=== PATIENT | male | born 1935 | race Caucasian/White ===

== ENCOUNTER → 2020-05-31 | Outpatient (CLI) | payer MEDICARE ==
[~2020-05-31] MED LIST: HYDR-3363 PO; METF-839 PO; NEXI20CA33 PO; TRAM50TA2 PO
--- NOTE | 2020-05-31 13:10 | REP ---
INDICATION: LIVER LESION. Question of liver lesion. Bladder carcinoma. COMPARISON: Comparison CT abdomen pelvis and chest from [facility] December 14, 2019.. TECHNIQUE: Axial and coronal T1 and T2 weighted sequences include spin echo, fast spin echo, diffusion-weighted scans, and in and out of phase imaging. The patient's EGFR was 14 today and therefore we are on the unable to administer gal contrast a period FINDINGS: Axial and sagittal T1 and T2 weighted scans show homogeneous liver parenchyma without evidence of liver mass lesion. No hepatic cyst is observed. No filling defect is seen in the gallbladder. The spleen is normal in size homogeneous in texture. There appear to be is bilateral pleural effusions, right greater than left. There is moderate bilateral hydronephrosis and hydroureter. The right-sided hydronephrosis is new when compared with the December 14, 2019 study. The left-sided hydronephrosis and hydroureter are more pronounced. There is a cyst in the lower pole the right kidney measuring 3.0 cm in diameter. No renal mass lesion is observed. Diffusion-weighted scans show no significant additional finding. In and out of phase images are unremarkable. No visible adrenal lesion. No retroperitoneal mass or adenopathy is observed. There is no evidence of ascites. IMPRESSION: There is no evidence of liver mass lesion. There is new hydronephrosis on the right and increased hydronephrosis on the left consistent with significant obstructive uropathy. I am told the patient's EGFR is 14. Consider urinary diversion. There is a small right renal cyst. There are small bilateral pleural effusions which are new compared with the December 2019 CT as well. <Electronically signed by Adarsh Martinez > 05/31/20 [id number]
== END ==
LOC: M RAD 11:07
PROVIDERS: ATTEND Internal Medicine Hematology & Oncology
DX: K76.89 Other specified diseases of liver (principal); N13.1 Hydronephrosis with ureteral stricture, not elsewhere classified; N28.1 Cyst of kidney, acquired; J90 Pleural effusion, not elsewhere classified

== ENCOUNTER 2020-06-13 18:49 | Inpatient (IN) | payer MEDICARE ==
[~2020-06-13] VITALS: Ht 165.1 cm; Wt 67.9 kg
[2020-06-13] MEDS ORDERED: LIDOCAINE 2% 5ML JELLY UROJET TOP ONE (20:30)
[2020-06-13 22:05] LABS: BASO % 0.5 % (0.0-1.0); EOS # 0.1 10^3/uL (0.0-0.5); EOS % 1.3 % (0.0-3.0); HEMOGLOBIN 9.9 g/dl (13.5-17.5); LYMPH # 1.4 10^3/uL (1.5-5.0); LYMPH % 22.3 % (24.0-44.0); MEAN CORPUSCULAR HEMOGLOBIN 29.5 pg (27.0-33.0); MEAN CORPUSCULAR HGB CONC 30.9 g/dl (32.0-36.5); MEAN CORPUSCULAR VOLUME 95.2 fl (80.0-96.0); MONO # 0.6 10^3/uL (0.0-0.8); MONO % 8.7 % (0.0-5.0); NEUTROPHILS # 4.2 10^3/uL (1.5-8.5); NEUTROPHILS % 66.7 % (36.0-66.0); PLATELET COUNT, AUTOMATED 224 10^3/uL (150-450); RED BLOOD COUNT 3.36 10^6/uL (4.30-6.10); WHITE BLOOD COUNT 6.3 10^3/uL (4.0-10.0)
--- NOTE | 2020-06-13 22:07 | REPVR ---
PROCEDURE INFORMATION: Exam: XR Chest, 1 View Exam date and time: 06/13/2020 9:51 PM Age: 84 years old Clinical indication: Other: R/O pna TECHNIQUE: Imaging protocol: XR of the chest Views: 1 view. COMPARISON: CT CHEST W/ CONTRAST - OUTSIDE PRIOR 12/14/2019 12:00 AM FINDINGS: Lungs: Increased interstitial markings demonstrated bilaterally. No segmental or lobar infiltrates. Pleural space: Unremarkable. No pleural effusion. No pneumothorax. Heart/Mediastinum: Unremarkable. No cardiomegaly. Bones/joints: Degenerative arthropathy both glenohumeral joints. IMPRESSION: No acute findings. Electronically signed by: Savage Rand On 06/13/2020 22:08:05 PM
[2020-06-13 22:34] LABS: ALBUMIN 3.2 GM/DL (3.2-5.2); BILIRUBIN,TOTAL 0.4 MG/DL (0.2-1.0); CALCIUM LEVEL 7.7 MG/DL (8.8-10.2); CREATININE FOR GFR 8.78 MG/DL (0.70-1.30); GLOMERULAR FILTRATION RATE 6.2 (>35); TOTAL PROTEIN 6.1 GM/DL (6.4-8.2)
[2020-06-13] MEDS ORDERED: DEXTROSE 50% 50 ML SYRINGE IV STA (22:34)
[2020-06-13] MEDS ORDERED: HumuLIN R (REGULAR) INSULIN (NovoLIN R) **100U/ML** PER UNIT IV STA (22:34)
[2020-06-13 22:35] LABS: POTASSIUM SERUM 6.6 MEQ/L (3.5-5.1)
[2020-06-13] MEDS ORDERED: SOD POLYSTYRENE SULFONATE SUSP 15 GM/60 ML UD PO ONE (22:45)
[2020-06-13] MEDS ORDERED: ALBUTEROL SULFATE 2.5 MG/0.5 ML INH NEB SOLN NEB ONE (22:45)
--- NOTE | 2020-06-13 22:46 | ED PDOC ---
Post-Departure Follow-Up 84 yo M with a history of bladder carcinoma s/p TURBT (October 2019) and NIDDM prese nts with difficulty urinating. He reports that he had a quiles catheter placed approximately 8 months ago due to urinary incontinence. His cath was changed approximately 3 weeks ago, and typically fills his leg bag every 3-4 hours. However, about 2 days ago he stopped draining any urine into his quiles bag. He is also complaining of sharp pleuritic R sided chest pain that lasts a few seconds over the past few days. He has not treated his symptoms. His associated symptoms include SOB, OLSEN, decreased PO, and dry mouth. He denies fever, chills, increased sweating, nausea, vomiting, diarrhea, cough, LH, palpitation, leg pain/swelling, dysuria, hematuria, recent travel/hospitalization or other symptoms. His exam is notable for a quiles and a leg bag with approximately 15cc of whitish yellow clumps mixed with urine. He has mild RUQ tenderness without peritoneal signs. He is hypertensive, but afebrile, hemodynamically stable, and nontoxic appearing. His symptoms are concerning for renal failure secondary to progressio n of his bladder cancer. His CP is most likely MSK pain vs PE. I have a lower suspicion for ACS, aortic dissection, pna or pneumothorax. Labs, imaging and EKG were obtained. I reviewed his imaging/oncology notes over the past 3 months, and the patient's recent EGFR was 14. He was offered a cystectomy with urinary diversion, however the patient declined and opted for conservative management and to monitor his disease progression. His work up was notable for an elevated Cr 8.78 (previously 4.23), K 6.6 (p reviously 5.2), and troponin 0.14. He was given a hyperkalemia cocktail. I spoke with Dr. Cuevas, who accepted the patient but also request that I consult Dr. Swanson in Nephrology regarding his renal failure and ordering a CTPA to rule out PE. Dr. Swanson agreed with the hyperkalemia cocktail, and anticoagulating if his D dimer is elevated with the plan to obtain a V/Q scan in the morning. SUSAN LOPES MD Jun 13, 2020 22:46
[2020-06-13] MEDS ORDERED: SODIUM BICARBONATE 150 MEQ in D5W 1,000 ML IV SCH (22:55)
--- NOTE | 2020-06-13 23:05 | REPVR ---
PROCEDURE INFORMATION: Exam: CT Abdomen And Pelvis Without Contrast Exam date and time: 06/13/2020 10:43 PM Age: 84 years old Clinical indication: Condition or disease; Cancer; Other: Bladder; Additional info: H/o bladder cancer p/w anuria x 2 d R/O disease progression TECHNIQUE: Imaging protocol: Computed tomography of the abdomen and pelvis without contrast. Radiation optimization: All CT scans at this facility use at least one of these dose optimization techniques: automated exposure control; mA and/or kV adjustment per patient size (includes targeted exams where dose is matched to clinical indication); or iterative reconstruction. COMPARISON: CT ABD/PELVIS W/ & W/O CONTRAST - OUTSIDE PRIOR 12/14/2019 12:00 AM FINDINGS: Lungs: Bibasilar atelectasis. Pleural space: Moderate pleural effusion on the right and small pleural effusion on the left. Liver: Normal. No mass. Gallbladder and bile ducts: Normal. No calcified stones. No ductal dilation. Pancreas: There is diffuse pancreatic atrophy. Spleen: The spleen demonstrates punctate calcifications, consistent with remote granulomatous organism exposure. Adrenal glands: Normal. No mass. Kidneys and ureters: Moderate to severe bilateral hydroureteronephrosis to the level of the urinary bladder. 2.8 cm cyst in the posterior aspect of the right kidney stable in comparison to the prior study. No follow-up suggested. Stomach and bowel: Moderate diverticulosis is present in the distal colon. No diverticulitis. Appendix: No evidence of appendicitis. Intraperitoneal space: Unremarkable. No free air. No significant fluid collection. Vasculature: Unremarkable. No abdominal aortic aneurysm. Lymph nodes: Small retroperitoneal lymph nodes of uncertain significance. Nodes appear to have enlarged slightly in comparison to the prior examination of 12/14/2019, finding which may indicate metastatic involvement. Urinary bladder: Diffuse thickening of the wall of the urinary bladder which is incompletely distended. Thickening of the bladder wall based on history in part likely related to the presence of diffuse bladder neoplasm. Reproductive: Unremarkable as visualized. Bones/joints: S shaped scoliosis lumbar spine. The spine demonstrates moderate degenerative changes. Acute severe central spinal stenosis L2-L3, L3-L4 and moderate central spinal stenosis L4-L5. Stable compression deformities in the thoraco lumbar spine. Soft tissues: There is soft tissue edema demonstrated in the abdominal wall, flanks and buttock regions consistent with anasarca. Bilateral inguinal hernias with the hernia on the left containing a loop of colon. No obvious incarceration of low clinical evaluation suggested to exclude occult incarceration. Other findings: Osteoporosis. IMPRESSION: 1. Moderate pleural effusion on the right and small pleural effusion on the left. 2. Anasarca. 3. There is diffuse pancreatic atrophy. 4. Moderate to severe bilateral hydroureteronephrosis to the level of the urinary bladder. 5. Diffuse thickening of the wall of the urinary bladder which is incompletely distended. Thickening of the bladder wall based on history in part likely related to the presence of diffuse bladder neoplasm. 6. Bilateral inguinal hernias with the hernia on the left containing a loop of colon. No obvious incarceration of low clinical evaluation suggested to exclude occult incarceration. 7. Moderate diverticulosis is present in the distal colon. No diverticulitis. 8. Small retroperitoneal lymph nodes of uncertain significance. Nodes appear to have enlarged slightly in comparison to the prior examination of 12/14/2019, finding which may indicate metastatic involvement. Electronically signed by: Savage Rand On 06/13/2020 23:05:52 PM
[2020-06-13 23:44] LABS: TROPONIN I 0.08 NG/ML (< 0.10)
--- NOTE | 2020-06-14 00:22 | HPEPDOC ---
[facility] Medical History & Physical Date of Admission Jun 14, 2020 Date of Service: Jun 14, 2020 History and Physical CHIEF COMPLAINT: Poor urine output HISTORY OF PRESENT ILLNESS: 84 yo M with a history of bladder carcinoma s/p TURBT (October 2019) and NIDDM presents with difficulty urinating for 1.5 days. As per patient, quiles catheter was placed 8 months ago due to incontinence. He says he never had issues with the Quiles, having it changed once every month, last change being 3 weeks ago. He says he fills his bag every 3-4 hours. To me, patient was denying any chest pain, SOB, fevers, chills, nausea, vomiting or diarrhea. In the ED, patient with all vital signs stable saturating 95% on RA. Labs showing normocytic anemia, elevated D-Dimer of 3589, hyperkalemia of 6.6, and BUN 101, Creatinine 8.78 and GFR 6.2. Calcium low at 7.7 with near normal albumin levels. [place] [address] and lipase elevated at 891. In terms of imaging, CXR WNL. Abdominal CT showing moderate pleural effusion bilaterally, anasarca, diffuse pancreatic atrophy, moderate-severe bilateral hydroureteronephrosis, bladder thickening likely 2/2 bladder neoplasm, bilateral inguinal hernias, moderately diverticulosis, slightly enlarged lymph nodes which may indicate metastatic involvement. PAST MEDICAL HISTORY: 1. History of bladder carcinoma s/p TURBT (October 2019) 2. T2DM PAST SURGICAL HISTORY: 1. TURBT (October 2019) SOCIAL HISTORY: Patient denies drinking, smoking or using drugs. Lives with at home ALLERGIES: Please see below. REVIEW OF SYSTEMS: 10 point systems reviewed and negative except as for in HPI HOME MEDICATIONS: Please see below. PHYSICAL EXAMINATION: Constitutional: AO x 3. In no apparent distress HEENT: EOMI. HSAHLA Chest: HS 1+ 2 normal with no added sounds Lungs: no crackles. No wheezing heard Abdomen: Distended, soft. Non-tender to palpation. Back: No CVA tenderness : No quiles in place. Previous quiles bag at bedside with pus inside Extremities: No pitting edema noted Neurological: No FND LABORATORY DATA: See below. IMAGIN. XR WNL. 2. CT abdomen: 1. Moderate pleural effusion on the right and small pleural effusion on the left. 2. Anasarca. 3. There is diffuse pancreatic atrophy. 4. Moderate to severe bilateral hydroureteronephrosis to the level of the urinary bladder. 5. Diffuse thickening of the wall of the urinary bladder which is incompletely distended. Thickening of the bladder wall based on history in part likely related to the presence of diffuse bladder neoplasm. 6. Bilateral inguinal hernias with the hernia on the left containing a loop of colon. No obvious incarceration of low clinical evaluation suggested to exclude occult incarceration. 7. Moderate diverticulosis is present in the distal colon. No diverticulitis. 8. Small retroperitoneal lymph nodes of uncertain significance. Nodes appear to have enlarged slightly in comparison to the prior examination of 12/14/2019, finding which may indicate metastatic involvement. MICROBIOLOGY: Please see below. ASSESSMENT/Plan: 84 yo M with a history of bladder carcinoma s/p TURBT (October 2019) and NIDDM presents with difficulty urinating for 1.5 days. In the ED, CT abdomen showing anasarca, moderate pleural effusions, moderate/severe bilateral hydronephrosis with diffuse bladder wall thickening. Labs significant for hyperkalemia of 6.6, acute on chronic kidney [place] [address] and elevated lipase of 891. Patient admitted for management of poor urinary output. #Poor urinary output -Likely 2/2 bladder cancer invading ureters and kidney. Follows with doctors in [place]. Unable to specify -UA and urine culture ordered given that previous Quiles bag had pus like fluid inside. ED nurse unable to replace quiles -Strict I/Os -Nephrology consulted -Urology consulted: -Unlikely to be able to place stent given spread of cancer -Will likely need at least unilateral nephrostomy tube -Will need to place consult to IR for tube placement #Acute on chronic kidney injury -BUN/Creatinine higher than last admission in mid May. BUN 101 vs 59. Creatinine 4.23 vs 8.78. GFR now 6.2 vs 14.3 -Likely 2/2 bladder wall thickening obstructing outflow of urine -Management as above. Will likely need nephrostomy tube placement #Hyperkalemia -6.6 on admission. S/P albuterol, 10 lispro + dextrose combo + Kayexalate in the ED -Recheck in AM #Hypocalcemia -Corrected calcium 8.3 -Monitor #NIDDM -A1C pending -Hold home medication metformin 500 daily -C/W ISS, Hypoglycemic protocol, accuchecks #Raised BNP -31760 on admission. Likely 2/2 prolonged ESRD and acute on chronic kidney disease -ECHO ordered to evaluate for confounding cause of poor urine output/ cause of patient's anasarca #Anasarca -2/2 Poor urine output. Avoid diuretics as urinary tract outflow obstruction. Will need nephrostomy tube as above #Elevated Lipase -Elevated at 891 -Likely 2/[address] abdomen showing diffuse pancreatic atrophy #HTN -Not on any home medications. Acceptable BP currently -Obtain ECHO to evaluate for heart failure prior to starting Norvasc. #GERD -C/W home med protonix Diet: NPO in anticipation for possible stent placement DVT PPX: SCDs Dispo: Home once medically stable Case discussed with Dr. Mason Bryson MD Hospitalist Resident Vital Signs Vital Signs Date Time Temp Pulse Resp B/P (MAP) Pulse Ox O2 Delivery O2 Flow Rate FiO2 06/14/20 00:04 94 94 06/14/20 00:00 158/82 (107) 06/13/20 18:50 97.3 20 Room Air Laboratory Data Labs 24H Laboratory Tests 2 06/13/20 21:54: Immature Granulocyte % (Auto) 0.5, Neutrophils (%) (Auto) 66.7H, Lymphocytes (%) (Auto) 22.3L, Monocytes (%) (Auto) 8.7H, Eosinophils (%) (Auto) 1.3, Basophils (%) (Auto) 0.5, Neutrophils # (Auto) 4.2, Lymphocytes # (Auto) 1.4L, Monocytes # (Auto) 0.6, Eosinophils # (Auto) 0.1, Basophils # (Auto) 0.0, Nucleated Red Blood Cells % (auto) 0.0, D-Dimer, Quantitative 3589.24H, Anion Gap 15, Glomerular Filtration Rate 6.2L, Calcium Level 7.7L, Total Bilirubin 0.4, Aspartate Amino Transf (AST/SGOT) 32, Alanine Aminotransferase (ALT/SGPT) 47, Alkaline Phosphatase 103, Troponin I 0.08, HC-Cqb-I-Type Natriuretic Peptide 30498W, Total Protein 6.1L, Albumin 3.2, Albumin/Globulin Ratio 1.1, Lipase 891H 06/13/20 21:59: POC Troponin I (Misc) 0.14H 06/13/20 22:55: Coronavirus (COVID-19)(PCR) NEGATIVE CBC/BMP Laboratory Tests 06/13/20 21:54 Home Medications Scheduled Esomeprazole Magnesium (Nexium) 20 Mg Capsule.dr, 20 MG PO DAILY Hydroxyzine HCl (Hydroxyzine HCl) 25 Mg Tablet, 25 MG PO QHS Metformin HCl (Metformin HCl) 500 Mg Tablet, 500 MG PO DAILY Scheduled PRN Tramadol HCl (Tramadol HCl) 50 Mg Tablet, 50 MG PO BID PRN for PAIN Allergies Coded Allergies: No Known Allergies (Unverified , 06/13/20) A-FIB/CHADSVASC A-FIB History Current/History of A-Fib/PAF?: No GME ATTESTATION GME ATTESTATION My faculty preceptor for this patient encounter was physically present during the encounter and was fully available. All aspects of the patient interview, examination, medical decision making process, and medical care plan development were reviewed and approved by the faculty preceptor. The faculty preceptor is aware and concurs with the plan as stated in the body of this note and will attest to such by his/her cosignature. ATTENDING NOTE IRadha, have independently examined this patient and performed my own physical exam, as well as reviewed the documentation and edited where necessary. I have discussed in detail with the resident / student the findings and plan of treatment as documented by the resident / student and edited their note. I agree with their findings and treatment plan and have edited their documentation. I will continue to follow the patient during this hospital stay. CASTRO BRYSON M.D.,PGY-2 Jun 14, 2020 00:22 GRETA HART MD Jun 14, 2020 06:20
[2020-06-14] MEDS ORDERED: TRAM50TA2 PO (01:52)
[2020-06-14] MEDS ORDERED: NEXI20CA PO (01:52)
--- NOTE | 2020-06-14 04:25 | SMCUROLCON ---
Urology Consultation General Date of Consultation 06/14/20 Reason For Consultation This patient is seen for Acute Renal Failure, Anuria. 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 He presented to the hospital today with acute renal failure stating that he has not made any urine in 2 days. Laboratory studies show an EGFR 6.[address] scan shows bilateral hydroureteronephrosis with ureteral dilation down to the level of the bladder and a very thick-walled nondistended bladder. Urology was called to help manage the patient especially has bilateral hydronephrosis and renal failure. I reviewed the patient's chart and history. He was first diagnosed with prostate cancer 2001 followed by external beam radiation therapy. His current PSA is 0.24. 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 At that time he was offered radical cystectomy however the patient is not a very good surgical candidate and he refused the procedure anyway. Shortly thereafter a Ahn catheter was placed because of retention and this has been changed periodically. He appears to have had some bilateral hydronephrosis dating back to June of this year. Past Medical History Medical History Bladder cancer Prostate cancer Bilateral hydroureteronephrosis Diabetes Acute on chronic renal failure Surgical Hstory Prostate biopsy External radiation of the prostate Transurethral resection bladder tumor Social History Alcohol: Denies Drugs: denies Medications Current Medications Current Medications Medications (Trade) Dose Ordered Sig/Fish Route PRN Reason Start Time Stop Time Status Last Admin Dose Admin Dextrose (Dextrose 50%) 50 ml STAT STAT IV 06/13/20 22:34 06/13/20 22:38 DC 06/13/20 23:19 Home Med (Med Rec Complete!) ASDIRECTED XX 06/14/20 02:00 06/14/20 01:54 DC Insulin Human Regular (HumuLIN R INSULIN) 10 units STAT STAT IV 06/13/20 22:34 06/13/20 22:38 DC 06/13/20 23:20 Sodium Bicarbonate 150 meq/Dextrose/Water 1,150 ml @ 250 mls/hr Q4H36M IV 06/13/20 22:55 06/14/20 02:54 DC 06/13/20 23:21 Allergies Allergies: Coded Allergies: No Known Allergies (Unverified , 12/30/20) Review of Systems General: Reports: Fatigue, Malaise Constitutional: Reports: Weakness Eyes: Denies: Pain, Vision change ENT: Denies: Head Aches, Sore Throat, Epistaxis Skin: Denies: Rash, Lesions, Breakdown, Nail Changes Genitourinary: Reports: Other Symptoms (history of urinary retention requiring Ahn catheterization) Physical Examination General Exam: Alert, No Acute Distress EYE EXAM: PERRLA, Conjunctiva & lids normal, EOMI; No: Sclera icteric ENT EXAM: Atraumatic, Mucous membr. moist/pink, Pharynx Normal Abdomen Exam: Normal Bowel Sounds, Soft; No: Tenderness, Hepatospenomegaly Neuro Exam: Normal Gait, Normal Speech, Cranial Nerves 3-12 NL, Reflexes 2+ Psych Exam: Mental status NL, Mood NL, Oriented x 3 Vital Signs/I&O Vital Signs Date Time Temp Pulse Resp B/P (MAP) Pulse Ox O2 Delivery O2 Flow Rate FiO2 06/14/20 00:04 94 94 06/14/20 00:00 158/82 (107) 06/13/20 18:50 97.3 20 Room Air Laboratory Data 24H Labs Laboratory Tests 2 06/13/20 21:54: Immature Granulocyte % (Auto) 0.5, Neutrophils (%) (Auto) 66.7H, Lymphocytes (%) (Auto) 22.3L, Monocytes (%) (Auto) 8.7H, Eosinophils (%) (Auto) 1.3, Basophils (%) (Auto) 0.5, Neutrophils # (Auto) 4.2, Lymphocytes # (Auto) 1.4L, Monocytes # (Auto) 0.6, Eosinophils # (Auto) 0.1, Basophils # (Auto) 0.0, Nucleated Red Blood Cells % (auto) 0.0, D-Dimer, Quantitative 3589.24H, Anion Gap 15, Glomerular Filtration Rate 6.2L, Calcium Level 7.7L, Total Bilirubin 0.4, Aspartate Amino Transf (AST/SGOT) 32, Alanine Aminotransferase (ALT/SGPT) 47, Alkaline Phosphatase 103, Troponin I 0.08, ZC-Czf-J-Type Natriuretic Peptide 26400B, Total Protein 6.1L, Albumin 3.2, Albumin/Globulin Ratio 1.1, Lipase 891H 06/13/20 21:59: POC Troponin I (Misc) 0.14H 06/13/20 22:55: Coronavirus (COVID-19)(PCR) NEGATIVE CBC/BMP Laboratory Tests 06/13/20 21:54 Assessment Muscle invasive bladder cancer with diffuse bladder wall thickening Bilateral hydroureteronephrosis Prostate cancer treated with external beam radiation therapy Plan At this point, I believe that the best treatment for this patient would be to have bilateral percutaneous nephrostomy tubes inserted. He is not a very good surgical candidate for even cystoscopic evaluation with anesthesia, but despite this, the likelihood of even being able to find the ureteral orifice easily is extremely slim. Plus, these tubes would need to be changed periodically under anesthesia and the patient simply is not going to be a candidate for this. I therefore would recommend interventional radiology consult for percutaneous nephrostomy tube insertion preferably bilaterally, however even just one side would help improve the patient's renal function. Thank you for the opportunity to help care for this patient and if I can be of any further service please contact me. MARK WOOD MD Jun 14, 2020 04:10
[2020-06-14] MEDS ORDERED: DEXTROSE 50% 50 ML SYRINGE IV PRN (05:45)
[2020-06-14] MEDS ORDERED: GLUCOSE 4GM CHEW TABLET PO PRN (05:45)
[2020-06-14] MEDS ORDERED: GLUCAGON INJ 1MG VIAL SC PRN (05:45)
[2020-06-14 07:49] LABS: BASO % 0.8 % (0.0-1.0); EOS # 0.1 10^3/uL (0.0-0.5); EOS % 2.7 % (0.0-3.0); HEMATOCRIT 29.3 % (42.0-52.0); HEMOGLOBIN 9.4 g/dl (13.5-17.5); LYMPH # 1.6 10^3/uL (1.5-5.0); LYMPH % 30.1 % (24.0-44.0); MEAN CORPUSCULAR HEMOGLOBIN 30.7 pg (27.0-33.0); MEAN CORPUSCULAR HGB CONC 32.1 g/dl (32.0-36.5); MEAN CORPUSCULAR VOLUME 95.8 fl (80.0-96.0); MONO # 0.6 10^3/uL (0.0-0.8); MONO % 11.4 % (0.0-5.0); NEUTROPHILS # 2.9 10^3/uL (1.5-8.5); NEUTROPHILS % 54.8 % (36.0-66.0); PLATELET COUNT, AUTOMATED 182 10^3/uL (150-450); RED BLOOD COUNT 3.06 10^6/uL (4.30-6.10); WHITE BLOOD COUNT 5.2 10^3/uL (4.0-10.0)
[2020-06-14 08:23] LABS: BLOOD UREA NITROGEN 99 MG/DL (7-18); CALCIUM LEVEL 7.4 MG/DL (8.8-10.2); CARBON DIOXIDE LEVEL 20 MEQ/L (21-32); CHLORIDE LEVEL 108 MEQ/L (98-107); CREATININE FOR GFR 9.34 MG/DL (0.70-1.30); GLOMERULAR FILTRATION RATE 5.8 (>35); GLUCOSE, FASTING 81 MG/DL (70-100); SODIUM LEVEL 140 MEQ/L (136-145)
[2020-06-14 08:24] LABS: ALBUMIN 2.8 GM/DL (3.2-5.2); ALT/SGPT 38 U/L (12-78); BILIRUBIN,TOTAL 0.4 MG/DL (0.2-1.0); FERRITIN 248 NG/ML (26-388); IRON (FE) 34 UG/DL (65-175); LIPASE 644 U/L (73-393); PERCENT SATURATION 14.7 % (19.7-50.0); TOTAL IRON BINDING CAPACITY 231 UG/DL (250-450); TOTAL PROTEIN 4.9 GM/DL (6.4-8.2)
[2020-06-14] MEDS: HumaLOG INSULIN (NovoLOG) PER UNIT SC SCH ×2 (08:39→11:59)
[2020-06-14 09:31] LABS: HEMOGLOBIN A1c 5.9 %
[2020-06-14] MEDS ORDERED: GLUC4GMTAB PO (11:20)
[2020-06-14] MEDS ORDERED: DEXT50SY3 IV (11:20)
[2020-06-14] MEDS ORDERED: GLUC1INJ21 SC (11:20)
--- NOTE | 2020-06-14 11:37 | DS.PDOC ---
Discharge Summary General Date of Admission Jun 13, 2020 at 23:49 Date of Discharge Jun 14, 2020 Attending Physician: NAVJOT NOE DO Specialist/Consultants [facility], Dr. Fair Discharge Summary PROCEDURES PERFORMED DURING STAY: None ADMITTING DIAGNOSES: 1. Obstructive acute renal failure 2. Hyperkalemia 3. Severe bilateral hydroureteronephrosis 4. Non-insulin dependent diabetes mellitus 5. GERD DISCHARGE DIAGNOSES: 1. Obstructive acute renal failure 2. Hyperkalemia 3. Severe bilateral hydroureteronephrosis 4. Non-insulin dependent diabetes mellitus 5. GERD COMPLICATIONS/CHIEF COMPLAINT: Acute Renal Failure, Anuria. HISTORY OF PRESENT ILLNESS: Mr. Nuñez is an 84 year old male with bladder carcinoma s/p TURBT, prostate cancer s/p external kern radiation, and chronic urinary retention here after his Ahn catheter stopped producing urine. Since October 2019, he has been managing his Ahn catheter without problem and frequently changes the bag. About 2 days ago, his Ahn catheter stopped producing urine, and since it was not improving, he came into the ED. He was found to have acute obstructive renal failure with creatinine of 9 and potassium of 6.6. He was given insulin and dextrose as well as Kayexalate. Potassium improved to 4.9. CT of the abd/pelvis demonstrated severe bilateral hydroureteronephrosis. Urology was consulted. Recommended nephrostomy tubes and the blockage was above the bladder. Suspecting the cancer and radiation causing the obstruction. Patient was admitted HOSPITAL COURSE: I spoke with IR this morning. They are not available until Thursday. I spoke with urology, and they recommended transfer. I spoke with the patient about transfer. If we don't transfer, he may develop ESRD and may require dialysis. He could also from arrhythmia from the hyperkalemia. He is agreeable for transfer for the nephrostomy tubes. I called [facility] and pushed the images. I spoke with [facility] [place] IR, Dr. Sawant, and he was agreeable to placing the nephrostomy tubes. I spoke to [facility] [place] hospitalist, Dr. Belcher who accepted the transfer. Patient will be transferred now. DISCHARGE MEDICATIONS: Please see below. ALLERGIES: Please see below. PHYSICAL EXAMINATION ON DISCHARGE: VITAL SIGNS: Please see below. GENERAL: Mild distress complaining of back pain HEENT: Head normocephalic, atraumatic, EOMI, sclera clear NECK: Supple CARDIOVASCULAR EXAMINATION: Regular rate and rhythm RESPIRATORY EXAMINATION: Lungs clear to auscultation bilaterally ABDOMINAL EXAMINATION: Soft, nontender to palpation, decreased bowel sounds EXTREMITIES: No pitting edema SKIN: Warm and dry NEUROLOGICAL EXAMINATION: CN 3-12 grossly intact PSYCHIATRIC EXAMINATION: Normal mood and affect LABORATORY DATA: Please see below. IMAGING: (Radiology impression) CXR No acute findings. CT abd/pelvis without contrast 1. Moderate pleural effusion on the right and small pleural effusion on the left. 2. Anasarca. 3. There is diffuse pancreatic atrophy. 4. Moderate to severe bilateral hydroureteronephrosis to the level of the urinary bladder. 5. Diffuse thickening of the wall of the urinary bladder which is incompletely distended. Thickening of the bladder wall based on history in part likely related to the presence of diffuse bladder neoplasm. 6. Bilateral inguinal hernias with the hernia on the left containing a loop of colon. No obvious incarceration of low clinical evaluation suggested to exclude occult incarceration. 7. Moderate diverticulosis is present in the distal colon. No diverticulitis. 8. Small retroperitoneal lymph nodes of uncertain significance. Nodes appear to have enlarged slightly in comparison to the prior examination of 12/14/2019, finding which may indicate metastatic involvement. PROGNOSIS: Guarded ACTIVITY: As tolerated. DIET: NPO for procedure DISCHARGE PLAN: Transfer to [facility] for nephrostomy tube placement DISPOSITION: Transfer DISCHARGE INSTRUCTIONS: 1. Follow up with hospitalist at [facility] on arrival 2. On discharge from hospital, follow up with PCP within 7 days DISCHARGE CONDITION: Stable Total time spent on discharge planning, discharge summary, and medication reconciliation: 55 minutes Vital Signs/I&Os Vital Signs Date Time Temp Pulse Resp B/P (MAP) Pulse Ox O2 Delivery O2 Flow Rate FiO2 06/14/20 08:34 90 90 06/14/20 08:30 142/77 (98) 06/14/20 07:40 97.8 06/13/20 18:50 20 Room Air I&O- Last 24 Hours up to 6 AM 06/14/20 06:00 Intake Total 1000 ml Balance 1000 ml Laboratory Data Labs 24H Laboratory Tests 2 06/13/20 21:54: Immature Granulocyte % (Auto) 0.5, Neutrophils (%) (Auto) 66.7H, Lymphocytes (%) (Auto) 22.3L, Monocytes (%) (Auto) 8.7H, Eosinophils (%) (Auto) 1.3, Basophils (%) (Auto) 0.5, Neutrophils # (Auto) 4.2, Lymphocytes # (Auto) 1.4L, Monocytes # (Auto) 0.6, Eosinophils # (Auto) 0.1, Basophils # (Auto) 0.0, Nucleated Red Blood Cells % (auto) 0.0, D-Dimer, Quantitative 3589.24H, Anion Gap 15, Glomerular Filtration Rate 6.2L, Calcium Level 7.7L, Total Bilirubin 0.4, Aspartate Amino Transf (AST/SGOT) 32, Alanine Aminotransferase (ALT/SGPT) 47, Alkaline Phosphatase 103, Troponin I 0.08, EV-Fiz-H-Type Natriuretic Peptide 27521T, Total Protein 6.1L, Albumin 3.2, Albumin/Globulin Ratio 1.1, Lipase 891H 06/13/20 21:59: POC Troponin I (Misc) 0.14H 06/13/20 22:55: Coronavirus (COVID-19)(PCR) NEGATIVE 06/14/20 07:16: Immature Granulocyte % (Auto) 0.2, Neutrophils (%) (Auto) 54.8, Lymphocytes (%) (Auto) 30.1, Monocytes (%) (Auto) 11.4H, Eosinophils (%) (Auto) 2.7, Basophils (%) (Auto) 0.8, Neutrophils # (Auto) 2.9, Lymphocytes # (Auto) 1.6, Monocytes # (Auto) 0.6, Eosinophils # (Auto) 0.1, Basophils # (Auto) 0.0, Nucleated Red Blood Cells % (auto) 0.0, Anion Gap 12, Glomerular Filtration Rate 5.8L, Calcium Level 7.4L, Total Bilirubin 0.4, Aspartate Amino Transf (AST/SGOT) 21, Alanine Aminotransferase (ALT/SGPT) 38, Alkaline Phosphatase 93, Total Protein 4.9L, Albumin 2.8L, Albumin/Globulin Ratio 1.3, Lipase 644H, Estimated Mean Plasma Glucose 123H, Hemoglobin A1c 5.9, Iron Level 34L, Total Iron Binding Capacity 231L, Transferrin % Saturation 14.7L, Ferritin 248 06/14/20 08:31: Bedside Glucose (Misc Panel) 74L CBC/BMP Laboratory Tests 06/13/20 21:54 06/14/20 07:16 FSBS Laboratory Tests Test 06/14/20 08:31 Range/Units Bedside Glucose (Misc Panel) 74 83-110 MG/DL Discharge Medications Scheduled Esomeprazole Magnesium (Nexium) 20 Mg Capsule.dr, 20 MG PO DAILY, (Reported) Hydroxyzine HCl (Hydroxyzine HCl) 25 Mg Tablet, 25 MG PO QHS, (Reported) Scheduled PRN Dextrose (Glucose) 4 Gm Tab.chew, 0 GM PO ASDIRECTED PRN for SEE LABEL COMMENTS Dextrose (Dextrose 50%-Water Syringe) 50 Ml Syringe, 25 ML IV ASDIRECTED PRN for SEE LABEL COMMENTS Glucagon,Human Recombinant (Glucagen) 1 Mg/1 Ml Vial, 1 MG SC ASDIRECTED PRN for SEE LABEL COMMENTS Allergies Coded Allergies: No Known Allergies (Unverified , 06/13/20) NAVJOT NOE DO Jun 14, 2020 11:37
[2020-06-14 11:50] LABS: INR 1.16; PROTHROMBIN TIME 15.1 SECONDS (12.5-14.3)
[2020-06-14 11:51] LABS: PARTIAL THROMBOPLASTIN TIME 27.2 SECONDS (24.2-38.5)
[2020-06-14 12:02] LABS: FOLATE > 24.0 NG/ML (>5.4); VITAMIN B12 LEVEL 1415 PG/ML (247-911)
--- NOTE | 2020-06-14 13:04 | CR ---
CONSULTATION DATE: 06/14/2020 CONSULTATION FOR: Woo Ceuvas M.D. REASON FOR CONSULTATION: Acute renal failure. HISTORY OF PRESENT ILLNESS: Mr. Nuñez is a 84-year-old gentleman with known history of bladder carcinoma, status post transurethral resection of bladder tumor ( TURBT) in October this year. He also has history of diabetes but no known history of chronic kidney problems. He presented to emergency room with difficulty to urinate. He was found to have acute renal failure with creatinine 8.7 and BUN 101. He was also noticed to have bilateral hydronephrosis on the CT scan of abdomen and pelvis. He is seen by urology and felt to be not a suitable candidate for suprapubic catheter or Ahn catheter due to bladder cancer. He is in need for bilateral nephrostomy tube placement, which cannot be performed here in [facility] over the weekend because of interventional radiology service not available. He likely could be transferred to [place] today. MEDICAL HISTORY: Significant for: 1. Type 2 diabetes. 2. History of bladder cancer, status post TURBT. HOME MEDICATIONS: Metformin, hydroxyzine, and Nexium. He also takes Tramadol as needed. ALLERGIES: Patient has no known drug allergies. PERSONAL AND SOCIAL HISTORY: Patient denies any alcohol or tobacco use. He lives with his . FAMILY HISTORY: Negative for kidney disease. REVIEW OF SYSTEMS: Patient denies any dyspnea or chest pain. There is no fever or chills. EARS, NOSE, AND THROAT: Unremarkable. CARDIOVASCULAR SYSTEM: Negative for dyspnea or chest pain. RESPIRATORY SYSTEM: Negative for cough or hemoptysis. GASTROINTESTINAL SYSTEM: Negative for vomiting or diarrhea. GENITOURINARY SYSTEM: As per history of present illness. MUSCULOSKELETAL SYSTEM: Negative for any leg edema. He denies any nonsteroidal anti-inflammatory drug (NSAID) use. PSYCHOSOCIAL SYSTEM: Negative for depression or anxiety. NEUROLOGIC SYSTEM: Negative for seizures or stroke. HEMATOLOGIC SYSTEM: Negative for any long-term anticoagulation. SKIN: Negative for rash or ulcers. PHYSICAL EXAMINATION: Temperature 98 degrees Fahrenheit, heart rate 86 per minute, respiratory rate 16 per minute, blood pressure 163/85 mmHg, and oxygen saturation 93% on room air. Head is atraumatic. Neck supple, and jugular venous distention (JVD) is about 7 cm above sternal angle. Heart sounds are regular and lungs clear to auscultation. Abdomen soft and nontender. There is suprapubic area fullness. Bowel sounds are present . Extremities without any cyanosis or clubbing. Neurologically, he is awake, alert, and at his baseline mentation. LABORATORY DATA: WBC count 5.2, hemoglobin 9.4, hematocrit 29.3. Sodium 140, potassium 5.0, CO2 of 20, BUN 99, creatinine 9.34. Glucose 81 and A1c 5.9. Yesterday his sodium was 139 and potassium 6.6. CO2 was 15. Patient had CT scan of abdomen and pelvis done, which showed bilateral hydronephrosis and hydroureter. Diffuse thickening of the wall of the bladder was noticed. He also moderate right and small left pleural effusion. PROBLEMS: 1. Acute renal failure. This is related to obstructive uropathy. Patient has history of bladder cancer with bilateral hydronephrosis and hydroureter up to the bladder. Most likely this is related to the cancer infiltrating. Patient is going to need bilateral nephrostomy tube placement. Interventional radiology service at [facility] is not available, so patient can be transferred to [place] for urology and interventional care. 2. Bladder cancer. Patient was told by urology that he has aggressive and rapidly growing cancer. He is likely to require a radical cystectomy. 3. Metabolic acidosis. He did have metabolic acidosis last evening on his lab work, which has improved. Once he gets nephrostomy tube placement, his kidney function and acidosis are likely to improve. 4. 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 At this point, we will monitor without any intervention. Thank you for involving me in the care of Mr. Nuñez.
--- NOTE | 2020-06-14 13:35 | ECGEPIP ---
[facility] - ED Test Date: 2020-06-13 Pat Name: GOYO LEDESMA Department: Room: 01[facility] Gender: Male [employer]: SAMEER : 1935 Requested By: SUSAN Hayward Order Number: [id number] Reading MD: Sneha Brown Measurements Intervals [place] Rate: 80 P: 75 MN: 147 QRS: -26 QRSD: 97 T: 39 QT: 368 QTc: 426 Interpretive Statements SINUS RHYTHM BORDERLINE LEFT AXIS DEVIATION LOW QRS VOLTAGE IN EXTREMITY LEADS POSSIBLE RIGHT VENTRICULAR CONDUCTION DELAY No prior Electronically Signed on 06-14-2020 13:35:15 EST by Sneha Brown
[2020-06-14 14:00] VITALS: BP 143/84
[2020-06-14] MEDS ORDERED: HumaLOG INSULIN (NovoLOG) PER UNIT SC SCH (21:00)
== END 2020-06-18 14:03 | disposition home or self-care (01) | DRG 687 ==
LOC: M ED 18:49 → M ED INP 23:49
PROVIDERS: ADMIT Family Medicine; ATTEND Internal Medicine
DX: C67.9 Malignant neoplasm of bladder, unspecified (principal); N13.30 Unspecified hydronephrosis; N17.9 Acute kidney failure, unspecified; E87.2 Acidosis; E87.5 Hyperkalemia; E11.9 Type 2 diabetes mellitus without complications; K21.9 Gastro-esophageal reflux disease without esophagitis; E83.51 Hypocalcemia; Z79.899 Other long term (current) drug therapy; Z85.46 Personal history of malignant neoplasm of prostate; D63.1 Anemia in chronic kidney disease

== ENCOUNTER 2021-04-29 12:27 | Emergency (ER) | payer MEDICARE ==
[~2021-04-29] VITALS: Ht 160 cm; Wt 62.3 kg
[~2021-04-29 12:27] MED LIST changes: +DEXT50SY3 IV; +GLUC1INJ21 SC; +GLUC4GMTAB PO; +NEXI20CA PO
--- OUTSIDE RECORDS SUMMARY | 2021-04-29 12:38 | CCD | Continuity of Care Document ---
Author Author David GONZÁLES D.O. Organization Unknown Address [address] [place] [address] Phone [phone] Care Team Providers Care [employer] Name Role Phone Eber Gonzáles D.O. AUTM [phone] Problems Active Problems Provider Date Malignant tumor of prostate Eber Gonzáles D.O., FAAFP Ons et: 03/17/2003 Hyperlipidemia Phong Rondon M.D. Onset: 11/21/2004 Gastroesophageal reflux disease Eber Gonzáles D.O., FAAFP Onset: 05/27/2006 Benign essential hypertension Eber Gonzáles D.O., FAAFP O nset: 09/29/2011 Essential hypertension Eber Gonzáles D.O., FAAFP Onset: 1 06/24/2014 Chronic kidney disease stage 3 Eber Gonzáles D.O., FAAFP Onset: 03/02/2019 Social History Type Date Description Comments Sex Unknown Tobacco Use Start: Unknown End: Unknown Denies tobacco use. ETOH Use Denies alcohol use. Recreational Drug Use Denies Drug Use Tobacco Use Start: Unknown Patient has never smoked Smoking Status Reviewed: 01/02/21 Patient has never smoked Allergies and adverse reactions Description No Known Drug Allergies Medications Active Medications SIG Qnty Indications Ordering Provide r Date Lomotil 2.5-0.025mg Tablets one by mouth daily as needed diarrhea please call pt 30tabs Emmanuel Gonzáles D.O., JACOB 04/04/2021 Ondansetron HCL 4mg Tablets take one tablet by mouth every 8 hours as needed for nausea 30tabs Eber Gonzáles D.O., PETER 11/29/[address] 1 by mouth every day 90tabs Eber Gonzáles D.O., [facility] Tramadol HCL 50mg Tablets 1 tab by mouth by mouth three times a day 90tabs Eber Gonzáles D.O. , [facility] 01/23/2020 Blood Glucose Test Strips use once a day and as needed (dx: e11.9) 100units E11.9 Eber Gonzáles D.O., [facility] 06/23/2017 Hydroxyzine HCL 25mg Tablets 1 by mouth every at bedtime Unknown History Medications Keflex 500mg Capsules 1 tab by mouth three times a day for 10 days for uti please call pt 30caps Eber Gonzáles D.O., [facility] 01/02/2021 - 04/05/2021 Prednisone 5mg Tablets Take One Tablet By Mouth Every Day 15tabs Eber Gonzáles D.O., [facility] - 04/05/2021 Prednisone 20mg Tablets 1 tab by mouth daily for 7 days with food 7tabs Eber Gonzáles D.O. , [facility] 12/26/2020 - 12/27/2020 Levofloxacin 250mg Tablets 1 by mouth every day please call pt 7tabs Eber Gonzáles D.O., [facility] 11/30/2020 - 12/07/2020 Medications Administered in Office Medication SIG Qnty Indications Ordering Provider Date Injection (SC)/(Im) Injection Eber Gonzáles D.O., [facility] 11/23/2019 Immunizations CPT Code Status Date Vaccine Lot # [id number] Given 11/23/2019 Tdap Tetanus,Dip htheria Toxoids/Acellular Pertussis 7Yrs Or Older [id number] Refused 03/26/2021 Influenza Virus Vaccine, Quadrivalent, Slit Virus, Im Use 3Y & Up 55173 Refused 03/02/2019 Influenza Virus Vaccine, Quadrivalent, Slit Virus, Im Use 3Y & Up 60959 Refused 02/17/2018 Pneumococcal Immunization 28527 Refused 02/17/2018 Influenza Virus Vaccine, Quadrivalent, Slit Virus, Im Use 3Y & Up 11057 Refused 05/13/2017 Influenza Virus Vaccine, Quadrivalent, Slit Virus, Im Use 3Y & Up 28695 Refused 04/24/2015 Influenza Vaccin e (Fluzone) 3Yrs Of Age Or Older Medicare Plans 15140 Refused 04/18/2013 Influenza Virus Vac. Split Virus Individuals 3 Years And Above 23069 Refused 04/13/2012 Pneumococcal Immunization 48852 Refused 04/13/2012 Influenza Virus Vac. Split Virus Individuals 3 Years And Above Vital Signs Date Vital Result Comment 04/05/2021 10:37am BP Systolic 118 mmHg BP Diastolic 78 mmHg Body Temperature 97.3 F Heart Rate 74 /min Respiratory Rate 18 /min Height 62 inches 5'2" Weight 135.00 lb [place] Body Weight 118 lb BMI (Body Mass Index) 24.7 kg/m2 O2 % BldC Oximetry 99 % (AT Rest), (Room Air ) 01/02/2021 2:02pm BP Systolic 116 mmHg BP Diastolic 74 mmHg Body Temperature 97.9 F Heart Rate 76 /min Respiratory Rate 16 /min Height 62 inches 5'2" Weight 136.00 lb [place] Body Weight 118 lb BMI (Body Mass Index) 24.9 kg/m2 O2 % BldC Oximetry 96 % Results Test Acquired Date Facility Test Result H/L Range Note Laboratory test finding 04/05/2021 [facility] [place] Ferritin 318 ng/mL 30-400 CBC 04/05/2021 [facility] WBC 4.7 10E3/uL 4.1 - 10.9 RBC 3.25 10E6/uL Low 4.20 - 6.30 HGB 8.9 g/dL Low 12.0 - 18.0 HCT 28.2 % Low 37.0 - 51.0 MCV 86.8 fL 80.0 - 97.0 MCH 27.4 pg 26.0 - 32.0 MCHC 31.6 g/dL 31.0 - 36.0 PLT 271 10E3/uL 140 - 440 RDW-CV 13.3 % 11.5 - 14.5 Lym% 30.0 % 10.0 - 58.5 Neut% 57.3 % 37.0 - 92.0 MXD% 12.7 % 0.1 - 24.0 Lym# 1.4 10E3/uL 0.6 - 4.1 Neut# 2.7 % 2.0 - 7.8 MXD# 0.6 10E3/uL 0.0 - 1.8 MPV 8.8 fL Low 9.0 - 13.0 Comment VERIFIED Laboratory test finding 04/05/2021 [facility] Sedimentation Rate 60 mm/hr High 0 - 20 Iron And Tibc 04/05/2021 [facility] Iron Bind.Cap.(Tibc) 227 g/dL Low 250-450 Uibc 207 g/dL 111-343 Iron 20 g/dL Low 38-169 Iron Saturation 9 % Critical low 15-55 Basic Metabolic Panel 04/04/2021 [place], [place] [id number] [phone] Basic Metabolic Pane (SEE NOTE) 1, 2 Sodium 139 mEq/L 134 - 153 Potassium 4.4 mEq/L 3.6 - 5.0 Chloride 104 mEq/L 98 - 107 Co2 26 mEq/L 22 - 30 Glucose 105 mg/dL High 70 - 99 BUN 32 mg/dL High 7 - 21 Creatinine 1.9 mg/dL High 0.7 - 1.5 BUN/Creat 17 8 - 27 Calcium 8.9 mg/dL 8.4 - 10.2 Anion Gap 9.0 mmol/L 8.0 - 16.0 Age 85 yrs Afr Amer GFR 44 mL/min Non-Aa GFR 36 mL/min 3 GI Profile, Stool, PCR 03/29/2021 [facility] Campylobacter TNP 4 C difficile toxin A/B TNP 5 Plesiomonas shigelloides TNP 6 Salmonella TNP 7 Vibrio TNP 8 Vibrio cholerae TNP 9 Yersinia enterocolitica TNP 10 Enteroaggregative E coli TNP 11 Enteropathogenic E coli TNP 12 Enterotoxigenic E coli TNP 13 Kvwes-txoxy-wxtvakved E coli TNP 14 E coli O157 TNP 15 Shigella/Enteroinvasive E coli TNP 16 Cryptosporidium TNP 17 Cyclospora cayetanensis TNP 18 Entamoeba histolytica TNP 19 Giardia lamblia TNP 20 Adenovirus F 40/41 TNP 21 Astrovirus TNP 22 Norovirus GI/Gii TNP 23 Rotavirus A TNP 24 Sapovirus TNP 25 Ova + Parasite Exam 03/29/2021 [facility] Ova + Parasite Exam Final report 26 Result 1 See Comment: 27 Laboratory test finding 03/29/2021 [facility] Request Problem TNP 28 GI Profile, Stool, PCR 03/27/2021 [facility] Campylobacter Not Detected Not Detected C difficile toxin A/B Not Detected Not Detected Plesiomonas shigelloides Not Detected Not Detected Salmonella Not Detected Not Detected Vibrio Not Detected Not Detected Vibrio cholerae Not Detected Not Detected Yersinia enterocolitica Not Detected Not Detected Enteroaggregative E coli Not Detected Not Detected Enteropathogenic E coli Not Detected Not Detected Enterotoxigenic E coli Not Detected Not Detected Oxezx-qeddu-minweeafb E coli Not Detected Not Detecte d E coli O157 Not applicable Not Detected Shigella/Enteroinvasive E coli Not Detected Not Detec sis Cryptosporidium Not Detected Not Detected Cyclospora cayetanensis Not Detected Not Detected Entamoeba histolytica Not Detected Not Detected Giardia lamblia Not Detected Not Detected Adenovirus F 40/41 Not Detected Not Detected Astrovirus Not Detected Not Detected Norovirus GI/Gii Not Detected Not Detected Rotavirus A Not Detected Not Detected Sapovirus Not Detected Not Detected Covid-19 03/25/2021 [place] [address] [phone] Sars-CoV-2, Johanne Not Detected Not Detected 29 Sars-CoV-2, Johanne 2 Day Tat Performed CBC W/Automated Diff 02/13/2021 [place] [address] [phone] CBC W/Automated Diff (SEE NOTE) 30, 31 WBC 6.5 10^3/uL 4.2 - 11.0 RBC 3.18 10^6/uL Low 4.50 - 6.30 Hemoglobin 9.3 g/dL Low 14.0 - 16.0 Hematocrit 28.8 % Low 41.0 - 51.0 MCV 90.6 fL 80.0 - 94.0 MCH 29.2 pg 27.0 - 34.0 MCHC 32.3 g/dL 31.0 - 36.0 RDW 13.1 % 11.5 - 14.8 Platelets 251 10^3/uL 150 - 450 MPV 9.8 fL 7.4 - 10.4 Neut 62.9 % 37.0 - 80.0 Lymph 18.7 % Low 25.0 - 40.0 [place] 10.7 % High 3.0 - 8.0 Eos 6.3 % 0.0 - 7.0 Baso 0.8 % 0.0 - 2.0 %Ig 0.6 % High 0.0 - 0.0 %NRBC 0.0 % 0.0 - 0.0 #Neut 4.11 10^3/uL 2.00 - 6.90 #Lymph 1.22 10^3/uL 0.60 - 3.40 #[place] 0.70 10^3/uL 0.00 - 0.90 #Eos 0.41 10^3/uL 0.00 - 0.70 #Baso 0.05 10^3/uL 0.00 - 0.20 #Ig 0.04 10^3/uL 0.00 - 0.10 #NRBC 0.00 10^3/uL 0.00 - 0.00 Manual Diff NOT INDICATED RBC Morph NOT INDICATED Covid-19 01/14/2021 [place] [id number] [phone] Sars-CoV-2, Johanne Not Detected Not Detected 32 Sars-CoV-2, Johanne 2 Day Tat Performed Urine Culture, Routine 01/02/2021 [facility] Urine Culture, Routine Final report Abnormal 33, 34 Result 1 Enterococcus sangeetha <SEE NOTE> Abnormal 35 Result 2 See Comment: Abnormal 36 Antimicrobial Susceptibility See Comment: 37 CBC 01/02/2021 [facility] WBC 5.9 10E3/uL 4.1 - 10.9 38 RBC 3.50 10E6/uL Low 4.20 - 6.30 HGB 10.1 g/dL Low 12.0 - 18.0 HCT 32.3 % Low 37.0 - 51.0 MCV 92.3 fL 80.0 - 97.0 MCH 28.9 pg 26.0 - 32.0 MCHC 31.3 g/dL 31.0 - 36.0 PLT 267 10E3/uL 140 - 440 RDW-CV 13.8 % 11.5 - 14.5 Lym% 35.5 % 10.0 - 58.5 Neut% 54.8 % 37.0 - 92.0 MXD% 9.7 % 0.1 - 24.0 Lym# 2.1 10E3/uL 0.6 - 4.1 Neut# 3.2 % 2.0 - 7.8 MXD# 0.6 10E3/uL 0.0 - 1.8 MPV 8.5 fL Low 9.0 - 13.0 CMP 01/02/2021 [facility] Glu 143 mg/dL High 70 - 110 BUN 49 mg/dL High 8 - 23 Creat 2.4 mg/dL High 0.7 - 1.2 BUN/Creatinine Ratio 20.2 Calc Na 142 mmol/L 136 - 145 K 4.4 mmol/L 3.5 - 5.1 CL 107.9 mmol/L High 98.0 - 107.0 Co2 22.4 mmol/L 22.0 - 29.0 CA 8.6 mg/dL 8.6 - 10.2 TP 5.9 g/dL Low 6.6 - 8.7 Alb 3.8 g/dL 3.5 - 5.2 A/G Ratio 1.8 Calc Globulin 2.1 Calc Alp 90.0 U/L 40 - 129 Alt (SGPT) 20 U/L 0 - 41 Ast (Sgot) 15 U/L 0 - 40 Tbili 0.21 mg/dL 0.0 - 1.2 Osmolality-Calculated 297.5 Calc Anion Gap 16 mmol/L eGFR 27 # Calc 39 eGFR Non-Afr. Salvadorean 24 # Calc 40 Laboratory test finding 01/02/2021 [facility] Hemoglobin A1c 5.8 % 4.40 - 6.10 U/A DIP 01/02/2021 [facility] Color lt yellow QUAL Clarity cloudy QUAL Glucose-Ua Negative g/dL Negative Bilirubin,Urine Negative QUAL Negative Ketone Negative mg/dL Negative Specific [place] 1.020 # 1.000 - 1.030 Blood - Ua Large QUAL Abnormal Negative pH 5.0 # 5.0 - 8.0 Protein 30 mg/dL Abnormal Negative Urobilinogen 0.2 NA 0.2 - 1.0 Nitrite Positive QUAL Abnormal Negative Leukocyte Moderate QUAL Abnormal Negative Comment ucs sent out NA High Urine Culture, Routine 11/30/2020 [facility] Urine Culture, Routine Final report Abnormal 41, 42 Result 1 See Comment: Abnormal 43 Result 2 See Comment: Abnormal 44 Antimicrobial Susceptibility See Comment: 45 CBC 11/30/2020 [facility] WBC 4.7 10E3/uL 4.1 - 10.9 46 RBC 3.42 10E6/uL Low 4.20 - 6.30 HGB 9.9 g/dL Low 12.0 - 18.0 HCT 30.5 % Low 37.0 - 51.0 MCV 89.2 fL 80.0 - 97.0 MCH 28.9 pg 26.0 - 32.0 MCHC 32.5 g/dL 31.0 - 36.0 PLT 235 10E3/uL 140 - 440 RDW-CV 13.7 % 11.5 - 14.5 Lym% 24.8 % 10.0 - 58.5 Neut% 61.6 % 37.0 - 92.0 MXD% 13.6 % 0.1 - 24.0 Lym# 1.2 10E3/uL 0.6 - 4.1 Neut# 2.9 % 2.0 - 7.8 MXD# 0.6 10E3/uL 0.0 - 1.8 MPV 9.1 fL 9.0 - 13.0 CMP 11/30/2020 [facility] Glu 168 mg/dL High 70 - 110 BUN 48 mg/dL High 8 - 23 Creat 2.0 mg/dL High 0.7 - 1.2 BUN/Creatinine Ratio 24.0 Calc Na 129 mmol/L Low 136 - 145 K 4.0 mmol/L 3.5 - 5.1 CL 97.3 mmol/L Low 98.0 - 107.0 Co2 21.7 mmol/L Low 22.0 - 29.0 CA 8.8 mg/dL 8.6 - 10.2 TP 6.2 g/dL Low 6.6 - 8.7 Alb 3.9 g/dL 3.5 - 5.2 A/G Ratio 1.7 Calc Globulin 2.3 Calc Alp 98.6 U/L 40 - 129 Alt (SGPT) 24 U/L 0 - 41 Ast (Sgot) 26 U/L 0 - 40 Tbili 0.33 mg/dL 0.0 - 1.2 Osmolality-Calculated 274.8 Calc Anion Gap 14 mmol/L eGFR 34 # Calc 47 eGFR Non-Afr. Salvadorean 30 # Calc 48 U/A DIP 11/30/2020 [facility] Color lt yellow QUAL Clarity cloudy QUAL Glucose-Ua Negative g/dL Negative Bilirubin,Urine Negative QUAL Negative Ketone Negative mg/dL Negative Specific [place] 1.025 # 1.000 - 1.030 Blood - Ua Moderate QUAL Abnormal Negative pH 5.0 # 5.0 - 8.0 Protein 30 mg/dL Abnormal Negative Urobilinogen 0.2 NA 0.2 - 1.0 Nitrite Positive QUAL Abnormal Negative Leukocyte Large QUAL Abnormal Negative Comment SAMPLE QNS NA Covid-19 10/15/2020 [place] [id number] [phone] Sars-CoV-2, Johanne Not Detected Not Detected 49 Sars-CoV-2, Johanne 2 Day Tat Performed 1 Is patient fasting? N 2 BASIC METABOLIC PANEL 3 Male GFR Interprentation 20-49 yrs >60 mL/min Normal 50-59 yrs >56 mL/min Normal 60-69 yrs >49 mL/min Normal 70-79yrs >42 mL/min Normal 80 and above >35 mL/min Normal Female GFR Interpretation 20-39 yrs >60 mL/min Normal 40-49 yrs >58 mL/min Normal 50-59 yrs >51 mL/min Normal 60-69 yrs >45 mL/min Normal 70-79 yrs >39 mL/min Normal 80 and above >32 mL/min Normal 4 Test not performed. No stool culture transport device received. 5 Test not performed 6 Test not performed 7 Test not performed 8 Test not performed 9 Test not performed 10 Test not performed 11 Test not performed 12 Test not performed 13 Test not performed 14 Test not performed 15 Test not performed 16 Test not performed 17 Test not performed 18 Test not performed 19 Test not performed 20 Test not performed 21 Test not performed 22 Test not performed 23 Test not performed 24 Test not performed 25 Test not performed 26 These results were obtained using wet preparation(s) and trichrome stained smear. This test does not include testing for Cryptosporidium parvum, Cyclospora, or Microsporidia. 27 No ova, cysts, or parasites seen. One negative specimen does not rule out the possibility of a parasitic infection. 28 Test not performed. No stool culture transport device received. TEST: [id number] GI Profile, Stool, PCR 29 This nucleic acid amplificat ion test was developed and its performance characteristics determined by [facility]. Nucleic acid amplification tests include RT-PCR and TMA. This test has not been FDA cleared or approved. This test has been authorized by FDA under an Emergency Use Authorization (EUA). This test is only authorized for the duration of time the declaration that circumstances exist justifying the authorization of the emergency use of in vitro diagnostic tests for detection of SARS-CoV-2 virus and/or diagnosis of COVID-19 infection under section 564(b)(1) of the Act, 21 U.S.C. 360bbb-3(b) (1), unless the authorizatio n is terminated or revoked sooner. When diagnostic testing is negative, the possibility of a false negative result should be considered in the context of a patient's recent exposures and the presence of clinical signs and symptoms consistent with COVID-19. An individual without symptoms of COVID-19 and who is not shedding SARS-CoV-2 virus would expect to have a negative (not detected) result in this assay. 30 .~.~R31.0 31 COMPLETE BLOOD COUNT 32 This nucleic acid amplificat ion test was developed and its performance characteristics determined by [facility]. Nucleic acid amplification tests include RT-PCR and TMA. This test has not been FDA cleared or approved. This test has been authorized by FDA under an Emergency Use Authorization (EUA). This test is only authorized for the duration of time the declaration that circumstances exist justifying the authorization of the emergency use of in vitro diagnostic tests for detection of SARS-CoV-2 virus and/or diagnosis of COVID-19 infection under section 564(b)(1) of the Act, 21 U.S.C. 360bbb-3(b) (1), unless the authorizatio n is terminated or revoked sooner. When diagnostic testing is negative, the possibility of a false negative result should be considered in the context of a patient's recent exposures and the presence of clinical signs and symptoms consistent with COVID-19. An individual without symptoms of COVID-19 and who is not shedding SARS-CoV-2 virus would expect to have a negative (not detected) result in this assay. 33 SRC:UA VOIDED 34 Source of Specimen: UA VOIDE D 35 Enterococcus faecalis Source of Specimen: UA VOIDED 50,000-100,000 colony forming units per mL 36 Source of Specimen: UA VOIDE D Nonfermenting gram negative bacilli Greater than 100,000 colony forming units per mL 37 Source of Specimen: UA VOIDE D S = Susceptible; I = Intermediate; R = Resistant P = Positive; N = Negative MICS are expressed in micrograms per mL Antibiotic RSLT#1 RSLT#2 RSLT#3 RSLT#4 Amikacin S Aztreonam I Cefepime S Cefotaxime I Ceftazidime S Ceftriaxone S Ciprofloxacin S Ciprofloxacin S Gentamicin S Imipenem S Levofloxacin S Levofloxacin S Meropenem S Nitrofurantoin S Penicillin S Piperacillin/Tazobactam S Tetracycline S Tetracycline R Ticarcillin/Clavulanate S Tobramycin S Trimethoprim/Sulfa S Vancomycin S 38 NORMAL RANGES Age WBC RBC HGB HCT MCV PLT Adult M 4.1-10.9 4.20-6.30 12.0-18.0 37.0-51.0 80-97 140-440 Adult F 4.1-10.9 4.04-5.48 12.0-18.0 37.0-51.0 80-97 140-440 0 -1 Yr 5.0-20.0 3.9-5.9 15-18 MV: 44 MV: 91 MV: 277 2-9 Yr. 6.0-17.0 3.8-5.4 11-13 MV: 37 MV: 78 MV: 300 10 Yrs. 5.0-13.0 3.8-5.4 12-15 MV: 39 MV: 80 MV: 250 NOTE: * FOR ADULT BLACK MALES AND FEMALES, NORMAL WBC IS 2.9-7.7 K/ML * FOR ADULT BLACK MALES AND FEMALES, NORMAL RBC,HGB, AND HCT IS 5% LESS SOURCE FOR DATA: [employer] 1800 OPERATION MANUAL( AUTOMATED BLOOD COUNTS AND DIFF.) APPENDIX B-3 CHRONIC KIDNEY DISEASE STAGING PER NKF: MALE GFR INTERPRETATION: 20-49 YRS: >60 mL/min Normal 50-59 YRS: >56 mL/min Normal 60-69 YRS: >49 mL/min Normal 70-79 YRS: >42 mL/min Normal 80 and above >35 mL/min Normal FEMALE GRF INTERPRETATION: 20-39 YRS: >60 mL/min Normal 40-49 YRS: >58 mL/min Normal 50-59 YRS: >51 mL/min Normal 60-69 YRS: >45 mL/min Normal 70-79 YRS: >39 mL/min Normal 80 and above >32 mL/min Normal 39 CKD-EPI 40 CKD-EPI 41 SRC:CATHETER 42 Source of Specimen: CATHETER 43 Source of Specimen: CATHETER Escherichia coli, identified by an automated biochemical system. Greater than 100,000 colony forming units per mL 44 Source of Specimen: CATHETER Pseudomonas aeruginosa 10,000-25,000 colony forming units per m L 45 Source of Specimen: CATHETER S = Susceptible; I = Intermediate; R = Resistant P = Positive; N = Negative MICS are expressed in micrograms per mL Antibiotic RSLT#1 RSLT#2 RSLT#3 RSLT#4 Amikacin S Amoxicillin/Clavulanic Acid S Ampicillin I Cefazolin R Cefepime S S Ceftazidime S Cefuroxime S Ciprofloxacin S S Ertapenem S Gentamicin S S Imipenem S S Levofloxacin S S Meropenem S S Nitrofurantoin R Piperacillin S Piperacillin/Tazobactam S Tetracycline S Ticarcillin S Tobramycin S S Trimethoprim/Sulfa S 46 NORMAL RANGES Age WBC RBC HGB HCT MCV PLT Adult M 4.1-10.9 4.20-6.30 12.0-18.0 37.0-51.0 80-97 140-440 Adult F 4.1-10.9 4.04-5.48 12.0-18.0 37.0-51.0 80-97 140-440 0 -1 Yr 5.0-20.0 3.9-5.9 15-18 MV: 44 MV: 91 MV: 277 2-9 Yr. 6.0-17.0 3.8-5.4 11-13 MV: 37 MV: 78 MV: 300 10 Yrs. 5.0-13.0 3.8-5.4 12-15 MV: 39 MV: 80 MV: 250 NOTE: * FOR ADULT BLACK MALES AND FEMALES, NORMAL WBC IS 2.9-7.7 K/ML * FOR ADULT BLACK MALES AND FEMALES, NORMAL RBC,HGB, AND HCT IS 5% LESS SOURCE FOR DATA: [employer] 1800 OPERATION MANUAL( AUTOMATED BLOOD COUNTS AND DIFF.) APPENDIX B-3 CHRONIC KIDNEY DISEASE STAGING PER NKF: MALE GFR INTERPRETATION: 20-49 YRS: >60 mL/min Normal 50-59 YRS: >56 mL/min Normal 60-69 YRS: >49 mL/min Normal 70-79 YRS: >42 mL/min Normal 80 and above >35 mL/min Normal FEMALE GRF INTERPRETATION: 20-39 YRS: >60 mL/min Normal 40-49 YRS: >58 mL/min Normal 50-59 YRS: >51 mL/min Normal 60-69 YRS: >45 mL/min Normal 70-79 YRS: >39 mL/min Normal 80 and above >32 mL/min Normal 47 CKD-EPI 48 CKD-EPI 49 This nucleic acid amplificat ion test was developed and its performance characteristics determined by [facility]. Nucleic acid amplification tests include RT-PCR and TMA. This test has not been FDA cleared or approved. This test has been authorized by FDA under an Emergency Use Authorization (EUA). This test is only authorized for the duration of time the declaration that circumstances exist justifying the authorization of the emergency use of in vitro diagnostic tests for detection of SARS-CoV-2 virus and/or diagnosis of COVID-19 infection under section 564(b)(1) of the Act, 21 U.S.C. 360bbb-3(b) (1), unless the authorizatio n is terminated or revoked sooner. When diagnostic testing is negative, the possibility of a false negative result should be considered in the context of a patient's recent exposures and the presence of clinical signs and symptoms consistent with COVID-19. An individual without symptoms of COVID-19 and who is not shedding SARS-CoV-2 virus would expect to have a negative (not detected) result in this assay. Procedures Date Code Description Status 04/05/2021 12291 Office/Outpatient Established Mo d MDM 30-39 Min Completed 01/02/2021 74375 Office/Outpatient Established Mo d MDM 30-39 Min Completed 11/30/2020 57425 Office/Outpatient Established Mo d MDM 30-39 Min Completed Medical Devices Description No Information Available Encounters Type Date Location Provider Dx Diagnosis Office Visit 04/05/2021 10:30a [facility] Eber Gonzáles D.O ., FAAFP R19.7 Diarrhea, unspecified D64.9 Anemia, unspecified N18.30 Chronic kidney disease, stag e 3 unspecified Office Visit 01/02/2021 1:45p [facility] Eber Gonzáles D.O ., FAAFP N18.30 Chronic kidney disease, stage 3 unspecif ied D64.9 Anemia, unspecified K21.9 Gastro-esophageal reflux dis ease without esophagitis Office Visit 11/30/2020 1:30p [facility] Eber Gonzáles D.Chandan ., FAAFP D64.9 Anemia, unspecified N18.30 Chronic kidney disease, stag e 3 unspecified R10.32 Left lower quadrant pain Assessments Date Code Description Provider 04/05/2021 R19.7 Diarrhea, unspecified Armand Faith.Chandan., FAAFP 04/05/2021 D64.9 Anemia, unspecified EberArmand Maza.O., FAAFP 04/05/2021 N18.30 Chronic kidney disease, stage 3 unspecified Armand Faith.O., FAAFP 01/02/2021 N18.30 Chronic kidney disease, stage 3 unspecified Armand Faith.Chandan., FAAFP 01/02/2021 D64.9 Anemia, unspecified Eber Armand Torres.O., FAAFP 01/02/2021 K21.9 Gastro-esophageal reflux disease without esophagitis Armand Faith.Chandan., FAAFP 11/30/2020 D64.9 Anemia, unspecified Eber bush D.O., JACOBFP 11/30/2020 N18.30 Chronic kidney disease, stage 3 unspecified Eber Gonzáles D.O., JACOBFP 11/30/2020 R10.32 Left lower quadrant pain Eber Gonzáles D.O., PETER Plan of Treatment Future Appointment(s):* 05/01/2021 11:45 am - Eber Gonzáles D.O., PETER at [facility] Functional Status Description No Information Available Mental Status Description No Information Available Referrals Description No Information Available
--- OUTSIDE RECORDS SUMMARY | 2021-04-29 12:38 | CCD | Continuity of Care Document ---
Author Author David GONZÁLES D.O. Organization Unknown Address [address] [place] [address] Phone [phone] Care Team Providers Care [employer] Professional Name Role Phone Eber Gonzáles D.O. AUTM [phone] Problems Active Problems Provider Date Malignant tumor [...] mouth every day 90tabs Eber Gonzáles D.O., [facility] Tramadol HCL 50mg Tablets 1 tab by mouth by mouth three times a day 90tabs Eber Gonzáles D.O. , [facility] 01/23/2020 Blood Glucose Test Strips use once a day and as needed (dx: e11.9) 100units E11.9 Eber Gonzáles D.O., [facility] 06/23/2017 Hydroxyzine HCL 25mg Tablets 1 by mouth every at bedtime Unknown History Medications Keflex 500mg Capsules 1 tab by mouth three times a day for 10 days for uti please call pt 30caps Eber Gonzáles D.O., [facility] 01/02/2021 - 04/05/2021 Prednisone 5mg Tablets Take One Tablet By Mouth Every Day 15tabs Eber Gonzáles D.O., [facility] - 04/05/2021 Prednisone 20mg Tablets 1 tab by mouth daily for 7 days with food 7tabs Eber Gonzáles D.O. , [facility] 12/26/2020 - 12/27/2020 Levofloxacin 250mg Tablets 1 by mouth every day please call pt 7tabs Eber Gonzáles D.O., [facility] 11/30/2020 - 12/07/2020 Medications Administered in Office Medication SIG Qnty Indications Ordering Provider Date Injection (SC)/(Im) Injection Eber Gonzáles D.O., [facility] 11/23/2019 Immunizations CPT Code Status Date Vaccine Lot # [id number] Given 11/23/2019 Tdap Tetanus,Dip htheria Toxoids/Acellular Pertussis 7Yrs Or Older [id number] Refused 03/26/2021 Influenza Virus Vaccine, Quadrivalent, Slit Virus, Im Use 3Y & Up 61289 Refused 03/02/2019 Influenza Virus Vaccine, Quadrivalent, Slit Virus, Im Use 3Y & Up 04779 Refused 02/17/2018 Pneumococcal Immunization 53741 Refused 02/17/2018 Influenza Virus Vaccine, Quadrivalent, Slit Virus, Im Use 3Y & Up 44432 Refused 05/13/2017 Influenza Virus Vaccine, Quadrivalent, Slit Virus, Im Use 3Y & Up 32266 Refused 04/24/2015 Influenza Vaccin e (Fluzone) 3Yrs Of Age Or Older Medicare Plans 29663 Refused 04/18/2013 Influenza Virus Vac. Split Virus Individuals 3 Years And Above 86891 Refused 04/13/2012 Pneumococcal Immunization 32597 Refused 04/13/2012 Influenza Virus Vac. Split Virus Individuals 3 Years And Above Vital Signs Date Vital Result Comment 04/05/2021 10:37am BP Systolic 118 mmHg BP Diastolic 78 mmHg Body Temperature 97.3 F Heart Rate 74 /min Respiratory Rate 18 /min Height 62 inches 5'2" Weight 135.00 lb [place] Body Weight 118 lb BMI (Body Mass Index) 24.7 kg/m2 O2 % BldC Oximetry 99 % (AT Rest), (Room Air ) 01/02/2021 2:02pm BP Systolic 116 mmHg BP Diastolic 74 mmHg Body Temperature 97.9 F Heart Rate 76 /min Respiratory Rate 16 /min Height 62 inches 5'2" Weight 136.00 lb [place] Body Weight 118 lb BMI (Body Mass [...] Critical low 15-55 Basic Metabolic Panel 04/04/2021 [place], [place] [id number] [phone] Basic Metabolic Pane (SEE NOTE) 1, 2 [...] TNP 12 Enterotoxigenic E coli TNP 13 Kqdoy-lcych-ozbcwknyd E coli TNP 14 E coli O157 [...] Enterotoxigenic E coli Not Detected Not Detected Bbkmt-nxcba-rpipqowmz E coli Not Detected Not Detecte d [...] Sapovirus Not Detected Not Detected Covid-19 03/25/2021 [place] [address] [phone] Sars-CoV-2, Johanne Not Detected Not Detected 29 Sars-CoV-2, Johanne 2 Day Tat Performed CBC W/Automated Diff 02/13/2021 [place] [address] [phone] CBC W/Automated Diff (SEE NOTE) 30, 31 [...] Lymph 18.7 % Low 25.0 - 40.0 [place] 10.7 % High 3.0 - 8.0 Eos 6.3 % 0.0 - 7.0 Baso 0.8 % 0.0 - 2.0 %Ig 0.6 % High 0.0 - 0.0 %NRBC 0.0 % 0.0 - 0.0 #Neut 4.11 10^3/uL 2.00 - 6.90 #Lymph 1.22 10^3/uL 0.60 - 3.40 #[place] 0.70 10^3/uL 0.00 - 0.90 #Eos 0.41 10^3/uL 0.00 - 0.70 #Baso 0.05 10^3/uL 0.00 - 0.20 #Ig 0.04 10^3/uL 0.00 - 0.10 #NRBC 0.00 10^3/uL 0.00 - 0.00 Manual Diff NOT INDICATED RBC Morph NOT INDICATED Covid-19 01/14/2021 [place] [id number] [phone] Sars-CoV-2, Johanne Not Detected Not Detected 32 [...] eGFR 27 # Calc 39 eGFR Non-Afr. Stateless 24 # Calc 40 Laboratory test finding 01/02/2021 [facility] Hemoglobin A1c 5.8 % 4.40 - 6.10 U/A DIP 01/02/2021 [facility] Color lt yellow QUAL Clarity cloudy QUAL Glucose-Ua Negative g/dL Negative Bilirubin,Urine Negative QUAL Negative Ketone Negative mg/dL Negative Specific [place] 1.020 # 1.000 - 1.030 Blood - [...] eGFR 34 # Calc 47 eGFR Non-Afr. Stateless 30 # Calc 48 U/A DIP 11/30/2020 [facility] Color lt yellow QUAL Clarity cloudy QUAL Glucose-Ua Negative g/dL Negative Bilirubin,Urine Negative QUAL Negative Ketone Negative mg/dL Negative Specific [place] 1.025 # 1.000 - 1.030 Blood - Ua Moderate QUAL Abnormal Negative pH 5.0 # 5.0 - 8.0 Protein 30 mg/dL Abnormal Negative Urobilinogen 0.2 NA 0.2 - 1.0 Nitrite Positive QUAL Abnormal Negative Leukocyte Large QUAL Abnormal Negative Comment SAMPLE QNS NA Covid-19 10/15/2020 [place] [id number] [phone] Sars-CoV-2, Johanne Not Detected Not Detected 49 [...] No stool culture transport device received. TEST: [id number] GI Profile, Stool, PCR 29 This nucleic acid amplificat ion test was developed and its performance characteristics determined by [employer]. Nucleic acid amplification tests include RT-PCR and [...] developed and its performance characteristics determined by [employer]. Nucleic acid amplification tests include RT-PCR and [...] HCT IS 5% LESS SOURCE FOR DATA: [employer] 1800 OPERATION MANUAL( AUTOMATED BLOOD COUNTS AND [...] HCT IS 5% LESS SOURCE FOR DATA: [employer] 1800 OPERATION MANUAL( AUTOMATED BLOOD COUNTS AND [...] developed and its performance characteristics determined by [employer]. Nucleic acid amplification tests include RT-PCR and [...] assay. Procedures Date Code Description Status 04/05/2021 32960 Office/Outpatient Established Mo d MDM 30-39 Min Completed 01/02/2021 25406 Office/Outpatient Established Mo d MDM 30-39 Min Completed 11/30/2020 15528 Office/Outpatient Established Mo d MDM 30-39 Min Completed Medical Devices Description No Information Available Encounters Type Date Location Provider Dx Diagnosis Office Visit 04/05/2021 10:30a [place] [facility] Eber Gonzáles D.O ., FAAFP R19.7 Diarrhea, unspecified D64.9 Anemia, unspecified N18.30 Chronic kidney disease, stag e 3 unspecified Office Visit 01/02/2021 1:45p [place] [facility] Eber Gonzáles D.O ., FAAFP N18.30 Chronic kidney disease, stage 3 unspecif ied D64.9 Anemia, unspecified K21.9 Gastro-esophageal reflux dis ease without esophagitis Office Visit 11/30/2020 1:30p [place] [facility] Eber Gonzáles D.Chandan ., FAAFP D64.9 [...] am - Eber Gonzáles D.O., [facility] at [facility] Functional Status Description No Information Available Mental Status Description No Information Available Referrals Description No Information Available
--- OUTSIDE RECORDS SUMMARY | 2021-04-29 12:38 | CCD | Continuity of Care Document ---
Author Author David GONZÁLES D.O. Organization Unknown Address [address] [place] [address] Phone [phone] Care Team Providers Care Network Liaison Name Role Phone Eber Gonzáles D.O. AUTM [phone] Problems Active Problems Provider Date Malignant tumor [...] please call pt 30tabs Emmanuel Gonzáles D.O., [facility] 04/04/2021 Ondansetron HCL 4mg Tablets take one tablet by mouth every 8 hours as needed for nausea 30tabs Eber Gonzáles D.O., [facility] 11/29/[address] 1 by mouth every day 90tabs Eber Gonzáles D.O., [facility] Tramadol HCL 50mg Tablets 1 tab by mouth by mouth three times a day 90tabs Eber Gonzáles D.O. , [facility] 01/23/2020 Blood Glucose Test Strips use once a day and as needed (dx: e11.9) 100units E11.9 Eber Gonzáles D.O., [facility] 06/23/2017 Hydroxyzine HCL 25mg Tablets 1 by mouth every at bedtime Unknown History Medications Keflex 500mg Capsules 1 tab by mouth three times a day for 10 days for uti please call pt 30caps Eber Gonzáles D.O., [facility] 01/02/2021 - 04/05/2021 Prednisone 5mg Tablets Take One Tablet By Mouth Every Day 15tabs Eber Gonzáles D.O., [facility] - 04/05/2021 Prednisone 20mg Tablets 1 tab by mouth daily for 7 days with food 7tabs Eber Gonzáles D.O. , [facility] 12/26/2020 - 12/27/2020 Levofloxacin 250mg Tablets 1 by mouth every day please call pt 7tabs Eber Gonzáles D.O., [facility] 11/30/2020 - 12/07/2020 Medications Administered in Office Medication SIG Qnty Indications Ordering Provider Date Injection (SC)/(Im) Injection Eber Gonzáles D.O., [facility] 11/23/2019 Immunizations CPT Code Status Date Vaccine Lot # [id number] Given 11/23/2019 Tdap Tetanus,Dip htheria Toxoids/Acellular Pertussis 7Yrs Or Older [id number] Refused 03/26/2021 Influenza Virus Vaccine, Quadrivalent, Slit Virus, Im Use 3Y & Up 93598 Refused 03/02/2019 Influenza Virus Vaccine, Quadrivalent, Slit Virus, Im Use 3Y & Up 39890 Refused 02/17/2018 Pneumococcal Immunization 31691 Refused 02/17/2018 Influenza Virus Vaccine, Quadrivalent, Slit Virus, Im Use 3Y & Up 54990 Refused 05/13/2017 Influenza Virus Vaccine, Quadrivalent, Slit Virus, Im Use 3Y & Up 19896 Refused 04/24/2015 Influenza Vaccin e (Fluzone) 3Yrs Of Age Or Older Medicare Plans 97076 Refused 04/18/2013 Influenza Virus Vac. Split Virus Individuals 3 Years And Above 25088 Refused 04/13/2012 Pneumococcal Immunization 74150 Refused 04/13/2012 Influenza Virus Vac. Split Virus Individuals 3 Years And Above Vital Signs Date Vital Result Comment 04/05/2021 10:37am BP Systolic 118 mmHg BP Diastolic 78 mmHg Body Temperature 97.3 F Heart Rate 74 /min Respiratory Rate 18 /min Height 62 inches 5'2" Weight 135.00 lb [place] Body Weight 118 lb BMI (Body Mass Index) 24.7 kg/m2 O2 % BldC Oximetry 99 % (AT Rest), (Room Air ) 01/02/2021 2:02pm BP Systolic 116 mmHg BP Diastolic 74 mmHg Body Temperature 97.9 F Heart Rate 76 /min Respiratory Rate 16 /min Height 62 inches 5'2" Weight 136.00 lb [place] Body Weight 118 lb BMI (Body Mass Index) 24.9 kg/m2 O2 % BldC Oximetry 96 % Results Test Acquired Date Facility Test Result H/L Range Note Basic Metabolic Panel 04/04/2021 [place] [id number] [phone] Basic Metabolic Pane (SEE NOTE) 1, 2 [...] TNP 12 Enterotoxigenic E coli TNP 13 Ixcdz-wqzug-ikheplykm E coli TNP 14 E coli O157 [...] Enterotoxigenic E coli Not Detected Not Detected Xatfu-hktoi-uchqxruam E coli Not Detected Not Detecte d [...] Sapovirus Not Detected Not Detected Covid-19 03/25/2021 [place] [address] [phone] Sars-CoV-2, Johanne Not Detected Not Detected 29 Sars-CoV-2, Johanne 2 Day Tat Performed CBC W/Automated Diff 02/13/2021 [place] [id number] [phone] CBC W/Automated Diff (SEE NOTE) 30, 31 [...] Lymph 18.7 % Low 25.0 - 40.0 [place] 10.7 % High 3.0 - 8.0 Eos 6.3 % 0.0 - 7.0 Baso 0.8 % 0.0 - 2.0 %Ig 0.6 % High 0.0 - 0.0 %NRBC 0.0 % 0.0 - 0.0 #Neut 4.11 10^3/uL 2.00 - 6.90 #Lymph 1.22 10^3/uL 0.60 - 3.40 #[place] 0.70 10^3/uL 0.00 - 0.90 #Eos 0.41 10^3/uL 0.00 - 0.70 #Baso 0.05 10^3/uL 0.00 - 0.20 #Ig 0.04 10^3/uL 0.00 - 0.10 #NRBC 0.00 10^3/uL 0.00 - 0.00 Manual Diff NOT INDICATED RBC Morph NOT INDICATED Covid-19 01/14/2021 [place] [id number] [phone] Sars-CoV-2, Johanne Not Detected Not Detected 32 Sars-CoV-2, Johanne 2 Day Tat Performed CBC 01/02/2021 [facility] WBC 5.9 10E3/uL 4.1 - 10.9 33 RBC 3.50 10E6/uL Low 4.20 - 6.30 [...] MPV 8.5 fL Low 9.0 - 13.0 U/A DIP 01/02/2021 [facility] Color lt yellow QUAL Clarity cloudy QUAL Glucose-Ua Negative g/dL Negative Bilirubin,Urine Negative QUAL Negative Ketone Negative mg/dL Negative Specific [place] 1.020 # 1.000 - 1.030 Blood - Ua Large QUAL Abnormal Negative pH 5.0 # 5.0 - 8.0 Protein 30 mg/dL Abnormal Negative Urobilinogen 0.2 NA 0.2 - 1.0 Nitrite Positive QUAL Abnormal Negative Leukocyte Moderate QUAL Abnormal Negative Comment ucs sent out NA High Laboratory test finding 01/02/2021 [facility] Hemoglobin A1c 5.8 % 4.40 - 6.10 CMP 01/02/2021 [facility] Glu 143 mg/dL High [...] Gap 16 mmol/L eGFR 27 # Calc 34 eGFR Non-Afr. [place] 24 # Calc 35 Urine Culture, Routine 01/02/2021 [facility] [place] Urine Culture, Routine Final report Abnormal 36, 37 Result 1 Enterococcus sangeetha <SEE NOTE> Abnormal 38 Result 2 See Comment: Abnormal 39 Antimicrobial Susceptibility See Comment: 40 Urine Culture, Routine 11/30/2020 [facility] [place] Urine [...] eGFR 34 # Calc 47 eGFR Non-Afr. [place] 30 # Calc 48 U/A DIP 11/30/2020 [facility] Color lt yellow QUAL Clarity cloudy QUAL Glucose-Ua Negative g/dL Negative Bilirubin,Urine Negative QUAL Negative Ketone Negative mg/dL Negative Specific [place] 1.025 # 1.000 - 1.030 Blood - Ua Moderate QUAL Abnormal Negative pH 5.0 # 5.0 - 8.0 Protein 30 mg/dL Abnormal Negative Urobilinogen 0.2 NA 0.2 - 1.0 Nitrite Positive QUAL Abnormal Negative Leukocyte Large QUAL Abnormal Negative Comment SAMPLE QNS NA Covid-19 10/15/2020 [place], [place] [id number] [phone] Sars-CoV-2, Johanne Not Detected Not Detected 49 [...] No stool culture transport device received. TEST: [id number] GI Profile, Stool, PCR 29 This nucleic acid amplificat ion test was developed and its performance characteristics determined by [employer]. Nucleic acid amplification tests include RT-PCR and [...] developed and its performance characteristics determined by [employer]. Nucleic acid amplification tests include RT-PCR and [...] (not detected) result in this assay. 33 NORMAL RANGES Age WBC RBC HGB HCT [...] HCT IS 5% LESS SOURCE FOR DATA: [employer] 1800 OPERATION MANUAL( AUTOMATED BLOOD COUNTS AND [...] Normal 80 and above >32 mL/min Normal 34 CKD-EPI 35 CKD-EPI 36 SRC:UA VOIDED 37 Source of Specimen: UA VOIDE D 38 Enterococcus faecalis Source of Specimen: UA VOIDED 50,000-100,000 colony forming units per mL 39 Source of Specimen: UA VOIDE D Nonfermenting gram negative bacilli Greater than 100,000 colony forming units per mL 40 Source of Specimen: UA VOIDE D S [...] S Tobramycin S Trimethoprim/Sulfa S Vancomycin S 41 SRC:CATHETER 42 Source of Specimen: CATHETER [...] HCT IS 5% LESS SOURCE FOR DATA: [employer] 1800 OPERATION MANUAL( AUTOMATED BLOOD COUNTS AND [...] developed and its performance characteristics determined by [employer]. Nucleic acid amplification tests include RT-PCR and [...] this assay. Procedures Date Code Description Status 01/02/2021 01579 Office/Outpatient Established Mo d MDM 30-39 Min Completed 11/30/2020 87021 Office/Outpatient Established Mo d MDM 30-39 Min Completed Medical Devices Description No Information Available Encounters Type Date Location Provider Dx Diagnosis Office Visit 01/02/2021 1:45p [place] [facility] Gregorio Faith, FAAFP N18.30 Chronic kidney disease, stage 3 unspecif ied D64.9 Anemia, unspecified K21.9 Gastro-esophageal reflux dis ease without esophagitis Office Visit 11/30/2020 1:30p [place] [facility] Gregorio Faith, FAAFP D64.9 Anemia, unspecified N18.30 Chronic kidney disease, stag e 3 unspecified R10.32 Left lower quadrant pain Assessments Date Code Description Provider 01/02/2021 N18.30 Chronic kidney disease, stage 3 unspecified Eber Gonzáles D.O., FAAFP 01/02/2021 D64.9 Anemia, unspecified Eber bush D.O., FAAFP 01/02/2021 K21.9 Gastro-esophageal reflux disease without esophagitis Eber Gonzáles D.O., FAAFP 11/30/2020 D64.9 Anemia, unspecified Eber bush D.O., [facility] 11/30/2020 N18.30 Chronic kidney disease, stage 3 unspecified Eber Gonzáles D.O., [facility] 11/30/2020 R10.32 Left lower quadrant pain Eber Gonzáles D.O., [facility] Plan of Treatment Future Appointment(s):* 04/10/2021 2:00 pm - Eber Gonzáles D.O., [facility] at [facility] Functional Status Description No Information Available Mental Status Description No Information Available Referrals Description No Information Available
--- OUTSIDE RECORDS SUMMARY | 2021-04-29 12:39 | CCD | Continuity of Care Document ---
Author Author David GONZÁLES D.O. Organization Unknown Address [address] [place] [address] Phone [phone] Care Team Providers Care Pediatric Physician Name Role Phone Eber Gonzáles D.O. AUTM [phone] Problems Active Problems Provider Date Malignant tumor [...] SIG Qnty Indications Ordering Provide r Date Keflex 500mg Capsules 1 tab by mouth three times a day for 10 days for uti please call pt 30caps Eber Gonzáles D.O., JACOB 01/02/2021 Prednisone 5mg Tablets Take One Tablet By Mouth Every Day 15tabs Eber Gonzáles D.O., JACOB Ondansetron HCL 4mg Tablets take one tablet by mouth every 8 hours as needed for nausea 30tabs Eber Gonzáles D.O., [facility] 11/29/[address] 1 by mouth every day 90tabs Eber Gonzáles D.O., [facility] Tramadol HCL 50mg Tablets 1 tab by mouth by mouth three times a day 90tabs Eber Gonzáles D.O. , [facility] 01/23/2020 Blood Glucose Test Strips use once a day and as needed (dx: e11.9) 100units E11.9 Eber Gonzáles D.O., [facility] 06/23/2017 Hydroxyzine HCL 25mg Tablets 1 by mouth every at bedtime Unknown History Medications Prednisone 20mg Tablets 1 tab by mouth daily for 7 days with food 7tabs Eber Gonzáles D.O. , [facility] 12/26/2020 - 12/27/2020 Levofloxacin 250mg Tablets 1 by mouth every day please call pt 7tabs Eber Gonzáles D.O., [facility] 11/30/2020 - 12/07/2020 Medications Administered in Office Medication SIG Qnty Indications Ordering Provider Date Injection (SC)/(Im) Injection Eber Gonzáles D.O., [facility] 11/23/2019 Immunizations CPT Code Status Date Vaccine Lot # [id number] Given 11/23/2019 Tdap Tetanus,Dip htheria Toxoids/Acellular Pertussis 7Yrs Or Older [id number] Refused 03/26/2021 Influenza Virus Vaccine, Quadrivalent, Slit Virus, Im Use 3Y & Up [id number] Refused 03/02/2019 Influenza Virus Vaccine, Quadrivalent, Slit Virus, Im Use 3Y & Up 05220 Refused 02/17/2018 Pneumococcal Immunization 66940 Refused 02/17/2018 Influenza Virus Vaccine, Quadrivalent, Slit Virus, Im Use 3Y & Up 93937 Refused 05/13/2017 Influenza Virus Vaccine, Quadrivalent, Slit Virus, Im Use 3Y & Up 38921 Refused 04/24/2015 Influenza Vaccin e (Fluzone) 3Yrs Of Age Or Older Medicare Plans 80080 Refused 04/18/2013 Influenza Virus Vac. Split Virus Individuals 3 Years And Above 28084 Refused 04/13/2012 Pneumococcal Immunization 47632 Refused 04/13/2012 Influenza Virus Vac. Split Virus Individuals 3 Years And Above Vital Signs Date Vital Result Comment 01/02/2021 2:02pm BP Systolic 116 mmHg BP Diastolic 74 mmHg Body Temperature 97.9 F Heart Rate 76 /min Respiratory Rate 16 /min Height 62 inches 5'2" Weight 136.00 lb [place]ana Body Weight 118 lb BMI (Body Mass Index) 24.9 kg/m2 O2 % BldC Oximetry 96 % 11/30/2020 1:24pm BP Systolic 110 mmHg BP Diastolic 52 mmHg Body Temperature 97.1 F Heart Rate 90 /min Respiratory Rate 18 /min Height 62 inches 5'2" Weight 136.00 lb [place]ana Body Weight 118 lb BMI (Body Mass Index) 24.9 kg/m2 O2 % BldC Oximetry 96 % Results Test Acquired Date Facility Test Result H/L Range Note Ova + Parasite Exam 03/29/2021 [facility] Ova + Parasite Exam Final report 1 Result 1 See Comment: 2 Laboratory test finding 03/29/2021 [facility] Request Problem TNP 3 GI Profile, Stool, PCR 03/29/2021 [facility] Campylobacter TNP 4 C difficile toxin A/B TNP 5 Plesiomonas shigelloides TNP 6 Salmonella TNP 7 Vibrio TNP 8 Vibrio cholerae TNP 9 Yersinia enterocolitica TNP 10 Enteroaggregative E coli TNP 11 Enteropathogenic E coli TNP 12 Enterotoxigenic E coli TNP 13 Holay-gzfxw-dyrzfqlgb E coli TNP 14 E coli O157 TNP 15 Shigella/Enteroinvasive E coli TNP 16 Cryptosporidium TNP 17 Cyclospora cayetanensis TNP 18 Entamoeba histolytica TNP 19 Giardia lamblia TNP 20 Adenovirus F 40/41 TNP 21 Astrovirus TNP 22 Norovirus GI/Gii TNP 23 Rotavirus A TNP 24 Sapovirus TNP 25 GI Profile, Stool, PCR 03/27/2021 [facility] [...] Enterotoxigenic E coli Not Detected Not Detected Hdrre-ittro-mgmjcmvlb E coli Not Detected Not Detecte d E coli O157 Not applicable Not Detected Shigella/Enteroinvasive E coli Not Detected Not Detec sis Cryptosporidium Not Detected Not Detected Cyclospora cayetanensis Not Detected Not Detected Entamoeba histolytica Not Detected Not Detected Giardia lamblia Not Detected Not Detected Adenovirus F 40/ Not Detected Not Detected Astrovirus Not Detected Not Detected Norovirus GI/Gii Not Detected Not Detected Rotavirus A Not Detected Not Detected Sapovirus Not Detected Not Detected Covid-19 03/25/2021 [place] [address] [phone] Sars-CoV-2, Johanne Not Detected Not Detected 26 Sars-CoV-2, Johanne 2 Day Tat Performed CBC W/Automated Diff 02/13/2021 [place] [address] [phone] CBC W/Automated Diff (SEE NOTE) 27, 28 WBC 6.5 10^3/uL 4.2 - 11.0 RBC [...] Lymph 18.7 % Low 25.0 - 40.0 [place] 10.7 % High 3.0 - 8.0 Eos 6.3 % 0.0 - 7.0 Baso 0.8 % 0.0 - 2.0 %Ig 0.6 % High 0.0 - 0.0 %NRBC 0.0 % 0.0 - 0.0 #Neut 4.11 10^3/uL 2.00 - 6.90 #Lymph 1.22 10^3/uL 0.60 - 3.40 #[place] 0.70 10^3/uL 0.00 - 0.90 #Eos 0.41 10^3/uL 0.00 - 0.70 #Baso 0.05 10^3/uL 0.00 - 0.20 #Ig 0.04 10^3/uL 0.00 - 0.10 #NRBC 0.00 10^3/uL 0.00 - 0.00 Manual Diff NOT INDICATED RBC Morph NOT INDICATED Covid-19 01/14/2021 [place] [address] [phone] Sars-CoV-2, Johanne Not Detected Not Detected 29 Sars-CoV-2, Johanne 2 Day Tat Performed CBC 01/02/2021 [facility] WBC 5.9 10E3/uL 4.1 - 10.9 30 RBC 3.50 10E6/uL Low 4.20 - 6.30 [...] QUAL Negative Ketone Negative mg/dL Negative Specific [place] 1.020 # 1.000 - 1.030 Blood - [...] Gap 16 mmol/L eGFR 27 # Calc 31 eGFR Non-Afr. Kazakh 24 # Calc 32 Urine Culture, Routine 01/02/2021 [facility] Urine Culture, Routine Final report Abnormal 33, 34 Result 1 Enterococcus sangeetha <SEE NOTE> Abnormal 35 Result 2 See Comment: Abnormal 36 Antimicrobial Susceptibility See Comment: 37 Urine Culture, Routine 11/30/2020 [facility] Urine Culture, Routine Final report Abnormal 38, 39 Result 1 See Comment: Abnormal 40 Result 2 See Comment: Abnormal 41 Antimicrobial Susceptibility See Comment: 42 CBC 11/30/2020 [facility] WBC 4.7 10E3/uL 4.1 - 10.9 43 RBC 3.42 10E6/uL Low 4.20 - 6.30 [...] Gap 14 mmol/L eGFR 34 # Calc 44 eGFR Non-Afr. Kazakh 30 # Calc 45 U/A DIP 11/30/2020 [facility] Color lt yellow QUAL Clarity cloudy QUAL Glucose-Ua Negative g/dL Negative Bilirubin,Urine Negative QUAL Negative Ketone Negative mg/dL Negative Specific [place] 1.025 # 1.000 - 1.030 Blood - Ua Moderate QUAL Abnormal Negative pH 5.0 # 5.0 - 8.0 Protein 30 mg/dL Abnormal Negative Urobilinogen 0.2 NA 0.2 - 1.0 Nitrite Positive QUAL Abnormal Negative Leukocyte Large QUAL Abnormal Negative Comment SAMPLE QNS NA Covid-19 10/15/2020 [place], [place] [id number] [phone] Sars-CoV-2, Johanne Not Detected Not Detected 46 Sars-CoV-2, Johanne 2 Day Tat Performed 1 These results were obtained using wet preparation(s) and trichrome stained smear. This test does not include testing for Cryptosporidium parvum, Cyclospora, or Microsporidia. 2 No ova, cysts, or parasites seen. One negative specimen does not rule out the possibility of a parasitic infection. 3 Test not performed. No stool culture transport device received. TEST: 138102 GI Profile, Stool, PCR 4 Test not performed. No stool culture [...] not performed 25 Test not performed 26 This nucleic acid amplificat ion test was developed and its performance characteristics determined by [employer]. Nucleic acid amplification tests include RT-PCR and [...] negative (not detected) result in this assay. 27 .~.~R31.0 28 COMPLETE BLOOD COUNT 29 This nucleic acid amplificat ion test was developed and its performance characteristics determined by [employer]. Nucleic acid amplification tests include RT-PCR and [...] (not detected) result in this assay. 30 NORMAL RANGES Age WBC RBC HGB HCT [...] HCT IS 5% LESS SOURCE FOR DATA: CORAL DYN 1800 OPERATION MANUAL( AUTOMATED BLOOD COUNTS [...] Normal 80 and above >32 mL/min Normal 31 CKD-EPI 32 CKD-EPI 33 SRC:UA VOIDED 34 Source of Specimen: [...] Tobramycin S Trimethoprim/Sulfa S Vancomycin S 38 SRC:CATHETER 39 Source of Specimen: CATHETER 40 Source of Specimen: CATHETER Escherichia coli, identified by an automated biochemical system. Greater than 100,000 colony forming units per mL 41 Source of Specimen: CATHETER Pseudomonas aeruginosa 10,000-25,000 colony forming units per m L 42 Source of Specimen: CATHETER S = Susceptible; [...] Ticarcillin S Tobramycin S S Trimethoprim/Sulfa S 43 NORMAL RANGES Age WBC RBC HGB HCT [...] HCT IS 5% LESS SOURCE FOR DATA: [employer]orit 1800 OPERATION MANUAL( AUTOMATED BLOOD COUNTS AND [...] Normal 80 and above >32 mL/min Normal 44 CKD-EPI 45 CKD-EPI 46 This nucleic acid amplificat ion test was developed and its performance characteristics determined by [employer]. Nucleic acid amplification tests include RT-PCR and [...] assay. Procedures Date Code Description Status 01/02/2021 72774 Office/Outpatient Established Mo d MDM 30-39 Min Completed 11/30/2020 74243 Office/Outpatient Established Mo d MDM 30-39 Min Completed Medical Devices Description No Information Available Encounters Type Date Location Provider Dx Diagnosis Office Visit 01/02/2021 1:45p [place] [facility] Gregorio Faith, FAAFP N18.30 Chronic kidney disease, stage 3 unspecif ied D64.9 Anemia, unspecified K21.9 Gastro-esophageal reflux dis ease without esophagitis Office Visit 11/30/2020 1:30p [place] [facility] Gregorio Faith, FAAFP D64.9 Anemia, unspecified N18.30 Chronic kidney disease, stag e 3 unspecified R10.32 Left lower quadrant pain Assessments Date Code Description Provider 01/02/2021 N18.30 Chronic kidney disease, stage 3 unspecified Eber Gonzáles D.O., FAAFP 01/02/2021 D64.9 Anemia, unspecified Eber bush D.O., FAAFP 01/02/2021 K21.9 Gastro-esophageal reflux disease without esophagitis Eber Gonzáles D.O., [facility] 11/30/2020 D64.9 Anemia, unspecified Eber bush D.O., [facility] 11/30/2020 N18.30 Chronic kidney disease, stage 3 unspecified Eber Gonzáles D.O., [facility] 11/30/2020 R10.32 Left lower quadrant pain Eber Gonzáles D.O., FAAFP Plan of Treatment Future Appointment(s):* 04/10/2021 2:00 pm - Eber Gonzáles D.O., FAAFP at [facility] Functional Status Description No Information Available Mental Status Description No Information Available Referrals Description No Information Available
--- OUTSIDE RECORDS SUMMARY | 2021-04-29 12:39 | CCD | Continuity of Care Document ---
Author Author Urology Resource Schedule, Armand thompsonnico Young Organization Unknown Address [address] [place] [address] Phone [phone] Care Team Providers Care Engraving Plate Maker Name Role Phone Eber Conway DO AUTM Unavailable Problems Active Problems Provider Date Type 2 diabetes mellitus EDITH Santos Onset: 0 07/05/2019 Malignant tumor of prostate EDITH Santos Onset : 07/05/2019 Hyperlipidemia EDITH Santos Onset: 2019 Gastroesophageal reflux disease EDITH Santos O nset: 07/05/2019 Essential hypertension EDITH Santos Onset: Hydronephrosis EDITH Santos Onset: 2020 Hydronephrosis with ureteropelvic junction obstruction EDITH Santos Onset: 10/03/2020 Malignant tumor of urinary bladder Fidel Marshall M.D. Onset : 03/27/2020 Encounter for fitting and adjustment of urinary device EDITH Santos Onset: 02/29/2020 Urinary incontinence EDITH Santos Onset: 02/28 Overactive bladder EDITH Santos Onset: 2019 Epididymo-orchitis EDITH Santos Onset: 2019 Social History Type Date Description Comments Sex Unknown Tobacco Use Start: Unknown Never Smoked Cigarettes Tobacco Use Start: Unknown Never Smoked Cigars Smoking Status Reviewed: 12/25/20 Never Smoked Cigars Tobacco Use Start: Unknown Never Smoked A Pipe Tobacco Use Start: Unknown Never Used Smokeless Tobacco ETOH Use Never used alcohol Tobacco Use Start: Unknown Patient has never smoked Allergies, Adverse Reactions, Alerts Active Allergies Criticality Reaction | Severity Comments Date NKDA Unable to assess criticality 07/05/2019 NKFA Unable to assess criticality 07/05/2019 NKEA Unable to assess criticality 07/05/2019 Medications Active Medications SIG Qnty Indications Ordering Provide r Date Cipro 500mg Tablets 1 tab by mouth twice a day as directed 14tabs R31.0 Fidel Marshall M.D. 02/13/2021 Tramadol HCL 50mg Tablets Unknown Hydroxyzine HCL 25mg Tablets Take One Tablet By Mouth AT Bedtime Unknown Famotidine 40mg Tablets 1 by mouth every day Unknown Pantoprazole Sodium 20mg Tablets D R 1 by mouth every day Unknown Imodium A-D 2mg Capsules Unknown Immunizations Description No Information Available Vital Signs Date Vital Result Comment 03/19/2021 2:06pm BP Systolic 116 mmHg BP Diastolic 70 mmHg Heart Rate 81 /min Body Temperature 97.1 F O2 % BldC Oximetry 99 % 02/20/2021 10:15am BP Systolic 128 mmHg BP Diastolic 81 mmHg Results Description No Information Available Procedures Date Code Description Status 03/19/2021 87282 Office/Outpatient Established Lo w MDM 20-29 Min Completed 02/20/2021 78524 Office/Outpatient Established Lo w MDM 20-29 Min Completed 02/13/2021 80673 Office/Outpatient Established Mo d MDM 30-39 Min Completed 12/25/2020 07969 Office/Outpatient Established Mo d MDM 30-39 Min Completed 10/03/2020 77475 Office/Outpatient Established Mo d MDM 30-39 Min Completed Medical Devices Description No Information Available Encounters Type Date Location Provider Dx Diagnosis Office Visit 03/19/2021 2:00p [facility] EDITH Quach N13.30 Unspecified hydronephrosis Assessments Date Code Description Provider 03/19/2021 N13.30 Unspecified hydronephrosis EDITH Amaral 02/20/2021 N13.30 Unspecified hydronephrosis EDITH Amaral 02/13/2021 N45.3 Epididymo-orchitis Fidel Marshall M.D. 02/13/2021 R31.0 Gross hematuria Najma Stack 02/13/2021 C67.9 Malignant neoplasm of bladder, u nspecified Fidel Marshall M.D. 02/13/2021 N13.30 Unspecified hydronephrosis Fidel Marshall M.D. 12/25/2020 N13.0 Hydronephrosis with ureteropelvi c junction obstruction EDITH Santos 12/25/2020 C67.9 Malignant neoplasm of bladder, u nspecified EDITH Santos 12/25/2020 C61 Malignant neoplasm of prostate N EDITH Cruz 10/03/2020 N13.0 Hydronephrosis with ureteropelvi c junction obstruction EDITH Santos 10/03/2020 C67.9 Malignant neoplasm of bladder, u nspecified EDITH Santos 10/03/2020 C61 Malignant neoplasm of prostate N EDITH Cruz 10/03/2020 N32.81 Overactive bladder EDITH Larry Plan of Treatment Future Appointment(s):* 03/25/2021 9:20 am - [facility] at [facility] 03/19/2021 - EDITH Santos* N13.30 Unspecified hydronephrosis* New Labs:* Covid-19, Scheduled: 03/25/21 * Comments:* Patient with history of bladder cancer and hydronephrosis with bilateral nephrostomy tubes in place presents to the clinic today with complaints of intermittent leakage at the connection sites. no leakage noted while in the clinic. Dr Marshall removed the stop cocks on both nephrostomy tubes and directly connected the nephrostomy tube to the drainage bags to see if this would help. We will schedule bilateral nephrostomy tube exchange at the next available opening.Patient voiced understanding and agreement with plan of care. * Follow up:* PRN Functional Status Description No Information Available Mental Status Description No Information Available Referrals Description No Information Available"
--- OUTSIDE RECORDS SUMMARY | 2021-04-29 12:39 | CCD | Continuity of Care Document ---
Author Author Urology Resource Schedule, Armand thompsonnico Young Organization Unknown Address [address] [place] [address] Phone [phone] Care Team Providers Care Roofing Contractor Name Role Phone Eber Conway DO AUTM [...] Available Procedures Date Code Description Status 03/19/2021 19890 Office/Outpatient Established Lo w MDM 20-29 Min Completed 02/20/2021 26978 Office/Outpatient Established Lo w MDM 20-29 Min Completed 02/13/2021 47104 Office/Outpatient Established Mo d MDM 30-39 Min Completed 12/25/2020 99864 Office/Outpatient Established Mo d MDM 30-39 Min Completed 10/03/2020 38419 Office/Outpatient Established Mo d MDM 30-39 Min Completed Medical Devices Description No Information Available Encounters Type Date Location Provider Dx Diagnosis Office Visit 03/19/2021 2:00p [facility] EDITH Quach N13.30 Unspecified [...] 9:20 am - [facility] Schedule at [facility] 03/19/2021 - EDITH Santos* N13.30 Unspecified hydronephrosis* [...]
--- OUTSIDE RECORDS SUMMARY | 2021-04-29 12:39 | CCD | Continuity of Care Document ---
Author Author David CASTRO PA Organization Unknown Address [facility] [place] [address] Phone [phone] Care Team Providers Care Aviation Electrician Name Role Phone Eber Conway DO AUTM Unavailable Problems Active Problems Provider Date Type 2 diabetes mellitus EDITH Santos Onset: 0 07/05/2019 Malignant tumor of prostate EDITH Santos Onset : 07/05/2019 Hyperlipidemia EDITH Santos Onset: 2019 Gastroesophageal reflux disease EDITH Santos O nset: 07/05/2019 Essential hypertension EDITH Santos Onset: Hydronephrosis with ureteropelvic junction obstruction EDITH Santos [...] Tablets 1 by mouth every day Unknown Immunizations Description No Information Available Vital Signs Date Vital Result Comment 02/20/2021 10:15am BP Systolic 128 mmHg BP Diastolic 81 mmHg 12/25/2020 1:46pm BP Systolic 118 mmHg BP Diastolic 66 mmHg Heart Rate 80 /min Body Temperature 96.9 F Respiratory Rate 20 /min O2 % BldC Oximetry 94 % Weight 136.25 lb Weight 61.803 kg Results Description No Information Available Procedures Date Code Description Status 02/13/2021 19732 Office/Outpatient Established Mo d MDM 30-39 Min Completed 12/25/2020 72836 Office/Outpatient Established Mo d MDM 30-39 Min Completed 10/03/2020 90667 Office/Outpatient Established Mo d MDM 30-39 Min Completed Medical Devices Description No Information Available Encounters Description No Information Available Assessments Date Code Description Provider 02/13/2021 N45.3 Epididymo-orchitis Fidel Marshall M.D. 02/13/2021 [...] EDITH Larry Plan of Treatment Future Appointment(s):* 03/19/2021 2:00 pm - Urology Resource Schedule at [facility] Functional Status Description No Information Available Mental Status Description No Information Available Referrals Description No Information Available"
--- OUTSIDE RECORDS SUMMARY | 2021-04-29 12:39 | CCD | Continuity of Care Document ---
Author Author Urology Resource Schedule, Armand thompsonnico Young Organization Unknown Address [address] [place] [address] Phone [phone] Care Team Providers Care Automotive Center Manager Name Role Phone Eber Conway DO AUTM [...] Available Procedures Date Code Description Status 03/19/2021 06703 Office/Outpatient Established Lo w MDM 20-29 Min Completed 02/20/2021 77411 Office/Outpatient Established Lo w MDM 20-29 Min Completed 02/13/2021 27812 Office/Outpatient Established Mo d MDM 30-39 Min Completed 12/25/2020 41275 Office/Outpatient Established Mo d MDM 30-39 Min Completed 10/03/2020 89332 Office/Outpatient Established Mo d MDM 30-39 Min Completed Medical Devices Description No Information Available Encounters Type Date Location Provider Dx Diagnosis Office Visit 03/19/2021 2:00p [facility] EDITH Quach N13.30 Unspecified [...] 9:20 am - [facility] Schedule at [facility] 03/19/2021 - EDITH Santos* N13.30 Unspecified hydronephrosis* [...]
--- OUTSIDE RECORDS SUMMARY | 2021-04-29 12:39 | CCD | Continuity of Care Document ---
Author Author David CASTRO PA Organization Unknown Address [facility] [place] [address] Phone [phone] Care Team Providers Care Die Turner Name Role Phone Eber Conway DO AUTM [...] Available Procedures Date Code Description Status 03/19/2021 01430 Office/Outpatient Established Lo w MDM 20-29 Min Completed 02/20/2021 78899 Office/Outpatient Established Lo w MDM 20-29 Min Completed 02/13/2021 15313 Office/Outpatient Established Mo d MDM 30-39 Min Completed 12/25/2020 17346 Office/Outpatient Established Mo d MDM 30-39 Min Completed 10/03/2020 34084 Office/Outpatient Established Mo d MDM 30-39 Min Completed Medical Devices Description No Information Available Encounters Type Date Location Provider Dx Diagnosis Office Visit 03/19/2021 2:00p [facility] EDITH Quach N13.30 Unspecified [...] 9:20 am - [facility] Schedule at [facility] 03/19/2021 - EDITH Santos* N13.30 [...]
--- OUTSIDE RECORDS SUMMARY | 2021-04-29 12:39 | CCD ---
Continuity of Care Document (CCD) Created on: 04/05/2021 RonnieprudencioDavid christianson External Reference #: [id number] : 1935 Sex: Male Author Author David GONZÁLES D.O. Organization Unknown Address [address] [place] [address] Phone [phone] Care Team Providers Care Resizer Operator Name Role Phone Eber Gonzáles D.O. AUTM [phone] Problems Active Problems Provider Date Malignant tumor [...] mouth every day 90tabs Eber Gonzáles D.O., [facility] Tramadol HCL 50mg Tablets 1 tab by mouth by mouth three times a day 90tabs Eber Gonzáles D.O. , [facility] 01/23/2020 Blood Glucose Test Strips use once a day and as needed (dx: e11.9) 100units E11.9 Eber Gonzáles D.O., [facility] 06/23/2017 Hydroxyzine HCL 25mg Tablets 1 by mouth every at bedtime Unknown History Medications Keflex 500mg Capsules 1 tab by mouth three times a day for 10 days for uti please call pt 30caps Eber Gonzáles D.O., [facility] 01/02/2021 - 04/05/2021 Prednisone 5mg Tablets Take One Tablet By Mouth Every Day 15tabs Eber Gonzáles D.O., [facility] - 04/05/2021 Prednisone 20mg Tablets 1 tab by mouth daily for 7 days with food 7tabs Eber Gonzáles D.O. , [facility] 12/26/2020 - 12/27/2020 Levofloxacin 250mg Tablets 1 by mouth every day please call pt 7tabs Eber Gonzáles D.O., [facility] 11/30/2020 - 12/07/2020 Medications Administered in Office Medication SIG Qnty Indications Ordering Provider Date Injection (SC)/(Im) Injection Eber Gonzáles D.O., [facility] 11/23/2019 Immunizations CPT Code Status Date Vaccine Lot # [id number] Given 11/23/2019 Tdap Tetanus,Dip htheria Toxoids/Acellular Pertussis 7Yrs Or Older [id number] Refused 03/26/2021 Influenza Virus Vaccine, Quadrivalent, Slit Virus, Im Use 3Y & Up 73415 Refused 03/02/2019 Influenza Virus Vaccine, Quadrivalent, Slit Virus, Im Use 3Y & Up 57537 Refused 02/17/2018 Pneumococcal Immunization 86070 Refused 02/17/2018 Influenza Virus Vaccine, Quadrivalent, Slit Virus, Im Use 3Y & Up 68662 Refused 05/13/2017 Influenza Virus Vaccine, Quadrivalent, Slit Virus, Im Use 3Y & Up 54568 Refused 04/24/2015 Influenza Vaccin e (Fluzone) 3Yrs Of Age Or Older Medicare Plans 13930 Refused 04/18/2013 Influenza Virus Vac. Split Virus Individuals 3 Years And Above 10412 Refused 04/13/2012 Pneumococcal Immunization 69678 Refused 04/13/2012 Influenza Virus Vac. Split Virus Individuals 3 Years And Above Vital Signs Date Vital Result Comment 04/05/2021 10:37am BP Systolic 118 mmHg BP Diastolic 78 mmHg Body Temperature 97.3 F Heart Rate 74 /min Respiratory Rate 18 /min Height 62 inches 5'2" Weight 135.00 lb [place] Body Weight 118 lb BMI (Body Mass Index) 24.7 kg/m2 O2 % BldC Oximetry 99 % (AT Rest), (Room Air ) 01/02/2021 2:02pm BP Systolic 116 mmHg BP Diastolic 74 mmHg Body Temperature 97.9 F Heart Rate 76 /min Respiratory Rate 16 /min Height 62 inches 5'2" Weight 136.00 lb [place] Body Weight 118 lb BMI (Body Mass Index) 24.9 kg/m2 O2 % BldC Oximetry 96 % Results Test Acquired Date Facility Test Result H/L Range Note Basic Metabolic Panel 04/04/2021 [place] [id number] [phone] Basic Metabolic Pane (SEE NOTE) 1, 2 [...] TNP 12 Enterotoxigenic E coli TNP 13 Kzmyt-dabzl-khdevhkjc E coli TNP 14 E coli O157 [...] Enterotoxigenic E coli Not Detected Not Detected Ukrjl-cfqnv-bnmdvavsf E coli Not Detected Not Detecte d [...] Sapovirus Not Detected Not Detected Covid-19 03/25/2021 [place] [address] [phone] Sars-CoV-2, Johanne Not Detected Not Detected 29 Sars-CoV-2, Johanne 2 Day Tat Performed CBC W/Automated Diff 02/13/2021 [place] [id number] [phone] CBC W/Automated Diff (SEE NOTE) 30, 31 [...] Lymph 18.7 % Low 25.0 - 40.0 [place] 10.7 % High 3.0 - 8.0 Eos 6.3 % 0.0 - 7.0 Baso 0.8 % 0.0 - 2.0 %Ig 0.6 % High 0.0 - 0.0 %NRBC 0.0 % 0.0 - 0.0 #Neut 4.11 10^3/uL 2.00 - 6.90 #Lymph 1.22 10^3/uL 0.60 - 3.40 #[place] 0.70 10^3/uL 0.00 - 0.90 #Eos 0.41 10^3/uL 0.00 - 0.70 #Baso 0.05 10^3/uL 0.00 - 0.20 #Ig 0.04 10^3/uL 0.00 - 0.10 #NRBC 0.00 10^3/uL 0.00 - 0.00 Manual Diff NOT INDICATED RBC Morph NOT INDICATED Covid-19 01/14/2021 [place] [id number] [phone] Sars-CoV-2, Johanne Not Detected Not Detected 32 [...] QUAL Negative Ketone Negative mg/dL Negative Specific [place] 1.020 # 1.000 - 1.030 Blood - [...] eGFR 27 # Calc 34 eGFR Non-Afr. Fijian 24 # Calc 35 Urine Culture, Routine [...] eGFR 34 # Calc 47 eGFR Non-Afr. [place]ijian 30 # Calc 48 U/A DIP 11/30/2020 FPA/Inhouse Color lt yellow QUAL Clarity cloudy QUAL Glucose-Ua Negative g/dL Negative Bilirubin,Urine Negative QUAL Negative Ketone Negative mg/dL Negative Specific [place] 1.025 # 1.000 - 1.030 Blood - Ua Moderate QUAL Abnormal Negative pH 5.0 # 5.0 - 8.0 Protein 30 mg/dL Abnormal Negative Urobilinogen 0.2 NA 0.2 - 1.0 Nitrite Positive QUAL Abnormal Negative Leukocyte Large QUAL Abnormal Negative Comment SAMPLE QNS NA Covid-19 10/15/2020 [place], [place] [id number] [phone] Sars-CoV-2, Johanne Not Detected Not Detected 49 [...] No stool culture transport device received. TEST: [id number] GI Profile, Stool, PCR 29 This nucleic acid amplificat ion test was developed and its performance characteristics determined by [employer]. Nucleic acid amplification tests include RT-PCR and [...] developed and its performance characteristics determined by [employer]. Nucleic acid amplification tests include RT-PCR and [...] HCT IS 5% LESS SOURCE FOR DATA: [employer] 1800 OPERATION MANUAL( AUTOMATED BLOOD COUNTS [...] HCT IS 5% LESS SOURCE FOR DATA: [employer] 1800 OPERATION MANUAL( AUTOMATED BLOOD COUNTS AND [...] developed and its performance characteristics determined by [employer]. Nucleic acid amplification tests include RT-PCR and [...] assay. Procedures Date Code Description Status 01/02/2021 93186 Office/Outpatient Established Mo d MDM 30-39 Min Completed 11/30/2020 97486 Office/Outpatient Established Mo d MDM 30-39 Min Completed Medical Devices Description No Information Available Encounters Type Date Location Provider Dx Diagnosis Office Visit 01/02/2021 1:45p [place] [facility] Gregorio Faith, FAAFP N18.30 Chronic kidney disease, stage 3 unspecif ied D64.9 Anemia, unspecified K21.9 Gastro-esophageal reflux dis ease without esophagitis Office Visit 11/30/2020 1:30p [place] [facility] Gregorio Faith, FAAFP D64.9 Anemia, unspecified [...] disease, stage 3 unspecified Eber Gonzáles D.O., [facility] 11/30/2020 R10.32 Left lower quadrant pain Eber Gonzáles D.O., [facility] Plan of Treatment Future Appointment(s):* 04/10/2021 2:00 pm - Eber Gonzáles D.O., [facility] at [facility] Functional Status Description No Information Available Mental Status Description No Information Available Referrals Description No Information Available
--- OUTSIDE RECORDS SUMMARY | 2021-04-29 12:39 | CCD | Continuity of Care Document ---
Author Author David CAMILO M.D. Organization Unknown Address [facility] [address] [place] [address] Phone [phone] Care Team Providers Care Underground Truck Operator Name Role Phone Eber oCnway DO AUTM Unavailable Problems Active Problems Provider Date Type 2 diabetes mellitus EDITH Santos Onset: 0 07/05/2019 Malignant tumor of prostate EDITH Santos Onset : 07/05/2019 Hyperlipidemia EDITH Santos Onset: 2019 Gastroesophageal reflux disease EDITH Santos O nset: 07/05/2019 Essential hypertension EDITH Santos Onset: Hydronephrosis with ureteropelvic junction obstruction EDITH Santos Onset: 10/03/2020 Malignant tumor of urinary bladder Fidel Camilo M.D. Onset : 03/27/2020 Encounter for fitting [...] a day as directed 14tabs R31.0 Fidel Camilo M.D. 02/13/2021 Tramadol HCL 50mg Tablets Unknown Hydroxyzine HCL 25mg Tablets Take One Tablet By Mouth AT Bedtime Unknown Famotidine 40mg Tablets 1 by mouth every day Unknown Immunizations Description No Information Available Vital Signs Date Vital Result Comment 12/25/2020 1:46pm BP Systolic 118 mmHg BP Diastolic 66 mmHg Heart Rate 80 /min Body Temperature 96.9 F Respiratory Rate 20 /min O2 % BldC Oximetry 94 % Weight 136.25 lb Weight 61.803 kg 10/03/2020 1:41pm BP Systolic 112 mmHg BP Diastolic 62 mmHg Heart Rate 101 /min Respiratory Rate 20 /min O2 % BldC Oximetry 94 % Results Description No Information Available Procedures Date Code Description Status 02/13/2021 26819 Office/Outpatient Established SF MDM 10-19 Min Completed 12/25/2020 47446 Office/Outpatient Established Mo d MDM 30-39 Min Completed 10/03/2020 91109 Office/Outpatient Established Mo d MDM 30-39 Min Completed Medical Devices Description No Information Available Encounters Type Date Location Provider Dx Diagnosis Office Visit 02/13/2021 3:15p [facility] Fidel Camilo M.D. N45.3 Epididymo-orchitis R31.0 Gross hematuria C67.9 Malignant neoplasm of bladde r, unspecified Assessments Date Code Description Provider 02/13/2021 N45.3 Epididymo-orchitis Fidel Camilo M.D. 02/13/2021 R31.0 Gross hematuria Najma Stack 02/13/2021 C67.9 Malignant neoplasm of bladder, u nspecified Fidel Camilo M.D. 12/25/2020 N13.0 Hydronephrosis with ureteropelvi c junction obstruction Romy Patten, EDITH 12/25/2020 C67.9 Malignant neoplasm of bladder, u nspecified EDITH Santos 12/25/2020 C61 Malignant neoplasm of prostate N EDITH Cruz 10/03/2020 N13.0 Hydronephrosis with ureteropelvi c junction obstruction EDITH Santos 10/03/2020 C67.9 Malignant neoplasm of bladder, u nspecified EDITH Santos 10/03/2020 C61 Malignant neoplasm of prostate N EDITH Cruz 10/03/2020 N32.81 Overactive bladder EDITH Larry Plan of Treatment Future Appointment(s):* 03/19/2021 10:15 am - Urology Resource Schedule at [facility] 02/13/2021 - Fidel Camilo M.D.* N45.3 Epididymo-orchitis* Comments:* 1. Patient presents to the clinic today with history of bladder cancer for testi cular swelling and bleeding from penis.2. Physical examination showed bilateral epididymal orchitis, otherwise unremarkable.3. They were made aware that testicular swelling/soreness and gross hematuria are different issues. 4. We will start him on Cipro 500 mg one tablet by mouth BID as directed. Patient was instructed to continue his current regimen as directed.5. CBC will be ordered to rule out any anemia.6. Patient was advised to call or RTC if he develops any new concerns or complaints. * R31.0 Gross hematuria* New Medication:* Cipro 500 mg - 1 tab by mouth twice a day as directed * Comments:* Plan as above. * C67.9 Malignant neoplasm of bladder, unspecified* Comments:* No new treatmetn was indicated at that time. Functional Status Description No Information Available Mental Status Description No Information Available Referrals Description No Information Available"
--- OUTSIDE RECORDS SUMMARY | 2021-04-29 12:39 | CCD | Continuity of Care Document ---
Author Organization Unknown Address Unknown Phone Unavailable Care Team Providers Care Director Cardiology Name Role Phone Eber Conway D.O. [facility] [phone] Problems Active Problems Provider Date Malignant tumor of prostate Eber Conway D.O., FAAFP Ons et: 03/17/2003 Hyperlipidemia Phong Rondon M.D. Onset: 11/21/2004 Gastroesophageal reflux disease Eber Conway D.O., [facility] Onset: 05/27/2006 Benign essential hypertension Eber Conway D.O., FAAFP O nset: 09/29/2011 Essential hypertension Eber Conway D.O., FAAFP Onset: 1 06/24/2014 Chronic kidney disease stage 3 Eber Conway D.O., FAAFP Onset: 03/02/2019 Social History Type [...] needed diarrhea please call pt 30tabs Emmanuel Conway D.O., FAAFP 04/04/2021 Ondansetron HCL 4mg Tablets take one tablet by mouth every 8 hours as needed for nausea 30tabs Eber Conway D.O., [facility] 11/29/[address] 1 by mouth every day 90tabs Eber Conway D.O., FAAFP Tramadol HCL 50mg Tablets 1 tab by mouth by mouth three times a day 90tabs Eber Conway D.O. , [facility] 01/23/2020 Blood Glucose Test Strips use once a day and as needed (dx: e11.9) 100units E11.9 Eber Conway D.O., [facility] 06/23/2017 Hydroxyzine HCL 25mg Tablets 1 by mouth every at bedtime Unknown History Medications Keflex 500mg Capsules 1 tab by mouth three times a day for 10 days for uti please call pt 30caps Eber Conway D.O., [facility] 01/02/2021 - 04/05/2021 Prednisone 5mg Tablets Take One Tablet By Mouth Every Day 15tabs Eber Conway D.O., [facility] - 04/05/2021 Prednisone 20mg Tablets 1 tab by mouth daily for 7 days with food 7tabs Eber Conway D.O. , [facility] 12/26/2020 - 12/27/2020 Levofloxacin 250mg Tablets 1 by mouth every day please call pt 7tabs Eber Conway D.O., [facility] 11/30/2020 - 12/07/2020 Medications Administered in Office Medication SIG Qnty Indications Ordering Provider Date Injection (SC)/(Im) Injection Eber Conway D.O., [facility] 11/23/2019 Immunizations CPT Code Status Date Vaccine Lot # [id number] Given 11/23/2019 Tdap Tetanus,Dip htheria Toxoids/Acellular Pertussis 7Yrs Or Older [id number] 11161 Refused 03/26/2021 Influenza Virus Vaccine, Quadrivalent, Slit Virus, Im Use 3Y & Up 55566 Refused 03/02/2019 Influenza Virus Vaccine, Quadrivalent, Slit Virus, Im Use 3Y & Up 62385 Refused 02/17/2018 Pneumococcal Immunization 65633 Refused 02/17/2018 Influenza Virus Vaccine, Quadrivalent, Slit Virus, Im Use 3Y & Up 67588 Refused 05/13/2017 Influenza Virus Vaccine, Quadrivalent, Slit Virus, Im Use 3Y & Up 39885 Refused 04/24/2015 Influenza Vaccin e (Fluzone) 3Yrs Of Age Or Older Medicare Plans 20547 Refused 04/18/2013 Influenza Virus Vac. Split Virus Individuals 3 Years And Above 31569 Refused 04/13/2012 Pneumococcal Immunization 99534 Refused 04/13/2012 Influenza Virus Vac. Split Virus Individuals 3 Years And Above Vital Signs Date Vital Result Comment 04/05/2021 10:37am BP Systolic 118 mmHg BP Diastolic 78 mmHg Body Temperature 97.3 F Heart Rate 74 /min Respiratory Rate 18 /min Height 62 inches 5'2" Weight 135.00 lb [place] Body Weight 118 lb BMI (Body Mass Index) 24.7 kg/m2 O2 % BldC Oximetry 99 % (AT Rest), (Room Air ) 01/02/2021 2:02pm BP Systolic 116 mmHg BP Diastolic 74 mmHg Body Temperature 97.9 F Heart Rate 76 /min Respiratory Rate 16 /min Height 62 inches 5'2" Weight 136.00 lb [place] Body Weight 118 lb BMI (Body Mass Index) 24.9 kg/m2 O2 % BldC Oximetry 96 % Results Test Acquired Date Facility Test Result H/L Range Note Basic Metabolic Panel 04/04/2021 [place] [id number] [phone] Basic Metabolic Pane (SEE NOTE) 1, 2 [...] TNP 12 Enterotoxigenic E coli TNP 13 Nhemg-cidhx-bexafedxo E coli TNP 14 E coli O157 [...] Enterotoxigenic E coli Not Detected Not Detected Yecdu-dxtbx-oxetazirs E coli Not Detected Not Detecte d [...] Sapovirus Not Detected Not Detected Covid-19 03/25/2021 [place] [address] [phone] Sars-CoV-2, Johanne Not Detected Not Detected 29 Sars-CoV-2, Johanne 2 Day Tat Performed CBC W/Automated Diff 02/13/2021 [place] [address] [phone] CBC W/Automated Diff (SEE NOTE) 30, 31 [...] Lymph 18.7 % Low 25.0 - 40.0 [place] 10.7 % High 3.0 - 8.0 Eos 6.3 % 0.0 - 7.0 Baso 0.8 % 0.0 - 2.0 %Ig 0.6 % High 0.0 - 0.0 %NRBC 0.0 % 0.0 - 0.0 #Neut 4.11 10^3/uL 2.00 - 6.90 #Lymph 1.22 10^3/uL 0.60 - 3.40 #[place] 0.70 10^3/uL 0.00 - 0.90 #Eos 0.41 10^3/uL 0.00 - 0.70 #Baso 0.05 10^3/uL 0.00 - 0.20 #Ig 0.04 10^3/uL 0.00 - 0.10 #NRBC 0.00 10^3/uL 0.00 - 0.00 Manual Diff NOT INDICATED RBC Morph NOT INDICATED Covid-19 01/14/2021 [place] [address] [phone] Sars-CoV-2, Johanne Not Detected Not Detected 32 [...] QUAL Negative Ketone Negative mg/dL Negative Specific [place] 1.020 # 1.000 - 1.030 Blood - [...] eGFR 27 # Calc 34 eGFR Non-Afr. Maldivian 24 # Calc 35 Urine Culture, Routine [...] eGFR 34 # Calc 47 eGFR Non-Afr. Maldivian 30 # Calc 48 U/A DIP 11/30/2020 FPA/Inhouse Color lt yellow QUAL Clarity cloudy QUAL Glucose-Ua Negative g/dL Negative Bilirubin,Urine Negative QUAL Negative Ketone Negative mg/dL Negative Specific [place] 1.025 # 1.000 - 1.030 Blood - Ua Moderate QUAL Abnormal Negative pH 5.0 # 5.0 - 8.0 Protein 30 mg/dL Abnormal Negative Urobilinogen 0.2 NA 0.2 - 1.0 Nitrite Positive QUAL Abnormal Negative Leukocyte Large QUAL Abnormal Negative Comment SAMPLE QNS NA Covid-19 10/15/2020 [place] [id number] [phone] Sars-CoV-2, Johanne Not Detected Not Detected 49 [...] No stool culture transport device received. TEST: [id number] GI Profile, Stool, PCR 29 This nucleic acid amplificat ion test was developed and its performance characteristics determined by [employer]. Nucleic acid amplification tests include RT-PCR and [...] developed and its performance characteristics determined by [employer]. Nucleic acid amplification tests include RT-PCR and [...] HCT IS 5% LESS SOURCE FOR DATA: [employer] 1800 OPERATION MANUAL( AUTOMATED BLOOD COUNTS AND [...] HCT IS 5% LESS SOURCE FOR DATA: [employer] 1800 OPERATION MANUAL( AUTOMATED BLOOD COUNTS AND [...] developed and its performance characteristics determined by [employer]. Nucleic acid amplification tests include RT-PCR and [...] assay. Procedures Date Code Description Status 01/02/2021 60592 Office/Outpatient Established Mo d MDM 30-39 Min Completed 11/30/2020 54350 Office/Outpatient Established Mo d MDM 30-39 Min Completed Medical Devices Description No Information Available Encounters Type Date Location Provider Dx Diagnosis Office Visit 01/02/2021 1:45p [place] [facility] Gregorio Faith, FAAFP N18.30 Chronic kidney disease, stage 3 unspecif ied D64.9 Anemia, unspecified K21.9 Gastro-esophageal reflux dis ease without esophagitis Office Visit 11/30/2020 1:30p [place] [facility] Gregorio Faith, FAAFP D64.9 Anemia, unspecified N18.30 Chronic kidney disease, stag e 3 unspecified R10.32 Left lower quadrant pain Assessments Date Code Description Provider 01/02/2021 N18.30 Chronic kidney disease, stage 3 unspecified Eber Conway D.O., FAAFP 01/02/2021 D64.9 Anemia, unspecified Eber bush D.O., FAAFP 01/02/2021 K21.9 Gastro-esophageal reflux disease without esophagitis Eber Conway D.O., FAAFP 11/30/2020 D64.9 Anemia, unspecified Eber bush D.O., FAAFP 11/30/2020 N18.30 Chronic kidney disease, stage 3 unspecified Eber Conway D.O., FAAFP 11/30/2020 R10.32 Left lower quadrant pain Eber Conway D.O., [facility] Plan of Treatment Future Appointment(s):* 04/10/2021 2:00 pm - Eber Conway D.O., [facility] at [facility] Functional Status Description No Information Available Mental Status Description No Information Available Referrals Description No Information Available
--- OUTSIDE RECORDS SUMMARY | 2021-04-29 12:42 | CCD ---
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 Role Phone ANGELLA Belcher MD Unavailable Unavailable ANGELLA Belcher MD Unavailable Unavailable ANGELLA Belcher MD Unavailable Unavailable ANGELLA Belcher MD Unavailable Unavailable Simi, ANGELLA ALLEN MD Unavailable Unavailable Simi, ANGELLA ALLEN MD Unavailable Unavailable Bartoszewsjanneth, Shirley Wagoner MS, RPA-C Unavailable Unav ailable Bartoszewski, Shirley Wagoner MS, RPA-C Unavailable Unav ailable Bartoszewski, Shirley Romy MS, RPA-C Unavailable Unav ailable Bartoszewski, Shirley Wagoner MS, RPA-C Unavailable Unav ailable Bartoszewski, Shirley Romy MS, RPA-C Unavailable Unav ailable Bartoszewski, Shirley Romy MS, RPA-C Unavailable Unav ailable Bartoszewski, Shirley Romy MS, RPA-C Unavailable Unav ailable Bartoszewski, Shirley Romy MS, RPA-C Unavailable Unav ailable Bartoszewski, Shirley Romy MS, RPA-C Unavailable Unav ailable Bartoszewski, Shirley Romy MS, RPA-C Unavailable Unav ailable Bartoszewski, Shirley Romy MS, RPA-C Unavailable Unav ailable Bartoszewski, Shirley Romy MS, RPA-C Unavailable Unav ailable Bartoszewski, Shirley Romy MS, RPA-C Unavailable Unav ailable Bartoszewski, Shirley Romy MS, RPA-C Unavailable Unav ailable Bartoszewski, Shirley Romy MS, RPA-C Unavailable Unav ailable Bartoszewski, Shirley Romy MS, RPA-C Unavailable Unav ailable Bartoszewski, Shirley Romy MS, RPA-C Unavailable Unav ailable Bartoszewski, Shirley Romy MS, RPA-C Unavailable Unav ailable Bartoszewski, Shirley Romy MS, RPA-C Unavailable Unav ailable Bartoszewski, Shirley Romy MS, RPA-C Unavailable Unav ailable Bartoszewski, Shirley Romy MS, RPA-C Unavailable Unav ailable Bartoszewski, Shirley Romy MS, RPA-C Unavailable Unav ailable Bartoszewski, Shirley Romy MS, RPA-C Unavailable Unav ailable Bartoszewski, Shirley Romy MS, RPA-C Unavailable Unav ailable Bartoszewski, Shirley Romy MS, RPA-C Unavailable Unav ailable Bartoszewski, Shirley Romy MS, RPA-C Unavailable Unav ailable Bartoszewski, Shirley Romy MS, RPA-C Unavailable Unav ailable Bartoszewski, Shirley Romy MS, RPA-C Unavailable Unav ailable Bartoszewski, Shirley Romy MS, RPA-C Unavailable Unav ailable Bartoszewski, Shirley Romy MS, RPA-C Unavailable Unav ailable Rain ORANTES DPM Unavailable Unavailable Rain ORANTESM Unavailable Unavailable Rain ORANTES DPM Unavailable Unavailable Rain ORANTES DPM Unavailable Unavailable Rain ORANTES DPM Unavailable Unavailable Rain ORANTES DPM Unavailable Unavailable Rain ORANTES DPM Unavailable Unavailable Rain ORANTES DPM Unavailable Unavailable Rain ORANTES DPM Unavailable Unavailable Rain ORANTES DPM Unavailable Unavailable Rain ORANTES DPM Unavailable Unavailable Rain ORANTES DPM Unavailable Unavailable Rain ORANTES DPM Unavailable Unavailable Rain ORANTES DPM Unavailable Unavailable Rain ORANTES DPM Unavailable Unavailable Rain ORANTES DPM Unavailable Unavailable Rain ORANTES DPM Unavailable Unavailable MAJAK, R KELLEE DPM Unavailable Unavailable MAJAK, R KELLEE DPM Unavailable Unavailable MAJAK, R KELLEE DPM Unavailable Unavailable MAJAK, R KELLEE DPM Unavailable Unavailable MAJAK, R KELLEE DPM Unavailable Unavailable MAJAK, R KELLEE DPM Unavailable Unavailable MAJAK, R KELLEE DPM Unavailable Unavailable MAJAK, R KELLEE DPM Unavailable Unavailable MAJAK, R KELLEE DPM Unavailable Unavailable MAJAK, R KELLEE DPM Unavailable Unavailable MAJAK, R KELLEE DPM Unavailable Unavailable MAJAK, R KELLEE DPM Unavailable Unavailable MAJAK, R KELLEE DPM Unavailable Unavailable MAJAK, R KELLEE DPM Unavailable Unavailable MAJAK, R KELLEE DPM Unavailable Unavailable SANDY CRAMER MD Unavailable Unavailable SANDY CRAMER MD Unavailable Unavailable SANDY CRAMER MD Unavailable Unavailable SANDY CRAMER MD Unavailable Unavailable SANDY CRAMER MD Unavailable Unavailable SANDY CRAMER MD Unavailable Unavailable SANDY CRAMER MD Unavailable Unavailable SANDY CRAMER MD Unavailable Unavailable SANDY CRAMER MD Unavailable Unavailable GAMBHISANDY Rodrigez MD Unavailable Unavailable GAMBHISANDY Rodrigez MD Unavailable Unavailable MARAHHISANDY Rodrigez MD Unavailable Unavailable Dayne VERA MD Unavailable Unavailable Dayne VERA MD Unavailable Unavailable Dayne VERA MD Unavailable Unavailable Dayne VERA MD Unavailable Unavailable Dayne VERA MD Unavailable Unavailable Dayne VERA MD Unavailable Unavailable Dayne VERA MD Unavailable Unavailable Dayne VERA MD Unavailable Unavailable Dayne VERA MD Unavailable Unavailable OBKody ERCI MD Unavailable Unavailable OBKody ERIC FIDEL MD Unavailable Unavailable OBJEANETH T FIDEL MD Unavailable Unavailable OBKody ERIC FIDEL Unavailable Unavailable OBJEANETH T FIDEL MD Unavailable Unavailable OBJEANETH T FIDEL Unavailable Unavailable OBJEANETH T FIDEL Unavailable Unavailable OBJEANETH T FIDEL Unavailable Unavailable OBEN T FIDEL MD Unavailable Unavailable OBEN, T FIDEL MD Unavailable Unavailable OBEN, T FIDEL MD Unavailable Unavailable OBEN, T FIDEL MD Unavailable Unavailable OBEN, T FIDEL MD Unavailable Unavailable OBEN T FIDEL MD Unavailable Unavailable OBEN, T FIDEL MD Unavailable Unavailable OBEN, T FIDEL MD Unavailable Unavailable OBEN, T FIDEL MD Unavailable Unavailable OBEN, T FIDEL MD Unavailable Unavailable OBEN, T FIDEL MD Unavailable Unavailable OBEN, T FIDEL MD Unavailable Unavailable OBEN, T FIDEL MD Unavailable Unavailable OBEN, T FIDEL MD Unavailable Unavailable OBEN, T FIDEL MD Unavailable Unavailable OBEN, T FIDEL MD Unavailable Unavailable OBEN, T FIDEL MD Unavailable Unavailable OBEN, T FIDEL MD Unavailable Unavailable OBEN, T FIDEL MD Unavailable Unavailable OBEN, T FIDEL MD Unavailable Unavailable OBEN, T FIDEL MD Unavailable Unavailable OBEN, T FIDEL MD Unavailable Unavailable OBEN, T FIDEL MD Unavailable Unavailable OBEN, T FIDEL MD Unavailable Unavailable OBEN, T FIDEL MD Unavailable Unavailable OBEN, T FIDEL MD Unavailable Unavailable OBEN, T FIDEL MD Unavailable Unavailable OBEN, T FIDEL MD Unavailable Unavailable OBEN, T FIDEL MD Unavailable Unavailable OBEN, T FIDEL MD Unavailable Unavailable OBEN, T FIDEL MD Unavailable Unavailable OBEN, T FIDEL MD Unavailable Unavailable OBEN, T FIDEL MD Unavailable Unavailable OBEN, T FIDEL MD Unavailable Unavailable OBEN, T FIDEL MD Unavailable Unavailable OBEN, T FIDEL MD Unavailable Unavailable OBEN, T FIDEL MD Unavailable Unavailable OBEN, T FIDEL MD Unavailable Unavailable OBEN, T FIDEL MD Unavailable Unavailable OBEN, T FIDEL MD Unavailable Unavailable OBEN, T FIDEL MD Unavailable Unavailable OBEN, T FIDEL MD Unavailable Unavailable OBEN, T FIDEL MD Unavailable Unavailable OBEN, T FIDEL MD Unavailable Unavailable OBEN, T FIDEL MD Unavailable Unavailable OBEN, T FIDEL MD Unavailable Unavailable OBEN, T FIDEL MD Unavailable Unavailable OBEN, T FIDEL MD Unavailable Unavailable OBEN, T FIDEL MD Unavailable Unavailable OBEN, T FIDEL MD Unavailable Unavailable FORNI, R JAYNE DPM Unavailable Unavailable FORNI, R JAYNE DPM Unavailable Unavailable FORNI, R JAYNE DPM Unavailable Unavailable FORNI, R JAYNE DPM Unavailable Unavailable FORNI, R JAYNE DPM Unavailable Unavailable FORNI, R JAYNE DPM Unavailable Unavailable FORNI, R JAYNE DPM Unavailable Unavailable FORNI, R JAYNE DPM Unavailable Unavailable FORNI, R JAYNE DPM Unavailable Unavailable FORNI, R JAYNE DPM Unavailable Unavailable MARY FLOYD MD Unavailable Unavailable MARY FLOYD MD Unavailable Unavailable MARY FLOYD MD Unavailable Unavailable MARY FLOYD MD Unavailable Unavailable MARY FLOYD MD Unavailable Unavailable MARY FLOYD MD Unavailable Unavailable MARY FLOYD MD Unavailable Unavailable MARY FLOYD MD Unavailable Unavailable MARY FLOYD MD Unavailable Unavailable MARY FLOYD MD Unavailable Unavailable MARY FLOYD MD Unavailable Unavailable MARY FLOYD MD Unavailable Unavailable MARY FLOYD MD Unavailable Unavailable MARY FLOYD MD Unavailable Unavailable MARY FLOYD MD Unavailable Unavailable MARY FLOYD MD Unavailable Unavailable MARY FLOYD MD Unavailable Unavailable MARY FLOYD MD Unavailable Unavailable Bartoszewski, Shirley Rmoy MS, RPA-C Unavailable Unav ailable Bartoszewski, Shirley Romy MS, RPA-C Unavailable Unav ailable Bartoszewski, Shirley Romy MS, RPA-C Unavailable Unav ailable Bartoszewski, Shirley Romy MS, RPA-C Unavailable Unav ailable Bartoszewski, Shirley Romy MS, RPA-C Unavailable Unav ailable Bartoszewski, Shirley Romy MS, RPA-C Unavailable Unav ailable Bartoszewski, Shirley Romy MS, RPA-C Unavailable Unav ailable Bartoszewski, Shirley Romy MS, RPA-C Unavailable Unav ailable Bartoszewski, Shirley Romy MS, RPA-C Unavailable Unav ailable Bartoszewski, Shirley Romy MS, RPA-C Unavailable Unav ailable Bartoszewski, Shirley Romy MS, RPA-C Unavailable Unav ailable Bartoszewski, Shirley Romy MS, RPA-C Unavailable Unav ailable Bartoszewski, Shirley Romy MS, RPA-C Unavailable Unav ailable Bartoszewski, Shirley Romy MS, RPA-C Unavailable Unav ailable Bartoszewski, Shirley Romy MS, RPA-C Unavailable Unav ailable Bartoszewski, Shirley Romy MS, RPA-C Unavailable Unav ailable Bartoszewski, Shirley Romy MS, RPA-C Unavailable Unav ailable Bartoszewski, Shirley Romy MS, RPA-C Unavailable Unav ailable Bartoszewski, Shirley Romy MS, RPA-C Unavailable Unav ailable Bartoszewski, Shirley Romy MS, RPA-C Unavailable Unav ailable Bartoszewski, Shirley Romy MS, RPA-C Unavailable Unav ailable Bartoszewski, Shirley Romy MS, RPA-C Unavailable Unav ailable Bartoszewski, Shirley Romy MS, RPA-C Unavailable Unav ailable Bartoszewski, Shirley Romy MS, RPA-C Unavailable Unav ailable Bartoszewski, Shirley Romy MS, RPA-C Unavailable Unav ailable Bartoszewski, Shirley Romy MS, RPA-C Unavailable Unav ailable Bartoszewski, Shirley Romy MS, RPA-C Unavailable Unav ailable Bartoszewski, Shirley Romy MS, RPA-C Unavailable Unav ailable Bartoszewski, Shirley Romy MS, RPA-C Unavailable Unav ailable Bartoszewski, Shirley Romy MS, RPA-C Unavailable Unav ailable OBEN, T FIDEL MD Unavailable Unavailable OBEN, T FIDEL MD Unavailable Unavailable OBEN, T FIDEL MD Unavailable Unavailable OBEN, T FIDEL MD Unavailable Unavailable OBEN, T FIDEL MD Unavailable Unavailable OBEN, T FIDEL MD Unavailable Unavailable OBEN, T FIDEL MD Unavailable Unavailable OBEN, T FIDEL MD Unavailable Unavailable OBEN, T FIDEL MD Unavailable Unavailable OBEN, T FIDEL MD Unavailable Unavailable OBEN, T FIDEL MD Unavailable Unavailable OBEN, T FIDEL MD Unavailable Unavailable OBEN, T FIDEL MD Unavailable Unavailable OBEN, T FIDEL MD Unavailable Unavailable OBEN, T FIDEL MD Unavailable Unavailable OBEN, T FIDEL MD Unavailable Unavailable OBEN, T FIDEL MD Unavailable Unavailable OBEN, T FIDEL MD Unavailable Unavailable OBEN, T FIDEL MD Unavailable Unavailable OBEN, T FIDEL MD Unavailable Unavailable OBEN, T FIDEL MD Unavailable Unavailable OBEN, T FIDEL MD Unavailable Unavailable OBEN, T FIDEL MD Unavailable Unavailable OBEN, T FIDEL MD Unavailable Unavailable OBEN, T FIDEL MD Unavailable Unavailable OBEN, T FIDEL MD Unavailable Unavailable OBEN, T FIDEL MD Unavailable Unavailable OBEN, T FIDEL MD Unavailable Unavailable OBEN, T FIDEL MD Unavailable Unavailable OBEN, T FIDEL MD Unavailable Unavailable OBEN, T FIDEL MD Unavailable Unavailable OBEN, T FIDEL MD Unavailable Unavailable OBEN, T FIDEL MD Unavailable Unavailable OBEN, T FIDEL MD Unavailable Unavailable OBEN, T FIDEL MD Unavailable Unavailable OBEN, T FIDEL MD Unavailable Unavailable OBEN, T FIDEL MD Unavailable Unavailable OBEN, T FIDEL MD Unavailable Unavailable OBEN, T FIDEL MD Unavailable Unavailable OBEN, T FIDEL MD Unavailable Unavailable OBEN, T FIDEL MD Unavailable Unavailable OBEN, T FIDEL MD Unavailable Unavailable OBEN, T FIDEL MD Unavailable Unavailable OBEN, T FIDEL MD Unavailable Unavailable OBEN, T FIDEL MD Unavailable Unavailable OBEN, T FIDEL MD Unavailable Unavailable OBEN, T FIDEL MD Unavailable Unavailable OBEN, T FIDEL MD Unavailable Unavailable OBEN, T FIDEL MD Unavailable Unavailable OBEN, T FIDEL MD Unavailable Unavailable OBEN, T FIDEL MD Unavailable Unavailable OBEN, T FIDEL MD Unavailable Unavailable OBEN, T FIDEL MD Unavailable Unavailable OBEN, T FIDEL MD Unavailable Unavailable OBEN, T FIDEL MD Unavailable Unavailable OBEN, T FIDEL MD Unavailable Unavailable OBEN, T FIDEL MD Unavailable Unavailable OBEN, T FIDEL MD Unavailable Unavailable Nancy Brooks MD Unavailable Unavailable Nancy Brooks MD Unavailable Unavailable Nancy Brooks MD Unavailable Unavailable Nancy Brooks MD Unavailable Unavailable Nancy Brooks MD Unavailable Unavailable Nancy Brooks MD Unavailable Unavailable Nancy Brooks MD Unavailable Unavailable Fish, J Eber Unavailable Unavailable Fish, J Eber Unavailable Unavailable Fish, J Eber Unavailable Unavailable Fish, J Eber Unavailable Unavailable Fish, J Eber Unavailable Unavailable Fish, J Eber Unavailable Unavailable Fish, J Eber Unavailable Unavailable Fish, J Eber Unavailable Unavailable Fish, J Eber Unavailable Unavailable Fish, J Eber Unavailable Unavailable Fish, J Eber Unavailable Unavailable Fish, J Eber Unavailable Unavailable Fish, J Eber Unavailable Unavailable Fish, J Eber Unavailable Unavailable Fish, J Eber Unavailable Unavailable Fish, J Eber Unavailable Unavailable Fish, J Eber Unavailable Unavailable Fish, J Eber Unavailable Unavailable Fish, J Eber Unavailable Unavailable Fish, J Eber Unavailable Unavailable Fish, J Eber Unavailable Unavailable Fish, J Eber Unavailable Unavailable Fish, J Eber Unavailable Unavailable Fish, J Eber Unavailable Unavailable Fish, J Eber Unavailable Unavailable Fish, J Eber Unavailable Unavailable Fish, J Eber Unavailable Unavailable Fish, J Eber Unavailable Unavailable Fish, J Eber Unavailable Unavailable Fish, J Eber Unavailable Unavailable Fish, J Eber Unavailable Unavailable Fish, J Eber Unavailable Unavailable Fish, J Eber Unavailable Unavailable Fish, J Eber Unavailable Unavailable Fish, J Eber Unavailable Unavailable Fish, J Eber Unavailable Unavailable Fish, J Eber Unavailable Unavailable Fish, J Eber Unavailable Unavailable Fish, J Eber Unavailable Unavailable Fish, J Eber Unavailable Unavailable Fish, J Eber Unavailable Unavailable Fish, J Eber Unavailable Unavailable Fish, J Eber Unavailable Unavailable Fish, J Eber Unavailable Unavailable Fish, J Eber Unavailable Unavailable Fish, J Eber Unavailable Unavailable Fish, J Eber Unavailable Unavailable Fish, J Eber Unavailable Unavailable Fish, J Eber Unavailable Unavailable Fish, J Eber Unavailable Unavailable Fish, J Eber Unavailable Unavailable Fish, J Eber Unavailable Unavailable Fish, J Eber Unavailable Unavailable Fish, J Eber Unavailable Unavailable Fish, J Eber Unavailable Unavailable Fish, J Eber Unavailable Unavailable Fish, J Eber Unavailable Unavailable Fish, J Eber Unavailable Unavailable Fish, J Eber Unavailable Unavailable Fish, J Eber Unavailable Unavailable Fish, J Eber Unavailable Unavailable Fish, J Eber Unavailable Unavailable Fish, J Eber Unavailable Unavailable Fish, J Eber Unavailable Unavailable Fish, J Eber Unavailable Unavailable Fish, J Eber Unavailable Unavailable Fish, J Eber Unavailable Unavailable Fish, J Eber Unavailable Unavailable Fish, J Eber Unavailable Unavailable Fish, J Eber Unavailable Unavailable Fish, J Eber Unavailable Unavailable Fish, J Eber Unavailable Unavailable Fish, J Eber Unavailable Unavailable Fish, J Eber Unavailable Unavailable Fish, J Eber Unavailable Unavailable Fish, J Eber Unavailable Unavailable Fish, J Eber Unavailable Unavailable Fish, J Eber Unavailable Unavailable Fish, J Eber Unavailable Unavailable Fish, J Eber Unavailable Unavailable Fish, J Eber Unavailable Unavailable Fish, J Eber Unavailable Unavailable Fish, J Eber Unavailable Unavailable Fish, J Eber Unavailable Unavailable Fish, J Eber Unavailable Unavailable Leggat Blake Frankel MD Unavailable Unavailable Leggat Blake Frankel MD Unavailable Unavailable Leggat Blake Frankel MD Unavailable Unavailable Leggat Blake Frankel MD Unavailable Unavailable Leggat Blake Frankel MD Unavailable Unavailable Leggat Blake Frankel MD Unavailable Unavailable Leggat Jr E Narayan ATKINSON Unavailable Unavailable Leggat Blake Frankel MD Unavailable Unavailable Leggat Jr E Narayan ATKINSON Unavailable Unavailable Leggat Jr, Blake Busch MD Unavailable Unavailable Leggat Jr, E Narayan ATKINSON Unavailable Unavailable Leggat Blake Frankel MD Unavailable Unavailable Leggat Blake Frankel MD Unavailable Unavailable Leggat Jr E Narayan ATKINSON Unavailable Unavailable Leggat Jr E Narayan ATKINSON Unavailable Unavailable Leggat Jr E Narayan ATKINSON Unavailable Unavailable Leggat Blake Frankel MD Unavailable Unavailable Leggat Blake Frankel MD Unavailable Unavailable Leggat Blake Frankel MD Unavailable Unavailable Leggat Blake Frankel MD Unavailable Unavailable Leggat Blake Frankel MD Unavailable Unavailable Leggat Blake Frankel MD Unavailable Unavailable Leggat Blake Frankel MD Unavailable Unavailable Leggat Blake Frankel MD Unavailable Unavailable Leggat Blake Frankel MD Unavailable Unavailable Leggat Blake Frankel MD Unavailable Unavailable Leggat Blake Frankel MD Unavailable Unavailable Leggat Blake Frankel MD Unavailable Unavailable Leggat Blake Frankel MD Unavailable Unavailable Leggat Blake Frankel MD Unavailable Unavailable Leggat Blake rFankel MD Unavailable Unavailable Leggat Blake Frankel MD Unavailable Unavailable Leggat Blake Frankel MD Unavailable Unavailable Leggat Blake Frankel MD Unavailable Unavailable Leggat Blake Frankel MD Unavailable Unavailable Leggat Blake Frankel MD Unavailable Unavailable Leggat Blake Frankel MD Unavailable Unavailable Leggat Blake Frankel MD Unavailable Unavailable Leggat Blake Frankel MD Unavailable Unavailable Leggat Blake Frankel MD Unavailable Unavailable Leggat Blake Frankel MD Unavailable Unavailable Leggat Blake Frankel MD Unavailable Unavailable Leggat Blake Frankel MD Unavailable Unavailable Leggat Blake Frankel MD Unavailable Unavailable Leggat Blake Frankel MD Unavailable Unavailable Leggat Blake Frankel MD Unavailable Unavailable Leggat Blake Frankel MD Unavailable Unavailable Dayne SERRANO MD Unavailable Unavailable Dayne SERRANO MD Unavailable Unavailable Dayne SERRANO MD Unavailable Unavailable Dayne SERRANO MD Unavailable Unavailable Dayne SERRANO MD Unavailable Unavailable KNOHL, J DEEPALI MD Unavailable Unavailable Dayne SERRANO MD Unavailable Unavailable NEYMAROHDayne Montalvo MD Unavailable Unavailable NEYMAROHDayne Montalvo MD Unavailable Unavailable NEYMAROHDayne Montalvo MD Unavailable Unavailable NEYMAROHDayne Montalvo MD Unavailable Unavailable NEYMAROHDayne Montalvo MD Unavailable Unavailable NEYMAROHDayne Montalvo MD Unavailable Unavailable NEYMAROHDayne Montalvo MD Unavailable Unavailable NEYMAROHDayne Montalvo MD Unavailable Unavailable NEYMAROHDayne Montalvo MD Unavailable Unavailable NEYMAROHDayne Montalvo MD Unavailable Unavailable NEYMAROHDayne Montalvo MD Unavailable Unavailable NEYMAROHDayne Montalvo MD Unavailable Unavailable NEYMAROHDayne [place]alvo MD Unavailable Unavailable Dayne SERRANO MD Unavailable Unavailable Dayne SERRANO MD Unavailable Unavailable Dayne SERRANO MD Unavailable Unavailable Dayne SERRANO MD Unavailable Unavailable Dayne SERRANO MD Unavailable Unavailable Dayne SERRANO MD Unavailable Unavailable Dayne SERRANO MD Unavailable Unavailable Dayne SERRANO MD Unavailable Unavailable Dayne SERRANO MD Unavailable Unavailable Dayne SERRANO MD Unavailable Unavailable Dayne SERRANO MD Unavailable Unavailable Dayne SERRANO MD Unavailable Unavailable Dayne SERRANO MD Unavailable Unavailable Dayne SERRANO MD Unavailable Unavailable Dayne SERRANO MD Unavailable Unavailable Dayne SERRANO MD Unavailable Unavailable Dayne SERRANO MD Unavailable Unavailable Dayne SERRANO MD Unavailable Unavailable Dayne SERRANO MD Unavailable Unavailable Dayne SERRANO MD Unavailable Unavailable Dayne SERRANO MD Unavailable Unavailable Dayne SERRANO MD Unavailable Unavailable NEYMAROHDayne Montalvo MD Unavailable Unavailable Dayne SERRANO MD Unavailable Unavailable NEYMAROHDayne Montalvo MD Unavailable Unavailable Fish, J Eber Unavailable Unavailable Fish, J Eber Unavailable Unavailable Fish, J Eber Unavailable Unavailable Fish, J Eber Unavailable Unavailable Fish, J Eber Unavailable Unavailable Fish, J Eber Unavailable Unavailable Fish, J Eber Unavailable Unavailable Fish, J Eber Unavailable Unavailable Fish, J Eber Unavailable Unavailable Fish, J Eber Unavailable Unavailable Fish, J Eber Unavailable Unavailable Fish, J Eber Unavailable Unavailable Fish, J Eber Unavailable Unavailable Fish, J Eber Unavailable Unavailable Fish, J Eber Unavailable Unavailable Fish, J Eber Unavailable Unavailable Fish, J Eber Unavailable Unavailable Fish, J Eber Unavailable Unavailable Fish, J Eber Unavailable Unavailable Fish, J Eber Unavailable Unavailable Fish, J Eber Unavailable Unavailable Fish, J Eber Unavailable Unavailable Fish, J Eber Unavailable Unavailable Fish, J Eber Unavailable Unavailable Fish, J Eber Unavailable Unavailable Fish, J Eber Unavailable Unavailable Fish, J Eber Unavailable Unavailable Fish, J Eber Unavailable Unavailable Fish, J Eber Unavailable Unavailable Fish, J Eber Unavailable Unavailable Fish, J Eber Unavailable Unavailable Fish, J Eber Unavailable Unavailable Fish, J Eber Unavailable Unavailable Fish, J Eber Unavailable Unavailable Fish, J Eber Unavailable Unavailable Fish, J Eber Unavailable Unavailable Fish, J Eber Unavailable Unavailable Fish, J Eber Unavailable Unavailable Fish, J Eber Unavailable Unavailable Fish, J Eber Unavailable Unavailable Fish, J Eber Unavailable Unavailable Fish, J Eber Unavailable Unavailable Fish, J Eber Unavailable Unavailable Fish, J Eber Unavailable Unavailable Fish, J Eber Unavailable Unavailable Fish, J Eber Unavailable Unavailable Fish, J Eber Unavailable Unavailable Fish, J Eber Unavailable Unavailable Fish, J Eber Unavailable Unavailable Fish, J Eber Unavailable Unavailable Fish, J Eber Unavailable Unavailable Fish, J Eber Unavailable Unavailable Fish, J Eber Unavailable Unavailable Fish, J Eber Unavailable Unavailable Fish, J Eber Unavailable Unavailable Fish, J Eber Unavailable Unavailable Fish, J Eber Unavailable Unavailable Fish, J Eber Unavailable Unavailable Fish, J Eber Unavailable Unavailable Fish, J Eber Unavailable Unavailable Fish, J Eber Unavailable Unavailable Fish, J Eber Unavailable Unavailable Fish, J Eber Unavailable Unavailable Fish, J Eber Unavailable Unavailable Fish, J Eber Unavailable Unavailable Fish, J Eber Unavailable Unavailable Fish, J Eber Unavailable Unavailable Fish, J Eber Unavailable Unavailable Fish, J Eber Unavailable Unavailable Fish, J Eber Unavailable Unavailable Fish, J Eber Unavailable Unavailable Fish, J Eber Unavailable Unavailable Fish, J Eber Unavailable Unavailable Fish, J Eber Unavailable Unavailable Fish, J Eber Unavailable Unavailable Fish, J Eber Unavailable Unavailable Fish, J Eber Unavailable Unavailable Fish, J Eber Unavailable Unavailable Fish, J Eber Unavailable Unavailable Fish, J Eber Unavailable Unavailable Fish, J Eber Unavailable Unavailable Fish, J Eber Unavailable Unavailable Fish, J Eber Unavailable Unavailable Fish, J Eber Unavailable Unavailable Fish, J Eber Unavailable Unavailable Re-disclosure Warning The records that you are about to access may contain information from federally-assisted alcohol or drug abuse programs. If such information is present, then the following federally mandated warning applies: This information has been disclosed to you from records protected by federal confidentiality rules (42 CFR part 2). The federal rules prohibit you from making any further disclosure of this information unless further disclosure is expressly permitted by the written consent of the person to whom it pertains or as otherwise permitted by 42 CFR part 2. A general authorization for the release of medical or other information is NOT sufficient for this purpose. The Federal rules restrict any use of the information to criminally investigate or prosecute any alcohol or drug abuse patient.The records that you are about to access may contain highly sensitive health information, the redisclosure of which is protected by Article 27-F of the [facility] Public Health law. If you continue you may have access to information: Regarding HIV / AIDS; Provided by facilities licensed or operated by the [facility] Office of Mental Health; or Provided by the [facility] Office for People With Developmental Disabilities. If such information is present, then the following [facility] mandated warning applies: This information has been disclosed to you from confidential records which are protected by state law. State law prohibits you from making any further disclosure of this information without the specific written consent of the person to whom it pertains, or as otherwise permitted by law. Any unauthorized further disclosure in violation of state law may result in a fine or fdc sentence or both. A general authorization for the release of medical or other information is NOT sufficient authorization for further disc losure. Allergies and Adverse Reactions Type Description Substance Reaction Status Data Source(s ) No Known Environmental Allergies No Known Environmental Al lergies [facility] No Known Food Allergies No Known Food Allergies [facility] Drug allergy oxybutynin oxybutynin ITCHING, RASH [facility] [id number] [place] [address] Family History Family Member Name Family Member Gender Family Member Status Date o f Status Description Data Source(s) Unknown Unknown Problem [facility] ([facility] Aunts and uncles Encounters Encounter Providers Location Date Indications Data Source(s ) Outpatient Attender: Romy Patten MS, Marcio t: Eber Conway 04/10/2021 11:28:00 AM EDT - 04/10/2021 12:28:00 PM EDT [facility] Patient discharged. Outpatient Attender: Eber Conway [facility] 04/05/2021 10:30:0 0 AM EDT [facility] ([facility] Outpatient Attender: Romy Patten MS, Marcio t: Eber Conway 04/04/2021 04:47:00 PM EDT - 04/04/2021 05:47:00 PM EDT [facility] Outpatient Attender: FIDEL MARSHALL MDConsultant: Eber Conway 03/27/2021 12:00:00 PM EDT - 03/27/2021 02:18:00 PM EDT [facility] Patient discharged. Outpatient Attender: Romy Patten MS, Marcio t: Eber Conway 03/25/2021 08:57:00 AM EDT - 03/25/2021 09:57:00 AM EDT [facility] Patient discharged. Outpatient Attender: FIDEL MARSHALL MDConsultant: Eber Conway 03/19/2021 02:00:00 PM EDT - 03/19/2021 02:00:00 PM EDT [facility] Outpatient Attender: Romy Patten MS, RPAMisael pascal 03/19/2021 02:00:00 PM EDT [facility] ([facility] Outpatient Attender: FIDEL MARSHALL MDConsultant: Eber Man 02/20/2021 10:08:00 AM EDT - 02/20/2021 10:08:00 AM EDT [facility] Outpatient Attender: FIDEL MARSHALL MD [facility] 02/13/2021 03:15:0 0 PM EDT [facility] ([facility]) Outpatient Attender: FIDEL MARSHALL MDConsultant: Eber Conway 02/13/2021 02:50:00 PM EDT - 02/13/2021 02:50:00 PM EDT [facility] Outpatient Attender: FIDEL MARSHALL MDConsultant: Eber Conway 01/18/2021 07:45:00 AM EDT - 01/18/2021 11:45:00 AM EDT [facility] Patient discharged. Outpatient Attender: Romy Patten MS, RPA-CConsnathan t: Eber Conway 01/14/2021 11:29:00 AM EDT - 01/14/2021 12:29:00 PM EDT [facility] Patient discharged. Outpatient Attender: Eber [facility] 01/02/2021 01:45:0 0 PM EDT [facility] ([facility] Outpatient Attender: FIDEL MARSHALL MDConsultant: Eber Conway 12/25/2020 01:43:00 PM EDT - 12/25/2020 01:43:00 PM EDT [facility] Outpatient Attender: KELLEE ORANTES [facility] 11/2020 03:30:00 PM EDT [facility] ([facility] Outpatient Attender: Eber Man [facility] 11/30/2020 01:30:0 0 PM EDT [facility] ([facility] Outpatient Attender: KELLEE ORANTES [facility] 06/2020 03:30:00 PM EDT [facility] ([facility] Outpatient Attender: FIDEL MARSHALL MDConsultant: Eber Conway 10/19/2020 07:30:00 AM EDT - 10/19/2020 10:18:00 AM EDT [facility] Patient discharged. Outpatient Attender: Romy Patten MS, RPA-CConsultan t: Eber Conway 10/15/2020 10:04:00 AM EDT - 10/15/2020 11:04:00 AM EDT [facility] Patient discharged. Outpatient Attender: Eber Conway [facility] 10/03/2020 02:00:0 0 PM EDT [facility] ([facility] Outpatient Attender: FIDEL MARSHALL MDConsultant: Eber Conway 10/03/2020 01:37:00 PM EDT - 10/03/2020 01:37:00 PM EDT [facility] 01:20:0 0 PM EST [facility] ([facility] Outpatient Attender: FIDEL MARSHALL MDConsultant: Eber Conway 07/27/2020 07:15:00 AM EST - 07/27/2020 10:10:00 AM EST [facility] Patient discharged. Outpatient Attender: Romy Patten MS, RPA-CConsultan t: Eber Conway 07/23/2020 12:08:00 PM EST - 07/23/2020 01:08:00 PM EST [facility] Patient discharged. [facility] 01:00:0 0 PM EST [facility] ([facility] Outpatient Attender: [facility] 07/02/2020 12:15:0 0 PM EST [facility] ([facility] Outpatient Attender: FIDEL MARSHALL MDConsultant: Eber Conway 06/26/2020 01:41:00 PM EST - 06/26/2020 01:41:00 PM EST [facility] Outpatient Attender: FIDEL MARSHALL MD [facility] 06/26/2020 12:30:0 0 PM EST [facility] ([facility]) Inpatient Attender: LUISITO CRAMER MDA ttender: Nancy Brooks MDAttender: TIFFANY Belcher MDAdmitter: TIFFANY Belcher MDReferrer: TIFFANY Belcher MDConsultant: Narayan Clifton JrConsultant: DEEPALI SERRANO MD [id number] 06/14/2020 12:00 :00 AM EST - 06/20/2020 06:16:00 PM EST Unspecified hydronephrosis [facility] Unspecified hydronephrosis Patient discharged. Outpatient Attender: Nancy Brooks MDReferrer: Ruchi Brooks MD 06/14/2020 12:00:00 AM [facility] Outpatient Attender: YASH FLOYD MD Referrer: YASH FLOYD MDConsultant: Eber Conway 05/30/2020 01:37:00 PM EST - 05/30/2020 01:47:00 PM [facility] Patient discharged. Outpatient Attender: FIDELSIMONE MARSHALL MDConsultant: Eber Conway 05/23/2020 08:48:00 AM EST - 05/23/2020 08:48:00 AM [facility] Outpatient Attender: FIDEL MARSHALL MDConsultant: Eber Conway 05/22/2020 01:52:00 PM EST - 05/22/2020 01:52:00 PM EST [facility] Outpatient Attender: JAYNE SOTOMAYOR DPMConsultant: Eber Browning h 05/22/2020 01:05:00 PM EST - 05/22/2020 01:05:00 PM [facility] Outpatient Attender: Romy Patten MS, RPA-CConsnathan t: Eber Conway 05/21/2020 10:23:30 AM EST - 05/28/2020 10:18:00 AM [facility] Patient discharged. Outpatient Attender: Romy Patten MS, RPA-CConsnathan t: Eber Conway 05/18/2020 05:40:00 PM EST - 05/18/2020 06:40:00 PM [facility] Outpatient Attender: Eber Man [facility] 05/02/2020 01:40:0 0 PM EST [facility] ([facility] Outpatient Attender: FIDEL MARSHALL MDConsultant: Eber Conway 04/25/2020 02:15:00 PM EST - 04/25/2020 02:15:00 PM [facility] Outpatient Attender: FIDEL MARSHALL MDConsultant: Eber Conway 04/04/2020 08:13:00 AM EDT - 04/04/2020 09:13:00 AM EDT [facility] Patient discharged. Outpatient Attender: Eber [facility] 03/28/2020 02:00:0 0 PM EDT [facility] ([facility] Emergency Attender: EDGAR VERA MDConsultant: Eber Tierney 03/28/2020 12:54:00 PM EDT - 03/28/2020 01:57:00 PM EDT [facility] Patient discharged. Outpatient Attender: FIDEL MARSHALL MD [facility] 03/27/2020 02:30:0 0 PM EDT [facility] ([facility]) Outpatient Attender: FIDEL GEORGESJEANETH MDConsultant: Eber Conway 03/27/2020 02:19:00 PM EDT - 03/27/2020 02:19:00 PM EDT [facility] Outpatient Attender: Romy Perkins i, MS, RPA-CAttender: FIDEL MARSHALL MDConsultant: Eber Conway 02/29/2020 11:04:00 AM EDT - 02/29/2020 11:04:00 AM EDT [facility] Outpatient Attender: Romy Perkins i, MS, RPA-CAttender: FIDEL MARSHALL MDConsultant: Eber Conway 02/14/2020 01:03:00 PM EDT - 02/14/2020 01:03:00 PM EDT [facility] Outpatient Attender: FIDEL MARSHALL MDConsultant: Eber Conway 01/31/2020 01:01:00 PM EDT - 01/31/2020 01:01:00 PM EDT [facility] Outpatient Attender: FIDEL MARSHALL MDConsultant: Eber Conway 10/19/2019 06:25:05 PM EDT [facility] Immunizations Vaccine Date Status Description Data Source(s) New in 2012. IIV4 03/26/2021 04:12:00 PM EDT completed [facility] ([facility] COVID-19 VACCINE Pfizer 11/30/2020 12:00:00 AM EDT completed [place] Vaccine Series Complete: YESThis Data wa s Submitted to [facility] [employer] [facility]. COVID-19 VACC, MRNA(PFIZER)/PF 11/30/2020 12:00:00 AM EDT completed [facility] COVID-19 VACC, MRNA(PFIZER)/PF 11/09/2020 12:00:00 AM EDT completed [facility] COVID-19 VACCINE Pfizer 11/09/2020 12:00:00 AM EDT completed [place] Vaccine Series Complete: NOThis Data was Submitted to [facility] [employer]. Medications Medication Brand Name Start Date Product Form Dose Route Admi nistrative Instructions Pharmacy Instructions Status Indications Reaction Description Data Source(s) 50 mg 04/24/2021 12:00:00 AM EST tablet 90 TAKE 1 AB BY MOUTH THREE TIMES A DAY MAXIMUM DAILY DOSE = 3 TAKE 1 AB BY MOUTH THREE TIMES A DAY MAX IMUM DAILY DOSE = 3 SOLD: 04/24/2021 [facility] Atropine Sulfate 0.025 MG / Diphenoxylat e Hydrochloride 2.5 MG Oral Tablet [Lomotil] Lomotil 04/04/2021 12:00:00 AM EDT ORAL activ e [facility] ([facility] 25 mg 04/04/2021 12:00:00 AM EDT tablet 30 TAKE ONE TABLET BY MOUTH EVERY DAY AT BEDTIME TAKE ONE TABLET BY MOUTH EVERY DAY AT BEDTIME SOLD: 04/04/2021 [facility] Atropine Sulfate 0.025 MG / Diphenoxylat e Hydrochloride 2.5 MG Oral Tablet 2.5- 0.025 mg DIPHENOXYLATE HCL/ATROPINE 04/04/2021 12:00:00 AM EDT tablet 30 TAKE ONE TABLET BY MOUTH EVERY DAY NEEDED FOR DIARRHEA MAXIMUM DAILY DOSE = 1 TAKE ONE TABLET BY MOUTH EVERY DAY NEEDED FOR DIARRHEA MAXIMUM DAILY DOSE = 1 SOLD: 04/04/2021 [facility] 500 mg 03/27/2021 12:00:00 AM EDT tablet 8 TAKE ONE TABLET BY MOUTH TWICE A DAY FOR 4 DAYS TAKE ONE TABLET BY MOUTH TWICE A DAY FOR 4 DAYS SOLD: 2020 [facility] 50 mg 03/07/2021 12:00:00 AM EDT tablet 90 TAKE ONE TABLET BY MOUTH THREE TIMES A DAY MAXIMUM DAILY DOSE = 3 TAKE ONE TABLET BY MOUTH THREE TIMES A D AY MAXIMUM DAILY DOSE = 3 SOLD: 03/09/2021 [facility] 500 mg 02/13/2021 12:00:00 AM EDT tablet 14 TAKE ONE TABLET BY MOUTH TWICE A DAY TAKE ONE TABLET BY MOUTH TWICE A DAY SOLD: 02/28/2021 [facility] 500 mg 02/13/2021 12:00:00 AM EDT tablet 14 TAKE ONE TABLET BY MOUTH TWICE A DAY TAKE ONE TABLET BY MOUTH TWICE A DAY SOLD: 03/21/2021 [facility] 500 mg 02/13/2021 12:00:00 AM EDT tablet 14 TAKE ONE TABLET BY MOUTH TWICE A DAY TAKE ONE TABLET BY MOUTH TWICE A DAY SOLD: 02/20/2021 [facility] 500 mg 02/13/2021 12:00:00 AM EDT tablet 14 TAKE ONE TABLET BY MOUTH TWICE A DAY TAKE ONE TABLET BY MOUTH TWICE A DAY SOLD: 03/07/2021 [facility] 500 mg 02/13/2021 12:00:00 AM EDT tablet 14 TAKE ONE TABLET BY MOUTH TWICE A DAY TAKE ONE TABLET BY MOUTH TWICE A DAY SOLD: 03/13/2021 [facility] 500 mg 02/13/2021 12:00:00 AM EDT tablet 14 TAKE ONE TABLET BY MOUTH TWICE A DAY TAKE ONE TABLET BY MOUTH TWICE A DAY SOLD: 02/13/2021 [facility] Ciprofloxacin 500 MG Oral Tablet [Cipro] Cipro 02/13/2021 12:00: 00 AM EDT ORAL active [facility] ([facility]) 50 mg 01/22/2021 12:00:00 AM EDT tablet 90 TAKE ONE TABLET BY MOUTH THREE TIMES A DAY MAXIMUM DAILY DOSE = 3 TAKE ONE TABLET BY MOUTH THREE TIMES A D AY MAXIMUM DAILY DOSE = 3 SOLD: 01/23/2021 [facility] 500 mg 01/18/2021 12:00:00 AM EDT tablet 8 TAKE 1 TABLET BY MOUTH TWICE A DAY FOR 4 DAYS TAKE 1 TABLET BY MOUTH TWICE A DAY FOR 4 DAYS SOLD: 01/28/2021 [facility] 25 mg 01/07/2021 12:00:00 AM EDT tablet 30 TAKE ONE TABLET BY MOUTH EVERY DAY BEFORE BEDTIME TAKE ONE TABLET BY MOUTH EVERY DAY BEFORE BEDTIME SOLD : 02/07/2021 [facility] 25 mg 01/07/2021 12:00:00 AM EDT tablet 30 TAKE ONE TABLET BY MOUTH EVERY DAY BEFORE BEDTIME TAKE ONE TABLET BY MOUTH EVERY DAY BEFORE BEDTIME SOLD : 01/09/2021 [facility] Cephalexin 500 MG Oral Capsule [Keflex] Keflex 01/02/2021 12:00:0 0 AM EDT ORAL completed [facility] ([facility] Cephalexin 500 MG Oral Capsule CEPHALEXIN 01/02/2021 12:00:00 AM EDT capsule 30 TAKE ONE CAPSULE BY MOUTH THREE TIMES A DAY FOR 10 DAY S FOR UTI TAKE ONE CAPSULE BY MOUTH THREE TIMES A DAY FOR 10 DAYS FOR UTI SOLD: 01/03/2021 [facility] 20 mg 12/27/2020 12:00:00 AM EDT tablet 7 TAKE ONE TABLET BY MOUTH EVERY DAY FOR 7 DAYS - TAKE WITH FOOD TAKE ONE TABLET BY MOUTH EVERY DAY FOR 7 DAYS - TAKE WITH FOOD SOLD: 12/27/2020 [facility] Prednisone 5 MG Oral Tablet Prednisone 12/27/2020 12:00:00 AM EDT completed [facility] ([facility] 20 mg 12/27/2020 12:00:00 AM EDT tablet 7 TAKE ONE TABLET BY MOUTH EVERY DAY FOR 7 DAYS - TAKE WITH FOOD TAKE ONE TABLET BY MOUTH EVERY DAY FOR 7 DAYS - TAKE WITH FOOD SOLD: 01/02/2021 [facility] Prednisone 20 MG Oral Tablet Prednisone 12/26/2020 12:00:00 AM EDT ORAL completed [facility] ([facility] 50 mg 12/07/2020 12:00:00 AM EDT tablet 90 TAKE ONE TABLET BY MOUTH THREE TIMES A DAY MAXIMUM DAILY DOSE = 3 TAKE ONE TABLET BY MOUTH THREE TIMES A D AY MAXIMUM DAILY DOSE = 3 SOLD: 12/09/2020 [facility] Levofloxacin 250 MG Oral Tablet Levofloxacin 11/30/2020 12:00:00 AM E DT ORAL completed [facility] ([facility] 250 mg 11/30/2020 12:00:00 AM EDT tablet 7 TAKE ONE TABLET BY MOUTH EVERY DAY TAKE ONE TABLET BY MOUTH EVERY DAY SOLD: 11/30/2020 [facility] 4 mg 11/29/2020 12:00:00 AM EDT tablet 30 TAKE ONE TABLET BY MOUTH EVERY 8 HOURS NEEDED FOR NAUSEA TAKE ONE TABLET BY MOUTH EVERY 8 HOURS A S NEEDED FOR NAUSEA SOLD: 11/29/2020 [facility] Ondansetron 4 MG Oral Tablet Ondansetron HCL 11/29/2020 12:00:00 AM E DT ORAL active [facility] ([facility] pantoprazole 40 MG Delayed Release Oral Tablet PANTOPRAZOLE SODIUM 10/03/2020 12:00:00 AM EDT tablet,delayed release (DR/EC) 90 T LEEROY ONE TABLET BY MOUTH EVERY DAY TAKE ONE TABLET BY MOUTH EVERY DAY SOLD: 04/11/2021 [facility] pantoprazole 40 MG Delayed Release Oral Tablet PANTOPRAZOLE SODIUM 10/03/2020 12:00:00 AM EDT tablet,delayed release (DR/EC) 90 T LEEROY ONE TABLET BY MOUTH EVERY DAY TAKE ONE TABLET BY MOUTH EVERY DAY SOLD: 01/11/2021 [facility] pantoprazole 40 MG Delayed Release Oral Tablet [Protonix] Pr otonix 10/03/2020 12:00:00 AM EDT ORAL active M [facility]ENT ([facility] 25 mg 10/02/2020 12:00:00 AM EDT tablet 30 TAKE ONE TABLET BY MOUTH AT BEDTIME TAKE ONE TABLET BY MOUTH AT BEDTIME SOLD: 10/03/2020 [facility] 25 mg 10/02/2020 12:00:00 AM EDT tablet 30 TAKE ONE TABLET BY MOUTH AT BEDTIME TAKE ONE TABLET BY MOUTH AT BEDTIME SOLD: 12/11/2020 [facility] 25 mg 10/02/2020 12:00:00 AM EDT tablet 30 TAKE ONE TABLET BY MOUTH AT BEDTIME TAKE ONE TABLET BY MOUTH AT BEDTIME SOLD: 10/30/2020 [facility] BLOOD SUGAR DIAGNOSTIC 09/06/2020 12:00:00 AM EDT strip 100 USE ONCE DAILY AND NEEDED USE ONCE DAILY AND NEEDED SOLD: 09/06/2020 [facility] 25 mg 08/28/2020 12:00:00 AM EDT tablet 30 TAKE ONE TABLET BY MOUTH AT BEDTIME TAKE ONE TABLET BY MOUTH AT BEDTIME SOLD: 08/30/2020 [facility] 50 mg 08/28/2020 12:00:00 AM EDT tablet 90 TAKE ONE TABLET BY MOUTH THREE TIMES A DAY TAKE ONE TABLET BY MOUTH THREE TIMES A DAY SOLD: 08/30/2020 [facility] Famotidine 40 MG Oral Tablet FAMOTIDINE 08/01/2020 12:00:00 AM EST tab let 90 TAKE ONE TABLET BY MOUTH EVERY DAY TAKE ONE TABLET BY MOUTH EVERY DAY SOLD: 08/08/2020 [facility] Famotidine 40 MG Oral Tablet [Pepcid] Pepcid 08/01/2020 12:00:00 AM EST ORAL completed [facility] ([facility] 50 mg 07/26/2020 12:00:00 AM EST tablet 60 TAKE ONE TABLET BY MOUTH TWICE A DAY, MAXIMUM DAILY DOSE = 2 TAKE ONE TABLET BY MOUTH TWICE A DAY, HUMBERTO GANDARA DAILY DOSE = 2 SOLD: 07/28/2020 [facility] Magnesium Oxide 400 MG Oral Tablet Magne sium Oxide 400 (241.3 Mg) MG Oral Tablet (MAG-OX) Magnesium Oxide 400 (241.3 Mg) MG Oral Tablet (MAG-OX) 06/21/2020 12:00:00 AM EST 400 mg Oral active Take 1 t ablet by mouth daily [facility] Magnesium Oxide 400 MG Oral Tablet Magnesium Oxide (MA G-OX) tablet 400 mg Magnesium Oxide (MAG-OX) tablet 400 mg 06/20/2020 10:00:00 AM EST 4 00 mg Oral active 400 mg, Oral, D aily Standard, First dose on Thu06/20/20 at 1000, For 30 days [facility] Medication administered onsite POLYETHYLENE GLYCOL 3350 142 MG/ML Oral Solution polyethylene glycol (MIRALAX) packet 17 g polyethylene glycol (MIRALAX) packet 17 g 06/20/2020 0 9:00:00 AM EST 17 g Oral active 17 g, Or al, Daily Standard, First dose (after last modification) on Thu06/20/20 at 0900, For 29 doses
Mix in 8 ounces of water, juice or milk. Avoid use in patients who require thickened liquids due to p otential increased risk for aspiration.
[facility] Medication administered onsite 400 mg (241.3 mg magnesium) 06/20/2020 12:00:00 AM EST table t 30 TAKE ONE TABLET BY MOUTH EVERY DAY TAKE ONE TABLET BY MOUTH EVERY DAY SOLD: 06/20/2020 [facility] heparin (porcine) 5000 UNIT/ML injection 5,000 Units [id number] 47-10 06/19/2020 05:00:00 PM EST 5000 U Subcutaneous active 5,000 Units, Subcutaneous, Three Times Daily Standard, First dose on Thu06/19/20 at 1700, For 30 days [facility] Medication administered onsite sennosides, LONGTERM 8.6 MG Oral Tablet senna tablet 2 tablet sen na tablet 2 tablet 06/19/2020 12:30:00 PM EST 2 {tbl} Oral active 2 tablet, Oral, Nightly, First dose on Thu06/19/20 at 1230, For 30 days [facility] Medication administered onsite POLYETHYLENE GLYCOL 3350 142 MG/ML Oral Solution polyethylene glycol (MIRALAX) packet 17 g polyethylene glycol (MIRALAX) packet 17 g 06/19/2020 1 2:30:00 PM EST 17 g Oral aborted 17 g, Or al, Daily Standard, First dose on Thu06/19/20 at 1230, For 30 days
Mix in 8 ounces of water, juice or milk. Avoid use in patients who require thickened liquids due to potential increased risk for aspiration.
[facility] Medication administered onsite NaCl infusion 0.9 % 6311-4046-94 06/18/2020 09:45:00 PM EST Intravenous aborted at 75 mL/hr, Intrave nous, Continuous, Starting Thu06/18/20 at 2145, For 30 days [facility] Medication administered onsite Sodium Bicarbonate 650 MG Oral Tablet sodium bicarbona te tablet 1,300 mg sodium bicarbonate tablet 1,300 mg 06/18/2020 09:00:00 PM EST 1300 mg Oral active 1,300 mg, Oral, 2 Ti mes Daily, First dose (after last modification) on Thu06/18/20 at 2100, For 30 days [facility] Medication administered onsite dextrose 5 % and sodium chloride 0.45 % infusion 4465-3181-0 0 06/18/2020 12:15:00 PM EST Intravenous aborted at 100 mL/hr, Intravenous, Continuous, Starting Thu06/18/20 at 1215, For 1 day [facility] Medication administered onsite Hydroxyzine Hydrochloride 25 MG Oral Tablet hydrOXYzin e (ATARAX) tablet 25 mg hydrOXYzine (ATARAX) tablet 25 mg 06/18/2020 12:15:00 PM EST 25 mg Oral completed 25 mg, Oral, Once, Thu06/18/20 at 1215, For 1 dose [facility] Medication administered onsite pantoprazole 40 MG Delayed Release Oral Tablet pantoprazole (PROTONIX) EC tablet 40 mg pantoprazole (PROTONIX) EC tablet 40 mg 06/18/2020 12:15:[address] 40 mg Oral active 40 mg, Ora l, Daily Standard, First dose on Thu06/18/20 at 1215, For 30 days
Do not crush or chew
[facility] Medication administered onsite Acetaminophen 325 MG Oral Tablet acetaminophen (TYLENO L) tablet 650 mg acetaminophen (TYLENOL) tablet 650 mg 06/18/2020 12:09:26 PM EST 65 0 mg Oral active 650 mg, Oral, E very 6 hours PRN, Mild Pain (Pain Scale Score 1- 3), Starting Thu06/18/20 at 1209, For 30 days
Maximum daily dose of acetaminophen is 3,000 mg from all sources in 24 hours.
[facility] Medication administered onsite dextrose 5 % and sodium chloride 0.45 % infusion 1196-6629-0 0 06/17/2020 11:15:00 AM EST Intravenous completed at 100 mL/hr, Intravenous, Continuous, Starting 06/17/20 at 1115, For 1 day [facility] Medication administered onsite 50 ML Magnesium Sulfate 40 MG/ML Injecti on magnesium sulfate infusion 2 g/50 mL (premix) magnesium sulfate infusion 2 g/50 mL (premix) 06/17/19 05:00:00 AM EST 2 g Intravenous completed 2 g, Intravenous, Administer over 60 Minutes, Once, 06/17/20 at 0500, For 1 dose [facility] Medication administered onsite 50 ML Magnesium Sulfate 40 MG/ML Injecti on magnesium sulfate infusion 2 g/50 mL (premix) magnesium sulfate infusion 2 g/50 mL (premix) 06/17/19 01:00:00 AM EST 2 g Intravenous completed 2 g, Intravenous, Administer over 60 Minutes, Once, 06/17/20 at 0100, For 1 dose
Over 2 hours
[facility] Medication administered onsite dextrose 5 % and sodium chloride 0.45 % infusion 6600-3892-0 0 06/16/2020 03:00:00 PM EST Intravenous completed at 100 mL/hr, Intravenous, Continuous, Starting 06/16/20 at 1500, For 18 hours [facility] Medication administered onsite Sodium Bicarbonate 325 MG Oral Tablet sodium bicarbona te tablet 1,300 mg sodium bicarbonate tablet 1,300 mg 06/16/2020 09:00:00 AM EST 1300 mg Oral aborted 1,300 mg, Oral, Thre e Times Daily Standard, First dose on 06/16/20 at 0900, For 30 days [facility] Medication administered onsite dextrose 5 % and sodium chloride 0.45 % infusion 0058-8264-0 0 06/16/2020 04:00:00 AM EST Intravenous completed at 100 mL/hr, Intravenous, Continuous, Starting Thu06/16/20 at 0400, For 10 hours [facility] Medication administered onsite magnesium sulfate in dextrose 5 % infusion (premix) 1 g 0409 -[id number] 06/16/2020 01:15:00 AM EST 1 g Intravenous completed 1 g, Intravenous, Administer over 60 Minutes, Once, 06/16/20 at 0115, For 1 dose [facility] Medication administered onsite dextrose 5 % and sodium chloride 0.45 % infusion 7754-2886-0 0 06/15/2020 07:15:00 PM EST Intravenous completed at 100 mL/hr, Intravenous, Continuous, Starting Thu06/15/20 at 1915, For 10 hours [facility] Medication administered onsite dextrose 5 % and sodium chloride 0.45 % infusion 0707-3209-0 0 06/15/2020 02:45:00 PM EST Intravenous completed at 100 mL/hr, Intravenous, Continuous, Starting Thu06/15/20 at 1445, For 10 hours [facility] Medication administered onsite insulin lispro (HumaLOG) injection LOW DOSE EATING INS ULIN patients 1-8 Units [id number] 06/15/2020 01:00:00 PM EST U Subcutaneous active 1-8 Units, Subcutaneous, Three Times Daily-With Meals, First dose on Thu06/15/20 at 1300, For 30 days
Nursing MUST open the 'SQ Insulin Dosing Charts' Sidebar Report, or, the Patient Summary or Summary Report within the ED.
[facility] Medication administered onsite dextrose 5 % and sodium chloride 0.45 % infusion [id number] 0 06/15/2020 09:45:00 AM EST Intravenous aborted at 100 mL/hr, Intravenous, Continuous, Starting Thu06/15/20 at 0945, For 9 hours [facility] Medication administered onsite Lisinopril 2.5 MG Oral Tablet lisinopril (ZESTRIL) tab let 5 mg lisinopril (ZESTRIL) tablet 5 mg 06/15/2020 08:15:00 AM EST 5 mg Oral aborted 5 mg, Oral, Daily Standard, First dose on Thu06/15/20 at 0815, For 30 days [facility] Medication administered onsite fentaNYL (SUBLIMAZE) (PF) injection [id number] 06/14/2020 08:42:56 PM EST completed Code/Trauma Medicati on, Starting Quynh 06/14/20 at 2 [facility] Medication administered onsite sodium bicarbonate 8.4 % 1 mL in lidocaine (XYLOCAINE) 1 % 9 mL injection 06/14/2020 08:32:12 PM EST Infiltration complete d Infiltration, Code/Trauma Medication, Starting Quynh 06/14/20 at 2031 [facility] Medication administered onsite Piperacillin 3000 MG / tazobactam 375 MG Injection piperacillin-tazobactam (ZOSYN) IVPB 3.375 g (premix) piperacillin-tazobactam (ZOSYN) IVPB 3.3 75 g (premix) 06/14/2020 08:12:13 PM EST completed Administer over 4 Hours, Code/Trauma continuous Med, Starting Quynh 06/14/20 at 2012 [facility] Medication administered onsite dextrose 50 % IV solution 25 mL 06/14/2020 07:48:04 PM EST 25 mL Intravenous active [Order 1 Start ] Name: POCT glucose, docked Signed Summary: ONCE, Quynh 06/14/20 at 1949, For 1 occurrence
Does the patient have severely compromised vascular blood flow to the hands: No
Does the patient have severe hypotension requiring vasopressors: No [Order 1 End] [Order 2 Start] Name: dextrose 50 % IV solution 25 mL Signed Summary: 25 mL, Intravenous, Once PRN, Low blood sugar, blood glucose <70 mg/DL, Starting Quynh 06/14/20 at 1948, For 30 days
Not for midline administration.
[Order 2 End] [Order 3 Start] Name: POCT glucose, docked Signed Summary: EVERY 30 MIN, First occurrence on Quynh 06/14/20 at 1949, Last occurrence on Quynh 06/14/20 at 2118, For 4 occurrences
Does the patient have severely compromised vascular blood flow to the hands: No
Does the patient have severe hypotension requiring vasopressors: No [Order 3 End] [Order 4 Start] Name: POCT glucose, docked Signed Summary: EVERY 1 HOUR, First occurrence on Quynh 06/14/20 at 2149, Last occurrence on Quynh 06/14/20 at 2200, For 2 occurrences
To be started after BG fingerstick q30 minutes x4
Does the patient have severely compromised vascular blood flow to the hands: No
Does the patient have severe hypotension requiring vasopressors: No [Order 4 End] [facility] Medication administered onsite Hydralazine Hydrochloride 20 MG/ML Injec table Solution hydrALAZINE (APRESOLINE) injection 10 mg hydrALAZINE (APRESOLINE) injection 10 mg 06/14/2020 06 :20:16 PM EST 10 mg Intravenous aborted 10 m g, Intravenous, Every 6 hours PRN, Hypertension, SBP >170, Starting Quynh 06/14/20 at 1820, For 30 days
Dilute in 25-50 ml normal saline. Administer over 30 minutes.
[facility] Medication administered onsite Glucagon 1 MG Injection glucagon (human recombinant) ( GLUCAGEN) injection 1 mg glucagon (human recombinant) (GLUCAGEN) injection 1 mg 06/14/2020 05:08:00 PM EST 1 mg Intramuscular active 1 mg, Intramuscular, PRN, for glucose <55 without IV access, Starting Quynh 06/14/20 at 1708, For 30 days [facility] Medication administered onsite Glucose 0.417 MG/MG Oral Gel glucose (GLUTOSE) 40 % or al gel 15 g glucose (GLUTOSE) 40 % oral gel 15 g 06/14/2020 05:08:00 PM EST 15 g Oral active 15 g, Oral, PRN, Low blood s ugar, for gluose 55-69 mg/dl and able to take PO, Starting Quynh 06/14/20 at 1708, For 30 days [facility] Medication administered onsite 25 mg 06/12/2020 12:00:00 AM EST tablet 30 TAKE ONE TABLET BY MOUTH BEFORE BEDTIME TAKE ONE TABLET BY MOUTH BEFORE BEDTIME SOLD: 06/20/2020 [facility] 25 mg 06/12/2020 12:00:00 AM EST tablet 30 TAKE ONE TABLET BY MOUTH BEFORE BEDTIME TAKE ONE TABLET BY MOUTH BEFORE BEDTIME SOLD: 07/20/2020 [facility] 50 mg 06/11/2020 12:00:00 AM EST tablet 60 TAKE ONE TABLET BY MOUTH TWICE A DAY - MAXIMUM DAILY DOSE = 2 TAKE ONE TABLET BY MOUTH TWICE A DAY - M AXIMUM DAILY DOSE = 2 SOLD: 06/20/2020 [facility] 50 mg 05/03/2020 12:00:00 AM EST tablet 60 TAKE ONE TABLET BY MOUTH TWICE A DAY, MAXIMUM DAILY DOSE = 2 TAKE ONE TABLET BY MOUTH TWICE A DAY, MA XIMUM DAILY DOSE = 2 SOLD: 05/04/2020 [facility] 5 mg 04/06/2020 12:00:00 AM EDT tablet 15 TAKE ONE TABLET BY MOUTH EVERY DAY TAKE ONE TABLET BY MOUTH EVERY DAY SOLD: 04/07/2020 [facility] 50 mg 04/04/2020 12:00:00 AM EDT tablet 60 TAKE ONE TABLET BY MOUTH TWICE A DAY MAXIMUM DAILY DOSE = 2 TABLETS TAKE ONE TABLET BY MOUTH TWICE A DAY MAX IMUM DAILY DOSE = 2 TABLETS SOLD: 04/04/2020 [facility] 25 mg 03/30/2020 12:00:00 AM EDT tablet 30 TAKE ONE TABLET BY MOUTH AT BEDTIME TAKE ONE TABLET BY MOUTH AT BEDTIME SOLD: 04/04/2020 [facility] 25 mg 03/30/2020 12:00:00 AM EDT tablet 30 TAKE ONE TABLET BY MOUTH AT BEDTIME TAKE ONE TABLET BY MOUTH AT BEDTIME SOLD: 05/11/2020 [facility] 500 mg 03/29/2020 12:00:00 AM EDT tablet 14 TAKE ONE TABLET BY MOUTH TWICE A DAY FOR [employer]TI TAKE ONE TABLET BY MOUTH TWICE A DAY FOR [employer] UTI SOLD: 03/29/2020 [facility] Metformin hydrochloride 500 MG Oral Tablet METFORMIN HCL 03/13/2020 12:00:00 AM EDT tablet 100 TAKE ONE TABLET BY MOUTH [place] RY DAY TAKE ONE TABLET BY MOUTH EVERY DAY SOLD: 03/13/2020 [facility] 50 mg 03/06/2020 12:00:00 AM EDT tablet 60 TAKE ONE TABLET BY MOUTH TWICE A DAY - MAXIMUM DAILY DOSE = 2 TAKE ONE TABLET BY MOUTH TWICE A DAY - M AXIMUM DAILY DOSE = 2 SOLD: 03/06/2020 [facility] 25 mg 01/09/2020 12:00:00 AM EDT tablet 30 TAKE ONE TABLET BY MOUTH EVERY DAY AT BEDTIME TAKE ONE TABLET BY MOUTH EVERY DAY AT BEDTIME SOLD: 03/03/2020 [facility] Metformin hydrochloride 500 MG Oral Tabl et metFORMIN HCl 500 MG Oral Tablet (GLUCOPHAGE) metFORMIN HCl 500 MG Oral Tablet (GLUCOPHAGE) 11/16/19 12:00:00 AM EDT 500 mg Oral aborted Take 500 mg by m outh daily [facility] Lisinopril 5 MG Oral Tablet Lisinopril 5 MG Oral Table t (PRINIVIL,ZESTRIL) Lisinopril 5 MG Oral Tablet (PRINIVIL,ZESTRIL) 06/02/2019 12:00:00 AM EST 5 mg Oral aborted Take 5 mg by mouth daily [facility] Insurance Providers Payer name Policy type / Coverage type Policy ID Covered libertarian ID Covered libertarian's relationship to parr Policy Parr Plan Information MEDICARE A [id number] Self [id number] V22 Medicare Medicare Primary [id number] Self MEDICARE [id number] SP [id number] V22 MEDICARE [id number] SP [id number] A Medicare Medicare Primary [id number] Self [id number] A Medicare Medicare Primary [id number] Self [id number] Medicare Medicare Primary [id number] Self [id number] Medicare Medicare Primary [id number] Self [id number] Aarp Medigap Part B [id number] Self [id number] [employer] Medigap Part B [id number] Self [id number] [employer]arp Medigap Part B [id number] Self [id number] [employer] Medigap Part B [id number] Self [id number] [employer] Medigap Part B [id number] Self AARP U [id number] Self [id number] AARP U [id number] Self [id number] AARP HE[employer] CARE OPTIONS -O/P [id number] 18 [id number] A[employer] HE[employer] CARE OPTIONS [id number] 18 [id number] MEDICARE PART A [facility] [id number] 18 [id number] AARP HE[employer] CARE OPTIONS [id number] SP [id number] AARP HE[employer] CARE OPTIONS [id number] SP [id number] AARP O [id number] S [id number] MEDICARE C [id number] S [id number] V22 AARP HEALTHCARE OPTION [id number] 18 [id number] MEDICARE PART A -O/P [id number] 18 [id number] BCBS Medigap Part B [id number] Self [id number] BCBS Medigap Part B [id number] Self [id number] [facility] [id number] 18 [id number] MEDICARE PART A-CLINIC [id number] 18 [id number] MEDICARE -O/P [id number] 18 [id number] MEDICARE PART A -O/P [id number] 18 [id number] Problems, Conditions, and Diagnoses Code Display Name Description Problem Type Effective Dates Data Source(s) C679 Malignant neoplasm of bladder, unspecifi ed Malignant neoplasm of bladder, unspecified Diagnosis 04/10/2021 11:28:00 AM [facility] K5900 Constipation, unspecified Constipation, unspecified Di agnosis 04/10/2021 11:28:00 AM [facility] R9341 Abnormal radiologic findings on diagnostic imaging of renal pelvis, ureter, or bladder Abnormal radiologic findings on diagnost ic imaging of renal pelvis, ureter, or bladder Diagnosis 04/10/2021 11:28:00 AM [facility] [id number] Liver disease, unspecified Liver disease, unspecified Diagnosis 04/10/2021 11:28:00 AM [facility] N1330 Unspecified hydronephrosis Unspecified hydronephrosis Diagnosis 03/27/2021 12:00:00 PM [facility] Z1152 ENCOUNTER FOR SCREENING FOR COVID-19 ENCOUNTER F OR SCREENING FOR COVID-19 Diagnosis 03/25/2021 08:57:00 AM [facility] [id number] Encounter for preprocedural laboratory e xamination Encounter for preprocedural laboratory examination Diagnosis 03/25/2021 08:57:00 AM [facility] R310 Gross hematuria Gross hematuria Diagnosis 02/13/2021 02:5 0:00 PM [facility] N453 Epididymo-orchitis Epididymo-orchitis Diagnosis 02:50:00 PM [facility] Z800 Family history of malignant neoplasm of digestive organs Family history of malignant neoplasm of digestive organs Diagnosis 01/18/2021 07:45:00 A M [facility] I10 Essential (primary) hypertension Essential (primary) h ypertension Diagnosis 01/18/2021 07:45:00 AM EDT [facility] E119 Type 2 diabetes mellitus without complic ations Type 2 diabetes mellitus without complications Diagnosis 01/18/2021 07:45:00 AM EDT [facility] Z466 Encounter for fitting and adjustment of urinary device Encounter for fitting and adjustment of urinary device Diagnosis 01/18/2021 07:45:00 AM T [facility] C61 Malignant neoplasm of prostate Malignant neoplasm of p rostate Diagnosis 01/18/2021 07:45:00 AM EDT [facility] N130 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 with ureteropelvic junction obstruction Diagnosis 01/18/2021 07:45:00 AM ED [facility] Z7984 [employer] (current) use of 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 emic drugs nursing home (current) use of 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emic drugs Diagnosis 10/19/2020 07:30:00 AM 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 Diagnosis 07/27/2020 07:15:00 AM [facility] Z8546 Personal history of malignant neoplasm o f prostate Personal history of malignant neoplasm of prostate Diagnosis 07/27/2020 07:15:00 AM [facility] N401 Benign prostatic hyperplasia with lower urinary tract symptoms Benign prostatic hyperplasia with lower urinary tract symptoms Diagnosis 07/27/2020 07:15:00 AM [facility] R32 Unspecified urinary incontinence Unspecified urinary i ncontinence Diagnosis 07/27/2020 07:15:00 AM [facility] N13.30 Unspecified hydronephrosis Unspecified hydronephrosis Diagnosis 06/20/2020 06:38:38 PM [facility] severe bilateral hydroureter nephrosis, ARF severe bilateral hydroureter nephrosis, ARF Diagnosis 06/14/2020 03:49:00 PM [facility] R99 Ill-defined and unknown cause of mortali ty Ill-defined and unknown cause of mortality Diagnosis 05/28/2020 10:18:00 AM [facility] L84 Corns and callosities Corns and callosities Diagnosis 05/22/2020 01:05:00 PM [facility] J449 Chronic obstructive pulmonary disease, u nspecified Chronic obstructive pulmonary disease, unspecified Diagnosis 04/04/2020 08:13:00 AM EDT [facility] K449 Diaphragmatic hernia without obstruction or gangrene Diaphragmatic hernia without obstruction or gangrene Diagnosis 04/04/2020 08:13:00 AM EDT [facility] Y828 Other medical devices associated with ad verse incidents Other medical devices associated with adverse incidents Diagnosis 03/28/2020 12:54:0 0 PM EDT [facility] N3000 Acute cystitis without hematuria Acute cystitis without hematuria Diagnosis 03/28/2020 12:54:00 PM EDT [facility] [id number] Other mechanical complicatio n of other urinary catheter, initial encounter Other mechanical complication of other u rinary catheter, initial encounter Diagnosis 03/28/2020 12:54:00 PM EDT [facility] N13.30 Hydronephrosis Hydronephrosis Problem 02/20/2021 12:00: 00 AM EDT [facility] ([facility]) L84 Callosity Callosity Problem 11/19/2020 12:00:00 AM ED T [facility] M79.671 Pain in limb Pain in limb Problem 11/19/2020 12:00:00 A M EDT [facility] S90.851A Superficial foreign body in foot Superficial for eign body in foot Problem 11/19/2020 12:00:00 AM EDT [facility] ([facility] N13.0 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 with ureteropelvic junction obstruction Problem 10/03/2020 12:00:00 AM ED T [facility] ([facility]) [id number] Type 2 diabetes mellitus Type 2 diabetes mellitus Prob charles 05/02/2020 12:00:00 AM EST - 08/01/2020 12:00:00 AM EST [facility] ([facility] 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 Malignant ted or of urinary bladder Problem 03/27/2020 12:00:00 AM EDT [facility] ([facility]) R32 Urinary incontinence Urinary incontinence Problem 02/29/2020 12:00:00 AM EDT [facility] ([facility]) Z46.6 Encounter for fitting and adjustment of urinary device Encounter for fitting and adjustment of urinary device Problem 02/29/2020 12:00:00 AM EDT [facility] ([facility]) Surgeries/Procedures Procedure Description Date Indications Data Source(s) OFFICE OUTPATIENT VISIT 25 MINUTES 04/05/2021 12:00:00 AM EDT [facility] ([facility] OFFICE OUTPATIENT VISIT 15 MINUTES 03/19/2021 12:00:00 AM EDT [facility] ([facility]) OFFICE OUTPATIENT VISIT 15 MINUTES 02/20/2021 12:00:00 AM EDT [facility] ([facility]) OFFICE OUTPATIENT VISIT 25 MINUTES 02/13/2021 12:00:00 AM EDT [facility] ([facility]) OFFICE OUTPATIENT VISIT 10 MINUTES 02/13/2021 12:00:00 AM EDT [facility] ([facility]) OFFICE OUTPATIENT VISIT 25 MINUTES 01/02/2021 12:00:00 AM EDT [facility] ([facility] OFFICE OUTPATIENT VISIT 25 MINUTES 12/25/2020 12:00:00 AM EDT [facility] ([facility]) OFFICE OUTPATIENT VISIT 10 MINUTES 12/18/2020 12:00:00 AM EDT [facility] OFFICE OUTPATIENT VISIT 25 MINUTES 11/30/2020 12:00:00 AM EDT [facility] ([facility] OFFICE OUTPATIENT NEW 30 MINUTES 11/13/2020 12:00:00 A M EDT [facility] ([facility] OFFICE OUTPATIENT VISIT 25 MINUTES 10/03/2020 12:00:00 AM EDT [facility] ([facility]) OFFICE OUTPATIENT VISIT 25 MINUTES 10/03/2020 12:00:00 AM EDT [facility] ([facility] OFFICE OUTPATIENT VISIT 25 MINUTES 08/01/2020 12:00:00 AM EST [facility] ([facility] OFFICE OUTPATIENT VISIT 15 MINUTES 07/06/2020 12:00:00 AM EST [facility] ([facility] OFFICE OUTPATIENT VISIT 25 MINUTES 07/02/2020 12:00:00 AM EST [facility] ([facility] POCT GLUCOSE, DOCKED <td>POCT GLUCOSE, DOCKED</td ><td>Routine</td><td>06/20/2020 4:17 PM EST</td><td></td><td> </td> 06/20/2020 04:17:00 PM [facility] POCT GLUCOSE, DOCKED <td>POCT GLUCOSE, DOCKED</td ><td>Routine</td><td>06/20/2020 11:42 AM EST</td><td></td><td> </td> 06/20/2020 11:42:00 AM [facility] POCT GLUCOSE, DOCKED <td>POCT GLUCOSE, DOCKED</td ><td>Routine</td><td>06/20/2020 7:36 AM EST</td><td></td><td> </td> 06/20/2020 07:36:00 AM [facility] BLOOD COUNT COMPLETE AUTOMATED <td>CBC</td><td>Routine </td><td>06/20/2020 3:35 AM EST</td><td></td><td> </td> 06/20/2020 03:35:00 AM [facility] PHOSPHORUS INORGANIC <td>PHOSPHORUS LEVEL</td><td >Timed</td><td>06/20/2020 3:35 AM EST</td><td></td><td> </td> 06/20/2020 03:35:00 AM [facility] MAGNESIUM <td>MAGNESIUM LEVEL</td><td> Timed</td><td>06/20/2020 3:35 AM EST</td><td></td><td> </td> 06/20/2020 03:35:00 AM [facility] BASIC METABOLIC PANEL CALCIUM TOTAL <td>BASIC METABOLI C PANEL</td><td>Timed</td><td>06/20/2020 3:35 AM EST</td><td></td><td> </td> 06/20/2020 03:35:00 AM [facility] GLUCOSE QUANTITATIVE BLOOD XCPT REAGENT STRIP <td>POCT GLUCOSE, DOCKED</td><td>Routine</td><td>06/19/2020 9:40 PM EST</td><td></td><td> </td> 06/19/2020 09:40:00 PM [facility] BLOOD COUNT COMPLETE AUTO&AUTO DIFRNTL WBC COUNT <td>C BC AND DIFFERENTIAL</td><td>Routine</td><td>06/19/2020 8:40 PM EST</td><td></td><td> </td> 06/19/2020 08:40:00 PM [facility] PHOSPHORUS INORGANIC <td>PHOSPHORUS LEVEL</td><td >Timed</td><td>06/19/2020 5:34 PM EST</td><td></td><td> </td> 06/19/2020 05:34:00 PM [facility] MAGNESIUM <td>MAGNESIUM LEVEL</td><td> Timed</td><td>06/19/2020 5:34 PM EST</td><td></td><td> </td> 06/19/2020 05:34:00 PM [facility] BASIC METABOLIC PANEL CALCIUM TOTAL <td>BASIC METABOLI C PANEL</td><td>Timed</td><td>06/19/2020 5:34 PM EST</td><td></td><td> </td> 06/19/2020 05:34:00 PM [facility] GLUCOSE QUANTITATIVE BLOOD XCPT REAGENT STRIP <td>POCT GLUCOSE, DOCKED</td><td>Routine</td><td>06/19/2020 4:54 PM EST</td><td></td><td> </td> 06/19/2020 04:54:00 PM [facility] GLUCOSE QUANTITATIVE BLOOD XCPT REAGENT STRIP <td>POCT GLUCOSE, DOCKED</td><td>Routine</td><td>06/19/2020 11:28 AM EST</td><td></td><td> </td> 06/19/2020 11:28:00 AM [facility] CALCIUM IONIZED <td>CALCIUM, IONIZED</td><td >Routine</td><td>06/19/2020 7:58 AM EST</td><td></td><td> </td> 06/19/2020 07:58:00 AM [facility] GLUCOSE QUANTITATIVE BLOOD XCPT REAGENT STRIP <td>POCT GLUCOSE, DOCKED</td><td>Routine</td><td>06/19/2020 7:32 AM EST</td><td></td><td> </td> 06/19/2020 07:32:00 AM [facility] BLOOD COUNT COMPLETE AUTO&AUTO DIFRNTL WBC COUNT <td>C BC AND DIFFERENTIAL</td><td>Routine</td><td>06/19/2020 4:04 AM EST</td><td></td><td> </td> 06/19/2020 04:04:00 AM [facility] PHOSPHORUS INORGANIC <td>PHOSPHORUS LEVEL</td><td >Timed</td><td>06/19/2020 4:04 AM EST</td><td></td><td> </td> 06/19/2020 04:04:00 AM [facility] MAGNESIUM <td>MAGNESIUM LEVEL</td><td> Timed</td><td>06/19/2020 4:04 AM EST</td><td></td><td> </td> 06/19/2020 04:04:00 AM [facility] BASIC METABOLIC PANEL CALCIUM TOTAL <td>BASIC METABOLI C PANEL</td><td>Timed</td><td>06/19/2020 4:04 AM EST</td><td></td><td> </td> 06/19/2020 04:04:00 AM [facility] GLUCOSE QUANTITATIVE BLOOD XCPT REAGENT STRIP <td>POCT GLUCOSE, DOCKED</td><td>Routine</td><td>06/18/2020 9:30 PM EST</td><td></td><td> </td> 06/18/2020 09:30:00 PM [facility] GLUCOSE QUANTITATIVE BLOOD XCPT REAGENT STRIP <td>POCT GLUCOSE, DOCKED</td><td>Routine</td><td>06/18/2020 8:06 PM EST</td><td></td><td> </td> 06/18/2020 08:06:00 PM [facility] PHOSPHORUS INORGANIC <td>PHOSPHORUS LEVEL</td><td >Timed</td><td>06/18/2020 5:38 PM EST</td><td></td><td> </td> 06/18/2020 05:38:00 PM [facility] MAGNESIUM <td>MAGNESIUM LEVEL</td><td> Timed</td><td>06/18/2020 5:38 PM EST</td><td></td><td> </td> 06/18/2020 05:38:00 PM [facility] BASIC METABOLIC PANEL CALCIUM TOTAL <td>BASIC METABOLI C PANEL</td><td>Timed</td><td>06/18/2020 5:38 PM EST</td><td></td><td> </td> 06/18/2020 05:38:00 PM [facility] GLUCOSE QUANTITATIVE BLOOD XCPT REAGENT STRIP <td>POCT GLUCOSE, DOCKED</td><td>Routine</td><td>06/18/2020 4:33 PM EST</td><td></td><td> </td> 06/18/2020 04:33:00 PM [facility] GLUCOSE QUANTITATIVE BLOOD XCPT REAGENT STRIP <td>POCT GLUCOSE, DOCKED</td><td>Routine</td><td>06/18/2020 11:56 AM EST</td><td></td><td> </td> 06/18/2020 11:56:00 AM [facility] PHOSPHORUS INORGANIC <td>PHOSPHORUS LEVEL</td><td >Timed</td><td>06/18/2020 8:35 AM EST</td><td></td><td> </td> 06/18/2020 08:35:00 AM [facility] MAGNESIUM <td>MAGNESIUM LEVEL</td><td> Timed</td><td>06/18/2020 8:35 AM EST</td><td></td><td> </td> 06/18/2020 08:35:00 AM [facility] BASIC METABOLIC PANEL CALCIUM TOTAL <td>BASIC METABOLI C PANEL</td><td>Timed</td><td>06/18/2020 8:35 AM EST</td><td></td><td> </td> 06/18/2020 08:35:00 AM [facility] GLUCOSE QUANTITATIVE BLOOD XCPT REAGENT STRIP <td>POCT GLUCOSE, DOCKED</td><td>Routine</td><td>06/18/2020 7:44 AM EST</td><td></td><td> </td> 06/18/2020 07:44:00 AM [facility] US RETROPERITONEAL REAL TIME W/IMAGE COMPLETE <td>US R ENAL OR AORTA COMPLETE [id number]</td><td>Routine</td><td>06/18/2020 4:30 AM EST</td><td></td><td> </td> 06/18/2020 04:30:24 AM [facility] BLOOD COUNT COMPLETE AUTO&AUTO DIFRNTL WBC COUNT <td>C BC AND DIFFERENTIAL</td><td>Routine</td><td>06/18/2020 12:09 AM EST</td><td></td><td> </td> 06/18/2020 12:09:00 AM [facility] PHOSPHORUS INORGANIC <td>PHOSPHORUS LEVEL</td><td >Timed</td><td>06/18/2020 12:09 AM EST</td><td></td><td> </td> 06/18/2020 12:09:00 AM [facility] MAGNESIUM <td>MAGNESIUM LEVEL</td><td> Timed</td><td>06/18/2020 12:09 AM EST</td><td></td><td> </td> 06/18/2020 12:09:00 AM [facility] BASIC METABOLIC PANEL CALCIUM TOTAL <td>BASIC METABOLI C PANEL</td><td>Timed</td><td>06/18/2020 12:09 AM EST</td><td></td><td> </td> 06/18/2020 12:09:00 AM [facility] GLUCOSE QUANTITATIVE BLOOD XCPT REAGENT STRIP <td>POCT GLUCOSE, DOCKED</td><td>Routine</td><td>06/17/2020 9:11 PM EST</td><td></td><td> </td> 06/17/2020 09:11:00 PM [facility] PHOSPHORUS INORGANIC <td>PHOSPHORUS LEVEL</td><td >Timed</td><td>06/17/2020 4:37 PM EST</td><td></td><td> </td> 06/17/2020 04:37:00 PM [facility] MAGNESIUM <td>MAGNESIUM LEVEL</td><td> Timed</td><td>06/17/2020 4:37 PM EST</td><td></td><td> </td> 06/17/2020 04:37:00 PM [facility] BASIC METABOLIC PANEL CALCIUM TOTAL <td>BASIC METABOLI C PANEL</td><td>Timed</td><td>06/17/2020 4:37 PM EST</td><td></td><td> </td> 06/17/2020 04:37:00 PM [facility] GLUCOSE QUANTITATIVE BLOOD XCPT REAGENT STRIP <td>POCT GLUCOSE, DOCKED</td><td>Routine</td><td>06/17/2020 4:35 PM EST</td><td></td><td> </td> 06/17/2020 04:35:00 PM [facility] GLUCOSE QUANTITATIVE BLOOD XCPT REAGENT STRIP <td>POCT GLUCOSE, DOCKED</td><td>Routine</td><td>06/17/2020 11:40 AM EST</td><td></td><td> </td> 06/17/2020 11:40:00 AM [facility] GLUCOSE QUANTITATIVE BLOOD XCPT REAGENT STRIP <td>POCT GLUCOSE, DOCKED</td><td>Routine</td><td>06/17/2020 7:39 AM EST</td><td></td><td> </td> 06/17/2020 07:39:00 AM [facility] PHOSPHORUS INORGANIC <td>PHOSPHORUS LEVEL</td><td >Timed</td><td>06/17/2020 6:22 AM EST</td><td></td><td> </td> 06/17/2020 06:22:00 AM [facility] MAGNESIUM <td>MAGNESIUM LEVEL</td><td> Timed</td><td>06/17/2020 6:22 AM EST</td><td></td><td> </td> 06/17/2020 06:22:00 AM [facility] BASIC METABOLIC PANEL CALCIUM TOTAL <td>BASIC METABOLI C PANEL</td><td>Timed</td><td>06/17/2020 6:22 AM EST</td><td></td><td> </td> 06/17/2020 06:22:00 AM [facility] BLOOD COUNT COMPLETE AUTO&AUTO DIFRNTL WBC COUNT <td>C BC AND DIFFERENTIAL</td><td>Routine</td><td>06/17/2020 12:03 AM EST</td><td></td><td> </td> 06/17/2020 12:03:00 AM [facility] PHOSPHORUS INORGANIC <td>PHOSPHORUS LEVEL</td><td >Timed</td><td>06/17/2020 12:03 AM EST</td><td></td><td> </td> 06/17/2020 12:03:00 AM [facility] MAGNESIUM <td>MAGNESIUM LEVEL</td><td> Timed</td><td>06/17/2020 12:03 AM EST</td><td></td><td> </td> 06/17/2020 12:03:00 AM [facility] BASIC METABOLIC PANEL CALCIUM TOTAL <td>BASIC METABOLI C PANEL</td><td>Timed</td><td>06/17/2020 12:03 AM EST</td><td></td><td> </td> 06/17/2020 12:03:00 AM [facility] GLUCOSE QUANTITATIVE BLOOD XCPT REAGENT STRIP <td>POCT GLUCOSE, DOCKED</td><td>Routine</td><td>06/16/2020 9:09 PM EST</td><td></td><td> </td> 06/16/2020 09:09:00 PM [facility] PHOSPHORUS INORGANIC <td>PHOSPHORUS LEVEL</td><td >Timed</td><td>06/16/2020 6:25 PM EST</td><td></td><td> </td> 06/16/2020 06:25:00 PM [facility] MAGNESIUM <td>MAGNESIUM LEVEL</td><td> Timed</td><td>06/16/2020 6:25 PM EST</td><td></td><td> </td> 06/16/2020 06:25:00 PM [facility] BASIC METABOLIC PANEL CALCIUM TOTAL <td>BASIC METABOLI C PANEL</td><td>Timed</td><td>06/16/2020 6:25 PM EST</td><td></td><td> </td> 06/16/2020 06:25:00 PM [facility] GLUCOSE QUANTITATIVE BLOOD XCPT REAGENT STRIP <td>POCT GLUCOSE, DOCKED</td><td>Routine</td><td>06/16/2020 4:35 PM EST</td><td></td><td> </td> 06/16/2020 04:35:00 PM [facility] GLUCOSE QUANTITATIVE BLOOD XCPT REAGENT STRIP <td>POCT GLUCOSE, DOCKED</td><td>Routine</td><td>06/16/2020 12:51 PM EST</td><td></td><td> </td> 06/16/2020 12:51:00 PM [facility] PHOSPHORUS INORGANIC <td>PHOSPHORUS LEVEL</td><td >Timed</td><td>06/16/2020 12:01 PM EST</td><td></td><td> </td> 06/16/2020 12:01:00 PM [facility] MAGNESIUM <td>MAGNESIUM LEVEL</td><td> Timed</td><td>06/16/2020 12:01 PM EST</td><td></td><td> </td> 06/16/2020 12:01:00 PM [facility] BASIC METABOLIC PANEL CALCIUM TOTAL <td>BASIC METABOLI C PANEL</td><td>Timed</td><td>06/16/2020 12:01 PM EST</td><td></td><td> </td> 06/16/2020 12:01:00 PM [facility] ECHO TTHRC R-T 2D W/WOM-MODE COMPL SPEC&COLR DOP <td>E CHOCARDIOGRAM 2D COMPLETE</td><td>STAT</td><td>06/16/2020 8:43 AM EST</td><td></td><td> </td> 06/16/2020 08:43:07 AM [facility] GLUCOSE QUANTITATIVE BLOOD XCPT REAGENT STRIP <td>POCT GLUCOSE, DOCKED</td><td>Routine</td><td>06/16/2020 7:32 AM EST</td><td></td><td> </td> 06/16/2020 07:32:00 AM [facility] BLOOD COUNT COMPLETE AUTO&AUTO DIFRNTL WBC COUNT <td>C BC AND DIFFERENTIAL</td><td>Routine</td><td>06/16/2020 5:59 AM EST</td><td></td><td> </td> 06/16/2020 05:59:00 AM [facility] PHOSPHORUS INORGANIC <td>PHOSPHORUS LEVEL</td><td >Timed</td><td>06/16/2020 5:59 AM EST</td><td></td><td> </td> 06/16/2020 05:59:00 AM [facility] MAGNESIUM <td>MAGNESIUM LEVEL</td><td> Timed</td><td>06/16/2020 5:59 AM EST</td><td></td><td> </td> 06/16/2020 05:59:00 AM [facility] BASIC METABOLIC PANEL CALCIUM TOTAL <td>BASIC METABOLI C PANEL</td><td>Timed</td><td>06/16/2020 5:59 AM EST</td><td></td><td> </td> 06/16/2020 05:59:00 AM [facility] PHOSPHORUS INORGANIC <td>PHOSPHORUS LEVEL</td><td >Timed</td><td>06/16/2020 12:17 AM EST</td><td></td><td> </td> 06/16/2020 12:17:00 AM [facility] MAGNESIUM <td>MAGNESIUM LEVEL</td><td> Timed</td><td>06/16/2020 12:17 AM EST</td><td></td><td> </td> 06/16/2020 12:17:00 AM [facility] BASIC METABOLIC PANEL CALCIUM TOTAL <td>BASIC METABOLI C PANEL</td><td>Timed</td><td>06/16/2020 12:17 AM EST</td><td></td><td> </td> 06/16/2020 12:17:00 AM [facility] GLUCOSE QUANTITATIVE BLOOD XCPT REAGENT STRIP <td>POCT GLUCOSE, DOCKED</td><td>Routine</td><td>06/15/2020 8:57 PM EST</td><td></td><td> </td> 06/15/2020 08:57:00 PM [facility] PHOSPHORUS INORGANIC <td>PHOSPHORUS LEVEL</td><td >Timed</td><td>06/15/2020 5:27 PM EST</td><td></td><td> </td> 06/15/2020 05:27:00 PM [facility] MAGNESIUM <td>MAGNESIUM LEVEL</td><td> Timed</td><td>06/15/2020 5:27 PM EST</td><td></td><td> </td> 06/15/2020 05:27:00 PM [facility] BASIC METABOLIC PANEL CALCIUM TOTAL <td>BASIC METABOLI C PANEL</td><td>Timed</td><td>06/15/2020 5:27 PM EST</td><td></td><td> </td> 06/15/2020 05:27:00 PM [facility] GLUCOSE QUANTITATIVE BLOOD XCPT REAGENT STRIP <td>POCT GLUCOSE, DOCKED</td><td>Routine</td><td>06/15/2020 4:37 PM EST</td><td></td><td> </td> 06/15/2020 04:37:00 PM [facility] GLUCOSE QUANTITATIVE BLOOD XCPT REAGENT STRIP <td>POCT GLUCOSE, DOCKED</td><td>Routine</td><td>06/15/2020 2:21 PM EST</td><td></td><td> </td> 06/15/2020 02:21:00 PM [facility] GLUCOSE QUANTITATIVE BLOOD XCPT REAGENT STRIP <td>POCT GLUCOSE, DOCKED</td><td>Routine</td><td>06/15/2020 11:41 AM EST</td><td></td><td> </td> 06/15/2020 11:41:00 AM [facility] PHOSPHORUS INORGANIC <td>PHOSPHORUS LEVEL</td><td >STAT</td><td>06/15/2020 11:29 AM EST</td><td></td><td> </td> 06/15/2020 11:29:00 AM [facility] MAGNESIUM <td>MAGNESIUM LEVEL</td><td> STAT</td><td>06/15/2020 11:29 AM EST</td><td></td><td> </td> 06/15/2020 11:29:00 AM [facility] BASIC METABOLIC PANEL CALCIUM TOTAL <td>BASIC METABOLI C PANEL</td><td>STAT</td><td>06/15/2020 11:29 AM EST</td><td></td><td> </td> 06/15/2020 11:29:00 AM [facility] GLUCOSE QUANTITATIVE BLOOD XCPT REAGENT STRIP <td>POCT GLUCOSE, DOCKED</td><td>Routine</td><td>06/15/2020 7:50 AM EST</td><td></td><td> </td> 06/15/2020 07:50:00 AM [facility] GLUCOSE QUANTITATIVE BLOOD XCPT REAGENT STRIP <td>POCT GLUCOSE, DOCKED</td><td>Routine</td><td>06/15/2020 4:13 AM EST</td><td></td><td> </td> 06/15/2020 04:13:00 AM [facility] CULTURE BCT ISOL&PRSMPTV ID ISOLATE EA URINE <td>URINE SUPRAPUBIC CUL</td><td>Routine</td><td>06/15/2020 3:20 AM EST</td><td></td><td> </td> 06/15/2020 03:20:00 AM [facility] CULTURE BCT ISOL&PRSMPTV ID ISOLATE EA URINE <td>URINE SUPRAPUBIC CUL</td><td>Routine</td><td>06/15/2020 3:20 AM EST</td><td></td><td> </td> 06/15/2020 03:20:00 AM [facility] URNLS DIP STICK/TABLET REAGENT AUTO MICROSCOPY <td>URI NALYSIS WITH MICROSCOPIC</td><td>Routine</td><td>06/15/2020 3:20 AM EST</td><td></td><td> </td> 06/15/2020 03:20:00 AM [facility] URNLS DIP STICK/TABLET REAGENT AUTO MICROSCOPY <td>URI NALYSIS WITH MICROSCOPIC</td><td>Routine</td><td>06/15/2020 3:20 AM EST</td><td></td><td> </td> 06/15/2020 03:20:00 AM [facility] FIBRIN DGRADJ PRODUCTS D-DIMER QUAL/SEMIQUAN <td>D-DIM ER, QUANTITATIVE</td><td>Routine</td><td>06/15/2020 3:20 AM EST</td><td></td><td> </td> 06/15/2020 03:20:00 AM [facility] BLOOD COUNT COMPLETE AUTO&AUTO DIFRNTL WBC COUNT <td>C BC AND DIFFERENTIAL</td><td>Routine</td><td>06/15/2020 3:20 AM EST</td><td></td><td> </td> 06/15/2020 03:20:00 AM [facility] TROPONIN QUANTITATIVE <td>TROPONIN T</td><td>Timed </td><td>06/15/2020 3:20 AM EST</td><td></td><td> </td> 06/15/2020 03:20:00 AM [facility] PHOSPHORUS INORGANIC <td>PHOSPHORUS LEVEL</td><td >Routine</td><td>06/15/2020 3:20 AM EST</td><td></td><td> </td> 06/15/2020 03:20:00 AM [facility] MAGNESIUM <td>MAGNESIUM LEVEL</td><td> Routine</td><td>06/15/2020 3:20 AM EST</td><td></td><td> </td> 06/15/2020 03:20:00 AM [facility] BASIC METABOLIC PANEL CALCIUM TOTAL <td>BASIC METABOLI C PANEL</td><td>Timed</td><td>06/15/2020 3:20 AM EST</td><td></td><td> </td> 06/15/2020 03:20:00 AM [facility] GLUCOSE QUANTITATIVE BLOOD XCPT REAGENT STRIP <td>POCT GLUCOSE, DOCKED</td><td>Routine</td><td>06/15/2020 1:32 AM EST</td><td></td><td> </td> 06/15/2020 01:32:00 AM [facility] GLUCOSE QUANTITATIVE BLOOD XCPT REAGENT STRIP <td>POCT GLUCOSE, DOCKED</td><td>Routine</td><td>06/15/2020 1:03 AM EST</td><td></td><td> </td> 06/15/2020 01:03:00 AM [facility] GLUCOSE QUANTITATIVE BLOOD XCPT REAGENT STRIP <td>POCT GLUCOSE, DOCKED</td><td>Routine</td><td>06/15/2020 12:30 AM EST</td><td></td><td> </td> 06/15/2020 12:30:00 AM [facility] GLUCOSE QUANTITATIVE BLOOD XCPT REAGENT STRIP <td>POCT GLUCOSE, DOCKED</td><td>Routine</td><td>06/15/2020 12:02 AM EST</td><td></td><td> </td> 06/15/2020 12:02:00 AM [facility] TROPONIN QUANTITATIVE <td>TROPONIN T</td><td>Timed </td><td>06/14/2020 11:48 PM EST</td><td></td><td> </td> 06/14/2020 11:48:00 PM [facility] BASIC METABOLIC PANEL CALCIUM TOTAL <td>BASIC METABOLI C PANEL</td><td>Timed</td><td>06/14/2020 11:48 PM EST</td><td></td><td> </td> 06/14/2020 11:48:00 PM [facility] GLUCOSE QUANTITATIVE BLOOD XCPT REAGENT STRIP <td>POCT GLUCOSE, DOCKED</td><td>Routine</td><td>06/14/2020 11:25 PM EST</td><td></td><td> </td> 06/14/2020 11:25:00 PM [facility] GLUCOSE QUANTITATIVE BLOOD XCPT REAGENT STRIP <td>POCT GLUCOSE, DOCKED</td><td>Routine</td><td>06/14/2020 9:59 PM EST</td><td></td><td> </td> 06/14/2020 09:59:00 PM [facility] IR NEPHROSTOMY INSERTION CHANGE <td>IR NEPHROSTOMY INS ERTION CHANGE</td><td>STAT</td><td>06/14/2020 9:01 PM EST</td><td></td><td> </td> 06/14/2020 09:01:51 PM [facility] GLUCOSE QUANTITATIVE BLOOD XCPT REAGENT STRIP <td>POCT GLUCOSE, DOCKED</td><td>Routine</td><td>06/14/2020 5:44 PM EST</td><td></td><td> </td> 06/14/2020 05:44:00 PM [facility] THROMBOPLASTIN TIME PARTIAL PLASMA/WHOLE BLOOD <td>PAR TIAL THROMBOPLASTIN TIME (PTT)</td><td>Routine</td><td>06/14/2020 5:28 PM EST</td><td></td><td> </td> 06/14/2020 05:28:00 PM [facility] PROTHROMBIN TIME <td>PROTIME INR</td><td>Rout ine</td><td>06/14/2020 5:28 PM EST</td><td></td><td> </td> 06/14/2020 05:28:00 PM [facility] BLOOD COUNT COMPLETE AUTO&AUTO DIFRNTL WBC COUNT <td>C BC AND DIFFERENTIAL</td><td>Routine</td><td>06/14/2020 5:28 PM EST</td><td></td><td> </td> 06/14/2020 05:28:00 PM [facility] TROPONIN QUANTITATIVE <td>TROPONIN T</td><td>STAT< /td><td>06/14/2020 5:28 PM EST</td><td></td><td> </td> 06/14/2020 05:28:00 PM [facility] PHOSPHORUS INORGANIC <td>PHOSPHORUS LEVEL</td><td >Routine</td><td>06/14/2020 5:28 PM EST</td><td></td><td> </td> 06/14/2020 05:28:00 PM [facility] MAGNESIUM <td>MAGNESIUM LEVEL</td><td> Routine</td><td>06/14/2020 5:28 PM EST</td><td></td><td> </td> 06/14/2020 05:28:00 PM [facility] COMPREHENSIVE METABOLIC PANEL <td>COMPREHENSIVE METABO LIC PANEL</td><td>STAT</td><td>06/14/2020 5:28 PM EST</td><td></td><td> </td> 06/14/2020 05:28:00 PM [facility] COVID-19 PCR <td>COVID-19 PCR</td><td>Rou phylicia</td><td>06/14/2020 4:32 PM EST</td><td></td><td> </td> 06/14/2020 04:32:00 PM [facility] GLUCOSE QUANTITATIVE BLOOD XCPT REAGENT STRIP <td>POCT GLUCOSE, DOCKED</td><td>Routine</td><td>06/14/2020 3:55 PM EST</td><td></td><td> </td> 06/14/2020 03:55:00 PM [facility] Insert Of Temporary Indwelling Bladder Catheter,Simple 04/25/2020 12:00:00 AM EST [facility] ([facility] Insert Of Temporary Indwelling Bladder Catheter,Simple 02/29/2020 12:00:00 AM EDT [facility] ([facility]) Results ID Date Data Source [id number] 04/10/2021 02:26:00 [place] [address] PHONE: [phone] FAX: [phone] Name .................. : CALLIE Young Acct Number.................. : [id number] ROOM. ................. : Number ................... : [id number] Stay type ............. : O/P Discharge Date......... ... : 04/10/21 Admit Date ....... .. : 04/10/21 Admit Phys .................... : JANNY Date of ....... : 1935 Family Phys ................... : MAN SUAREZ Phone .................. : [phone] Age ................................ : 85 Film# .................. .:[id number] Sex ................................. : M Unsigned transcriptions are preliminary reports and do not represent a medical or legal document CT ABD & PELV W/O ORAL W/[place] [id number] COMPLETE:04/10/21 11:49 KATIA [id number] Reason for Exam: H/O BLADDER CA , MONITORING R/O METS CT ABDOMEN AND PELVIS WITHOUT IV CONTRAST INDICATION: History of urinary bladder carcinoma, follow-up. Rule out metastatic disease. COMPARISON: 04/04/2020 IV CONTRAST: None One or more of the following dose reduction techniques were utilized in effectively lowering the radiation dose for this examination: Automated Exposure Control, Adjustment of the mA and/or kV according to patient size, or Iterative reconstruction. FINDINGS: LUNG BASES: No pulmonary nodules or masses. No pleural effusions. LIVER/BILIARY: Multiple new hypodense lesions in the liver. Largest are measured on series 201 and include the following: Image 21 lateral segment left lobe 25 mm. Image 33 medial segment left lobe 22 mm. Image 30 posterior right lobe 28 mm. No abnormalities are seen in the gallbladder. The bile ducts are not dilated. SPLEEN: Punctate calcifications consistent with benign granulomata. PANCREAS: Normal. ADRENALS: Normal bilaterally. RIGHT KIDNEY: Water density cyst upper Pole 26 mm. There is a nephrostomy catheter present. No stones or hydronephrosis. Page 1 of 3 [facility] [address] [place] [address] PHONE: [phone] FAX: [phone] Name .................. : CALLIE Young Acct Number.................. : [id number] ROOM. ................. : MR Number ................... : [id number] Stay type ............. : O/P Discharge Date......... ... : 04/10/21 Admit Date ......... : 04/10/21 Admit Phys .................... : JANNY Date of ....... : 1935 Family Phys ................... : [employer] Phone .................. : [phone]/ Age ................................ : 85 Film# .................. .:[id number] Sex ................................. : M Unsigned transcriptions are preliminary reports and do not represent a medical or legal document CT ABD & PELV W/O ORAL W/[place] [id number] COMPLETE:04/10/21 11:49 KATIA [id number] Reason for Exam: H/O BLADDER CA , MONITORING R/O METS LEFT KIDNEY: Water density cyst upper pole 18 mm. There is a nephrostomy tube present. No hydronephrosis. Moderate renal atrophy. OTHER : Urinary bladder is not distended. It appears to have diffuse wall thickening. Centrally in the bladder there is a focus of high attenuation measuring 2.5 x 2.8 cm. This is likely blood. No significant abnormalities seen in the reproductive organs. BOWEL/GI: Large amount of stool throughout the colon. No obstruction. No bowel wall thickening. PERITONEUM: Trace of free fluid in the abdomen and pelvis. No focal fluid collection. No free air. NODES: Diffuse haziness in the mesentery. No definitely enlarged lymph nodes. No enlarged lymph nodes seen in the retroperitoneum. There are some mildly prominent inguinal lymph nodes measuring up to 11 mm short axis on the right and 11 mm short axis on the left. These are similar to the previous exam. Mild diffuse body wall edema. RETROPERITONEUM: No masses. No AAA. 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 Mild lumbar scoliosis with marked degenerative disc disease. No bone metastases identified. IMPRESSION: 1. Multiple new liver lesions suspicious for metastatic disease. 2. Bilateral nephrostomies. No hydronephrosis. Moderate atrophy left kidney. 3. Diffuse increased stool in the colon consistent with constipation. 4. Contracted urinary bladder containing some hemorrhage. Unopacified bladder not well evaluated for masses. Page 2 of 3 [facility] [address] [place] [address] PHONE: [phone] FAX: [phone] Name .................. : CALLIE Young Acct Number.................. : [id number] ROOM. ................. : MR Number ................... : [id number] Stay type ............. : O/P Discharge Date......... ... : 04/10/21 Admit Date ......... : 04/10/21 Admit Phys .................... : JANNY Date of ....... : 1935 Family Phys ................... : MAN SUAREZ Phone .................. : [phone] Age ................................ : 85 Film# .................. .:[id number] Sex ................................. : M Unsigned transcriptions are preliminary reports and do not represent a medical or legal document CT ABD & PELV W/[place] W/[place] [id number] COMPLETE:04/10/21 11:49 KATIA [id number] Reason for Exam: H/O BLADDER CA , MONITORING R/O METS Electronically Reviewed and Signed By Brendan Thurman MD , 04/10/21 14:26, JARET Transcribe Initials: JULIEN, Transcribe Date: 04/10/21 12:57, Dictation Date: Copy for: GLORIA WAGONER via fax Copy for: MAN EBER via fax Copy for: Serge MED REC Page 3 of 3 Name Value Range Interpretation Code Description Data Izabela rce(s) Supporting Document(s) ID Date Data Source [id number] 04/05/2021 11:24:00 AM EDT [facility] ([facility] Name Value Range Interpretation Code Description Data Izabela rce(s) Supporting Document(s) Iron binding capacity [Mass/volume] in Serum or Plasma 227 ug/dL 250-450 Below low normal [facility] ([facility] ) Iron binding capacity.unsaturated [Mass/volume] in Serum or Plasma 207 ug/dL 111-343 [facility] Iron saturation [Mass Fraction] in Serum or Plasma 9 % 15-55 Below lower panic limits [facility] ([facility] ) Iron [Mass/volume] in Serum or Plasma 20 ug/dL 38-169 Below low normal [facility] ([facility] ID Date Data Source [id number] 04/05/2021 11:24:00 AM EDT [facility] ([facility] Name Value Range Interpretation Code Description Data Izabela rce(s) Supporting Document(s) Ferritin [Mass/volume] in Serum or Plasma 318 ng/mL 30-400 [facility] ([facility] ID Date Data Source [id number] 04/05/2021 11:23:00 AM EDT [facility] ([facility] Name Value Range Interpretation Code Description Data Izabela rce(s) Supporting Document(s) Erythrocyte sedimentation rate by Westergren method 60 mm/hr 0-20 Above high normal [facility] ([facility] ) ID Date Data Source [id number] 04/05/2021 11:23:00 AM EDT [facility] ([facility] Name Value Range Interpretation Code Description Data Izabela rce(s) Supporting Document(s) WBC 4.7 10E3/uL 4.1-10.9 [facility] ([facility] RBC 3.25 10E6/uL 4.20-6.30 Below low normal [facility] ([facility] HGB 8.9 g/dL 12.0-18.0 Below low normal [facility] ( [facility] HCT 28.2 % 37.0-51.0 Below low normal [facility] ( [facility] MCHC 31.6 g/dL 31.0-36.0 [facility] MCV 86.8 fL 80.0-97.0 [facility] MCH 27.4 pg 26.0-32.0 [facility] Lym% 30.0 % 10.0-58.5 [facility] PLT 271 10E3/uL 140-440 [facility] RDW-CV 13.3 % 11.5-14.5 [facility] MXD% 12.7 % 0.1-24.0 [facility] Lym# 1.4 10E3/uL 0.6-4.1 [facility] Neut% 57.3 % 37.0-92.0 [facility] MXD# 0.6 10E3/uL 0.0-1.8 [facility] Neut# 2.7 % 2.0-7.8 [facility] ([facility]) MPV 8.8 fL 9.0-13.0 Below low normal [facility] ( [facility] Kaleigh Vivas) Comment Laboratory test result [facility] ([facility] Kaleigh Longoria) ID Date Data Source [id number] 04/04/2021 05:53:00 PM EDT [facility] Name Value Range Interpretation Code Description Data Izabela rce(s) Supporting Document(s) BASIC METABOLIC PANEL [facility] BASIC METABOLIC PANEL Sodium [Moles/volume] in Serum or Plasma 139 mEq/L 134 - 153 [facility] Potassium [Moles/volume] in Serum or Plasma 4.4 mEq/L 3.6 - 5.0 [facility] Chloride [Moles/volume] in Serum or Plasma 104 mEq/L 98 - 107 [facility] Carbon dioxide, total [Moles/volume] in Serum or Plasma 26 MEQ/L 22 - 30 [facility] Glucose [Mass/volume] in Serum or Plasma 105 MG/DL 70 - 99 H [facility] BUN 32 MG/DL 7 - [facility] Creatinine [Mass/volume] in Serum or Plasma 1.9 MG/DL 0.7 - 1.5 H [facility] BUN/CREAT 17 8 - 27 [facility] Calcium [Mass/volume] in Serum or Plasma 8.9 MG/DL 8.4 - 10.2 [facility] Anion gap 3 in Serum or Plasma 9.0 mmol/L 8.0 - 16.0 [facility] 85 [facility] G[facility] 44 mL/min [facility] NON-AA GFR 36 mL/min [facility] Male GFR Inter prentation 20-49 yrs >60 mL/min Normal 50-59 yrs >56 mL/min Normal 60-69 yrs >49 mL/min Normal 70-79yrs >42 mL/min Normal 80 and above >35 mL/min Normal Female GFR Interpretation 20-39 yrs >60 mL/min Normal 40-49 yrs >58 mL/min Normal 50-59 yrs >51 mL/min Normal 60-69 yrs >45 mL/min Normal 70-79 yrs >39 mL/min Normal 80 and above >32 mL/min Normal ID Date Data Source [id number] 04/04/2021 04:52:00 PM EDT [facility] ([facility] Name Value Range Interpretation Code Description Data Izabela rce(s) Supporting Document(s) Basic Metabolic Pane Laboratory test result [facility] ([facility] Is patient fasting? N Sodium 139 meq/L 134-153 [facility] ([facility] Is patient fasting? N Potassium 4.4 meq/L 3.6-5.0 [facility] Is patient fasting? N Chloride 104 meq/L 98-107 [facility] ([facility] Is patient fasting? N Glucose 105 mg/dL 70-99 Above high normal [facility] ([facility] Is patient fasting? N Co2 26 meq/L 22-30 [facility] ([facility] Is patient fasting? N BUN 32 mg/dL 7-21 Above high normal [facility] ([facility] Is patient fasting? N Creatinine 1.9 mg/dL 0.7-1.5 Above high normal [facility] ([facility] Is patient fasting? N Calcium 8.9 mg/dL 8.4-10.2 [facility] Is patient fasting? N BUN/Creat 17 8-27 [facility] ([facility] Is patient fasting? N Anion Gap 9.0 mmol/L 8.0-16.0 [facility] Is patient fasting? N Afr Amer GFR 44 mL/min [facility] ([facility] Is patient fasting? N Age 85 yrs [facility] ([facility] Is patient fasting? N Non-Aa GFR 36 mL/min [facility] Is patient fasting? N ID Date Data Source [id number] 03/29/2021 01:43:00 [place] [address] OPERATIVE SUMMARYNAME: CALLIE Young DATE OF : 1935ENDING PHYS: FIDEL MARSHALL MD DATE: 03/27/21 MR#: [id number] [id number] PROCEDURE: 03/27/2021RE-OPERATIVE DIAGNOSIS: Bilateral hydronephrosis secondary to bladder cancer.POST-OPERATIVE DIAGNOSIS: Bilateral hydronephrosis secondary to bladder cancer.PROCEDURE PERFORMED: 1. Bilateral nephrostomy tube exchange. 2. Bilateral antegrade nephrostograms.ATTENDING SURGEON: Dr. Fidel Marshall.PHYSICIAN QUENCHING CAR OPERATOR: EDITH Angluo.ANESTHESIA: Local.ESTIMATED BLOOD LOSS: Minimal.COMPLICATIONS: None.DRAINS: None.DISPOSITION: To the Ambulatory Surgical Unit.CONDITION: Stable.INTRAOPERTATIVE FINDINGS:Bilateral hydronephrosis with bilateral n ephrostomy tubes in good position.INDICATION FOR PROCEDURE:Mr. Goyo Nuñez is a gentleman with bilateral hydronephrosis secondary to bladder cancer.He has had bilateral nephrostomy in place and presented for bilateral nephrostomy tubesexchanges.DETAILS OF PROCEDURE:After a detailed informed consent was obtained from Mr. Nuñez, he was wheeled into theoperating room and installed on the operating table in the prone position. The indwellingnephrostomy tube sites were exposed. After ensuring the patient was comfortable and monitoring [address] [place] [address] OPERATIVE SUMMARYNAME: CALLIE Young DATE OF : 1935ENDING PHYS: FIDEL MARSHALL MD DATE: 03/27/21 MR#: [id number] were placed on the patient, the nephrostomy tube sites were cleaned, prepped, and drapedin the usual sterile fashion. We then cut the end of the nephrostomy tube and the time-out wascompleted. Under fluoroscopic guidance, a 0.03 guidewire was inserted through the nephrostomytube into the collecting system of the kidney, and the indwelling nephrostomy tube was pulled out.Over the guidewire, a 10 [place] nephrostomy tube was advanced until it got to the collectingsystem of the kidney. The soft obturator was then removed and a pigtail curl formed at the renalpelvis. This was then locked in place. With the nephrostomy tube in good position, the guidewirewas removed. Attention was then turned to the contralateral side, where in similar fashion thenephrostomy tube was exchanged. Both nephrostomy tube positions were confirmed by antegradenephrostograms, which showed the nephrostomy tubes to be in good position. With this nowcompleted, sterile dressing was placed over both nephrostomy tube sites and the patient wastransferred onto a stretcher, on which he was transferred back to the Ambulatory Surgical Unit instable condition. The procedure was well-tolerated, and there were no complications.DD: FIDEL MARSHALL MD 03/29/21 12:08DT: JULIEN 03/29/21 13:35DS: FIDEL MARSHALL MD 04/02/21 08:30 2 Name Value Range Interpretation Code Description Data Izabela rce(s) Supporting Document(s) ID Date Data Source [id number] 03/29/2021 11:34:00 AM EDT [facility] ([facility] Name Value Range Interpretation Code Description Data Izabela rce(s) Supporting Document(s) Request Problem Laboratory test result [facility] ([facility] Test not performed. No stool culture tra nsport device received. TEST: [id number] GI Profile, Stool, PCR ID Date Data Source [id number] 03/29/2021 11:34:00 AM EDT [facility] ([facility] Name Value Range Interpretation Code Description Data [facility] rce(s) Supporting Document(s) Ova + Parasite Exam Laboratory test result [facility] ([facility] These results were obtained using wet pr eparation(s) and trichrome stained smear. This test does not include testing for Cryptosporidium parvum, Cyclospora, or Microsporidia. Ova and parasites identified in Stool by Concentration Laborator y test result [facility] ([facility] ) No ova, cysts, or parasites seen. One negative specimen does not rule out the possibility of a parasitic infection. ID Date Data Source [id number] 03/29/2021 11:34:00 AM EDT [facility] ([facility] Name Value Range Interpretation Code Description Data Izabela rce(s) Supporting Document(s) Campylobacter Laboratory test result [facility] ([facility] Test not performed. No stool culture tra nsport device received. Laboratory test finding (navigational concept) Laboratory test result [facility] ([facility] Test not performed Salmonella Laboratory test result ME DENT ([facility] Test not performed Laboratory test finding (navigational concept) Laboratory test result [facility] ([facility] Test not performed Laboratory test finding (navigational concept) Laboratory test result [facility] ([facility] Test not performed Vibrio Laboratory test result [facility] ([facility] Test not performed Laboratory test finding (navigational concept) Laboratory test result [facility] ([facility] Test not performed Laboratory test finding (navigational concept) Laboratory test result [facility] ([facility] Test not performed Laboratory test finding (navigational concept) Laboratory test result [facility] ([facility] Test not performed Laboratory test finding (navigational concept) Laboratory test result [facility] ([facility] Test not performed Laboratory test finding (navigational concept) Laboratory test result [facility] ([facility] Test not performed Laboratory test finding (navigational concept) Laboratory test result [facility] ([facility] Test not performed Cryptosporidium Laboratory test result [facility] ([facility] Test not performed Laboratory test finding (navigational concept) Laboratory test result [facility] ([facility] Test not performed Entamoeba histolytica Laboratory test result [facility] ([facility] Test not performed Laboratory test finding (navigational concept) Laboratory test result [facility] ([facility] Test not performed Astrovirus Laboratory test result ME DENT ([facility] Test not performed Laboratory test finding (navigational concept) Laboratory test result [facility] ([facility] Test not performed Giardia lamblia Laboratory test result [facility] ([facility] Test not performed Sapovirus Laboratory test result ME DENT ([facility] Test not performed Rotavirus A Laboratory test result M EDENT ([facility] Test not performed Laboratory test finding (navigational concept) Laboratory test result [facility] ([facility] Test not performed ID Date Data Source [id number] 03/27/2021 02:37:00 PM EDT [facility] ([facility] Name Value Range Interpretation Code Description Data Izabela rce(s) Supporting Document(s) Laboratory test finding (navigational concept) Laboratory test result [facility] ([facility] Campylobacter Laboratory test result [facility] ([facility] Laboratory test finding (navigational concept) Laboratory test result [facility] ([facility] Vibrio Laboratory test result [facility] ([facility] Salmonella Laboratory test result ME D[facility] ([facility] Laboratory test finding (navigational concept) Laboratory test result [facility] ([facility] Laboratory test finding (navigational concept) Laboratory test result [facility] ([facility] Laboratory test finding (navigational concept) Laboratory test result [facility] ([facility] Laboratory test finding (navigational concept) Laboratory test result [facility] ([facility] Laboratory test finding (navigational concept) Laboratory test result [facility] ([facility] Laboratory test finding (navigational concept) Laboratory test result [facility] ([facility] Laboratory test finding (navigational concept) Laboratory test result [facility] ([facility] Laboratory test finding (navigational concept) Laboratory test result [facility] ([facility] Entamoeba histolytica Laboratory test result [facility] ([facility] Laboratory test finding (navigational concept) Laboratory test result [facility] ([facility] Cryptosporidium Laboratory test result [facility] ([facility] Laboratory test finding (navigational concept) Laboratory test result [facility] ([facility] Astrovirus Laboratory test result [facility] ([facility] Giardia lamblia Laboratory test result [facility] ([facility] Laboratory test finding (navigational concept) Laboratory test result [facility] ([facility] Sapovirus Laboratory test result [facility] ([facility] Rotavirus A Laboratory test result M EDENT ([facility] ID Date Data Source [id number] 03/25/2021 09:30:00 AM EDT [facility] Name Value Range Interpretation Code Description Data Izabela rce(s) Supporting Document(s) SARS coronavirus 2 RNA Not Detected [facility] This lab was ordered by [facility] and reported by [employer]. ID Date Data Source [id number] 03/26/2021 02:10:00 PM EDT [facility] Name Value Range Interpretation Code Description Data Izabela rce(s) Supporting Document(s) SARS-CoV-2, JOHANNE Not Detected Not Detected [facility] This nucleic acid amplification test was developed and its performancecharacteristics determined by [employer]. Nucleic acidamplification tests include RT-PCR and TMA. This test has not beenFDA cleared or approved. This test has been authorized by FDA underan Emergency Use Authorization (EUA). This test is only authorizedfor the duration of time the declaration that circumstances existjustifying the authorization of the emergency use of in vitrodiagnostic tests for detection of SARS-CoV-2 virus and/or diagnosisof COVID-19 infection under section 564(b)(1) of the Act, 21 U.S.C.360bbb-3(b) (1), unless the authorization is terminated or revokedsooner.When diagnostic testing is negative, the possibility of a falsenegative result should be considered in the context of a patient'srecent exposures and the presence of clinical signs and symptomsconsistent with COVID- 19. An individual without symptoms of COVID-19and who is not shedding SARS-CoV-2 virus would expect to have anegative (not detected) result in this assay. SARS-CoV-2, JOHANNE 2 DAY TAT Performed [facility] ID Date Data Source [id number] 03/25/2021 09:30:00 AM EDT [facility] ([facility] Name Value Range Interpretation Code Description Data Izabela [facility](s) Supporting Document(s) Laboratory test finding (navigational concept) Laboratory test result [facility] Sars-CoV-2, Johanne Laboratory test result [facility] ([facility] This nucleic acid amplification test was developed and its performance characteristics determined by [employer]. Nucleic acid amplification tests include RT-PCR and [...] negative (not detected) result in this assay. ID Date Data Source [id number] 02/13/2021 04:33:00 PM EDT [facility] Name Value Range Interpretation Code Description Data Izabela rce(s) Supporting Document(s) CBC W/AUTOMATED DIFF [facility] COMPLETE BLOOD COUNT Leukocytes [#/volume] in Blood by Automated count 6.5 10^3/uL 4.2 - 1 1.0 [facility] Erythrocytes [#/volume] in Blood by Automated count 3.18 10^6/uL 4. 50 - 6.30 L [facility] Hemoglobin [Mass/volume] in Blood 9.3 g/dL 14.0 - 16.0 L [facility] Hematocrit [Volume Fraction] of Blood by Automated count 28.8 % 4 1.0 - 51.0 L [facility] Erythrocyte mean corpuscular volume [Entitic volume] by Auto mated count 90.6 fL 80.0 - 94.0 [facility] Erythrocyte mean corpuscular hemoglobin [Entitic mass] by Automated count 29.2 pg 27.0 - 34.0 [facility] Erythrocyte mean corpuscular hemoglobin concentration [Mass/volume] by Automated count 32.3 g/dL 31.0 - 36.0 [facility] Erythrocyte distribution width [Ratio] by Automated count 13.1 % 11.5 - 14.8 [facility] Platelets [#/volume] in Blood by Automated count 251 10^3/uL 150 - 45 0 [facility] Platelet mean volume [Entitic volume] in Blood by Automated count 9.8 fL 7.4 - 10.4 [facility] Neutrophils/100 leukocytes in Blood by Automated count 62.9 % 37. 0 - 80.0 [facility] Lymphocytes/100 leukocytes in Blood by Manual count 18.7 % 25.0 - 40.0 L [facility] Monocytes/100 leukocytes in Blood by Automated count 10.7 % 3.0 - 8.0 H [facility] Eosinophils/100 leukocytes in Blood by Automated count 6.3 % 0.0 - 7.0 [facility] Basophils/100 leukocytes in Blood by Automated count 0.8 % 0.0 - 2.0 [facility] %IG 0.6 % 0.0 - 0.0 [facility] 0.0 % 0.0 - 0.0 [facility] al Neutrophils [#/volume] in Blood by Automated count 4.11 10^3/uL 2.00 - 6.90 [facility] Lymphocytes [#/volume] in Blood by Automated count 1.22 10^3/uL 0.60 - 3.40 [facility] Monocytes [#/volume] in Blood by Automated count 0.70 10^3/uL 0.00 - 0.90 [facility] Eosinophils [#/volume] in Blood by Automated count 0.41 10^3/uL 0.00 - 0.70 [facility] Basophils [#/volume] in Blood by Automated count 0.05 10^3/uL 0.00 - 0.20 [facility] #IG 0.04 10^3/uL 0.00 - 0.10 [facility] #NRBC 0.00 10^3/uL 0.00 - 0.00 [facility] MANUAL DIFF NOT INDICATED [facility] RBC MORPH NOT INDICATED [facility] ID Date Data Source [id number] 02/13/2021 04:19:00 PM EDT [facility] ([facility] Name Value Range Interpretation Code Description Data Izabela rce(s) Supporting Document(s) CBC W/Automated Diff Laboratory test result [facility] ([facility] .~.~R31.0 RBC 3.18 10^6/uL 4.50-6.30 Below low normal [facility] ([facility] .~.~R31.0 WBC 6.5 10^3/uL 4.2-11.0 [facility] ([facility] .~.~R31.0 Hematocrit 28.8 % 41.0-51.0 Below low normal [facility] ( [facility] .~.~R31.0 MCV 90.6 fL 80.0-94.0 [facility] ([facility] .~.~R31.0 Hemoglobin 9.3 g/dL 14.0-16.0 Below low normal [facility] ( [facility] .~.~R31.0 MCHC 32.3 g/dL 31.0-36.0 [facility] ([facility] .~.~R31.0 MCH 29.2 pg 27.0-34.0 [facility] ([facility] .~.~R31.0 RDW 13.1 % 11.5-14.8 [facility] ([facility] .~.~R31.0 MPV 9.8 fL 7.4-10.4 [facility] ([facility] .~.~R31.0 Platelets 251 10^3/uL 150-450 [facility] ([facility] .~.~R31.0 Lymph 18.7 % 25.0-40.0 Below low normal [facility] ( [facility] .~.~R31.0 [place] 10.7 % 3.0-8.0 Above high normal [facility] ([facility] .~.~R31.0 Neut 62.9 % 37.0-80.0 [facility] ([facility] .~.~R31.0 Eos 6.3 % 0.0-7.0 [facility] ([facility] .~.~R31.0 Baso 0.8 % 0.0-2.0 [facility] ([facility] .~.~R31.0 %Ig 0.6 % 0.0-0.0 Above high normal [facility] ([facility] .~.~R31.0 %NRBC 0.0 % 0.0-0.0 [facility] ([facility] .~.~R31.0 #Neut 4.11 10^3/uL 2.00-6.90 [facility] ([facility] .~.~R31.0 #Lymph 1.22 10^3/uL 0.60-3.40 [facility] ([facility] .~.~R31.0 #Eos 0.41 10^3/uL 0.00-0.70 [facility] ([facility] .~.~R31.0 #[place] 0.70 10^3/uL 0.00-0.90 [facility] ([facility] .~.~R31.0 #Ig 0.04 10^3/uL 0.00-0.10 [facility] ([facility] .~.~R31.0 #Baso 0.05 10^3/uL 0.00-0.20 [facility] ([facility] .~.~R31.0 Manual Diff Laboratory test result M [facility] ([facility] .~.~R31.0 #NRBC 0.00 10^3/uL 0.00-0.00 [facility] ([facility] .~.~R31.0 RBC Morph Laboratory test result ME MULLEN ([facility] .~.~R31.0 ID Date Data Source [id number] 01/14/2021 11:32:00 AM EDT [facility] ([facility] Name Value Range Interpretation Code Description Data Izabela rce(s) Supporting Document(s) Sars-CoV-2, Johanne Laboratory test result [facility] ([facility] This nucleic acid amplification test was developed and its performance characteristics determined by [employer]. Nucleic acid amplification tests include RT-PCR and [...] negative (not detected) result in this assay. Laboratory test finding (navigational concept) Laboratory test result [facility] ([facility] ID Date Data Source [id number] 01/14/2021 11:32:00 AM EDT [facility] Name Value Range Interpretation Code Description Data Izabela rce(s) Supporting Document(s) SARS coronavirus 2 RNA Not Detected [facility] This lab was ordered by [facility] and reported by [employer]. ID Date Data Source [id number] 01/15/2021 03:15:00 PM EDT [facility] Name Value Range Interpretation Code Description Data Izabela rce(s) Supporting Document(s) SARS-CoV-2, JOHANNE Not Detected Not Detected [facility] This nucleic acid amplification test was developed and its performancecharacteristics determined by [employer]. Nucleic acidamplification tests include RT-PCR and TMA. This test has not beenFDA cleared or approved. This test has been authorized by FDA underan Emergency Use Authorization (EUA). This test is only authorizedfor the duration of time the declaration that circumstances existjustifying the authorization of the emergency use of in vitrodiagnostic tests for detection of SARS-CoV-2 virus and/or diagnosisof COVID-19 infection under section 564(b)(1) of the Act, 21 U.S.C.360bbb-3(b) (1), unless the authorization is terminated or revokedsooner.When diagnostic testing is negative, the possibility of a falsenegative result should be considered in the context of a patient'srecent exposures and the presence of clinical signs and symptomsconsistent with COVID- 19. An individual without symptoms of COVID-19and who is not shedding SARS-CoV-2 virus would expect to have anegative (not detected) result in this assay. SARS-CoV-2, JOHANNE 2 DAY TAT Performed [facility] ID Date Data Source [id number] 01/02/2021 03:10:00 PM EDT [facility] ([facility] Name Value Range Interpretation Code Description Data Izabela rce(s) Supporting Document(s) Urine Culture, Routine Laboratory test result Ab normal (applies to non-numeric results) [facility] ([facility] SRC:UA VOIDED Bacteria identified in Urine by Culture Laboratory test result Abnormal (applies to non-numeric results) [facility] SRC:UA VOIDED Bacteria identified in Urine by Culture Laboratory test result Abnormal (applies to non-numeric results) [facility] ([facility] SRC:UA VOIDED Antimicrobial Susceptibility Laboratory test result [facility] ([facility] SRC:UA VOIDED ID Date Data Source [id number] 01/02/2021 02:28:00 PM EDT [facility] ([facility] Name Value Range Interpretation Code Description Data Izabela rce(s) Supporting Document(s) Color Laboratory test result ARABELLA ([facility] NORMAL RANGES Age WBC RBC HGB HCT [...] HCT IS 5% LESS SOURCE FOR DATA: [employer] 1800 OPERATION MANUAL( AUTOMATED BLOOD COUNTS AND [...] Normal 80 and above >32 mL/min Normal Glucose-Ua Laboratory test result ME MULLEN ([facility] NORMAL RANGES Age WBC RBC HGB HCT [...] HCT IS 5% LESS SOURCE FOR DATA: [employer] 1800 OPERATION MANUAL( AUTOMATED BLOOD COUNTS AND [...] Normal 80 and above >32 mL/min Normal Clarity Laboratory test result [facility] ([facility] NORMAL RANGES Age WBC RBC HGB HCT [...] HCT IS 5% LESS SOURCE FOR DATA: [facility] 1800 OPERATION MANUAL( AUTOMATED BLOOD COUNTS [...] Normal 80 and above >32 mL/min Normal Bilirubin,Urine Laboratory test result [facility] ([facility] NORMAL RANGES Age WBC RBC HGB HCT [...] Normal 80 and above >32 mL/min Normal Creatine kinase [Enzymatic activity/volume] in Serum or Plas ma 1.020 # 1.000-1.030 [facility] ([facility] NORMAL RANGES Age WBC RBC HGB HCT [...] HCT IS 5% LESS SOURCE FOR DATA: [employer] 1800 OPERATION MANUAL( AUTOMATED BLOOD COUNTS AND [...] Normal 80 and above >32 mL/min Normal Ketone Laboratory test result [facility] ([facility] NORMAL RANGES Age WBC RBC HGB HCT [...] HCT IS 5% LESS SOURCE FOR DATA: [employer] 1800 OPERATION MANUAL( AUTOMATED BLOOD COUNTS AND [...] Normal 80 and above >32 mL/min Normal Blood - Ua Laboratory test result Abnormal (applies to non -numeric results) RAABELLA ([facility] NORMAL RANGES Age WBC RBC HGB HCT [...] HCT IS 5% LESS SOURCE FOR DATA: [employer] 1800 OPERATION MANUAL( AUTOMATED BLOOD COUNTS AND [...] Normal 80 and above >32 mL/min Normal pH 5.0 # 5.0-8.0 [facility] ([facility] NORMAL RANGES Age WBC RBC HGB HCT [...] HCT IS 5% LESS SOURCE FOR DATA: [employer] 1800 OPERATION MANUAL( AUTOMATED BLOOD COUNTS AND [...] Normal 80 and above >32 mL/min Normal Protein 30 mg/dL Abnormal (applies to non-numeric res ults) ARABELLA ([facility] NORMAL RANGES Age WBC RBC HGB HCT [...] HCT IS 5% LESS SOURCE FOR DATA: [employer] 1800 OPERATION MANUAL( AUTOMATED BLOOD COUNTS AND [...] Normal 80 and above >32 mL/min Normal Urobilinogen 0.2 NA 0.2-1.0 [facility] ([facility] NORMAL RANGES Age WBC RBC HGB HCT [...] HCT IS 5% LESS SOURCE FOR DATA: [employer] 1800 OPERATION MANUAL( AUTOMATED BLOOD COUNTS AND [...] Normal 80 and above >32 mL/min Normal Nitrite Laboratory test result Abnormal (applies to non -numeric results) ARABELLA ([facility] NORMAL RANGES Age WBC RBC HGB HCT [...] HCT IS 5% LESS SOURCE FOR DATA: [employer] 1800 OPERATION MANUAL( AUTOMATED BLOOD COUNTS AND [...] Normal 80 and above >32 mL/min Normal Leukocyte Laboratory test result Abnormal (applies to non -numeric results) [facility] ([facility] NORMAL RANGES Age WBC RBC HGB HCT [...] HCT IS 5% LESS SOURCE FOR DATA: [employer] 1800 OPERATION MANUAL( AUTOMATED BLOOD COUNTS AND [...] Normal 80 and above >32 mL/min Normal Comment Laboratory test result Above high normal [facility] ([facility] NORMAL RANGES Age WBC RBC HGB HCT [...] Normal 80 and above >32 mL/min Normal ID Date Data Source [id number] 01/02/2021 02:28:00 PM EDT [facility] ([facility] Name Value Range Interpretation Code Description Data Izabela rce(s) Supporting Document(s) Hemoglobin A1c/Hemoglobin.total in Blood 5.8 % 4.40-6.10 [facility] ([facility] NORMAL RANGES Age WBC RBC HGB HCT [...] HCT IS 5% LESS SOURCE FOR DATA: [employer] 1800 OPERATION MANUAL( AUTOMATED BLOOD COUNTS AND [...] Normal 80 and above >32 mL/min Normal ID Date Data Source [id number] 01/02/2021 02:28:00 PM EDT [facility] ([facility] Name Value Range Interpretation Code Description Data Izabela rce(s) Supporting Document(s) BUN 49 mg/dL 8-23 Above high normal [facility] ([facility] NORMAL RANGES Age WBC RBC HGB HCT [...] HCT IS 5% LESS SOURCE FOR DATA: [employer] 1800 OPERATION MANUAL( AUTOMATED BLOOD COUNTS AND [...] Normal 80 and above >32 mL/min Normal Glu 143 mg/dL 70-110 Above high normal [facility] ([facility] NORMAL RANGES Age WBC RBC HGB HCT [...] HCT IS 5% LESS SOURCE FOR DATA: [employer] 1800 OPERATION MANUAL( AUTOMATED BLOOD COUNTS AND [...] Normal 80 and above >32 mL/min Normal Na 142 mmol/L 136-145 [facility] ([facility] NORMAL RANGES Age WBC RBC HGB HCT [...] HCT IS 5% LESS SOURCE FOR DATA: [employer] 1800 OPERATION MANUAL( AUTOMATED BLOOD COUNTS AND [...] Normal 80 and above >32 mL/min Normal BUN/Creatinine Ratio 20.2 [facility] ([facility] NORMAL RANGES Age WBC RBC HGB HCT [...] HCT IS 5% LESS SOURCE FOR DATA: [employer] 1800 OPERATION MANUAL( AUTOMATED BLOOD COUNTS AND [...] Normal 80 and above >32 mL/min Normal Creat 2.4 mg/dL 0.7-1.2 Above high normal [facility] ([facility] NORMAL RANGES Age WBC RBC HGB HCT [...] HCT IS 5% LESS SOURCE FOR DATA: [employer] 1800 OPERATION MANUAL( AUTOMATED BLOOD COUNTS AND [...] Normal 80 and above >32 mL/min Normal CL 107.9 mmol/L 98.0-107.0 Above high normal [facility] ([facility] NORMAL RANGES Age WBC RBC HGB HCT [...] HCT IS 5% LESS SOURCE FOR DATA: [employer] 1800 OPERATION MANUAL( AUTOMATED BLOOD COUNTS AND [...] Normal 80 and above >32 mL/min Normal K 4.4 mmol/L 3.5-5.1 [facility] ([facility] NORMAL RANGES Age WBC RBC HGB HCT [...] Normal 80 and above >32 mL/min Normal TP 5.9 g/dL 6.6-8.7 Below low normal [facility] ( [facility] NORMAL RANGES Age WBC RBC HGB HCT [...] HCT IS 5% LESS SOURCE FOR DATA: [employer] 1800 OPERATION MANUAL( AUTOMATED BLOOD COUNTS AND [...] Normal 80 and above >32 mL/min Normal CA 8.6 mg/dL 8.6-10.2 [facility] ([facility] NORMAL RANGES Age WBC RBC HGB HCT [...] HCT IS 5% LESS SOURCE FOR DATA: [employer] 1800 OPERATION MANUAL( AUTOMATED BLOOD COUNTS AND [...] Normal 80 and above >32 mL/min Normal Co2 22.4 mmol/L 22.0-29.0 [facility] ([facility] NORMAL RANGES Age WBC RBC HGB HCT [...] HCT IS 5% LESS SOURCE FOR DATA: [employer] 1800 OPERATION MANUAL( AUTOMATED BLOOD COUNTS AND [...] Normal 80 and above >32 mL/min Normal Alb 3.8 g/dL 3.5-5.2 [facility] ([facility] NORMAL RANGES Age WBC RBC HGB HCT [...] HCT IS 5% LESS SOURCE FOR DATA: [employer] 1800 OPERATION MANUAL( AUTOMATED BLOOD COUNTS AND [...] Normal 80 and above >32 mL/min Normal Globulin 2.1 Calc [facility] ([facility] NORMAL RANGES Age WBC RBC HGB HCT [...] HCT IS 5% LESS SOURCE FOR DATA: [employer] 1800 OPERATION MANUAL( AUTOMATED BLOOD COUNTS AND [...] Normal 80 and above >32 mL/min Normal A/G Ratio 1.8 Calc [facility] ([facility] NORMAL RANGES Age WBC RBC HGB HCT [...] HCT IS 5% LESS SOURCE FOR DATA: [employer] 1800 OPERATION MANUAL( AUTOMATED BLOOD COUNTS AND [...] Normal 80 and above >32 mL/min Normal Ast (Sgot) 15 U/L 0-40 [facility] ([facility] NORMAL RANGES Age WBC RBC HGB HCT [...] HCT IS 5% LESS SOURCE FOR DATA: [employer] 1800 OPERATION MANUAL( AUTOMATED BLOOD COUNTS [...] Normal 80 and above >32 mL/min Normal Alp 90.0 U/L 40-129 [facility] ([facility] NORMAL RANGES Age WBC RBC HGB HCT [...] HCT IS 5% LESS SOURCE FOR DATA: [employer] 1800 OPERATION MANUAL( AUTOMATED BLOOD COUNTS AND [...] Normal 80 and above >32 mL/min Normal Alt (SGPT) 20 U/L 0-41 [facility] ([facility] NORMAL RANGES Age WBC RBC HGB HCT [...] Normal 80 and above >32 mL/min Normal Anion Gap 16 mmol/L [facility] NORMAL RANGES Age WBC RBC HGB HCT MCV PLT Adult M 4.1-10.9 4.20-6.30 12.0-18.0 37.0-51.0 80-97 140-440 Adult F 4.1-10.9 4.04-5.48 12.0-18.0 37.0-51.0 80- 140-440 0 -1 Yr 5.0-20.0 3.9-5.9 15-18 [...] HCT IS 5% LESS SOURCE FOR DATA: [employer] 1800 OPERATION MANUAL( AUTOMATED BLOOD COUNTS AND [...] Normal 80 and above >32 mL/min Normal Tbili 0.21 mg/dL 0.0-1.2 [facility] ([facility] NORMAL RANGES Age WBC RBC HGB HCT [...] HCT IS 5% LESS SOURCE FOR DATA: [employer] 1800 OPERATION MANUAL( AUTOMATED BLOOD COUNTS AND [...] Normal 80 and above >32 mL/min Normal Osmolality-Calculated 297.5 Calc [facility] ([facility] NORMAL RANGES Age WBC RBC HGB HCT [...] HCT IS 5% LESS SOURCE FOR DATA: [employer] 1800 OPERATION MANUAL( AUTOMATED BLOOD COUNTS AND [...] Normal 80 and above >32 mL/min Normal eGFR Non-Afr. Guatemalan 24 # [facility] ([facility] NORMAL RANGES Age WBC RBC HGB HCT [...] HCT IS 5% LESS SOURCE FOR DATA: [employer] 1800 OPERATION MANUAL( AUTOMATED BLOOD COUNTS AND [...] Normal 80 and above >32 mL/min Normal eGFR 27 # [facility] ( [facility] NORMAL RANGES Age WBC RBC HGB HCT [...] HCT IS 5% LESS SOURCE FOR DATA: [employer] 1800 OPERATION MANUAL( AUTOMATED BLOOD COUNTS AND [...] Normal 80 and above >32 mL/min Normal ID Date Data Source [id number] 01/02/2021 02:28:00 PM EDT [facility] ([facility] Name Value Range Interpretation Code Description Data Izabela rce(s) Supporting Document(s) WBC 5.9 10E3/uL 4.1-10.9 [facility] ([facility] NORMAL RANGES Age WBC RBC HGB HCT [...] HCT IS 5% LESS SOURCE FOR DATA: [employer] 1800 OPERATION MANUAL( AUTOMATED BLOOD COUNTS AND [...] Normal 80 and above >32 mL/min Normal RBC 3.50 10E6/uL 4.20-6.30 Below low normal [facility] ([facility] NORMAL RANGES Age WBC RBC HGB HCT [...] HCT IS 5% LESS SOURCE FOR DATA: [employer] 1800 OPERATION MANUAL( AUTOMATED BLOOD COUNTS AND [...] Normal 80 and above >32 mL/min Normal HGB 10.1 g/dL 12.0-18.0 Below low normal [facility] ( [facility] NORMAL RANGES Age WBC RBC HGB HCT [...] HCT IS 5% LESS SOURCE FOR DATA: [employer] 1800 OPERATION MANUAL( AUTOMATED BLOOD COUNTS AND [...] Normal 80 and above >32 mL/min Normal HCT 32.3 % 37.0-51.0 Below low normal [facility] ( [facility] NORMAL RANGES Age WBC RBC HGB HCT [...] Normal 80 and above >32 mL/min Normal MCV 92.3 fL 80.0-97.0 [facility] ([facility] NORMAL RANGES Age WBC RBC HGB HCT [...] HCT IS 5% LESS SOURCE FOR DATA: [employer] 1800 OPERATION MANUAL( AUTOMATED BLOOD COUNTS AND [...] Normal 80 and above >32 mL/min Normal MCH 28.9 pg 26.0-32.0 [facility] ([facility] NORMAL RANGES Age WBC RBC HGB HCT [...] HCT IS 5% LESS SOURCE FOR DATA: [employer] 1800 OPERATION MANUAL( AUTOMATED BLOOD COUNTS AND [...] Normal 80 and above >32 mL/min Normal PLT 267 10E3/uL 140-440 [facility] ([facility] NORMAL RANGES Age WBC RBC HGB HCT [...] HCT IS 5% LESS SOURCE FOR DATA: [employer] 1800 OPERATION MANUAL( AUTOMATED BLOOD COUNTS AND [...] Normal 80 and above >32 mL/min Normal MCHC 31.3 g/dL 31.0-36.0 [facility] ([facility] NORMAL RANGES Age WBC RBC HGB HCT [...] HCT IS 5% LESS SOURCE FOR DATA: [employer] 1800 OPERATION MANUAL( AUTOMATED BLOOD COUNTS AND [...] Normal 80 and above >32 mL/min Normal Lym% 35.5 % 10.0-58.5 [facility] ([facility] NORMAL RANGES Age WBC RBC HGB HCT [...] HCT IS 5% LESS SOURCE FOR DATA: [employer] 1800 OPERATION MANUAL( AUTOMATED BLOOD COUNTS AND [...] Normal 80 and above >32 mL/min Normal RDW-CV 13.8 % 11.5-14.5 [facility] ([facility] NORMAL RANGES Age WBC RBC HGB HCT [...] HCT IS 5% LESS SOURCE FOR DATA: [employer] 1800 OPERATION MANUAL( AUTOMATED BLOOD COUNTS AND [...] Normal 80 and above >32 mL/min Normal Neut% 54.8 % 37.0-92.0 [facility] ([facility] NORMAL RANGES Age WBC RBC HGB HCT [...] HCT IS 5% LESS SOURCE FOR DATA: [employer] 1800 OPERATION MANUAL( AUTOMATED BLOOD COUNTS AND [...] Normal 80 and above >32 mL/min Normal Lym# 2.1 10E3/uL 0.6-4.1 [facility] ([facility] NORMAL RANGES Age WBC RBC HGB HCT [...] HCT IS 5% LESS SOURCE FOR DATA: [employer] 1800 OPERATION MANUAL( AUTOMATED BLOOD COUNTS AND [...] Normal 80 and above >32 mL/min Normal MXD% 9.7 % 0.1-24.0 [facility] ([facility] NORMAL RANGES Age WBC RBC HGB HCT [...] HCT IS 5% LESS SOURCE FOR DATA: [employer] 1800 OPERATION MANUAL( AUTOMATED BLOOD COUNTS AND [...] Normal 80 and above >32 mL/min Normal Neut# 3.2 % 2.0-7.8 [facility] ([facility] NORMAL RANGES Age WBC RBC HGB HCT MCV PLT Adult M 4.1-10.9 4.20-6.30 12.0-18.0 37.0-51.0 80-97 140-440 Adult F 4.1-10.9 4.04-5.48 12.0-18.0 37.0-51.0 80- 140-440 0 -1 Yr 5.0-20.0 3.9-5.9 15-18 [...] Normal 80 and above >32 mL/min Normal MPV 8.5 fL 9.0-13.0 Below low normal [facility] ( [facility] NORMAL RANGES Age WBC RBC HGB HCT [...] HCT IS 5% LESS SOURCE FOR DATA: [employer] 1800 OPERATION MANUAL( AUTOMATED BLOOD COUNTS AND [...] Normal 80 and above >32 mL/min Normal MXD# 0.6 10E3/uL 0.0-1.8 [facility] ([facility] NORMAL RANGES Age WBC RBC HGB HCT [...] HCT IS 5% LESS SOURCE FOR DATA: [employer] 1800 OPERATION MANUAL( AUTOMATED BLOOD COUNTS AND [...] Normal 80 and above >32 mL/min Normal ID Date Data Source [id number] 11/30/2020 02:33:00 PM EDT [facility] ([facility] Name Value Range Interpretation Code Description Data Izabela rce(s) Supporting Document(s) Urine Culture, Routine Laboratory test result Ab normal (applies to non-numeric results) [facility] ([facility] ) SRC:CATHETER Bacteria identified in Urine by Culture Laboratory test result Abnormal (applies to non-numeric results) [facility] ([facility] SRC:CATHETER Bacteria identified in Urine by Culture Laboratory test result Abnormal (applies to non-numeric results) [facility] ([facility] SRC:CATHETER Antimicrobial Susceptibility Laboratory test result [facility] ([facility] SRC:CATHETER ID Date Data Source [id number] 11/30/2020 02:08:00 PM EDT [facility] ([facility] Name Value Range Interpretation Code Description Data Izabela rce(s) Supporting Document(s) Color Laboratory test result [facility] ([facility] NORMAL RANGES Age WBC RBC HGB HCT [...] HCT IS 5% LESS SOURCE FOR DATA: [employer] 1800 OPERATION MANUAL( AUTOMATED BLOOD COUNTS AND [...] Normal 80 and above >32 mL/min Normal Glucose-Ua Laboratory test result [facility] ([facility] NORMAL RANGES Age WBC RBC HGB HCT [...] HCT IS 5% LESS SOURCE FOR DATA: [employer] 1800 OPERATION MANUAL( AUTOMATED BLOOD COUNTS AND [...] Normal 80 and above >32 mL/min Normal Clarity Laboratory test result [facility] ([facility] NORMAL RANGES Age WBC RBC HGB HCT MCV PLT Adult M 4.1-10.9 4.20-6.30 12.0-18.0 37.0-51.0 80- 140-440 Adult F 4.1-10.9 4.04-5.48 12.0-18.0 37.0-51.0 140-440 0 -1 Yr 5.0-20.0 3.9-5.9 15-18 [...] HCT IS 5% LESS SOURCE FOR DATA: [employer] 1800 OPERATION MANUAL( AUTOMATED BLOOD COUNTS AND [...] Normal 80 and above >32 mL/min Normal Bilirubin,Urine Laboratory test result [facility] ([facility] NORMAL RANGES Age WBC RBC HGB HCT [...] HCT IS 5% LESS SOURCE FOR DATA: [employer] 1800 OPERATION MANUAL( AUTOMATED BLOOD COUNTS AND [...] Normal 80 and above >32 mL/min Normal Ketone Laboratory test result [facility] ([facility] NORMAL RANGES Age WBC RBC HGB HCT [...] HCT IS 5% LESS SOURCE FOR DATA: [employer] 1800 OPERATION MANUAL( AUTOMATED BLOOD COUNTS AND [...] Normal 80 and above >32 mL/min Normal Creatine kinase [Enzymatic activity/volume] in Serum or Plas ma 1.025 # 1.000-1.030 [facility] ([facility] NORMAL RANGES Age WBC RBC HGB HCT [...] HCT IS 5% LESS SOURCE FOR DATA: [employer] 1800 OPERATION MANUAL( AUTOMATED BLOOD COUNTS AND [...] Normal 80 and above >32 mL/min Normal Blood - Ua Laboratory test result Abnormal (applies to non -numeric results) [facility] ([facility] NORMAL RANGES Age WBC RBC HGB HCT [...] HCT IS 5% LESS SOURCE FOR DATA: [employer] 1800 OPERATION MANUAL( AUTOMATED BLOOD COUNTS AND [...] Normal 80 and above >32 mL/min Normal pH 5.0 # 5.0-8.0 [facility] ([facility] NORMAL RANGES Age WBC RBC HGB HCT [...] HCT IS 5% LESS SOURCE FOR DATA: [employer] 1800 OPERATION MANUAL( AUTOMATED BLOOD COUNTS AND [...] Normal 80 and above >32 mL/min Normal Protein 30 mg/dL Abnormal (applies to non-numeric res ults) [facility] ([facility] NORMAL RANGES Age WBC RBC HGB HCT [...] HCT IS 5% LESS SOURCE FOR DATA: [employer] 1800 OPERATION MANUAL( AUTOMATED BLOOD COUNTS AND [...] Normal 80 and above >32 mL/min Normal Urobilinogen 0.2 NA 0.2-1.0 [facility] ([facility] NORMAL RANGES Age WBC RBC HGB HCT [...] HCT IS 5% LESS SOURCE FOR DATA: [employer] 1800 OPERATION MANUAL( AUTOMATED BLOOD COUNTS AND [...] Normal 80 and above >32 mL/min Normal Nitrite Laboratory test result Abnormal (applies to non -numeric results) [facility] ([facility] NORMAL RANGES Age WBC RBC HGB HCT [...] HCT IS 5% LESS SOURCE FOR DATA: [employer] 1800 OPERATION MANUAL( AUTOMATED BLOOD COUNTS AND [...] Normal 80 and above >32 mL/min Normal Comment Laboratory test result [facility] ([facility] NORMAL RANGES Age WBC RBC HGB HCT [...] HCT IS 5% LESS SOURCE FOR DATA: [employer] 1800 OPERATION MANUAL( AUTOMATED BLOOD COUNTS AND [...] Normal 80 and above >32 mL/min Normal Leukocyte Laboratory test result Abnormal (applies to non -numeric results) [facility] ([facility] NORMAL RANGES Age WBC RBC HGB HCT MCV PLT Adult M 4.1-10.9 4.20-6.30 12.0-18.0 37.0-51.0 80- 140-440 Adult F 4.1-10.9 4.04-5.48 12.0-18.0 37.0-51.0 80- 140-440 0 -1 Yr 5.0-20.0 3.9-5.9 15-18 [...] HCT IS 5% LESS SOURCE FOR DATA: [employer] 1800 OPERATION MANUAL( AUTOMATED BLOOD COUNTS AND [...] Normal 80 and above >32 mL/min Normal ID Date Data Source [id number] 11/30/2020 02:08:00 PM EDT [facility] ([facility] Name Value Range Interpretation Code Description Data Izabela rce(s) Supporting Document(s) Glu 168 mg/dL 70-110 Above high normal [facility] ([email or web address] [facility] NORMAL RANGES Age WBC RBC HGB HCT [...] HCT IS 5% LESS SOURCE FOR DATA: [employer] 1800 OPERATION MANUAL( AUTOMATED BLOOD COUNTS AND [...] Normal 80 and above >32 mL/min Normal BUN 48 mg/dL 8-23 Above high normal [facility] ([facility] NORMAL RANGES Age WBC RBC HGB HCT [...] HCT IS 5% LESS SOURCE FOR DATA: [employer] 1800 OPERATION MANUAL( AUTOMATED BLOOD COUNTS AND [...] Normal 80 and above >32 mL/min Normal BUN/Creatinine Ratio 24.0 [facility] ([facility] NORMAL RANGES Age WBC RBC HGB HCT [...] HCT IS 5% LESS SOURCE FOR DATA: [employer] 1800 OPERATION MANUAL( AUTOMATED BLOOD COUNTS AND [...] Normal 80 and above >32 mL/min Normal Creat 2.0 mg/dL 0.7-1.2 Above high normal [facility] ([facility] NORMAL RANGES Age WBC RBC HGB HCT [...] HCT IS 5% LESS SOURCE FOR DATA: [employer] 1800 OPERATION MANUAL( AUTOMATED BLOOD COUNTS AND [...] Normal 80 and above >32 mL/min Normal CL 97.3 mmol/L 98.0-107.0 Below low normal [facility] ([facility] NORMAL RANGES Age WBC RBC HGB HCT [...] HCT IS 5% LESS SOURCE FOR DATA: [employer] 1800 OPERATION MANUAL( AUTOMATED BLOOD COUNTS AND [...] Normal 80 and above >32 mL/min Normal K 4.0 mmol/L 3.5-5.1 [facility] ([facility] NORMAL RANGES Age WBC RBC HGB HCT [...] HCT IS 5% LESS SOURCE FOR DATA: [employer] 1800 OPERATION MANUAL( AUTOMATED BLOOD COUNTS AND [...] Normal 80 and above >32 mL/min Normal Na 129 mmol/L 136-145 Below low normal [facility] ( [facility] NORMAL RANGES Age WBC RBC HGB HCT [...] HCT IS 5% LESS SOURCE FOR DATA: [employer] 1800 OPERATION MANUAL( AUTOMATED BLOOD COUNTS AND [...] Normal 80 and above >32 mL/min Normal CA 8.8 mg/dL 8.6-10.2 [facility] ([facility] NORMAL RANGES Age WBC RBC HGB HCT [...] HCT IS 5% LESS SOURCE FOR DATA: [employer] 1800 OPERATION MANUAL( AUTOMATED BLOOD COUNTS AND [...] Normal 80 and above >32 mL/min Normal Co2 21.7 mmol/L 22.0-29.0 Below low normal [facility] ([facility] NORMAL RANGES Age WBC RBC HGB HCT MCV PLT Adult M 4.1-10.9 4.20-6.30 12.0-18.0 37.0-51.0 80- 140-440 Adult F 4.1-10.9 4.04-5.48 12.0-18.0 37.0-51.0 80- 140-440 0 -1 Yr 5.0-20.0 3.9-5.9 15-18 [...] HCT IS 5% LESS SOURCE FOR DATA: [employer] 1800 OPERATION MANUAL( AUTOMATED BLOOD COUNTS AND [...] Normal 80 and above >32 mL/min Normal TP 6.2 g/dL 6.6-8.7 Below low normal [facility] ( [facility] NORMAL RANGES Age WBC RBC HGB HCT [...] HCT IS 5% LESS SOURCE FOR DATA: [employer] 1800 OPERATION MANUAL( AUTOMATED BLOOD COUNTS AND [...] Normal 80 and above >32 mL/min Normal A/G Ratio 1.7 Calc [facility] ([facility] NORMAL RANGES Age WBC RBC HGB HCT [...] HCT IS 5% LESS SOURCE FOR DATA: [employer] 1800 OPERATION MANUAL( AUTOMATED BLOOD COUNTS AND [...] Normal 80 and above >32 mL/min Normal Globulin 2.3 Calc [facility] ([facility] NORMAL RANGES Age WBC RBC HGB HCT [...] HCT IS 5% LESS SOURCE FOR DATA: [employer] 1800 OPERATION MANUAL( AUTOMATED BLOOD COUNTS AND [...] Normal 80 and above >32 mL/min Normal Alb 3.9 g/dL 3.5-5.2 [facility] ([facility] NORMAL RANGES Age WBC RBC HGB HCT [...] HCT IS 5% LESS SOURCE FOR DATA: [employer] 1800 OPERATION MANUAL( AUTOMATED BLOOD COUNTS AND [...] Normal 80 and above >32 mL/min Normal Alp 98.6 U/L 40-129 [facility] ([facility] NORMAL RANGES Age WBC RBC HGB HCT [...] HCT IS 5% LESS SOURCE FOR DATA: [employer] 1800 OPERATION MANUAL( AUTOMATED BLOOD COUNTS AND [...] Normal 80 and above >32 mL/min Normal Alt (SGPT) 24 U/L 0-41 [facility] ([facility] NORMAL RANGES Age WBC RBC HGB HCT [...] HCT IS 5% LESS SOURCE FOR DATA: [employer] 1800 OPERATION MANUAL( AUTOMATED BLOOD COUNTS AND [...] Normal 80 and above >32 mL/min Normal Osmolality-Calculated 274.8 Calc [facility] ([facility] NORMAL RANGES Age WBC RBC HGB HCT [...] HCT IS 5% LESS SOURCE FOR DATA: [employer] 1800 OPERATION MANUAL( AUTOMATED BLOOD COUNTS AND [...] Normal 80 and above >32 mL/min Normal Ast (Sgot) 26 U/L 0-40 [facility] ([facility] NORMAL RANGES Age WBC RBC HGB HCT [...] HCT IS 5% LESS SOURCE FOR DATA: [employer] 1800 OPERATION MANUAL( AUTOMATED BLOOD COUNTS AND [...] Normal 80 and above >32 mL/min Normal Tbili 0.33 mg/dL 0.0-1.2 [facility] ([facility] NORMAL RANGES Age WBC RBC HGB HCT [...] Normal 80 and above >32 mL/min Normal eGFR Non-Afr. Guatemalan 30 # [facility] ([facility] NORMAL RANGES Age WBC RBC HGB HCT [...] HCT IS 5% LESS SOURCE FOR DATA: [employer] 1800 OPERATION MANUAL( AUTOMATED BLOOD COUNTS [...] Normal 80 and above >32 mL/min Normal eGFR 34 # [facility] ( [facility] NORMAL RANGES Age WBC RBC HGB HCT [...] HCT IS 5% LESS SOURCE FOR DATA: [employer] 1800 OPERATION MANUAL( AUTOMATED BLOOD COUNTS AND [...] Normal 80 and above >32 mL/min Normal Anion Gap 14 mmol/L [facility] ([facility] NORMAL RANGES Age WBC RBC HGB HCT [...] HCT IS 5% LESS SOURCE FOR DATA: [employer] 1800 OPERATION MANUAL( AUTOMATED BLOOD COUNTS AND [...] Normal 80 and above >32 mL/min Normal ID Date Data Source [id number] 11/30/2020 02:08:00 PM EDT [facility] ([facility] Name Value Range Interpretation Code Description Data Izabela rce(s) Supporting Document(s) WBC 4.7 10E3/uL 4.1-10.9 [facility] ([facility] NORMAL RANGES Age WBC RBC HGB HCT [...] HCT IS 5% LESS SOURCE FOR DATA: [employer] 1800 OPERATION MANUAL( AUTOMATED BLOOD COUNTS AND [...] Normal 80 and above >32 mL/min Normal HGB 9.9 g/dL 12.0-18.0 Below low normal [facility] ( [facility] NORMAL RANGES Age WBC RBC HGB HCT [...] HCT IS 5% LESS SOURCE FOR DATA: [employer] 1800 OPERATION MANUAL( AUTOMATED BLOOD COUNTS AND [...] Normal 80 and above >32 mL/min Normal RBC 3.42 10E6/uL 4.20-6.30 Below low normal [facility] ([facility] NORMAL RANGES Age WBC RBC HGB HCT [...] HCT IS 5% LESS SOURCE FOR DATA: [employer] 1800 OPERATION MANUAL( AUTOMATED BLOOD COUNTS AND [...] Normal 80 and above >32 mL/min Normal HCT 30.5 % 37.0-51.0 Below low normal [facility] ( [facility] NORMAL RANGES Age WBC RBC HGB HCT [...] HCT IS 5% LESS SOURCE FOR DATA: [employer] 1800 OPERATION MANUAL( AUTOMATED BLOOD COUNTS AND [...] Normal 80 and above >32 mL/min Normal MCV 89.2 fL 80.0-97.0 [facility] ([facility] NORMAL RANGES Age WBC RBC HGB HCT [...] HCT IS 5% LESS SOURCE FOR DATA: [employer] 1800 OPERATION MANUAL( AUTOMATED BLOOD COUNTS AND [...] Normal 80 and above >32 mL/min Normal MCH 28.9 pg 26.0-32.0 [facility] ([facility] NORMAL RANGES Age WBC RBC HGB HCT [...] Normal 80 and above >32 mL/min Normal MCHC 32.5 g/dL 31.0-36.0 [facility] ([facility] NORMAL RANGES Age WBC RBC HGB HCT [...] HCT IS 5% LESS SOURCE FOR DATA: [employer] 1800 OPERATION MANUAL( AUTOMATED BLOOD COUNTS [...] Normal 80 and above >32 mL/min Normal PLT 235 10E3/uL 140-440 [facility] ([facility] NORMAL RANGES Age WBC RBC HGB HCT [...] HCT IS 5% LESS SOURCE FOR DATA: [employer] 1800 OPERATION MANUAL( AUTOMATED BLOOD COUNTS AND [...] Normal 80 and above >32 mL/min Normal RDW-CV 13.7 % 11.5-14.5 [facility] ([facility] NORMAL RANGES Age WBC RBC HGB HCT [...] HCT IS 5% LESS SOURCE FOR DATA: [employer] 1800 OPERATION MANUAL( AUTOMATED BLOOD COUNTS AND [...] Normal 80 and above >32 mL/min Normal Lym% 24.8 % 10.0-58.5 [facility] ([facility] NORMAL RANGES Age WBC RBC HGB HCT [...] HCT IS 5% LESS SOURCE FOR DATA: [employer] 1800 OPERATION MANUAL( AUTOMATED BLOOD COUNTS AND [...] Normal 80 and above >32 mL/min Normal Neut% 61.6 % 37.0-92.0 [facility] ([facility] NORMAL RANGES Age WBC RBC HGB HCT [...] HCT IS 5% LESS SOURCE FOR DATA: [employer] 1800 OPERATION MANUAL( AUTOMATED BLOOD COUNTS AND [...] Normal 80 and above >32 mL/min Normal MXD% 13.6 % 0.1-24.0 [facility] ([facility] NORMAL RANGES Age WBC RBC HGB HCT [...] HCT IS 5% LESS SOURCE FOR DATA: [employer] 1800 OPERATION MANUAL( AUTOMATED BLOOD COUNTS AND [...] Normal 80 and above >32 mL/min Normal Neut# 2.9 % 2.0-7.8 [facility] ([facility] NORMAL RANGES Age WBC RBC HGB HCT [...] HCT IS 5% LESS SOURCE FOR DATA: [employer] 1800 OPERATION MANUAL( AUTOMATED BLOOD COUNTS AND [...] Normal 80 and above >32 mL/min Normal Lym# 1.2 10E3/uL 0.6-4.1 [place] ([facility] NORMAL RANGES Age WBC RBC HGB HCT [...] HCT IS 5% LESS SOURCE FOR DATA: [employer] 1800 OPERATION MANUAL( AUTOMATED BLOOD COUNTS AND [...] Normal 80 and above >32 mL/min Normal MXD# 0.6 10E3/uL 0.0-1.8 [facility] ([facility] NORMAL RANGES Age WBC RBC HGB HCT [...] Normal 80 and above >32 mL/min Normal MPV 9.1 fL 9.0-13.0 [facility] ([facility] NORMAL RANGES Age WBC RBC HGB HCT [...] Normal 80 and above >32 mL/min Normal ID Date Data Source [id number] 10/20/2020 05:56:00 [place] [address] OPERATIVE SUMMARYNAME: CALLIE Young DATE OF : 1935TTENDING PHYS: FIDEL MARSHALL MD [facility] [id number] DATE: 10/19/20 MR#: [id number] PROCEDURE: 10/19/20PREOPERATIVE DIAGNOSIS: Bilateral hydronephrosisPOSTOPERATIVE DIAGNOSIS: Bilateral hydronephrosisPROCEDURE PERFORMED: Bilateral nephrostomy tube exchange with bilateral antegradenephrostogramSURGEON: Fidel Marshall M.D.QUENCHING CAR OPERATOR: NOE AnguloTHESIA: LocalESTIMATED BLOOD LOSS: None.COMPLICATIONS: None.DRAINS: None.DISPOSITION: To the Ambulatory Surgical Unit.CONDITION: Stable.INTRAOPERATIVE FINDINGS: Bilateral hydronephrosis, left greater than right.INDICATION FOR PROCEDURE:The patient is an 84-year-old gentleman, a 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 He has an indwelling nephrostomy tube which has beenfunctioning without difficulties. He presented today for bilateral nephrostomy tube exchanges.DETAILS OF PROCEDURE:After a detailed informed consent was obtained from the patient, he was wheeled into the operatingroom and installed on the operating table in the prone position. Both nephrostomy tube sites wereexposed. After proper monitoring devices were placed on the patient, the left and rightnephrostomy tube insertion sites were cleaned, prepped and draped in the usual sterile fashion.After the proper time-out procedures were then carried out, the nephrostomy tubes were cut and a [address] [place] [address] OPERATIVE SUMMARYNAME: CALLIE Young DATE OF : 1935TTENDING PHYS: FIDEL MARSHALL MD DATE: 10/19/20 MR#: [id number] was inserted into the collecting system of the kidney. The indwelling nephrostomy tubeswere then removed over the guidewire. A new 10-Argentine nephrostomy tube was then inserted overthe guidewire into the collecting of the kidney until it was in the renal pelvis. The guidewire wasthen removed and a pigtail formed in the renal pelvis on the left and the right sides. The positionsof both tubes were confirmed by antegrade nephrostogram. The nephrostomy tubes were thenlocked in place and a sterile dressing was placed over each of the tubes. With the operation at thispoint now completed, the patient was transferred onto a stretcher and transferred to the AmbulatorySurgical Unit in stable condition. The operation was well-tolerated and there were nocomplications.DD: FIDEL MARSHALL MD 10/19/20 09:53DT: WILD 10/20/20 17:45DS: FIDEL MARSHALL MD 11/06/20 20:04 2 Name Value Range Interpretation Code Description Data Izabela rce(s) Supporting Document(s) ID Date Data Source [id number] 10/15/2020 09:00:00 AM EDT [facility] ([facility] Name Value Range Interpretation Code Description Data [facility] rce(s) Supporting Document(s) Sars-CoV-2, Johanne Laboratory test result [facility] ([facility] This nucleic acid amplification test was developed and its performance characteristics determined by [employer]. Nucleic acid amplification tests include RT-PCR and [...] negative (not detected) result in this assay. Laboratory test finding (navigational concept) Laboratory test result [facility] ([facility] ID Date Data Source [id number] 10/15/2020 09:00:00 AM EDT [facility] Name Value Range Interpretation Code Description Data Izabela rce(s) Supporting Document(s) SARS coronavirus 2 RNA Not Detected [facility] This lab was ordered by [facility] elva and reported by [employer]. ID Date Data Source [id number] 10/17/2020 06:17:00 AM EDT [facility] Name Value Range Interpretation Code Description Data Izabela rce(s) Supporting Document(s) SARS-CoV-2, JOHANNE Not Detected Not Detected [facility] This nucleic acid amplification test was developed and its performancecharacteristics determined by [employer]. Nucleic acidamplification tests include RT-PCR and TMA. This test has not beenFDA cleared or approved. This test has been authorized by FDA underan Emergency Use Authorization (EUA). This test is only authorizedfor the duration of time the declaration that circumstances existjustifying the authorization of the emergency use of in vitrodiagnostic tests for detection of SARS-CoV-2 virus and/or diagnosisof COVID-19 infection under section 564(b)(1) of the Act, 21 U.S.C.360bbb-3(b) (1), unless the authorization is terminated or revokedsooner.When diagnostic testing is negative, the possibility of a falsenegative result should be considered in the context of a patient'srecent exposures and the presence of clinical signs and symptomsconsistent with COVID- 19. An individual without symptoms of COVID-19and who is not shedding SARS-CoV-2 virus would expect to have anegative (not detected) result in this assay. SARS-CoV-2, JOHANNE 2 DAY TAT Performed [facility] ID Date Data Source [id number] 10/03/2020 02:53:00 PM EDT [facility] ([facility] Name Value Range Interpretation Code Description Data Izabela rce(s) Supporting Document(s) Creatine kinase [Enzymatic activity/volume] in Serum or Plasma 243 U/L 39-308 [facility] ([facility] NORMAL RANGES Age WBC RBC HGB HCT [...] HCT IS 5% LESS SOURCE FOR DATA: [employer] 1800 OPERATION MANUAL( AUTOMATED BLOOD COUNTS AND [...] Normal 80 and above >32 mL/min Normal ID Date Data Source [id number] 10/03/2020 02:53:00 PM EDT [facility] ([facility] Name Value Range Interpretation Code Description Data Izabela rce(s) Supporting Document(s) Glu 130 mg/dL 70-110 Above high normal [facility] ([facility] NORMAL RANGES Age WBC RBC HGB HCT [...] HCT IS 5% LESS SOURCE FOR DATA: [employer] 1800 OPERATION MANUAL( AUTOMATED BLOOD COUNTS AND [...] Normal 80 and above >32 mL/min Normal BUN 46 mg/dL 8-23 Above high normal [facility] ([facility] NORMAL RANGES Age WBC RBC HGB HCT [...] HCT IS 5% LESS SOURCE FOR DATA: [employer] 1800 OPERATION MANUAL( AUTOMATED BLOOD COUNTS AND [...] Normal 80 and above >32 mL/min Normal BUN/Creatinine Ratio 21.5 Calc [facility] ([facility] NORMAL RANGES Age WBC RBC HGB HCT [...] HCT IS 5% LESS SOURCE FOR DATA: [employer] 1800 OPERATION MANUAL( AUTOMATED BLOOD COUNTS AND [...] Normal 80 and above >32 mL/min Normal Creat 2.1 mg/dL 0.7-1.2 Above high normal [facility] ([facility] NORMAL RANGES Age WBC RBC HGB HCT [...] HCT IS 5% LESS SOURCE FOR DATA: [employer] 1800 OPERATION MANUAL( AUTOMATED BLOOD COUNTS AND [...] Normal 80 and above >32 mL/min Normal Na 137 mmol/L 136-145 [facility] ([facility] NORMAL RANGES Age WBC RBC HGB HCT [...] HCT IS 5% LESS SOURCE FOR DATA: [employer] 1800 OPERATION MANUAL( AUTOMATED BLOOD COUNTS AND [...] Normal 80 and above >32 mL/min Normal K 5.0 mmol/L 3.5-5.1 [facility] ([facility] NORMAL RANGES Age WBC RBC HGB HCT [...] HCT IS 5% LESS SOURCE FOR DATA: [employer] 1800 OPERATION MANUAL( AUTOMATED BLOOD COUNTS AND [...] Normal 80 and above >32 mL/min Normal CL 106.6 mmol/L 98.0-107.0 [facility] ([facility] NORMAL RANGES Age WBC RBC HGB HCT [...] Normal 80 and above >32 mL/min Normal Co2 22.0 mmol/L 22.0-29.0 [facility] NORMAL RANGES Age WBC RBC HGB HCT MCV PLT Adult M 4.1-10.9 4.20-6.30 12.0-18.0 37.0-51.0 80-97 140-440 Adult F 4.1-10.9 4.04-5.48 12.0-18.0 37.0-51.0 80- 140-440 0 -1 Yr 5.0-20.0 3.9-5.9 15-18 [...] Normal 80 and above >32 mL/min Normal CA 8.6 mg/dL 8.6-10.2 [facility] ([facility] NORMAL RANGES Age WBC RBC HGB HCT [...] HCT IS 5% LESS SOURCE FOR DATA: [employer] 1800 OPERATION MANUAL( AUTOMATED BLOOD COUNTS AND [...] Normal 80 and above >32 mL/min Normal TP 5.8 g/dL 6.6-8.7 Below low normal [facility] ( [facility] NORMAL RANGES Age WBC RBC HGB HCT [...] HCT IS 5% LESS SOURCE FOR DATA: [employer] 1800 OPERATION MANUAL( AUTOMATED BLOOD COUNTS AND [...] Normal 80 and above >32 mL/min Normal Alb 3.9 g/dL 3.5-5.2 [facility] ([facility] NORMAL RANGES Age WBC RBC HGB HCT [...] HCT IS 5% LESS SOURCE FOR DATA: [employer] 1800 OPERATION MANUAL( AUTOMATED BLOOD COUNTS AND [...] Normal 80 and above >32 mL/min Normal Globulin 2.0 Calc [facility] ([facility] NORMAL RANGES Age WBC RBC HGB HCT [...] HCT IS 5% LESS SOURCE FOR DATA: [employer] 1800 OPERATION MANUAL( AUTOMATED BLOOD COUNTS AND [...] Normal 80 and above >32 mL/min Normal A/G Ratio 2.0 Calc [facility] ([facility] NORMAL RANGES Age WBC RBC HGB HCT [...] HCT IS 5% LESS SOURCE FOR DATA: [employer] 1800 OPERATION MANUAL( AUTOMATED BLOOD COUNTS AND [...] Normal 80 and above >32 mL/min Normal Alp 152.2 U/L 40-129 Above high normal [facility] ([facility] NORMAL RANGES Age WBC RBC HGB HCT [...] HCT IS 5% LESS SOURCE FOR DATA: [employer] 1800 OPERATION MANUAL( AUTOMATED BLOOD COUNTS AND [...] Normal 80 and above >32 mL/min Normal Alt (SGPT) 13 U/L 0-41 [facility] ([facility] NORMAL RANGES Age WBC RBC HGB HCT [...] HCT IS 5% LESS SOURCE FOR DATA: [employer] 1800 OPERATION MANUAL( AUTOMATED BLOOD COUNTS AND [...] Normal 80 and above >32 mL/min Normal Tbili 0.08 mg/dL 0.0-1.2 [facility] ([facility] NORMAL RANGES Age WBC RBC HGB HCT [...] HCT IS 5% LESS SOURCE FOR DATA: [employer] 1800 OPERATION MANUAL( AUTOMATED BLOOD COUNTS AND [...] Normal 80 and above >32 mL/min Normal Ast (Sgot) 17 U/L 0-40 [facility] ([facility] NORMAL RANGES Age WBC RBC HGB HCT [...] Normal 80 and above >32 mL/min Normal Osmolality-Calculated 287.5 Calc [facility] ([facility] NORMAL RANGES Age WBC RBC HGB HCT [...] HCT IS 5% LESS SOURCE FOR DATA: [employer] 1800 OPERATION MANUAL( AUTOMATED BLOOD COUNTS AND [...] Normal 80 and above >32 mL/min Normal Anion Gap 13 mmol/L [facility] ([facility] NORMAL RANGES Age WBC RBC HGB HCT [...] HCT IS 5% LESS SOURCE FOR DATA: [employer] 1800 OPERATION MANUAL( AUTOMATED BLOOD COUNTS AND [...] Normal 80 and above >32 mL/min Normal eGFR Non-Afr. Guatemalan 28 # [facility] ([facility] NORMAL RANGES Age WBC RBC HGB HCT [...] HCT IS 5% LESS SOURCE FOR DATA: [employer] 1800 OPERATION MANUAL( AUTOMATED BLOOD COUNTS AND [...] Normal 80 and above >32 mL/min Normal eGFR 32 # [facility] ( [facility] NORMAL RANGES Age WBC RBC HGB HCT [...] HCT IS 5% LESS SOURCE FOR DATA: [employer] 1800 OPERATION MANUAL( AUTOMATED BLOOD COUNTS AND [...] Normal 80 and above >32 mL/min Normal ID Date Data Source [id number] 10/03/2020 02:53:00 PM EDT [facility] ([facility] Name Value Range Interpretation Code Description Data Izabela rce(s) Supporting Document(s) WBC 4.1 10E3/uL 4.1-10.9 [facility] ([facility] NORMAL RANGES Age WBC RBC HGB HCT [...] HCT IS 5% LESS SOURCE FOR DATA: [employer] 1800 OPERATION MANUAL( AUTOMATED BLOOD COUNTS AND [...] Normal 80 and above >32 mL/min Normal RBC 3.57 10E6/uL 4.20-6.30 Below low normal [facility] ([facility] NORMAL RANGES Age WBC RBC HGB HCT [...] HCT IS 5% LESS SOURCE FOR DATA: [employer] 1800 OPERATION MANUAL( AUTOMATED BLOOD COUNTS AND [...] Normal 80 and above >32 mL/min Normal HGB 10.7 g/dL 12.0-18.0 Below low normal [facility] ( [facility] NORMAL RANGES Age WBC RBC HGB HCT [...] HCT IS 5% LESS SOURCE FOR DATA: [employer] 1800 OPERATION MANUAL( AUTOMATED BLOOD COUNTS AND [...] Normal 80 and above >32 mL/min Normal HCT 33.0 % 37.0-51.0 Below low normal [facility] ( [facility] NORMAL RANGES Age WBC RBC HGB HCT [...] HCT IS 5% LESS SOURCE FOR DATA: [employer] 1800 OPERATION MANUAL( AUTOMATED BLOOD COUNTS AND [...] Normal 80 and above >32 mL/min Normal MCV 92.4 fL 80.0-97.0 [facility] ([facility] NORMAL RANGES Age WBC RBC HGB HCT MCV PLT Adult M 4.1-10.9 4.20-6.30 12.0-18.0 37.0-51.0 80- 140-440 Adult F 4.1-10.9 4.04-5.48 12.0-18.0 37.0-51.0 [...] Normal 80 and above >32 mL/min Normal MCH 30.0 pg 26.0-32.0 [facility] ([facility] NORMAL RANGES Age WBC RBC HGB HCT [...] HCT IS 5% LESS SOURCE FOR DATA: [employer] 1800 OPERATION MANUAL( AUTOMATED BLOOD COUNTS AND [...] Normal 80 and above >32 mL/min Normal MCHC 32.4 g/dL 31.0-36.0 [facility] ([facility] NORMAL RANGES Age WBC RBC HGB HCT [...] HCT IS 5% LESS SOURCE FOR DATA: [employer] 1800 OPERATION MANUAL( AUTOMATED BLOOD COUNTS AND [...] Normal 80 and above >32 mL/min Normal RDW-CV 12.6 % 11.5-14.5 [facility] ([facility] NORMAL RANGES Age WBC RBC HGB HCT [...] HCT IS 5% LESS SOURCE FOR DATA: [employer] 1800 OPERATION MANUAL( AUTOMATED BLOOD COUNTS AND [...] Normal 80 and above >32 mL/min Normal Lym% 34.6 % 10.0-58.5 [facility] ([facility] NORMAL RANGES Age WBC RBC HGB HCT [...] HCT IS 5% LESS SOURCE FOR DATA: [employer] 1800 OPERATION MANUAL( AUTOMATED BLOOD COUNTS AND [...] Normal 80 and above >32 mL/min Normal PLT 202 10E3/uL 140-440 [facility] ([facility] NORMAL RANGES Age WBC RBC HGB HCT [...] HCT IS 5% LESS SOURCE FOR DATA: [employer] 1800 OPERATION MANUAL( AUTOMATED BLOOD COUNTS AND [...] Normal 80 and above >32 mL/min Normal Neut% 54.4 % 37.0-92.0 [facility] ([facility] NORMAL RANGES Age WBC RBC HGB HCT [...] HCT IS 5% LESS SOURCE FOR DATA: [employer] 1800 OPERATION MANUAL( AUTOMATED BLOOD COUNTS AND [...] Normal 80 and above >32 mL/min Normal MXD% 11.0 % 0.1-24.0 [facility] ([facility] NORMAL RANGES Age WBC RBC HGB HCT [...] HCT IS 5% LESS SOURCE FOR DATA: [employer] 1800 OPERATION MANUAL( AUTOMATED BLOOD COUNTS AND [...] Normal 80 and above >32 mL/min Normal MXD# 0.5 10E3/uL 0.0-1.8 [facility] ([facility] NORMAL RANGES Age WBC RBC HGB HCT [...] HCT IS 5% LESS SOURCE FOR DATA: [employer] 1800 OPERATION MANUAL( AUTOMATED BLOOD COUNTS AND [...] Normal 80 and above >32 mL/min Normal Neut# 2.2 % 2.0-7.8 [facility] ([facility] NORMAL RANGES Age WBC RBC HGB HCT [...] HCT IS 5% LESS SOURCE FOR DATA: [employer] 1800 OPERATION MANUAL( AUTOMATED BLOOD COUNTS AND [...] Normal 80 and above >32 mL/min Normal Lym# 1.4 10E3/uL 0.6-4.1 [facility] ([facility] NORMAL RANGES Age WBC RBC HGB HCT [...] HCT IS 5% LESS SOURCE FOR DATA: [employer] 1800 OPERATION MANUAL( AUTOMATED BLOOD COUNTS AND [...] Normal 80 and above >32 mL/min Normal MPV 9.2 fL 9.0-13.0 [facility] ([facility] NORMAL RANGES Age WBC RBC HGB HCT [...] Normal 80 and above >32 mL/min Normal ID Date Data Source [id number] 07/27/2020 11:30:00 [place] [address] OPERATIVE SUMMARYNAME: CALLIE Young DATE OF : [birth year]ATTENDING PHYS: FIDEL MARSHALL MD DATE: 07/27/20 MR#: [id number] PROCEDURE: 07/27/2020RE- OPERATIVE DIAGNOSIS: History of bladder cancer with bilateral hydronephrosis.POST-OPERATIVE DIAGNOSIS: History of bladder cancer with bilateral hydronephrosis.PROCEDURE PERFORMED: 1. Surveillance cystoscopy. 2. Bilateral nephrostomy tube exchange with antegrade nephrostograms.ATTENDING SURGEON: Dr. Fidel Marshall.PHYSICIAN QUENCHING CAR OPERATOR: EDITH Angulo.ANESTHESIA: Local.ESTIMATED BLOOD LOSS: MinimalCOMPLICATIONS: None.DRAINS: None.DISPOSITION: To the Ambulatory Surgical Unit.CONDITION: Stable.INTRAOPERTATIVE FINDINGS:Bilat eral hydronephrosis, area of tumor recurrence at the level of the trigone, and fibrosis towardsboth ureteral orifices. Both ureteral orifices were not visualized.INDICATIONS FOR PROCEDURE:Mr. Goyo Nuñez is an 84-year-old gentleman with a history of bladder cancer, who had had atransurethral resection of bladder tumors. 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 He had subsequently developed bilateral hydronephrosiswith renal failure, and had bilateral nephrostomy tubes inserted. He presented today for acystoscopy to determine the extent of the intravesical tumor as well as for bilateral nephrostomytube exchanges. [address] [place] [address] OPERATIVE SUMMARYNAME: CALLIE Young DATE OF : 1935TTENDING PHYS: FIDEL MARSHALL MD DATE: 07/27/20 MR#: [id number] OF PROCEDURE:After a detailed informed consent was obtained, Mr. Nuñez was wheeled into the operatingroom and installed on the operating table in the supine position. The penoscrotal area was thencleaned, prepped, and draped in the usual sterile fashion. After the first time-out was carried out,cystourethroscopy with a flexible cystoscope was performed. 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 There was also some intravesical recurrence noted in the same area. Obviously(and patient is aware) the extent of the tumor on the outside of the bladder cannot be assessed bythe current procedure. After noting the extent of the tumor, the bladder was emptied and thecystoscope was withdrawn. The patient was then transferred back onto a stretcher and returnedback on the operating table in the prone position. The previously inserted nephrostomy tube siteswere then cleaned, prepped, and draped in the usual sterile fashion. The indwelling nephrostomytubes were then pulled out over a guidewire. On the right side a 10 Argentine nephrostomy tube wasinserted over the guidewire and under fluoroscopic guidance until the nephrostomy tube was in therenal pelvis. The guidewire was then pulled out and a pigtail was formed. The pigtail was thenlocked in position and the position was verified by an antegrade nephrostogram. The nephrostomytube was noted in the renal pelvis with no extravasation of contrast and contrast going downtowards the ureter. Attention was then turned to the contralateral side, where a new nephrostomytube was inserted over the guidewire once again under fluoroscopic guidance into the renal pelvis.The guidewire was then removed, and once again a pigtail was formed. On the left side, however,the entrance was through an upper pole calyx with position which was somewhat tenuous.Manipulation showed eventual entrance into the collecting system of the kidney as verified byantegrade nephrostogram and the brisk drainage of contrast material. With both nephrostomy tubesin place and locked in, the sterile dressing was placed over the incision site. The liss ent was thentransferred onto a stretches and transferred back to the Ambulatory Surgical Unit in stablecondition. The operation was well-tolerated, and there were no complications.Copies of this report to Dr. Eber Conway.DD: FIDEL MARSHALL MD 07/27/20 10:22DT: JULIEN 07/27/20 11:07DS: FIDEL MARSHALL MD 08/17/20 16:26 2 [place] [address] OPERATIVE SUMMARYNAME: CALLIE Young DATE OF : 1935TTENDING PHYS: FIDEL MARSHALL MD DATE: 07/27/20 MR#: [id number] Name Value Range Interpretation Code Description Data Izabela rce(s) Supporting Document(s) ID Date Data Source [id number] 07/27/2020 07:17:00 AM EST [facility] Name Value Range Interpretation Code Description Data Izabela rce(s) Supporting Document(s) COMPREHENSIVE METABOLIC PANEL [facility] COMPREHENSIVE METABOLIC PANEL Sodium [Moles/volume] in Serum or Plasma 140 mEq/L 134 - 153 [facility] Potassium [Moles/volume] in Serum or Plasma 5.4 mEq/L 3.6 - 5.0 H [facility] Chloride [Moles/volume] in Serum or Plasma 109 mEq/L 98 - 107 H [facility] Carbon dioxide, total [Moles/volume] in Serum or Plasma 24 MEQ/L 22 - 30 [facility] Glucose [Mass/volume] in Serum or Plasma 98 MG/DL 70 - 99 [facility] BUN 53 MG/DL 7 - [address] [facility] Creatinine [Mass/volume] in Serum or Plasma 1.9 MG/DL 0.7 - 1.5 H [facility] BUN/CREAT 28 8 - [address] [facility] Protein [Mass/volume] in Serum or Plasma 7.1 G/DL 6.3 - 8.2 [facility] Albumin [Mass/volume] in Serum or Plasma 3.9 G/DL 3.9 - 5.0 [facility] Globulin [Mass/volume] in Serum by calculation 3.2 GM/DL 2.4 - 3.2 [facility] A/G RATIO 1.2 0.8 - 2.0 [facility] Calcium [Mass/volume] in Serum or Plasma 8.5 MG/DL 8.4 - 10.2 [facility] Bilirubin.total [Mass/volume] in Serum or Plasma <0.7 MG/DL 0.2 - 1.3 [facility] Alkaline phosphatase [Enzymatic activity/volume] in Serum or Plasma 96 U/L 38 - 126 [facility] Aspartate aminotransferase [Enzymatic activity/volume] in Serum or Plasma 20 U/L 5 - 40 [facility] Alanine aminotransferase [Enzymatic activity/volume] in Seru m or Plasma 14 U/L 7 - 56 [facility] Anion gap 3 in Serum or Plasma 7.0 mmol/L 8.0 - 16.0 L [facility] AGE 84 yrs [facility] NON-AA GFR 36 mL[facility] AMER GFR 44 mL/min [facility] Male GFR In terprentation 20-49 yrs >60 mL/min Normal 50-59 yrs >56 mL/min Normal 60-69 yrs >49 mL/min Normal 70-79yrs >42 mL/min Normal 80 and above >35 mL/min Normal Female GFR Interpretation 20-39 yrs >60 mL/min Normal 40-49 yrs >58 mL/min Normal 50-59 yrs >51 mL/min Normal 60-69 yrs >45 mL/min Normal 70-79 yrs >39 mL/min Normal 80 and above >32 mL/min Normal ID Date Data Source [id number] 07/27/2020 06:51:00 AM EST [facility] ([facility] Name Value Range Interpretation Code Description Data Izabela rce(s) Supporting Document(s) Comprehensive [facility] Laboratory test result [facility] ([facility] Is patient fasting? Y~pt for OR Potassium 5.4 meq/L 3.6-5.0 Above high normal [facility] ([facility] Is patient fasting? Y~pt for OR Sodium 140 meq/L 134-153 [facility] ([facility] Is patient fasting? Y~pt for OR Chloride 109 meq/L 98-107 Above high normal [facility] ([facility] Is patient fasting? Y~pt for OR Co2 24 meq/L 22-30 [facility] ([facility] Is patient fasting? Y~pt for OR Creatinine 1.9 mg/dL 0.7-1.5 Above high normal [facility] ([facility] Is patient fasting? Y~pt for OR Glucose 98 mg/dL 70-99 [facility] ([facility] Is patient fasting? Y~pt for OR BUN 53 mg/dL 7-21 Above high normal [facility] ([facility] Is patient fasting? Y~pt for OR BUN/Creat 28 8-27 Above high normal [facility] ([facility] Is patient fasting? Y~pt for OR Total Protein 7.1 g/dL 6.3-8.2 [facility] ([facility] Is patient fasting? Y~pt for OR Albumin 3.9 g/dL 3.9-5.0 [facility] ([facility] Is patient fasting? Y~pt for OR Globulin 3.2 GM/DL 2.4-3.2 [facility] ([facility] Is patient fasting? Y~pt for OR A/G Ratio 1.2 0.8-2.0 [facility] ([facility] Is patient fasting? Y~pt for OR Calcium 8.5 mg/dL 8.4-10.2 [facility] Is patient fasting? Y~pt for OR Alkaline Phos 96 U/L 38-126 [facility] ([facility] Is patient fasting? Y~pt for OR Total Bili Laboratory test result 0.2-1.3 [facility] ([facility] Is patient fasting? Y~pt for OR SGPT/Alt 14 U/L 7-56 [facility] ([facility] Is patient fasting? Y~pt for OR Anion Gap 7.0 mmol/L 8.0-16.0 Below low normal [facility] ( [facility] Is patient fasting? Y~pt for OR Sgot/Ast 20 U/L 5-40 [facility] ([facility] Is patient fasting? Y~pt for OR Non-Aa GFR 36 mL/min [facility] ([facility] Is patient fasting? Y~pt for OR Age 84 yrs [facility] ([facility] Is patient fasting? Y~pt for OR Afr Amer GFR 44 mL/min [facility] ([facility] Is patient fasting? Y~pt for OR ID Date Data Source [id number] 07/23/2020 11:00:00 AM EST [facility] Name Value Range Interpretation Code Description Data Izabela [facility](s) Supporting Document(s) SARS coronavirus 2 RNA Not Detected [facility] This lab was ordered by [facility] and reported by [facility]. ID Date Data Source [id number] 07/25/2020 06:14:00 AM EST [facility] Name Value Range Interpretation Code Description Data Izabela rce(s) Supporting Document(s) SARS-CoV-2, JOHANNE Not Detected Not Detected [facility] This nucleic acid amplification test was developed and its performancecharacteristics determined by [facility]. Nucleic acidamplification tests include RT-PCR and TMA. This test has not beenFDA cleared or approved. This test has been authorized by FDA underan Emergency Use Authorization (EUA). This test is only authorizedfor the duration of time the declaration that circumstances existjustifying the authorization of the emergency use of in vitrodiagnostic tests for detection of SARS-CoV-2 virus and/or diagnosisof COVID-19 infection under section 564(b)(1) of the Act, 21 U.S.C.360bbb-3(b) (1), unless the authorization is terminated or revokedsooner.When diagnostic testing is negative, the possibility of a falsenegative result should be considered in the context of a patient'srecent exposures and the presence of clinical signs and symptomsconsistent with COVID- 19. An individual without symptoms of COVID-19and who is not shedding SARS-CoV-2 virus would expect to have anegative (not detected) result in this assay. ID Date Data Source [id number] 07/23/2020 11:00:00 AM EST [facility] ([facility] Name Value Range Interpretation Code Description Data Izabela rce(s) Supporting Document(s) Coronavirus Covid-19 Laboratory test result [facility] ([facility] This nucleic acid amplification test was developed and its performance characteristics determined by [employer]. Nucleic acid amplification tests include RT-PCR and [...] negative (not detected) result in this assay. ID Date Data Source [id number] 07/17/2020 02:03:00 PM EST [facility] ([facility] Name Value Range Interpretation Code Description Data Izabela rce(s) Supporting Document(s) Glu 151 mg/dL 70-110 Above high normal [facility] ([facility] CHRONIC KIDNEY DISEASE STAGING PER NKF: MALE [...] Normal 80 and above >32 mL/min Normal BUN 47 mg/dL 8-23 Above high normal [facility] ([facility] CHRONIC KIDNEY DISEASE STAGING PER NKF: MALE [...] Normal 80 and above >32 mL/min Normal Creat 2.3 mg/dL 0.7-1.2 Above high normal [facility] ([facility] CHRONIC KIDNEY DISEASE STAGING PER NKF: MALE [...] Normal 80 and above >32 mL/min Normal BUN/Creatinine Ratio 20.6 CALC [facility] ([facility] CHRONIC KIDNEY DISEASE STAGING PER NKF: MALE [...] Normal 80 and above >32 mL/min Normal Co2 25.3 mmol/L 22.0-29.0 [facility] ([facility] CHRONIC KIDNEY DISEASE STAGING PER NKF: MALE [...] Normal 80 and above >32 mL/min Normal Na 139 mmol/L 136-145 [facility] ([facility] CHRONIC KIDNEY DISEASE STAGING PER NKF: MALE [...] Normal 80 and above >32 mL/min Normal K 5.5 mmol/L 3.5-5.1 Above high normal [facility] ([facility] CHRONIC KIDNEY DISEASE STAGING PER NKF: MALE [...] Normal 80 and above >32 mL/min Normal CA 9.7 mg/dL 8.6-10.2 [facility] ([facility] CHRONIC KIDNEY DISEASE STAGING PER NKF: MALE [...] Normal 80 and above >32 mL/min Normal CL 103.3 mmol/L 98.0-107.0 [facility] CHRONIC KIDNEY DISEASE STAGING PER NKF: MALE [...] Normal 80 and above >32 mL/min Normal Anion Gap 15 mmol/L [facility] ([facility] CHRONIC KIDNEY DISEASE STAGING PER NKF: MALE [...] Normal 80 and above >32 mL/min Normal eGFR Non-Afr. Guatemalan 25 # [facility] ([facility] CHRONIC KIDNEY DISEASE STAGING PER NKF: MALE [...] Normal 80 and above >32 mL/min Normal eGFR 29 # [facility] ( [facility] CHRONIC KIDNEY DISEASE STAGING PER NKF: MALE [...] Normal 80 and above >32 mL/min Normal ID Date Data Source [id number] 07/10/2020 01:53:00 PM EST [facility] ([facility] Name Value Range Interpretation Code Description Data Izabela rce(s) Supporting Document(s) Glu 115 mg/dL 70-110 Above high normal [facility] ([facility] CHRONIC KIDNEY DISEASE STAGING PER NKF: MALE [...] Normal 80 and above >32 mL/min Normal BUN 59 mg/dL 8-23 Above high normal [facility] ([facility] CHRONIC KIDNEY DISEASE STAGING PER NKF: MALE [...] Normal 80 and above >32 mL/min Normal Creat 2.2 mg/dL 0.7-1.2 Above high normal [facility] ([facility] CHRONIC KIDNEY DISEASE STAGING PER NKF: MALE [...] Normal 80 and above >32 mL/min Normal BUN/Creatinine Ratio 26.4 CALC [facility] ([facility] CHRONIC KIDNEY DISEASE STAGING PER NKF: MALE [...] Normal 80 and above >32 mL/min Normal Co2 24.1 mmol/L 22.0-29.0 [facility] ([facility] CHRONIC KIDNEY DISEASE STAGING PER NKF: MALE [...] Normal 80 and above >32 mL/min Normal CA 9.1 mg/dL 8.6-10.2 [facility] ([facility] CHRONIC KIDNEY DISEASE STAGING PER NKF: MALE [...] Normal 80 and above >32 mL/min Normal K 5.8 mmol/L 3.5-5.1 Above high normal [facility] ([facility] CHRONIC KIDNEY DISEASE STAGING PER NKF: MALE [...] Normal 80 and above >32 mL/min Normal Na 137 mmol/L 136-145 [facility] ([facility] CHRONIC KIDNEY DISEASE STAGING PER NKF: MALE [...] Normal 80 and above >32 mL/min Normal CL 104.8 mmol/L 98.0-107.0 [facility] ([facility] CHRONIC KIDNEY DISEASE STAGING PER NKF: MALE [...] Normal 80 and above >32 mL/min Normal Anion Gap 14 mmol/L [facility] ([facility] CHRONIC KIDNEY DISEASE STAGING PER NKF: MALE [...] Normal 80 and above >32 mL/min Normal eGFR 31 # [facility] ( [facility] CKD-EPI eGFR Non-Afr. Guatemalan 26 # [facility] ([facility] CKD-EPI ID Date Data Source [id number] 07/06/2020 01:55:00 PM EST [facility] ([facility] Name Value Range Interpretation Code Description Data Izabela rce(s) Supporting Document(s) BUN 52 mg/dL 8-23 Above high normal [facility] ([facility] CHRONIC KIDNEY DISEASE STAGING PER NKF: MALE [...] Normal 80 and above >32 mL/min Normal Glu 121 mg/dL 70-110 Above high normal [facility] ([facility] CHRONIC KIDNEY DISEASE STAGING PER NKF: MALE [...] Normal 80 and above >32 mL/min Normal Creat 2.5 mg/dL 0.7-1.2 Above high normal [facility] ([facility] CHRONIC KIDNEY DISEASE STAGING PER NKF: MALE [...] Normal 80 and above >32 mL/min Normal BUN/Creatinine Ratio 21.0 CALC [facility] ([facility] CHRONIC KIDNEY DISEASE STAGING PER NKF: MALE [...] Normal 80 and above >32 mL/min Normal Co2 23.6 mmol/L 22.0-29.0 [facility] ([facility] CHRONIC KIDNEY DISEASE STAGING PER NKF: MALE [...] Normal 80 and above >32 mL/min Normal CA 9.2 mg/dL 8.6-10.2 [facility] ([facility] CHRONIC KIDNEY DISEASE STAGING PER NKF: MALE [...] Normal 80 and above >32 mL/min Normal Na 136 mmol/L 136-145 [facility] ([facility] CHRONIC KIDNEY DISEASE STAGING PER NKF: MALE [...] Normal 80 and above >32 mL/min Normal K 6.0 mmol/L 3.5-5.1 Above high normal [facility] ([facility] CHRONIC KIDNEY DISEASE STAGING PER NKF: MALE [...] Normal 80 and above >32 mL/min Normal CL 106.3 mmol/L 98.0-107.0 [facility] ([facility] CHRONIC KIDNEY DISEASE STAGING PER NKF: MALE [...] Normal 80 and above >32 mL/min Normal eGFR 26 # [facility] ( [facility] CKD-EPI Anion Gap 12 mmol/L [facility] ([facility] CHRONIC KIDNEY DISEASE STAGING PER NKF: MALE [...] Normal 80 and above >32 mL/min Normal eGFR Non-Afr. Guatemalan 23 # [facility] ([facility] CKD-EPI ID Date Data Source [id number] 07/02/2020 01:47:00 PM EST [facility] ([facility] Name Value Range Interpretation Code Description Data Izabela rce(s) Supporting Document(s) Hemoglobin A1c/Hemoglobin.total in Blood 5.9 % 4.40-6.10 [facility] ([facility] NORMAL RANGES Age WBC RBC HGB HCT [...] HCT IS 5% LESS SOURCE FOR DATA: [employer] 1800 OPERATION MANUAL( AUTOMATED BLOOD COUNTS AND [...] Normal 80 and above >32 mL/min Normal ID Date Data Source [id number] 07/02/2020 01:47:00 PM ADRIANNA BELL ([facility] Name Value Range Interpretation Code Description Data Izabela rce(s) Supporting Document(s) Creat 2.6 mg/dL 0.7-1.2 Above high normal [facility] ([facility] NORMAL RANGES Age WBC RBC HGB HCT [...] HCT IS 5% LESS SOURCE FOR DATA: [employer] 1800 OPERATION MANUAL( AUTOMATED BLOOD COUNTS AND [...] Normal 80 and above >32 mL/min Normal BUN 52 mg/dL 8-23 Above high normal [facility] NORMAL RANGES Age WBC RBC HGB HCT [...] HCT IS 5% LESS SOURCE FOR DATA: [employer] 1800 OPERATION MANUAL( AUTOMATED BLOOD COUNTS AND [...] Normal 80 and above >32 mL/min Normal Glu 197 mg/dL 70-110 Above high normal [facility] ([facility] NORMAL RANGES Age WBC RBC HGB HCT [...] HCT IS 5% LESS SOURCE FOR DATA: [facility] 1800 OPERATION MANUAL( AUTOMATED BLOOD COUNTS [...] Normal 80 and above >32 mL/min Normal BUN/Creatinine Ratio 19.9 CALC [employer] ([facility] NORMAL RANGES Age WBC RBC HGB HCT [...] HCT IS 5% LESS SOURCE FOR DATA: [employer] 1800 OPERATION MANUAL( AUTOMATED BLOOD COUNTS AND [...] Normal 80 and above >32 mL/min Normal Na 137 mmol/L 136-145 [facility] ([facility] NORMAL RANGES Age WBC RBC HGB HCT [...] HCT IS 5% LESS SOURCE FOR DATA: [employer] 1800 OPERATION MANUAL( AUTOMATED BLOOD COUNTS AND [...] Normal 80 and above >32 mL/min Normal K 6.0 mmol/L 3.5-5.1 Above high normal [facility] ([facility] NORMAL RANGES Age WBC RBC HGB HCT [...] HCT IS 5% LESS SOURCE FOR DATA: [employer] 1800 OPERATION MANUAL( AUTOMATED BLOOD COUNTS AND [...] Normal 80 and above >32 mL/min Normal CL 105.5 mmol/L 98.0-107.0 [facility] ([facility] NORMAL RANGES Age WBC RBC HGB HCT [...] HCT IS 5% LESS SOURCE FOR DATA: [employer] 1800 OPERATION MANUAL( AUTOMATED BLOOD COUNTS AND [...] Normal 80 and above >32 mL/min Normal TP 6.5 g/dL 6.6-8.7 Below low normal [facility] ( [facility] NORMAL RANGES Age WBC RBC HGB HCT [...] HCT IS 5% LESS SOURCE FOR DATA: [employer] 1800 OPERATION MANUAL( AUTOMATED BLOOD COUNTS AND [...] Normal 80 and above >32 mL/min Normal CA 9.5 mg/dL 8.6-10.2 [facility] ([facility] NORMAL RANGES Age WBC RBC HGB HCT [...] HCT IS 5% LESS SOURCE FOR DATA: [employer] 1800 OPERATION MANUAL( AUTOMATED BLOOD COUNTS AND [...] Normal 80 and above >32 mL/min Normal Co2 22.2 mmol/L 22.0-29.0 [facility] ([facility] NORMAL RANGES Age WBC RBC HGB HCT [...] HCT IS 5% LESS SOURCE FOR DATA: [employer] 1800 OPERATION MANUAL( AUTOMATED BLOOD COUNTS AND [...] Normal 80 and above >32 mL/min Normal A/G Ratio 1.8 CALC [facility] ([facility] NORMAL RANGES Age WBC RBC HGB HCT [...] HCT IS 5% LESS SOURCE FOR DATA: [employer] 1800 OPERATION MANUAL( AUTOMATED BLOOD COUNTS AND [...] Normal 80 and above >32 mL/min Normal Alb 4.2 g/dL 3.5-5.2 [facility] ([facility] NORMAL RANGES Age WBC RBC HGB HCT [...] HCT IS 5% LESS SOURCE FOR DATA: [employer] 1800 OPERATION MANUAL( AUTOMATED BLOOD COUNTS AND [...] Normal 80 and above >32 mL/min Normal Alp 93.5 U/L 40-129 [facility] NORMAL RANGES Age WBC RBC HGB HCT [...] Normal 80 and above >32 mL/min Normal Globulin 2.3 CALC [facility] ([facility] NORMAL RANGES Age WBC RBC HGB HCT [...] HCT IS 5% LESS SOURCE FOR DATA: [employer] 1800 OPERATION MANUAL( AUTOMATED BLOOD COUNTS AND [...] Normal 80 and above >32 mL/min Normal Alt (SGPT) 10 U/L 0-41 [facility] ([facility] NORMAL RANGES Age WBC RBC HGB HCT [...] HCT IS 5% LESS SOURCE FOR DATA: [employer] 1800 OPERATION MANUAL( AUTOMATED BLOOD COUNTS AND [...] Normal 80 and above >32 mL/min Normal Ast (Sgot) 13 U/L 0-40 [facility] ([facility] NORMAL RANGES Age WBC RBC HGB HCT [...] HCT IS 5% LESS SOURCE FOR DATA: [employer] 1800 OPERATION MANUAL( AUTOMATED BLOOD COUNTS AND [...] Normal 80 and above >32 mL/min Normal Osmolality-Calculated 292.7 [facility]C [facility] ([facility] NORMAL RANGES Age WBC RBC HGB HCT [...] HCT IS 5% LESS SOURCE FOR DATA: [employer] 1800 OPERATION MANUAL( AUTOMATED BLOOD COUNTS AND [...] Normal 80 and above >32 mL/min Normal Tbili 0.20 mg/dL 0.0-1.2 [facility] ([facility] NORMAL RANGES Age WBC RBC HGB HCT [...] HCT IS 5% LESS SOURCE FOR DATA: [employer] 1800 OPERATION MANUAL( AUTOMATED BLOOD COUNTS AND [...] Normal 80 and above >32 mL/min Normal eGFR 25 # [facility] ( [facility] NORMAL RANGES Age WBC RBC HGB HCT [...] HCT IS 5% LESS SOURCE FOR DATA: [employer] 1800 OPERATION MANUAL( AUTOMATED BLOOD COUNTS AND [...] Normal 80 and above >32 mL/min Normal Anion Gap 15 mmol/L [facility] ([facility] NORMAL RANGES Age WBC RBC HGB HCT [...] HCT IS 5% LESS SOURCE FOR DATA: [employer] 1800 OPERATION MANUAL( AUTOMATED BLOOD COUNTS AND [...] Normal 80 and above >32 mL/min Normal eGFR Non-Afr. Guatemalan 22 # [facility] ([facility] NORMAL RANGES Age WBC RBC HGB HCT [...] HCT IS 5% LESS SOURCE FOR DATA: [employer] 1800 OPERATION MANUAL( AUTOMATED BLOOD COUNTS AND [...] Normal 80 and above >32 mL/min Normal ID Date Data Source [id number] 07/02/2020 01:47:00 PM EST [facility] ([facility] Name Value Range Interpretation Code Description Data Izabela rce(s) Supporting Document(s) WBC 3.9 10E3/uL 4.1-10.9 Below low normal [facility] ([facility] NORMAL RANGES Age WBC RBC HGB HCT [...] Normal 80 and above >32 mL/min Normal RBC 3.46 10E6/uL 4.20-6.30 Below low normal [facility] ([facility] NORMAL RANGES Age WBC RBC HGB HCT [...] HCT IS 5% LESS SOURCE FOR DATA: [employer] 1800 OPERATION MANUAL( AUTOMATED BLOOD COUNTS AND [...] Normal 80 and above >32 mL/min Normal HGB 10.5 g/dL 12.0-18.0 Below low normal [facility] ( [facility] NORMAL RANGES Age WBC RBC HGB HCT [...] HCT IS 5% LESS SOURCE FOR DATA: [employer] 1800 OPERATION MANUAL( AUTOMATED BLOOD COUNTS AND [...] Normal 80 and above >32 mL/min Normal HCT 32.9 % 37.0-51.0 Below low normal [facility] ( [facility] NORMAL RANGES Age WBC RBC HGB HCT [...] HCT IS 5% LESS SOURCE FOR DATA: [employer] 1800 OPERATION MANUAL( AUTOMATED BLOOD COUNTS AND [...] Normal 80 and above >32 mL/min Normal MCV 95.1 fL 80.0-97.0 [facility] ([facility] NORMAL RANGES Age WBC RBC HGB HCT [...] HCT IS 5% LESS SOURCE FOR DATA: [employer] 1800 OPERATION MANUAL( AUTOMATED BLOOD COUNTS AND [...] Normal 80 and above >32 mL/min Normal MCH 30.3 pg 26.0-32.0 [facility] ([facility] NORMAL RANGES Age WBC RBC HGB HCT [...] HCT IS 5% LESS SOURCE FOR DATA: [employer] 1800 OPERATION MANUAL( AUTOMATED BLOOD COUNTS AND [...] Normal 80 and above >32 mL/min Normal MCHC 31.9 g/dL 31.0-36.0 [facility] ([facility] NORMAL RANGES Age WBC RBC HGB HCT [...] HCT IS 5% LESS SOURCE FOR DATA: [employer] 1800 OPERATION MANUAL( AUTOMATED BLOOD COUNTS AND [...] Normal 80 and above >32 mL/min Normal PLT 313 10E3/uL 140-440 [facility] ([facility] NORMAL RANGES Age WBC RBC HGB HCT [...] HCT IS 5% LESS SOURCE FOR DATA: [employer] 1800 OPERATION MANUAL( AUTOMATED BLOOD COUNTS AND [...] Normal 80 and above >32 mL/min Normal Lym% 28.9 % 10.0-58.5 [facility] [facility] NORMAL RANGES Age WBC RBC HGB HCT [...] HCT IS 5% LESS SOURCE FOR DATA: [employer] 1800 OPERATION MANUAL( AUTOMATED BLOOD COUNTS AND [...] Normal 80 and above >32 mL/min Normal RDW-CV 13.5 % 11.5-14.5 [facility] ([facility] NORMAL RANGES Age WBC RBC HGB HCT [...] HCT IS 5% LESS SOURCE FOR DATA: [employer] 1800 OPERATION MANUAL( AUTOMATED BLOOD COUNTS AND [...] Normal 80 and above >32 mL/min Normal Neut% 59.8 % 37.0-92.0 [facility] ([facility] NORMAL RANGES Age WBC RBC HGB HCT [...] HCT IS 5% LESS SOURCE FOR DATA: [employer] 1800 OPERATION MANUAL( AUTOMATED BLOOD COUNTS AND [...] Normal 80 and above >32 mL/min Normal MXD% 11.3 % 0.1-24.0 [facility] ([facility] NORMAL RANGES Age WBC RBC HGB HCT [...] HCT IS 5% LESS SOURCE FOR DATA: [employer] 1800 OPERATION MANUAL( AUTOMATED BLOOD COUNTS AND [...] Normal 80 and above >32 mL/min Normal Lym# 1.1 10E3/uL 0.6-4.1 [facility] ([facility] NORMAL RANGES Age WBC RBC HGB HCT [...] HCT IS 5% LESS SOURCE FOR DATA: [employer] 1800 OPERATION MANUAL( AUTOMATED BLOOD COUNTS AND [...] Normal 80 and above >32 mL/min Normal MXD# 0.4 10E3/uL 0.0-1.8 [facility] ([facility] NORMAL RANGES Age WBC RBC HGB HCT [...] HCT IS 5% LESS SOURCE FOR DATA: [employer] 1800 OPERATION MANUAL( AUTOMATED BLOOD COUNTS AND [...] Normal 80 and above >32 mL/min Normal Neut# 2.4 % 2.0-7.8 [facility] ([facility] NORMAL RANGES Age WBC RBC HGB HCT [...] HCT IS 5% LESS SOURCE FOR DATA: [employer] 1800 OPERATION MANUAL( AUTOMATED BLOOD COUNTS AND [...] Normal 80 and above >32 mL/min Normal MPV 9.2 fL 9.0-13.0 [facility] ([facility] NORMAL RANGES Age WBC RBC HGB HCT [...] HCT IS 5% LESS SOURCE FOR DATA: [employer] 1800 OPERATION MANUAL( AUTOMATED BLOOD COUNTS AND [...] Normal 80 and above >32 mL/min Normal ID Date Data Source [id number] 06/25/2020 09:50:54 PM [facility] Name Value Range Interpretation Code Description Data Izabela rce(s) Supporting Document(s) Discharge Summary [facility] [id number]/QAXgdRDJaq0RjNXbwJCr6YQhcKRBaW3UeKVX4rQ5uMGN8ZAqFAzUoGfTzNOAh lbm FgHpgVHmSnJLMdInrPWpMnHZpwQuolpGXbWQ6NqNV4WOLnO40hUIGeOBUuN1TrCFZ1SqJ+Bl6PMHKovU BdEX7FWppT5V5BbzdYWz8sXU0LNaiyNuLXrmgvON8WD6HiYWlS9W3A3ZaTREZJcCXSqJwXx055nr1sAO 1pxH3wGSRfiuppR0I7C25Iqbohf+Fn8P3YWqNv5vbl VmIyF3/7v9c6dtgr0g6QGzWJzTR8YkJM/qsrf/vBD9fi+F8ojjzr+uQtiEkd6GBG6JoUtzKkneS7bc6U ++br3XZkkw0WZ/Uy5zdmS+FKFfuh++G504D6R+L1lZk9O27nFQ2gXT+Kg0zmsNiUoL8MV5fGXbmYChzc oT3e79pIh2oyAfheJLqfx0jHzMemyn2ikp3xt5zi9b Vick/ps3pggrtZqFWtxvYVeizWYveNE/Pzilorz14GNhAnUddsEuvMV+GSkqc4deQALzi5MstwbvXIjKna [file] vp foundation+heVV9pjHxm5odWprteAugJiuvnh3CyDE6ZyOTddg/ah807/adUcD+o+ZVGFGrLDnOaatsMGHBPtVj [file] cgMCBSDQogICAgICAvRjIgMjAgMCBSDQogICAgICAvRjMgMjMgMCBSDQogICAgICAvRjQgMjYgMCBSPj 1IWuHfDKGtSQ7tgfZmgIT6WKF+Ru6DBHEwAT5EsIVKD6RafKAmRTbjL0IJWA2URZT4KG3KcNEhWF3OcU TGN2TqoFBnBi2aSWHhs3ZrAk6nU9YFBOVPNLVhCMub VZqcLJJjFAe5A4I8SCPoL3GNQ539fJAqfAb6Wu0iT4CWAAmSVjOcOGhvDPkcIPRfSKy6F9D6CDFiK3ES H3ZsXfIfmzBrK5J+QqVsCGVHXM8ZXBWQJSs1O4C5zFZcX0J0pRsAmBZ8MT9QQS2EoBQmpSJvv02+PiAN WtHtEJRsO4PYMWTTVvBiDAllTIlfWNPwEKg7Z6X2UQ TvH8ENG7whF7j7OY9+WaQNDpIgXWFpUi1ODpGzCp5AYmFlII1olb2MRzjaNMWlQdoMSbo3F5vqrxo3nG KfFuO4V9N2QnS8nGIlZB7RF8E3sKLzXDX9EVNqyHT+Lc9Dx8XkZXRqAHe0C4opPACvRDUzPqAqcZ94W+ +1lnwevZH1O6a6VFKHjIYzlMiNayXrY0eQFQO0h4O7 ZCc/Xw2PBES8wHk9vKYfCMXqVUk4eV0hrKx7SmLrVT68VTZsWKhwrR5eKvg8W1Fqv9HuSr8pZg4ehONp Gh7HAnYnOUU3uoJvUfUJNlB1qAljgzfwDSO3A8z1nAV4Hq72u6jjthFwc7AyZoW6KZdlTOOcUkPsqcZy LLN4jzZxhH4cqbBcOn4NXUHgJUppnoDmQqIYNj5LYs DuSV56ZrvqfL1frUB+DQogICAgICAgICAgICAgICAgICAgICAgICAgICAgICAgICAgICAgICAgICAgIC AgICAgICAgICAgICAgICAgICAgICAgICAgICAgICAgICAgICAgICAgICAgICAgICAgICAgICAgDQogIC AgICAgICAgICAgICAgICAgICAgICAgICAgICAgICAg ICAgICAgICAgICAgICAgICAgICAgICAgICAgICAgICAgICAgICAgICAgICAgICAgICAgICAgICAgICAg ICAgICAgDQogICAgICAgICAgICAgICAgICAgICAgICAgICAgICAgICAgICAgICAgICAgICAgICAgICAg ICAgICAgICAgICAgICAgICAgICAgICAgICAgICAgIC AgICAgICAgICAgICAgICAgDQogICAgICAgICAgICAgICAgICAgICAgICAgICAgICAgICAgICAgICAgIC AgICAgICAgICAgICAgICAgICAgICAgICAgICAgICAgICAgICAgICAgICAgICAgICAgICAgICAgICAgDQ ogICAgICAgICAgICAgICAgICAgICAgICAgICAgICAg ICAgICAgICAgICAgICAgICAgICAgICAgICAgICAgICAgICAgICAgICAgICAgICAgICAgICAgICAgICAg ICAgICAgICAgDQogICAgICAgICAgICAgICAgICAgICAgICAgICAgICAgICAgICAgICAgICAgICAgICAg ICAgICAgICAgICAgICAgICAgICAgICAgICAgICAgIC AgICAgICAgICAgICAgICAgICAgDQogICAgICAgICAgICAgICAgICAgICAgICAgICAgICAgICAgICAgIC AgICAgICAgICAgICAgICAgICAgICAgICAgICAgICAgICAgICAgICAgICAgICAgICAgICAgICAgICAgIC AgDQogICAgICAgICAgICAgICAgICAgICAgICAgICAg ICAgICAgICAgICAgICAgICAgICAgICAgICAgICAgICAgICAgICAgICAgICAgICAgICAgICAgICAgICAg ICAgICAgICAgICAgDQogICAgICAgICAgICAgICAgICAgICAgICAgICAgICAgICAgICAgICAgICAgICAg ICAgICAgICAgICAgICAgICAgICAgICAgICAgICAgIC AgICAgICAgICAgICAgICAgICAgICAgDQogICAgICAgICAgICAgICAgICAgICAgICAgICAgICAgICAgIC AgICAgICAgICAgICAgICAgICAgICAgICAgICAgICAgICAgICAgICAgICAgICAgICAgICAgICAgICAgIC DuPMLrAFu5G6mnUFEmYZDaOO2yAAz4Cy4+DQoNCmVu XRB5eoIaxV6MLB9lu3AfFOfnHMDhp3OwOEd7ND2EBLZcULwbBO8XAPplab8BDKIsJQXnmQKQz2hdHiCv HCV9BNQjSuclJY2XMCWyB9vxaaWxEOIrZNTFEDqoWKMBWZbpSZCLMHBwFQVtDnEvEVvnDD9Jp9PwlZC8 DQo+Go8BEY2di3TgBAsaKYUcBK1dxm8GIPnRJhNuG6 QuhgV8FVVuEYEaYv4UVRVqAPNqvSBbFUIvZEMCVmMkL0WdqK28BPKVPv6+DQplbmRvYmoNCjMwIDAgb2 EgZCf5SO4RNIQmIIz0zGXuGCslM2ilicofYEN4oJ9gqslqAaofAWIyRgZPFP8rnfStuNqmES4EMTQ6EA NjWs5xZNOfVWLnKtY5REUUAP4TSFDdITYwePSuUXAy ZAREOL7WOSbcPEO6RAWwuxNfsKPcNByzWK3WHNPpjhJbUzznDEBLEIq+Nv2QJO0bt2ByCThqDCYsIB7k gt8IYSyJCrRlI7L0vICdB3C9VXdxLc3RLJZwWASjYxzrQKCKXYqtBS2JCK4lsrE9RA0NhDSaKVLxEEPx hPKcIBj6Q78rjSXgPKxaXD4TZOV+Jocelyn+Tv6DMOYaEY RhTTEiAmJaVHFYTpZmL3PpR0NCg6MgY6KeND74jWgvjzNuGUumIS3CVX5tPWPtKPVMEP8IeTJzxT1qem EkAIFoPARUJuFiV90ghNOaCOWrEOM4QJElQq3GQNKvV2YxdbSneZorcvEpHOQoTGDAST6NMEmmaaJyaP DhaBciII57hEisFK3ZFl0NFyMiTL0ctt2GlHChBf3F VECuMu9VECDoBABnVGHzMPO3ORCgXwQkKAvgRHPdNDBvNLU7ZWFcHBDrKE4JByAnALWkHiQ0UMpwDTZc NVFckm9FVGGwZVLdRCe4DrUxEYJdPBKkYSmsDJDgERYjDHO4NGGwDFZxLQ9ZLqKeIYVhMQM9JfMfMVOt UXHyva2KOCScXGMkJfb9GPCxWUYtYBZmUAneEQFyNR M0Apg9EHArKFMdTH4QBgNrQROjYDo7EDPdHNWhERHdzt1THVYzFPCzFVCmPrPdPFArWYIeRAxiGEZsTA S9SwX6GMKjDVQuUD6HOyKcDZCjTMztEXclULNpYKYfbu9BBKSbSWJkOfSxLlYyEGXoSFIjJAlzUGPxCV I2XKrhBNDdLCZnAT2WExBsBNKqMSnsBmEkHCGmGKDg jz4TWQKnMMMkPVV1ExOqAHWsNNSlHMybWWYfKAO3EHGsOPGwGQHaAS3WGbHxDVEvTWp3CSFiAVYaCQFx na2OGMEjTCCwEWwqEzRvAOWdZRAcEZzyWFOzQMVuPTJeGHMkUPDlZJ5TOpPpLZBmHnUiAbTvQPLcASWe ue1MTBXqZHJiMCX5CIWeNUWrXDLcBJpgRWVmIYFnDc R2MMZbZHDmKQ5AIhKvQISiDbF8RyeuNAFgJIAfbo0MXCYdIZLkKiGwMOVtSQLxGOJkBSlyVLOfERBwOM x0KZZxFJRqUJ6JBwOjVFQtHrA1ITErMMDpVFHmrv2SFJCyQBYkEzk0ElYzJLQnLDPhJBexXAMmNVW3LT HtHHOgQZRcRL1NKeDfVLHrUkZ5VSjzGWDbKPNflt1T EWOoGFSiTWj9FVGnCZPgKMZoXApeJGKyNVQ6CGAsAXDvHRCzOX7ERxLwZSqdBASLUnz3XOaqN8p0VJIw Gq3VW0Xvt2SuZqEcXIRVVVkdUS8ynnZuALCvSn4BZ4fIVcgpRlZ5MZX8AtYgHVAtQCF5TNo5KBq0JXyc ZLUmAlEuCz9iJTLwWnzzCdNdAWFmCOG1OqXhGjgeQI t2REQ0QEShRGM9CiZsYF2OOv8LSzW5XAZ7pDQwVr1UWvSxEZRUDjKcOK2FTCt= ID Date Data Source [id number] 06/20/2020 04:30:28 PM [facility] Value Range Interpretation Code Description Data Izabela rce(s) Supporting Document(s) Glucose [Mass/volume] in Capillary blood by Glucometer 123 mg/dL 70- 140 [facility] ID Date Data Source [id number] 06/20/2020 11:56:29 AM [facility] Value Range Interpretation Code Description Data Izabela rce(s) Supporting Document(s) Glucose [Mass/volume] in Capillary blood by Glucometer 126 mg/dL 70- 140 [facility] ID Date Data Source [id number] 06/20/2020 07:48:40 AM [facility] Value Range Interpretation Code Description Data Izabela rce(s) Supporting Document(s) Glucose [Mass/volume] in Capillary blood by Glucometer 89 mg/dL 70- 140 [facility] ID Date Data Source [id number] 06/20/2020 04:43:53 AM [facility] Value Range Interpretation Code Description Data Izabela rce(s) Supporting Document(s) Bicarbonate [Moles/volume] in Serum 20 mmol/L 22-29 L [facility] Chloride [Moles/volume] in Serum or Plasma 106 mmol/L 98-107 [facility] Creatinine [Mass/volume] in Serum or Plasma 2.84 mg/dL 0.70-1.20 H [facility] Glucose [Mass/volume] in Serum or Plasma 94 mg/dL 70-140 [facility] Potassium [Moles/volume] in Serum or Plasma 4.2 mmol/L 3.4-5.1 [facility] Sodium [Moles/volume] in Serum or Plasma 139 mmol/L 136-145 [facility] Urea nitrogen [Mass/volume] in Serum or Plasma 49 mg/dL 8-23 H [facility] Anion gap 3 in Serum or Plasma 13 mmol/L 8-15 [facility] Osmolality of Serum or Plasma by calculation 301 mosm/kg 275-300 H [facility] Creatinine/Urea nitrogen [Mass Ratio] in Serum or Plasma 17 [facility] Calcium [Mass/volume] in Serum or Plasma 8.0 mg/dL 8.8-10.2 L [facility] Glomerular filtration rate/1.73 sq M pre dicted among non-blacks [Volume Rate/Area] in Serum or Plasma by Creatinine-based formula (MDRD) >6 0 [facility] Glomerular filtration rate/1.73 sq M pre dicted among blacks [Volume Rate/Area] in Serum or Plasma by Creatinine-based formula (MDRD) >60 [facility] ID Date Data Source [id number] 06/20/2020 04:43:53 AM [facility] Name Value Range Interpretation Code Description Data Izabela rce(s) Supporting Document(s) Magnesium [Mass/volume] in Serum or Plasma 1.6 mg/dL 1.6-2.4 [facility] ID Date Data Source [id number] 06/20/2020 04:43:53 AM [facility] Value Range Interpretation Code Description Data Izabela rce(s) Supporting Document(s) Phosphate [Mass/volume] in Serum or Plasma 2.9 mg/dL 2.5-4.5 [facility] ID Date Data Source [id number] 06/20/2020 07:59:30 AM [facility] Name Value Range Interpretation Code Description Data Izabela rce(s) Supporting Document(s) Leukocytes [#/volume] in Blood by Automated count 8.1 10*3/uL 4-10 [facility] Erythrocytes [#/volume] in Blood by Automated count 3.45 10*6/uL 4.6- 6.1 [facility] Hemoglobin [Mass/volume] in Blood 10.6 g/dL 13.5-18 L [facility] Hematocrit [Volume Fraction] of Blood by Automated count 31.6 % 4 1-53 L [facility] Erythrocyte mean corpuscular volume [Entitic volume] by Auto mated count 91.6 fL 80-96 [facility] Erythrocyte mean corpuscular hemoglobin [Entitic mass] by Automated count 30.6 pg 27-33 [facility] Erythrocyte mean corpuscular hemoglobin concentration [Mass/volume] by Automated count 33.4 g/dL 32.0-36.0 [facility] Erythrocyte distribution width [Ratio] by Automated count 13.8 % 11.5-14.5 [facility] Platelets [#/volume] in Blood by Automated count 202 10*3/uL 150-400 [facility] ID Date Data Source [id number] 06/19/2020 09:55:21 PM [facility] Name Value Range Interpretation Code Description Data Izabela rce(s) Supporting Document(s) Glucose [Mass/volume] in Capillary blood by Glucometer 138 mg/dL 70- 140 [facility] ID Date Data Source [id number] 06/19/2020 09:13:48 PM [facility] Name Value Range Interpretation Code Description Data Izabela rce(s) Supporting Document(s) Leukocytes [#/volume] in Blood by Automated count 6.9 10*3/uL 4-10 [facility] Erythrocytes [#/volume] in Blood by Automated count 3.18 10*6/uL 4.6- 6.1 [facility] Hemoglobin [Mass/volume] in Blood 9.9 g/dL 13.5-18 [facility] Hematocrit [Volume Fraction] of Blood by Automated count 29.4 % 4 1-53 L [facility] Erythrocyte mean corpuscular volume [Entitic volume] by Auto mated count 92.6 fL 80-96 [facility] Erythrocyte mean corpuscular hemoglobin [Entitic mass] by Automated count 31.2 pg 27-33 [facility] Erythrocyte mean corpuscular hemoglobin concentration [Mass/volume] by Automated count 33.7 g/dL 32.0-36.0 [facility] al Erythrocyte distribution width [Ratio] by Automated count 14.0 % 11.5-14.5 [facility] Platelets [#/volume] in Blood by Automated count 189 10*3/uL 150-400 [facility] Differential cell count method - Blood [facility] Neutrophils/100 leukocytes in Blood by Automated count 66 % [facility] Lymphocytes/100 leukocytes in Blood by Automated count 16 % [facility] Monocytes/100 leukocytes in Blood by Automated count 14 % [facility] Eosinophils/100 leukocytes in Blood by Automated count 3 % [facility] Basophils/100 leukocytes in Blood by Automated count 1 % [facility] Neutrophils [#/volume] in Blood by Automated count 4.62 10*3/uL 1.8-7 .0 [facility] Lymphocytes [#/volume] in Blood by Automated count 1.08 10*3/uL 1.2-4 .0 L [facility] Monocytes [#/volume] in Blood by Automated count 0.97 10*3/uL 0-0.8 H [facility] Eosinophils [#/volume] in Blood by Automated count 0.19 10*3/uL 0-0.5 [facility] Basophils [#/volume] in Blood by Automated count 0.04 10*3/uL 0-0.2 [facility] Nucleated erythrocytes/100 leukocytes [Ratio] in Blood by Automated count 0 /100{WBCs} 0-0 [facility] ID Date Data Source [id number] 06/19/2020 06:49:27 PM [facility] Name Value Range Interpretation Code Description Data Izabela rce(s) Supporting Document(s) Magnesium [Mass/volume] in Serum or Plasma 1.7 mg/dL 1.6-2.4 [facility] ID Date Data Source [id number] 06/19/2020 06:49:27 PM [facility] Name Value Range Interpretation Code Description Data Izabela rce(s) Supporting Document(s) Bicarbonate [Moles/volume] in Serum 19 mmol/L 22-29 L [facility] Chloride [Moles/volume] in Serum or Plasma 105 mmol/L 98-107 [facility] Creatinine [Mass/volume] in Serum or Plasma 2.86 mg/dL 0.70-1.20 H [facility] Glucose [Mass/volume] in Serum or Plasma 135 mg/dL 70-140 [facility] Potassium [Moles/volume] in Serum or Plasma 4.1 mmol/L 3.4-5.1 [facility] Sodium [Moles/volume] in Serum or Plasma 138 mmol/L 136-145 [facility] Urea nitrogen [Mass/volume] in Serum or Plasma 51 mg/dL 8-23 H [facility] Anion gap 3 in Serum or Plasma 14 mmol/L 8-15 [facility] Osmolality of Serum or Plasma by calculation 301 mosm/kg 275-300 H [facility] Creatinine/Urea nitrogen [Mass Ratio] in Serum or Plasma 18 [facility] Calcium [Mass/volume] in Serum or Plasma 8.1 mg/dL 8.8-10.2 L [facility] Glomerular filtration rate/1.73 sq M pre dicted among non-blacks [Volume Rate/Area] in Serum or Plasma by Creatinine-based formula (MDRD) >6 0 [facility] Glomerular filtration rate/1.73 sq M pre dicted among blacks [Volume Rate/Area] in Serum or Plasma by Creatinine-based formula (MDRD) >60 [facility] ID Date Data Source [id number] 06/19/2020 06:49:27 PM [facility] Value Range Interpretation Code Description Data Izabela rce(s) Supporting Document(s) Phosphate [Mass/volume] in Serum or Plasma 3.0 mg/dL 2.5-4.5 [facility] ID Date Data Source [id number] 06/19/2020 04:56:13 PM [facility] Value Range Interpretation Code Description Data Izabela rce(s) Supporting Document(s) Glucose [Mass/volume] in Capillary blood by Glucometer 125 mg/dL 70- 140 [facility] ID Date Data Source [id number] 06/19/2020 11:34:14 AM [facility] Value Range Interpretation Code Description Data Izabela rce(s) Supporting Document(s) Glucose [Mass/volume] in Capillary blood by Glucometer 97 mg/dL 70- 140 [facility] ID Date Data Source [id number] 06/19/2020 08:54:24 AM [facility] Value Range Interpretation Code Description Data Izabela rce(s) Supporting Document(s) Calcium.ionized [Moles/volume] in Arterial blood 1.07 mmol/L 1.13-1.3 2 [facility] ID Date Data Source [id number] 06/19/2020 07:58:59 AM [facility] Value Range Interpretation Code Description Data Izabela rce(s) Supporting Document(s) Glucose [Mass/volume] in Capillary blood by Glucometer 95 mg/dL 70- 140 [facility] ID Date Data Source [id number] 06/19/2020 04:54:58 AM EST [facility] Name Value Range Interpretation Code Description Data Izabela rce(s) Supporting Document(s) Leukocytes [#/volume] in Blood by Automated count 7.3 10*3/uL 4-10 [facility] Erythrocytes [#/volume] in Blood by Automated count 3.48 10*6/uL 4.6- 6.1 L [facility] Hemoglobin [Mass/volume] in Blood 10.7 g/dL 13.5-18 L [facility] Hematocrit [Volume Fraction] of Blood by Automated count 32.4 % 4 1-53 L [facility] Erythrocyte mean corpuscular volume [Entitic volume] by Auto mated count 93.1 fL 80-96 [facility] Erythrocyte mean corpuscular hemoglobin [Entitic mass] by Automated count 30.8 pg 27-33 [facility] Erythrocyte mean corpuscular hemoglobin concentration [Mass/volume] by Automated count 33.1 g/[facility]0-[facility] distribution width [Ratio] by Automated count 14.5 % 11.5-14.5 [facility] Platelets [#/volume] in Blood by Automated count 202 10*3/uL 150-400 [facility] Differential cell count method - Blood [facility] Neutrophils/100 leukocytes in Blood by Automated count 64 % [facility] Lymphocytes/100 leukocytes in Blood by Automated count 17 % [facility] Monocytes/100 leukocytes in Blood by Automated count 14 % [facility] Eosinophils/100 leukocytes in Blood by Automated count 4 % [facility] Basophils/100 leukocytes in Blood by Automated count 1 % [facility] Neutrophils [#/volume] in Blood by Automated count 4.68 10*3/uL 1.8-7 .0 [facility] Lymphocytes [#/volume] in Blood by Automated count 1.27 10*3/uL 1.2-4 .0 [facility] Monocytes [#/volume] in Blood by Automated count 1.04 10*3/uL 0-0.8 H [facility] Eosinophils [#/volume] in Blood by Automated count 0.28 10*3/uL 0-0.5 [facility] Basophils [#/volume] in Blood by Automated count 0.04 10*3/uL 0-0.2 [facility] Nucleated erythrocytes/100 leukocytes [Ratio] in Blood by Automated count 0 /100{WBCs} 0-0 [facility] ID Date Data Source [id number] 06/19/2020 05:13:02 AM [facility] Value Range Interpretation Code Description Data Izabela rce(s) Supporting Document(s) Bicarbonate [Moles/volume] in Serum 18 mmol/L 22-29 L [facility] Chloride [Moles/volume] in Serum or Plasma 105 mmol/L 98-107 [facility] Creatinine [Mass/volume] in Serum or Plasma 3.07 mg/dL 0.70-1.20 H [facility] Glucose [Mass/volume] in Serum or Plasma 142 mg/dL 70-140 H [facility] Potassium [Moles/volume] in Serum or Plasma 3.5 mmol/L 3.4-5.1 [facility] Sodium [Moles/volume] in Serum or Plasma 133 mmol/L 136-145 L [facility] Urea nitrogen [Mass/volume] in Serum or Plasma 48 mg/dL 8-23 H [facility] Anion gap 3 in Serum or Plasma 10 mmol/L 8-15 [facility] Osmolality of Serum or Plasma by calculation 291 mosm/kg 275-300 [facility] Creatinine/Urea nitrogen [Mass Ratio] in Serum or Plasma 16 [facility] Calcium [Mass/volume] in Serum or Plasma 7.7 mg/dL 8.8-10.2 L [facility] Glomerular filtration rate/1.73 sq M pre dicted among non-blacks [Volume Rate/Area] in Serum or Plasma by Creatinine-based formula (MDRD) >6 0 [facility] Glomerular filtration rate/1.73 sq M pre dicted among blacks [Volume Rate/Area] in Serum or Plasma by Creatinine-based formula (MDRD) >60 [facility] ID Date Data Source [id number] 06/19/2020 05:13:02 AM [facility] Name Value Range Interpretation Code Description Data Izabela rce(s) Supporting Document(s) Magnesium [Mass/volume] in Serum or Plasma 1.8 mg/dL 1.6-2.4 [facility] ID Date Data Source [id number] 06/19/2020 05:13:02 AM [facility] Value Range Interpretation Code Description Data Izabela rce(s) Supporting Document(s) Phosphate [Mass/volume] in Serum or Plasma 2.8 mg/dL 2.5-4.5 [facility] ID Date Data Source [id number] 06/18/2020 09:33:02 PM [facility] Value Range Interpretation Code Description Data Izabela rce(s) Supporting Document(s) Glucose [Mass/volume] in Capillary blood by Glucometer 157 mg/dL 70- 140 H [facility] ID Date Data Source [id number] 06/18/2020 08:09:53 PM [facility] Value Range Interpretation Code Description Data Izabela rce(s) Supporting Document(s) Glucose [Mass/volume] in Capillary blood by Glucometer 128 mg/dL 70- 140 [facility] ID Date Data Source [id number] 06/18/2020 07:20:48 PM [facility] Value Range Interpretation Code Description Data Izabela rce(s) Supporting Document(s) Magnesium [Mass/volume] in Serum or Plasma 1.9 mg/dL 1.6-2.4 [facility] ID Date Data Source [id number] 06/18/2020 07:20:48 PM [facility] Value Range Interpretation Code Description Data Izabela rce(s) Supporting Document(s) Phosphate [Mass/volume] in Serum or Plasma 3.4 mg/dL 2.5-4.5 [facility] ID Date Data Source [id number] 06/18/2020 07:20:48 PM [facility] Value Range Interpretation Code Description Data Izabela rce(s) Supporting Document(s) Bicarbonate [Moles/volume] in Serum 19 mmol/L 22-29 L [facility] Chloride [Moles/volume] in Serum or Plasma 102 mmol/L 98-107 [facility] Creatinine [Mass/volume] in Serum or Plasma 3.44 mg/dL 0.70-1.20 H [facility] Glucose [Mass/volume] in Serum or Plasma 201 mg/dL 70-140 H [facility] Potassium [Moles/volume] in Serum or Plasma 3.7 mmol/L 3.4-5.1 [facility] Sodium [Moles/volume] in Serum or Plasma 131 mmol/L 136-145 L [facility] Urea nitrogen [Mass/volume] in Serum or Plasma 53 mg/dL 8-23 H [facility] Anion gap 3 in Serum or Plasma 10 mmol/L 8-15 [facility] Osmolality of Serum or Plasma by calculation 292 mosm/kg 275-300 [facility] Creatinine/Urea nitrogen [Mass Ratio] in Serum or Plasma 15 [facility] Calcium [Mass/volume] in Serum or Plasma 7.9 mg/dL 8.8-10.2 L [facility] Glomerular filtration rate/1.73 sq M pre dicted among non-blacks [Volume Rate/Area] in Serum or Plasma by Creatinine-based formula (MDRD) >6 0 [facility] Glomerular filtration rate/1.73 sq M pre dicted among blacks [Volume Rate/Area] in Serum or Plasma by Creatinine-based formula (MDRD) >60 [facility] ID Date Data Source [id number] 06/18/2020 04:44:18 PM [facility] Name Value Range Interpretation Code Description Data Izabela rce(s) Supporting Document(s) Glucose [Mass/volume] in Capillary blood by Glucometer 118 mg/dL 70- 140 [facility] ID Date Data Source [id number] 06/18/2020 12:18:59 PM [facility] Name Value Range Interpretation Code Description Data Izabela rce(s) Supporting Document(s) Glucose [Mass/volume] in Capillary blood by Glucometer 110 mg/dL 70- 140 [facility] ID Date Data Source [id number] 06/18/2020 09:24:44 AM [facility] Value Range Interpretation Code Description Data Izabela rce(s) Supporting Document(s) Bicarbonate [Moles/volume] in Serum 20 mmol/L 22-29 L [facility] Chloride [Moles/volume] in Serum or Plasma 103 mmol/L 98-107 [facility] Creatinine [Mass/volume] in Serum or Plasma 3.49 mg/dL 0.70-1.20 H [facility] Glucose [Mass/volume] in Serum or Plasma 185 mg/dL 70-140 H [facility] Potassium [Moles/volume] in Serum or Plasma 3.6 mmol/L 3.4-5.1 [facility] Sodium [Moles/volume] in Serum or Plasma 134 mmol/L 136-145 L [facility] Urea nitrogen [Mass/volume] in Serum or Plasma 47 mg/dL 8-23 H [facility] Anion gap 3 in Serum or Plasma 10 mmol/L 8-15 [facility] Osmolality of Serum or Plasma by calculation 294 mosm/kg 275-300 [facility] Creatinine/Urea nitrogen [Mass Ratio] in Serum or Plasma 14 [facility] Calcium [Mass/volume] in Serum or Plasma 7.9 mg/dL 8.8-10.2 L [facility] Glomerular filtration rate/1.73 sq M pre dicted among non-blacks [Volume Rate/Area] in Serum or Plasma by Creatinine-based formula (MDRD) >6 0 [facility] Glomerular filtration rate/1.73 sq M pre dicted among blacks [Volume Rate/Area] in Serum or Plasma by Creatinine-based formula (MDRD) >60 [facility] ID Date Data Source [id number] 06/18/2020 09:24:44 AM [facility] Name Value Range Interpretation Code Description Data Izabela rce(s) Supporting Document(s) Magnesium [Mass/volume] in Serum or Plasma 2.0 mg/dL 1.6-2.4 [facility] ID Date Data Source [id number] 06/18/2020 09:24:44 AM [facility] Name Value Range Interpretation Code Description Data Izabela rce(s) Supporting Document(s) Phosphate [Mass/volume] in Serum or Plasma 3.0 mg/dL 2.5-4.5 [facility] ID Date Data Source [id number] 06/18/2020 07:58:07 AM [facility] Value Range Interpretation Code Description Data Izabela rce(s) Supporting Document(s) Glucose [Mass/volume] in Capillary blood by Glucometer 127 mg/dL 70- 140 [facility] ID Date Data Source [id number] 06/18/2020 05:30:36 AM [facility] US RENAL OR AORTA COMPLETE [id number] RE SULTInterpreted by:VALENTIN CaballeroROCEDURE INFORMATION: Exam: US Retroperitoneal; Complete; Kidneys and Bladder Exam date and time: 06/18/2020 3:45 AM Age: 84 years old Clinical indication: Screening exam; Other: Nephrostomy tube not having enough urine output; Prior surgery TECHNIQUE: Imaging protocol: Real-time ultrasound of the retroperitoneum with image documentation. Complete exam focused on the kidneys and bladder. COMPARISON: XA IR NEPHROSTOMY INSERTION CHANGE 06/14/2020 7:29 PM FINDINGS: Right kidney: The right kidney measures 10.3 x 5.2 x 5.7 cm. The right renal cortical thickness and echotexture are normal. No right hydronephrosis is identified. There is a 2.2 x 2.8 x 2.4 cm cystic appearing structure in the right kidney. It contains a thin septation. A linear echogenic structure in the right kidney is consistent with a nephrostomy catheter. Left kidney: The left kidney measures 9.3 x 4.4 x 4.4 cm. The left renal cortical thickness and echot exture are normal. Left hydronephrosis is again identified. A linear echogenic structure in the left renal pelvis is consistent with the nephrectomy tube. There is a trace amount of fluid adjacent to the left kidney. Urinary bladder: Not identified. IMPRESSION: 1. Left hydronephrosis. 2. Bilateral nephrostomy catheters. 3. Additional findings as above. THIS DOCUMENT HAS BEEN ELECTRONICALLY SIGNED BY JAMILAH GRIFFITHS MDThis document has been electronically signed by Jamilah Griffiths MD on 06/18/2020 5:30 AM Name Value Range Interpretation Code Description Data Izabela rce(s) Supporting Document(s) ID Date Data Source [id number] 06/18/2020 01:34:15 AM [facility] Name Value Range Interpretation Code Description Data Izabela rce(s) Supporting Document(s) Leukocytes [#/volume] in Blood by Automated count 8.0 10*3/uL 4-10 [facility] Erythrocytes [#/volume] in Blood by Automated count 3.77 10*6/uL 4.6- 6.1 L [facility] Hemoglobin [Mass/volume] in Blood 11.6 g/dL 13.5-18 L [facility] Hematocrit [Volume Fraction] of Blood by Automated count 34.7 % 4 1-53 L [facility] Erythrocyte mean corpuscular volume [Entitic volume] by Auto mated count 92.0 fL 80-96 [facility] Erythrocyte mean corpuscular hemoglobin [Entitic mass] by Automated count 30.7 pg 27-33 [facility] Erythrocyte mean corpuscular hemoglobin concentration [Mass/volume] by Automated count 33.4 g/dL 32.0-36.0 [facility] Erythrocyte distribution width [Ratio] by Automated count 14.2 % 11.5-14.5 [facility] Platelets [#/volume] in Blood by Automated count 207 10*3/uL 150-400 [facility] Differential cell count method - Blood [facility] Neutrophils/100 leukocytes in Blood by Automated count 69 % [facility] Lymphocytes/100 leukocytes in Blood by Automated count 14 % [facility] Monocytes/100 leukocytes in Blood by Automated count 14 % [facility] Eosinophils/100 leukocytes in Blood by Automated count 3 % [facility] Basophils/100 leukocytes in Blood by Automated count 0 % [facility] Neutrophils [#/volume] in Blood by Automated count 5.62 10*3/uL 1.8-7 .0 [facility] Lymphocytes [#/volume] in Blood by Automated count 1.08 10*3/uL 1.2-4 .0 L [facility] Monocytes [#/volume] in Blood by Automated count 1.08 10*3/uL 0-0.8 H [facility] Eosinophils [#/volume] in Blood by Automated count 0.20 10*3/uL 0-0.5 [facility] Basophils [#/volume] in Blood by Automated count 0.02 10*3/uL 0-0.2 [facility] Nucleated erythrocytes/100 leukocytes [Ratio] in Blood by Automated count 0 /100{WBCs} 0-0 [facility] ID Date Data Source [id number] 06/18/2020 02:05:11 AM [facility] Name Value Range Interpretation Code Description Data Izabela rce(s) Supporting Document(s) Bicarbonate [Moles/volume] in Serum 18 mmol/L 22-29 L [facility] Chloride [Moles/volume] in Serum or Plasma 106 mmol/L 98-107 [facility] Creatinine [Mass/volume] in Serum or Plasma 3.69 mg/dL 0.70-1.20 H [facility] Glucose [Mass/volume] in Serum or Plasma 110 mg/dL 70-140 [facility] Potassium [Moles/volume] in Serum or Plasma 4.0 mmol/L 3.4-5.1 [facility] Sodium [Moles/volume] in Serum or Plasma 135 mmol/L 136-145 L [facility] Urea nitrogen [Mass/volume] in Serum or Plasma 53 mg/dL 8-23 H [facility] Anion gap 3 in Serum or Plasma 11 mmol/L 8-15 [facility] Osmolality of Serum or Plasma by calculation 294 mosm/kg 275-300 [facility] Creatinine/Urea nitrogen [Mass Ratio] in Serum or Plasma 14 [facility] Calcium [Mass/volume] in Serum or Plasma 7.8 mg/dL 8.8-10.2 L [facility] Glomerular filtration rate/1.73 sq M pre dicted among non-blacks [Volume Rate/Area] in Serum or Plasma by Creatinine-based formula (MDRD) >6 0 [facility] Glomerular filtration rate/1.73 sq M pre dicted among blacks [Volume Rate/Area] in Serum or Plasma by Creatinine-based formula (MDRD) >60 [facility] ID Date Data Source [id number] 06/18/2020 02:05:11 AM [facility] Value Range Interpretation Code Description Data Izabela rce(s) Supporting Document(s) Phosphate [Mass/volume] in Serum or Plasma 3.8 mg/dL 2.5-4.5 [facility] ID Date Data Source [id number] 06/18/2020 02:05:11 AM [facility] Value Range Interpretation Code Description Data Izabela rce(s) Supporting Document(s) Magnesium [Mass/volume] in Serum or Plasma 2.1 mg/dL 1.6-2.4 [facility] ID Date Data Source [id number] 06/17/2020 09:31:47 PM [facility] Value Range Interpretation Code Description Data Izabela rce(s) Supporting Document(s) Glucose [Mass/volume] in Capillary blood by Glucometer 111 mg/dL 70- 140 [facility] ID Date Data Source [id number] 06/17/2020 05:34:58 PM [facility] Value Range Interpretation Code Description Data Izabela rce(s) Supporting Document(s) Magnesium [Mass/volume] in Serum or Plasma 2.4 mg/dL 1.6-2.4 [facility] ID Date Data Source [id number] 06/17/2020 05:34:58 PM [facility] Value Range Interpretation Code Description Data Izabela rce(s) Supporting Document(s) Bicarbonate [Moles/volume] in Serum 21 mmol/L 22-29 L [facility] Chloride [Moles/volume] in Serum or Plasma 105 mmol/L 98-107 [facility] Creatinine [Mass/volume] in Serum or Plasma 4.18 mg/dL 0.70-1.20 H [facility] Glucose [Mass/volume] in Serum or Plasma 111 mg/dL 70-140 [facility] Potassium [Moles/volume] in Serum or Plasma 4.5 mmol/L 3.4-5.1 [facility] Sodium [Moles/volume] in Serum or Plasma 137 mmol/L 136-145 [facility] Urea nitrogen [Mass/volume] in Serum or Plasma 57 mg/dL 8-23 H [facility] Anion gap 3 in Serum or Plasma 11 mmol/L 8-15 [facility] Osmolality of Serum or Plasma by calculation 300 mosm/kg 275-300 [facility] Creatinine/Urea nitrogen [Mass Ratio] in Serum or Plasma 14 [facility] Calcium [Mass/volume] in Serum or Plasma 7.9 mg/dL 8.8-10.2 L [facility] Glomerular filtration rate/1.73 sq M pre dicted among non-blacks [Volume Rate/Area] in Serum or Plasma by Creatinine-based formula (MDRD) >6 0 [facility] Glomerular filtration rate/1.73 sq M pre dicted among blacks [Volume Rate/Area] in Serum or Plasma by Creatinine-based formula (MDRD) >60 [facility] ID Date Data Source [id number] 06/17/2020 05:34:58 PM [facility] Name Value Range Interpretation Code Description Data Izabela rce(s) Supporting Document(s) Phosphate [Mass/volume] in Serum or Plasma 4.1 mg/dL 2.5-4.5 [facility] ID Date Data Source [id number] 06/17/2020 04:53:19 PM [facility] Name Value Range Interpretation Code Description Data Izabela rce(s) Supporting Document(s) Glucose [Mass/volume] in Capillary blood by Glucometer 105 mg/dL 70- 140 [facility] ID Date Data Source [id number] 06/17/2020 01:12:43 PM [facility] Value Range Interpretation Code Description Data Izabela rce(s) Supporting Document(s) [facility] ASYPLf3bFaGLUrEq53/TGZimXIRqw2BsMCayOYs5VHrrABBsQ2DhPJU4fQ3mZQI9PEeHTeMgOcSaCJVb lbm [file] ZIHAYRIPFVK+7WDcwRcsXi+d7bcRTMVQG5vZDZ363j KZi6jXsjb/jwEB20hy+5c0NwTVnZ0HNb/mOzfdXWj+AWiwAuzp2sa38osIEog166vC+Ewjdrl+iTLq7F PSC4bSXnXIhMFS4c6XB6seFk0NjukmcxqTb9u05vy3Sp1tCPb9NZGjoXT4kkfHpwig9d6Q09Rm4nHUey dyWFPNO3CJ05JqA3AO9q+9FGfnOaBshfkulspREicN aXbnKIznSg8+wm9CIjB4ZIxXmVgO1rst0rgX96+Now+W05n+2+sM4FeEpNAfur1fHVs1X2BeTZTMbpV+ Qt707AmrfUj64loiYosJ8x6oANqfTn/5YRxYkLPzH25HBJNTOBKngwaKNzB7BKWs/IoYcUZMCiUZDlB+ PR4n4+623sOVvAs16laveDREpVEfZHMRrET8iic/kR bEdVL1CVpZvd/St6CKMIprznLuhgrQtef6ls3/RCCAIXTsDZRs6SowvngCi1szGkVhoFoyncbnQE0qTt A8KRphF4DCosSaYCPEkigB6FucbsCn3EAiG1n9fh+hmUEAPR+nwOpRGjKAFhuVlO3DIVxal76xw7t9RF M5DDFALDIveaoOTP0CQJeD3gmoNT+az8qQXGkj5+buckler and lacer [file] [id number] ID Date Data Source [id number] 06/17/2020 11:42:47 AM [facility] Value Range Interpretation Code Description Data Izabela rce(s) Supporting Document(s) Glucose [Mass/volume] in Capillary blood by Glucometer 82 mg/dL 70- 140 [facility] ID Date Data Source [id number] 06/17/2020 07:46:26 AM [facility] Value Range Interpretation Code Description Data Izabela rce(s) Supporting Document(s) Glucose [Mass/volume] in Capillary blood by Glucometer 119 mg/dL 70- 140 [facility] ID Date Data Source [id number] 06/17/2020 08:02:55 AM [facility] Value Range Interpretation Code Description Data Izabela rce(s) Supporting Document(s) Bicarbonate [Moles/volume] in Serum 18 mmol/L 22-29 L [facility] Chloride [Moles/volume] in Serum or Plasma 105 mmol/L 98-107 [facility] Creatinine [Mass/volume] in Serum or Plasma 4.02 mg/dL 0.70-1.20 H [facility] Glucose [Mass/volume] in Serum or Plasma 112 mg/dL 70-140 [facility] Potassium [Moles/volume] in Serum or Plasma 4.0 mmol/L 3.4-5.1 [facility] Sodium [Moles/volume] in Serum or Plasma 136 mmol/L 136-145 [facility] Urea nitrogen [Mass/volume] in Serum or Plasma 54 mg/dL 8-23 H [facility] Anion gap 3 in Serum or Plasma 12 mmol/L 8-15 [facility] Osmolality of Serum or Plasma by calculation 297 mosm/kg 275-300 [facility] Creatinine/Urea nitrogen [Mass Ratio] in Serum or Plasma 13 [facility] Calcium [Mass/volume] in Serum or Plasma 7.8 mg/dL 8.8-10.2 L [facility] Glomerular filtration rate/1.73 sq M pre dicted among non-blacks [Volume Rate/Area] in Serum or Plasma by Creatinine-based formula (MDRD) >6 0 [facility] Glomerular filtration rate/1.73 sq M pre dicted among blacks [Volume Rate/Area] in Serum or Plasma by Creatinine-based formula (MDRD) >60 [facility] ID Date Data Source [id number] 06/17/2020 08:02:55 AM [facility] Name Value Range Interpretation Code Description Data Izabela rce(s) Supporting Document(s) Magnesium [Mass/volume] in Serum or Plasma 2.9 mg/dL 1.6-2.4 H [facility] ID Date Data Source [id number] 06/17/2020 08:02:55 AM [facility] Name Value Range Interpretation Code Description Data Izabela rce(s) Supporting Document(s) Phosphate [Mass/volume] in Serum or Plasma 3.8 mg/dL 2.5-4.5 [facility] ID Date Data Source [id number] 06/17/2020 01:14:12 AM [facility] Name Value Range Interpretation Code Description Data Izabela rce(s) Supporting Document(s) Leukocytes [#/volume] in Blood by Automated count 8.1 10*3/uL 4-10 [facility] Erythrocytes [#/volume] in Blood by Automated count 3.91 10*6/uL 4.6- 6.1 L [facility] Hemoglobin [Mass/volume] in Blood 12.1 g/dL 13.5-18 L [facility] Hematocrit [Volume Fraction] of Blood by Automated count 36.9 % 4 1-53 L [facility] Erythrocyte mean corpuscular volume [Entitic volume] by Auto mated count 94.4 fL 80-96 [facility] Erythrocyte mean corpuscular hemoglobin [Entitic mass] by Automated count 31.0 pg 27-33 [facility] Erythrocyte mean corpuscular hemoglobin concentration [Mass/volume] by Automated count 32.8 g[facility] width [Ratio] by Automated count 14.6 % 11.5-14.5 H [facility] Platelets [#/volume] in Blood by Automated count 201 10*3/uL 150-400 [facility] Differential cell count method - Blood [facility] Neutrophils/100 leukocytes in Blood by Automated count 66 % [facility] Lymphocytes/100 leukocytes in Blood by Automated count 17 % [facility] Monocytes/100 leukocytes in Blood by Automated count 14 % [facility] Eosinophils/100 leukocytes in Blood by Automated count 3 % [facility] Basophils/100 leukocytes in Blood by Automated count 0 % [facility] Neutrophils [#/volume] in Blood by Automated count 5.38 10*3/uL 1.8-7 .0 [facility] Lymphocytes [#/volume] in Blood by Automated count 1.39 10*3/uL 1.2-4 .0 [facility] Monocytes [#/volume] in Blood by Automated count 1.11 10*3/uL 0-0.8 H [facility] Eosinophils [#/volume] in Blood by Automated count 0.21 10*3/uL 0-0.5 [facility] Basophils [#/volume] in Blood by Automated count 0.03 10*3/uL 0-0.2 [facility] Nucleated erythrocytes/100 leukocytes [Ratio] in Blood by Automated count 0 /100{WBCs} 0-0 [facility] ID Date Data Source [id number] 06/17/2020 01:44:49 AM EST [facility] Name Value Range Interpretation Code Description Data Izabela rce(s) Supporting Document(s) Phosphate [Mass/volume] in Serum or Plasma 4.0 mg/dL 2.5-4.5 [facility] ID Date Data Source [id number] 06/17/2020 01:44:49 AM [facility] Name Value Range Interpretation Code Description Data Izabela rce(s) Supporting Document(s) Bicarbonate [Moles/volume] in Serum 17 mmol/L 22-29 L [facility] Chloride [Moles/volume] in Serum or Plasma 106 mmol/L 98-107 [facility] Creatinine [Mass/volume] in Serum or Plasma 4.71 mg/dL 0.70-1.20 H [facility] Glucose [Mass/volume] in Serum or Plasma 117 mg/dL 70-140 [facility] Potassium [Moles/volume] in Serum or Plasma 4.5 mmol/L 3.4-5.1 [facility] Sodium [Moles/volume] in Serum or Plasma 137 mmol/L 136-145 [facility] Urea nitrogen [Mass/volume] in Serum or Plasma 57 mg/dL 8-23 H [facility] Anion gap 3 in Serum or Plasma 14 mmol/L 8-15 [facility] Osmolality of Serum or Plasma by calculation 301 mosm/kg 275-300 H [facility] Creatinine/Urea nitrogen [Mass Ratio] in Serum or Plasma 12 [facility] Calcium [Mass/volume] in Serum or Plasma 7.6 mg/dL 8.8-10.2 [facility] Glomerular filtration rate/1.73 sq M pre dicted among non-blacks [Volume Rate/Area] in Serum or Plasma by Creatinine-based formula (MDRD) >6 0 [facility] Glomerular filtration rate/1.73 sq M pre dicted among blacks [Volume Rate/Area] in Serum or Plasma by Creatinine-based formula (MDRD) >60 [facility] ID Date Data Source [id number] 06/17/2020 01:44:49 AM [facility] Value Range Interpretation Code Description Data Izabela rce(s) Supporting Document(s) Magnesium [Mass/volume] in Serum or Plasma 1.4 mg/dL 1.6-2.4 [facility] ID Date Data Source [id number] 06/16/2020 09:12:35 PM [facility] Value Range Interpretation Code Description Data Izabela rce(s) Supporting Document(s) Glucose [Mass/volume] in Capillary blood by Glucometer 116 mg/dL 70- 140 [facility] ID Date Data Source [id number] 06/16/2020 07:40:51 PM [facility] Value Range Interpretation Code Description Data Izabela rce(s) Supporting Document(s) Bicarbonate [Moles/volume] in Serum 21 mmol/L 22-29 L [facility] Chloride [Moles/volume] in Serum or Plasma 105 mmol/L 98-107 [facility] Creatinine [Mass/volume] in Serum or Plasma 4.89 mg/dL 0.70-1.20 H [facility] Glucose [Mass/volume] in Serum or Plasma 125 mg/dL 70-140 [facility] Potassium [Moles/volume] in Serum or Plasma 4.7 mmol/L 3.4-5.1 [facility] Sodium [Moles/volume] in Serum or Plasma 139 mmol/L 136-145 [facility] Urea nitrogen [Mass/volume] in Serum or Plasma 61 mg/dL 8-23 H [facility] Anion gap 3 in Serum or Plasma 13 mmol/L 8-15 [facility] Osmolality of Serum or Plasma by calculation 307 mosm/kg 275-300 H [facility] Creatinine/Urea nitrogen [Mass Ratio] in Serum or Plasma 13 [facility] Calcium [Mass/volume] in Serum or Plasma 8.0 mg/dL 8.8-10.2 [facility] Glomerular filtration rate/1.73 sq M pre dicted among non-blacks [Volume Rate/Area] in Serum or Plasma by Creatinine-based formula (MDRD) >6 0 [facility] Glomerular filtration rate/1.73 sq M pre dicted among blacks [Volume Rate/Area] in Serum or Plasma by Creatinine-based formula (MDRD) >60 [facility] ID Date Data Source [id number] 06/16/2020 07:40:51 PM [facility] Value Range Interpretation Code Description Data Izabela rce(s) Supporting Document(s) Magnesium [Mass/volume] in Serum or Plasma 1.5 mg/dL 1.6-2.4 [facility] ID Date Data Source [id number] 06/16/2020 07:40:51 PM [facility] Value Range Interpretation Code Description Data Izabela rce(s) Supporting Document(s) Phosphate [Mass/volume] in Serum or Plasma 3.8 mg/dL 2.5-4.5 [facility] ID Date Data Source [id number] 06/16/2020 04:37:53 PM [facility] Name Value Range Interpretation Code Description Data Izabela rce(s) Supporting Document(s) Glucose [Mass/volume] in Capillary blood by Glucometer 105 mg/dL 70- 140 [facility] ID Date Data Source [id number] 06/16/2020 12:53:49 PM [facility] Value Range Interpretation Code Description Data Izabela rce(s) Supporting Document(s) Glucose [Mass/volume] in Capillary blood by Glucometer 157 mg/dL 70- 140 H [facility] ID Date Data Source [id number] 06/16/2020 01:07:16 PM [facility] Value Range Interpretation Code Description Data Izabela rce(s) Supporting Document(s) Magnesium [Mass/volume] in Serum or Plasma 1.6 mg/dL 1.6-2.4 [facility] ID Date Data Source [id number] 06/16/2020 01:07:16 PM [facility] Value Range Interpretation Code Description Data Izabela rce(s) Supporting Document(s) Phosphate [Mass/volume] in Serum or Plasma 4.0 mg/dL 2.5-4.5 [facility] ID Date Data Source [id number] 06/16/2020 01:07:16 PM [facility] Value Range Interpretation Code Description Data Izabela rce(s) Supporting Document(s) Bicarbonate [Moles/volume] in Serum 20 mmol/L 22-29 L [facility] Chloride [Moles/volume] in Serum or Plasma 109 mmol/L 98-107 H [facility] Creatinine [Mass/volume] in Serum or Plasma 5.65 mg/dL 0.70-1.20 H [facility] Glucose [Mass/volume] in Serum or Plasma 152 mg/dL 70-140 H [facility] Potassium [Moles/volume] in Serum or Plasma 4.5 mmol/L 3.4-5.1 [facility] Sodium [Moles/volume] in Serum or Plasma 143 mmol/L 136-145 [facility] Urea nitrogen [Mass/volume] in Serum or Plasma 64 mg/dL 8-23 H [facility] Anion gap 3 in Serum or Plasma 14 mmol/L 8-15 [facility] Osmolality of Serum or Plasma by calculation 317 mosm/kg 275-300 H [facility] Creatinine/Urea nitrogen [Mass Ratio] in Serum or Plasma 11 [facility] Calcium [Mass/volume] in Serum or Plasma 8.1 mg/dL 8.8-10.2 L [facility] Glomerular filtration rate/1.73 sq M pre dicted among non-blacks [Volume Rate/Area] in Serum or Plasma by Creatinine-based formula (MDRD) >6 0 [facility] Glomerular filtration rate/1.73 sq M pre dicted among blacks [Volume Rate/Area] in Serum or Plasma by Creatinine-based formula (MDRD) >60 [facility] ID Date Data Source [id number] 06/16/2020 07:41:26 AM [facility] Name Value Range Interpretation Code Description Data Izabela rce(s) Supporting Document(s) Glucose [Mass/volume] in Capillary blood by Glucometer 121 mg/dL 70- 140 [facility] ID Date Data Source [id number] 06/16/2020 06:42:14 AM [facility] Name Value Range Interpretation Code Description Data Izabela rce(s) Supporting Document(s) Leukocytes [#/volume] in Blood by Automated count 6.0 10*3/uL 4-10 [facility] Erythrocytes [#/volume] in Blood by Automated count 3.96 10*6/uL 4.6- 6.1 L [facility] Hemoglobin [Mass/volume] in Blood 12.2 g/dL 13.5-18 L [facility] Hematocrit [Volume Fraction] of Blood by Automated count 37.0 % 4 1-53 L [facility] Erythrocyte mean corpuscular volume [Entitic volume] by Auto mated count 93.5 fL 80-96 [facility] Erythrocyte mean corpuscular hemoglobin [Entitic mass] by Automated count 30.8 pg 27-33 [facility] Erythrocyte mean corpuscular hemoglobin concentration [Mass/volume] by Automated count 33.0 g/dL 32.0-[facility] width [Ratio] by Automated count 14.2 % 11.5-14.5 [facility] Platelets [#/volume] in Blood by Automated count 217 10*3/uL 150-400 [facility] Differential cell count method - Blood [facility] Neutrophils/100 leukocytes in Blood by Automated count 59 % [facility] [facility] Lymphocytes/100 leukocytes in Blood by Automated count 21 % [facility] Monocytes/100 leukocytes in Blood by Automated count 12 % [facility] Eosinophils/100 leukocytes in Blood by Automated count 7 % [facility] Basophils/100 leukocytes in Blood by Automated count 1 % [facility] Neutrophils [#/volume] in Blood by Automated count 3.59 10*3/uL 1.8-7 .0 [facility] Lymphocytes [#/volume] in Blood by Automated count 1.25 10*3/uL 1.2-4 .0 [facility] Monocytes [#/volume] in Blood by Automated count 0.70 10*3/uL 0-0.8 [facility] Eosinophils [#/volume] in Blood by Automated count 0.42 10*3/uL 0-0.5 [facility] Basophils [#/volume] in Blood by Automated count 0.03 10*3/uL 0-0.2 [facility] Nucleated erythrocytes/100 leukocytes [Ratio] in Blood by Automated count 0 /100{WBCs} 0-0 [facility] ID Date Data Source [id number] 06/16/2020 07:53:27 AM [facility] Name Value Range Interpretation Code Description Data Izabela rce(s) Supporting Document(s) Bicarbonate [Moles/volume] in Serum 18 mmol/L 22-29 L [facility] Chloride [Moles/volume] in Serum or Plasma 108 mmol/L 98-107 H [facility] Creatinine [Mass/volume] in Serum or Plasma 5.64 mg/dL 0.70-1.20 H [facility] Glucose [Mass/volume] in Serum or Plasma 124 mg/dL 70-140 [facility] Potassium [Moles/volume] in Serum or Plasma 4.3 mmol/L 3.4-5.1 [facility] Sodium [Moles/volume] in Serum or Plasma 141 mmol/L 136-145 [facility] Urea nitrogen [Mass/volume] in Serum or Plasma 66 mg/dL 8-23 H [facility] Anion gap 3 in Serum or Plasma 14 mmol/L 8-15 [facility] Osmolality of Serum or Plasma by calculation 312 mosm/kg 275-300 H [facility] Creatinine/Urea nitrogen [Mass Ratio] in Serum or Plasma 12 [facility] Calcium [Mass/volume] in Serum or Plasma 7.8 mg/dL 8.8-10.2 L [facility] Glomerular filtration rate/1.73 sq M pre dicted among non-blacks [Volume Rate/Area] in Serum or Plasma by Creatinine-based formula (MDRD) >6 0 [facility] Glomerular filtration rate/1.73 sq M pre dicted among blacks [Volume Rate/Area] in Serum or Plasma by Creatinine-based formula (MDRD) >60 [facility] ID Date Data Source [id number] 06/16/2020 07:53:27 AM [facility] Name Value Range Interpretation Code Description Data Izabela rce(s) Supporting Document(s) Magnesium [Mass/volume] in Serum or Plasma 1.8 mg/dL 1.6-2.4 [facility] ID Date Data Source [id number] 06/16/2020 07:53:27 AM [facility] Name Value Range Interpretation Code Description Data Izabela rce(s) Supporting Document(s) Phosphate [Mass/volume] in Serum or Plasma 4.4 mg/dL 2.5-4.5 [facility] ID Date Data Source [id number] 06/16/2020 01:07:13 AM [facility] Name Value Range Interpretation Code Description Data Izabela rce(s) Supporting Document(s) Bicarbonate [Moles/volume] in Serum 21 mmol/L 22-29 L [facility] Chloride [Moles/volume] in Serum or Plasma 109 mmol/L 98-107 H [facility] Creatinine [Mass/volume] in Serum or Plasma 6.50 mg/dL 0.70-1.20 H [facility] Glucose [Mass/volume] in Serum or Plasma 122 mg/dL 70-140 [facility] Potassium [Moles/volume] in Serum or Plasma 5.0 mmol/L 3.4-5.1 [facility] Sodium [Moles/volume] in Serum or Plasma 142 mmol/L 136-145 [facility] Urea nitrogen [Mass/volume] in Serum or Plasma 74 mg/dL 8-23 H [facility] Anion gap 3 in Serum or Plasma 12 mmol/L 8-15 [facility] Osmolality of Serum or Plasma by calculation 317 mosm/kg 275-300 H [facility] Creatinine/Urea nitrogen [Mass Ratio] in Serum or Plasma 11 [facility] Calcium [Mass/volume] in Serum or Plasma 7.8 mg/dL 8.8-10.2 L [facility] Glomerular filtration rate/1.73 sq M pre dicted among non-blacks [Volume Rate/Area] in Serum or Plasma by Creatinine-based formula (MDRD) >6 0 [facility] Glomerular filtration rate/1.73 sq M pre dicted among blacks [Volume Rate/Area] in Serum or Plasma by Creatinine-based formula (MDRD) >60 [facility] ID Date Data Source [id number] 06/16/2020 01:07:13 AM [facility] Value Range Interpretation Code Description Data Izabela rce(s) Supporting Document(s) Magnesium [Mass/volume] in Serum or Plasma 1.5 mg/dL 1.6-2.4 [facility] ID Date Data Source [id number] 06/16/2020 01:07:13 AM [facility] Value Range Interpretation Code Description Data Izabela rce(s) Supporting Document(s) Phosphate [Mass/volume] in Serum or Plasma 5.2 mg/dL 2.5-4.5 H [facility] ID Date Data Source [id number] 06/15/2020 09:02:35 PM [facility] Value Range Interpretation Code Description Data Izabela rce(s) Supporting Document(s) Glucose [Mass/volume] in Capillary blood by Glucometer 119 mg/dL 70- 140 [facility] ID Date Data Source [id number] 06/15/2020 07:23:22 PM [facility] Value Range Interpretation Code Description Data Izabela rce(s) Supporting Document(s) Magnesium [Mass/volume] in Serum or Plasma 1.7 mg/dL 1.6-2.4 [facility] ID Date Data Source [id number] 06/15/2020 07:23:22 PM [facility] Value Range Interpretation Code Description Data Izabela rce(s) Supporting Document(s) Phosphate [Mass/volume] in Serum or Plasma 5.6 mg/dL 2.5-4.5 H [facility] ID Date Data Source [id number] 06/15/2020 07:23:22 PM [facility] Value Range Interpretation Code Description Data Izabela rce(s) Supporting Document(s) Bicarbonate [Moles/volume] in Serum 20 mmol/L 22-29 [facility] Chloride [Moles/volume] in Serum or Plasma 106 mmol/L 98-107 [facility] Creatinine [Mass/volume] in Serum or Plasma 6.95 mg/dL 0.70-1.20 H [facility] Glucose [Mass/volume] in Serum or Plasma 121 mg/dL 70-140 [facility] Potassium [Moles/volume] in Serum or Plasma 4.8 mmol/L 3.4-5.1 [facility] Sodium [Moles/volume] in Serum or Plasma 144 mmol/L 136-145 [facility] Urea nitrogen [Mass/volume] in Serum or Plasma 80 mg/dL 8-23 H [facility] Anion gap 3 in Serum or Plasma 18 mmol/L 8-15 H [facility] Osmolality of Serum or Plasma by calculation 323 mosm/kg 275-300 H [facility] Creatinine/Urea nitrogen [Mass Ratio] in Serum or Plasma 12 [facility] Calcium [Mass/volume] in Serum or Plasma 8.0 mg/dL 8.8-10.2 L [facility] Glomerular filtration rate/1.73 sq M pre dicted among non-blacks [Volume Rate/Area] in Serum or Plasma by Creatinine-based formula (MDRD) >6 0 [facility] Glomerular filtration rate/1.73 sq M pre dicted among blacks [Volume Rate/Area] in Serum or Plasma by Creatinine-based formula (MDRD) >60 [facility] ID Date Data Source [id number] 06/15/2020 04:48:16 PM [facility] Name Value Range Interpretation Code Description Data Izabela rce(s) Supporting Document(s) Glucose [Mass/volume] in Capillary blood by Glucometer 122 mg/dL 70- 140 [facility] ID Date Data Source [id number] 06/15/2020 03:32:28 PM [facility] Name Value Range Interpretation Code Description Data Izabela rce(s) Supporting Document(s) [facility] [id number]/IOUjjGQYlv5ApQWccQUn7DEvnYWEgS0PqUIX9aY5uQAJ6KOkBKvKyFgZwGKAo [facility] SiKfoGDaLlXFRrFogCMlJvALbgHarybQReEE7CpKU4KMKxB55vBVUlOOWgB4CnHIL1CxL+Kc5DLYWtcF EkDX8ITbqA4K7aipx9Hr8viK9ZhqXfAnnyNxxRn5KiJP3RvoCkHIIa+kGxVo+tHso1YI1/ffcpacarX8 Mxoxd2HDgxKqThCUxpFgwbUYvb24Rh8KjTCzn/61+D SImbO/QRl9fBZ9utJ4v5ty7rVthqdLV8tlHHWP+/tVeTv50slLGNdUYZUZRj58szyDLLx/Di+sq7ER0N As8Co8k2indWb2ZpLmuEx0WJHEuZ/tZVL9E5YfilvE+N6UrHd+Wa8vv+MCFCaFsh6cDmhOFgXes7ZcLw 8W313dxWxs2IuRrJbvG/1aWmUorvcTtPQBtLyo5NrK 99LF6MQyWfY09AkaqSrzwgyTp16M46eASbOG+Eo3j9XSuj8Ry054+FGwlSj5FCMmVlaQfBoCbyeDw+zF G42ZSxNmLl3SF27G/ZJnGdr7A7EeWlu9U6SXj8LfA1/Qi9jQSje5Iw6F4hRW6YTCq/BSeZLLh5uq9gCf qkBM7wvz2rES8148qcyL07de+half-way/YUuruYDCPFxYN [file] AgICAgICAgICAgICAgICAgICAgICAgICAgICAgICAgICAgICAgICAgICAgICAgICAgICAgICAgICAgIC VbIKWeVPFgXFYcZGKcWLMcUAFqJSXhRIFeOQRhTO5J ICAgICAgICAgICAgICAgICAgICAgICAgICAgICAgICAgICAgICAgICAgICAgICAgICAgICAgICAgICAg HJJoOKImTKOoSGJtOEJeZGZtKIFrTRNfDQCaLGBlAWMuCVLcVRMcEX2AZVPoXMNxFKPoFYCxYEZjESYf ICAgICAgICAgICAgICAgICAgICAgICAgICAgICAgIC LmWPFsXECaBSExXRRbXPAdUVVbPGWxFBFkMZVdJFSmKSZiKXQjBTWpSZNzGPJjTHQpXX6JWHTdJRIoXQ AgICAgICAgICAgICAgICAgICAgICAgICAgICAgICAgICAgICAgICAgICAgICAgICAgICAgICAgICAgIC AgICAgICAgICAgICAgICAgICAgICAgICAgICAgICAg NU7FSFTeJGMeYPNrXHYoCIThXNLkTTAnLYSoIBOkCANsXNPpUCTsIRZxUUGzGAOgNZWoXEPlHEAhDPPc FNQfSGHoPDSeVTVnRVZjQRDuYKKrEALkZTIcMZAtUSOhKPVtQJAoEXZjPD5SWECdXQWgZKLhGDMmVIMt ICAgICAgICAgICAgICAgICAgICAgICAgICAgICAgIC PqLNZrMWJmSUNoROFcFCQxENDtQNGzHLDgOYGpJGHyJFHtBCGyZVNqCAPhNNXoJHLnCEBhEA7YJTLfRG AgICAgICAgICAgICAgICAgICAgICAgICAgICAgICAgICAgICAgICAgICAgICAgICAgICAgICAgICAgIC AgICAgICAgICAgICAgICAgICAgICAgICAgICAgICAg MYGeDE1AUEGtVLUxGOUoGCPqSZQjYTGwSTDaHFYaGGNrOHQgVNLiWECwRUPsPIBgNXBcDWQmFSYvJLRc TFMmPNYjZERfRTKoXFDaAPSoLPPjOVJmBUKyAKKxMSRdEEIsGHIvPXVvKYKfDQ9AUBRkJOLqDJOfFJZo ICAgICAgICAgICAgICAgICAgICAgICAgICAgICAgIC BoLWVsUPPhOTEnJWQyUFLhDRUrGSAwRCJsWAYrSUAsHDVzWFTxRGKqROPyTMHbXKFmNKXaMWLqVZ5UGD AgICAgICAgICAgICAgICAgICAgICAgICAgICAgICAgICAgICAgICAgICAgICAgICAgICAgICAgICAgIC AgICAgICAgICAgICAgICAgICAgICAgICAgICAgICAg EXSgCMZfZN8MPT76oODgr0I5ZILyNA2naab/Oi3PMRafkcHeiCPnHO5XAmOnBG7yzq2LRqFvHM5cdn9G HIwNDhOpP8L4tBWsXPFeBAMOVtXvY57hIJxkKu80CNfdGZXoMlHeJKd0Ul3OOoJlE7mfERYaNsU0FVOv LcJ9OUYpTnJ1AGJgRrKcRDQcOSSfDNOqEYFHOYV7EW PmRuSvBRsuSO2Ny8LfpGT1GEg+Yz9BTP3zm1JsFUquMMPtMP2qma5ZAXlDCsDuQ1XmjdP4OTL3OUUdBg 7ADMUyYMBltKMtBpMlKDALWlPzC8LojT33HRQWEd7+XEiqzlCwGeiFHnS6JFFsd0TxNXu4YX6XHEDpXM x5bGPeS74ce3IecBYdZxlzS3xpcdIcBX2mIBXxXXOZ KvSAAFF1IZQhBK7yIELlLKKrWbBkHMZTHZ1ROTTxEKEciKAwQJCdLWJDCB7KTCthJRT6YNPmglSlgQId JTvdIT6AWBGrfrUpAuVrHYHFRKq+Av1BGS7jm3BnBPpgLyFtYK4fyh0QZGyUSlAwV2O1hLLfF1S2OSqi Vh4TJHZvEJBaHjTeHSGVRDixHW9TGP6aioN8IS0DgT TrEZPxDHPpzSGsKWz1K09klKUuAAlxXA4FVJT+Jocelyn+Hk0ROOObLIVjZUBnTgSyBAUHUlSnN5AcT5IZu3 SzL8VwZS16iTfltqVeIVrjKF9ECE3gMFCiAUMNPS8HzSYpuF0abmWxMHTqKTHFOwWqU25nwJWuTUMeBJ T4PDBiOb8HQLUpX3PjznReeQdengRaAUUbBBHITU7T HMojpeFguWQqmZxgDK58zHdzVS5SGx5KVlVoTD0ytk1XzQVaJy6CIYQjPJ8YVZCkECTeQKJsJII2OBLv EnTjAWliJXPhBHXbFLW4AUSjOMDbIN4OMpBaZKVbPpC2YMMpVNRoYUTvzh8HMNEzIKSdAOJjNmEhRBXn QGXhWOseTTCgRCCwUBT1PQKzNQQwKI6SXtJrGUVzUG T3SCKiFWDdHBRtcx8IJCWpLLVyYfbjRzKeBPZmUZEyLFgeHOOtLRG2QKFzWSVmJDKvLP6AIsPqPYWpAN ijTKnwWAUoNEArgz3YLEIlIMOuSJE8KnEtVMYcCMOdNFmsGCFvCLTqOGVzKHYiZWCoNR8IDcFtNJMbYF KpWRAxIMKoZBPeaj9NAYVpFUFpHtHjPILtRYIdFLDv JRabHHTfCDK8STotSYDzWSCnFP4OIaFhNIHeTYv9LyoeYZBrEEGkbk0NEEPvRNIeEDoeGhPsDBSlKEMm NGwhRFFoWPX1CLYjRFDoFGHkKQ7YEnMzZYDbHhUvYBBrVNOoRFRpjh3TJSKoKFLtMQI2ICZpZRMmQDAo IKzyBGWtRPZbDJLwWPWmYTGkKD8ZQnJcDHSkAgL3Jp LwTCTmGNCyxm6VBJWaZXXjMOPlPEKmCEDrYKKbXMdvYIAbWSLcUZQvNDJiWQQnIN7AJpBtEXToOuH3Vg GiJNOvRUGcmz2ULLDsHYSyBbo1XMZqVWVwKKEsRMdsTIMjHBDpNLEiIRWjTYKvBE9UUyWzSSMrHiQ1Xt miHZUyEZCinr4OCBApKDWyLDg9DTBhHUYoKHLoTAuk KYMfUXA1CSA5HCHhQSSsBT4SBvVvRPVmJtQeZVOeSZGmCINjfz0IBEFeYGWvWAF8EURaUKKfJUTpGIlg EVVfFYY4BediESMfUSDlRH0PBxZxJBXdQtT6PLBaVDUfMHYimg9HOTYrGBTbKne6MPHyQZEbZBAxSDut CFChDGI1RTtqMWBwZRMmNO4PLbMxVZTwHgd9ZtRfBO SnBOQfke2IYOYwPVJrPYlzHILlJIHbNWYkMAaoIPFzKGI9GDu9CGJhGYXyNJ9FOcDfOVthFPAQBcj4EC lzR7i0FQWdGX4HA0Wuq6WjCayqAATBZIbuTD4ktoAzSXMnGz8ZE8vHTesqIyBcDNYdWTScCMQaLwPzSR IhMjXfCpv7PUK4TWXcMM5jMFHlPoK5SxA9TsYqG4Mr OmRdOiBbLkQyHwE0UOU3DBCcShIeZS0XTr5BZgP6DIW0yVZaEb0URlruHyCXBgGfZQ8UKUg= ID Date Data Source [id number] 06/15/2020 02:24:16 PM [facility] Name Value Range Interpretation Code Description Data Izabela rce(s) Supporting Document(s) Glucose [Mass/volume] in Capillary blood by Glucometer 159 mg/dL 70- 140 H [facility] ID Date Data Source [id number] 06/15/2020 11:49:35 AM [facility] Value Range Interpretation Code Description Data Izabela rce(s) Supporting Document(s) Glucose [Mass/volume] in Capillary blood by Glucometer 159 mg/dL 70- 140 H [facility] ID Date Data Source [id number] 06/15/2020 12:12:31 PM [facility] Value Range Interpretation Code Description Data Izabela rce(s) Supporting Document(s) Magnesium [Mass/volume] in Serum or Plasma 1.6 mg/dL 1.6-2.4 [facility] ID Date Data Source [id number] 06/15/2020 12:12:31 PM [facility] Value Range Interpretation Code Description Data Izabela rce(s) Supporting Document(s) Bicarbonate [Moles/volume] in Serum 19 mmol/L 22-29 L [facility] Chloride [Moles/volume] in Serum or Plasma 107 mmol/L 98-107 [facility] Creatinine [Mass/volume] in Serum or Plasma 8.23 mg/dL 0.70-1.20 H [facility] Glucose [Mass/volume] in Serum or Plasma 170 mg/dL 70-140 H [facility] Potassium [Moles/volume] in Serum or Plasma 5.1 mmol/L 3.4-5.1 [facility] Sodium [Moles/volume] in Serum or Plasma 142 mmol/L 136-145 [facility] Urea nitrogen [Mass/volume] in Serum or Plasma 84 mg/dL 8-23 H [facility] Anion gap 3 in Serum or Plasma 16 mmol/L 8-15 H [facility] Osmolality of Serum or Plasma by calculation 323 mosm/kg 275-300 H [facility] Creatinine/Urea nitrogen [Mass Ratio] in Serum or Plasma 10 [facility] Calcium [Mass/volume] in Serum or Plasma 8.2 mg/dL 8.8-10.2 L [facility] Glomerular filtration rate/1.73 sq M pre dicted among non-blacks [Volume Rate/Area] in Serum or Plasma by Creatinine-based formula (MDRD) >6 0 [facility] Glomerular filtration rate/1.73 sq M pre dicted among blacks [Volume Rate/Area] in Serum or Plasma by Creatinine-based formula (MDRD) >60 [facility] ID Date Data Source [id number] 06/15/2020 12:12:31 PM [facility] Name Value Range Interpretation Code Description Data Izabela rce(s) Supporting Document(s) Phosphate [Mass/volume] in Serum or Plasma 6.1 mg/dL 2.5-4.5 H [facility] ID Date Data Source [id number] 06/15/2020 08:08:26 AM [facility] Value Range Interpretation Code Description Data Izabela rce(s) Supporting Document(s) Glucose [Mass/volume] in Capillary blood by Glucometer 99 mg/dL 70- 140 [facility] ID Date Data Source [id number] 06/15/2020 04:17:46 AM [facility] Value Range Interpretation Code Description Data Izabela rce(s) Supporting Document(s) Glucose [Mass/volume] in Capillary blood by Glucometer 113 mg/dL 70- 140 [facility] ID Date Data Source [id number] 06/18/2020 08:05:33 AM [facility] Cmnt XXX-Imp : NoneMicroorganism XXX Cult : No growth 3 days Name Value Range Interpretation Code Description Data Izabela rce(s) Supporting Document(s) ID Date Data Source [id number] 06/18/2020 08:05:24 AM [facility] Cmnt XXX-Imp : NoneMicroorganism XXX Cult : No growth 3 days Name Value Range Interpretation Code Description Data Izabela rce(s) Supporting Document(s) ID Date Data Source [id number] 06/15/2020 04:29:19 AM [facility] Value Range Interpretation Code Description Data Izabela rce(s) Supporting Document(s) Color of Urine [facility] Clarity of Urine [facility] Specific gravity of Urine by Refractometry automated 1.010 1.003 -1.030 [facility] pH of Urine by Automated test strip 8.0 5.0-8.0 [facility] Protein [Mass/volume] in Urine by Automated test strip Neg [facility] Glucose [Mass/volume] in Urine by Automated test strip 150 mg/dL Neg [facility] Ketones [Mass/volume] in Urine by Automated test strip 5 mg/dL Neg [facility] Bilirubin.total [Presence] in Urine by Automated test strip Negative [facility] Hemoglobin [Presence] in Urine by Automated test strip Neg [facility] Leukocyte esterase [Presence] in Urine by Automated test strip Negative [facility] Nitrite [Presence] in Urine by Automated test strip Negati ve [facility] Leukocytes [#/area] in Urine sediment by Automated count 3 /HPF 0 -5 [facility] Erythrocytes [#/area] in Urine sediment by Automated count 8481 /HPF 0-3 H [facility] ID Date Data Source [id number] 06/15/2020 04:21:01 AM [facility] Name Value Range Interpretation Code Description Data Izabela rce(s) Supporting Document(s) Color of Urine [facility] Clarity of Urine [facility] Specific gravity of Urine by Refractometry automated 1.009 1.003 -1.030 [facility] pH of Urine by Automated test strip 7.0 5.0-8.0 [facility] Protein [Mass/volume] in Urine by Automated test strip 30 mg/dL Neg [facility] Glucose [Mass/volume] in Urine by Automated test strip 50 mg/dL Neg [facility] Ketones [Mass/volume] in Urine by Automated test strip Neg [facility] Bilirubin.total [Presence] in Urine by Automated test strip Negative [facility] Hemoglobin [Presence] in Urine by Automated test strip Neg [facility] Leukocyte esterase [Presence] in Urine by Automated test strip Negative [facility] Nitrite [Presence] in Urine by Automated test strip Negati ve [facility] Leukocytes [#/area] in Urine sediment by Automated count 2 /HPF 0 -5 [facility] Erythrocytes [#/area] in Urine sediment by Automated count 676 /HPF 0-3 H [facility] ID Date Data Source [id number] 06/15/2020 03:59:10 AM [facility] Name Value Range Interpretation Code Description Data Izabela rce(s) Supporting Document(s) Leukocytes [#/volume] in Blood by Automated count 6.0 10*3/uL 4-10 [facility] Erythrocytes [#/volume] in Blood by Automated count 3.65 10*6/uL 4.6- 6.1 L [facility] Hemoglobin [Mass/volume] in Blood 11.3 g/dL 13.5-18 L [facility] Hematocrit [Volume Fraction] of Blood by Automated count 33.7 % 4 1-53 L [facility] Erythrocyte mean corpuscular volume [Entitic volume] by Auto mated count 92.1 fL 80-96 [facility] Erythrocyte mean corpuscular hemoglobin [Entitic mass] by Automated count 30.9 pg 27-33 [facility] Erythrocyte mean corpuscular hemoglobin concentration [Mass/volume] by Automated count 33.5 g[facility] distribution width [Ratio] by Automated count 14.4 % 11.5-14.5 [facility] Platelets [#/volume] in Blood by Automated count 235 10*3/uL 150-400 [facility] Differential cell count method - Blood [facility] Neutrophils/100 leukocytes in Blood by Automated count 70 % [facility] Lymphocytes/100 leukocytes in Blood by Automated count 14 % [facility] Monocytes/100 leukocytes in Blood by Automated count 12 % [facility] Eosinophils/100 leukocytes in Blood by Automated count 3 % [facility] Basophils/100 leukocytes in Blood by Automated count 1 % [facility] Neutrophils [#/volume] in Blood by Automated count 4.28 10*3/uL 1.8-7 .0 [facility] Lymphocytes [#/volume] in Blood by Automated count 0.86 10*3/uL 1.2-4 .0 L [facility] Monocytes [#/volume] in Blood by Automated count 0.70 10*3/uL 0-0.8 [facility] Eosinophils [#/volume] in Blood by Automated count 0.17 10*3/uL 0-0.5 [facility] Basophils [#/volume] in Blood by Automated count 0.04 10*3/uL 0-0.2 [facility] Nucleated erythrocytes/100 leukocytes [Ratio] in Blood by Automated count 0 /100{WBCs} 0-0 [facility] ID Date Data Source [id number] 06/15/2020 04:10:11 AM [facility] Name Value Range Interpretation Code Description Data Izabela rce(s) Supporting Document(s) Fibrin D-dimer FEU [Mass/volume] in Platelet poor plas ma by Immunoassay 2.78 ug/mL{FEU} <0.50 H [facility] ID Date Data Source [id number] 06/15/2020 04:17:19 AM [facility] Name Value Range Interpretation Code Description Data Izabela rce(s) Supporting Document(s) Bicarbonate [Moles/volume] in Serum 18 mmol/L 22-29 L [facility] Chloride [Moles/volume] in Serum or Plasma 108 mmol/L 98-107 H [facility] Creatinine [Mass/volume] in Serum or Plasma 8.99 mg/dL 0.70-1.20 H [facility] Glucose [Mass/volume] in Serum or Plasma 121 mg/dL 70-140 [facility] Potassium [Moles/volume] in Serum or Plasma 5.2 mmol/L 3.4-5.1 H [facility] Sodium [Moles/volume] in Serum or Plasma 143 mmol/L 136-145 [facility] Urea nitrogen [Mass/volume] in Serum or Plasma 90 mg/dL 8-23 H [facility] Anion gap 3 in Serum or Plasma 17 mmol/L 8-15 H [facility] Osmolality of Serum or Plasma by calculation 325 mosm/kg 275-300 H [facility] Creatinine/Urea nitrogen [Mass Ratio] in Serum or Plasma 10 [facility] Calcium [Mass/volume] in Serum or Plasma 7.8 mg/dL 8.8-10.2 [facility] Glomerular filtration rate/1.73 sq M pre dicted among non-blacks [Volume Rate/Area] in Serum or Plasma by Creatinine-based formula (MDRD) >6 0 [facility] Glomerular filtration rate/1.73 sq M pre dicted among blacks [Volume Rate/Area] in Serum or Plasma by Creatinine-based formula (MDRD) >60 [facility] ID Date Data Source [id number] 06/15/2020 04:17:19 AM [facility] Name Value Range Interpretation Code Description Data Izabela rce(s) Supporting Document(s) Magnesium [Mass/volume] in Serum or Plasma 1.6 mg/dL 1.6-2.4 [facility] ID Date Data Source [id number] 06/15/2020 04:17:19 AM [facility] Value Range Interpretation Code Description Data Izabela rce(s) Supporting Document(s) Troponin T.cardiac [Mass/volume] in Serum or Plasma 0.10 ng/mL <0.01 H [facility] ID Date Data Source [id number] 06/15/2020 04:17:19 AM [facility] Value Range Interpretation Code Description Data Izabela rce(s) Supporting Document(s) Phosphate [Mass/volume] in Serum or Plasma 6.8 mg/dL 2.5-4.5 H [facility] ID Date Data Source [id number] 06/15/2020 01:37:10 AM [facility] Value Range Interpretation Code Description Data Izabela rce(s) Supporting Document(s) Glucose [Mass/volume] in Capillary blood by Glucometer 124 mg/dL 70- 140 [facility] ID Date Data Source [id number] 06/15/2020 01:06:56 AM [facility] Value Range Interpretation Code Description Data Izabela rce(s) Supporting Document(s) Glucose [Mass/volume] in Capillary blood by Glucometer 125 mg/dL 70- 140 [facility] ID Date Data Source [id number] 06/15/2020 12:32:12 AM [facility] Value Range Interpretation Code Description Data Izabela rce(s) Supporting Document(s) Glucose [Mass/volume] in Capillary blood by Glucometer 138 mg/dL 70- 140 [facility] ID Date Data Source [id number] 06/15/2020 12:08:29 AM [facility] Value Range Interpretation Code Description Data Izabela rce(s) Supporting Document(s) Glucose [Mass/volume] in Capillary blood by Glucometer 154 mg/dL 70- 140 H [facility] ID Date Data Source [id number] 06/15/2020 12:51:47 AM [facility] Value Range Interpretation Code Description Data Izabela rce(s) Supporting Document(s) Bicarbonate [Moles/volume] in Serum 18 mmol/L 22-29 L [facility] Chloride [Moles/volume] in Serum or Plasma 104 mmol/L 98-107 [facility] Creatinine [Mass/volume] in Serum or Plasma 9.41 mg/dL 0.70-1.20 H [facility] Glucose [Mass/volume] in Serum or Plasma 196 mg/dL 70-140 [facility] Potassium [Moles/volume] in Serum or Plasma 5.6 mmol/L 3.4-5.1 [facility] Sodium [Moles/volume] in Serum or Plasma 137 mmol/L 136-145 [facility] Urea nitrogen [Mass/volume] in Serum or Plasma 94 mg/dL 8-23 H [facility] Anion gap 3 in Serum or Plasma 15 mmol/L 8-15 [facility] Osmolality of Serum or Plasma by calculation 318 mosm/kg 275-300 H [facility] Creatinine/Urea nitrogen [Mass Ratio] in Serum or Plasma 10 [facility] Calcium [Mass/volume] in Serum or Plasma 7.7 mg/dL 8.8-10.2 L [facility] Glomerular filtration rate/1.73 sq M pre dicted among non-blacks [Volume Rate/Area] in Serum or Plasma by Creatinine-based formula (MDRD) >6 0 [facility] Glomerular filtration rate/1.73 sq M pre dicted among blacks [Volume Rate/Area] in Serum or Plasma by Creatinine-based formula (MDRD) >60 [facility] ID Date Data Source [id number] 06/15/2020 12:51:47 AM [facility] Name Value Range Interpretation Code Description Data Izabela rce(s) Supporting Document(s) Troponin T.cardiac [Mass/volume] in Serum or Plasma 0.08 ng/mL <0.01 H [facility] ID Date Data Source [id number] 06/14/2020 11:38:59 PM [facility] Value Range Interpretation Code Description Data Izabela rce(s) Supporting Document(s) Glucose [Mass/volume] in Capillary blood by Glucometer 126 mg/dL 70- 140 [facility] ID Date Data Source [id number] 06/14/2020 10:24:44 PM [facility] Value Range Interpretation Code Description Data Izabela rce(s) Supporting Document(s) Glucose [Mass/volume] in Capillary blood by Glucometer 73 mg/dL 70- 140 [facility] ID Date Data Source [id number] 06/14/2020 09:26:30 PM [facility] IR NEPHROSTOMY INSERTION CHANGEFINAL RES ULTInterpreted by:RYAN YanezAM: Bilateral nephrostomy tube placement CLINICAL INDICATIONS: Bilateral hydroureteronephrosis due to bladder cancerContrast Type and Dose: Omnipaque 300 15 mLFluoroscopy time 3.1 minute, Fluoroscopy Dose 21 mGy. Consent: Following discussion of the risks, benefits and alternatives of the procedure, written informed consent was obtained. 25 mcg of fentanyl for pain controlCOMPARISON: [facility] obtained on 06/13[facility]2020TIME OUT: Prior to the procedure a time out was performed in the presence of the patient and all personnel involved in this case. The patient identity, procedure type, procedure side/site, and allergies were verified.Zosyn Intravenous antibiotics were administered before and during the procedure..............................................................TECHNIQUE : Position: The patient was transferred to the IR laboratory and was positioned prone on the procedural table. The left and right flank area was prepped and draped using maximum sterile barrier technique. Left Procedure: After infiltration of local anesthesia and using direct ultrasound guidance, a 21G needle was advanced into a posterolateral calyx. A small amount of contrast was injected and an antegrade nephrostogram was performed. A wire was advanced into the renal pelvis. Subsequently after serial dilations, a 8.5 Argentine resolve nephrostomy drainage catheter was inserted into the renal pelvis. The catheter was then sutured to the skin with a 2-0 Prolene suture and a gravity drainage bag was attached to the tube. A sterile, occlusive dressing was placed on the skin surrounding the drain.Right Procedure: After infiltration of local anesthesia and using direct ultrasound guidance, a 21G needle was advanced into a posterolateral calyx. A small amount of contrast was injected and an antegrade nephrostogram was performed. A wire was advanced into the renal pelvis. Subsequently after serial dilations, a 8.5 Argentine resolve nephrostomy drainage catheter was inserted into the renal pelvis. The catheter was then sutured to the skin with a 2-0 Prolene suture and a gravity drainage bag was attached to the tube. A sterile, occlusive dressing was placed on the skin surrounding the drain.FINDINGS: Bilateral marked hydronephrosis.IMPRESSION: Technically successful bilateral 8.5 Argentine nephrostomy tube placement.Plan: Exchange in approximately 8-12 weeks is recommended. This document has been electronically signed by Odell Sawant DO on 06/14/2020 9:24 PM Name Value Range Interpretation Code Description Data Izabela rce(s) Supporting Document(s) ID Date Data Source [id number] 06/14/2020 07:59:00 PM [facility] Name Value Range Interpretation Code Description Data Izabela [facility](s) Supporting Document(s) History and Physical [facility] [id number]Q4HMpLInUzMiFkHqNx [facility] [file] [employer]/[id number]YZ4epSLT+aY9Hk435LGQJcVGN/EC2S1cvNbRXrdn0j/ X7icZkur/U7mlk53KF4qs57eWqpB72XC7y+D/lMvTnsNwp5s+quDdXDH4f3/N0Vytqd62IgSgnkmz2j+ RRJ0Si4wy2Okq+gETAw/E/B6i1ln9SBJoczc8wjxm5 ymNkuXm/p7cvXdoSJSzBz02bGhQk0VfcCMiS/QxBus74oywPn1Ba55arugsM475ylzgJdM24GKp1OBcb 7jKeITCm4DbPVbU8y4A+9i17Br8fiN0MS34qje/9ymnlWLYVs2o8Zsua98EkpqoO8ldqS+h/IWjRaQvk d7ANgUsPkBje0D29Ek81LYYkkpcjx6Wr7W2T+Ra164 CJnNM2QzCD/JXGbk44dbvPFFG7qU84Z7BQ9wi2IiBl2kv6OC8AJJ5GdzL/1DTvsOSL5CT/QjcaZTHKi7 0712geDFee5ihVuMM6nyuR1GqECslSkkKzQinJBOh6xEQ2Ce2cf8sMJXoHbBewXy4iCM0Q08ZvdxiP21 NpB647OktKYUaF2qE6x/0t+vGG3T2umVu+vvQa+/Rx 6zLHsCFF4McM25o/hJlfvIYlmjncpG4KPIWqE3wiU6PtcMZQYgDp3Xm11wkHY28lH0W0Fuajs2M8Xnq7 N/sdSOL9u3I+A1rgU1UzfHMpTyX4tBNmfWAq4fQX7iTTZ35SXm6a+zsz7svfb9NI2UEqkdEYXJ/8yYCd Martino/ki8j6MNthtbFTgEvdVLjQ1jvl7s4obccGyfp/57 [file] [id number] ID Date Data Source [id number] 06/14/2020 05:46:22 PM [facility] Name Value Range Interpretation Code Description Data Izabela rce(s) Supporting Document(s) Glucose [Mass/volume] in Capillary blood by Glucometer 78 mg/dL 70- 140 [facility] ID Date Data Source [id number] 06/14/2020 05:59:23 PM [facility] Name Value Range Interpretation Code Description Data Izabela rce(s) Supporting Document(s) Leukocytes [#/volume] in Blood by Automated count 5.3 10*3/uL 4-10 [facility] Erythrocytes [#/volume] in Blood by Automated count 3.62 10*6/uL 4.6- 6.1 L [facility] Hemoglobin [Mass/volume] in Blood 11.1 g/dL 13.5-18 L [facility] Hematocrit [Volume Fraction] of Blood by Automated count 33.5 % 4 1-53 L [facility] Erythrocyte mean corpuscular volume [Entitic volume] by Auto mated count 92.6 fL 80-96 [facility] Erythrocyte mean corpuscular hemoglobin [Entitic mass] by Automated count 30.7 pg 27-33 [facility] Erythrocyte mean corpuscular hemoglobin concentration [Mass/volume] by Automated count 33.1 g/dL [facility]0-[facility] distribution width [Ratio] by Automated count 13.6 % 11.5-14.5 [facility] Platelets [#/volume] in Blood by Automated count 209 10*3/uL 150-400 [facility] Differential cell count method - Blood [facility] Neutrophils/100 leukocytes in Blood by Automated count 72 % [facility] Lymphocytes/100 leukocytes in Blood by Automated count 16 % [facility] Monocytes/100 leukocytes in Blood by Automated count 8 % [facility] Eosinophils/100 leukocytes in Blood by Automated count 3 % [facility] Basophils/100 leukocytes in Blood by Automated count 1 % [facility] Neutrophils [#/volume] in Blood by Automated count 3.88 10*3/uL 1.8-7 .0 [facility] Lymphocytes [#/volume] in Blood by Automated count 0.84 10*3/uL 1.2-4 .0 L [facility] Monocytes [#/volume] in Blood by Automated count 0.44 10*3/uL 0-0.8 [facility] Eosinophils [#/volume] in Blood by Automated count 0.13 10*3/uL 0-0.5 [facility] Basophils [#/volume] in Blood by Automated count 0.05 10*3/uL 0-0.2 [facility] Nucleated erythrocytes/100 leukocytes [Ratio] in Blood by Automated count 0 /100{WBCs} 0-0 [facility] ID Date Data Source [id number] 06/14/2020 06:13:18 PM [facility] Name Value Range Interpretation Code Description Data Izabela rce(s) Supporting Document(s) Prothrombin time (PT) 15.4 s 12.5-14.9 H [facility] INR in Platelet poor plasma by Coagulation assay 1.20 [facility] Routine intensity oral anticoagulation I NR is typically 2.0-3.0. Target INR must be clinically individualized. ID Date Data Source [id number] 06/14/2020 06:13:18 PM [facility] Value Range Interpretation Code Description Data Izabela rce(s) Supporting Document(s) aPTT in Platelet poor plasma by Coagulation assay 27.2 s 24.0-33. 0 [facility] ID Date Data Source [id number] 06/14/2020 06:27:46 PM [facility] Name Value Range Interpretation Code Description Data Izabela rce(s) Supporting Document(s) Albumin [Mass/volume] in Serum or Plasma by Bromocresol green (BCG) dye binding method 3.1 g/dL 3.5-5.[address] [facility] Bilirubin.total [Mass/volume] in Serum or Plasma 0.3 mg/dL <1.2 [facility] Calcium [Mass/volume] in Serum or Plasma 7.9 mg/dL 8.8-10.2 L [facility] Chloride [Moles/volume] in Serum or Plasma 106 mmol/L 98-107 [facility] Creatinine [Mass/volume] in Serum or Plasma 9.79 mg/dL 0.70-1.20 H [facility] Glucose [Mass/volume] in Serum or Plasma 79 mg/dL 70-140 [facility] Alkaline phosphatase [Enzymatic activity/volume] in Serum or Plasma 93 U/L 40-129 [facility] Potassium [Moles/volume] in Serum or Plasma 5.8 mmol/L 3.4-5.1 H [facility] Protein [Mass/volume] in Serum or Plasma 5.5 g/dL 6.4-8.3 L [facility] Sodium [Moles/volume] in Serum or Plasma 142 mmol/L 136-145 [facility] Aspartate aminotransferase [Enzymatic activity/volume] in Serum or Plasma 18 U/L <40 [facility] Urea nitrogen [Mass/volume] in Serum or Plasma 96 mg/dL 8-23 H [facility] Osmolality of Serum or Plasma by calculation 323 mosm/kg 275-300 H [facility] Creatinine/Urea nitrogen [Mass Ratio] in Serum or Plasma 10 [facility] Bicarbonate [Moles/volume] in Serum 20 mmol/L 22-29 L [facility] Alanine aminotransferase [Enzymatic activity/volume] in Seru m or Plasma 29 U/L <41 [facility] Anion gap 3 in Serum or Plasma 16 mmol/L 8-15 H [facility] Glomerular filtration rate/1.73 sq M pre dicted among non-blacks [Volume Rate/Area] in Serum or Plasma by Creatinine-based formula (MDRD) >6 0 [facility] Glomerular filtration rate/1.73 sq M pre dicted among blacks [Volume Rate/Area] in Serum or Plasma by Creatinine-based formula (MDRD) >60 [facility] ID Date Data Source [id number] 06/14/2020 06:27:46 PM [facility] Name Value Range Interpretation Code Description Data Izabela rce(s) Supporting Document(s) Troponin T.cardiac [Mass/volume] in Serum or Plasma 0.09 ng/mL <0.01 H [facility] ID Date Data Source [id number] 06/14/2020 06:27:46 PM [facility] Name Value Range Interpretation Code Description Data Izabela rce(s) Supporting Document(s) Phosphate [Mass/volume] in Serum or Plasma 7.9 mg/dL 2.5-4.5 H [facility] ID Date Data Source [id number] 06/14/2020 06:27:46 PM [facility] Name Value Range Interpretation Code Description Data Izabela rce(s) Supporting Document(s) Magnesium [Mass/volume] in Serum or Plasma 1.6 mg/dL 1.6-2.4 [facility] ID Date Data Source [id number] 06/14/2020 04:32:00 PM EST [facility] Name Value Range Interpretation Code Description Data Izabela rce(s) Supporting Document(s) SARS-CoV-2 RNA [facility] This lab was ordered by [facility] and reported by [facility]. 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 [facility] Patient has symptoms related to [facility] When did you start to experience these symptoms [Date and time] [Phen X] [facility] Patient was hospitalized because of this condition [facility] patient was admitted to ICU for [facility] Patient resides in a congregate care setting [facility] status [facility] ID Date Data Source [id number] 06/14/2020 08:24:02 PM [facility] Name Value Range Interpretation Code Description Data Izabela rce(s) Supporting Document(s) Glucose [Mass/volume] in Capillary blood by Glucometer 77 mg/dL 70- 140 [facility] ID Date Data Source [id number] 06/13/2020 10:55:00 PM EST [facility] Name Value Range Interpretation Code Description Data Izabela rce(s) Supporting Document(s) Coronavirus 2019 Nasopharygeal Laboratory test result [facility] ([facility] Laboratory test finding (navigational concept) Laboratory test r esult Normal (applies to non-numeric results) [facility] A false negative result may occur if a s pecimen is improperly collected, transported or handled. False negative results may also occur if inadequate numbers of organisms are present in the specimen. As with any molecular test, mutations within the target regions of [employer] SARS-CoV-2 could affect primer and/or probe binding resulting in failure to detect the presence of virus. This test cannot rule out diseases caused by other bacterial or viral pathogens. DISCLAIMER: Testing was performed using the [employer] SARS-CoV-2 test. This test was developed and its performance characteristics determined by [employer]. This test has not been FDA cleared [...] section 564(b)(1) of the Act, 21 U.S.C. 360bbb-3(b)(1), unless the authorization is terminated or revoked sooner. ID Date Data Source [id number] 06/13/2020 10:55:00 PM EST [facility] Name Value Range Interpretation Code Description Data Izabela rce(s) Supporting Document(s) SARS coronavirus 2 RNA [Presence] in Res piratory specimen by JOHANNE with probe detection [facility] This lab was ordered by [facility] a nd reported by [facility]. ID Date Data Source [id number] 06/13/2020 09:59:00 PM EST [facility] Name Value Range Interpretation Code Description Data Izabela rce(s) Supporting Document(s) Troponin I.cardiac [Mass/volume] in Serum or Plasma Laboratory test result [facility] ([facility] Laboratory test finding (navigational concept) 0.14 ng/mL 0 .00-0.08 Above high normal [facility] ([facility] ) ID Date Data Source [id number] 06/13/2020 09:54:00 PM EST [facility] Name Value Range Interpretation Code Description Data Izabela rce(s) Supporting Document(s) Natriuretic peptide.B prohormone N-Terminal [Mass/volu me] in Serum or Plasma 53971 pg/mL Above high normal [facility] ([facility] Lipoprotein lipase [Enzymatic activity/volume] in Serum or P lasma 891 U/L 73-393 Above high normal [facility] Troponin I.cardiac [Mass/volume] in Serum or Plasma 0.08 ng/mL Normal (applies to non-numeric results) [facility] <content>Troponin I Reference Interval f or Siemens [place] LOCI:</content>
<content></content>
<content>99th Percentile= 0.00-0.045 ng/ml</content>
<content></content>
<content>Risk Stratification:</content>
<content><= 0.10 ng/ml Decreased Risk for Adverse Clinical</content>
<content>Events.</content>
<content>0.10-1.50 ng/ml Increased Risk for Adverse Clinical</content>
<content>Events. Evaluation of additional</content>
<content>criterion and/or repeat testing in 2-6</content>
<content>hours is suggested to rule out myocardial</content>
<content>damage.</content>
<content>>= 1.50 ng/ml Indicative of Myocardial Injury.</content>
<content></content> Fibrin D-dimer FEU [Mass/volume] in Platelet poor plasma 3589.24 ng/mL Above high normal [facility] ([facility] ) ID Date Data Source [id number] 06/13/2020 09:54:00 PM EST [facility] ([facility] Name Value Range Interpretation Code Description Data Izabela rce(s) Supporting Document(s) Glucose, Fasting 76 mg/dL 70-100 Normal (applies to non-numeric results) [facility] Blood Urea Nitrogen 101 mg/dL 7-18 Above high normal [facility] ([facility] Glomerular Filtration Rate 6.2 Below low normal [facility] <content>Units are mL/min/1.73 m2</content>
<content></content>
<content>Chronic Kidney Disease Staging per NKF:</content>
<content></content>
<content>Stage I & II GFR >=60 Normal to Mildly Decreased</content>
<content>Stage III GFR 30- 59 Moderately Decreased</content>
<content>Stage IV GFR 15-29 Severely Decreased</content>
<content>Stage V GFR <15 Very Little GFR Left</content>
<content>ESRD GFR <15 on [employer]</content>
<content></content> Creatinine For GFR 8.78 mg/dL 0.70-1.30 Above upper panic limits [facility] Sodium Level 139 meq/L 136-145 Normal (applies to non-numeric res ults) [facility] ([facility] Chloride Level 109 meq/L 98-107 Above high normal [facility] Potassium Serum 6.6 meq/L 3.5-5.1 Above upper panic limits [facility] ([facility] This specimen has an elevated potassium level but there is NO visible hemolysis noted. Carbon Dioxide Level 15 meq/L 21-32 Below low normal [facility] ([facility] Anion Gap 15 meq/L 8-16 Normal (applies to non-numeric resul ts) [facility] ([facility] Calcium Level 7.7 mg/dL 8.8-10.2 Below low normal [facility] ([facility] Alt/SGPT 47 U/L 12-78 Normal (applies to non-numeric resul ts) [facility] ([facility] Ast/Sgot 32 U/L 7-37 Normal (applies to non-numeric resul ts) [facility] ([facility] Bilirubin,Total 0.4 mg/dL 0.2-1.0 Normal (applies to non-numeric results) [facility] Alkaline Phosphatase 103 U/L 45-117 Normal (applies to non-num rodrigo results) [facility] ([facility] Total Protein 6.1 GM/DL 6.4-8.2 Below low normal [facility] ([facility] Albumin/Globulin Ratio 1.1 Normal (applies to non-n umeric results) [facility] Albumin 3.2 GM/DL 3.2-5.2 Normal (applies to non-numeric resul ts) [facility] ([facility] ID Date Data Source [id number] 06/13/2020 09:54:00 PM EST [facility] ([facility] Name Value Range Interpretation Code Description Data Izabela rce(s) Supporting Document(s) Red Blood Count 3.36 10 4.30-6.10 Below low normal [facility] White Blood Count 6.3 10 4.0-10.0 Normal (applies to non-numeri c results) [facility] ([facility] Hemoglobin 9.9 g/dL 13.5-17.5 Below low normal [facility] ( [facility] Hematocrit 32.0 % 42.0-52.0 Below low normal [facility] ( [facility] Mean Corpuscular Volume 95.2 fl 80.0-96.0 Normal ( applies to non-numeric results) [facility] ([facility] ) Mean Corpuscular Hemoglobin 29.5 pg 27.0-33.0 Norm al (applies to non-numeric results) [facility] ([facility] ) Mean Corpuscular HGB Conc 30.9 g/dL 32.0-36.5 Below low normal [facility] ([facility] Red Cell Distribution Width 14.2 % 11.5-14.5 Norm al (applies to non-numeric results) [facility] Platelet Count, Automated 224 10 150-450 Normal (applies to non-numeric results) [facility] ([facility] ) Neutrophils % 66.7 % 36.0-66.0 Above high normal [facility] ([facility] Lymph % 22.3 % 24.0-44.0 Below low normal [facility] ( [facility] [place] % 8.7 % 0.0-5.0 Above high normal [facility] ([facility] Eos % 1.3 % 0.0-3.0 Normal (applies to non-numeric resul ts) [facility] ([facility] Baso % 0.5 % 0.0-1.0 Normal (applies to non-numeric resul ts) [facility] Immature Granulocyte % 0.5 % 0-3.0 Normal (applies to non-n umeric results) [facility] Nucleated Red Blood Cell % 0.0 % 0-0 Normal (applies to n on-numeric results) [facility] Neutrophils # 4.2 10 1.5-8.5 Normal (applies to non-numeric re sults) [facility] ([facility] Lymph # 1.4 10 1.5-5.0 Below low normal [facility] ( [facility] [place] # 0.6 10 0.0-0.8 Normal (applies to non-numeric resul ts) [facility] Eos # 0.1 10 0.0-0.5 Normal (applies to non-numeric resul ts) [facility] Baso # 0.0 10 0.0-0.2 Normal (applies to non-numeric resul ts) [facility] ID Date Data Source [id number] 05/30/2020 12:00:00 PM EST [facility] Name Value Range Interpretation Code Description Data Izabela rce(s) Supporting Document(s) Laboratory test finding (navigational concept) Laboratory test result [facility] ([facility] Occult Blood Reenter Laboratory test result [facility] { DATE COLLECTED 05/28/20 { HEMOCCULT LOT # [id number] ) { LOT EXP DATE 07/06 ) Laboratory test finding (navigational concept) Laboratory test result [facility] ([facility] Laboratory test finding (navigational concept) Laboratory test result [facility] Laboratory test finding (navigational concept) Laboratory test result [facility] ([facility] ID Date Data Source [id number] 05/31/2020 03:14:00 PM [facility] Name Value Range Interpretation Code Description Data Izabela rce(s) Supporting Document(s) OCCULT BL #1 NEGATIVE NORMAL: NEGATIVE [facility] NEGATIVE{ DATE COLLECTED OCCULT BL #2 NEGATIVE NORMAL: NEGATIVE [facility] NEGATIVE{ DATE COLLECTED OCCULT BL #3 NEGATIVE NORMAL: NEGATIVE [facility] NEGATIVE{ DATE COLLECTED { HEMOCCULT LOT # [id number] ){ LOT EXP DATE 07/06 ) CEDURAL CONTROL PO /NEG [facility] ID Date Data Source [id number] 05/28/2020 02:55:00 PM EST [facility] ([facility] [facility] Name Value Range Interpretation Code Description Data Izabela rce(s) Supporting Document(s) Microscopic observation [Identifier] in Unspecified specimen by Non- gynecological cytology method Laboratory test result [facility] ([facility] SPECIMEN: Urine 100ml Hazy yellow SPECIMEN ADEQUACY: Satisfactory for evaluation CATEGORIZATION: Negative for High-Grade Urothelial Carcinoma DESCRIPTIONS: Specimen consists mainly of abundant neutrophils COMMENTS: 05/29/2020 - 920 Signed CONCEPCION LENZ(ASCP) 05/29/2020 0921 (Prelim) Signed TROY JALLOH MD 05/29/2020 1218 ID Date Data Source [id number] 05/28/2020 02:24:00 PM EST [facility] ([facility] Name Value Range Interpretation Code Description Data Izabela rce(s) Supporting Document(s) Urate [Mass/volume] in Serum or Plasma 6.5 mg/dL 3.5-7.2 Normal (applies to non- numeric results) [facility] ([facility] ) Prostate specific Ag [Mass/volume] in Serum or Plasma 0.24 ng/mL Normal (applies to non-numeric results) [facility] ([facility] The PSA assay is performed on the ShopGo analyzer by LOCI sandwich chemiluminescent immunoassay and should not be compared interchangeably with other methods. It should not be used alone as a screening test or diagnosis for the presence or absence of malignant disease. Predictions of disease recurrence should not be based solely on values obtained from serial patient serum values. Carcinoembryonic Ag [Mass/volume] in Serum or Plasma 1.6 ng/mL Normal (applies to non-numeric results) [facility] ([facility] THE CEA ASSAY IS PERFORMED ON THE Appetite+ BY CHEMILUMINESCENCE AND SHOULD NOT BE COMPARED INTERCHANGEABLY WITH OTHER METHODS. IT SHOULD NOT BE USED ALONE A SCREENING TEST OR DIAGNOSIS FOR THE PRESENCE OR ABSENCE OF MALIGNANT DISEASE. PREDICTIONS OF DISEASE RECURRENCE SHOULD NOT BE BASED SOLELY ON VALUES OBTAINED FROM SERIAL PATIENT SERUM VALUES. ID Date Data Source [id number] 05/28/2020 02:24:00 PM EST [facility] ([facility] Name Value Range Interpretation Code Description Data Izabela rce(s) Supporting Document(s) Glucose, Fasting 83 mg/dL 70-100 Normal (applies to non-numeric results) [facility] ([facility] Blood Urea Nitrogen 59 mg/dL 7-18 Above high normal [facility] ([facility] Glomerular Filtration Rate 14.3 Below low normal [facility] ([facility] <content>Units are mL/min/1.73 m2</content>
<content></content>
<content>Chronic Kidney Disease Staging per NKF:</content>
<content></content>
<content>Stage I & II GFR >=60 Normal to Mildly Decreased</content>
<content>Stage III GFR 30- 59 Moderately Decreased</content>
<content>Stage IV GFR 15-29 Severely Decreased</content>
<content>Stage V GFR <15 Very Little GFR Left</content>
<content>ESRD GFR <15 on [employer]</content>
<content></content> Creatinine For GFR 4.23 mg/dL 0.70-1.30 Above high normal [facility] ([facility] Sodium Level 144 meq/L 136-145 Normal (applies to non-numeric res ults) [facility] ([facility] Potassium Serum 5.2 meq/L 3.5-5.1 Above high normal ME [facility] ([facility] Chloride Level 114 meq/L 98-107 Above high normal [facility] ([facility] Anion Gap 4 meq/L 8-16 Below low normal [facility] ( [facility] Carbon Dioxide Level 26 meq/L 21-32 Normal (applies to non-num rodrigo results) [facility] ([facility] Calcium Level 8.5 mg/dL 8.8-10.2 Below low normal [facility] T ([facility] Ast/Sgot 25 U/L 7-37 Normal (applies to non-numeric resul ts) [facility] ([facility] Alkaline Phosphatase 105 U/L 45-117 Normal (applies to non-num rodrigo results) [facility] ([facility] Alt/SGPT 31 U/L 12-78 Normal (applies to non-numeric resul ts) [facility] ([facility] Bilirubin,Total 0.2 mg/dL 0.2-1.0 Normal (applies to non-numeric results) [facility] ([facility] Total Protein 6.3 GM/DL 6.4-8.2 Below low normal [facility] T ([facility] Albumin 3.3 GM/DL 3.2-5.2 Normal (applies to non-numeric resul ts) [facility] ([facility] Albumin/Globulin Ratio 1.1 Normal (applies to non-n umeric results) [facility] ([facility] ID Date Data Source [id number] 05/28/2020 02:24:00 PM EST [facility] ([facility] Name Value Range Interpretation Code Description Data Izabela rce(s) Supporting Document(s) Inr 1.02 Normal (applies to non-numeric resul ts) [facility] ([facility] THERAPUTIC HUMAN INR VALUES INDICATIONS NORMAL RANGES PROPHYLAXIS/TREATMENT OF: VENOUS THROMBOSIS 2.0-3.0 PULMONARY EMBOLISM 2.0-3.0 PREVENTION OF SYSTEMIC EMBOLISM FROM: TISSUE HEART VALVES 2.0-3.0 ACUTE MYOCARDIAL INFARCTION 2.0-3.0 VALVULAR HEART DISEASE 2.0-3.0 ATRIAL FIBRILLATION 2.0-3.0 MECHANICAL VALVES(HIGH RISK) 2.5-3.5 RECURRENT MYOCARDIAL INFARCTION 2.5-3.5 Prothrombin Time 13.6 s 12.5-14.3 Normal (applies to non-numeric results) [facility] ([facility] Partial Thromboplastin Time 28.8 s 24.2-38.5 Norm al (applies to non-numeric results) [facility] ([facility] ) ID Date Data Source [id number] 05/28/2020 02:24:00 PM EST [facility] ([facility] Name Value Range Interpretation Code Description Data Izabela rce(s) Supporting Document(s) White Blood Count 5.4 10 4.0-10.0 Normal (applies to non-numeri c results) [facility] ([facility] Red Blood Count 3.15 10 4.30-6.10 Below low normal [facility] ([facility] Hemoglobin 9.6 g/dL 13.5-17.5 Below low normal [facility] ( [facility] Mean Corpuscular Volume 95.9 fl 80.0-96.0 Normal ( applies to non-numeric results) [facility] ([facility] ) Hematocrit 30.2 % 42.0-52.0 Below low normal [facility] ( [facility] Mean Corpuscular Hemoglobin 30.5 pg 27.0-33.0 Norm al (applies to non-numeric results) [facility] ([facility] ) Mean Corpuscular HGB Conc 31.8 g/dL 32.0-36.5 Below low normal [facility] ([facility] Red Cell Distribution Width 12.5 % 11.5-14.5 Norm al (applies to non-numeric results) [facility] ([facility] ) Platelet Count, Automated 184 10 150-450 Normal (applies to non-numeric results) [facility] ([facility] ) Lymph % 32.9 % 24.0-44.0 Normal (applies to non-numeric resul ts) [facility] ([facility] Neutrophils % 49.8 % 36.0-66.0 Normal (applies to non-numeric re sults) [facility] ([facility] [place] % 11.0 % 0.0-5.0 Above high normal [facility] ([facility] Baso % 0.9 % 0.0-1.0 Normal (applies to non-numeric resul ts) [facility] ([facility] Eos % 5.2 % 0.0-3.0 Above high normal [facility] ([facility] Immature Granulocyte % 0.2 % 0-3.0 Normal (applies to non-n umeric results) [facility] ([facility] Neutrophils # 2.7 10 1.5-8.5 Normal (applies to non-numeric re sults) [facility] ([facility] Nucleated Red Blood Cell % 0.0 % 0-0 Normal (applies to n on-numeric results) [facility] ([facility] Lymph # 1.8 10 1.5-5.0 Normal (applies to non-numeric resul ts) [facility] ([facility] [place] # 0.6 10 0.0-0.8 Normal (applies to non-numeric resul ts) [facility] ([facility] Baso # 0.1 10 0.0-0.2 Normal (applies to non-numeric resul ts) [facility] ([facility] Eos # 0.3 10 0.0-0.5 Normal (applies to non-numeric resul ts) [facility] ([facility] ID Date Data Source [id number] 05/18/2020 05:50:00 PM EST [facility] ([facility] Name Value Range Interpretation Code Description Data Izabela rce(s) Supporting Document(s) Basic Metabolic Pane Laboratory test result [facility] ([facility] .~.~C61 Sodium 142 meq/L 134-153 [facility] ([facility] .~.~C61 Potassium 4.9 meq/L 3.6-5.0 [facility] ([facility] .~.~C61 Chloride 107 meq/L 98-107 [facility] ([facility] .~.~C61 Co2 24 meq/L 22-30 [facility] ([facility] .~.~C61 Glucose 106 mg/dL 65-110 [facility] ([facility] .~.~C61 BUN 53 mg/dL 7-21 Above high normal [facility] .~.~C61 Creatinine 3.1 mg/dL 0.7-1.5 Above high normal [facility] ([facility] .~.~C61 Calcium 8.7 mg/dL 8.4-10.2 [facility] ([facility] .~.~C61 BUN/Creat 17 8-27 [facility] ([facility] .~.~C61 Anion Gap 11.0 mmol/L 8.0-16.0 [facility] ([facility] .~.~C61 Age 84 yrs [facility] ([facility] .~.~C61 Afr Amer GFR 25 mL/min [facility] ([facility] .~.~C61 Non-Aa GFR 21 mL/min [facility] ([facility] .~.~C61 ID Date Data Source [id number] 05/18/2020 05:50:00 PM EST [facility] ([facility] Name Value Range Interpretation Code Description Data Izabela rce(s) Supporting Document(s) Prostate specific Ag [Mass/volume] in Serum or Plasma 0.23 ng/mL 0.00 -4.00 [facility] ([facility] .~.~C61 ID Date Data Source [id number] 05/18/2020 06:51:00 PM [facility] Name Value Range Interpretation Code Description Data Izabela e(s) Supporting Document(s) BASIC METABOLIC PANEL [facility] BASIC METABOLIC PANEL Sodium [Moles/volume] in Serum or Plasma 142 mEq/L 134 - 153 [facility] Potassium [Moles/volume] in Serum or Plasma 4.9 mEq/L 3.6 - 5.0 [facility] Chloride [Moles/volume] in Serum or Plasma 107 mEq/L 98 - 107 [facility] Carbon dioxide, total [Moles/volume] in Serum or Plasma 24 MEQ/L 22 - 30 [facility] Glucose [Mass/volume] in Serum or Plasma 106 MG/DL 65 - 110 [facility] BUN 53 MG/DL 7 - [facility] Creatinine [Mass/volume] in Serum or Plasma 3.1 MG/DL 0.7 - 1.5 H [facility] BUN/CREAT 17 8 - 27 [facility] Calcium [Mass/volume] in Serum or Plasma 8.7 MG/DL 8.4 - 10.2 [facility] Anion gap 3 in Serum or Plasma 11.0 mmol/L 8.0 - 16.0 [facility] 84 [facility] GFR 25 mL/min [facility] NON-AA GFR 21 mL/min [facility] hussein Male GFR Inter prentation 20-49 yrs >60 mL/min Normal 50-59 yrs >56 mL/min Normal 60-69 yrs >49 mL/min Normal 70-79yrs >42 mL/min Normal 80 and above >35 mL/min Normal Female GFR Interpretation 20-39 yrs >60 mL/min Normal 40-49 yrs >58 mL/min Normal 50-59 yrs >51 mL/min Normal 60-69 yrs >45 mL/min Normal 70-79 yrs >39 mL/min Normal 80 and above >32 mL/min Normal ID Date Data Source [id number] 05/18/2020 06:40:00 PM EST [facility] Name Value Range Interpretation Code Description Data Izabela rce(s) Supporting Document(s) Prostate specific Ag [Mass/volume] in Serum or Plasma 0.23 ng/mL 0.00 - 4.00 [facility] \\BLDo\\PSA INTERPRETA TION\\BLDx\\ The PSA assay should not be used alone for a screening test or diagnosis for presence or absence of malignant disease. Predictions of disease recurrence should not be based solely on values obtained from serial patient serum values. The PSA result was determined by "[employer]", on the Flora ANY 6000. Values obtained with different assay methods or kits cannot be used interchangeably. ID Date Data Source [id number] 04/06/2020 09:31:00 AM EDT [facility] [address] [place] [address] PHONE: [phone] FAX: [phone] Name .................. : CALLIE Young Acct Number.................. : [id number] ROOM. ................. : MR Number ................... : [id number] Stay type ............. : O/P Discharge Date......... ... : 04/04/20 Admit Date ......... : 04/04/20 Admit Phys .................... : OBENFELIX Date of ....... : 1935 Family Phys ................... : MAN SUAREZ Phone .................. : [phone] Age ................................ : 84 Film# .................. .:[id number] Sex ................................. 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 FINDINGS: Lung bases are clear. No distinct nodule or infiltrate is identified. Liver shows suspicion for a very subtle hypodense lesion in the right hepatic lobe measuring approximately 2.1 cm. A contrast enhanced study may be helpful for further evaluation. If patient is unable to have contrast, then MR may be helpful. The remainder of the liver appears unremarkable. This was not clearly visualized on the previous study from 12/14/2019, which was enhanced. Gallbladder appears unremarkable. Spleen shows calcified granulomata, unchanged. The adrenal glands appear unremarkable. Right kidney demonstrates a cyst posteriorly, unchanged as compared to previous study measuring approximately 2.7 cm. Hounsfield units measure approximately 7. There are parapelvic cysts and an extra-renal pelvis on the left side unchanged compared to the previous exam ination. The pancreas is within normal limits. Moderate stool is identified throughout the colon. No free fluid is identified. There is a fat-containing inguinal hernia on the right, and a left inguinal hernia which contains small bowel and no clear evidence of obstruction. The small bowel involvement is increased as compared to the previous examination. A Ahn catheter is present. The urinary bladder is decompressed and not well evaluated. This is not significantly changed as compared to the previous study. Diverticulosis is identified without clear evidence of diverticulitis. IMPRESSION: Suspicion for a possible very subtle lesion in the right hepatic lobe at image #36 measuring approximately 2 cm. This is not clearly visualized on the previous examination. A contrast- enhanced CT or MRI should be considered for further evaluation. Stable dilatation of the left ureter and left renal collecting system. Stable bladder wall thickening on the left side. Page 1 of [address] [address] PHONE: [phone] FAX: [phone] Name .................. : CALLIE Young Acct Number.................. : [id number] ROOM. ................. : MR Number ................... : [id number] Stay type ............. : O/P Discharge Date......... ... : 04/04/20 Admit Date ......... : 04/04/20 Admit Phys .................... : OBENFELIX Date of ....... : 1935 Family Phys ................... : MAN [employer] Phone .................. : [phone] Age ................................ : 84 Film# .................. .:[id number] Sex ................................. 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 No evidence of obstruction is identified. While performing the above CT examination, radiation dose reduction was accomplished utilizing automated exposure control, adjusting of the mA and kV based on the patient's body size and/or the use of imperative reconstructive techniques. CT dose 614.2 mGycm. Examination dictated by EDITH Vidal. Examination was reviewed with Thanh Dobbs MD, radiologist at the time of this dictation. Electronically Reviewed and Signed By Thanh Dobbs MD , 04/06/20 09:31, KG Transcribe Initials: SSR, Transcribe Date: 04/05/20 07:05, Dictation Date: Copy for: LESLEE TUCKER via fax Copy for: MAN EBER via fax Copy for: [address] [place] [address] REC Page 2 of 2 Name Value Range Interpretation Code Description Data Izabela rce(s) Supporting Document(s) ID Date Data Source [id number] 04/06/2020 09:30:00 AM EDT [facility] [address] [place] [address] PHONE: [phone] FAX: [phone] Name .................. : CALLIE Young Acct Number.................. : [id number] ROOM. ................. : MR Number ................... : [id number] Stay type ............. : O/P Discharge Date......... ... : 04/04/20 Admit Date ......... : 04/04/20 Admit Phys .................... : OBENFELIX Date of ....... : 1935 Family Phys ................... : MAN SUAREZ Phone .................. : [phone] Age ................................ : 84 Film# .................. .:[id number] Sex ................................. 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 Contrast was not administered due to creatinine of 1.9. Comparison is made to a previous examination from 12/14/2019. FINDINGS: Visualized portions of the neck appear unremarkable. No enlarged adenopathy is identified in the mediastinum. A small amount of fluid is identified in the pericardium, which has not significantly changed. This is noted at the superior pericardial recess. Heart appears unremarkable. Visualized portions of the upper abdomen will be discussed further in the CT scan of the abdomen report. Lung thomson show mild atelectasis. COPD is suspected. There is a calcified granuloma identified at the left upper lobe, image #55. No distinct non-calcified nodules are identified. There are diffuse degenerative changes. IMPRESSION: COPD. No distinct non-calcified nodules are identified. Findings of the upper abdomen are significant and discussed in the CT scan of the abdomen and pelvis report. While performing the above CT examination, radiation dose reduction was accomplished utilizing automated exposure control, adjusting of the mA and kV based on the patient's body size and/or the use of imperative reconstructive techniques. CT dose 614.2 mGycm. Page 1 of 3 [facility] [address] [place] [address] [place] [address] PHONE: [phone] FAX: [phone] Name .................. : CALLIE Young Acct Number.................. : [id number] ROOM. ................. : Number ................... : [id number] Stay type ............. : O/P Discharge Date......... ... : 04/04/20 Admit Date ......... : 04/04/20 Admit Phys .................... : OBENFELIX Date of ....... : 1935 Family Phys ................... : [employer] Phone .................. : [phone] Age ................................ : 84 Film# .................. .:[id number] Sex ................................. 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 Examination was reviewed with Thanh Dobbs MD, radiologist at the time of this dictation. Electronically Reviewed and Signed By Thanh Dobbs MD , 04/04/20 12:24, KGG Transcribe Initials: SSR, Transcribe Date: 04/04/20 11:27, Dictation Date: Copy for: LESLEE TUCKER via fax Copy for: MAN DILLARD via fax Copy for: Serge [facility] REC 04/04/20 AT 12:10 ADDENDUM/REDICTATION BY EDITH LINN/THANH DOBBS MD: COMPARISON: Previous examination from 12/14/19. FINDINGS: The thoracic inlet appears unremarkable. No evidence of enlarged adenopathy is identified in the mediastinum. A small amount of fluid is identified in the superior pericardial recess, unchanged as compared to the previous study. The heart appears unremarkable. The visualized portions of the upper abdomen show significant findings as discussed on the CT scan of the abdomen and pelvis report. There are scattered pulmonary nodules which are not significantly changed as compared to the previous examination. The largest is at the right lower lobe (image 61), measuring approximately 5 mm in size. A second nodule is identified at the right lower lobe (image 69), measuring 2 mm. A third nodule is identified in the right middle lobe measuring 4 mm on image 74. The previously noted tiny nodules at the left lower lobe are again identified and remain stable. COPD is present. No focal infiltrate or consolidation. No pleural effusion is identified. The osseous structures demonstrate degenerative changes. Page 2 of 3 [facility] [address] [place] [address] PHONE: [phone] FAX: [phone] Name .................. : CALLIE Young Acct Number.................. : [id number] ROOM. ................. : MR Number ................... : [id number] Stay type ............. : O/P Discharge Date......... ... : 04/04/20 Admit Date ......... : 04/04/20 Admit Phys .................... : OBENFELIX Date of ....... : 1935 Family Phys ................... : MAN SUAREZ Phone .................. : [phone] Age ................................ : 84 Film# .................. .:[id number] Sex ................................. 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 Continued follow up in one year is recommended. Examination dictated by EDITH Vidal. Examination was reviewed with Thanh Dobbs MD, radiologist at the time of this dictation. Electronically Reviewed and Signed By Thanh Dobbs MD , 04/06/20 09:30, KG Transcribe Initials: DZ , Transcribe Date: 04/04/20 23:49, Dictation Date: Copy for: LESLEE TUCKER via fax Copy for: MAN DILLARD via fax Copy for: [facility] MED REC Page 3 of 3 Name Value Range Interpretation Code Description Data Izabela rce(s) Supporting Document(s) ID Date Data Source [id number] 04/04/2020 08:32:00 AM EDT [facility] ([facility]) Name Value Range Interpretation Code Description Data Izabela rce(s) Supporting Document(s) CT Thorax W/O Contrast Laboratory test result [facility] ([facility]) ID Date Data Source [id number] 04/04/2020 08:31:00 AM EDT [facility] ([facility]) Name Value Range Interpretation Code Description Data Izabela rce(s) Supporting Document(s) CT Abd & Pelv W/O Oral W/O IV Laboratory test result [facility] ([facility]) ID Date Data Source [id number] 03/28/2020 12:54:00 PM EDT [facility] 1 OrderSheet [facility] Department [address] [place] [address] Phone #: [phone] 03/28/2020 12:32 Patient: GOYO NUÑEZ Sex: M : 1935 Age: 84yWEIGHT:63.5 kg (S) HEIGHT:65 inches (S) BMI:23.3ALLERGIES: No Known Drug AllergyCHIEF COMPLAINT: Ahn problemDIAGNOSIS: Change of urethral catheter, Urinary tract infectious diseaseLAB ORDERSOrder Description Priority Entered Acknowledged InitialedCBC w Diff STAT 13:04 03/28/2020 13:14 [facility] international marketing executiveTerrell ER Physician; [id number] STAT 13:04 03/28/2020 13:14 [facility] Vera international marketing executiveGiancarloTerrell ER Physician; [id number] (Cath STAT 13:04 03/28/2020 13:19 Angela Joy) Edgar Sharma Physician;DIAGNOSTIC STUDY ORDERSOrder Description Priority Entered Acknowledged InitialedMEDICATION/IV/DRIP/FLUID ORDERSOrder Description Priority Entered Acknowledged InitialedGENERAL ORDERSOrder Description Priority Entered Acknowledged Initialed-- (Remove ahn 13:04 03/28/2020 13:19 Rufino,and replace with Edgar Colvin ahn cath) Physician;[Electronically signed by Zachary Joy (13:57 03/28/2020)][Electronically signed by Edgar Vera Physician (22:22 03/28/2020)][Electronically locked by Zachary Joy (13:57 03/28/2020)] Name Value Range Interpretation Code Description Data Izabela rce(s) Supporting Document(s) ID Date Data Source [id number] 03/28/2020 12:54:00 PM EDT [facility] 1 Medication Reconciliation Report [facility] Emergency Department [address] [place] [address] Phone #: ext- [phone] 03/28/2020 12:32 Patient: GOYO NUÑEZ Sex: M : 1935 Age: 84yWeight: 63.5 kgHeight/Length: 65 in.BMI: 23.3ALLERGIES: No Known Drug AllergyThe patient's Home Medications are listed below:Unknown.The source(s) of the original Home Medication information:Not obtained.The following Medications were given to the patient in the Emergency Department:None.The following Medications were prescribed to the patient:Cipro 500 mg tablet Take 1 tablet twice a day for 7 days -- for catheter-associated UTI. Dispense 14tablet. Refills: 0. Substitution permitted.Pharmacy - [facility] [address] [place] [address] ; [place], [place] [id number]. . -- Edgar Vera, Physician Name Value Range Interpretation Code Description Data Izabela rce(s) Supporting Document(s) ID Date Data Source [id number] 03/28/2020 12:54:00 PM EDT [facility] 1 Medication Administration Record [facility] Emergency Department [address] [place] [address] Phone #: ext- [phone] 03/28/2020 12:32 Patient: GOYO NUÑEZ Sex: M : 1935 Age: 84yWeight: 63.5 kgHeight/Length: 65 inBMI: 23.3ALLERGIES: No Known Drug AllergyDate/Time Medication Administered Medication Ordered Name Value Range Interpretation Code Description Data Izabela rce(s) Supporting Document(s) ID Date Data Source [id number] 03/28/2020 12:54:00 PM EDT [facility] 1 General Instructions [facility] Emergency Department [address] [place] [address] Phone #: ext- [phone] 03/28/2020 12:32 Patient: GOYO NUÑEZ Sex: M : 1935 Age: 84yFoley catheter replacement (S/P leaking 16Fr. catheter on ED arrival).Acute urinary tract infection with cystitis associated with indwelling catheter. No hematuria. Not associatedwith obstruction.INSTRUCTIONSDrink plenty of fluids.(No new meds.).Warnings: GENERAL WARNINGS: Return or contact your physician immediately if your conditionworsens or changes unexpectedly, if not improving as expected, or if other problems arise.Prescription Medications:Cipro 500 mg tablet Take 1 tablet twice a day for 7 days -- for catheter-associated UTI. Dispense 14tablet. Refills: 0. Substitution permitted.Pharmacy - [facility] [id number] [place], [place] [id number]. .Understanding of the discharge instructions verbalized by patient.Follow-up with: Fidel Marshall M.D., Urology, , [address] [place] [address], [id number] Follow up as scheduled. Reason for referral: evaluation, treatment and Neurogenic bladder / Foleyreplacements. ADDITIONAL INFORMATIONFoley Catheter Care 2 General Instructions [facility] Emergency Department [address] [place] [address] Phone #: ext- [phone] 03/28/2020 12:32 Patient: GOYO NUÑEZ Sex: M : 1935 Age: 84yA Ahn catheter is a rubber tube that is placed through the urethra (opening where urine comes out)and into the bladder. This helps drain urine from the bladder. There is a small balloon on the end ofthe tube that is inflated after insertion. This keeps the catheter from sliding out of the bladder.A Ahn catheter is used to treat urinary retention (unable to pass urine). It is also used when there isincontinence (loss of bladder control).Home care Finish taking any prescribed antibiotic even if you are feeling better before then. It is important to keep bacteria from getting into the collection bag. Do not disconnect the catheter from the collection bag. Use a leg band to secure the drainage tube, so it does not pull on the catheter. Drain the collection bag when it becomes full using the drain spout at the bottom of the bag. Do not try to pull or remove your catheter. This will injure your urethra. It must be removed by your healthcare provider or nurse.Follow-up careFollow up with your healthcare provider as advised for repeat urine testing and catheter removal orreplacement.When to seek medical adviceCall your healthcare provider right away if any of these occur: Fever of 100.4F (38C) or higher, or as directed by your healthcare provider 3 General Instructions [facility] Emergency Department [address] [place] [address] Phone #: ext- [phone] 03/28/2020 12:32 Patient: GOYO NUÑEZ Sex: M : 1935 Age: 84y Bladder pain or fullness Abdominal swelling, nausea or vomiting, or back pain Blood or urine leakage around the catheter Bloody urine coming from the catheter (if a new symptom) Catheter falls out Catheter stops draining for 6 hours Weakness, dizziness, or fainting [id number] [employer]. [address] [place] [address]. All rights reserved. This information is not intended as asubstitute for professional medical care. Always follow your healthcare professional's instructions.Bladder Infection, Male (Adult)You have a bladder infection.Urine is normally free of bacteria. But bacteria can get into the urinary tract from the skin around therectum or it may travel in the blood from elsewhere in the body.This is called a urinary tract infection (UTI). An infection can occur anywhere in the urinary tract. Itcould be in a kidney (pyelonephritis)or in the bladder (cystitis) and urethra (urethritis). The urethra isthe tube that drains the urine from the bladder through the tip of the penis.The most common place for a UTI is in the bladder. This is called a bladder infection. Most bladderin fections are easily treated. They are not serious unless the infection spreads up to the kidney. 4 General Instructions [facility] Emergency Department [address] [place] [address] Phone #: ext- [phone] 03/28/2020 12:32 Patient: GOYO NUÑEZ Sex: M : 1935 Age: 84yThe terms bladder infection, UTI, and cystitis are often used to describe the same thing, but theyaren't always the same. Cystitis is an inflammation of the bladder. The most common cause of cystitisis an infection.Keep in mind: Infections in the urine are called UTIs. Cystitis is usually caused by a UTI. Not all UTIs and cases of cystitis are bladder infections. Bladder infections are the most common type of cystitis.Symptoms of a bladder infectionThe infection causes inflammation in the urethra and bladder. This inflammation causes many of thesymptoms. The most common symptoms of a bladder infection are: Pain or burning when urinating Having to go more often than usual Feeling like you need to go right away Only a small amount comes out Blood in urine Discom fort in your belly (abdomen), usually in the lower abdomen, above the pubic bone Cloudy, strong, or bad smelling urine Unable to urinate (retention) Urinary incontinence Fever Loss of appetiteOlder adults may also feel confused.Causes of a bladder infectionBladder infections are not contagious. You can't get one from someone else, from a toilet seat, orfrom sharing a bath.The most common cause of bladder infections is bacteria from the bowels. The bacteria get onto theskin around the opening of the urethra. From there they can get into the urine and travel up to the General [facility] Emergency Department [address] [place] [address] Phone #: ext- [phone] 03/28/2020 12:32 Patient: GOYO NUÑEZ Sex: M : 1935 Age: 84ybladder. This causes inflammation and an infection. This usually happens because of: An enlarged prostate Poor cleaning of the genitals Procedures that put a tube in your bladder, like a Ahn catheter Bowel incontinence Older age Not emptying your bladder (The urine stays there, giving the bacteria a chance to grow.) Dehydration (This allows urine to stay in the bladder longer.) Constipation (This can cause the bowels to push on the bladder or urethra and keep the bladder from emptying.)TreatmentBladder infections are treated with antibiotics. They usually clear up quickly without complications.Treatment helps prevent a more serious kidney infection.MedicinesMedicines can help in the treatment of a bladder infection: You may have been given phenazopyridine to ease burning when you urinate. It will cause your urine to be bright orange. It can stain clothing. You may have been prescribed antibiotics. Take this medicine until you have finished it, even if you feel better. Taking all of the medicine will make sure the infection has cleared.You can use acetaminophen or ibuprofen for pain, fever, or discomfort, unless another medicine wasprescribed. You can also alternate them, or use both together. They work differently and are adifferent class of medicines, so taking them together is not an overdose. If you have chronic liver orkidney disease, talk with your healthcare provider before using these medicines. Also talk with yourprovider if you've had a stomach ulcer or GI bleeding or are taking blood thinner medicines.Home careHere are some guidelines to help you care for yourself at home: Drink plenty of fluids, unless your healthcare provider told you not to. Fluids will prevent dehydration and flush out your bladder. Use good personal hygiene. Wipe from front to back after using the toilet, and clean your 6 General Instructions [facility] Emergency Department [address] [place] [address] Phone #: ext- [phone] 03/28/2020 12:32 Patient: GOYO NUÑEZ Sex: M : 1935 Age: 84y penis regularly. If you aren't circumcised, retract the foreskin when cleaning. Urinate more frequently, and don't try to hold it in for long periods of time, if possible. Wear loose-fitting clothes and cotton underwear. Avoid tight- fitting pants. This helps keep you clean and dry. Change your diet to prevent constipation. This means eating more fresh foods and more fiber, and less junk and fatty foods. Avoid sex until your symptoms are gone. Avoid caffeine, alcohol, and spicy foods. These can irritate the bladder.Follow-up careFollow up with your healthcare provider, or as advised if all symptoms have not cleared up within 5days. It is important to keep your follow-up appointment. You can talk with your provider to see if youneed more tests of the urinary tract. This is especially important if you have infections that keepcoming back.If a culture was done, you will be told if your treatment needs to be changed. If directed, you cancall to find out the results.If X-rays were taken, you will be told of any findings that may affect your care.Call [phone] if any of these occur: Trouble breathing Difficulty waking up Feeling confused Fainting or loss of consciousness Rapid heart rateWhen to seek medical adviceCall your healthcare provider right away if any of these occur: Fever of 100.4F (38C) or higher, or as directed by your healthcare provider Your symptoms don't improve after 2 days of treatment Back or abdominal pain that gets worse 7 General Instructions [facility] Emergency Department [address] [place] [address] Phone #: ext- [phone] 03/28/2020 12:32 Patient: GOYO NUÑEZ Sex: M DO B: 1935 Age: 84y Repeated vomiting, or you aren't able to keep medicine down Weakness or dizziness [phone] [employer] [place] [address]. All rights reserved. This information is not intended as asubstitute for professional medical care. Always follow your healthcare professional's instructions. You have been given the following additional information: Ahn Catheter, Care Bladder Infection, Male (Adult)(Electronically signed by Edgar Vera, Physician 03/28/2020 22:22) Name Value Range Interpretation Code Description Data Izabela rce(s) Supporting Document(s) ID Date Data Source [id number] 03/28/2020 12:54:00 PM EDT [facility] 1 Clinical Report - Nurses [facility] Emergency Department [address] [place] [address] Phone #: ext- [phone] 03/28/2020 12:32 Patient: GOYO NUÑEZ Sex: M : 1935 Age: 84yTRIAGEArrived by private vehicle. Historian: patient. ( Pt states noted urine leaking from penis around foleycatheter. Ahn placed yesterday, leaking noted today. Denies pain.).Triage time: 12:40 03/28/2020. 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 Sepsis Screen negative. No suspected or confirmed signs ofinfection present. --12:47 03/28/20 Deanna Joy2:40 03/28/20. BP: 178/89. MAP: 118. HR: 80. RR: 16. O2 saturation: 100%. Temp: 98 F. Pain levelnow: 0/10. --12:47 03/28/20 Gray Joy Complaint: (leaking catheter).13:00 03/28/20. --13:56 03/28/20 Zachary Joy.Weight: 63.5 kg stated. Height/Length: 65 inches Per Patient. BMI: 23.3. --12:38 03/28/20 Zachary Joy.MedicationsUnknown. --13:54 03/28/20 Zachary Joy.AllergiesNo Known Drug Allergy. --13:54 03/28/20 Zachary Joy.Iipsyym55:47 03/28/20.PAST MEDICAL HX: Immunizations: up-to-date.SOCIAL HX: Never smoker. No alcohol use or drug use. HIV testing offered to patient. Hepatitis Ctesting offered to patient.SELF HARM ASSESSMENT: Self harm assessment was performed. The patient answered "no" to thequestion(s) "Have you recently felt down, depressed, or hopeless?", "Do you have thoughts of harming orkilling yourself?", "Do you have a plan for harming or killing yourself?", "Have you recently had thoughtsabout harming or killing others?", "Do you have any dangerous items in your poss ession?", "Have younoticed less interest or pleasure in doing things?", "Are you here because you tried to hurt yourself?" and 2 Clinical Report - Nurses [facility] Emergency Department [address] [place] [address] Phone #: ext- [phone] 03/28/2020 12:32 Patient: GOYO NUÑEZ Sex: M : 1935 Age: 84y "Have you ever tried to hurt yourself before today?". ABUSE ASSESSMENT: No report of abuse. NUTRITIONAL RISK ASSESSMENT: The nutritional risk assessment revealed no deficiencies. LEARNING NEEDS ASSESSMENT: The learning needs assessment revealed no barriers. FALL RISK ASSESSMENT: Fall risk assessment completed. Risk factors identified include patient age greater than 65 years, history of fall and impairment of mobility. Fall interventions initiated. Side rails up x2. Bed in low position. Brakes on. FUNCTIONAL ASSESSMENT: Functional assessment performed: uses walker and cane- this mobility impairment is an ongoing problem. SKIN INTEGRITY ASSESSMENT: Skin integrity risk assessment was performed. Risk factors identified include restricted mobility. --12:47 03/28/20 Zachary Joy 13:00 03/28/20. SOCIAL HX: The patient has not traveled outside the [place] Infectious disease exposure: No infectious disease exposure. The patient was not exposed to Coronavirus. --13:56 03/28/20 Zachary Joy. Interventions 12:47 03/28/20. To treatment room. --12:47 03/28/20 Zachary Joy.PHYSICAL RDLEHUIUEV26:50 03/28/20.GI / : ( [address], 10cc balloon. Urine leaking from meatus around catheter insertionsite. Denies pain.). --12:51 03/28/20 Zachary Joy.NURSING PROGRESS NOTES13:17 03/28/20. 18 fr urinary catheter present on arrival. During procedure hand hygiene observed andsterile equipment and aseptic technique used. Return of yellow-colored clear urine; attached to leg bag andsecured with strap. He tolerated procedure well. Checked patient name and birthdate: patient confirmed.Catheterized urine collected with return of yellow-colored clear urine; sample sent to lab for urin alysis.Specimen labeled in the presence of the patient. ( Pt presented to ED with 16 sao tomean ahn w/ 10ccballoon. 16 Argentine ahn removed. New 18 Argentine ahn inserted with minimal resistance, urine collected Pttolerated well. Will continue to monitor.). --13:22 03/28/20 Zachary Joy 13:45 03/28/20. ( New ahn catheter appears to no longer be leaking. Pt also states feels like it is no longer leakin. QMP aware.). --13:50 03/28/20 Zachary Joy.DISPOSITION / DISCHARGE 3 Clinical Report - Nurses [facility] Emergency Department [address] [place] [address] Phone #: ext- [phone] 03/28/2020 12:32 Patient: GOYO NUÑEZ Sex: M : 1935 Age: 84y 13:52 03/28/20. Departure time: 13:52 03/28/2020. Condition at departure: improved. No learning barriers present. Discharge instructions provided and reviewed with the patient. Reviewed referral to a urologist and primary care physician for followup. Patient verbalized understanding. Written instructions provided in Senegalese. The patient was discharged by the physician. He was discharged home. He left ambulatory and via private vehicle. Patient driving. --13:52 03/28/20 Zachary Joy 13:50 03/28/20. BP: 156/85. MAP: 108. HR: 80. RR: 16. O2 saturation: 98% on room air. Temp: 98.1 F. Pain level now: 0/10. --13:52 10/14/20 Zachary Joy.Locked/Released at 03/28/2020 13:57 by Zachary Joy, Name Value Range Interpretation Code Description Data Izabela rce(s) Supporting Document(s) ID Date Data Source [id number] 03/28/2020 12:54:00 PM EDT [facility] 1 Clinical Report - Physicians/Mid Levels [facility] Emergency Department [address] [place] [address] Phone #: ext- [phone] 03/28/2020 12:32 Patient: GOYO NUÑEZ Sex: M : 1935 Age: 84y Time Seen: 12:33 03/28/2020. Arrived- By private vehicle. Historian- patient. Disposition decision: 13:38 03/28/2020.HISTORY OF PRESENT ILLNESS Chief Complaint: AHN PROBLEM. (Leaking han cath). This started today and is still present. The problem is described as mild. It was abrupt in onset. No penile discharge, discomfort with urination, urinary frequency, genital lesion or testicular pain. No urgency of urination or flank pain. Able to void. Not voiding only small amounts. The patient has had Ahn catheter problems (Leaking around catheter). Sexual history is noncontributory. Similar symptoms previously. Patient has had similar symptoms chronically. 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 Recent medical care: The patient was seen recently at another facility in the office. ( Seen at Dr. Marshall's office recently for Ahn change.).REVIEW OF SYSTEMSNo fever, chills, flank pain, hematuria or abdominal pain. No vomiting, diarrhea, black stools, bloodystools or headache. No sore throat, blurred vision, chest pain, difficulty breathing or cough. No joint pain,skin rash or back pain.PAST HISTORYPast history not negative. See nurses notes. Other disease. ( Prostate CAChronic bladder incontinence). Surgeries: TURP.SOCIAL HISTORYNever smoker. No alcohol use or drug use. No recent travel.ADDITIONAL NOTESThe nursing notes have been reviewed with agreement regarding the chief complaint, HPI, ROS, PMH andpatient medications and allergies.PHYSICAL EXAMVital Signs: 03/28/2020 12:40 BP: 178/89. MAP: 118. HR: 80. RR: 16. O2 saturation: 100%. Temp: 98 F.Pain level now: 0/10. Have been reviewed and appear to be correct. Hypertensive. Heart rate normal.Respiratory rate normal. Temperature normal. Oxygen saturation normal.Appearance: Alert. Oriented X3. Anxious. Patient in mild distress. In distress.ENT: Normal external inspection. Pharynx normal.Neck: Neck supple. 2 Clinical Report - Physicians[facility] Emergency Department [address] [place] [address] Phone #: ext- [phone] 03/28/2020 12:32 Patient: GOYO NUÑEZ Sex: M : 1935 Age: 84y CVS: Heart sounds normal. Respiratory: No respiratory distress. Painless inspiration. Breath sounds normal. Abdomen: Soft and nontender. Bowel sounds normal. No organomegaly. No mass. Back: Normal external inspection. : Normal genitalia. Testes descended. Ahn catheter (Slight urine leak around catheter). Skin: Skin warm and dry. Normal skin color. No rash. Normal skin turgor. Extremities: Extremities exhibit normal ROM. No lower extremity edema. Neuro: Oriented X 3. No motor deficit. No sensory deficit.LABS, X-RAYS, AND EKGLaboratory Tests: Laboratory tests have been ordered, with results reviewed and considered in themedical decision making process. Culture, Urine: (LISET: 03/28/2020 13:20) ( MsgRcvd 03/28/2020 16:27) Canceled SPECIMEN TYPE: R CBC w Diff: (LISET: 03/28/2020 13:20) ( MsgRcvd 03/28/2020 13:44) Final results Test Result Flag Units (Reference) CBC W/AUTOMATED DIFF COMPLETE BLOOD COUNT WBC 4.4 10/uL (4.2 - 11.0) RBC 3.79 L 10/uL (4.50 - 6.30) HEMOGLOBIN 11.5 L g/dL (14.0 - 16.0) HEMATOCRIT 35.2 L % (41.0 - 51.0) MCV 92.9 fL (80.0 - 94.0) MCH 30.3 pg (27.0 - 34.0) MCHC 32.7 g/dL (31.0 - 36.0) RDW 12.2 % (11.5 - 14.8) PLATELETS 188 10/uL (150 - 450) MPV 10.1 fL (7.4 - 10.4) NEUT 48.6 % (37.0 - 80.0) LYMPH 34.5 % (25.0 - 40.0) MONO 10.6 H % (3.0 - 8.0) EOS 5.2 % (0.0 - 7.0) BASO 0.9 % (0.0 - 2.0) %IG 0.2 H % (0.0 - 0.0) %NRBC 0.0 % (0.0 - 0.0) #NEUT 2.16 10/uL (2.00 - 6.90) #LYMPH 1.53 10/uL (0.60 - 3.40) #MONO 0.47 10/uL (0.00 - 0.90) #EOS 0.23 10/uL (0.00 - 0.70) #BASO 0.04 10/uL (0.00 - 0.20) #IG 0.01 10/uL (0.00 - 0.10) #NRBC 0.00 10/uL (0.00 - 0.00) MANUAL DIFF NOT INDICATED RBC MORPH NOT INDICATED CMP: (LISET: 03/28/2020 13:20) ( MsgRcvd 03/28/2020 14:02) Final results Test Result Flag Units (Reference) COMPREHENSIVE METABOLIC PANEL COMPREHENSIVE METABOLIC PANEL SODIUM 136 mEq/L (134 - 153) 3 Clinical Report - Physicians/Mid Levels [facility] Emergency Department [address] [place] [address] Phone #: ext- [phone] 03/28/2020 12:32 Patient: GOYO NUÑEZ Sex: M : 1935 Age: 84y POTASSIUM 4.9 mEq/L (3.6 - 5.0) CHLORIDE 101 mEq/L (98 - 107) CO2 26 MEQ/L (22 - 30) GLUCOSE 136 H MG/DL (65 - 110) BUN 37 H MG/DL (7 - 21) CREATININE 1.9 H MG/DL (0.7 - 1.5) BUN/CREAT 19 (8 - 27) TOTAL PROTEIN 6.3 G/DL (6.3 - 8.2) ALBUMIN 4.1 G/DL (3.9 - 5.0) GLOBULIN 2.2 L GM/DL (2.4 - 3.2) A/G RATIO 1.9 (0.8 - 2.0) CALCIUM 9.0 MG/DL (8.4 - 10.2) TOTAL BILI <0.7 MG/DL (0.2 - 1.3) ALKALINE PHOS 86 U/L (38 - 126) SGOT/AST 19 U/L (5 - 40) SGPT/ALT 17 U/L (7 - 56) ANION GAP 9.0 mmol/L (8.0 - 16.0) AGE 84 yrs NON-AA GFR 36 mL/min AFR AMER GFR 44 mL/min Male GFR Interprentation 20-49 yrs >60 mL/min Normal 50-59 yrs >56 mL/min Normal 60-69 yrs >49 mL/min Normal 70-79yrs > 42 mL/min Normal 80 and above >35 mL/min Normal Female GFR Interpretation 20-39 yrs >60 mL/min Normal 40-49 yrs >58 mL/min Normal 50-59 yrs >51 mL/min Normal 60-69 yrs >45 mL/min Normal 70-79 yrs >39 mL/min Normal 80 and above >32 mL/min Normal Urinalysis: (LISET: 03/28/2020 13:20) ( MsgRcvd 03/28/2020 13:59) Final results Test Result Flag Units (Reference) URINALYSIS URINALYSIS SOURCE R COLOR yellow (NORMAL: Yello CLARITY hazy (NORMAL: Clear SPEC GRAVITY 1.010 (1.001 - 1.030 pH 6.5 (5 - 9) GLUCOSE NORM (NORMAL: Negat BILIRUBIN NEG (NORMAL: Negat KETONE NEG (NORMAL: Negat PROTEIN 100 A (NORMAL: Negat NITRITE NEG (NORMAL: Negat BLOOD 250 A (NORMAL: Negat LEUK EST 500 A (NORMAL: Negat UROBILINOGEN NOR (less than 1.0 MICROSCOPIC See Below WBC TNTC A (NORMAL: NONE RBC 10 - 15 A (NORMAL: NONE EPITHELIAL FEW (NORMAL: NONE BACTERIA 2+ MOD A (NORMAL: NONE.PROGRESS AND PROCEDURESCourse of Care: 13:27 Mar 28 2020. Patient is stable. Symptoms much better. 13:27 Mar 28 2020. Nurse was able to remove initial leaking cath (16Fr.) and replace it with an 18Fr. cath 4 Clinical Report - Physicians/Mid Levels [facility] Emergency Department [address] [place] [address] Phone #: [phone] 03/28/2020 12:32 Patient: GOYO NUÑEZ Sex: M : 1935 Age: 84y without any resistance. So far no leakage is appreciated. Urinalysis and labs pending. 13:36 Mar 28 2020. Catheter is working well and not leaking. He wants to leave to go to his doctor's apptmt. at 14:00. Will discharge. Disposition: Discharged home in good and improved condition (13:38 Mar 28 2020). Condition: good.CLINICAL IMPRESSION Ahn catheter replacement (S/P leaking 16Fr. catheter on ED arrival). Acute urinary tract infection with cystitis associated with indwelling catheter. No hematuria. Not associated with obstruction.INSTRUCTIONS Drink plenty of fluids. (No new meds.). Warnings: GENERAL WARNINGS: Return or contact your physician immediately if your condition worsens or changes unexpectedly, if not improving as expected, or if other problems arise. Prescription Medications: Cipro 500 mg tablet Take 1 tablet twice a day for 7 days -- for catheter-associated UTI. Dispense 14 tablet. Refills: 0. Substitution permitted. Pharmacy - [id number] [address], [place] [id number]. FaxNumber: [phone]. Understanding of the discharge instructions verbalized by patient. Follow- up with: Fidel Marshall M.D., Urology, , [address] [place] [address], [phone] Follow up as scheduled. Reason for referral: evaluation, treatment and Neurogenic bladder / Ahn replacements.(Electronically signed by Edgar Vera, Physician 03/28/2020 22:22) Name Value Range Interpretation Code Description Data Izabela rce(s) Supporting Document(s) ID Date Data Source [id number] 03/28/2020 12:54:00 PM EDT [facility] for GOYO NUÑEZ VisitID: [id number] Date: 9:27urine culture grew gram negative rods, 100,00, pt sent home on Cipro 500mg bid(Electronically signed by Swati Barraza R.N. - 03/31/2020 9:27)04/02/2020 9:29urine culture grew gram negative rods greater than 100,000 colony, pt sent home n Cipro 500mg bid willneed to wait on C(Electronically signed by Swati Barraza R.N. - 04/02/2020 9:29)04/03/2020 16:33Lab results reviewed, urine culture sensitivity results show as follows: Organism 1. Pseudomonasaeruginosa greater than 100,000 cfu/mlOrganism 2. Citrobacter braakii 50,000-100,000 cfu/ml. Both Organisms suseptable to Ciprofloxacinwhich patient was prescribed.(Electronically signed by Katy Bond RN - 04/03/2020 16:33) Name Value Range Interpretation Code Description Data Izabela rce(s) Supporting Document(s) ID Date Data Source [id number] 03/28/2020 01:20:00 PM EDT [facility] ([facility] Name Value Range Interpretation Code Description Data Izabela rce(s) Supporting Document(s) Culture Urine Laboratory test result [facility] ([facility] _CULTURE URINE_ ^$[id number] ^^[id number] $$[id number] ^^[id number] $$[id number] $$[id number] $$204870 $$368543 $$935701 $$812707 $$466137 $$833647 $$746082 $$940256 $$543916 $$503814 $$574809 $$470935 $$607156 $$158297 $$062475 $$575233 $$858280 $$271444 $$970169 $$182626 $$385866 ^^709191 $$617603 $$030659 $$157289 -- Continued on next page -- Patient: CALLIE NANCE F Order: [id number] Page 2 Culture: CULTURE URINE Status: Final -- Continued on next page -- Patient: CALLIE NANCE F Order: [id number] Page 2 Culture: CULTURE URINE Status: Prelim -- Continued on next page -- Patient: CALLIE Young Order: [id number] Page 2 Culture: CULTURE URINE Status: Prelim -- Continued on next page -- Patient: CALLIE Young Order: Page 2 Culture: CULTURE URINE Status: Prelim $$[id number] $$[id number] REPORTED DATE/TIME: 04/03/2020 13:06 Culture: CULTURE URINE Status: Final Isolate 1 Pseudomonas aeruginosa Flag: A . . . . . . .5 Greater than 100,000 colony forming units per mL Previous result entered on 04/02/2020 07:17 ET Gram negative rods Previous result entered on 04/01/2020 11:15 ET Gram negative rods Previous result entered on 03/31/2020 05:40 ET Gram negative rods Urine Culture,Comprehensive: P1 Pseudomonas aeruginosa Flag: A Isolate 2 Citrobacter braakii Flag: A . . . . . . .1 50,000-100,000 colony forming units per mL Previous result entered on 04/02/2020 07:17 ET Gram negative rods 25,000-50,000 colony forming units per m L Citrobacter braakii Flag: A Patient: CALLIE Young Order: [id number] Page 3 Culture: CULTURE URINE Status: Final ISOLATE 1 Pseudomonas aeruginosa ISOLATE 2 Citrobacter braakii Isolate 1 Isolate 2 Antibiotic BROOKLYNN Int BROOKLYNN Int Units ug/mL ug/mL Amikacin S S Amoxicillin/Clavulanic Acid Cefazolin Cefepime S S Ceftazidime S S Ceftriaxone Cefuroxime Ciprofloxacin S S Gentamicin S S Imipenem S S Levofloxacin S S Meropenem S S Nitrofurantoin Piperacillin S S Tetracycline S S Ticarcillin S S Tobramycin S S Trimethoprim/Sulfa S S P1 Test performed by: [employer] [facility] #: [id number] [address] [place] [address] [address] [id number] [facility] [id number] [employer] Cardroom : Ranjit Caldera MD NPI #: Exhibitions And Collections Manager : -- Continued on next page -- Patient: CALLIE Young Order: [id number] Page 3 Culture: CULTURE URINE Status: Prelim 04/02/20.0623.XMT.SENT REF 04/02/20.0723.XMT.SENT REF 04/02/20.0935.XMT.SENT REF 04/03/20.1354.XMT.SENT REF 04/03/201354. .to MAN SUAREZ via fax ID Date Data Source [id number] 03/28/2020 01:20:00 PM EDT [facility] ([facility] Name Value Range Interpretation Code Description Data Izabela rce(s) Supporting Document(s) Comprehensive [place] Laboratory test result [facility] ([facility] COMPREHENSIVE METABOLIC PANEL Sodium 136 meq/L 134-153 [facility] Chloride 101 meq/L 98-107 [facility] Potassium 4.9 meq/L 3.6-5.0 [facility] Glucose 136 mg/dL 65-110 Above high normal [facility] ([facility] BUN 37 mg/dL 7-21 Above high normal [facility] ([facility] Co2 26 meq/L 22-30 [facility] Total Protein 6.3 g/dL 6.3-8.2 [facility] ([facility] Creatinine 1.9 mg/dL 0.7-1.5 Above high normal [facility] ([facility] BUN/Creat 19 8-27 [facility] A/G Ratio 1.9 0.8-2.0 [facility] Calcium 9.0 mg/dL 8.4-10.2 [facility] ([facility] Globulin 2.2 GM/DL 2.4-3.2 Below low normal [facility] ( [facility] Albumin 4.1 g/dL 3.9-5.0 [facility] Total Bili Laboratory test result 0.2-1.3 ME [facility] ([facility] Alkaline Phos 86 U/L 38-126 [facility] Sgot/Ast 19 U/L 5-40 [facility] SGPT/Alt 17 U/L 7-56 [facility] Age 84 yrs [facility] Anion Gap 9.0 mmol/L 8.0-16.0 [facility] Afr Amer GFR 44 mL/min [facility] ([facility] Male GFR Interprentation 20-49 yrs >60 mL/min Normal 50-59 yrs >56 mL/min Normal 60-69 yrs >49 mL/min Normal 70-79yrs >42 mL/min Normal 80 and above >35 mL/min Normal Female GFR Interpretation 20-39 yrs >60 mL/min Normal 40-49 yrs >58 mL/min Normal 50-59 yrs >51 mL/min Normal 60-69 yrs >45 mL/min Normal 70-79 yrs >39 mL/min Normal 80 and above >32 mL/min Normal Non-Aa GFR 36 mL/min [facility] ID Date Data Source [id number] 03/28/2020 01:20:00 PM EDT [facility] ([facility] Name Value Range Interpretation Code Description Data Izabela rce(s) Supporting Document(s) Urinalysis Laboratory test result [facility] ([facility] URINALYSIS Source Laboratory test result [facility] ([facility] Clarity Laboratory test result [facility] ([facility] Spec [place] 1.010 1.001-1.030 [facility] ([facility] Color Laboratory test result [facility] ([facility] Glucose Laboratory test result [facility] ([facility] Bilirubin Laboratory test result [facility] ([facility] pH 6.5 5-9 [facility] Protein 100 Abnormal (applies to non-numeric res ults) [facility] ([facility] Ketone Laboratory test result [facility] ([facility] Nitrite Laboratory test result [facility] ([facility] Urobilinogen Laboratory test result [facility] ([facility] Blood 250 Abnormal (applies to non-numeric res ults) [facility] ([facility] Leuk Est 500 Abnormal (applies to non-numeric res ults) [facility] ([facility] WBC Laboratory test result Abnormal (applies to non -numeric results) [facility] ([facility] Microscopic Laboratory test result M [facility] ([facility] RBC Laboratory test result Abnormal (applies to non -numeric results) [facility] ([facility] Bacteria Laboratory test result Abnormal (applies to non -numeric results) [facility] ([facility] Epithelial Laboratory test result [facility] ID Date Data Source [id number] 03/28/2020 01:20:00 PM EDT [facility] ([facility] Name Value Range Interpretation Code Description Data Izabela rce(s) Supporting Document(s) CBC W/Automated Diff Laboratory test result [facility] ([facility] COMPLETE BLOOD COUNT WBC 4.4 10^3/uL 4.2-11.0 [facility] ([facility] Hemoglobin 11.5 g/dL 14.0-16.0 Below low normal [facility] ( [facility] RBC 3.79 10^6/uL 4.50-6.30 Below low normal [facility] ([facility] MCH 30.3 pg 27.0-34.0 [facility] MCV 92.9 fL 80.0-94.0 [facility] ([facility] Hematocrit 35.2 % 41.0-51.0 Below low normal [facility] ( [facility] RDW 12.2 % 11.5-14.8 [facility] ([facility] Platelets 188 10^3/uL 150-450 [facility] MCHC 32.7 g/dL 31.0-36.0 [facility] ([facility] Lymph 34.5 % 25.0-40.0 [facility] MPV 10.1 fL 7.4-10.4 [facility] Neut 48.6 % 37.0-80.0 [facility] [place] 10.6 % 3.0-8.0 Above high normal [facility] Baso 0.9 % 0.0-2.0 [facility] Eos 5.2 % 0.0-7.0 [facility] %NRBC 0.0 % 0.0-0.0 [facility] #Neut 2.16 10^3/uL 2.00-6.90 [facility] %Ig 0.2 % 0.0-0.0 Above high normal [facility] #Lymph 1.53 10^3/uL 0.60-3.40 [facility] #Eos 0.23 10^3/uL 0.00-0.70 [facility] #[place] 0.47 10^3/uL 0.00-0.90 [facility] #NRBC 0.00 10^3/uL 0.00-0.00 [facility] #Ig 0.01 10^3/uL 0.00-0.10 [facility] #Baso 0.04 10^3/uL 0.00-0.20 [facility] Manual Diff Laboratory test result M [facility] ([facility] RBC Morph Laboratory test result [facility] ([facility] ID Date Data Source [id number] 04/03/2020 01:54:00 PM EDT [facility] Name Value Range Interpretation Code Description Data Izabela rce(s) Supporting Document(s) CULTURE URINE [facility] _CULTURE URINE_$$[id number]$$[id number]$$[id number]$$[id number]$$[id number]$$523533$$910419$$251194$$132975$$ 049640$$031993$$993832$$983530$$701510$$416368$$208462$$229024$$763906$$652480$$ 840772$$819239$$099832$$549933$$683308$$642727$$148825$$[id number] -- Continued on next page --Patient: CALLIE NANCE F Order: [id number] Page 2Culture: CULTURE URINE Status: Final ==== -- Continued on next page --Patient: CALLIE NANCE F Order: [id number] Page 2Culture: CULTURE URINE Status: Prelim ===== -- Continued on next page --Patient: CALLIE NANCE F Order: [id number] Page 2Culture: CULTURE URINE Status: Prelim ===== -- Continued on next page --Patient: CALLIE NANCE F Order: [id number] Page 2Culture: CULTURE URINE Status: Prelim =====$$[id number]$$[id number] DATE/TIME: 04/03/2020 13:06Culture: CULTURE URINE Status: FinalIsolate 1 Pseudomonas aeruginosa Flag: A . . . . . . .5Greater than 100,000 colony forming units per mL Previous result entered on 04/02/2020 07:17 ET Gram negative rods Previous result entered on 04/01/2020 11:15 ET Gram negative rods Previous result entered on 03/31/2020 05:40 ET Gram negative rodsUrine Culture,Comprehensive: [id number] aeruginosa Flag: AIsolate 2 Citrobacter braakii Flag: A . . . . . . .150,000-100,000 colony forming units per mL Previous result entered on 04/02/2020 07:17 ET Gram negative rods25,000-50,000 colony forming units per mLCitrobacter braakii Flag: APatient: CALLIE Young Order: [id number] Page 3Culture: CULTURE URINE Status: Final ISOLATE 1 Pseudomonas aeruginosaISOLATE 2 Citrobacter braakii Isolate 1 Isolate 2Antibiotic BROOKLYNN Int BROOKLYNN IntUnits ug/mL ug/mL ----Amikacin S S Amoxicillin/Clavulanic Acid Cefazolin Cefepime S S Ceftazidime S S Ceftriaxone Cefuroxime Ciprofloxacin S S Gentamicin S S Imipenem S S Levofloxacin S S Meropenem S S Nitrofurantoin Piperacillin S S Tetracycline S S Ticarcillin S S Tobramycin S S Trimethoprim/Sulfa S S P1 Test performed by: [facility] #: [id number] [address] [id number] [facility] [id number] Director : Ranjit Caldera MD NPI #:Exhibitions And Collections Manager : -- Continued on next page --Patient: CALLIE Young Order: [id number] Page 3Culture: CULTURE URINE Status: Prelim ===== 04/02/20.0623.XMT.SENT REF 04/02/20.0723.XMT.SENT REF 04/02/20.0935.XMT.SENT REF 04/03/20.1354.XMT.SENT REF 04/03/20.1354. .to MAN PATTRAFAEL via fax ID Date Data Source [id number] 03/28/2020 02:02:00 PM EDT [facility] Name Value Range Interpretation Code Description Data Izabela rce(s) Supporting Document(s) COMPREHENSIVE METABOLIC PANEL [facility] COMPREHENSIVE METABOLIC PANEL Sodium [Moles/volume] in Serum or Plasma 136 mEq/L 134 - 153 [facility] Potassium [Moles/volume] in Serum or Plasma 4.9 mEq/L 3.6 - 5.0 [facility] Chloride [Moles/volume] in Serum or Plasma 101 mEq/L 98 - 107 [facility] Carbon dioxide, total [Moles/volume] in Serum or Plasma 26 MEQ/L 22 - 30 [facility] Glucose [Mass/volume] in Serum or Plasma 136 MG/DL 65 - 110 H [facility] BUN 37 MG/DL 7 - 21 H [facility] Creatinine [Mass/volume] in Serum or Plasma 1.9 MG/DL 0.7 - 1.5 H [facility] BUN/CREAT 19 8 - 27 [facility] Protein [Mass/volume] in Serum or Plasma 6.3 G/DL 6.3 - 8.2 [facility] Albumin [Mass/volume] in Serum or Plasma 4.1 G/DL 3.9 - 5.0 [facility] Globulin [Mass/volume] in Serum by calculation 2.2 GM/DL 2.4 - 3.2 L [facility] A/G RATIO 1.9 0.8 - 2.0 [facility] Calcium [Mass/volume] in Serum or Plasma 9.0 MG/DL 8.4 - 10.2 [facility] Bilirubin.total [Mass/volume] in Serum or Plasma <0.7 MG/DL 0.2 - 1.3 [facility] Alkaline phosphatase [Enzymatic activity/volume] in Serum or Plasma 86 U/L 38 - 126 [facility] Aspartate aminotransferase [Enzymatic activity/volume] in Serum or Plasma 19 U/L 5 - 40 [facility] Alanine aminotransferase [Enzymatic activity/volume] in Seru m or Plasma 17 U/L 7 - 56 [facility] Anion gap 3 in Serum or Plasma 9.0 mmol/L 8.0 - 16.0 [facility] AGE 84 yrs [facility] NON-AA GFR 36 mL/min [facility] AFR AMER GFR 44 mL/min [facility] Male GFR In terprentation 20-49 yrs >60 mL/min Normal 50-59 yrs >56 mL/min Normal 60-69 yrs >49 mL/min Normal 70-79yrs >42 mL/min Normal 80 and above >35 mL/min Normal Female GFR Interpretation 20-39 yrs >60 mL/min Normal 40-49 yrs >58 mL/min Normal 50-59 yrs >51 mL/min Normal 60-69 yrs >45 mL/min Normal 70-79 yrs >39 mL/min Normal 80 and above >32 mL/min Normal ID Date Data Source [id number] 03/28/2020 01:58:00 PM EDT [facility] Name Value Range Interpretation Code Description Data Izabela rce(s) Supporting Document(s) URINALYSIS [facility] URINALYSIS SOURCE R [facility] COLOR yellow NORMAL: Yellow [facility] CLARITY hazy NORMAL: Clear [facility] Specific gravity of Urine by Test strip 1.010 1.001 - 1.030 [facility] pH 6.5 5 - 9 [facility] Glucose [Mass/volume] in Urine by Test strip NORM NORMAL: Negat asuncion [facility] Bilirubin.total [Presence] in Urine by Test strip NEG NORMAL: Negative [facility] Ketones [Presence] in Urine by Test strip NEG NORMAL: Negative [facility] Protein [Mass/volume] in Urine by Test strip 100 NORMAL: Negat asuncion [facility] Nitrite [Presence] in Urine by Test strip NEG NORMAL: Negative [facility] BLOOD 250 NORMAL: Negative [facility] Leukocyte esterase [Presence] in Urine by Test strip 500 MICHELLE L: Negative [facility] Urobilinogen [Mass/volume] in Urine by Test strip NOR less brittany n 1.0 mg/dL [facility] MICROSCOPIC See Below [facility] ital WBC TNTC NORMAL: NONE SEEN A [facility] Erythrocytes [#/volume] in Urine by Test strip 10 - 15 NORMAL: NON E SEEN A [facility] EPITHELIAL FEW NORMAL: NONE SEEN [facility] Bacteria [Presence] in Urine sediment by Light microscopy 2+ MOD NORMAL: NONE SEEN A [facility] ID Date Data Source [id number] 03/28/2020 01:43:00 PM EDT [facility] Name Value Range Interpretation Code Description Data Izabela rce(s) Supporting Document(s) CBC W/AUTOMATED DIFF [facility] COMPLETE BLOOD COUNT Leukocytes [#/volume] in Blood by Automated count 4.4 10^3/uL 4.2 - 1 1.0 [facility] Erythrocytes [#/volume] in Blood by Automated count 3.79 10^6/uL 4. 50 - 6.30 L [facility] Hemoglobin [Mass/volume] in Blood 11.5 g/dL 14.0 - 16.0 L [facility] Hematocrit [Volume Fraction] of Blood by Automated count 35.2 % 4 1.0 - 51.0 L [facility] Erythrocyte mean corpuscular volume [Entitic volume] by Auto mated count 92.9 fL 80.0 - 94.0 [facility] Erythrocyte mean corpuscular hemoglobin [Entitic mass] by Automated count 30.3 pg 27.0 - 34.0 [facility] Erythrocyte mean corpuscular hemoglobin concentration [Mass/volume] by Automated count 32.7 g/dL 31.0 - 36.0 [facility] Erythrocyte distribution width [Ratio] by Automated count 12.2 % 11.5 - 14.8 [facility] Platelets [#/volume] in Blood by Automated count 188 10^3/uL 150 - 45 0 [facility] Platelet mean volume [Entitic volume] in Blood by Automated count 10.1 fL 7.4 - 10.4 [facility] Neutrophils/100 leukocytes in Blood by Automated count 48.6 % 37. 0 - 80.0 [facility] Lymphocytes/100 leukocytes in Blood by Manual count 34.5 % 25.0 - 40.0 [facility] Monocytes/100 leukocytes in Blood by Automated count 10.6 % 3.0 - 8.0 H [facility] Eosinophils/100 leukocytes in Blood by Automated count 5.2 % 0.0 - 7.0 [facility] Basophils/100 leukocytes in Blood by Automated count 0.9 % 0.0 - 2.0 [facility] %IG 0.2 % 0.0 - 0.0 [facility] %NRBC 0.0 % 0.0 - 0.0 [facility] Neutrophils [#/volume] in Blood by Automated count 2.16 10^3/uL 2.00 - 6.90 [facility] Lymphocytes [#/volume] in Blood by Automated count 1.53 10^3/uL 0.60 - 3.40 [facility] Monocytes [#/volume] in Blood by Automated count 0.47 10^3/uL 0.00 - 0.90 [facility] Eosinophils [#/volume] in Blood by Automated count 0.23 10^3/uL 0.00 - 0.70 [facility] Basophils [#/volume] in Blood by Automated count 0.04 10^3/uL 0.00 - 0.20 [facility] #IG 0.01 10^3/uL 0.00 - 0.10 [facility] #NRBC 0.00 10^3/uL 0.00 - 0.00 [facility] MANUAL DIFF NOT INDICATED [facility] RBC MORPH NOT INDICATED [facility] Procedure Social History Code Duration Value Status Description Data Source(s ) Smoking 01/02/2021 12:00:00 AM EDT Patient has never smoked co mpleted Patient has never smoked [facility] ([facility] Smoking 12/25/2020 12:00:00 AM EDT Never Smoked Cigars complet ed Never Smoked Cigars [facility] ([facility]) Alcohol intake 06/14/2020 12:00:00 AM EST Current drinker of al cohol (finding) completed Current drinker of alcohol (finding) [facility] Tobacco use and exposure 06/14/2020 12:00:00 AM EST Never used co mpleted Never used [facility] Smoking 06/14/2020 12:00:00 AM EST Never smoker completed Never s [facility] Vital Signs ID Date Data Source UNK Name Value Range Interpretation Code Description Data Source(s) Systolic blood pressure 118 mm[Hg] 118 mm[Hg] M [facility] ([facility] Diastolic blood pressure 78 mm[Hg] 78 mm[Hg] [facility] ([facility] Body temperature 97.3 [degF] 97.3 [degF] [facility] ([facility] Heart rate 74 /min 74 /min [facility] ([facility] Respiratory rate 18 /min 18 /min [facility] ( [facility] Body height 62 [in_i] 62 [in_i] [facility] ([facility] 5'2" Body weight 135.00 [lb_av] 135.00 [lb_av] MEDEN T ([facility] [place] body weight 118 [lb_av] 118 [lb_av] MEDEN T ([facility] Body mass index (BMI) [Ratio] 24.7 kg/m2 24.7 k g/m2 [facility] ([facility] Oxygen saturation in Arterial blood by Pulse oximetry 99 % 99 % [facility] ([facility] ([place]), (Room Air) Oxygen saturation in Arterial blood by Pulse oximetry 99 % 99 % [facility] ([facility]) Systolic blood pressure 116 mm[Hg] 116 mm[Hg] M EDENT ([facility]) Diastolic blood pressure 70 mm[Hg] 70 mm[Hg] [facility] ([facility]) Heart rate 81 /min 81 /min [facility] ([facility]) Body temperature 97.1 [degF] 97.1 [degF] [facility] ([facility]) Systolic blood pressure 128 mm[Hg] 128 mm[Hg] M EDENT ([facility]) Diastolic blood pressure 81 mm[Hg] 81 mm[Hg] [facility] ([facility]) Heart rate 76 /min 76 /min [facility] ([facility] Respiratory rate 16 /min 16 /min [facility] ( [facility] Body height 62 [in_i] 62 [in_i] [facility] ([facility] 5'2" [place] body weight 118 [lb_av] 118 [lb_av] MEDEN T ([facility] Body mass index (BMI) [Ratio] 24.9 kg/m2 24.9 k g/m2 [facility] ([facility] Oxygen saturation in Arterial blood by Pulse oximetry 96 % 96 % [facility] Body weight 136.00 [lb_av] 136.00 [lb_av] MEDEN T ([facility] Systolic blood pressure 116 mm[Hg] 116 mm[Hg] M EDENT ([facility] Diastolic blood pressure 74 mm[Hg] 74 mm[Hg] [facility] ([facility] Body temperature 97.9 [degF] 97.9 [degF] [facility] ([facility] Respiratory rate 20 /min 20 /min [facility] ( [facility]) Oxygen saturation in Arterial blood by Pulse oximetry 94 % 94 % [facility] ([facility]) Systolic blood pressure 118 mm[Hg] 118 mm[Hg] M EDENT ([facility]) Diastolic blood pressure 66 mm[Hg] 66 mm[Hg] [facility] ([facility]) Heart rate 80 /min 80 /min [facility] ([facility]) Body temperature 96.9 [degF] 96.9 [degF] [facility] ([facility]) Body weight 136.25 [lb_av] 136.25 [lb_av] MEDEN T ([facility]) Body weight 61.803 kg 61.803 kg [facility] ([facility]) Systolic blood pressure 110 mm[Hg] 110 mm[Hg] M EDENT ([facility] Diastolic blood pressure 52 mm[Hg] 52 mm[Hg] [facility] ([facility] Body temperature 97.1 [degF] 97.1 [degF] [facility] ([facility] Heart rate 90 /min 90 /min [facility] ([facility] Respiratory rate 18 /min 18 /min [facility] ( [facility] Body height 62 [in_i] 62 [in_i] MED[facility] ([facility] 5'2" Body weight 136.00 [lb_av] 136.00 [lb_av] MEDEN T ([facility] [place] body weight 118 [lb_av] 118 [lb_av] MEDEN T ([facility] Body mass index (BMI) [Ratio] 24.9 kg/m2 24.9 k g/m2 [facility] ([facility] Oxygen saturation in Arterial blood by Pulse oximetry 96 % 96 % [facility] ([facility] Body height 62 [in_i] 62 [in_i] [facility] ([facility] 5'2" Body weight 139.00 [lb_av] 139.00 [lb_av] MEDEN T ([facility] Systolic blood pressure 112 mm[Hg] 112 mm[Hg] M EDENT ([facility] Diastolic blood pressure 72 mm[Hg] 72 mm[Hg] [facility] Heart rate 72 /min 72 /min [facility] Body mass index (BMI) [Ratio] 25.4 kg/m2 25.4 k g/m2 [facility] ([facility] Systolic blood pressure 120 mm[Hg] 120 mm[Hg] M EDENT ([facility] Diastolic blood pressure 70 mm[Hg] 70 mm[Hg] MED[facility] ([facility] Body temperature 97.7 [degF] 97.7 [degF] [facility] ([facility] Body height 62 [in_i] 62 [in_i] MED[facility] ([facility] 5'2" Body weight 135.00 [lb_av] 135.00 [lb_av] MEDEN T ([facility] [place] body weight 118 [lb_av] 118 [lb_av] MEDEN T ([facility] Body mass index (BMI) [Ratio] 24.7 kg/m2 24.7 k g/m2 MED[facility] ([facility] Respiratory rate 16 /min 16 /min MED[facility] ( [facility] Heart rate 73 /min 73 /min MED[facility] ([facility] Oxygen saturation in Arterial blood by Pulse oximetry 96 % 96 % MED[facility] ([facility] Systolic blood pressure 112 mm[Hg] 112 mm[Hg] M EDENT ([facility]) Diastolic blood pressure 62 mm[Hg] 62 mm[Hg] [facility] ([facility]) Heart rate 101 /min 101 /min [facility] ([facility]) Respiratory rate 20 /min 20 /min MED[facility] ( [facility]) Oxygen saturation in Arterial blood by Pulse oximetry 94 % 94 % [facility] ([facility]) Systolic blood pressure 126 mm[Hg] 126 mm[Hg] M EDENT ([facility] Diastolic blood pressure 70 mm[Hg] 70 mm[Hg] [facility] ([facility] Body temperature 98.1 [degF] 98.1 [degF] [facility] ([facility] Heart rate 78 /min 78 /min [facility] ([facility] Respiratory rate 16 /min 16 /min [facility] ( [facility] Body height 62 [in_i] 62 [in_i] MED[facility] ([facility] 5'2" Body weight 139.00 [lb_av] 139.00 [lb_av] MEDEN T ([facility] [place] body weight 118 [lb_av] 118 [lb_av] MEDEN T ([facility] Body mass index (BMI) [Ratio] 25.4 kg/m2 25.4 k g/m2 [facility] ([facility] Oxygen saturation in Arterial blood by Pulse oximetry 96 % 96 % [facility] ([facility] Systolic blood pressure 110 mm[Hg] 110 mm[Hg] M EDENT ([facility] Diastolic blood pressure 58 mm[Hg] 58 mm[Hg] [facility] ([facility] Body temperature 98.0 [degF] 98.0 [degF] [facility] ([facility] Heart rate 54 /min 54 /min [facility] ([facility] Respiratory rate 16 /min 16 /min [facility] ( [facility] Body height 62 [in_i] 62 [in_i] [facility] ([facility] 5'2" Body weight 133.00 [lb_av] 133.00 [lb_av] MEDEN T ([facility] [place] body weight 118 [lb_av] 118 [lb_av] MEDEN T ([facility] Body mass index (BMI) [Ratio] 24.3 kg/m2 24.3 k g/m2 [facility] ([facility] Oxygen saturation in Arterial blood by Pulse oximetry 99 % 99 % [facility] ([facility] Heart rate 90 /min 90 /min [facility] ([facility] Respiratory rate 18 /min 18 /min MED[facility] ( [facility] Body height 62 [in_i] 62 [in_i] MED[facility] ([facility] 5'2" Body mass index (BMI) [Ratio] 20.8 kg/m2 20.8 k g/m2 [facility] ([facility] Body weight 114.00 [lb_av] 114.00 [lb_av] MEDEN T ([facility] [place] body weight 118 [lb_av] 118 [lb_av] MEDEN T ([facility] Oxygen saturation in Arterial blood by Pulse oximetry 97 % 97 % [facility] ([facility] Systolic blood pressure 110 mm[Hg] 110 mm[Hg] M EDENT ([facility] Diastolic blood pressure 80 mm[Hg] 80 mm[Hg] [facility] ([facility] Body temperature 97.6 [degF] 97.6 [degF] [facility] ([facility] Systolic blood pressure 129 mm[Hg] 129 mm[Hg] M EDENT ([facility]) Diastolic blood pressure 75 mm[Hg] 75 mm[Hg] [facility] ([facility]) Heart rate 90 /min 90 /min [facility] ([facility]) Body temperature 97.3 [degF] 97.3 [degF] [facility] ([facility]) [facility] rate 14 /min 14 [facility] Oxygen saturation in Arterial blood by Pulse oximetry 98 % 98 % [facility] ([facility]) Body weight 128.00 [lb_av] 128.00 [lb_av] MEDEN T ([facility]) Body weight 58.061 kg 58.061 kg [facility] ([facility]) Body temperature 97.5 [degF] 97.5 [degF] [facility] ([facility]) Respiratory rate 16 /min 16 /min [facility] ( [facility]) Oxygen saturation in Arterial blood by Pulse oximetry 95 % 95 % [facility] ([facility]) Systolic blood pressure 172 mm[Hg] 172 mm[Hg] M EDENT ([facility]) Heart rate 88 /min 88 /min [facility] ([facility]) Diastolic blood pressure 93 mm[Hg] 93 mm[Hg] [facility] ([facility]) Systolic blood pressure 147 mm[Hg] 147 mm[Hg] M EDENT ([facility]) Diastolic blood pressure 80 mm[Hg] 80 mm[Hg] [facility] ([facility]) Heart rate 90 /min 90 /min [facility] ([facility]) Body temperature 97.3 [degF] 97.3 [degF] [facility] ([facility]) Respiratory rate 16 /min 16 /min [facility] ( [facility]) Oxygen saturation in Arterial blood by Pulse oximetry 94 % 94 % [facility] ([facility]) Body weight 143.00 [lb_av] 143.00 [lb_av] MEDEN T ([facility]) Body weight 64.865 kg 64.865 kg [facility] ([facility]) Systolic blood pressure 128 mm[Hg] 128 mm[Hg] M EDENT ([facility] Diastolic blood pressure 76 mm[Hg] 76 mm[Hg] [facility] ([facility] Body temperature 98.2 [degF] 98.2 [degF] [facility] ([facility] Heart rate 90 /min 90 /min [facility] ([facility] Respiratory rate 16 /min 16 /min [facility] ( [facility] Body height 62 [in_i] 62 [in_i] MED[facility] ([facility] 5'2" Body weight 148.00 [lb_av] 148.00 [lb_av] MEDEN T ([facility] [place] body weight 118 [lb_av] 118 [lb_av] MEDEN T ([facility] Body mass index (BMI) [Ratio] 27.1 kg/m2 27.1 k g/m2 [facility] ([facility] Oxygen saturation in Arterial blood by Pulse oximetry 98 % 98 % [facility] ([facility] Systolic blood pressure 140 mm[Hg] 140 mm[Hg] M EDENT ([facility]) Diastolic blood pressure 67 mm[Hg] 67 mm[Hg] [facility] ([facility]) Heart rate 77 /min 77 /min [facility] ([facility]) Respiratory rate 20 /min 20 /min [facility] ( [facility]) Oxygen saturation in Arterial blood by Pulse oximetry 96 % 96 % [facility] ([facility]) Systolic blood pressure 136 mm[Hg] 136 mm[Hg] M EDENT ([facility] Diastolic blood pressure 70 mm[Hg] 70 mm[Hg] [facility] ([facility] Body temperature 98.0 [degF] 98.0 [degF] [facility] ([facility] Heart rate 88 /min 88 /min [facility] ([facility] Respiratory rate 16 /min 16 /min [facility] ( [facility] Body height 62 [in_i] 62 [in_i] MED[facility] ([facility] 5'2" Body weight 142.00 [lb_av] 142.00 [lb_av] MEDEN T ([facility] [place] body weight 118 [lb_av] 118 [lb_av] MEDEN T ([facility] Body mass index (BMI) [Ratio] 26.0 kg/m2 26.0 k g/m2 MED[facility] ([facility] Oxygen saturation in Arterial blood by Pulse oximetry 96 % 96 % [facility] ([facility] Systolic blood pressure 123 mm[Hg] 123 mm[Hg] M EDENT ([facility]) Diastolic blood pressure 68 mm[Hg] 68 mm[Hg] MED[facility] ([facility]) Heart rate 73 /min 73 /min [facility] ([facility]) Respiratory rate 22 /min 22 /min MED[facility] ( [facility]) Oxygen saturation in Arterial blood by Pulse oximetry 95 % 95 % [facility] ([facility]) Systolic blood pressure 128 mm[Hg] 128 mm[Hg] M EDENT ([facility]) Diastolic blood pressure 78 mm[Hg] 78 mm[Hg] [facility] ([facility]) Heart rate 77 /min 77 /min [facility] ([facility]) Body temperature 97.1 [degF] 97.1 [degF] [facility] ([facility]) Respiratory rate 16 /min 16 /min [facility] ( [facility]) Oxygen saturation in Arterial blood by Pulse oximetry 96 % 96 % [facility] ([facility]) Body weight 142.00 [lb_av] 142.00 [lb_av] MEDEN T ([facility]) Body weight 64.411 kg 64.411 kg [facility] ([facility]) ID Date Data Source [id number] 04/02/2021 08:30:38 AM EDT [facility] Name Value Range Interpretation Code Description Data Source(s) WEIGHT RECORDED 135.00 pounds 135.00 pounds [facility] 60 Inches 060 Inches [facility] ID Date Data Source [id number] 02/20/2021 10:08:57 AM EDT [facility] Name Value Range Interpretation Code Description Data Source(s) WEIGHT RECORDED 125.00 pounds 125.00 pounds [facility] 60 Inches 060 Inches [facility] ID Date Data Source [id number] 11/06/2020 08:05:04 PM EDT [facility] Name Value Range Interpretation Code Description Data Source(s) WEIGHT RECORDED 139.00 pounds 139.00 pounds [facility] 65 Inches 065 Inches [facility] ID Date Data Source [id number] 08/17/2020 04:26:53 PM EST [facility] Name Value Range Interpretation Code Description Data Source(s) WEIGHT RECORDED 130.00 pounds 130.00 pounds [facility] Height 60 Inches 060 Inches [facility] ID Date Data Source [id number] 06/26/2020 04:03:32 PM [facility] Name Value Range Interpretation Code Description Data Source(s) WEIGHT RECORDED 145.5 lb 145.5 lb [facility] Body height Measured 63 in 63 in [facility] TRANSFER FROM [facility] Patient Treatment Plan of Care Planned Activity Planned Date Details Description Data Source (s) Magnesium Oxide 400 MG Oral Tablet 06/21/2020 12:00:00 AM [facility] dextrose 50 % IV solution 25 mL 06/14/2020 07:48:04 PM [facility] Glucagon 1 MG Injection 06/14/2020 05:08:00 PM [facility] Glucose 0.417 MG/MG Oral Gel 06/14/2020 05:08:00 PM [facility] Metformin hydrochloride 500 MG Oral Tablet 11/16/2019 12:00:00 AM E [facility] Lisinopril 5 MG Oral Tablet 06/02/2019 12:00:00 AM [facility]
[2021-04-29] MEDS ORDERED: DIPH2.5T14 PO (12:44)
[2021-04-29] MEDS ORDERED: TRAM50TA2 PO (12:44)
[2021-04-29] MEDS ORDERED: PANT40TA29 PO (12:44)
[2021-04-29 14:06] LABS: BASO % 0.5 % (0.0-1.0); EOS % 0.2 % (0.0-3.0); HEMATOCRIT 26.6 % (42.0-52.0); HEMOGLOBIN 8.5 g/dl (13.5-17.5); LYMPH # 0.6 10^3/uL (1.5-5.0); MEAN CORPUSCULAR HEMOGLOBIN 27.7 pg (27.0-33.0); MEAN CORPUSCULAR VOLUME 86.6 fl (80.0-96.0); MONO # 0.5 10^3/uL (0.0-0.8); MONO % 11.3 % (2.0-8.0); NEUTROPHILS % 73.5 % (36.0-66.0); PLATELET COUNT, AUTOMATED 241 10^3/uL (150-450); RED BLOOD COUNT 3.07 10^6/uL (4.30-6.10); WHITE BLOOD COUNT 4.1 10^3/uL (4.0-10.0)
[2021-04-29] MEDS ORDERED: MORPHINE 2 MG/ML 1ML VIAL (J2270) IV ONE (14:15)
[2021-04-29 14:22] LABS: INR 1.06; PARTIAL THROMBOPLASTIN TIME 29.8 SECONDS (25.9-37.0); PROTHROMBIN TIME 14.2 SECONDS (12.7-14.5)
--- OUTSIDE RECORDS SUMMARY | 2021-04-29 14:24 | CCD ---
Author Author [facility] Organization [facility] Address Unknown Phone Unavailable Care Team Providers Care Calendering Supervisor Name Role Phone ANGELLA Belcher MD Unavailable [...] Romy MS, RPA-C Unavailable Unav ailable Bartoszewski, Sihrley Romy MS, RPA-C Unavailable Unav ailable Bartoszewski, [...] Unavailable Dayne VERA MD Unavailable Unavailable OBKody ERIC MD Unavailable Unavailable OBKody ERIC FIDEL MD [...] T FIDEL MD Unavailable Unavailable OBEN, T FDIEL MD Unavailable Unavailable OBEN, T FIDEL MD [...] MARY FLOYD MD Unavailable Unavailable Bartoszewski, Shirley Romy MS, RPA-C Unavailable Unav [...] T FIDEL MD Unavailable Unavailable OBEN, T IFDEL MD Unavailable Unavailable OBEN, T FIDEL MD [...] Fish, J Eber Unavailable Unavailable Fish, J Beer Unavailable Unavailable Fish, J Eber Unavailable Unavailable [...] is protected by Article 27-F of the [facility] Public Health law. If you continue you may have access to information: Regarding HIV / AIDS; Provided by facilities licensed or operated by the [facility] Office of Mental Health; or Provided by the [facility] Office for People With Developmental Disabilities. If such information is present, then the following [facility] mandated warning applies: This information has [...] law may result in a fine or [place] health [place] sentence or both. A general authorization for the release of medical or other information is NOT sufficient authorization for further disc losure. Allergies and Adverse Reactions Type Description Substance Reaction Status Data Source(s ) No Known Environmental Allergies No Known Environmental Al lergies [facility] No Known Food Allergies No Known Food Allergies [facility] Drug allergy oxybutynin oxybutynin ITCHING, RASH [facility] [id number] [place] [address] Family History Family Member Name Family Member Gender Family Member Status Date o f Status Description Data Source(s) Unknown Unknown Problem [facility] ([facility] Aunts and uncles Encounters Encounter Providers Location Date Indications Data Source(s ) Outpatient Attender: Romy Patten MS, Marcio t: Eber Conway 04/10/2021 11:28:00 AM EDT - 04/10/2021 12:28:00 PM EDT [facility] Patient discharged. Outpatient Attender: Eber Conway [facility] 04/05/2021 10:30:0 0 AM EDT [facility] ([facility] Outpatient Attender: Romy Patten MS, Marcio t: Eber Conway 04/04/2021 04:47:00 PM EDT - 04/04/2021 05:47:00 PM EDT [facility] Outpatient Attender: FIDEL MARSHALL MDConsultant: Eber Conway 03/27/2021 12:00:00 PM EDT - 03/27/2021 02:18:00 PM EDT [facility] Patient discharged. Outpatient Attender: Romy Patten MS, Marcio t: Eber Conway 03/25/2021 08:57:00 AM EDT - 03/25/2021 09:57:00 AM EDT [facility] Patient discharged. Outpatient Attender: FIDEL MARSHALL MDConsultant: Eber Conway 03/19/2021 02:00:00 PM EDT - 03/19/2021 02:00:00 PM EDT [facility] Outpatient Attender: Romy Patten MS, RPAMisael pascal 03/19/2021 02:00:00 PM EDT [facility] ([facility] Outpatient Attender: FIDEL MARSHALL MDConsultant: Eber Man 02/20/2021 10:08:00 AM EDT - 02/20/2021 10:08:00 AM EDT [facility] Outpatient Attender: FIDEL MARSHALL MD [facility] 02/13/2021 03:15:0 0 PM EDT [facility] ([facility]) Outpatient Attender: FIDEL MARSHALL MDConsultant: Eber Conway 02/13/2021 02:50:00 PM EDT - 02/13/2021 02:50:00 PM EDT [facility] Outpatient Attender: FIDEL MARSHALL MDConsultant: Eber Conway 01/18/2021 07:45:00 AM EDT - 01/18/2021 11:45:00 AM EDT [facility] Patient discharged. Outpatient Attender: Romy Patten MS, RPA-CConsnathan t: Eber Conway 01/14/2021 11:29:00 AM EDT - 01/14/2021 12:29:00 PM EDT [facility] Patient discharged. Outpatient Attender: Eber Conway [facility] 01/02/2021 01:45:0 0 PM EDT [facility] ([facility] Outpatient Attender: FIDEL MARSHALL MDConsultant: Eber Conway 12/25/2020 01:43:00 PM EDT - 12/25/2020 01:43:00 PM EDT [facility] Outpatient Attender: KELLEE ORANTES [facility] 11/2020 03:30:00 PM EDT [facility] ([facility] Outpatient Attender: Eber Man [facility] 11/30/2020 01:30:0 0 PM EDT [facility] ([facility] Outpatient Attender: KELLEE ORANTES [facility] 06/2020 03:30:00 PM EDT [facility] ([facility] Outpatient Attender: FIDEL MARSHALL MDConsultant: Eber Conway 10/19/2020 07:30:00 AM EDT - 10/19/2020 10:18:00 AM EDT [facility] Patient discharged. Outpatient Attender: Romy Patten MS, RPA-CConsultan t: Eber Conway 10/15/2020 10:04:00 AM EDT - 10/15/2020 11:04:00 AM EDT [facility] Patient discharged. Outpatient Attender: Eber Conway [facility] 10/03/2020 02:00:0 0 PM EDT [facility] ([facility] Outpatient Attender: FIDEL MARSHALL MDConsultant: Eber Conway 10/03/2020 01:37:00 PM EDT - 10/03/2020 01:37:00 PM EDT [facility] 01:20:0 0 PM EST [facility] ([facility] Outpatient Attender: FIDEL MARSHALL MDConsultant: Eber Conway 07/27/2020 07:15:00 AM EST - 07/27/2020 10:10:00 AM EST [facility] Patient discharged. Outpatient Attender: Romy Patten MS, RPA-CConsultan t: Eber Conway 07/23/2020 12:08:00 PM EST - 07/23/2020 01:08:00 PM EST [facility] Patient discharged. [facility]06/2020 01:00:0 0 PM EST [facility] ([facility] Outpatient Attender: [facility] 07/02/2020 12:15:0 0 PM EST [facility] ([facility] Outpatient Attender: FIDEL MARSHALL MDConsultant: Eber Conway 06/26/2020 01:41:00 PM EST - 06/26/2020 01:41:00 PM EST [facility] Outpatient Attender: FIDEL MARSHALL MD [facility] 06/26/2020 12:30:0 0 PM EST [facility] ([facility]) Inpatient Attender: LUISITO CRAMER MDA ttender: Nancy Brooks MDAttender: TIFFANY Belcher MDAdmitter: TIFFANY Belcher MDReferrer: TIFFANY Belcher MDConsultant: Narayan Clifton JrConsultant: DEEPALI SERRANO MD [id number] 06/14/2020 12:00 :00 AM EST - 06/20/2020 06:16:00 PM EST Unspecified hydronephrosis [facility] Unspecified hydronephrosis Patient discharged. Outpatient Attender: Nancy Brooks MDReferrer: Ruchi Brooks MD 06/14/2020 12:00:00 AM [facility] Outpatient Attender: YASH FLOYD MD Referrer: YASH FLOYD MDConsultant: Eber Conway 05/30/2020 01:37:00 PM EST - 05/30/2020 01:47:00 PM [facility] Patient discharged. Outpatient Attender: FIDELSIMONE MARSHALL MDConsultant: Eber Conway 05/23/2020 08:48:00 AM EST - 05/23/2020 08:48:00 AM [facility] Outpatient Attender: FIDEL MARSHALL MDConsultant: Eber Conway 05/22/2020 01:52:00 PM EST - 05/22/2020 01:52:00 PM EST [facility] Outpatient Attender: JAYNE SOTOMAYOR DPMConsultant: Eber Browning h 05/22/2020 01:05:00 PM EST - 05/22/2020 01:05:00 PM [facility] Outpatient Attender: Romy Patten MS, RPA-CConsnathan t: Eber Conway 05/21/2020 10:23:30 AM EST - 05/28/2020 10:18:00 AM [facility] Patient discharged. Outpatient Attender: Romy Patten MS, RPA-CConsnahtan t: Eber Conway 05/18/2020 05:40:00 PM EST - 05/18/2020 06:40:00 PM [facility] Outpatient Attender: Eber Mna [facility] 05/02/2020 01:40:0 0 PM EST [facility] ([facility] Outpatient Attender: FIDEL MARSHALL MDConsultant: Eber Conway 04/25/2020 02:15:00 PM EST - 04/25/2020 02:15:00 PM [facility] Outpatient Attender: FIDEL MARSHALL MDConsultant: Eber Conway 04/04/2020 08:13:00 AM EDT - 04/04/2020 09:13:00 AM EDT [facility] Patient discharged. Outpatient Attender: Eber Conway [facility] 03/28/2020 02:00:0 0 PM EDT [facility] ([facility] Emergency Attender: EDGAR VERA MDConsultant: Eber Tierney 03/28/2020 12:54:00 PM EDT - 03/28/2020 01:57:00 PM EDT [facility] Patient discharged. Outpatient Attender: FIDEL MARSHALL MD [facility] 03/27/2020 02:30:0 0 PM EDT [facility] ([facility]) Outpatient Attender: FIDEL GEORGESJEANETH MDConsultant: Eber Conway 03/27/2020 02:19:00 PM EDT - 03/27/2020 02:19:00 PM EDT [facility] Outpatient Attender: Romy Perkins i, MS, RPA-CAttender: FIDEL MARSHALL MDConsultant: Eber Conway 02/29/2020 11:04:00 AM EDT - 02/29/2020 11:04:00 AM EDT [facility] Outpatient Attender: Romy Perkins i, MS, RPA-CAttender: FIDEL MARSHALL MDConsultant: Eber Conwya 02/14/2020 01:03:00 PM EDT - 02/14/2020 01:03:00 PM EDT [facility] Outpatient Attender: FIDEL MARSHALL MDConsultant: Eber Conway 01/31/2020 01:01:00 PM EDT - 01/31/2020 01:01:00 PM EDT [facility] Outpatient Attender: FIDEL MARSHALL MDConsultant: Eber Conway 10/19/2019 06:25:05 PM EDT [facility] Immunizations Vaccine Date Status Description Data Source(s) New in 2012. IIV4 03/26/2021 04:12:00 PM EDT completed [facility] ([facility] COVID-19 VACCINE Pfizer 11/30/2020 12:00:00 AM EDT completed [facility] Vaccine Series Complete: YESThis Data wa s Submitted to [facility] Via [employer]. COVID-19 VACC, MRNA(PFIZER)/PF 11/30/2020 12:00:00 AM EDT completed [facility] COVID-19 VACC, MRNA(PFIZER)/PF 11/09/2020 12:00:00 AM EDT completed [facility] COVID-19 VACCINE Pfizer 11/09/2020 12:00:00 AM EDT completed NYIS Vaccine Series Complete: NOThis Data was Submitted to [facility] Via [employer]. Medications Medication Brand Name Start Date Product [...] 12:00: 00 AM EDT ORAL active [facility] ([facility]) 50 mg 01/22/2021 12:00:00 AM EDT tablet [...] 12:00:0 0 AM EDT ORAL completed [facility] ([facility] Cephalexin 500 MG Oral [...] Prednisone 12/27/2020 12:00:00 AM EDT completed [facility] ([facility] 20 mg 12/27/2020 12:00:00 AM EDT tablet 7 TAKE ONE TABLET BY MOUTH EVERY DAY FOR 7 DAYS - TAKE WITH FOOD TAKE ONE TABLET BY MOUTH EVERY DAY FOR 7 DAYS - TAKE WITH FOOD SOLD: 01/02/2021 [facility] Prednisone 20 MG Oral Tablet Prednisone 12/26/2020 12:00:00 AM EDT ORAL completed [facility] ([facility] 50 mg 12/07/2020 12:00:00 AM EDT tablet 90 TAKE ONE TABLET BY MOUTH THREE TIMES A DAY MAXIMUM DAILY DOSE = 3 TAKE ONE TABLET BY MOUTH THREE TIMES A D AY MAXIMUM DAILY DOSE = 3 SOLD: 12/09/2020 [facility] Levofloxacin 250 MG Oral Tablet Levofloxacin 11/30/2020 12:00:00 AM E DT ORAL completed [facility] ([facility] 250 mg 11/30/2020 12:00:00 [...] 12:00:00 AM E DT ORAL active [facility] ([facility] pantoprazole 40 MG Delayed [...] 12:00:00 AM EDT ORAL active M EDENT ([facility] 25 mg 10/02/2020 12:00:00 AM [...] MOUTH THREE TIMES A DAY SOLD: 08/30/2020 [facility] Famotidine 40 MG Oral Tablet FAMOTIDINE 08/01/2020 12:00:00 AM EST tab let 90 TAKE ONE TABLET BY MOUTH EVERY DAY TAKE ONE TABLET BY MOUTH EVERY DAY SOLD: 08/08/2020 [facility] Famotidine 40 MG Oral Tablet [Pepcid] Pepcid 08/01/2020 12:00:00 AM EST ORAL completed [facility] ([facility] 50 mg 07/26/2020 12:00:00 [...] Take 1 t ablet by mouth daily [facility] Magnesium Oxide 400 MG Oral Tablet Magnesium Oxide (MA G-OX) tablet 400 mg Magnesium Oxide (MAG-OX) tablet 400 mg 06/20/2020 10:00:00 AM EST 4 00 mg Oral active 400 mg, Oral, D aily Standard, First dose on Thu06/20/20 at 1000, For 30 days [facility] Medication administered onsite POLYETHYLENE GLYCOL 3350 [...] to p otential increased risk for aspiration.
[facility] Medication administered onsite 400 mg (241.3 mg magnesium) 06/20/2020 12:00:00 AM EST table t 30 TAKE ONE TABLET BY MOUTH EVERY DAY TAKE ONE TABLET BY MOUTH EVERY DAY SOLD: 06/20/2020 [facility] heparin (porcine) 5000 UNIT/ML injection 5,000 Units [id number] 06/19/2020 05:00:00 PM EST 5000 U Subcutaneous active 5,000 Units, Subcutaneous, Three Times Daily Standard, First dose on Thu06/19/20 at 1700, For 30 days [facility] Medication administered onsite sennosides, SNF 8.6 MG Oral Tablet senna tablet 2 tablet sen na tablet 2 tablet 06/19/2020 12:30:00 PM EST 2 {tbl} Oral active 2 tablet, Oral, Nightly, First dose on Thu06/19/20 at 1230, For 30 days [facility] Medication administered onsite POLYETHYLENE GLYCOL 3350 [...] due to potential increased risk for aspiration.
[facility] Medication administered onsite NaCl infusion 0.9 % 5088-4434-36 06/18/2020 09:45:00 PM EST Intravenous aborted at 75 mL/hr, Intrave nous, Continuous, Starting Thu06/18/20 at 2145, For 30 days [facility] Medication administered onsite Sodium Bicarbonate 650 MG Oral Tablet sodium bicarbona te tablet 1,300 mg sodium bicarbonate tablet 1,300 mg 06/18/2020 09:00:00 PM EST 1300 mg Oral active 1,300 mg, Oral, 2 Ti mes Daily, First dose (after last modification) on Thu06/18/20 at 2100, For 30 days [facility] Medication administered onsite dextrose 5 % and sodium chloride 0.45 % infusion [id number] 0 06/18/2020 12:15:00 PM EST Intravenous aborted at 100 mL/hr, Intravenous, Continuous, Starting Thu06/18/20 at 1215, For 1 day [facility] Medication administered onsite Hydroxyzine Hydrochloride 25 MG Oral Tablet hydrOXYzin e (ATARAX) tablet 25 mg hydrOXYzine (ATARAX) tablet 25 mg 06/18/2020 12:15:00 PM EST 25 mg Oral completed 25 mg, Oral, Once, Thu06/18/20 at 1215, For 1 dose [facility] Medication administered onsite pantoprazole 40 MG Delayed Release Oral Tablet pantoprazole (PROTONIX) EC tablet 40 mg pantoprazole (PROTONIX) EC tablet 40 mg 06/18/2020 12:15:[address] 40 mg Oral active 40 mg, Ora l, Daily Standard, First dose on Thu06/18/20 at 1215, For 30 days
Do not crush or chew
[facility] Medication administered onsite Acetaminophen 325 MG [...] mg from all sources in 24 hours.
[facility] Medication administered onsite dextrose 5 % and sodium chloride 0.45 % infusion [id number] 0 06/17/2020 11:15:00 AM EST Intravenous completed at 100 mL/hr, Intravenous, Continuous, Starting 06/17/20 at 1115, For 1 day [facility] Medication administered onsite 50 ML Magnesium Sulfate 40 MG/ML Injecti on magnesium sulfate infusion 2 g/50 mL (premix) magnesium sulfate infusion 2 g/50 mL (premix) 06/17/19 05:00:00 AM EST 2 g Intravenous completed 2 g, Intravenous, Administer over 60 Minutes, Once, 06/17/20 at 0500, For 1 dose [facility] Medication administered onsite 50 ML Magnesium Sulfate 40 MG/ML Injecti on magnesium sulfate infusion 2 g/50 mL (premix) magnesium sulfate infusion 2 g/50 mL (premix) 06/17/19 01:00:00 AM EST 2 g Intravenous completed 2 g, Intravenous, Administer over 60 Minutes, Once, 06/17/20 at 0100, For 1 dose
Over 2 hours
[facility] Medication administered onsite dextrose 5 % and sodium chloride 0.45 % infusion [id number] 0 06/16/2020 03:00:00 PM EST Intravenous completed at 100 mL/hr, Intravenous, Continuous, Starting 06/16/20 at 1500, For 18 hours [facility] Medication administered onsite Sodium Bicarbonate 325 MG Oral Tablet sodium bicarbona te tablet 1,300 mg sodium bicarbonate tablet 1,300 mg 06/16/2020 09:00:00 AM EST 1300 mg Oral aborted 1,300 mg, Oral, Thre e Times Daily Standard, First dose on 06/16/20 at 0900, For 30 days [facility] Medication administered onsite dextrose 5 % and sodium chloride 0.45 % infusion 8733-8634-0 0 06/16/2020 04:00:00 AM EST Intravenous completed at 100 mL/hr, Intravenous, Continuous, Starting Thu06/16/20 at 0400, For 10 hours [facility] Medication administered onsite magnesium sulfate in dextrose 5 % infusion (premix) 1 g 0409 -[id number] 06/16/2020 01:15:00 AM EST 1 g Intravenous completed 1 g, Intravenous, Administer over 60 Minutes, Once, 06/16/20 at 0115, For 1 dose [facility] Medication administered onsite dextrose 5 % and sodium chloride 0.45 % infusion [id number] 0 06/15/2020 07:15:00 PM EST Intravenous completed at 100 mL/hr, Intravenous, Continuous, Starting Thu06/15/20 at 1915, For 10 hours [facility] Medication administered onsite dextrose 5 % and sodium chloride 0.45 % infusion 6216-1575-0 0 06/15/2020 02:45:00 PM EST Intravenous completed at 100 mL/hr, Intravenous, Continuous, Starting Thu06/15/20 at 1445, For 10 hours [facility] Medication administered onsite insulin lispro (HumaLOG) injection LOW DOSE EATING INS ULIN patients 1-8 Units [id number] 06/15/2020 01:00:00 PM EST U Subcutaneous active 1-8 Units, Subcutaneous, Three Times Daily-With Meals, First dose on Thu06/15/20 at 1300, For 30 days
Nursing MUST open the 'SQ Insulin Dosing Charts' Sidebar Report, or, the Patient Summary or Summary Report within the ED.
[facility] Medication administered onsite dextrose 5 % and sodium chloride 0.45 % infusion [id number] 0 06/15/2020 09:45:00 AM EST Intravenous aborted at 100 mL/hr, Intravenous, Continuous, Starting Thu06/15/20 at 0945, For 9 hours [facility] Medication administered onsite Lisinopril 2.5 MG Oral Tablet lisinopril (ZESTRIL) tab let 5 mg lisinopril (ZESTRIL) tablet 5 mg 06/15/2020 08:15:00 AM EST 5 mg Oral aborted 5 mg, Oral, Daily Standard, First dose on Thu06/15/20 at 0815, For 30 days [facility] Medication administered onsite fentaNYL (SUBLIMAZE) (PF) injection [id number] 06/14/2020 08:42:56 PM EST completed Code/Trauma Medicati on, Starting Quynh 06/14/20 at 2 [facility] Medication administered onsite sodium bicarbonate 8.4 % 1 mL in lidocaine (XYLOCAINE) 1 % 9 mL injection 06/14/2020 08:32:12 PM EST Infiltration complete d Infiltration, Code/Trauma Medication, Starting Quynh 06/14/20 at 2031 [facility] Medication administered onsite Piperacillin 3000 MG / tazobactam 375 MG Injection piperacillin-tazobactam (ZOSYN) IVPB 3.375 g (premix) piperacillin-tazobactam (ZOSYN) IVPB 3.3 75 g (premix) 06/14/2020 08:12:13 PM EST completed Administer over 4 Hours, Code/Trauma continuous Med, Starting Quynh 06/14/20 at 2012 [facility] Medication administered onsite dextrose 50 % [...] hypotension requiring vasopressors: No [Order 4 End] [facility] Medication administered onsite Hydralazine Hydrochloride 20 MG/ML Injec table Solution hydrALAZINE (APRESOLINE) injection 10 mg hydrALAZINE (APRESOLINE) injection 10 mg 06/14/2020 06 :20:16 PM EST 10 mg Intravenous aborted 10 m g, Intravenous, Every 6 hours PRN, Hypertension, SBP >170, Starting Quynh 06/14/20 at 1820, For 30 days
Dilute in 25-50 ml normal saline. Administer over 30 minutes.
[facility] Medication administered onsite Glucagon 1 MG Injection glucagon (human recombinant) ( GLUCAGEN) injection 1 mg glucagon (human recombinant) (GLUCAGEN) injection 1 mg 06/14/2020 05:08:00 PM EST 1 mg Intramuscular active 1 mg, Intramuscular, PRN, for glucose <55 without IV access, Starting Quynh 06/14/20 at 1708, For 30 days [facility] Medication administered onsite Glucose 0.417 MG/MG Oral Gel glucose (GLUTOSE) 40 % or al gel 15 g glucose (GLUTOSE) 40 % oral gel 15 g 06/14/2020 05:08:00 PM EST 15 g Oral active 15 g, Oral, PRN, Low blood s ugar, for gluose 55-69 mg/dl and able to take PO, Starting Quynh 06/14/20 at 1708, For 30 days [facility] Medication administered onsite 25 mg 06/12/2020 [...] Take 500 mg by m outh daily [facility] Lisinopril 5 MG Oral Tablet Lisinopril 5 MG Oral Table t (PRINIVIL,ZESTRIL) Lisinopril 5 MG Oral Tablet (PRINIVIL,ZESTRIL) 06/02/2019 12:00:00 AM EST 5 mg Oral aborted Take 5 mg by mouth daily [facility] Insurance Providers Payer name Policy type / Coverage type Policy ID Covered alliance party ID Covered alliance party's relationship to parr Policy Parr Plan Information MEDICARE A [id number] Self [id number] V22 Medicare Medicare Primary [id number] Self MEDICARE [id number] SP [id number] V22 MEDICARE [id number] SP [id number] A Medicare Medicare Primary [id number] Self [id number] A Medicare Medicare Primary [id number] Self [id number] Medicare Medicare Primary [id number] Self [id number] Medicare Medicare Primary [id number] Self [id number] [employer] Medigap Part B [id number] Self [id number] [employer] Medigap Part B [id number] Self [id number] [employer] Medigap Part B [id number] Self [id number] [employer] Medigap Part B [id number] Self [id number] [employer] Medigap Part B [id number] Self AARP U [id number] Self [id number] AARP U [id number] Self [id number] [employer] HE[employer] CARE OPTIONS -O/P [id number] 18 [id number] [employer] OPTIONS [id number] 18 [id number] MEDICARE PART A [facility] [id number] 18 [id number] [employer] C[employer] OPTIONS [id number] SP [id number] [employer] OPTIONS [id number] SP [id number] AARP O [id number] S [id number] MEDICARE C [id number] S [id number] V22 [employer] HE[employer]CARE OPTION [id number] 18 [id number] MEDICARE PART A -O/P [id number] 18 [id number] BCBS Medigap Part B [id number] Self [id number] BCBS Medigap Part B [id number] Self [id number] [facility] OPTIONS-CLINIC [id number] MEDICARE PART A-CLINIC [id number] 18 [id number] MEDICARE -O/P [id number] 18 [id number] MEDICARE PART A -O/P [id number] 18 [id number] Problems, Conditions, and Diagnoses Code Display Name Description Problem Type Effective Dates Data Source(s) C679 Malignant neoplasm of bladder, unspecifi ed Malignant neoplasm of bladder, unspecified Diagnosis 04/10/2021 11:28:00 AM [facility] K5900 Constipation, unspecified Constipation, unspecified Di agnosis 04/10/2021 11:28:00 AM [facility] R9341 Abnormal radiologic findings on diagnostic imaging of renal pelvis, ureter, or bladder Abnormal radiologic findings on diagnost ic imaging of renal pelvis, ureter, or bladder Diagnosis 04/10/2021 11:28:00 AM [facility] K769 Liver disease, unspecified Liver disease, unspecified Diagnosis 04/10/2021 11:28:00 AM [facility] N1330 Unspecified hydronephrosis Unspecified hydronephrosis Diagnosis 03/27/2021 12:00:00 PM [facility] Z1152 ENCOUNTER FOR SCREENING FOR COVID-19 ENCOUNTER F OR SCREENING FOR COVID-19 Diagnosis 03/25/2021 08:57:00 AM [facility] [id number] Encounter for preprocedural laboratory e xamination Encounter for preprocedural laboratory examination Diagnosis 03/25/2021 08:57:00 AM [facility] R310 Gross hematuria Gross hematuria Diagnosis 02/13/2021 02:5 0:00 PM [facility] N453 Epididymo-orchitis Epididymo-orchitis Diagnosis 02:50:00 PM [facility] Z800 Family history of malignant neoplasm of digestive organs Family history of malignant neoplasm of digestive organs Diagnosis 01/18/2021 07:45:00 A M [facility] I10 Essential (primary) hypertension Essential (primary) h ypertension Diagnosis 01/18/2021 07:45:00 AM EDT [facility] E119 Type 2 diabetes mellitus without complic ations Type 2 diabetes mellitus without complications Diagnosis 01/18/2021 07:45:00 AM EDT [facility] Z466 Encounter for fitting and adjustment of urinary device Encounter for fitting and adjustment of urinary device Diagnosis 01/18/2021 07:45:00 AM T [facility] C61 Malignant neoplasm of prostate Malignant neoplasm of p rostate Diagnosis 01/18/2021 07:45:00 AM EDT [facility] N130 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 with ureteropelvic junction obstruction Diagnosis 01/18/2021 07:45:00 AM ED [facility] Z7984 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 transportation 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) 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 of 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 emic drugs halfway (current) use of 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emic drugs Diagnosis 10/19/2020 07:30:00 AM [facility] [id number] halfway (current) use of opiate analge sic ocean transportation 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) use of opiate analgesic Diagnosis 10/19/2020 07:30:00 AM [facility] N3281 Overactive bladder Overactive bladder Diagnosis 12/2020 07:30:00 AM [facility] Z923 Personal history of irradiation Personal history of ir radiation Diagnosis 07/27/2020 07:15:00 AM [facility] 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 Diagnosis 07/27/2020 07:15:00 AM [facility] Z8546 Personal history of malignant neoplasm o f prostate Personal history of malignant neoplasm of prostate Diagnosis 07/27/2020 07:15:00 AM [facility] N401 Benign prostatic hyperplasia with lower urinary tract symptoms Benign prostatic hyperplasia with lower urinary tract symptoms Diagnosis 07/27/2020 07:15:00 AM [facility] R32 Unspecified urinary incontinence Unspecified urinary i ncontinence Diagnosis 07/27/2020 07:15:00 AM [facility] N13.30 Unspecified hydronephrosis Unspecified hydronephrosis Diagnosis 06/20/2020 06:38:38 PM [facility] severe bilateral hydroureter nephrosis, ARF severe bilateral hydroureter nephrosis, ARF Diagnosis 06/14/2020 03:49:00 PM [facility] R99 Ill-defined and unknown cause of mortali ty Ill-defined and unknown cause of mortality Diagnosis 05/28/2020 10:18:00 AM [facility] L84 Corns and callosities Corns and callosities Diagnosis 05/22/2020 01:05:00 PM [facility] J449 Chronic obstructive pulmonary disease, u nspecified Chronic obstructive pulmonary disease, unspecified Diagnosis 04/04/2020 08:13:00 AM EDT [facility] K449 Diaphragmatic hernia without obstruction or gangrene Diaphragmatic hernia without obstruction or gangrene Diagnosis 04/04/2020 08:13:00 AM EDT [facility] Y828 Other medical devices associated with ad verse incidents Other medical devices associated with adverse incidents Diagnosis 03/28/2020 12:54:0 0 PM EDT [facility] N3000 Acute cystitis without hematuria Acute cystitis without hematuria Diagnosis 03/28/2020 12:54:00 PM EDT [facility] [id number] Other mechanical complicatio n of other urinary catheter, initial encounter Other mechanical complication of other u rinary catheter, initial encounter Diagnosis 03/28/2020 12:54:00 PM EDT [facility] N13.30 Hydronephrosis Hydronephrosis Problem 02/20/2021 12:00: 00 AM EDT [facility] ([facility]) L84 Callosity Callosity Problem [...] Problem 10/03/2020 12:00:00 AM ED T [facility] ([facility]) [id number] Type 2 diabetes mellitus Type 2 diabetes mellitus Prob charels 05/02/2020 12:00:00 AM EST - 08/01/2020 12:00:00 AM EST [facility] ([facility] 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 Malignant ted or of urinary bladder Problem 03/27/2020 12:00:00 AM EDT [facility] ([facility]) R32 Urinary incontinence Urinary incontinence Problem 02/29/2020 12:00:00 AM EDT [facility] ([facility]) Z46.6 Encounter for fitting and adjustment of urinary device Encounter for fitting and adjustment of urinary device Problem 02/29/2020 12:00:00 AM EDT [facility] ([facility]) Surgeries/Procedures Procedure Description Date Indications Data Source(s) OFFICE OUTPATIENT VISIT 25 MINUTES 04/05/2021 12:00:00 AM EDT [facility] ([facility] OFFICE OUTPATIENT VISIT 15 MINUTES 03/19/2021 12:00:00 AM EDT [facility] ([facility]) OFFICE OUTPATIENT VISIT 15 MINUTES 02/20/2021 12:00:00 AM EDT [facility] ([facility]) OFFICE OUTPATIENT VISIT 25 MINUTES 02/13/2021 12:00:00 AM EDT [facility] ([facility]) OFFICE OUTPATIENT VISIT 10 MINUTES 02/13/2021 12:00:00 AM EDT [facility] ([facility]) OFFICE OUTPATIENT VISIT 25 MINUTES 01/02/2021 12:00:00 AM EDT [facility] ([facility] OFFICE OUTPATIENT VISIT 25 MINUTES 12/25/2020 12:00:00 AM EDT [facility] ([facility]) OFFICE OUTPATIENT VISIT 10 MINUTES 12/18/2020 12:00:00 AM EDT [facility] OFFICE OUTPATIENT VISIT 25 MINUTES 11/30/2020 12:00:00 AM EDT [facility] ([facility] OFFICE OUTPATIENT NEW 30 MINUTES 11/13/2020 12:00:00 A M EDT [facility] ([facility] OFFICE OUTPATIENT VISIT 25 MINUTES 10/03/2020 12:00:00 AM EDT [facility] ([facility]) OFFICE OUTPATIENT VISIT 25 MINUTES 10/03/2020 12:00:00 [...] 4:17 PM EST</td><td></td><td> </td> 06/20/2020 04:17:00 PM [facility] POCT GLUCOSE, DOCKED <td>POCT GLUCOSE, DOCKED</td ><td>Routine</td><td>06/20/2020 11:42 AM EST</td><td></td><td> </td> 06/20/2020 11:42:00 AM [facility] POCT GLUCOSE, DOCKED <td>POCT GLUCOSE, DOCKED</td ><td>Routine</td><td>06/20/2020 7:36 AM EST</td><td></td><td> </td> 06/20/2020 07:36:00 AM [facility] BLOOD COUNT COMPLETE AUTOMATED <td>CBC</td><td>Routine </td><td>06/20/2020 3:35 AM EST</td><td></td><td> </td> 06/20/2020 03:35:00 AM [facility] PHOSPHORUS INORGANIC <td>PHOSPHORUS LEVEL</td><td >Timed</td><td>06/20/2020 3:35 AM EST</td><td></td><td> </td> 06/20/2020 03:35:00 AM [facility] MAGNESIUM <td>MAGNESIUM LEVEL</td><td> Timed</td><td>06/20/2020 3:35 AM EST</td><td></td><td> </td> 06/20/2020 03:35:00 AM [facility] BASIC METABOLIC PANEL CALCIUM TOTAL <td>BASIC METABOLI C PANEL</td><td>Timed</td><td>06/20/2020 3:35 AM EST</td><td></td><td> </td> 06/20/2020 03:35:00 AM [facility] GLUCOSE QUANTITATIVE BLOOD XCPT REAGENT STRIP <td>POCT GLUCOSE, DOCKED</td><td>Routine</td><td>06/19/2020 9:40 PM EST</td><td></td><td> </td> 06/19/2020 09:40:00 PM [facility] BLOOD COUNT COMPLETE AUTO&AUTO DIFRNTL WBC COUNT <td>C BC AND DIFFERENTIAL</td><td>Routine</td><td>06/19/2020 8:40 PM EST</td><td></td><td> </td> 06/19/2020 08:40:00 PM [facility] PHOSPHORUS INORGANIC <td>PHOSPHORUS LEVEL</td><td >Timed</td><td>06/19/2020 5:34 PM EST</td><td></td><td> </td> 06/19/2020 05:34:00 PM [facility] MAGNESIUM <td>MAGNESIUM LEVEL</td><td> Timed</td><td>06/19/2020 5:34 PM EST</td><td></td><td> </td> 06/19/2020 05:34:00 PM [facility] BASIC METABOLIC PANEL CALCIUM TOTAL <td>BASIC METABOLI C PANEL</td><td>Timed</td><td>06/19/2020 5:34 PM EST</td><td></td><td> </td> 06/19/2020 05:34:00 PM [facility] GLUCOSE QUANTITATIVE BLOOD XCPT REAGENT STRIP <td>POCT GLUCOSE, DOCKED</td><td>Routine</td><td>06/19/2020 4:54 PM EST</td><td></td><td> </td> 06/19/2020 04:54:00 PM [facility] GLUCOSE QUANTITATIVE BLOOD XCPT REAGENT STRIP <td>POCT GLUCOSE, DOCKED</td><td>Routine</td><td>06/19/2020 11:28 AM EST</td><td></td><td> </td> 06/19/2020 11:28:00 AM [facility] CALCIUM IONIZED <td>CALCIUM, IONIZED</td><td >Routine</td><td>06/19/2020 7:58 AM EST</td><td></td><td> </td> 06/19/2020 07:58:00 AM [facility] GLUCOSE QUANTITATIVE BLOOD XCPT REAGENT STRIP <td>POCT GLUCOSE, DOCKED</td><td>Routine</td><td>06/19/2020 7:32 AM EST</td><td></td><td> </td> 06/19/2020 07:32:00 AM [facility] BLOOD COUNT COMPLETE AUTO&AUTO DIFRNTL WBC COUNT <td>C BC AND DIFFERENTIAL</td><td>Routine</td><td>06/19/2020 4:04 AM EST</td><td></td><td> </td> 06/19/2020 04:04:00 AM [facility] PHOSPHORUS INORGANIC <td>PHOSPHORUS LEVEL</td><td >Timed</td><td>06/19/2020 4:04 AM EST</td><td></td><td> </td> 06/19/2020 04:04:00 AM [facility] MAGNESIUM <td>MAGNESIUM LEVEL</td><td> Timed</td><td>06/19/2020 4:04 AM EST</td><td></td><td> </td> 06/19/2020 04:04:00 AM [facility] BASIC METABOLIC PANEL CALCIUM TOTAL <td>BASIC METABOLI C PANEL</td><td>Timed</td><td>06/19/2020 4:04 AM EST</td><td></td><td> </td> 06/19/2020 04:04:00 AM [facility] GLUCOSE QUANTITATIVE BLOOD XCPT REAGENT STRIP <td>POCT GLUCOSE, DOCKED</td><td>Routine</td><td>06/18/2020 9:30 PM EST</td><td></td><td> </td> 06/18/2020 09:30:00 PM [facility] GLUCOSE QUANTITATIVE BLOOD XCPT REAGENT STRIP <td>POCT GLUCOSE, DOCKED</td><td>Routine</td><td>06/18/2020 8:06 PM EST</td><td></td><td> </td> 06/18/2020 08:06:00 PM [facility] PHOSPHORUS INORGANIC <td>PHOSPHORUS LEVEL</td><td >Timed</td><td>06/18/2020 5:38 PM EST</td><td></td><td> </td> 06/18/2020 05:38:00 PM [facility] MAGNESIUM <td>MAGNESIUM LEVEL</td><td> Timed</td><td>06/18/2020 5:38 PM EST</td><td></td><td> </td> 06/18/2020 05:38:00 PM [facility] BASIC METABOLIC PANEL CALCIUM TOTAL <td>BASIC METABOLI C PANEL</td><td>Timed</td><td>06/18/2020 5:38 PM EST</td><td></td><td> </td> 06/18/2020 05:38:00 PM [facility] GLUCOSE QUANTITATIVE BLOOD XCPT REAGENT STRIP <td>POCT GLUCOSE, DOCKED</td><td>Routine</td><td>06/18/2020 4:33 PM EST</td><td></td><td> </td> 06/18/2020 04:33:00 PM [facility] GLUCOSE QUANTITATIVE BLOOD XCPT REAGENT STRIP <td>POCT GLUCOSE, DOCKED</td><td>Routine</td><td>06/18/2020 11:56 AM EST</td><td></td><td> </td> 06/18/2020 11:56:00 AM [facility] PHOSPHORUS INORGANIC <td>PHOSPHORUS LEVEL</td><td >Timed</td><td>06/18/2020 8:35 AM EST</td><td></td><td> </td> 06/18/2020 08:35:00 AM [facility] MAGNESIUM <td>MAGNESIUM LEVEL</td><td> Timed</td><td>06/18/2020 8:35 AM EST</td><td></td><td> </td> 06/18/2020 08:35:00 AM [facility] BASIC METABOLIC PANEL CALCIUM TOTAL <td>BASIC METABOLI C PANEL</td><td>Timed</td><td>06/18/2020 8:35 AM EST</td><td></td><td> </td> 06/18/2020 08:35:00 AM [facility] GLUCOSE QUANTITATIVE BLOOD XCPT REAGENT STRIP <td>POCT GLUCOSE, DOCKED</td><td>Routine</td><td>06/18/2020 7:44 AM EST</td><td></td><td> </td> 06/18/2020 07:44:00 AM [facility] US RETROPERITONEAL REAL TIME W/IMAGE COMPLETE <td>US R ENAL OR AORTA COMPLETE [id number]</td><td>Routine</td><td>06/18/2020 4:30 AM EST</td><td></td><td> </td> 06/18/2020 04:30:24 AM [facility] BLOOD COUNT COMPLETE AUTO&AUTO DIFRNTL WBC COUNT <td>C BC AND DIFFERENTIAL</td><td>Routine</td><td>06/18/2020 12:09 AM EST</td><td></td><td> </td> 06/18/2020 12:09:00 AM [facility] PHOSPHORUS INORGANIC <td>PHOSPHORUS LEVEL</td><td >Timed</td><td>06/18/2020 12:09 AM EST</td><td></td><td> </td> 06/18/2020 12:09:00 AM [facility] MAGNESIUM <td>MAGNESIUM LEVEL</td><td> Timed</td><td>06/18/2020 12:09 AM EST</td><td></td><td> </td> 06/18/2020 12:09:00 AM [facility] BASIC METABOLIC PANEL CALCIUM TOTAL <td>BASIC METABOLI C PANEL</td><td>Timed</td><td>06/18/2020 12:09 AM EST</td><td></td><td> </td> 06/18/2020 12:09:00 AM [facility] GLUCOSE QUANTITATIVE BLOOD XCPT REAGENT STRIP <td>POCT GLUCOSE, DOCKED</td><td>Routine</td><td>06/17/2020 9:11 PM EST</td><td></td><td> </td> 06/17/2020 09:11:00 PM [facility] PHOSPHORUS INORGANIC <td>PHOSPHORUS LEVEL</td><td >Timed</td><td>06/17/2020 4:37 PM EST</td><td></td><td> </td> 06/17/2020 04:37:00 PM [facility] MAGNESIUM <td>MAGNESIUM LEVEL</td><td> Timed</td><td>06/17/2020 4:37 PM EST</td><td></td><td> </td> 06/17/2020 04:37:00 PM [facility] BASIC METABOLIC PANEL CALCIUM TOTAL <td>BASIC METABOLI C PANEL</td><td>Timed</td><td>06/17/2020 4:37 PM EST</td><td></td><td> </td> 06/17/2020 04:37:00 PM [facility] GLUCOSE QUANTITATIVE BLOOD XCPT REAGENT STRIP <td>POCT GLUCOSE, DOCKED</td><td>Routine</td><td>06/17/2020 4:35 PM EST</td><td></td><td> </td> 06/17/2020 04:35:00 PM [facility] GLUCOSE QUANTITATIVE BLOOD XCPT REAGENT STRIP <td>POCT GLUCOSE, DOCKED</td><td>Routine</td><td>06/17/2020 11:40 AM EST</td><td></td><td> </td> 06/17/2020 11:40:00 AM [facility] GLUCOSE QUANTITATIVE BLOOD XCPT REAGENT STRIP <td>POCT GLUCOSE, DOCKED</td><td>Routine</td><td>06/17/2020 7:39 AM EST</td><td></td><td> </td> 06/17/2020 07:39:00 AM [facility] PHOSPHORUS INORGANIC <td>PHOSPHORUS LEVEL</td><td >Timed</td><td>06/17/2020 6:22 AM EST</td><td></td><td> </td> 06/17/2020 06:22:00 AM [facility] MAGNESIUM <td>MAGNESIUM LEVEL</td><td> Timed</td><td>06/17/2020 6:22 AM EST</td><td></td><td> </td> 06/17/2020 06:22:00 AM [facility] BASIC METABOLIC PANEL CALCIUM TOTAL <td>BASIC METABOLI C PANEL</td><td>Timed</td><td>06/17/2020 6:22 AM EST</td><td></td><td> </td> 06/17/2020 06:22:00 AM [facility] BLOOD COUNT COMPLETE AUTO&AUTO DIFRNTL WBC COUNT <td>C BC AND DIFFERENTIAL</td><td>Routine</td><td>06/17/2020 12:03 AM EST</td><td></td><td> </td> 06/17/2020 12:03:00 AM [facility] PHOSPHORUS INORGANIC <td>PHOSPHORUS LEVEL</td><td >Timed</td><td>06/17/2020 12:03 AM EST</td><td></td><td> </td> 06/17/2020 12:03:00 AM [facility] MAGNESIUM <td>MAGNESIUM LEVEL</td><td> Timed</td><td>06/17/2020 12:03 AM EST</td><td></td><td> </td> 06/17/2020 12:03:00 AM [facility] BASIC METABOLIC PANEL CALCIUM TOTAL <td>BASIC METABOLI C PANEL</td><td>Timed</td><td>06/17/2020 12:03 AM EST</td><td></td><td> </td> 06/17/2020 12:03:00 AM [facility] GLUCOSE QUANTITATIVE BLOOD XCPT REAGENT STRIP <td>POCT GLUCOSE, DOCKED</td><td>Routine</td><td>06/16/2020 9:09 PM EST</td><td></td><td> </td> 06/16/2020 09:09:00 PM [facility] PHOSPHORUS INORGANIC <td>PHOSPHORUS LEVEL</td><td >Timed</td><td>06/16/2020 6:25 PM EST</td><td></td><td> </td> 06/16/2020 06:25:00 PM [facility] MAGNESIUM <td>MAGNESIUM LEVEL</td><td> Timed</td><td>06/16/2020 6:25 PM EST</td><td></td><td> </td> 06/16/2020 06:25:00 PM [facility] BASIC METABOLIC PANEL CALCIUM TOTAL <td>BASIC METABOLI C PANEL</td><td>Timed</td><td>06/16/2020 6:25 PM EST</td><td></td><td> </td> 06/16/2020 06:25:00 PM [facility] GLUCOSE QUANTITATIVE BLOOD XCPT REAGENT STRIP <td>POCT GLUCOSE, DOCKED</td><td>Routine</td><td>06/16/2020 4:35 PM EST</td><td></td><td> </td> 06/16/2020 04:35:00 PM [facility] GLUCOSE QUANTITATIVE BLOOD XCPT REAGENT STRIP <td>POCT GLUCOSE, DOCKED</td><td>Routine</td><td>06/16/2020 12:51 PM EST</td><td></td><td> </td> 06/16/2020 12:51:00 PM [facility] PHOSPHORUS INORGANIC <td>PHOSPHORUS LEVEL</td><td >Timed</td><td>06/16/2020 12:01 PM EST</td><td></td><td> </td> 06/16/2020 12:01:00 PM [facility] MAGNESIUM <td>MAGNESIUM LEVEL</td><td> Timed</td><td>06/16/2020 12:01 PM EST</td><td></td><td> </td> 06/16/2020 12:01:00 PM [facility] BASIC METABOLIC PANEL CALCIUM TOTAL <td>BASIC METABOLI C PANEL</td><td>Timed</td><td>06/16/2020 12:01 PM EST</td><td></td><td> </td> 06/16/2020 12:01:00 PM [facility] ECHO TTHRC R-T 2D W/WOM-MODE COMPL SPEC&COLR DOP <td>E CHOCARDIOGRAM 2D COMPLETE</td><td>STAT</td><td>06/16/2020 8:43 AM EST</td><td></td><td> </td> 06/16/2020 08:43:07 AM [facility] GLUCOSE QUANTITATIVE BLOOD XCPT REAGENT STRIP <td>POCT GLUCOSE, DOCKED</td><td>Routine</td><td>06/16/2020 7:32 AM EST</td><td></td><td> </td> 06/16/2020 07:32:00 AM [facility] BLOOD COUNT COMPLETE AUTO&AUTO DIFRNTL WBC COUNT <td>C BC AND DIFFERENTIAL</td><td>Routine</td><td>06/16/2020 5:59 AM EST</td><td></td><td> </td> 06/16/2020 05:59:00 AM [facility] PHOSPHORUS INORGANIC <td>PHOSPHORUS LEVEL</td><td >Timed</td><td>06/16/2020 5:59 AM EST</td><td></td><td> </td> 06/16/2020 05:59:00 AM [facility] MAGNESIUM <td>MAGNESIUM LEVEL</td><td> Timed</td><td>06/16/2020 5:59 AM EST</td><td></td><td> </td> 06/16/2020 05:59:00 AM [facility] BASIC METABOLIC PANEL CALCIUM TOTAL <td>BASIC METABOLI C PANEL</td><td>Timed</td><td>06/16/2020 5:59 AM EST</td><td></td><td> </td> 06/16/2020 05:59:00 AM [facility] PHOSPHORUS INORGANIC <td>PHOSPHORUS LEVEL</td><td >Timed</td><td>06/16/2020 12:17 AM EST</td><td></td><td> </td> 06/16/2020 12:17:00 AM [facility] MAGNESIUM <td>MAGNESIUM LEVEL</td><td> Timed</td><td>06/16/2020 12:17 AM EST</td><td></td><td> </td> 06/16/2020 12:17:00 AM [facility] BASIC METABOLIC PANEL CALCIUM TOTAL <td>BASIC METABOLI C PANEL</td><td>Timed</td><td>06/16/2020 12:17 AM EST</td><td></td><td> </td> 06/16/2020 12:17:00 AM [facility] GLUCOSE QUANTITATIVE BLOOD XCPT REAGENT STRIP <td>POCT GLUCOSE, DOCKED</td><td>Routine</td><td>06/15/2020 8:57 PM EST</td><td></td><td> </td> 06/15/2020 08:57:00 PM [facility] PHOSPHORUS INORGANIC <td>PHOSPHORUS LEVEL</td><td >Timed</td><td>06/15/2020 5:27 PM EST</td><td></td><td> </td> 06/15/2020 05:27:00 PM [facility] MAGNESIUM <td>MAGNESIUM LEVEL</td><td> Timed</td><td>06/15/2020 5:27 PM EST</td><td></td><td> </td> 06/15/2020 05:27:00 PM [facility] BASIC METABOLIC PANEL CALCIUM TOTAL <td>BASIC METABOLI C PANEL</td><td>Timed</td><td>06/15/2020 5:27 PM EST</td><td></td><td> </td> 06/15/2020 05:27:00 PM [facility] GLUCOSE QUANTITATIVE BLOOD XCPT REAGENT STRIP <td>POCT GLUCOSE, DOCKED</td><td>Routine</td><td>06/15/2020 4:37 PM EST</td><td></td><td> </td> 06/15/2020 04:37:00 PM [facility] GLUCOSE QUANTITATIVE BLOOD XCPT REAGENT STRIP <td>POCT GLUCOSE, DOCKED</td><td>Routine</td><td>06/15/2020 2:21 PM EST</td><td></td><td> </td> 06/15/2020 02:21:00 PM [facility] GLUCOSE QUANTITATIVE BLOOD XCPT REAGENT STRIP <td>POCT GLUCOSE, DOCKED</td><td>Routine</td><td>06/15/2020 11:41 AM EST</td><td></td><td> </td> 06/15/2020 11:41:00 AM [facility] PHOSPHORUS INORGANIC <td>PHOSPHORUS LEVEL</td><td >STAT</td><td>06/15/2020 11:29 AM EST</td><td></td><td> </td> 06/15/2020 11:29:00 AM [facility] MAGNESIUM <td>MAGNESIUM LEVEL</td><td> STAT</td><td>06/15/2020 11:29 AM EST</td><td></td><td> </td> 06/15/2020 11:29:00 AM [facility] BASIC METABOLIC PANEL CALCIUM TOTAL <td>BASIC METABOLI C PANEL</td><td>STAT</td><td>06/15/2020 11:29 AM EST</td><td></td><td> </td> 06/15/2020 11:29:00 AM [facility] GLUCOSE QUANTITATIVE BLOOD XCPT REAGENT STRIP <td>POCT GLUCOSE, DOCKED</td><td>Routine</td><td>06/15/2020 7:50 AM EST</td><td></td><td> </td> 06/15/2020 07:50:00 AM [facility] GLUCOSE QUANTITATIVE BLOOD XCPT REAGENT STRIP <td>POCT GLUCOSE, DOCKED</td><td>Routine</td><td>06/15/2020 4:13 AM EST</td><td></td><td> </td> 06/15/2020 04:13:00 AM [facility] CULTURE BCT ISOL&PRSMPTV ID ISOLATE EA URINE <td>URINE SUPRAPUBIC CUL</td><td>Routine</td><td>06/15/2020 3:20 AM EST</td><td></td><td> </td> 06/15/2020 03:20:00 AM [facility] CULTURE BCT ISOL&PRSMPTV ID ISOLATE EA URINE <td>URINE SUPRAPUBIC CUL</td><td>Routine</td><td>06/15/2020 3:20 AM EST</td><td></td><td> </td> 06/15/2020 03:20:00 AM [facility] URNLS DIP STICK/TABLET REAGENT AUTO MICROSCOPY <td>URI NALYSIS WITH MICROSCOPIC</td><td>Routine</td><td>06/15/2020 3:20 AM EST</td><td></td><td> </td> 06/15/2020 03:20:00 AM [facility] URNLS DIP STICK/TABLET REAGENT AUTO MICROSCOPY <td>URI NALYSIS WITH MICROSCOPIC</td><td>Routine</td><td>06/15/2020 3:20 AM EST</td><td></td><td> </td> 06/15/2020 03:20:00 AM [facility] FIBRIN DGRADJ PRODUCTS D-DIMER QUAL/SEMIQUAN <td>D-DIM ER, QUANTITATIVE</td><td>Routine</td><td>06/15/2020 3:20 AM EST</td><td></td><td> </td> 06/15/2020 03:20:00 AM [facility] BLOOD COUNT COMPLETE AUTO&AUTO DIFRNTL WBC COUNT <td>C BC AND DIFFERENTIAL</td><td>Routine</td><td>06/15/2020 3:20 AM EST</td><td></td><td> </td> 06/15/2020 03:20:00 AM [facility] TROPONIN QUANTITATIVE <td>TROPONIN T</td><td>Timed </td><td>06/15/2020 3:20 AM EST</td><td></td><td> </td> 06/15/2020 03:20:00 AM [facility] PHOSPHORUS INORGANIC <td>PHOSPHORUS LEVEL</td><td >Routine</td><td>06/15/2020 3:20 AM EST</td><td></td><td> </td> 06/15/2020 03:20:00 AM [facility] MAGNESIUM <td>MAGNESIUM LEVEL</td><td> Routine</td><td>06/15/2020 3:20 AM EST</td><td></td><td> </td> 06/15/2020 03:20:00 AM [facility] BASIC METABOLIC PANEL CALCIUM TOTAL <td>BASIC METABOLI C PANEL</td><td>Timed</td><td>06/15/2020 3:20 AM EST</td><td></td><td> </td> 06/15/2020 03:20:00 AM [facility] GLUCOSE QUANTITATIVE BLOOD XCPT REAGENT STRIP <td>POCT GLUCOSE, DOCKED</td><td>Routine</td><td>06/15/2020 1:32 AM EST</td><td></td><td> </td> 06/15/2020 01:32:00 AM [facility] GLUCOSE QUANTITATIVE BLOOD XCPT REAGENT STRIP <td>POCT GLUCOSE, DOCKED</td><td>Routine</td><td>06/15/2020 1:03 AM EST</td><td></td><td> </td> 06/15/2020 01:03:00 AM [facility] GLUCOSE QUANTITATIVE BLOOD XCPT REAGENT STRIP <td>POCT GLUCOSE, DOCKED</td><td>Routine</td><td>06/15/2020 12:30 AM EST</td><td></td><td> </td> 06/15/2020 12:30:00 AM [facility] GLUCOSE QUANTITATIVE BLOOD XCPT REAGENT STRIP <td>POCT GLUCOSE, DOCKED</td><td>Routine</td><td>06/15/2020 12:02 AM EST</td><td></td><td> </td> 06/15/2020 12:02:00 AM [facility] TROPONIN QUANTITATIVE <td>TROPONIN T</td><td>Timed </td><td>06/14/2020 11:48 PM EST</td><td></td><td> </td> 06/14/2020 11:48:00 PM [facility] BASIC METABOLIC PANEL CALCIUM TOTAL <td>BASIC METABOLI C PANEL</td><td>Timed</td><td>06/14/2020 11:48 PM EST</td><td></td><td> </td> 06/14/2020 11:48:00 PM [facility] GLUCOSE QUANTITATIVE BLOOD XCPT REAGENT STRIP <td>POCT GLUCOSE, DOCKED</td><td>Routine</td><td>06/14/2020 11:25 PM EST</td><td></td><td> </td> 06/14/2020 11:25:00 PM [facility] GLUCOSE QUANTITATIVE BLOOD XCPT REAGENT STRIP <td>POCT GLUCOSE, DOCKED</td><td>Routine</td><td>06/14/2020 9:59 PM EST</td><td></td><td> </td> 06/14/2020 09:59:00 PM [facility] IR NEPHROSTOMY INSERTION CHANGE <td>IR NEPHROSTOMY INS ERTION CHANGE</td><td>STAT</td><td>06/14/2020 9:01 PM EST</td><td></td><td> </td> 06/14/2020 09:01:51 PM [facility] GLUCOSE QUANTITATIVE BLOOD XCPT REAGENT STRIP <td>POCT GLUCOSE, DOCKED</td><td>Routine</td><td>06/14/2020 5:44 PM EST</td><td></td><td> </td> 06/14/2020 05:44:00 PM [facility] THROMBOPLASTIN TIME PARTIAL PLASMA/WHOLE BLOOD <td>PAR TIAL THROMBOPLASTIN TIME (PTT)</td><td>Routine</td><td>06/14/2020 5:28 PM EST</td><td></td><td> </td> 06/14/2020 05:28:00 PM [facility] PROTHROMBIN TIME <td>PROTIME INR</td><td>Rout ine</td><td>06/14/2020 5:28 PM EST</td><td></td><td> </td> 06/14/2020 05:28:00 PM [facility] BLOOD COUNT COMPLETE AUTO&AUTO DIFRNTL WBC COUNT <td>C BC AND DIFFERENTIAL</td><td>Routine</td><td>06/14/2020 5:28 PM EST</td><td></td><td> </td> 06/14/2020 05:28:00 PM [facility] TROPONIN QUANTITATIVE <td>TROPONIN T</td><td>STAT< /td><td>06/14/2020 5:28 PM EST</td><td></td><td> </td> 06/14/2020 05:28:00 PM [facility] PHOSPHORUS INORGANIC <td>PHOSPHORUS LEVEL</td><td >Routine</td><td>06/14/2020 5:28 PM EST</td><td></td><td> </td> 06/14/2020 05:28:00 PM [facility] MAGNESIUM <td>MAGNESIUM LEVEL</td><td> Routine</td><td>06/14/2020 5:28 PM EST</td><td></td><td> </td> 06/14/2020 05:28:00 PM [facility] COMPREHENSIVE METABOLIC PANEL <td>COMPREHENSIVE METABO LIC PANEL</td><td>STAT</td><td>06/14/2020 5:28 PM EST</td><td></td><td> </td> 06/14/2020 05:28:00 PM [facility] COVID-19 PCR <td>COVID-19 PCR</td><td>Rou phylicia</td><td>06/14/2020 4:32 PM EST</td><td></td><td> </td> 06/14/2020 04:32:00 PM [facility] GLUCOSE QUANTITATIVE BLOOD XCPT REAGENT STRIP <td>POCT GLUCOSE, DOCKED</td><td>Routine</td><td>06/14/2020 3:55 PM EST</td><td></td><td> </td> 06/14/2020 03:55:00 PM [facility] Insert Of Temporary Indwelling Bladder Catheter,Simple 04/25/2020 12:00:00 AM EST [facility] ([facility] Insert Of Temporary Indwelling Bladder Catheter,Simple 02/29/2020 12:00:00 AM EDT [facility] ([facility]) Results ID Date Data Source [id number] 04/10/2021 02:26:00 [place] [address] PHONE: [phone] FAX: [phone] Name .................. : CALLIE Young Acct Number.................. : [id number] ROOM. ................. : Number ................... : [id number] Stay type ............. : O/P Discharge Date......... ... : 04/10/21 Admit Date ....... .. : 04/10/21 Admit Phys .................... : JANNY Date of ....... : 1935 Family Phys ................... : MAN SUAREZ Phone .................. : [phone] Age ................................ : 85 Film# .................. .:[id number] Sex ................................. : M Unsigned transcriptions are preliminary reports and do not represent a medical or legal document CT ABD & PELV W/O ORAL W/[place] [id number] COMPLETE:04/10/21 11:49 KATIA [id number] Reason for Exam: H/O BLADDER CA , [...] stones or hydronephrosis. Page [address] [facility] [address] [place] [address] PHONE: [phone] FAX: [phone] Name .................. : CALLIE Young Acct Number.................. : [id number] ROOM. ................. : MR Number ................... : [id number] Stay type ............. : O/P Discharge Date......... ... : 04/10/21 Admit Date ......... : 04/10/21 Admit Phys .................... : JANNY Date of ....... : 1935 Family Phys ................... : [place] Phone .................. : [phone]/ Age ................................ : 85 Film# .................. .:[id number] Sex ................................. : M Unsigned transcriptions are preliminary reports and do not represent a medical or legal document CT ABD & PELV W/O ORAL W/[place] [id number] COMPLETE:04/10/21 11:49 KATIA [id number] Reason for Exam: H/O BLADDER CA , [...] evaluated for masses. Page [address] [facility] [address] [place] [address] PHONE: [phone] FAX: [phone] Name .................. : CALLIE Young Acct Number.................. : [id number] ROOM. ................. : MR Number ................... : [id number] Stay type ............. : O/P Discharge Date......... ... : 04/10/21 Admit Date ......... : 04/10/21 Admit Phys .................... : JANNY Date of ....... : 1935 Family Phys ................... : MAN SUAREZ Phone .................. : [phone] Age ................................ : 85 Film# .................. .:[id number] Sex ................................. : M Unsigned transcriptions are preliminary reports and do not represent a medical or legal document CT ABD & PELV W/[place] ORAL W/[place] [id number] COMPLETE:04/10/21 11:49 KATIA [id number] Reason for Exam: H/O BLADDER CA , [...] rce(s) Supporting Document(s) ID Date Data Source [id number] 04/05/2021 11:24:00 AM EDT [facility] ([facility] ID Date Data Source [id number] 04/05/2021 11:24:00 AM EDT [facility] ([facility] Name Value Range Interpretation Code Description Data Izabela rce(s) Supporting Document(s) Ferritin [Mass/volume] in Serum or Plasma 318 ng/mL 30-400 [facility] ([facility] ID Date Data Source [id number] 04/05/2021 11:23:00 AM EDT [facility] ([facility] Name Value Range Interpretation Code Description Data Izabela rce(s) Supporting Document(s) Erythrocyte sedimentation rate by Westergren method 60 mm/hr 0-20 Above high normal [facility] ([facility] ) ID Date Data Source [id number] 04/05/2021 11:23:00 AM EDT [facility] ([facility] Name Value Range Interpretation Code Description Data Izabela rce(s) Supporting Document(s) WBC 4.7 10E3/uL 4.1-10.9 [facility] ([facility] RBC 3.25 10E6/uL 4.20-6.30 Below low normal [facility] ([facility] HGB 8.9 g/dL 12.0-18.0 Below low normal [facility] ( [facility] HCT 28.2 % 37.0-51.0 Below low normal [facility] ( [facility] MCHC 31.6 g/dL 31.0-36.0 [facility] MCV 86.8 fL 80.0-97.0 [facility] ([facility] MCH 27.4 pg 26.0-32.0 [facility] Lym% 30.0 % 10.0-58.5 [facility] PLT 271 10E3/uL 140-440 [facility] ([facility] RDW-CV 13.3 % 11.5-14.5 [facility] MXD% 12.7 % 0.1-24.0 [facility] Lym# 1.4 10E3/uL 0.6-4.1 [facility] Neut% 57.3 % 37.0-92.0 [facility] MXD# 0.6 10E3/uL 0.0-1.8 [facility] Neut# 2.7 % 2.0-7.8 [facility] ([facility] Swati PNathalie) MPV 8.8 fL 9.0-13.0 Below low normal [facility] ( [facility] Kaleigh Vivas) Comment Laboratory test result [facility] ([facility] Kaleigh Longoria) ID Date Data Source [id number] 04/04/2021 05:53:00 PM EDT [facility] Name Value Range Interpretation Code Description Data Izabela rce(s) Supporting Document(s) BASIC METABOLIC PANEL [facility] BASIC METABOLIC PANEL Sodium [Moles/volume] in Serum or Plasma 139 mEq/L 134 - 153 [facility] Potassium [Moles/volume] in Serum or Plasma 4.4 mEq/L 3.6 - 5.0 [facility] Chloride [Moles/volume] in Serum or Plasma 104 mEq/L 98 - 107 [facility] Carbon dioxide, total [Moles/volume] in Serum or Plasma 26 MEQ/L 22 - 30 [facility] Glucose [Mass/volume] in Serum or Plasma 105 MG/DL 70 - 99 H [facility] BUN 32 MG/DL 7 - 21 [facility] Creatinine [Mass/volume] in Serum or Plasma 1.9 MG/DL 0.7 - 1.5 H [facility] BUN/CREAT 17 8 - 27 [facility] Calcium [Mass/volume] in Serum or Plasma 8.9 MG/DL 8.4 - 10.2 [facility] Anion gap 3 in Serum or Plasma 9.0 mmol/L 8.0 - 16.0 [facility] 85 [facility] GFR 44 mL/min [facility] NON-AA GFR 36 mL/min [facility] GFR Inter prentation [...] >32 mL/min Normal ID Date Data Source [id number] 04/04/2021 04:52:00 PM EDT [facility] ([facility] Name Value Range Interpretation Code Description Data Izabela rce(s) Supporting Document(s) Basic Metabolic Pane Laboratory test result [facility] ([facility] Is patient fasting? N Sodium 139 meq/L 134-153 [facility] ([facility] Is patient fasting? N Potassium 4.4 meq/L 3.6-5.0 [facility] Is patient fasting? N Chloride 104 meq/L 98-107 [facility] ([facility] Is patient fasting? N Glucose 105 mg/dL 70-99 Above high normal [facility] ([facility] Is patient fasting? N Co2 26 meq/L 22-30 [facility] ([facility] Is patient fasting? N BUN 32 mg/dL 7-21 Above high normal [facility] Is patient fasting? N Creatinine 1.9 mg/dL 0.7-1.5 Above high normal [facility] ([facility] Is patient fasting? N Calcium 8.9 mg/dL 8.4-10.2 [facility] Is patient fasting? N BUN/Creat 17 8-27 [facility] ([facility] Is patient fasting? N Anion Gap 9.0 mmol/L 8.0-16.0 [facility] Is patient fasting? N Afr Amer GFR 44 mL/min [facility] ([facility] Is patient fasting? N Age 85 yrs [facility] ([facility] Is patient fasting? N Non-Aa GFR 36 mL/min [facility] Is patient fasting? N ID Date Data Source [id number] 03/29/2021 01:43:00 [place] [address] OPERATIVE SUMMARYNAME: CALLIE Young DATE OF : 1935ENDING PHYS: FIDEL MARSHALL MD DATE: 03/27/21 MR#: [id number] [id number] PROCEDURE: 03/27/2021RE-OPERATIVE DIAGNOSIS: Bilateral hydronephrosis secondary to bladder cancer.POST-OPERATIVE DIAGNOSIS: Bilateral hydronephrosis secondary to bladder cancer.PROCEDURE PERFORMED: 1. Bilateral nephrostomy tube exchange. 2. Bilateral antegrade nephrostograms.ATTENDING SURGEON: Dr. Fidel Marshall.PHYSICIAN STREETCAR MOTORMAN: EDITH Angulo.ANESTHESIA: Local.ESTIMATED BLOOD LOSS: Minimal.COMPLICATIONS: None.DRAINS: None.DISPOSITION: To [...] the patient was comfortable and monitoring 1 [place] [address] OPERATIVE SUMMARYNAME: CALLIE Young DATE OF : 1935ENDING PHYS: FIDEL MARSHALL MD DATE: 03/27/21 MR#: [id number] were placed on the patient, the nephrostomy tube sites were cleaned, prepped, and drapedin the usual sterile fashion. We then cut the end of the nephrostomy tube and the time-out wascompleted. Under fluoroscopic guidance, a 0.03 guidewire was inserted through the nephrostomytube into the collecting system of the kidney, and the indwelling nephrostomy tube was pulled out.Over the guidewire, a 10 Armenian nephrostomy tube was advanced until it got [...] rce(s) Supporting Document(s) ID Date Data Source [id number] 03/29/2021 11:34:00 AM EDT [facility] ([facility] Name Value Range Interpretation Code Description Data Izabela rce(s) Supporting Document(s) Request Problem Laboratory test result [facility] ([facility] Test not performed. No stool culture tra nsport device received. TEST: [id number] GI Profile, Stool, PCR ID Date Data Source [id number] 03/29/2021 11:34:00 AM EDT [facility] ([facility] Name Value Range Interpretation Code Description Data [facility] rce(s) Supporting Document(s) Ova + Parasite Exam Laboratory test result [facility] ([facility] These results were obtained [...] a parasitic infection. ID Date Data Source [id number] 03/29/2021 11:34:00 AM EDT [facility] ([facility] [...] performed Sapovirus Laboratory test result [facility] ([facility] Test not performed Rotavirus A Laboratory test result M [facility] ([facility] Test not performed Laboratory test finding (navigational concept) Laboratory test result [facility] ([facility] Test not performed ID Date Data Source [id number] 03/27/2021 02:37:00 PM EDT [facility] ([facility] Name Value Range Interpretation Code Description Data Izabela rce(s) Supporting Document(s) Laboratory test finding (navigational concept) Laboratory test result [facility] ([facility] Campylobacter Laboratory test result [facility] ([facility] Laboratory test finding (navigational concept) Laboratory test result [facility] ([facility] Vibrio Laboratory test result [facility] ([facility] Salmonella Laboratory test result [facility] ([facility] Laboratory test finding (navigational concept) Laboratory test result [facility] ([facility] Laboratory test finding (navigational concept) Laboratory test result [facility] ([facility] Laboratory test finding (navigational concept) Laboratory test result [facility] ([facility] Laboratory test finding (navigational concept) Laboratory test result [facility] ([facility] Laboratory test finding (navigational concept) Laboratory test result [facility] ([facility] Laboratory test finding (navigational concept) Laboratory test result [facility] ([facility] Laboratory test finding (navigational concept) Laboratory test result [facility] ([facility] Laboratory test finding (navigational concept) Laboratory test result [facility] ([facility] Entamoeba histolytica Laboratory test result [facility] ([facility] Laboratory test finding (navigational concept) Laboratory test result [facility] ([facility] Cryptosporidium Laboratory test result [facility] ([facility] Laboratory test finding (navigational concept) Laboratory test result [facility] ([facility] Astrovirus Laboratory test result [facility] ([facility] Giardia lamblia Laboratory test result [facility] ([facility] Laboratory test finding (navigational concept) Laboratory test result [facility] ([facility] Sapovirus Laboratory test result [facility] ([facility] Rotavirus A Laboratory test result M [facility] ([facility] ID Date Data Source [id number] 03/25/2021 09:30:00 AM EDT [facility] Name Value Range Interpretation Code Description Data Izabela rce(s) Supporting Document(s) SARS coronavirus 2 RNA Not Detected [facility] This lab was ordered by [facility] and reported by [employer]. ID Date Data Source [id number] 03/26/2021 02:10:00 PM EDT [facility] Name Value Range Interpretation Code Description Data Izabela rce(s) Supporting Document(s) SARS-CoV-2, JOHANNE Not Detected Not Detected [facility] This nucleic acid amplification test was developed and its performancecharacteristics determined by [employer]. Nucleic acidamplification tests include RT-PCR and TMA. [...] assay. SARS-CoV-2, JOHANNE 2 DAY TAT Performed [facility] ID Date Data Source [id number] 03/25/2021 09:30:00 AM EDT [facility] ([facility] Name Value Range Interpretation Code Description Data Izabela [facility](s) Supporting Document(s) Laboratory test finding (navigational concept) Laboratory test [facility] Sars-CoV-2, Johanne Laboratory test result [facility] ([facility] This nucleic acid amplification test was developed and its performance characteristics determined by [employer]. Nucleic acid amplification tests include RT-PCR and [...] in this assay. ID Date Data Source [id number] 02/13/2021 04:33:00 PM EDT [facility] Name Value Range Interpretation Code Description Data Izabela rce(s) Supporting Document(s) CBC W/AUTOMATED DIFF [facility] COMPLETE BLOOD COUNT Leukocytes [#/volume] in Blood by Automated count 6.5 10^3/uL 4.2 - 1 1.0 [facility] Erythrocytes [#/volume] in Blood by Automated count 3.18 10^6/uL 4. 50 - 6.30 L [facility] Hemoglobin [Mass/volume] in Blood 9.3 g/dL 14.0 - 16.0 L [facility] Hematocrit [Volume Fraction] of Blood by Automated count 28.8 % 4 1.0 - 51.0 L [facility] Erythrocyte mean corpuscular volume [Entitic volume] by Auto mated count 90.6 fL 80.0 - 94.0 [facility] Erythrocyte mean corpuscular hemoglobin [Entitic mass] by Automated count 29.2 pg 27.0 - 34.0 [facility] Erythrocyte mean corpuscular hemoglobin concentration [Mass/volume] by Automated count 32.3 g/dL 31.0 - 36.0 [facility] Erythrocyte distribution width [Ratio] by Automated count 13.1 % 11.5 - 14.8 [facility] Platelets [#/volume] in Blood by Automated count 251 10^3/uL 150 - 45 0 [facility] Platelet mean volume [Entitic volume] in Blood by Automated count 9.8 fL 7.4 - 10.4 [facility] Neutrophils/100 leukocytes in Blood by Automated count 62.9 % 37. 0 - 80.0 [facility] Lymphocytes/100 leukocytes in Blood by Manual count 18.7 % 25.0 - 40.0 L [facility] Monocytes/100 leukocytes in Blood by Automated count 10.7 % 3.0 - 8.0 H [facility] Eosinophils/100 leukocytes in Blood by Automated count 6.3 % 0.0 - 7.0 [facility] Basophils/100 leukocytes in Blood by Automated count 0.8 % 0.0 - 2.0 [facility] %IG 0.6 % 0.0 - 0.0 [facility] %NRBC 0.0 % 0.0 - 0.0 [facility] Neutrophils [#/volume] in Blood by Automated count 4.11 10^3/uL 2.00 - 6.90 [facility] Lymphocytes [#/volume] in Blood by Automated count 1.22 10^3/uL 0.60 - 3.40 [facility] Monocytes [#/volume] in Blood by Automated count 0.70 10^3/uL 0.00 - 0.90 [facility] Eosinophils [#/volume] in Blood by Automated count 0.41 10^3/uL 0.00 - 0.70 [facility] Basophils [#/volume] in Blood by Automated count 0.05 10^3/uL 0.00 - 0.20 [facility] #IG 0.04 10^3/uL 0.00 - 0.10 [facility] #NRBC 0.00 10^3/uL 0.00 - 0.00 [facility] MANUAL DIFF NOT INDICATED [facility] RBC MORPH NOT INDICATED [facility] ID Date Data Source [id number] 02/13/2021 04:19:00 PM EDT [facility] ([facility] Name Value Range Interpretation Code Description Data Izabela rce(s) Supporting Document(s) CBC W/Automated Diff Laboratory test result [facility] ([facility] .~.~R31.0 RBC 3.18 10^6/uL 4.50-6.30 Below low normal [facility] ([facility] .~.~R31.0 WBC 6.5 10^3/uL 4.2-11.0 [facility] ([facility] .~.~R31.0 Hematocrit 28.8 % 41.0-51.0 Below low normal [facility] ( [facility] .~.~R31.0 MCV 90.6 fL 80.0-94.0 [facility] ([facility] .~.~R31.0 Hemoglobin 9.3 g/dL 14.0-16.0 Below low normal [facility] ( [facility] .~.~R31.0 MCHC 32.3 g/dL 31.0-36.0 [facility] ([facility] .~.~R31.0 MCH 29.2 pg 27.0-34.0 [facility] ([facility] .~.~R31.0 RDW 13.1 % 11.5-14.8 [facility] ([facility] .~.~R31.0 MPV 9.8 fL 7.4-10.4 [facility] ([facility] .~.~R31.0 Platelets 251 10^3/uL 150-450 [facility] ([facility] .~.~R31.0 Lymph 18.7 % 25.0-40.0 Below low normal [facility] ( [facility] .~.~R31.0 Otero 10.7 % 3.0-8.0 Above high normal [facility] ([facility] .~.~R31.0 Neut 62.9 % 37.0-80.0 [facility] ([facility] .~.~R31.0 Eos 6.3 % 0.0-7.0 [facility] ([facility] .~.~R31.0 Baso 0.8 % 0.0-2.0 [facility] .~.~R31.0 %Ig 0.6 % 0.0-0.0 Above high normal [facility] ([facility] .~.~R31.0 %NRBC 0.0 % 0.0-0.0 [facility] ([facility] .~.~R31.0 #Neut 4.11 10^3/uL 2.00-6.90 [facility] ([facility] .~.~R31.0 #Lymph 1.22 10^3/uL 0.60-3.40 [facility] ([facility] .~.~R31.0 #Eos 0.41 10^3/uL 0.00-0.70 [facility] ([facility] .~.~R31.0 #Otero 0.70 10^3/uL 0.00-0.90 [facility] ([facility] .~.~R31.0 #Ig 0.04 10^3/uL 0.00-0.10 [facility] ([facility] .~.~R31.0 #Baso 0.05 10^3/uL 0.00-0.20 [facility] ([facility] [facility] .~.~R31.0 Manual Diff Laboratory test result M EDENT ([facility] .~.~R31.0 #NRBC 0.00 10^3/uL 0.00-0.00 MEDENT ([facility] .~.~R31.0 RBC Morph Laboratory test result ME MULLEN ([facility] .~.~R31.0 ID Date Data Source [id number] 01/14/2021 11:32:00 AM EDT MEDENT ([facility] Name Value Range Interpretation Code Description Data Izabela rce(s) Supporting Document(s) Sars-CoV-2, Johanne Laboratory test result MEDENT ([facility] This nucleic acid amplification test was developed and its performance characteristics determined by [employer]. Nucleic acid amplification tests include RT-PCR and [...] finding (navigational concept) Laboratory test result MEDENT ([facility] ID Date Data Source [id number] 01/14/2021 11:32:00 AM EDT [facility] Name Value Range Interpretation Code Description Data Izabela rce(s) Supporting Document(s) SARS coronavirus 2 RNA Not Detected [facility] This lab was ordered by [facility] elva and reported by [facility]. ID Date Data Source [id number] 01/15/2021 03:15:00 PM EDT [facility] Name Value Range Interpretation Code Description Data Izabela rce(s) Supporting Document(s) SARS-CoV-2, JOHANNE Not Detected Not Detected [facility] This nucleic acid amplification test was developed and its performancecharacteristics determined by [employer]. Nucleic acidamplification tests include RT-PCR and TMA. [...] assay. SARS-CoV-2, JOHANNE 2 DAY TAT Performed [facility] ID Date Data Source [id number] 01/02/2021 03:10:00 PM EDT [facility] ([facility] SRC:UA VOIDED ID Date Data Source [id number] 01/02/2021 02:28:00 PM EDT [facility] ([facility] Name Value Range Interpretation Code Description Data Izabela rce(s) Supporting Document(s) Color Laboratory test result ARABELLA ([facility] NORMAL RANGES Age WBC RBC [...] HCT IS 5% LESS SOURCE FOR DATA: Lang Ma 1800 OPERATION MANUAL( AUTOMATED BLOOD COUNTS AND [...] Normal Glucose-Ua Laboratory test result ME MULLEN ([facility] NORMAL RANGES Age WBC RBC [...] HCT IS 5% LESS SOURCE FOR DATA: Lang Ma 1800 OPERATION MANUAL( AUTOMATED BLOOD COUNTS AND [...] >32 mL/min Normal Clarity Laboratory test result [facility] ([facility] NORMAL RANGES Age WBC RBC [...] HCT IS 5% LESS SOURCE FOR DATA: [facility] DYN 1800 OPERATION MANUAL( AUTOMATED BLOOD COUNTS [...] >32 mL/min Normal Bilirubin,Urine Laboratory test result [employer] ([facility] NORMAL RANGES Age WBC [...] HCT IS 5% LESS SOURCE FOR DATA: Lang Ma 1800 OPERATION MANUAL( AUTOMATED BLOOD COUNTS AND [...] HCT IS 5% LESS SOURCE FOR DATA: Lang Ma 1800 OPERATION MANUAL( AUTOMATED BLOOD COUNTS AND [...] HCT IS 5% LESS SOURCE FOR DATA: Lang Ma 1800 OPERATION MANUAL( AUTOMATED BLOOD COUNTS AND [...] >32 mL/min Normal pH 5.0 # 5.0-8.0 [facility] NORMAL RANGES [...] HCT IS 5% LESS SOURCE FOR DATA: Lang Ma 1800 OPERATION MANUAL( AUTOMATED BLOOD COUNTS AND [...] HCT IS 5% LESS SOURCE FOR DATA: Lang Ma 1800 OPERATION MANUAL( AUTOMATED BLOOD COUNTS AND [...] >32 mL/min Normal Urobilinogen 0.2 NA 0.2-1.0 [facility] ([facility] NORMAL RANGES Age WBC [...] HCT IS 5% LESS SOURCE FOR DATA: Lang Ma 1800 OPERATION MANUAL( AUTOMATED BLOOD COUNTS AND [...] Abnormal (applies to non -numeric results) ARABELLA ([facility] NORMAL RANGES Age WBC [...] HCT IS 5% LESS SOURCE FOR DATA: Lang Ma 1800 OPERATION MANUAL( AUTOMATED BLOOD COUNTS AND [...] result Abnormal (applies to non -numeric results) [facility] ([facility] NORMAL RANGES Age WBC RBC [...] HCT IS 5% LESS SOURCE FOR DATA: Lang Ma 1800 OPERATION MANUAL( AUTOMATED BLOOD COUNTS AND [...] Laboratory test result Above high normal MEDENT ([facility] NORMAL RANGES Age WBC [...] >32 mL/min Normal ID Date Data Source [id number] 01/02/2021 02:28:00 PM EDT [facility] ([facility] Name Value Range Interpretation Code Description Data Izabela rce(s) Supporting Document(s) Hemoglobin A1c/Hemoglobin.total in Blood 5.8 % 4.40-6.10 [facility] ([facility] NORMAL RANGES Age WBC [...] HCT IS 5% LESS SOURCE FOR DATA: Lang Ma 1800 OPERATION MANUAL( AUTOMATED BLOOD COUNTS AND [...] >32 mL/min Normal ID Date Data Source [id number] 01/02/2021 02:28:00 PM EDT MEDENT ([facility] [...] HCT IS 5% LESS SOURCE FOR DATA: Lang Ma 1800 OPERATION MANUAL( AUTOMATED BLOOD COUNTS AND [...] HCT IS 5% LESS SOURCE FOR DATA: Lang Ma 1800 OPERATION MANUAL( AUTOMATED BLOOD COUNTS AND [...] >32 mL/min Normal Na 142 mmol/L 136-145 [facility] ([facility] NORMAL RANGES Age WBC [...] HCT IS 5% LESS SOURCE FOR DATA: Lang Ma 1800 OPERATION MANUAL( AUTOMATED BLOOD COUNTS AND [...] above >32 mL/min Normal BUN/Creatinine Ratio 20.2 [facility] ([facility] NORMAL RANGES [...] HCT IS 5% LESS SOURCE FOR DATA: Lang Ma 1800 OPERATION MANUAL( AUTOMATED BLOOD COUNTS AND [...] Creat 2.4 mg/dL 0.7-1.2 Above high normal [facility] ([facility] NORMAL RANGES Age WBC [...] HCT IS 5% LESS SOURCE FOR DATA: Lang Ma 1800 OPERATION MANUAL( AUTOMATED BLOOD COUNTS AND [...] mmol/L 98.0-107.0 Above high normal MEDEN T ([facility] NORMAL RANGES Age WBC RBC [...] HCT IS 5% LESS SOURCE FOR DATA: Lang Ma 1800 OPERATION MANUAL( AUTOMATED BLOOD COUNTS AND [...] >32 mL/min Normal K 4.4 mmol/L 3.5-5.1 [facility] ([facility] NORMAL RANGES Age WBC [...] TP 5.9 g/dL 6.6-8.7 Below low normal [facility] ( [facility] NORMAL RANGES [...] HCT IS 5% LESS SOURCE FOR DATA: Lang Ma 1800 OPERATION MANUAL( AUTOMATED BLOOD COUNTS AND [...] >32 mL/min Normal CA 8.6 mg/dL 8.6-10.2 [facility] NORMAL RANGES Age WBC [...] HCT IS 5% LESS SOURCE FOR DATA: Lang Ma 1800 OPERATION MANUAL( AUTOMATED BLOOD COUNTS AND [...] >32 mL/min Normal Co2 22.4 mmol/L 22.0-29.0 [facility] ([facility] NORMAL RANGES Age WBC [...] HCT IS 5% LESS SOURCE FOR DATA: Lang Ma 1800 OPERATION MANUAL( AUTOMATED BLOOD COUNTS AND [...] >32 mL/min Normal Alb 3.8 g/dL 3.5-5.2 [facility] ([facility] NORMAL RANGES [...] HCT IS 5% LESS SOURCE FOR DATA: Lang Ma 1800 OPERATION MANUAL( AUTOMATED BLOOD COUNTS AND [...] HCT IS 5% LESS SOURCE FOR DATA: Lang Ma 1800 OPERATION MANUAL( AUTOMATED BLOOD COUNTS AND [...] HCT IS 5% LESS SOURCE FOR DATA: Lang Ma 1800 OPERATION MANUAL( AUTOMATED BLOOD COUNTS AND [...] mL/min Normal Ast (Sgot) 15 U/L 0-40 [facility] ([facility] NORMAL RANGES Age WBC [...] HCT IS 5% LESS SOURCE FOR DATA: Zhenai DYN 1800 OPERATION MANUAL( AUTOMATED BLOOD COUNTS [...] >32 mL/min Normal Alp 90.0 U/L 40-129 [facility] NORMAL RANGES Age WBC [...] HCT IS 5% LESS SOURCE FOR DATA: Lang Ma 1800 OPERATION MANUAL( AUTOMATED BLOOD COUNTS AND [...] mL/min Normal Alt (SGPT) 20 U/L 0-41 [facility] ([facility] NORMAL RANGES Age WBC [...] >32 mL/min Normal Anion Gap 16 mmol/L [facility] ([facility] NORMAL RANGES Age WBC [...] HCT IS 5% LESS SOURCE FOR DATA: Lang Ma 1800 OPERATION MANUAL( AUTOMATED BLOOD COUNTS AND [...] >32 mL/min Normal Tbili 0.21 mg/dL 0.0-1.2 [facility] ([facility] NORMAL RANGES Age WBC [...] HCT IS 5% LESS SOURCE FOR DATA: Lang Ma 1800 OPERATION MANUAL( AUTOMATED BLOOD COUNTS AND [...] HCT IS 5% LESS SOURCE FOR DATA: Lang Ma 1800 OPERATION MANUAL( AUTOMATED BLOOD COUNTS AND [...] and above >32 mL/min Normal eGFR Non-Afr. Ukrainian 24 # MEDENT ([facility] [...] HCT IS 5% LESS SOURCE FOR DATA: Lang Ma 1800 OPERATION MANUAL( AUTOMATED BLOOD COUNTS AND [...] HCT IS 5% LESS SOURCE FOR DATA: Lang Ma 1800 OPERATION MANUAL( AUTOMATED BLOOD COUNTS AND [...] >32 mL/min Normal ID Date Data Source [id number] 01/02/2021 02:28:00 PM EDT MEDENT ([facility] Name Value Range Interpretation Code Description Data Izabela rce(s) Supporting Document(s) WBC 5.9 10E3/uL 4.1-10.9 [facility] ([facility] NORMAL RANGES Age WBC [...] HCT IS 5% LESS SOURCE FOR DATA: Lang Ma 1800 OPERATION MANUAL( AUTOMATED BLOOD COUNTS AND [...] RBC 3.50 10E6/uL 4.20-6.30 Below low normal [facility] ([facility] NORMAL RANGES Age WBC [...] HCT IS 5% LESS SOURCE FOR DATA: Lang Ma 1800 OPERATION MANUAL( AUTOMATED BLOOD COUNTS AND [...] HGB 10.1 g/dL 12.0-18.0 Below low normal [facility] ( [facility] NORMAL RANGES Age WBC RBC [...] HCT IS 5% LESS SOURCE FOR DATA: Lang Ma 1800 OPERATION MANUAL( AUTOMATED BLOOD COUNTS AND [...] HCT 32.3 % 37.0-51.0 Below low normal [facility] ( [facility] NORMAL RANGES Age WBC [...] >32 mL/min Normal MCV 92.3 fL 80.0-97.0 [facility] ([facility] NORMAL RANGES Age WBC [...] HCT IS 5% LESS SOURCE FOR DATA: Lang Ma 1800 OPERATION MANUAL( AUTOMATED BLOOD COUNTS AND [...] >32 mL/min Normal MCH 28.9 pg 26.0-32.0 [facility] ([facility] NORMAL [...] HCT IS 5% LESS SOURCE FOR DATA: Lang Ma 1800 OPERATION MANUAL( AUTOMATED BLOOD COUNTS AND [...] >32 mL/min Normal PLT 267 10E3/uL 140-440 [facility] ([facility] NORMAL RANGES Age WBC [...] HCT IS 5% LESS SOURCE FOR DATA: Lang Ma 1800 OPERATION MANUAL( AUTOMATED BLOOD COUNTS AND [...] >32 mL/min Normal MCHC 31.3 g/dL 31.0-36.0 [facility] ([facility] NORMAL [...] HCT IS 5% LESS SOURCE FOR DATA: Lang Ma 1800 OPERATION MANUAL( AUTOMATED BLOOD COUNTS AND [...] HCT IS 5% LESS SOURCE FOR DATA: Lang Ma 1800 OPERATION MANUAL( AUTOMATED BLOOD COUNTS AND [...] HCT IS 5% LESS SOURCE FOR DATA: Lang Ma 1800 OPERATION MANUAL( AUTOMATED BLOOD COUNTS AND [...] HCT IS 5% LESS SOURCE FOR DATA: Lang Ma 1800 OPERATION MANUAL( AUTOMATED BLOOD COUNTS AND [...] mL/min Normal Lym# 2.1 10E3/uL 0.6-4.1 ARABELLA ([facility] NORMAL RANGES Age WBC RBC HGB [...] HCT IS 5% LESS SOURCE FOR DATA: Lang Ma 1800 OPERATION MANUAL( AUTOMATED BLOOD COUNTS AND [...] >32 mL/min Normal MXD% 9.7 % 0.1-24.0 [facility] ([facility] NORMAL RANGES Age WBC [...] HCT IS 5% LESS SOURCE FOR DATA: Lang Ma 1800 OPERATION MANUAL( AUTOMATED BLOOD COUNTS AND [...] >32 mL/min Normal Neut# 3.2 % 2.0-7.8 [facility] ([facility] NORMAL RANGES Age WBC [...] MPV 8.5 fL 9.0-13.0 Below low normal [facility] ( [facility] NORMAL [...] HCT IS 5% LESS SOURCE FOR DATA: Lang Ma 1800 OPERATION MANUAL( AUTOMATED BLOOD COUNTS AND [...] >32 mL/min Normal MXD# 0.6 10E3/uL 0.0-1.8 [facility] NORMAL RANGES Age WBC [...] HCT IS 5% LESS SOURCE FOR DATA: Lang Ma 1800 OPERATION MANUAL( AUTOMATED BLOOD COUNTS AND [...] >32 mL/min Normal ID Date Data Source [id number] 11/30/2020 02:33:00 PM EDT MEDENT ([facility] Name Value Range Interpretation Code Description Data Izabela rce(s) Supporting Document(s) Urine Culture, Routine Laboratory test result Ab normal (applies to non-numeric results) MEDENT ([facility] ) SRC:CATHETER Bacteria identified in Urine by Culture Laboratory test result Abnormal (applies to non-numeric results) MEDENT ([facility] SRC:CATHETER Bacteria identified in Urine by Culture Laboratory test result Abnormal (applies to non-numeric results) [facility] ([facility] SRC:CATHETER Antimicrobial Susceptibility Laboratory test result MEDENT ([facility] SRC:CATHETER ID Date Data Source [id number] 11/30/2020 02:08:00 PM EDT ARABELLA ([facility] Name Value Range Interpretation Code Description Data Izabela rce(s) Supporting Document(s) Color Laboratory test result ARBAELLA ([facility] NORMAL RANGES Age WBC RBC HGB [...] HCT IS 5% LESS SOURCE FOR DATA: Lang Ma 1800 OPERATION MANUAL( AUTOMATED BLOOD COUNTS AND [...] Normal Glucose-Ua Laboratory test result ME MULLEN ([facility] NORMAL RANGES Age WBC [...] HCT IS 5% LESS SOURCE FOR DATA: Lang Ma 1800 OPERATION MANUAL( AUTOMATED BLOOD COUNTS AND [...] >32 mL/min Normal Clarity Laboratory test result [facility] ([facility] NORMAL RANGES Age WBC RBC [...] HCT IS 5% LESS SOURCE FOR DATA: Lang Ma 1800 OPERATION MANUAL( AUTOMATED BLOOD COUNTS AND [...] >32 mL/min Normal Bilirubin,Urine Laboratory test result [facility] ([facility] NORMAL RANGES Age WBC [...] HCT IS 5% LESS SOURCE FOR DATA: Lang Ma 1800 OPERATION MANUAL( AUTOMATED BLOOD COUNTS AND [...] >32 mL/min Normal Ketone Laboratory test result [facility] ([facility] NORMAL RANGES Age WBC [...] HCT IS 5% LESS SOURCE FOR DATA: Lang Ma 1800 OPERATION MANUAL( AUTOMATED BLOOD COUNTS AND [...] HCT IS 5% LESS SOURCE FOR DATA: Lang Ma 1800 OPERATION MANUAL( AUTOMATED BLOOD COUNTS AND [...] HCT IS 5% LESS SOURCE FOR DATA: Lang Ma 1800 OPERATION MANUAL( AUTOMATED BLOOD COUNTS AND [...] HCT IS 5% LESS SOURCE FOR DATA: Lang Ma 1800 OPERATION MANUAL( AUTOMATED BLOOD COUNTS AND [...] HCT IS 5% LESS SOURCE FOR DATA: Lang Ma 1800 OPERATION MANUAL( AUTOMATED BLOOD COUNTS AND [...] mL/min Normal Urobilinogen 0.2 NA 0.2-1.0 [facility] ([facility] NORMAL RANGES Age [...] HCT IS 5% LESS SOURCE FOR DATA: Lang Ma 1800 OPERATION MANUAL( AUTOMATED BLOOD COUNTS AND [...] Abnormal (applies to non -numeric results) ARABELLA ([facility] NORMAL RANGES Age WBC [...] HCT IS 5% LESS SOURCE FOR DATA: Lang Ma 1800 OPERATION MANUAL( AUTOMATED BLOOD COUNTS AND [...] mL/min Normal Comment Laboratory test result ARABELLA ([facility] NORMAL RANGES Age WBC RBC [...] HCT IS 5% LESS SOURCE FOR DATA: Lang Ma 1800 OPERATION MANUAL( AUTOMATED BLOOD COUNTS AND [...] result Abnormal (applies to non -numeric results) [facility] ([facility] NORMAL RANGES Age WBC [...] HCT IS 5% LESS SOURCE FOR DATA: Lang Ma 1800 OPERATION MANUAL( AUTOMATED BLOOD COUNTS AND [...] >32 mL/min Normal ID Date Data Source [id number] 11/30/2020 02:08:00 PM EDT [facility] ([facility] Name Value Range Interpretation Code Description Data Izabela rce(s) Supporting Document(s) Glu 168 mg/dL 70-110 Above high normal [facility] ([facility] NORMAL RANGES Age WBC RBC [...] HCT IS 5% LESS SOURCE FOR DATA: Lang Ma 1800 OPERATION MANUAL( AUTOMATED BLOOD COUNTS AND [...] BUN 48 mg/dL 8-23 Above high normal [facility] ([facility] NORMAL RANGES Age [...] HCT IS 5% LESS SOURCE FOR DATA: Lang Ma 1800 OPERATION MANUAL( AUTOMATED BLOOD COUNTS AND [...] above >32 mL/min Normal BUN/Creatinine Ratio 24.0 [facility] ([facility] NORMAL RANGES [...] HCT IS 5% LESS SOURCE FOR DATA: Lang Ma 1800 OPERATION MANUAL( AUTOMATED BLOOD COUNTS AND [...] HCT IS 5% LESS SOURCE FOR DATA: Lang Ma 1800 OPERATION MANUAL( AUTOMATED BLOOD COUNTS AND [...] CL 97.3 mmol/L 98.0-107.0 Below low normal [facility] ([facility] NORMAL RANGES Age [...] HCT IS 5% LESS SOURCE FOR DATA: Lang Ma 1800 OPERATION MANUAL( AUTOMATED BLOOD COUNTS AND [...] >32 mL/min Normal K 4.0 mmol/L 3.5-5.1 [facility] ([facility] NORMAL RANGES Age WBC RBC HGB [...] HCT IS 5% LESS SOURCE FOR DATA: Lang Ma 1800 OPERATION MANUAL( AUTOMATED BLOOD COUNTS AND [...] Na 129 mmol/L 136-145 Below low normal [facility] ( [facility] NORMAL RANGES Age WBC RBC [...] HCT IS 5% LESS SOURCE FOR DATA: Lang Ma 1800 OPERATION MANUAL( AUTOMATED BLOOD COUNTS AND [...] >32 mL/min Normal CA 8.8 mg/dL 8.6-10.2 [facility] ([facility] NORMAL RANGES Age WBC [...] HCT IS 5% LESS SOURCE FOR DATA: Lang Ma 1800 OPERATION MANUAL( AUTOMATED BLOOD COUNTS AND [...] HCT IS 5% LESS SOURCE FOR DATA: Lang Ma 1800 OPERATION MANUAL( AUTOMATED BLOOD COUNTS AND [...] TP 6.2 g/dL 6.6-8.7 Below low normal [facility] ( [facility] NORMAL [...] HCT IS 5% LESS SOURCE FOR DATA: Lang Ma 1800 OPERATION MANUAL( AUTOMATED BLOOD COUNTS AND [...] >32 mL/min Normal A/G Ratio 1.7 Calc [facility] NORMAL RANGES Age WBC [...] HCT IS 5% LESS SOURCE FOR DATA: Lang Ma 1800 OPERATION MANUAL( AUTOMATED BLOOD COUNTS AND [...] >32 mL/min Normal Globulin 2.3 Calc [facility] ([facility] NORMAL RANGES Age WBC [...] HCT IS 5% LESS SOURCE FOR DATA: Lang Ma 1800 OPERATION MANUAL( AUTOMATED BLOOD COUNTS AND [...] >32 mL/min Normal Alb 3.9 g/dL 3.5-5.2 [facility] ([facility] NORMAL RANGES [...] HCT IS 5% LESS SOURCE FOR DATA: Lang Ma 1800 OPERATION MANUAL( AUTOMATED BLOOD COUNTS AND [...] HCT IS 5% LESS SOURCE FOR DATA: Lang Ma 1800 OPERATION MANUAL( AUTOMATED BLOOD COUNTS AND [...] mL/min Normal Alt (SGPT) 24 U/L 0-41 [facility] NORMAL RANGES Age WBC RBC [...] HCT IS 5% LESS SOURCE FOR DATA: Lang Ma 1800 OPERATION MANUAL( AUTOMATED BLOOD COUNTS AND [...] mL/min Normal Osmolality-Calculated 274.8 Calc MED ENT ([facility] NORMAL RANGES Age WBC [...] HCT IS 5% LESS SOURCE FOR DATA: Lang Ma 1800 OPERATION MANUAL( AUTOMATED BLOOD COUNTS AND [...] mL/min Normal Ast (Sgot) 26 U/L 0-40 [facility] ([facility] NORMAL RANGES Age WBC RBC HGB [...] HCT IS 5% LESS SOURCE FOR DATA: Lang Ma 1800 OPERATION MANUAL( AUTOMATED BLOOD COUNTS AND [...] >32 mL/min Normal Tbili 0.33 mg/dL 0.0-1.2 [facility] ([facility] NORMAL RANGES Age WBC [...] and above >32 mL/min Normal eGFR Non-Afr. Ukrainian 30 # [facility] ([facility] [...] HCT IS 5% LESS SOURCE FOR DATA: Zhenai DYN 1800 OPERATION MANUAL( AUTOMATED BLOOD COUNTS [...] HCT IS 5% LESS SOURCE FOR DATA: Lang Ma 1800 OPERATION MANUAL( AUTOMATED BLOOD COUNTS AND [...] >32 mL/min Normal Anion Gap 14 mmol/L [facility] NORMAL RANGES Age WBC [...] HCT IS 5% LESS SOURCE FOR DATA: Lang Ma 1800 OPERATION MANUAL( AUTOMATED BLOOD COUNTS AND [...] >32 mL/min Normal ID Date Data Source [id number] 11/30/2020 02:08:00 PM EDT ARABELLA ([facility] Name Value Range Interpretation Code Description Data Izabela rce(s) Supporting Document(s) WBC 4.7 10E3/uL 4.1-10.9 AR[facility]ELLA ([facility] NORMAL RANGES Age WBC [...] HCT IS 5% LESS SOURCE FOR DATA: Lang Ma 1800 OPERATION MANUAL( AUTOMATED BLOOD COUNTS AND [...] HCT IS 5% LESS SOURCE FOR DATA: Lang Ma 1800 OPERATION MANUAL( AUTOMATED BLOOD COUNTS AND [...] RBC 3.42 10E6/uL 4.20-6.30 Below low normal [facility] ([facility] NORMAL RANGES Age [...] HCT IS 5% LESS SOURCE FOR DATA: Lang Ma 1800 OPERATION MANUAL( AUTOMATED BLOOD COUNTS AND [...] HCT 30.5 % 37.0-51.0 Below low normal [facility] ( [facility] NORMAL RANGES Age WBC [...] HCT IS 5% LESS SOURCE FOR DATA: Lang Ma 1800 OPERATION MANUAL( AUTOMATED BLOOD COUNTS AND [...] >32 mL/min Normal MCV 89.2 fL 80.0-97.0 [facility] NORMAL RANGES Age WBC [...] HCT IS 5% LESS SOURCE FOR DATA: Lang Ma 1800 OPERATION MANUAL( AUTOMATED BLOOD COUNTS AND [...] >32 mL/min Normal MCH 28.9 pg 26.0-32.0 [facility] ([facility] NORMAL RANGES Age WBC [...] >32 mL/min Normal MCHC 32.5 g/dL 31.0-36.0 [facility] NORMAL RANGES Age WBC [...] HCT IS 5% LESS SOURCE FOR DATA: Zhenai DYN 1800 OPERATION MANUAL( AUTOMATED BLOOD COUNTS [...] >32 mL/min Normal PLT 235 10E3/uL 140-440 [facility] ([facility] NORMAL RANGES Age WBC [...] HCT IS 5% LESS SOURCE FOR DATA: Lang Ma 1800 OPERATION MANUAL( AUTOMATED BLOOD COUNTS AND [...] >32 mL/min Normal RDW-CV 13.7 % 11.5-14.5 [facility] ([facility] NORMAL RANGES Age [...] HCT IS 5% LESS SOURCE FOR DATA: Lang Ma 1800 OPERATION MANUAL( AUTOMATED BLOOD COUNTS AND [...] >32 mL/min Normal Lym% 24.8 % 10.0-58.5 [facility] ([facility] NORMAL [...] HCT IS 5% LESS SOURCE FOR DATA: Lang Ma 1800 OPERATION MANUAL( AUTOMATED BLOOD COUNTS AND [...] HCT IS 5% LESS SOURCE FOR DATA: Lang Ma 1800 OPERATION MANUAL( AUTOMATED BLOOD COUNTS AND [...] >32 mL/min Normal MXD% 13.6 % 0.1-24.0 [facility] ([facility] NORMAL [...] HCT IS 5% LESS SOURCE FOR DATA: Lang Ma 1800 OPERATION MANUAL( AUTOMATED BLOOD COUNTS AND [...] >32 mL/min Normal Neut# 2.9 % 2.0-7.8 [facility] ([facility] NORMAL RANGES Age WBC [...] HCT IS 5% LESS SOURCE FOR DATA: Lang Ma 1800 OPERATION MANUAL( AUTOMATED BLOOD COUNTS AND [...] mL/min Normal Lym# 1.2 10E3/uL 0.6-4.1 [place] ([facility] NORMAL RANGES Age WBC RBC HGB [...] HCT IS 5% LESS SOURCE FOR DATA: Lang Ma 1800 OPERATION MANUAL( AUTOMATED BLOOD COUNTS AND [...] >32 mL/min Normal MXD# 0.6 10E3/uL 0.0-1.8 [facility] NORMAL RANGES Age WBC RBC HGB [...] >32 mL/min Normal MPV 9.1 fL 9.0-13.0 [facility] ([facility] [facility] NORMAL RANGES Age [...] >32 mL/min Normal ID Date Data Source [id number] 10/20/2020 05:56:00 [place] [address] OPERATIVE SUMMARYNAME: CALLIE Young DATE OF : 1935TTENDING PHYS: FIDEL MARSHALL MD [facility] [id number] DATE: 10/19/20 MR#: [id number] PROCEDURE: 10/19/20PREOPERATIVE DIAGNOSIS: Bilateral hydronephrosisPOSTOPERATIVE DIAGNOSIS: Bilateral hydronephrosisPROCEDURE PERFORMED: Bilateral nephrostomy tube exchange with bilateral antegradenephrostogramSURGEON: Fidel Marshall M.D.STREETCAR MOTORMAN: NOE AnguloTHESIA: LocalESTIMATED BLOOD LOSS: None.COMPLICATIONS: None.DRAINS: [...] the nephrostomy tubes were cut and a [address] [place] [address] OPERATIVE SUMMARYNAME: CALLIE Young DATE OF : 1935TTENDING PHYS: FIDEL MARSHALL MD DATE: 10/19/20 MR#: [id number] was inserted into the collecting system of the kidney. The indwelling nephrostomy tubeswere then removed over the guidewire. A new 10-Armenian nephrostomy tube was then inserted overthe guidewire [...] rce(s) Supporting Document(s) ID Date Data Source [id number] 10/15/2020 09:00:00 AM EDT [facility] ([facility] Name Value Range Interpretation Code Description Data [facility] rce(s) Supporting Document(s) Sars-CoV-2, Johanne Laboratory test result [facility] ([facility] This nucleic acid amplification test was developed and its performance characteristics determined by [employer]. Nucleic acid amplification tests include RT-PCR and [...] [facility] ID Date Data Source [id number] 10/15/2020 09:00:00 AM EDT [facility] Name Value Range Interpretation Code Description Data Izabela rce(s) Supporting Document(s) SARS coronavirus 2 RNA Not Detected [facility] This lab was ordered by [facility] elva and reported by [employer]. ID Date Data Source [id number] 10/17/2020 06:17:00 AM EDT [facility] Name Value Range Interpretation Code Description Data Izabela rce(s) Supporting Document(s) SARS-CoV-2, JOHANNE Not Detected Not Detected [facility] This nucleic acid amplification test was developed and its performancecharacteristics determined by [employer]. Nucleic acidamplification tests include RT-PCR and TMA. [...] assay. SARS-CoV-2, JOHANNE 2 DAY TAT Performed [facility] ID Date Data Source [id number] 10/03/2020 02:53:00 PM EDT [facility] ([facility] Name Value Range Interpretation Code Description Data Izabela rce(s) Supporting Document(s) Creatine kinase [Enzymatic activity/volume] in Serum or Plasma 243 U/L 39-308 [facility] ([facility] NORMAL RANGES Age WBC [...] HCT IS 5% LESS SOURCE FOR DATA: Lang Ma 1800 OPERATION MANUAL( AUTOMATED BLOOD COUNTS AND [...] >32 mL/min Normal ID Date Data Source [id number] 10/03/2020 02:53:00 PM EDT [facility] ([facility] Name Value Range Interpretation Code Description Data Izabela rce(s) Supporting Document(s) Glu 130 mg/dL 70-110 Above high normal [facility] ([facility] NORMAL RANGES Age WBC RBC [...] HCT IS 5% LESS SOURCE FOR DATA: Lang Ma 1800 OPERATION MANUAL( AUTOMATED BLOOD COUNTS AND [...] BUN 46 mg/dL 8-23 Above high normal [facility] ([facility] NORMAL RANGES Age [...] HCT IS 5% LESS SOURCE FOR DATA: Lang Ma 1800 OPERATION MANUAL( AUTOMATED BLOOD COUNTS AND [...] >32 mL/min Normal BUN/Creatinine Ratio 21.5 Calc [facility] ([facility] NORMAL RANGES [...] HCT IS 5% LESS SOURCE FOR DATA: Lang Ma 1800 OPERATION MANUAL( AUTOMATED BLOOD COUNTS AND [...] HCT IS 5% LESS SOURCE FOR DATA: Lang Ma 1800 OPERATION MANUAL( AUTOMATED BLOOD COUNTS AND [...] HCT IS 5% LESS SOURCE FOR DATA: Lang Ma 1800 OPERATION MANUAL( AUTOMATED BLOOD COUNTS AND [...] mL/min Normal K 5.0 mmol/L 3.5-5.1 [facility] NORMAL RANGES Age WBC RBC [...] HCT IS 5% LESS SOURCE FOR DATA: Lang Ma 1800 OPERATION MANUAL( AUTOMATED BLOOD COUNTS AND [...] >32 mL/min Normal CL 106.6 mmol/L 98.0-107.0 [facility] ([facility] NORMAL RANGES Age WBC RBC HGB [...] >32 mL/min Normal Co2 22.0 mmol/L 22.0-29.0 [facility] NORMAL RANGES Age WBC RBC HGB [...] >32 mL/min Normal CA 8.6 mg/dL 8.6-10.2 [facility] ([facility] NORMAL RANGES Age WBC [...] HCT IS 5% LESS SOURCE FOR DATA: Lang Ma 1800 OPERATION MANUAL( AUTOMATED BLOOD COUNTS AND [...] HCT IS 5% LESS SOURCE FOR DATA: Lang Ma 1800 OPERATION MANUAL( AUTOMATED BLOOD COUNTS AND [...] >32 mL/min Normal Alb 3.9 g/dL 3.5-5.2 [facility] NORMAL RANGES Age WBC [...] HCT IS 5% LESS SOURCE FOR DATA: Lang Ma 1800 OPERATION MANUAL( AUTOMATED BLOOD COUNTS AND [...] HCT IS 5% LESS SOURCE FOR DATA: Lang Ma 1800 OPERATION MANUAL( AUTOMATED BLOOD COUNTS AND [...] HCT IS 5% LESS SOURCE FOR DATA: Lang Ma 1800 OPERATION MANUAL( AUTOMATED BLOOD COUNTS AND [...] Alp 152.2 U/L 40-129 Above high normal [facility] ([facility] NORMAL RANGES [...] HCT IS 5% LESS SOURCE FOR DATA: Lang Ma 1800 OPERATION MANUAL( AUTOMATED BLOOD COUNTS AND [...] mL/min Normal Alt (SGPT) 13 U/L 0-41 [facility] ([facility] NORMAL [...] HCT IS 5% LESS SOURCE FOR DATA: Lang Ma 1800 OPERATION MANUAL( AUTOMATED BLOOD COUNTS AND [...] >32 mL/min Normal Tbili 0.08 mg/dL 0.0-1.2 [facility] ([facility] NORMAL RANGES Age WBC RBC HGB [...] HCT IS 5% LESS SOURCE FOR DATA: Lang Ma 1800 OPERATION MANUAL( AUTOMATED BLOOD COUNTS AND [...] mL/min Normal Ast (Sgot) 17 U/L 0-40 [facility] ([facility] NORMAL RANGES Age WBC [...] HCT IS 5% LESS SOURCE FOR DATA: Lang Ma 1800 OPERATION MANUAL( AUTOMATED BLOOD COUNTS AND [...] >32 mL/min Normal Anion Gap 13 mmol/L [facility] ([facility] NORMAL RANGES Age WBC [...] HCT IS 5% LESS SOURCE FOR DATA: Lang Ma 1800 OPERATION MANUAL( AUTOMATED BLOOD COUNTS AND [...] and above >32 mL/min Normal eGFR Non-Afr. Ukrainian 28 # [facility] ([facility] [...] HCT IS 5% LESS SOURCE FOR DATA: Lang Ma 1800 OPERATION MANUAL( AUTOMATED BLOOD COUNTS AND [...] HCT IS 5% LESS SOURCE FOR DATA: Lang Ma 1800 OPERATION MANUAL( AUTOMATED BLOOD COUNTS AND [...] >32 mL/min Normal ID Date Data Source [id number] 10/03/2020 02:53:00 PM EDT [facility] ([facility] Name Value Range Interpretation Code Description Data Izabela rce(s) Supporting Document(s) WBC 4.1 10E3/uL 4.1-10.9 [facility] ([facility] NORMAL RANGES Age WBC [...] HCT IS 5% LESS SOURCE FOR DATA: Lang Ma 1800 OPERATION MANUAL( AUTOMATED BLOOD COUNTS AND [...] RBC 3.57 10E6/uL 4.20-6.30 Below low normal [facility] ([facility] NORMAL RANGES Age [...] HCT IS 5% LESS SOURCE FOR DATA: Lang Ma 1800 OPERATION MANUAL( AUTOMATED BLOOD COUNTS AND [...] HGB 10.7 g/dL 12.0-18.0 Below low normal [facility] ( [facility] NORMAL RANGES Age WBC [...] HCT IS 5% LESS SOURCE FOR DATA: Lang Ma 1800 OPERATION MANUAL( AUTOMATED BLOOD COUNTS AND [...] HCT 33.0 % 37.0-51.0 Below low normal [facility] ( [facility] NORMAL RANGES Age WBC [...] HCT IS 5% LESS SOURCE FOR DATA: Lang Ma 1800 OPERATION MANUAL( AUTOMATED BLOOD COUNTS AND [...] >32 mL/min Normal MCV 92.4 fL 80.0-97.0 [facility] ([facility] NORMAL RANGES Age WBC [...] >32 mL/min Normal MCH 30.0 pg 26.0-32.0 [facility] ([facility] NORMAL RANGES Age [...] HCT IS 5% LESS SOURCE FOR DATA: Lang Ma 1800 OPERATION MANUAL( AUTOMATED BLOOD COUNTS AND [...] >32 mL/min Normal MCHC 32.4 g/dL 31.0-36.0 [facility] ([facility] NORMAL [...] HCT IS 5% LESS SOURCE FOR DATA: Lang Ma 1800 OPERATION MANUAL( AUTOMATED BLOOD COUNTS AND [...] >32 mL/min Normal RDW-CV 12.6 % 11.5-14.5 [facility] ([facility] NORMAL RANGES Age [...] HCT IS 5% LESS SOURCE FOR DATA: Lang Ma 1800 OPERATION MANUAL( AUTOMATED BLOOD COUNTS AND [...] >32 mL/min Normal Lym% 34.6 % 10.0-58.5 [facility] ([facility] NORMAL RANGES [...] HCT IS 5% LESS SOURCE FOR DATA: Lang Ma 1800 OPERATION MANUAL( AUTOMATED BLOOD COUNTS AND [...] >32 mL/min Normal PLT 202 10E3/uL 140-440 [facility] ([facility] NORMAL RANGES Age WBC [...] HCT IS 5% LESS SOURCE FOR DATA: Lang Ma 1800 OPERATION MANUAL( AUTOMATED BLOOD COUNTS AND [...] >32 mL/min Normal Neut% 54.4 % 37.0-92.0 [facility] ([facility] NORMAL [...] HCT IS 5% LESS SOURCE FOR DATA: Lang Ma 1800 OPERATION MANUAL( AUTOMATED BLOOD COUNTS AND [...] >32 mL/min Normal MXD% 11.0 % 0.1-24.0 [facility] ([facility] NORMAL RANGES Age WBC [...] HCT IS 5% LESS SOURCE FOR DATA: Lang Ma 1800 OPERATION MANUAL( AUTOMATED BLOOD COUNTS AND [...] mL/min Normal MXD# 0.5 10E3/uL 0.0-1.8 [facility] ([facility] NORMAL RANGES Age WBC RBC HGB [...] HCT IS 5% LESS SOURCE FOR DATA: Lang Ma 1800 OPERATION MANUAL( AUTOMATED BLOOD COUNTS AND [...] >32 mL/min Normal Neut# 2.2 % 2.0-7.8 [facility] ([facility] NORMAL RANGES Age WBC [...] HCT IS 5% LESS SOURCE FOR DATA: Lang Ma 1800 OPERATION MANUAL( AUTOMATED BLOOD COUNTS AND [...] >32 mL/min Normal Lym# 1.4 10E3/uL 0.6-4.1 [employer] ([facility] NORMAL RANGES Age WBC [...] HCT IS 5% LESS SOURCE FOR DATA: Lang Ma 1800 OPERATION MANUAL( AUTOMATED BLOOD COUNTS AND [...] >32 mL/min Normal MPV 9.2 fL 9.0-13.0 [facility] ([facility] NORMAL RANGES Age [...] >32 mL/min Normal ID Date Data Source [id number] 07/27/2020 11:30:00 [place] [address] OPERATIVE SUMMARYNAME: CALLIE Young DATE OF : 6ATTENDING PHYS: FIDEL MARSHALL MD DATE: 07/27/20 MR#: [id number] PROCEDURE: 07/27/2020RE- OPERATIVE DIAGNOSIS: History of bladder cancer with bilateral hydronephrosis.POST-OPERATIVE DIAGNOSIS: History of bladder cancer with bilateral hydronephrosis.PROCEDURE PERFORMED: 1. Surveillance cystoscopy. 2. Bilateral nephrostomy tube exchange with antegrade nephrostograms.ATTENDING SURGEON: Dr. Fidel Marshall.PHYSICIAN STREETCAR MOTORMAN: EDITH Angulo.ANESTHESIA: Local.ESTIMATED BLOOD LOSS: MinimalCOMPLICATIONS: None.DRAINS: None.DISPOSITION: To the Ambulatory Surgical Unit.CONDITION: Stable.INTRAOPERTATIVE FINDINGS:Bilat eral hydronephrosis, area of tumor recurrence at the level of the trigone, and fibrosis towardsboth ureteral orifices. Both ureteral orifices were not visualized.INDICATIONS FOR PROCEDURE:Mr. Gooy Nuñez is an 84-year-old gentleman with a [...] well as for bilateral nephrostomytube exchanges. [address] [place] [address] OPERATIVE SUMMARYNAME: CALLIE Young DATE OF : 1935TTENDING PHYS: FIDEL MARSHALL MD DATE: 07/27/20 MR#: [id number] OF PROCEDURE:After a detailed informed consent was [...] guidewire. On the right side a 10 Armenian nephrostomy tube wasinserted over the guidewire and [...] 11:07DS: FIDEL MARSHALL MD 08/17/20 16:26 2 [place] [address] OPERATIVE SUMMARYNAME: CALLIE Young DATE OF : 1935TTENDING PHYS: FIDEL MARSHALL MD DATE: 07/27/20 MR#: [id number] Name Value Range Interpretation Code Description Data Izabela rce(s) Supporting Document(s) ID Date Data Source [id number] 07/27/2020 07:17:00 AM EST [facility] Name Value Range Interpretation Code Description Data Izabela rce(s) Supporting Document(s) COMPREHENSIVE METABOLIC PANEL [facility] COMPREHENSIVE METABOLIC PANEL Sodium [Moles/volume] in Serum or Plasma 140 mEq/L 134 - 153 [facility] Potassium [Moles/volume] in Serum or Plasma 5.4 mEq/L 3.6 - 5.0 H [facility] Chloride [Moles/volume] in Serum or Plasma 109 mEq/L 98 - 107 H [facility] Carbon dioxide, total [Moles/volume] in Serum or Plasma 24 MEQ/L 22 - 30 [facility] Glucose [Mass/volume] in Serum or Plasma 98 MG/DL 70 - 99 [facility] BUN 53 MG/DL 7 - 21 H [facility] Creatinine [Mass/volume] in Serum or Plasma 1.9 MG/DL 0.7 - 1.5 H [facility] BUN/CREAT 28 8 - 27 H [facility] Protein [Mass/volume] in Serum or Plasma 7.1 G/DL 6.3 - 8.2 [facility] Albumin [Mass/volume] in Serum or Plasma 3.9 G/DL 3.9 - 5.0 [facility] Globulin [Mass/volume] in Serum by calculation 3.2 GM/DL 2.4 - 3.2 [facility] A/G RATIO 1.2 0.8 - 2.0 [facility] Calcium [Mass/volume] in Serum or Plasma 8.5 MG/DL 8.4 - 10.2 [facility] Bilirubin.total [Mass/volume] in Serum or Plasma <0.7 MG/DL 0.2 - 1.3 [facility] Alkaline phosphatase [Enzymatic activity/volume] in Serum or Plasma 96 U/L 38 - 126 [facility] Aspartate aminotransferase [Enzymatic activity/volume] in Serum or Plasma 20 U/L 5 - 40 [facility] Alanine aminotransferase [Enzymatic activity/volume] in Seru m or Plasma 14 U/L 7 - 56 [facility] Anion gap 3 in Serum or Plasma 7.0 mmol/L 8.0 - 16.0 L [facility] AGE 84 yrs [facility] al NON-AA GFR 36 mL[facility] AMER GFR 44 mL/min [facility] Male GFR In terprentation 20-49 [...] >32 mL/min Normal ID Date Data Source [id number] 07/27/2020 06:51:00 AM EST [facility] ([facility] Name Value Range Interpretation Code Description Data Izabela rce(s) Supporting Document(s) Comprehensive [facility] Laboratory test result [facility] ([facility] Is patient fasting? Y~pt for OR Potassium 5.4 meq/L 3.6-5.0 Above high normal [facility] ([facility] Is patient fasting? Y~pt for OR Sodium 140 meq/L 134-153 [facility] ([facility] Is patient fasting? Y~pt for OR Chloride 109 meq/L 98-107 Above high normal [facility] ([facility] Is patient fasting? Y~pt for OR Co2 24 meq/L 22-30 [facility] ([facility] Is patient fasting? Y~pt for OR Creatinine 1.9 mg/dL 0.7-1.5 Above high normal [facility] ([facility] Is patient fasting? Y~pt for OR Glucose 98 mg/dL 70-99 [facility] ([facility] Is patient fasting? Y~pt for OR BUN 53 mg/dL 7-21 Above high normal [facility] ([facility] Is patient fasting? Y~pt for OR BUN/Creat 28 8-27 Above high normal [facility] ([facility] Is patient fasting? Y~pt for OR Total Protein 7.1 g/dL 6.3-8.2 [facility] ([facility] Is patient fasting? Y~pt for OR Albumin 3.9 g/dL 3.9-5.0 [facility] ([facility] Is patient fasting? Y~pt for OR Globulin 3.2 GM/DL 2.4-3.2 [facility] ([facility] Is patient fasting? Y~pt for OR A/G Ratio 1.2 0.8-2.0 [facility] ([facility] Is patient fasting? Y~pt for OR Calcium 8.5 mg/dL 8.4-10.2 [facility] ([facility] Is patient fasting? Y~pt for OR Alkaline Phos 96 U/L 38-126 [facility] ([facility] Is patient fasting? Y~pt for OR Total Bili Laboratory test result 0.2-1.3 ME [facility] ([facility] Is patient fasting? Y~pt for OR SGPT/Alt 14 U/L 7-56 [facility] ([facility] Is patient fasting? Y~pt for OR Anion Gap 7.0 mmol/L 8.0-16.0 Below low normal [facility] ( [facility] Is patient fasting? Y~pt for OR Sgot/Ast 20 U/L 5-40 [facility] ([facility] Is patient fasting? Y~pt for OR Non-Aa GFR 36 mL/min [facility] ([facility] Is patient fasting? Y~pt for OR Age 84 yrs [facility] ([facility] Is patient fasting? Y~pt for OR Afr Amer GFR 44 mL/min [facility] ([facility] Is patient fasting? Y~pt for OR ID Date Data Source [id number] 07/23/2020 11:00:00 AM EST [facility] Name Value Range Interpretation Code Description Data Izabela [facility](s) Supporting Document(s) SARS coronavirus 2 RNA Not Detected [facility] This lab was ordered by [facility] and reported by [employer]. ID Date Data Source [id number] 07/25/2020 06:14:00 AM EST [facility] Name Value Range Interpretation Code Description Data Izabela rce(s) Supporting Document(s) SARS-CoV-2, JOHANNE Not Detected Not Detected [facility] This nucleic acid amplification test was developed and its performancecharacteristics determined by [facility]. Nucleic acidamplification tests include RT-PCR [...] in this assay. ID Date Data Source [id number] 07/23/2020 11:00:00 AM EST [facility] ([facility] Name Value Range Interpretation Code Description Data Izabela rce(s) Supporting Document(s) Coronavirus Covid-19 Laboratory test result [facility] ([facility] This nucleic acid amplification test was developed and its performance characteristics determined by [employer]. Nucleic acid amplification tests include RT-PCR and [...] in this assay. ID Date Data Source [id number] 07/17/2020 02:03:00 PM EST [facility] ([facility] Name Value Range Interpretation Code Description Data Izabela rce(s) Supporting Document(s) Glu 151 mg/dL 70-110 Above high normal [facility] ([facility] CHRONIC KIDNEY DISEASE STAGING PER [...] 47 mg/dL 8-23 Above high normal [facility] ([facility] CHRONIC KIDNEY DISEASE STAGING [...] 2.3 mg/dL 0.7-1.2 Above high normal [facility] ([facility] CHRONIC KIDNEY DISEASE STAGING [...] mL/min Normal BUN/Creatinine Ratio 20.6 CALC [facility] ([facility] CHRONIC KIDNEY [...] mL/min Normal Co2 25.3 mmol/L 22.0-29.0 [facility] ([facility] CHRONIC KIDNEY DISEASE STAGING [...] mL/min Normal Na 139 mmol/L 136-145 [facility] ([facility] CHRONIC KIDNEY DISEASE STAGING PER [...] 5.5 mmol/L 3.5-5.1 Above high normal [facility] ([facility] CHRONIC KIDNEY DISEASE STAGING PER [...] mL/min Normal CA 9.7 mg/dL 8.6-10.2 [facility] ([facility] CHRONIC KIDNEY DISEASE STAGING [...] mL/min Normal CL 103.3 mmol/L 98.0-107.0 [facility] ([facility] CHRONIC KIDNEY DISEASE STAGING PER [...] mL/min Normal Anion Gap 15 mmol/L [facility] ([facility] CHRONIC KIDNEY DISEASE STAGING [...] and above >32 mL/min Normal eGFR Non-Afr. Ukrainian 25 # [facility] ([facility] CHRONIC KIDNEY DISEASE STAGING PER [...] mL/min Normal eGFR 29 # [facility] ( [facility] CHRONIC KIDNEY DISEASE STAGING PER [...] >32 mL/min Normal ID Date Data Source [id number] 07/10/2020 01:53:00 PM EST [facility] ([facility] Name Value Range Interpretation Code Description Data Izabela rce(s) Supporting Document(s) Glu 115 mg/dL 70-110 Above high normal [facility] ([facility] CHRONIC KIDNEY DISEASE STAGING [...] 59 mg/dL 8-23 Above high normal [facility] ([facility] CHRONIC KIDNEY DISEASE STAGING [...] 2.2 mg/dL 0.7-1.2 Above high normal [facility] ([facility] CHRONIC KIDNEY DISEASE STAGING [...] mL/min Normal BUN/Creatinine Ratio 26.4 CALC [facility] ([facility] CHRONIC KIDNEY [...] mL/min Normal Co2 24.1 mmol/L 22.0-29.0 [facility] ([facility] CHRONIC KIDNEY DISEASE STAGING [...] mL/min Normal CA 9.1 mg/dL 8.6-10.2 [facility] ([facility] CHRONIC KIDNEY DISEASE STAGING [...] 5.8 mmol/L 3.5-5.1 Above high normal [facility] ([facility] CHRONIC KIDNEY DISEASE STAGING [...] mL/min Normal Na 137 mmol/L 136-145 [facility] ([facility] CHRONIC KIDNEY DISEASE [...] mL/min Normal CL 104.8 mmol/L 98.0-107.0 [facility] ([facility] CHRONIC KIDNEY DISEASE [...] mL/min Normal Anion Gap 14 mmol/L [facility] ([facility] CHRONIC KIDNEY DISEASE STAGING [...] mL/min Normal eGFR 31 # [facility] ( [facility] CKD-EPI eGFR Non-Afr. Ukrainian 26 # [facility] ([facility] CKD-EPI ID Date Data Source [id number] 07/06/2020 01:55:00 PM EST [facility] ([facility] Name Value Range Interpretation Code Description Data Izabela rce(s) Supporting Document(s) BUN 52 mg/dL 8-23 Above high normal [facility] ([facility] CHRONIC KIDNEY DISEASE STAGING [...] 121 mg/dL 70-110 Above high normal [facility] ([facility] CHRONIC KIDNEY DISEASE STAGING [...] 2.5 mg/dL 0.7-1.2 Above high normal [facility] ([facility] CHRONIC KIDNEY DISEASE STAGING [...] mL/min Normal BUN/Creatinine Ratio 21.0 CALC [facility] ([facility] CHRONIC KIDNEY DISEASE STAGING PER [...] mL/min Normal Co2 23.6 mmol/L 22.0-29.0 [facility] ([facility] CHRONIC KIDNEY DISEASE STAGING [...] mL/min Normal CA 9.2 mg/dL 8.6-10.2 [facility] ([facility] CHRONIC KIDNEY DISEASE STAGING [...] mL/min Normal Na 136 mmol/L 136-145 [facility] ([facility] CHRONIC KIDNEY DISEASE STAGING PER [...] 6.0 mmol/L 3.5-5.1 Above high normal [facility] ([facility] CHRONIC KIDNEY DISEASE STAGING PER [...] mL/min Normal CL 106.3 mmol/L 98.0-107.0 [facility] ([facility] CHRONIC KIDNEY DISEASE STAGING [...] mL/min Normal eGFR 26 # [facility] ( [facility] CKD-EPI Anion Gap 12 mmol/L [facility] ([facility] CHRONIC KIDNEY DISEASE STAGING PER [...] and above >32 mL/min Normal eGFR Non-Afr. Ukrainian 23 # ARABELLA ([facility] CKD-EPI ID Date Data Source [id number] 07/02/2020 01:47:00 PM EST ARABELLA ([facility] Name Value Range Interpretation Code Description Data Izabela rce(s) Supporting Document(s) Hemoglobin A1c/Hemoglobin.total in Blood 5.9 % 4.40-6.10 ARABELLA ([facility] NORMAL RANGES Age WBC [...] HCT IS 5% LESS SOURCE FOR DATA: Lang Ma 1800 OPERATION MANUAL( AUTOMATED BLOOD COUNTS AND [...] >32 mL/min Normal ID Date Data Source [id number] 07/02/2020 01:47:00 PM ADRIANNA BELL ([facility] Name Value Range Interpretation Code Description Data Izabela rce(s) Supporting Document(s) Creat 2.6 mg/dL 0.7-1.2 Above high normal [facility] ([facility] NORMAL RANGES Age WBC RBC [...] HCT IS 5% LESS SOURCE FOR DATA: Lang Ma 1800 OPERATION MANUAL( AUTOMATED BLOOD COUNTS AND [...] BUN 52 mg/dL 8-23 Above high normal [facility] ([facility] NORMAL RANGES Age [...] HCT IS 5% LESS SOURCE FOR DATA: Lang Ma 1800 OPERATION MANUAL( AUTOMATED BLOOD COUNTS AND [...] Glu 197 mg/dL 70-110 Above high normal [facility] ([facility] NORMAL RANGES Age WBC [...] HCT IS 5% LESS SOURCE FOR DATA: [facility] DYN 1800 OPERATION MANUAL( AUTOMATED BLOOD COUNTS [...] >32 mL/min Normal BUN/Creatinine Ratio 19.9 CALC [employer] ([facility] NORMAL RANGES [...] HCT IS 5% LESS SOURCE FOR DATA: Lang Ma 1800 OPERATION MANUAL( AUTOMATED BLOOD COUNTS AND [...] >32 mL/min Normal Na 137 mmol/L 136-145 [facility] ([facility] NORMAL RANGES Age WBC [...] HCT IS 5% LESS SOURCE FOR DATA: Lang Ma 1800 OPERATION MANUAL( AUTOMATED BLOOD COUNTS AND [...] HCT IS 5% LESS SOURCE FOR DATA: Lang Ma 1800 OPERATION MANUAL( AUTOMATED BLOOD COUNTS AND [...] >32 mL/min Normal CL 105.5 mmol/L 98.0-107.0 [facility] ([facility] NORMAL RANGES Age WBC RBC HGB [...] HCT IS 5% LESS SOURCE FOR DATA: Lang Ma 1800 OPERATION MANUAL( AUTOMATED BLOOD COUNTS AND [...] HCT IS 5% LESS SOURCE FOR DATA: Lang Ma 1800 OPERATION MANUAL( AUTOMATED BLOOD COUNTS AND [...] HCT IS 5% LESS SOURCE FOR DATA: Lang Ma 1800 OPERATION MANUAL( AUTOMATED BLOOD COUNTS AND [...] >32 mL/min Normal Co2 22.2 mmol/L 22.0-29.0 [facility] NORMAL RANGES Age WBC [...] HCT IS 5% LESS SOURCE FOR DATA: Lang Ma 1800 OPERATION MANUAL( AUTOMATED BLOOD COUNTS AND [...] >32 mL/min Normal A/G Ratio 1.8 CALC [facility] ([facility] NORMAL [...] HCT IS 5% LESS SOURCE FOR DATA: Lang Ma 1800 OPERATION MANUAL( AUTOMATED BLOOD COUNTS AND [...] >32 mL/min Normal Alb 4.2 g/dL 3.5-5.2 [facility] ([facility] NORMAL RANGES Age WBC [...] HCT IS 5% LESS SOURCE FOR DATA: Lang Ma 1800 OPERATION MANUAL( AUTOMATED BLOOD COUNTS AND [...] >32 mL/min Normal Alp 93.5 U/L 40-129 [facility] NORMAL RANGES Age WBC [...] >32 mL/min Normal Globulin 2.3 CALC [facility] ([facility] NORMAL RANGES Age WBC [...] HCT IS 5% LESS SOURCE FOR DATA: Lang Ma 1800 OPERATION MANUAL( AUTOMATED BLOOD COUNTS AND [...] mL/min Normal Alt (SGPT) 10 U/L 0-41 [facility] ([facility] NORMAL RANGES Age WBC RBC [...] HCT IS 5% LESS SOURCE FOR DATA: Lang Ma 1800 OPERATION MANUAL( AUTOMATED BLOOD COUNTS AND [...] mL/min Normal Ast (Sgot) 13 U/L 0-40 [facility] ([facility] NORMAL RANGES Age [...] HCT IS 5% LESS SOURCE FOR DATA: Lang Ma 1800 OPERATION MANUAL( AUTOMATED BLOOD COUNTS AND [...] HCT IS 5% LESS SOURCE FOR DATA: Lang Ma 1800 OPERATION MANUAL( AUTOMATED BLOOD COUNTS AND [...] >32 mL/min Normal Tbili 0.20 mg/dL 0.0-1.2 [facility] ([facility] NORMAL RANGES Age WBC [...] HCT IS 5% LESS SOURCE FOR DATA: Lang Ma 1800 OPERATION MANUAL( AUTOMATED BLOOD COUNTS AND [...] HCT IS 5% LESS SOURCE FOR DATA: Lang Ma 1800 OPERATION MANUAL( AUTOMATED BLOOD COUNTS AND [...] >32 mL/min Normal Anion Gap 15 mmol/L [facility] ([facility] NORMAL RANGES [...] HCT IS 5% LESS SOURCE FOR DATA: Lang Ma 1800 OPERATION MANUAL( AUTOMATED BLOOD COUNTS AND [...] and above >32 mL/min Normal eGFR Non-Afr. Ukrainian 22 # [facility] ([facility] NORMAL RANGES Age WBC [...] HCT IS 5% LESS SOURCE FOR DATA: Lang Ma 1800 OPERATION MANUAL( AUTOMATED BLOOD COUNTS AND [...] >32 mL/min Normal ID Date Data Source [id number] 07/02/2020 01:47:00 PM EST [facility] ([facility] Name Value Range Interpretation Code Description Data Izabela rce(s) Supporting Document(s) WBC 3.9 10E3/uL 4.1-10.9 Below low normal [facility] ([facility] NORMAL RANGES Age WBC RBC [...] RBC 3.46 10E6/uL 4.20-6.30 Below low normal [facility] ([facility] NORMAL RANGES Age WBC [...] HCT IS 5% LESS SOURCE FOR DATA: Lang Ma 1800 OPERATION MANUAL( AUTOMATED BLOOD COUNTS AND [...] HGB 10.5 g/dL 12.0-18.0 Below low normal [facility] ( [facility] NORMAL RANGES [...] HCT IS 5% LESS SOURCE FOR DATA: Lang Ma 1800 OPERATION MANUAL( AUTOMATED BLOOD COUNTS AND [...] HCT 32.9 % 37.0-51.0 Below low normal [facility] ( [facility] NORMAL RANGES [...] HCT IS 5% LESS SOURCE FOR DATA: Lang Ma 1800 OPERATION MANUAL( AUTOMATED BLOOD COUNTS AND [...] HCT IS 5% LESS SOURCE FOR DATA: Lang Ma 1800 OPERATION MANUAL( AUTOMATED BLOOD COUNTS AND [...] HCT IS 5% LESS SOURCE FOR DATA: Lang Ma 1800 OPERATION MANUAL( AUTOMATED BLOOD COUNTS AND [...] >32 mL/min Normal MCHC 31.9 g/dL 31.0-36.0 [facility] ([facility] NORMAL RANGES [...] HCT IS 5% LESS SOURCE FOR DATA: Lang Ma 1800 OPERATION MANUAL( AUTOMATED BLOOD COUNTS AND [...] Normal PLT 313 10E3/uL 140-440 [facility] ([facility] NORMAL RANGES Age WBC RBC [...] HCT IS 5% LESS SOURCE FOR DATA: Lang Ma 1800 OPERATION MANUAL( AUTOMATED BLOOD COUNTS AND [...] >32 mL/min Normal Lym% 28.9 % 10.0-58.5 [facility] ([facility] NORMAL RANGES Age WBC [...] HCT IS 5% LESS SOURCE FOR DATA: Lang Ma 1800 OPERATION MANUAL( AUTOMATED BLOOD COUNTS AND [...] >32 mL/min Normal RDW-CV 13.5 % 11.5-14.5 [facility] ([facility] NORMAL RANGES Age WBC [...] HCT IS 5% LESS SOURCE FOR DATA: Lang Ma 1800 OPERATION MANUAL( AUTOMATED BLOOD COUNTS AND [...] >32 mL/min Normal Neut% 59.8 % 37.0-92.0 [facility] ([facility] NORMAL [...] HCT IS 5% LESS SOURCE FOR DATA: Lang Ma 1800 OPERATION MANUAL( AUTOMATED BLOOD COUNTS AND [...] >32 mL/min Normal MXD% 11.3 % 0.1-24.0 [facility] ([facility] NORMAL RANGES Age [...] HCT IS 5% LESS SOURCE FOR DATA: Lang Ma 1800 OPERATION MANUAL( AUTOMATED BLOOD COUNTS AND [...] >32 mL/min Normal Lym# 1.1 10E3/uL 0.6-4.1 [facility] ([facility] NORMAL RANGES Age WBC [...] HCT IS 5% LESS SOURCE FOR DATA: Lang Ma 1800 OPERATION MANUAL( AUTOMATED BLOOD COUNTS AND [...] >32 mL/min Normal MXD# 0.4 10E3/uL 0.0-1.8 [facility] ([facility] NORMAL RANGES Age WBC [...] HCT IS 5% LESS SOURCE FOR DATA: Lang Ma 1800 OPERATION MANUAL( AUTOMATED BLOOD COUNTS AND [...] HCT IS 5% LESS SOURCE FOR DATA: Lang Ma 1800 OPERATION MANUAL( AUTOMATED BLOOD COUNTS AND [...] HCT IS 5% LESS SOURCE FOR DATA: Lang Ma 1800 OPERATION MANUAL( AUTOMATED BLOOD COUNTS AND [...] >32 mL/min Normal ID Date Data Source [id number] 06/25/2020 09:50:54 PM [facility] Name Value Range Interpretation Code Description Data Izabela rce(s) Supporting Document(s) Discharge Summary [facility] GDYJCp6fPqHERdKp51/OGCzkEMFpu0CjXWffIWj5CEjdMMVyF1KjZLP4aE3wWKM3SDeCZeWnGuRlEQKs lbm ZeVvtUEqDaXWCeOszVPaJnDDhpVigznTUeFO2FwXK2GVNmD31tMGZtRHTfB0YgFAX4WoJ+Lw2SCDFvsH QdLS7HRnaA2R7KaptFDx3eXE4SIxixHiWThvdlEI5FM2FaVNaU9W0K5ZyXOINDyDTPbWpNo559ho5oLR 5wwC6oBJYlnqlhZ7R9P60Carofz+Vn7Z3CIbHi4bhz VmIyF3/9o0n1pvbv7a4ELlDHfFU1WxWU/qsrf/vBD9fi+D3nekni+jMgqEvq7KOR7IaUqgXvzeE2to4O ++kq1KEjiw7PI/Pc8damO+FKFfuh++E017E0A+H9mSu0X67rOR1kPQ+Ui0qgtIsIiH5LR6iHXwdBTvvz aB9b94uPt1pwKiggDGlzx9lGhXlmnp6abo7in5gg0k Vick/zd7edbagMnILlleAQjgbEGtoEO/Hzgmjyh83RKbLrJvzbLwtPX+UOcsm4lgDMEeg4JbgagqRWfTvl [file] vp publisher development+srYP2shBxi5fzBvhxcQhzIryufz2PlZM2FsHCcjl/ah807/adUcD+o+ZVGFGrLDnOaatsMGHBPtVj [file] cgMCBSDQogICAgICAvRjIgMjAgMCBSDQogICAgICAvRjMgMjMgMCBSDQogICAgICAvRjQgMjYgMCBSPj 6DSyVuTAOxHZ9zprEdsPT6GQV+Qd9CPZMuXZ7CkQXMQ8XvuZJnDFsxK8UVAO4GEXR0EF1JqZHxUK5RjB ZDR6CqwOKrLd5oNWFms5BgQj6dY4HHRXCBMTLvFGlr YMbsWXZbAWh3O5C7IAOxF3ULL258aXUroFz8Pb7nY2JGKJeVNvBxUYuqOEssXUMtVAf2R5J0YAEnA3LN N0AbRaMnunCwN2Y+TeFxIMTQGD3ZDPJQGMd8X7P3mSMsN8U8aJoJrJK3XS3GKI4EtYTshXYst89+PiAN OuVkHAWsP1EFXNKJPzNuKQcdEYujAFRtSNb4Y9B9IF VvY7ICD3szE0f6UB9+KkCEJcOmTWXvXv5ZQvKeAp3OLxGzSH1kaf2QZerkEUQuOveTPzz0V7gjpdr0qA FkUfU8Q1M7DyG4fNKpRQ3EC4J0tUYmIXK2HAQdjBA+Px5Ot9AnKIJuTZd9J1uzADCzMBYkPiNhpO84J+ +3lalahYX4K0d0GICCtJThlVrLjoBdQ3gOEEH7u9Q2 ZCc/Yq5BIGT6wQv8zIKdIPOeHEd4kU5ogJh1ZjQtKK48PRGwIColyP5jIkn2N6Huh0BnTu4yCn3chNDv Rq6KHaPkZMX2flDkFsBQLaR4bKbvfbesRSS0W6q4iFJ9Dn35n1wptbDze5FpQvR4RFskMDPcVwGtjdAv HFY3nwJmmU7pcxRoEf8IMLDgJUxjnfOfVmZWZg8ACj PjHF62MvmqqJ3tbVZ+DQogICAgICAgICAgICAgICAgICAgICAgICAgICAgICAgICAgICAgICAgICAgIC AgICAgICAgICAgICAgICAgICAgICAgICAgICAgICAgICAgICAgICAgICAgICAgICAgICAgICAgDQogIC AgICAgICAgICAgICAgICAgICAgICAgICAgICAgICAg ICAgICAgICAgICAgICAgICAgICAgICAgICAgICAgICAgICAgICAgICAgICAgICAgICAgICAgICAgICAg ICAgICAgDQogICAgICAgICAgICAgICAgICAgICAgICAgICAgICAgICAgICAgICAgICAgICAgICAgICAg ICAgICAgICAgICAgICAgICAgICAgICAgICAgICAgIC AgICAgICAgICAgICAgICAgDQogICAgICAgICAgICAgICAgICAgICAgICAgICAgICAgICAgICAgICAgIC AgICAgICAgICAgICAgICAgICAgICAgICAgICAgICAgICAgICAgICAgICAgICAgICAgICAgICAgICAgDQ ogICAgICAgICAgICAgICAgICAgICAgICAgICAgICAg ICAgICAgICAgICAgICAgICAgICAgICAgICAgICAgICAgICAgICAgICAgICAgICAgICAgICAgICAgICAg ICAgICAgICAgDQogICAgICAgICAgICAgICAgICAgICAgICAgICAgICAgICAgICAgICAgICAgICAgICAg ICAgICAgICAgICAgICAgICAgICAgICAgICAgICAgIC AgICAgICAgICAgICAgICAgICAgDQogICAgICAgICAgICAgICAgICAgICAgICAgICAgICAgICAgICAgIC AgICAgICAgICAgICAgICAgICAgICAgICAgICAgICAgICAgICAgICAgICAgICAgICAgICAgICAgICAgIC AgDQogICAgICAgICAgICAgICAgICAgICAgICAgICAg ICAgICAgICAgICAgICAgICAgICAgICAgICAgICAgICAgICAgICAgICAgICAgICAgICAgICAgICAgICAg ICAgICAgICAgICAgDQogICAgICAgICAgICAgICAgICAgICAgICAgICAgICAgICAgICAgICAgICAgICAg ICAgICAgICAgICAgICAgICAgICAgICAgICAgICAgIC AgICAgICAgICAgICAgICAgICAgICAgDQogICAgICAgICAgICAgICAgICAgICAgICAgICAgICAgICAgIC AgICAgICAgICAgICAgICAgICAgICAgICAgICAgICAgICAgICAgICAgICAgICAgICAgICAgICAgICAgIC VhUPZwIYl6N2onEDBtIVYfVF4iLXt1Um1+DQoNCmVu OPD5zsVkyE1UJJ1na5WmKSugEAQaq1AuOGi2LM8AEWXlZHldRY4KGMbzwl4CRBJiVOLjwJSUf7cvZeNb KYH2BCWuVrnzGK9AMCLgO8djtfCqCVGxUJXGPWvcKONPQCjxOLUEGPLcEURnYnKeFLybTK0Op2GetEJ5 DQo+Om6CWI0ut9CmIHftPTOlGR5kav4YVYgXNkJuK9 RgxcF9TIGmRRTeDd9ANOFiKRSglUWlSRLhOPWFUkLnL7DroY86XSALQy0+DQplbmRvYmoNCjMwIDAgb2 LbVEv5RT3XIODqTWs0kBSnFFfxZ7ydrvusINN2oO0qlccuYbaiIWFsDcXQEB2wnzRhcLgfNL8DIWF9YS AxHc7gNYRiJNXnTyI6CNFVXC5OIFFbSNRgcXNvHTRb CRBNIT3KZKxkLAV9JQBoolMppFVxHZykAE6DBYQjlkIcUxdiHLJNQFs+Sb4EKY2az0BbMXniSOYpEH8n is5TSBxLPdRxH3X5cDEhE4A4LRdeDk7DMLPaBVAcMlorUYKTLCvyQK2SZZ8fqqQ4LU5SvAErRDFoAXKc oLJqMIx3J16jrUGsYOpkGV4SBVN+Jocelyn+Cx7IIVDcQI GcAUExBaByEZUSRzErM9EtS1HSg7WzK6CeNM30vTxrkqNyOWugYT3UCP8yJQVlWDYUKP5JvSAfsD2aob YkAAKqLHJDVbZxE79dbSKeLOUdGKG5CYYzYf0GRUViS8FxtgMzaYuekoLyIFMdENSEHJ5OWTlewyGwfY QxrAijMA05zRrwLL0KLl5GGgIsJS2uvy6EpFQtDt1O CNClGd7ZWUDcGPVqILYaOQH4HTXrBiZbGFwfYFRpKDSiSWM3QBIkYJBsAE1KSpSoRPEmEuQ1SDuxPPYn BSUrmq4OOQVfZJMcRQv4CeStAJRlKPWuMDjmNSZaRTVrRHI8BQGjFBQwPS5WAvWrFDWaFMW6VlOhIMHc RHYxmw8VVQDiYHDkGmr3YKIgKMUgGILmQXgpZJBiJG Z1Nnp7DEClVLOgQE7UJaBiGMBiYLs8ZQNwAUJbELJpof5OUIAkWDNmRNKvXmTiMVMbPVUvRYqcCLLyEI S5ApU9MTPoAZGxKB0HSyTkJEWjKOosNIkkLLXcPSPoin6KAEMmJCYuZpEeDaFvYEFuKCZiIMrmAHIcGB A7OYrqNMOvMESpCK4LWcGdPDPbZJlhHbJrDCLsGHQt nx2RJNRaTAQwZLW8OvCdGXNjCDEgIObrODUqLCV7TYGdSVMsQBTrYB4MMqKrCUElIQf2HKZnMJNzBARh pz8AVOMwOTZiHIkgVvFzGXZoDUVnKHqrZVAhNFKvDZKiJBEuVFNjGU1VTrCsUZPjJnBkZqQuXPAaJQLi kl8CPLNcUHJzPBU1RTRpMKLyHBFgPCimYNNeDHSjZn N5JXEtCWVyGY4FCrAyHWWePtY0VwupAKWxYMLbuu0HMMCnDCWwDmUeXIWtVEZmPESzEPddUSDlETDyBR i0HKBdDLEpNV0HEnWrOUHtIkC6VOOlWMEfYABwqf3LENSvFAPfLtb2RpNfJEMhGMHyTEhfBAFoEIC1BD UvFEWbLYZbTY8BGaQoSAKrMgW7NRryZGCkAORlmb7K KCEsDZQlHPf9LOFtFGIgEPWbXOarLKFiHPS8QXHfCOZeIEDxCF0COdBuGRhmEWMCSni1DSypW8e2FXKw Pl2CE4Ycr9DdEqNjUHKPTRwpWV8newMkBCAeIf0XG9cEXxptWxQ4IWE4NhMaENEgBYP3MTk9XBc5AFnu YBInBjReLw3dYADnXzbtDvFuZLPxKIU8CaDoMfoqMG o3CCN9QMTbZKJ0EiJcIK7SDx9TJcQ6BNU0fMUfHg4PUlIkBLDBSaJnZF4YUWl= ID Date Data Source [id number] 06/20/2020 04:30:28 PM [facility] Value Range Interpretation Code Description Data Izabela rce(s) Supporting Document(s) Glucose [Mass/volume] in Capillary blood by Glucometer 123 mg/dL 70- 140 [facility] ID Date Data Source [id number] 06/20/2020 11:56:29 AM [facility] Value Range Interpretation Code Description Data Izabela rce(s) Supporting Document(s) Glucose [Mass/volume] in Capillary blood by Glucometer 126 mg/dL 70- 140 [facility] ID Date Data Source [id number] 06/20/2020 07:48:40 AM [facility] Value Range Interpretation Code Description Data Izabela rce(s) Supporting Document(s) Glucose [Mass/volume] in Capillary blood by Glucometer 89 mg/dL 70- 140 [facility] ID Date Data Source [id number] 06/20/2020 04:43:53 AM [facility] Value Range Interpretation Code Description Data Izabela rce(s) Supporting Document(s) Bicarbonate [Moles/volume] in Serum 20 mmol/L 22-29 L [facility] Chloride [Moles/volume] in Serum or Plasma 106 mmol/L 98-107 [facility] Creatinine [Mass/volume] in Serum or Plasma 2.84 mg/dL 0.70-1.20 H [facility] Glucose [Mass/volume] in Serum or Plasma 94 mg/dL 70-140 [facility] Potassium [Moles/volume] in Serum or Plasma 4.2 mmol/L 3.4-5.1 [facility] Sodium [Moles/volume] in Serum or Plasma 139 mmol/L 136-145 [facility] Urea nitrogen [Mass/volume] in Serum or Plasma 49 mg/dL 8-23 H [facility] Anion gap 3 in Serum or Plasma 13 mmol/L 8-15 [facility] Osmolality of Serum or Plasma by calculation 301 mosm/kg 275-300 H [facility] Creatinine/Urea nitrogen [Mass Ratio] in Serum or Plasma 17 [facility] Calcium [Mass/volume] in Serum or Plasma 8.0 mg/dL 8.8-10.2 L [facility] Glomerular filtration rate/1.73 sq M pre dicted among non-blacks [Volume Rate/Area] in Serum or Plasma by Creatinine-based formula (MDRD) >6 0 [facility] Glomerular filtration rate/1.73 sq M pre dicted among blacks [Volume Rate/Area] in Serum or Plasma by Creatinine-based formula (MDRD) >60 [facility] ID Date Data Source [id number] 06/20/2020 04:43:53 AM [facility] Name Value Range Interpretation Code Description Data Izabela rce(s) Supporting Document(s) Magnesium [Mass/volume] in Serum or Plasma 1.6 mg/dL 1.6-2.4 [facility] ID Date Data Source [id number] 06/20/2020 04:43:53 AM [facility] Value Range Interpretation Code Description Data Izabela rce(s) Supporting Document(s) Phosphate [Mass/volume] in Serum or Plasma 2.9 mg/dL 2.5-4.5 [facility] ID Date Data Source [id number] 06/20/2020 07:59:30 AM [facility] Name Value Range Interpretation Code Description Data Izabela rce(s) Supporting Document(s) Leukocytes [#/volume] in Blood by Automated count 8.1 10*3/uL 4-10 [facility] Erythrocytes [#/volume] in Blood by Automated count 3.45 10*6/uL 4.6- 6.1 [facility] Hemoglobin [Mass/volume] in Blood 10.6 g/dL 13.5-18 L [facility] Hematocrit [Volume Fraction] of Blood by Automated count 31.6 % 4 1-53 L [facility] Erythrocyte mean corpuscular volume [Entitic volume] by Auto mated count 91.6 fL 80-96 [facility] Erythrocyte mean corpuscular hemoglobin [Entitic mass] by Automated count 30.6 pg 27-33 [facility] Erythrocyte mean corpuscular hemoglobin concentration [Mass/volume] by Automated count 33.4 g/dL 32.0-36.0 [facility] Erythrocyte distribution width [Ratio] by Automated count 13.8 % 11.5-14.5 [facility] Platelets [#/volume] in Blood by Automated count 202 10*3/uL 150-400 [facility] ID Date Data Source [id number] 06/19/2020 09:55:21 PM [facility] Name Value Range Interpretation Code Description Data Izabela rce(s) Supporting Document(s) Glucose [Mass/volume] in Capillary blood by Glucometer 138 mg/dL 70- 140 [facility] ID Date Data Source [id number] 06/19/2020 09:13:48 PM [facility] Name Value Range Interpretation Code Description Data Izabela rce(s) Supporting Document(s) Leukocytes [#/volume] in Blood by Automated count 6.9 10*3/uL 4-10 [facility] Erythrocytes [#/volume] in Blood by Automated count 3.18 10*6/uL 4.6- 6.1 [facility] Hemoglobin [Mass/volume] in Blood 9.9 g/dL 13.5-18 [facility] Hematocrit [Volume Fraction] of Blood by Automated count 29.4 % 4 1-53 L [facility] Erythrocyte mean corpuscular volume [Entitic volume] by Auto mated count 92.6 fL 80-96 [facility] Erythrocyte mean corpuscular hemoglobin [Entitic mass] by Automated count 31.2 pg 27-33 [facility] Erythrocyte mean corpuscular hemoglobin concentration [Mass/volume] by Automated count 33.7 g/dL 32.0-36.0 [facility] Erythrocyte distribution width [Ratio] by Automated count 14.0 % 11.5-14.5 [facility] Platelets [#/volume] in Blood by Automated count 189 10*3/uL 150-400 [facility] Differential cell count method - Blood [facility] Neutrophils/100 leukocytes in Blood by Automated count 66 % [facility] Lymphocytes/100 leukocytes in Blood by Automated count 16 % [facility] Monocytes/100 leukocytes in Blood by Automated count 14 % [facility] Eosinophils/100 leukocytes in Blood by Automated count 3 % [facility] Basophils/100 leukocytes in Blood by Automated count 1 % [facility] Neutrophils [#/volume] in Blood by Automated count 4.62 10*3/uL 1.8-7 .0 [facility] Lymphocytes [#/volume] in Blood by Automated count 1.08 10*3/uL 1.2-4 .0 L [facility] Monocytes [#/volume] in Blood by Automated count 0.97 10*3/uL 0-0.8 H [facility] Eosinophils [#/volume] in Blood by Automated count 0.19 10*3/uL 0-0.5 [facility] Basophils [#/volume] in Blood by Automated count 0.04 10*3/uL 0-0.2 [facility] Nucleated erythrocytes/100 leukocytes [Ratio] in Blood by Automated count 0 /100{WBCs} 0-0 [facility] ID Date Data Source [id number] 06/19/2020 06:49:27 PM [facility] Name Value Range Interpretation Code Description Data Izabela rce(s) Supporting Document(s) Magnesium [Mass/volume] in Serum or Plasma 1.7 mg/dL 1.6-2.4 [facility] ID Date Data Source [id number] 06/19/2020 06:49:27 PM [facility] Name Value Range Interpretation Code Description Data Izabela rce(s) Supporting Document(s) Bicarbonate [Moles/volume] in Serum 19 mmol/L 22-29 L [facility] Chloride [Moles/volume] in Serum or Plasma 105 mmol/L 98-107 [facility] Creatinine [Mass/volume] in Serum or Plasma 2.86 mg/dL 0.70-1.20 H [facility] Glucose [Mass/volume] in Serum or Plasma 135 mg/dL 70-140 [facility] Potassium [Moles/volume] in Serum or Plasma 4.1 mmol/L 3.4-5.1 [facility] Sodium [Moles/volume] in Serum or Plasma 138 mmol/L 136-145 [facility] Urea nitrogen [Mass/volume] in Serum or Plasma 51 mg/dL 8-23 H [facility] Anion gap 3 in Serum or Plasma 14 mmol/L 8-15 [facility] Osmolality of Serum or Plasma by calculation 301 mosm/kg 275-300 H [facility] Creatinine/Urea nitrogen [Mass Ratio] in Serum or Plasma 18 [facility] Calcium [Mass/volume] in Serum or Plasma 8.1 mg/dL 8.8-10.2 L [facility] Glomerular filtration rate/1.73 sq M pre dicted among non-blacks [Volume Rate/Area] in Serum or Plasma by Creatinine-based formula (MDRD) >6 0 [facility] Glomerular filtration rate/1.73 sq M pre dicted among blacks [Volume Rate/Area] in Serum or Plasma by Creatinine-based formula (MDRD) >60 [facility] ID Date Data Source [id number] 06/19/2020 06:49:27 PM [facility] Value Range Interpretation Code Description Data Izabela rce(s) Supporting Document(s) Phosphate [Mass/volume] in Serum or Plasma 3.0 mg/dL 2.5-4.5 [facility] ID Date Data Source [id number] 06/19/2020 04:56:13 PM [facility] Value Range Interpretation Code Description Data Izabela rce(s) Supporting Document(s) Glucose [Mass/volume] in Capillary blood by Glucometer 125 mg/dL 70- 140 [facility] ID Date Data Source [id number] 06/19/2020 11:34:14 AM [facility] Value Range Interpretation Code Description Data Izabela rce(s) Supporting Document(s) Glucose [Mass/volume] in Capillary blood by Glucometer 97 mg/dL 70- 140 [facility] ID Date Data Source [id number] 06/19/2020 08:54:24 AM [facility] Value Range Interpretation Code Description Data Izabela rce(s) Supporting Document(s) Calcium.ionized [Moles/volume] in Arterial blood 1.07 mmol/L 1.13-1.3 2 [facility] Center ID Date Data Source [id number] 06/19/2020 07:58:59 AM [facility] Value Range Interpretation Code Description Data Izabela rce(s) Supporting Document(s) Glucose [Mass/volume] in Capillary blood by Glucometer 95 mg/dL 70- 140 [facility] ID Date Data Source [id number] 06/19/2020 04:54:58 AM EST [facility] Hospital Name Value Range Interpretation Code Description Data Izabela rce(s) Supporting Document(s) Leukocytes [#/volume] in Blood by Automated count 7.3 10*3/uL 4-10 [facility] Erythrocytes [#/volume] in Blood by Automated count 3.48 10*6/uL 4.6- 6.1 L [facility] Hemoglobin [Mass/volume] in Blood 10.7 g/dL 13.5-18 L [facility] Hematocrit [Volume Fraction] of Blood by Automated count 32.4 % 4 1-53 L [facility] Erythrocyte mean corpuscular volume [Entitic volume] by Auto mated count 93.1 fL 80-96 [facility] Erythrocyte mean corpuscular hemoglobin [Entitic mass] by Automated count 30.8 pg 27-33 [facility] Erythrocyte mean corpuscular hemoglobin concentration [Mass/volume] by Automated count 33.1 g/dL 32.0-36.0 [facility] E[facility]throcyte distribution width [Ratio] by Automated count 14.5 % 11.5-14.5 [facility] Platelets [#/volume] in Blood by Automated count 202 10*3/uL 150-400 [facility] Differential cell count method - Blood [facility] Neutrophils/100 leukocytes in Blood by Automated count 64 % [facility] Lymphocytes/100 leukocytes in Blood by Automated count 17 % [facility] Monocytes/100 leukocytes in Blood by Automated count 14 % [facility] Eosinophils/100 leukocytes in Blood by Automated count 4 % [facility] Basophils/100 leukocytes in Blood by Automated count 1 % [facility] Neutrophils [#/volume] in Blood by Automated count 4.68 10*3/uL 1.8-7 .0 [facility] Lymphocytes [#/volume] in Blood by Automated count 1.27 10*3/uL 1.2-4 .0 [facility] Monocytes [#/volume] in Blood by Automated count 1.04 10*3/uL 0-0.8 H [facility] Eosinophils [#/volume] in Blood by Automated count 0.28 10*3/uL 0-0.5 [facility] Basophils [#/volume] in Blood by Automated count 0.04 10*3/uL 0-0.2 [facility] Nucleated erythrocytes/100 leukocytes [Ratio] in Blood by Automated count 0 /100{WBCs} 0-0 [facility] ID Date Data Source [id number] 06/19/2020 05:13:02 AM [facility] Value Range Interpretation Code Description Data Izabela rce(s) Supporting Document(s) Bicarbonate [Moles/volume] in Serum 18 mmol/L 22-29 L [facility] Chloride [Moles/volume] in Serum or Plasma 105 mmol/L 98-107 [facility] Creatinine [Mass/volume] in Serum or Plasma 3.07 mg/dL 0.70-1.20 H [facility] Glucose [Mass/volume] in Serum or Plasma 142 mg/dL 70-140 H [facility] Potassium [Moles/volume] in Serum or Plasma 3.5 mmol/L 3.4-5.1 [facility] Sodium [Moles/volume] in Serum or Plasma 133 mmol/L 136-145 L [facility] Urea nitrogen [Mass/volume] in Serum or Plasma 48 mg/dL 8-23 H [facility] Anion gap 3 in Serum or Plasma 10 mmol/L 8-15 [facility] Osmolality of Serum or Plasma by calculation 291 mosm/kg 275-300 [facility] Creatinine/Urea nitrogen [Mass Ratio] in Serum or Plasma 16 [facility] Calcium [Mass/volume] in Serum or Plasma 7.7 mg/dL 8.8-10.2 L [facility] Glomerular filtration rate/1.73 sq M pre dicted among non-blacks [Volume Rate/Area] in Serum or Plasma by Creatinine-based formula (MDRD) >6 0 [facility] Glomerular filtration rate/1.73 sq M pre dicted among blacks [Volume Rate/Area] in Serum or Plasma by Creatinine-based formula (MDRD) >60 [facility] ID Date Data Source [id number] 06/19/2020 05:13:02 AM [facility] Name Value Range Interpretation Code Description Data Izabela rce(s) Supporting Document(s) Magnesium [Mass/volume] in Serum or Plasma 1.8 mg/dL 1.6-2.4 [facility] ID Date Data Source [id number] 06/19/2020 05:13:02 AM [facility] Value Range Interpretation Code Description Data Izabela rce(s) Supporting Document(s) Phosphate [Mass/volume] in Serum or Plasma 2.8 mg/dL 2.5-4.5 [facility] ID Date Data Source [id number] 06/18/2020 09:33:02 PM [facility] Value Range Interpretation Code Description Data Izabela rce(s) Supporting Document(s) Glucose [Mass/volume] in Capillary blood by Glucometer 157 mg/dL 70- 140 [facility] ID Date Data Source [id number] 06/18/2020 08:09:53 PM [facility] Value Range Interpretation Code Description Data Izabela rce(s) Supporting Document(s) Glucose [Mass/volume] in Capillary blood by Glucometer 128 mg/dL 70- 140 [facility] ID Date Data Source [id number] 06/18/2020 07:20:48 PM [facility] Value Range Interpretation Code Description Data Izabela rce(s) Supporting Document(s) Magnesium [Mass/volume] in Serum or Plasma 1.9 mg/dL 1.6-2.4 [facility] ID Date Data Source [id number] 06/18/2020 07:20:48 PM [facility] Value Range Interpretation Code Description Data Izabela rce(s) Supporting Document(s) Phosphate [Mass/volume] in Serum or Plasma 3.4 mg/dL 2.5-4.5 [facility] ID Date Data Source [id number] 06/18/2020 07:20:48 PM [facility] Value Range Interpretation Code Description Data Izabela rce(s) Supporting Document(s) Bicarbonate [Moles/volume] in Serum 19 mmol/L 22-29 L [facility] Chloride [Moles/volume] in Serum or Plasma 102 mmol/L 98-107 [facility] Creatinine [Mass/volume] in Serum or Plasma 3.44 mg/dL 0.70-1.20 H [facility] Glucose [Mass/volume] in Serum or Plasma 201 mg/dL 70-140 H [facility] Potassium [Moles/volume] in Serum or Plasma 3.7 mmol/L 3.4-5.1 [facility] Sodium [Moles/volume] in Serum or Plasma 131 mmol/L 136-145 L [facility] Urea nitrogen [Mass/volume] in Serum or Plasma 53 mg/dL 8-23 H [facility] Anion gap 3 in Serum or Plasma 10 mmol/L 8-15 [facility] Osmolality of Serum or Plasma by calculation 292 mosm/kg 275-300 [facility] Creatinine/Urea nitrogen [Mass Ratio] in Serum or Plasma 15 [facility] Calcium [Mass/volume] in Serum or Plasma 7.9 mg/dL 8.8-10.2 L [facility] Glomerular filtration rate/1.73 sq M pre dicted among non-blacks [Volume Rate/Area] in Serum or Plasma by Creatinine-based formula (MDRD) >6 0 [facility] Glomerular filtration rate/1.73 sq M pre dicted among blacks [Volume Rate/Area] in Serum or Plasma by Creatinine-based formula (MDRD) >60 [facility] ID Date Data Source [id number] 06/18/2020 04:44:18 PM [facility] Name Value Range Interpretation Code Description Data Izabela rce(s) Supporting Document(s) Glucose [Mass/volume] in Capillary blood by Glucometer 118 mg/dL 70- 140 [facility] ID Date Data Source [id number] 06/18/2020 12:18:59 PM [facility] Name Value Range Interpretation Code Description Data Izabela rce(s) Supporting Document(s) Glucose [Mass/volume] in Capillary blood by Glucometer 110 mg/dL 70- 140 [facility] ID Date Data Source [id number] 06/18/2020 09:24:44 AM [facility] Value Range Interpretation Code Description Data Izabela rce(s) Supporting Document(s) Bicarbonate [Moles/volume] in Serum 20 mmol/L 22-29 L [facility] Chloride [Moles/volume] in Serum or Plasma 103 mmol/L 98-107 [facility] Creatinine [Mass/volume] in Serum or Plasma 3.49 mg/dL 0.70-1.20 H [facility] Glucose [Mass/volume] in Serum or Plasma 185 mg/dL 70-140 H [facility] Potassium [Moles/volume] in Serum or Plasma 3.6 mmol/L 3.4-5.1 [facility] Sodium [Moles/volume] in Serum or Plasma 134 mmol/L 136-145 L [facility] Urea nitrogen [Mass/volume] in Serum or Plasma 47 mg/dL 8-23 H [facility] Anion gap 3 in Serum or Plasma 10 mmol/L 8-15 [facility] Osmolality of Serum or Plasma by calculation 294 mosm/kg 275-300 [facility] Creatinine/Urea nitrogen [Mass Ratio] in Serum or Plasma 14 [facility] Calcium [Mass/volume] in Serum or Plasma 7.9 mg/dL 8.8-10.2 L [facility] Glomerular filtration rate/1.73 sq M pre dicted among non-blacks [Volume Rate/Area] in Serum or Plasma by Creatinine-based formula (MDRD) >6 0 [facility] Glomerular filtration rate/1.73 sq M pre dicted among blacks [Volume Rate/Area] in Serum or Plasma by Creatinine-based formula (MDRD) >60 [facility] ID Date Data Source [id number] 06/18/2020 09:24:44 AM [facility] Name Value Range Interpretation Code Description Data Izabela rce(s) Supporting Document(s) Magnesium [Mass/volume] in Serum or Plasma 2.0 mg/dL 1.6-2.4 [facility] ID Date Data Source [id number] 06/18/2020 09:24:44 AM [facility] Name Value Range Interpretation Code Description Data Izabela rce(s) Supporting Document(s) Phosphate [Mass/volume] in Serum or Plasma 3.0 mg/dL 2.5-4.5 [facility] ID Date Data Source [id number] 06/18/2020 07:58:07 AM [facility] Value Range Interpretation Code Description Data Izabela rce(s) Supporting Document(s) Glucose [Mass/volume] in Capillary blood by Glucometer 127 mg/dL 70- 140 [facility] ID Date Data Source [id number] 06/18/2020 05:30:36 AM [facility] US RENAL OR AORTA COMPLETE [id number] RE SULTInterpreted by:VALENTIN CaballeroROCEDURE INFORMATION: Exam: US [...] rce(s) Supporting Document(s) ID Date Data Source [id number] 06/18/2020 01:34:15 AM [facility] Name Value Range Interpretation Code Description Data Izabela rce(s) Supporting Document(s) Leukocytes [#/volume] in Blood by Automated count 8.0 10*3/uL 4-10 [facility] Erythrocytes [#/volume] in Blood by Automated count 3.77 10*6/uL 4.6- 6.1 L [facility] Hemoglobin [Mass/volume] in Blood 11.6 g/dL 13.5-18 L [facility] Hematocrit [Volume Fraction] of Blood by Automated count 34.7 % 4 1-53 L [facility] Erythrocyte mean corpuscular volume [Entitic volume] by Auto mated count 92.0 fL 80-96 [facility] Erythrocyte mean corpuscular hemoglobin [Entitic mass] by Automated count 30.7 pg 27-33 [facility] Erythrocyte mean corpuscular hemoglobin concentration [Mass/volume] by Automated count 33.4 g/dL 32.0-36.0 [facility] Erythrocyte distribution width [Ratio] by Automated count 14.2 % 11.5-14.5 [facility] Platelets [#/volume] in Blood by Automated count 207 10*3/uL 150-400 [facility] Differential cell count method - Blood [facility] Neutrophils/100 leukocytes in Blood by Automated count 69 % [facility] Lymphocytes/100 leukocytes in Blood by Automated count 14 % [facility] Monocytes/100 leukocytes in Blood by Automated count 14 % [facility] Eosinophils/100 leukocytes in Blood by Automated count 3 % [facility] Basophils/100 leukocytes in Blood by Automated count 0 % [facility] Neutrophils [#/volume] in Blood by Automated count 5.62 10*3/uL 1.8-7 .0 [facility] Lymphocytes [#/volume] in Blood by Automated count 1.08 10*3/uL 1.2-4 .0 L [facility] Monocytes [#/volume] in Blood by Automated count 1.08 10*3/uL 0-0.8 H [facility] Eosinophils [#/volume] in Blood by Automated count 0.20 10*3/uL 0-0.5 [facility] Basophils [#/volume] in Blood by Automated count 0.02 10*3/uL 0-0.2 [facility] Nucleated erythrocytes/100 leukocytes [Ratio] in Blood by Automated count 0 /100{WBCs} 0-0 [facility] ID Date Data Source [id number] 06/18/2020 02:05:11 AM [facility] Name Value Range Interpretation Code Description Data Izabela rce(s) Supporting Document(s) Bicarbonate [Moles/volume] in Serum 18 mmol/L 22-29 L [facility] Chloride [Moles/volume] in Serum or Plasma 106 mmol/L 98-107 [facility] Creatinine [Mass/volume] in Serum or Plasma 3.69 mg/dL 0.70-1.20 H [facility] Glucose [Mass/volume] in Serum or Plasma 110 mg/dL 70-140 [facility] Potassium [Moles/volume] in Serum or Plasma 4.0 mmol/L 3.4-5.1 [facility] Sodium [Moles/volume] in Serum or Plasma 135 mmol/L 136-145 L [facility] Urea nitrogen [Mass/volume] in Serum or Plasma 53 mg/dL 8-23 H [facility] Anion gap 3 in Serum or Plasma 11 mmol/L 8-15 [facility] Osmolality of Serum or Plasma by calculation 294 mosm/kg 275-300 [facility] Creatinine/Urea nitrogen [Mass Ratio] in Serum or Plasma 14 [facility] Calcium [Mass/volume] in Serum or Plasma 7.8 mg/dL 8.8-10.2 L [facility] Glomerular filtration rate/1.73 sq M pre dicted among non-blacks [Volume Rate/Area] in Serum or Plasma by Creatinine-based formula (MDRD) >6 0 [facility] Glomerular filtration rate/1.73 sq M pre dicted among blacks [Volume Rate/Area] in Serum or Plasma by Creatinine-based formula (MDRD) >60 [facility] ID Date Data Source [id number] 06/18/2020 02:05:11 AM [facility] Value Range Interpretation Code Description Data Izabela rce(s) Supporting Document(s) Phosphate [Mass/volume] in Serum or Plasma 3.8 mg/dL 2.5-4.5 [facility] ID Date Data Source [id number] 06/18/2020 02:05:11 AM [facility] Value Range Interpretation Code Description Data Izabela rce(s) Supporting Document(s) Magnesium [Mass/volume] in Serum or Plasma 2.1 mg/dL 1.6-2.4 [facility] ID Date Data Source [id number] 06/17/2020 09:31:47 PM [facility] Value Range Interpretation Code Description Data Izabela rce(s) Supporting Document(s) Glucose [Mass/volume] in Capillary blood by Glucometer 111 mg/dL 70- 140 [facility] ID Date Data Source [id number] 06/17/2020 05:34:58 PM [facility] Value Range Interpretation Code Description Data Izabela rce(s) Supporting Document(s) Magnesium [Mass/volume] in Serum or Plasma 2.4 mg/dL 1.6-2.4 [facility] ID Date Data Source [id number] 06/17/2020 05:34:58 PM [facility] Value Range Interpretation Code Description Data Izabela rce(s) Supporting Document(s) Bicarbonate [Moles/volume] in Serum 21 mmol/L 22-29 L [facility] Chloride [Moles/volume] in Serum or Plasma 105 mmol/L 98-107 [facility] Creatinine [Mass/volume] in Serum or Plasma 4.18 mg/dL 0.70-1.20 H [facility] Glucose [Mass/volume] in Serum or Plasma 111 mg/dL 70-140 [facility] Potassium [Moles/volume] in Serum or Plasma 4.5 mmol/L 3.4-5.1 [facility] Sodium [Moles/volume] in Serum or Plasma 137 mmol/L 136-145 [facility] Urea nitrogen [Mass/volume] in Serum or Plasma 57 mg/dL 8-23 H [facility] Anion gap 3 in Serum or Plasma 11 mmol/L 8-15 [facility] Osmolality of Serum or Plasma by calculation 300 mosm/kg 275-300 [facility] Creatinine/Urea nitrogen [Mass Ratio] in Serum or Plasma 14 [facility] Calcium [Mass/volume] in Serum or Plasma 7.9 mg/dL 8.8-10.2 L [facility] Glomerular filtration rate/1.73 sq M pre dicted among non-blacks [Volume Rate/Area] in Serum or Plasma by Creatinine-based formula (MDRD) >6 0 [facility] Glomerular filtration rate/1.73 sq M pre dicted among blacks [Volume Rate/Area] in Serum or Plasma by Creatinine-based formula (MDRD) >60 [facility] ID Date Data Source [id number] 06/17/2020 05:34:58 PM [facility] Name Value Range Interpretation Code Description Data Izabela rce(s) Supporting Document(s) Phosphate [Mass/volume] in Serum or Plasma 4.1 mg/dL 2.5-4.5 [facility] ID Date Data Source [id number] 06/17/2020 04:53:19 PM [facility] Name Value Range Interpretation Code Description Data Izabela rce(s) Supporting Document(s) Glucose [Mass/volume] in Capillary blood by Glucometer 105 mg/dL 70- 140 [facility] ID Date Data Source [id number] 06/17/2020 01:12:43 PM [facility] Value Range Interpretation Code Description Data Izabela rce(s) Supporting Document(s) [facility] KZAIDf7zHvEXNyJi05/UEZkmJVMsr3NtKGokIOt3IJmeGXSlP2ChNRR0vQ3cOJT4OVpBRrUhUuPvNOJy lbm [file] ZIHAYRIPFVK+7WDcwRcsXi+g4urWZYKWY1jDTC530w OIh9xZxac/ktBY55ht+0g9GsIQsO8BNb/mOzfdXWj+LLltZoje8zg04dtQRtl381wN+Ewjdrl+iTLq7F PEW6xHHhJGoZIV8u9PK6xfPj7FomiobtvUf3v35bb5Vi5jCRn9DKYloLF3nyfScyqq3d0K63Px4sZWny gsWNMBM7SC14GjF3FB3y+9FGfnOaBshfkulspREicN aXbnKIznSg8+px9YRsX9NIpOpQfR9xle3hnV76+Now+W05n+2+gK9NyNgHIism2yZZf7M3OeVLRXkxH+ En618CqqnQy03xkcEcvO8j2eRKvdGp/7OLfSoQVqV63JPKQMZBVlvrsORtO3LNMq/IoYcUZMCiUZDlB+ PR4n4+889kOXtLq42exxlCYQtVItBMLNtOI1fvo/kR qUrVL8BAjFai/Xt7JBLPhlxwNuvmiEwjy3vy8/FMPMELPtNIPz4NgbvrdVk2izLlBfwQbmystmPF8cUn W2FVozX0KGdcFdQLLBxorU7GeigaXg2CBlI3r8ud+hmUEAPR+rfBoTZjBDNavJlK7WSLwbe94du1z9NZ Y4NPWBUYJvzjeYWU8WWMwR9wfbKQ+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 [file] [id number]== ID Date Data Source [id number] 06/17/2020 11:42:47 AM [facility] Value Range Interpretation Code Description Data Izabela rce(s) Supporting Document(s) Glucose [Mass/volume] in Capillary blood by Glucometer 82 mg/dL 70- 140 [facility] ID Date Data Source [id number] 06/17/2020 07:46:26 AM [facility] Value Range Interpretation Code Description Data Izabela rce(s) Supporting Document(s) Glucose [Mass/volume] in Capillary blood by Glucometer 119 mg/dL 70- 140 [facility] ID Date Data Source [id number] 06/17/2020 08:02:55 AM [facility] Value Range Interpretation Code Description Data Izabela rce(s) Supporting Document(s) Bicarbonate [Moles/volume] in Serum 18 mmol/L 22-29 L [facility] Chloride [Moles/volume] in Serum or Plasma 105 mmol/L 98-107 [facility] Creatinine [Mass/volume] in Serum or Plasma 4.02 mg/dL 0.70-1.20 H [facility] Glucose [Mass/volume] in Serum or Plasma 112 mg/dL 70-140 [facility] Potassium [Moles/volume] in Serum or Plasma 4.0 mmol/L 3.4-5.1 [facility] Sodium [Moles/volume] in Serum or Plasma 136 mmol/L 136-145 [facility] Urea nitrogen [Mass/volume] in Serum or Plasma 54 mg/dL 8-23 H [facility] Anion gap 3 in Serum or Plasma 12 mmol/L 8-15 [facility] Osmolality of Serum or Plasma by calculation 297 mosm/kg 275-300 [facility] Creatinine/Urea nitrogen [Mass Ratio] in Serum or Plasma 13 [facility] Calcium [Mass/volume] in Serum or Plasma 7.8 mg/dL 8.8-10.2 L [facility] Glomerular filtration rate/1.73 sq M pre dicted among non-blacks [Volume Rate/Area] in Serum or Plasma by Creatinine-based formula (MDRD) >6 0 [facility] Glomerular filtration rate/1.73 sq M pre dicted among blacks [Volume Rate/Area] in Serum or Plasma by Creatinine-based formula (MDRD) >60 [facility] ID Date Data Source [id number] 06/17/2020 08:02:55 AM [facility] Name Value Range Interpretation Code Description Data Izabela rce(s) Supporting Document(s) Magnesium [Mass/volume] in Serum or Plasma 2.9 mg/dL 1.6-2.4 H [facility] ID Date Data Source [id number] 06/17/2020 08:02:55 AM [facility] Name Value Range Interpretation Code Description Data Izabela rce(s) Supporting Document(s) Phosphate [Mass/volume] in Serum or Plasma 3.8 mg/dL 2.5-4.5 [facility] ID Date Data Source [id number] 06/17/2020 01:14:12 AM [facility] Name Value Range Interpretation Code Description Data Izabela rce(s) Supporting Document(s) Leukocytes [#/volume] in Blood by Automated count 8.1 10*3/uL 4-10 [facility] Erythrocytes [#/volume] in Blood by Automated count 3.91 10*6/uL 4.6- 6.1 L [facility] Hemoglobin [Mass/volume] in Blood 12.1 g/dL 13.5-18 L [facility] Hematocrit [Volume Fraction] of Blood by Automated count 36.9 % 4 1-53 L [facility] Erythrocyte mean corpuscular volume [Entitic volume] by Auto mated count 94.4 fL 80-96 [facility] Erythrocyte mean corpuscular hemoglobin [Entitic mass] by Automated count 31.0 pg 27-33 [facility] Erythrocyte mean corpuscular hemoglobin concentration [Mass/volume] by Automated count 32.8 g/dL 32.0-36.0 [facility] distribution width [Ratio] by Automated count 14.6 % 11.5-14.5 H [facility] Platelets [#/volume] in Blood by Automated count 201 10*3/uL 150-400 [facility] Differential cell count method - Blood [facility] Neutrophils/100 leukocytes in Blood by Automated count 66 % [facility] Lymphocytes/100 leukocytes in Blood by Automated count 17 % [facility] Monocytes/100 leukocytes in Blood by Automated count 14 % [facility] Eosinophils/100 leukocytes in Blood by Automated count 3 % [facility] Basophils/100 leukocytes in Blood by Automated count 0 % [facility] Neutrophils [#/volume] in Blood by Automated count 5.38 10*3/uL 1.8-7 .0 [facility] Lymphocytes [#/volume] in Blood by Automated count 1.39 10*3/uL 1.2-4 .0 [facility] Monocytes [#/volume] in Blood by Automated count 1.11 10*3/uL 0-0.8 H [facility] Eosinophils [#/volume] in Blood by Automated count 0.21 10*3/uL 0-0.5 [facility] Basophils [#/volume] in Blood by Automated count 0.03 10*3/uL 0-0.2 [facility] Nucleated erythrocytes/100 leukocytes [Ratio] in Blood by Automated count 0 /100{WBCs} 0-0 [facility] ID Date Data Source [id number] 06/17/2020 01:44:49 AM EST [facility] Name Value Range Interpretation Code Description Data Izabela rce(s) Supporting Document(s) Phosphate [Mass/volume] in Serum or Plasma 4.0 mg/dL 2.5-4.5 [facility] ID Date Data Source [id number] 06/17/2020 01:44:49 AM [facility] Name Value Range Interpretation Code Description Data Izabela rce(s) Supporting Document(s) Bicarbonate [Moles/volume] in Serum 17 mmol/L 22-29 L [facility] Chloride [Moles/volume] in Serum or Plasma 106 mmol/L 98-107 [facility] Creatinine [Mass/volume] in Serum or Plasma 4.71 mg/dL 0.70-1.20 H [facility] Glucose [Mass/volume] in Serum or Plasma 117 mg/dL 70-140 [facility] Potassium [Moles/volume] in Serum or Plasma 4.5 mmol/L 3.4-5.1 [facility] Sodium [Moles/volume] in Serum or Plasma 137 mmol/L 136-145 [facility] Urea nitrogen [Mass/volume] in Serum or Plasma 57 mg/dL 8-23 H [facility] Anion gap 3 in Serum or Plasma 14 mmol/L 8-15 [facility] Osmolality of Serum or Plasma by calculation 301 mosm/kg 275-300 H [facility] Creatinine/Urea nitrogen [Mass Ratio] in Serum or Plasma 12 [facility] Calcium [Mass/volume] in Serum or Plasma 7.6 mg/dL 8.8-10.2 [facility] Glomerular filtration rate/1.73 sq M pre dicted among non-blacks [Volume Rate/Area] in Serum or Plasma by Creatinine-based formula (MDRD) >6 0 [facility] Glomerular filtration rate/1.73 sq M pre dicted among blacks [Volume Rate/Area] in Serum or Plasma by Creatinine-based formula (MDRD) >60 [facility] ID Date Data Source [id number] 06/17/2020 01:44:49 AM [facility] Value Range Interpretation Code Description Data Izabela rce(s) Supporting Document(s) Magnesium [Mass/volume] in Serum or Plasma 1.4 mg/dL 1.6-2.4 [facility] ID Date Data Source [id number] 06/16/2020 09:12:35 PM [facility] Value Range Interpretation Code Description Data Izabela rce(s) Supporting Document(s) Glucose [Mass/volume] in Capillary blood by Glucometer 116 mg/dL 70- 140 [facility] ID Date Data Source [id number] 06/16/2020 07:40:51 PM [facility] Value Range Interpretation Code Description Data Izabela rce(s) Supporting Document(s) Bicarbonate [Moles/volume] in Serum 21 mmol/L 22-29 L [facility] Chloride [Moles/volume] in Serum or Plasma 105 mmol/L 98-107 [facility] Creatinine [Mass/volume] in Serum or Plasma 4.89 mg/dL 0.70-1.20 H [facility] Glucose [Mass/volume] in Serum or Plasma 125 mg/dL 70-140 [facility] Potassium [Moles/volume] in Serum or Plasma 4.7 mmol/L 3.4-5.1 [facility] Sodium [Moles/volume] in Serum or Plasma 139 mmol/L 136-145 [facility] Urea nitrogen [Mass/volume] in Serum or Plasma 61 mg/dL 8-23 H [facility] Anion gap 3 in Serum or Plasma 13 mmol/L 8-15 [facility] Osmolality of Serum or Plasma by calculation 307 mosm/kg 275-300 H [facility] Creatinine/Urea nitrogen [Mass Ratio] in Serum or Plasma 13 [facility] Calcium [Mass/volume] in Serum or Plasma 8.0 mg/dL 8.8-10.2 [facility] Glomerular filtration rate/1.73 sq M pre dicted among non-blacks [Volume Rate/Area] in Serum or Plasma by Creatinine-based formula (MDRD) >6 0 [facility] Glomerular filtration rate/1.73 sq M pre dicted among blacks [Volume Rate/Area] in Serum or Plasma by Creatinine-based formula (MDRD) >60 [facility] ID Date Data Source [id number] 06/16/2020 07:40:51 PM [facility] Value Range Interpretation Code Description Data Izabela rce(s) Supporting Document(s) Magnesium [Mass/volume] in Serum or Plasma 1.5 mg/dL 1.6-2.4 [facility] ID Date Data Source [id number] 06/16/2020 07:40:51 PM [facility] Value Range Interpretation Code Description Data Izabela rce(s) Supporting Document(s) Phosphate [Mass/volume] in Serum or Plasma 3.8 mg/dL 2.5-4.5 [facility] ID Date Data Source [id number] 06/16/2020 04:37:53 PM [facility] Name Value Range Interpretation Code Description Data Izabela rce(s) Supporting Document(s) Glucose [Mass/volume] in Capillary blood by Glucometer 105 mg/dL 70- 140 [facility] ID Date Data Source [id number] 06/16/2020 12:53:49 PM [facility] Value Range Interpretation Code Description Data Izabela rce(s) Supporting Document(s) Glucose [Mass/volume] in Capillary blood by Glucometer 157 mg/dL 70- 140 H [facility] ID Date Data Source [id number] 06/16/2020 01:07:16 PM [facility] Value Range Interpretation Code Description Data Izabela rce(s) Supporting Document(s) Magnesium [Mass/volume] in Serum or Plasma 1.6 mg/dL 1.6-2.4 [facility] ID Date Data Source [id number] 06/16/2020 01:07:16 PM [facility] Value Range Interpretation Code Description Data Izabela rce(s) Supporting Document(s) Phosphate [Mass/volume] in Serum or Plasma 4.0 mg/dL 2.5-4.5 [facility] ID Date Data Source [id number] 06/16/2020 01:07:16 PM [facility] Value Range Interpretation Code Description Data Izabela rce(s) Supporting Document(s) Bicarbonate [Moles/volume] in Serum 20 mmol/L 22-29 L [facility] Chloride [Moles/volume] in Serum or Plasma 109 mmol/L 98-107 H [facility] Creatinine [Mass/volume] in Serum or Plasma 5.65 mg/dL 0.70-1.20 H [facility] Glucose [Mass/volume] in Serum or Plasma 152 mg/dL 70-140 H [facility] Potassium [Moles/volume] in Serum or Plasma 4.5 mmol/L 3.4-5.1 [facility] Sodium [Moles/volume] in Serum or Plasma 143 mmol/L 136-145 [facility] Urea nitrogen [Mass/volume] in Serum or Plasma 64 mg/dL 8-23 H [facility] Anion gap 3 in Serum or Plasma 14 mmol/L 8-15 [facility] Osmolality of Serum or Plasma by calculation 317 mosm/kg 275-300 H [facility] Creatinine/Urea nitrogen [Mass Ratio] in Serum or Plasma 11 [facility] Calcium [Mass/volume] in Serum or Plasma 8.1 mg/dL 8.8-10.2 L [facility] Glomerular filtration rate/1.73 sq M pre dicted among non-blacks [Volume Rate/Area] in Serum or Plasma by Creatinine-based formula (MDRD) >6 0 [facility] Glomerular filtration rate/1.73 sq M pre dicted among blacks [Volume Rate/Area] in Serum or Plasma by Creatinine-based formula (MDRD) >60 [facility] ID Date Data Source [id number] 06/16/2020 07:41:26 AM [facility] Name Value Range Interpretation Code Description Data Izabela rce(s) Supporting Document(s) Glucose [Mass/volume] in Capillary blood by Glucometer 121 mg/dL 70- 140 [facility] ID Date Data Source [id number] 06/16/2020 06:42:14 AM [facility] Name Value Range Interpretation Code Description Data Izabela rce(s) Supporting Document(s) Leukocytes [#/volume] in Blood by Automated count 6.0 10*3/uL 4-10 [facility] Erythrocytes [#/volume] in Blood by Automated count 3.96 10*6/uL 4.6- 6.1 L [facility] Hemoglobin [Mass/volume] in Blood 12.2 g/dL 13.5-18 L [facility] Hematocrit [Volume Fraction] of Blood by Automated count 37.0 % 4 1-53 L [facility] Erythrocyte mean corpuscular volume [Entitic volume] by Auto mated count 93.5 fL 80-96 [facility] Erythrocyte mean corpuscular hemoglobin [Entitic mass] by Automated count 30.8 pg 27-33 [facility] Erythrocyte mean corpuscular hemoglobin concentration [Mass/volume] by Automated count 33.0 g/dL 32.0-36.0 [facility]th[facility] distribution width [Ratio] by Automated count 14.2 % 11.5-14.5 [facility] Platelets [#/volume] in Blood by Automated count 217 10*3/uL 150-400 [facility] Differential cell count method - Blood [facility] Neutrophils/100 leukocytes in Blood by Automated count 59 % [facility] Lymphocytes/100 leukocytes in Blood by Automated count 21 % [facility] Monocytes/100 leukocytes in Blood by Automated count 12 % [facility] Eosinophils/100 leukocytes in Blood by Automated count 7 % [facility] Basophils/100 leukocytes in Blood by Automated count 1 % [facility] Neutrophils [#/volume] in Blood by Automated count 3.59 10*3/uL 1.8-7 .0 [facility] Lymphocytes [#/volume] in Blood by Automated count 1.25 10*3/uL 1.2-4 .0 [facility] Monocytes [#/volume] in Blood by Automated count 0.70 10*3/uL 0-0.8 [facility] Eosinophils [#/volume] in Blood by Automated count 0.42 10*3/uL 0-0.5 [facility] Basophils [#/volume] in Blood by Automated count 0.03 10*3/uL 0-0.2 [facility] Nucleated erythrocytes/100 leukocytes [Ratio] in Blood by Automated count 0 /100{WBCs} 0-0 [facility] ID Date Data Source [id number] 06/16/2020 07:53:27 AM [facility] Name Value Range Interpretation Code Description Data Izabela rce(s) Supporting Document(s) Bicarbonate [Moles/volume] in Serum 18 mmol/L 22-29 L [facility] Chloride [Moles/volume] in Serum or Plasma 108 mmol/L 98-107 H [facility] Creatinine [Mass/volume] in Serum or Plasma 5.64 mg/dL 0.70-1.20 H [facility] Glucose [Mass/volume] in Serum or Plasma 124 mg/dL 70-140 [facility] Potassium [Moles/volume] in Serum or Plasma 4.3 mmol/L 3.4-5.1 [facility] Sodium [Moles/volume] in Serum or Plasma 141 mmol/L 136-145 [facility] Urea nitrogen [Mass/volume] in Serum or Plasma 66 mg/dL 8-23 H [facility] Anion gap 3 in Serum or Plasma 14 mmol/L 8-15 [facility] Osmolality of Serum or Plasma by calculation 312 mosm/kg 275-300 H [facility] Creatinine/Urea nitrogen [Mass Ratio] in Serum or Plasma 12 [facility] Calcium [Mass/volume] in Serum or Plasma 7.8 mg/dL 8.8-10.2 L [facility] Glomerular filtration rate/1.73 sq M pre dicted among non-blacks [Volume Rate/Area] in Serum or Plasma by Creatinine-based formula (MDRD) >6 0 [facility] Glomerular filtration rate/1.73 sq M pre dicted among blacks [Volume Rate/Area] in Serum or Plasma by Creatinine-based formula (MDRD) >60 [facility] ID Date Data Source [id number] 06/16/2020 07:53:27 AM [facility] Name Value Range Interpretation Code Description Data Izabela rce(s) Supporting Document(s) Magnesium [Mass/volume] in Serum or Plasma 1.8 mg/dL 1.6-2.4 [facility] ID Date Data Source [id number] 06/16/2020 07:53:27 AM [facility] Name Value Range Interpretation Code Description Data Izabela rce(s) Supporting Document(s) Phosphate [Mass/volume] in Serum or Plasma 4.4 mg/dL 2.5-4.5 [facility] ID Date Data Source [id number] 06/16/2020 01:07:13 AM [facility] Name Value Range Interpretation Code Description Data Izabela rce(s) Supporting Document(s) Bicarbonate [Moles/volume] in Serum 21 mmol/L 22-29 L [facility] Chloride [Moles/volume] in Serum or Plasma 109 mmol/L 98-107 H [facility] Creatinine [Mass/volume] in Serum or Plasma 6.50 mg/dL 0.70-1.20 H [facility] Glucose [Mass/volume] in Serum or Plasma 122 mg/dL 70-140 [facility] Potassium [Moles/volume] in Serum or Plasma 5.0 mmol/L 3.4-5.1 [facility] Sodium [Moles/volume] in Serum or Plasma 142 mmol/L 136-145 [facility] Urea nitrogen [Mass/volume] in Serum or Plasma 74 mg/dL 8-23 H [facility] Anion gap 3 in Serum or Plasma 12 mmol/L 8-15 [facility] Osmolality of Serum or Plasma by calculation 317 mosm/kg 275-300 H [facility] Creatinine/Urea nitrogen [Mass Ratio] in Serum or Plasma 11 [facility] Calcium [Mass/volume] in Serum or Plasma 7.8 mg/dL 8.8-10.2 L [facility] Glomerular filtration rate/1.73 sq M pre dicted among non-blacks [Volume Rate/Area] in Serum or Plasma by Creatinine-based formula (MDRD) >6 0 [facility] Glomerular filtration rate/1.73 sq M pre dicted among blacks [Volume Rate/Area] in Serum or Plasma by Creatinine-based formula (MDRD) >60 [facility] ID Date Data Source [id number] 06/16/2020 01:07:13 AM [facility] Value Range Interpretation Code Description Data Izabela rce(s) Supporting Document(s) Magnesium [Mass/volume] in Serum or Plasma 1.5 mg/dL 1.6-2.4 [facility] ID Date Data Source [id number] 06/16/2020 01:07:13 AM [facility] Value Range Interpretation Code Description Data Izabela rce(s) Supporting Document(s) Phosphate [Mass/volume] in Serum or Plasma 5.2 mg/dL 2.5-4.5 H [facility] ID Date Data Source [id number] 06/15/2020 09:02:35 PM [facility] Value Range Interpretation Code Description Data Izabela rce(s) Supporting Document(s) Glucose [Mass/volume] in Capillary blood by Glucometer 119 mg/dL 70- 140 [facility] ID Date Data Source [id number] 06/15/2020 07:23:22 PM [facility] Value Range Interpretation Code Description Data Izabela rce(s) Supporting Document(s) Magnesium [Mass/volume] in Serum or Plasma 1.7 mg/dL 1.6-2.4 [facility] ID Date Data Source [id number] 06/15/2020 07:23:22 PM [facility] Value Range Interpretation Code Description Data Izabela rce(s) Supporting Document(s) Phosphate [Mass/volume] in Serum or Plasma 5.6 mg/dL 2.5-4.5 H [facility] ID Date Data Source [id number] 06/15/2020 07:23:22 PM [facility] Value Range Interpretation Code Description Data Izabela rce(s) Supporting Document(s) Bicarbonate [Moles/volume] in Serum 20 mmol/L 22-29 [facility] Chloride [Moles/volume] in Serum or Plasma 106 mmol/L 98-107 [facility] Creatinine [Mass/volume] in Serum or Plasma 6.95 mg/dL 0.70-1.20 H [facility] Glucose [Mass/volume] in Serum or Plasma 121 mg/dL 70-140 [facility] Potassium [Moles/volume] in Serum or Plasma 4.8 mmol/L 3.4-5.1 [facility] Sodium [Moles/volume] in Serum or Plasma 144 mmol/L 136-145 [facility] Urea nitrogen [Mass/volume] in Serum or Plasma 80 mg/dL 8-23 H [facility] Anion gap 3 in Serum or Plasma 18 mmol/L 8-15 H [facility] Osmolality of Serum or Plasma by calculation 323 mosm/kg 275-300 H [facility] Creatinine/Urea nitrogen [Mass Ratio] in Serum or Plasma 12 [facility] Calcium [Mass/volume] in Serum or Plasma 8.0 mg/dL 8.8-10.2 L [facility] Glomerular filtration rate/1.73 sq M pre dicted among non-blacks [Volume Rate/Area] in Serum or Plasma by Creatinine-based formula (MDRD) >6 0 [facility] Glomerular filtration rate/1.73 sq M pre dicted among blacks [Volume Rate/Area] in Serum or Plasma by Creatinine-based formula (MDRD) >60 [facility] ID Date Data Source [id number] 06/15/2020 04:48:16 PM [facility] Name Value Range Interpretation Code Description Data Izabela rce(s) Supporting Document(s) Glucose [Mass/volume] in Capillary blood by Glucometer 122 mg/dL 70- 140 [facility] ID Date Data Source [id number] 06/15/2020 03:32:28 PM [facility] Name Value Range Interpretation Code Description Data Izabela rce(s) Supporting Document(s) [facility] [id number]5MNqKWzQjWgMiGFGg [facility] EmTrsOXsKtFVEhTrlFKwVjVDkdKxsklOCfJT0AkZX5BYCvG90jVOUlCEEaN0OuHWQ0RkC+Ou6XDPMcsV QjUU5PTgoN5W1ddgc7Yu6ahK6AqaYnRnqzBzgGd2HaZF6NjvOnUCSg+kGxVo+sNef7DG3/ffcpacarX8 Rmzhz6ATjaJjAvKKluXugnWRhj86Dq8TrFRyo/61+D SImbO/XHa9wSR2naD0a0fa7aJghvdQA0lmTKAI+/sUrDn71hpUVTqCIHAQAa83bveLMZi/Di+hf6MX0X Mm3Sy1l4blyXp9LyCepOm5OFQZgL/eGOH6L0SwpfzF+N6UrHd+Wa8vv+BQZVaSin8aNcrLEpUpr4XmFk 4T132aaUge5OsTwQoyZ/0hSwBrlbjYnDXDhEbw5IjH 95PE6XOgZqL97OrunXwjlnzTu80B05fXMrUF+Sj1b3KEal8Wo930+DKozIa8ETRkEqnCsWxHjlkDz+zF I83AEfUsBa3SS75T/ORbQlq9Z9PyJst5T1QSz8PdM5/Vn0sARla2Om7M0oES0VAGh/ATtPZKn8mn5sBo mrMX2ggj0yGO9082zwoS49ez+custodial/YUuruYDCPFxYN [file] AgICAgICAgICAgICAgICAgICAgICAgICAgICAgICAgICAgICAgICAgICAgICAgICAgICAgICAgICAgIC KcJOLlYXLzDKSiXJVaITPnWZMtODVlVUTjIBPeUD3I ICAgICAgICAgICAgICAgICAgICAgICAgICAgICAgICAgICAgICAgICAgICAgICAgICAgICAgICAgICAg YBTyJMVtCJYdSSFhOYArHBRqPKMgSMNnXODgMMPjDPOcDCQmCOZqWJ0WKKXuZIFnGOZkOZObCEYkKPFy ICAgICAgICAgICAgICAgICAgICAgICAgICAgICAgIC ShBAYmEOKlWCCnPLZgXALcFFXrHYSoVAApDOZfEEVaKEWnYKAqWESpQAZsWNZhQUKrFH8JOGQbTRTpPF AgICAgICAgICAgICAgICAgICAgICAgICAgICAgICAgICAgICAgICAgICAgICAgICAgICAgICAgICAgIC AgICAgICAgICAgICAgICAgICAgICAgICAgICAgICAg JG4LQGKvCJTbVKKeLKVuGFOyZALzSMHqYSGyBFOiDWBtXCZfSIMeZBAbVHLiNHAdOSYrVCEjLNTnPNGh PMKwWPHhVCRkGVSdEGHjDCCcBDPrPLNcFARdJZMuPNQuVDTtWXWuSWDwRZ3ADMCdCGIwUEOoSBLgIZNf ICAgICAgICAgICAgICAgICAgICAgICAgICAgICAgIC OuLZNpFLXmHXSiWBEoQCSlQCOeIBJpTPVqBPQgQSJgYBWoRTStIARyEXWgGOUpQSDgKPZjJR6HPNDmSK AgICAgICAgICAgICAgICAgICAgICAgICAgICAgICAgICAgICAgICAgICAgICAgICAgICAgICAgICAgIC AgICAgICAgICAgICAgICAgICAgICAgICAgICAgICAg QUAuCZ9BIZFhLBWxTTMrBNJpGIHnTNBfBRMgISQxQSOvQIPcJBIxLYQkJLGzQWJoOIQfNJQqKGCyOBIx OXGaVUUdXZEqAAQfEUDxXWHgIVHzDPZgWGQzNJPqRFIrTFShPYIcZRZbTDTpHY6RCMFmQNCiGYIyFQUj ICAgICAgICAgICAgICAgICAgICAgICAgICAgICAgIC XyQGZyCOWyMDYwZQBfCCTvPRLvFULiLUYdNHEzESUjENTwLMNfQKXeCGPrTWMiHMLbRYUmJTWhKF7FZX AgICAgICAgICAgICAgICAgICAgICAgICAgICAgICAgICAgICAgICAgICAgICAgICAgICAgICAgICAgIC AgICAgICAgICAgICAgICAgICAgICAgICAgICAgICAg XMJdMCJdWP0KGO14vQEub6A2XCNtHU7vadv/Oe2AULthztEtmWDzVK3DPoZsYA6lmu7QPiCiGX6kkx4Z AElCIaDmH3P3sTEuJULcVBJCWnUyZ32mUZrsUj25VKrfTETkGeTbVPg6Az5PEpHqK4cqYRMvCeJ8QZBl OzG5GWFwJqM6EBUrQyDyBRKlPCOwACVhSFCZJDV3WX LmHmMeBTnrCX2Rg6MvnJE5WUk+Os5DUX5uy8SsHCbkRWDzPU5qjb5UPXkPLxMoE5CazqO1OLY6NCMrSp 8YPGPuJVYwbKTsDwUeLLWMOkMyL1WrgC41MTBJWi9+GLfjnvGbVymOFcT2QNIpn4RlVCv7JR6HDSTcZN r4uYHiZ22nq6InqZPgAjiiA2obakQjID0wIYSzZMFE TmCETCU3PNQdHC3rEQPeLQVuUkPbWISGCM1AWESzLHJuuUEiCWNvTZPFPC9DJMcyPLX1DZQzmlFvmJWy IEbiBF7WHLLchaYnYvFpFQNNMXa+Mh6PKQ9bi1YrNBqrXkOfGQ0eek4YSQhYPrDyR7G5eRGxN5N1BBrn Tn6JMZAoIRKrJeLgWIYQATecMT3KET8hpjA3VG1BpM QvQIEdZULwgHFfESq0M17xvULqBDscEM7JEQC+Jocelyn+Ab2ITLOuCEIvPVRbUgPcCJMEZvBmU0UtJ3OCq2 FvS4NxOI23gFmcbuFkSAtaYI3UJF5pRTZvRDMHGK4ZqBXveU8awiNpCCZuRNIXFzAqY09kaNTiIBZiCE N7GWCeSf3ZCHDmP6QvjzAviOfpfqGgGQDiPJRCZF7Z XZsgyeLhxKEcqIjyIZ27pUwzEC2SOz4DVoKmXP0flj7IwXKoWz1STRNmSC8QRDClJFAgEVNgAHY5IRLv EtWxNUrvPEGjGVVpFKV0ULGmGUQqNH3GUxKdISBkMrV2TOKsHNCtFZHgsa8CMSNpXYNjIBHnNbCuJYZr LMCxTAhkJVYrXKOkQMA6AZRnBLJfBA3QFtFjSMVhCG W1SSEnLXOlGZKjpv0CSBZkHMWcKvltUfXzZVOsFKBdQFwfTCDzFUJ0BVVvJKEoSAMiHE1BNhNhCNTtSB eaZSroDYPiYYRold9QIGOrONOpGAV1QeOiZQCyPCWnPIotFHFrLMZvELUgNZYxBNVvEU5UTpCxBTLmDS RoTJHzHMLuGCJbkz0OKJPgLYYdVbXuWNCcRXQxLTBa PFxmEDCqZPD2WAhrSHZcTCXmMH3FFwRgFXCzQAk9FuikZBIaRLSbry5BTCOnFGWfEDblHnYlXDGkFCIq YFsoKOYpUWP0XCLgTXZiLUOpRT2IHxHrBYKqZxDlMKMkDRPtMJQjaz1HXFWgOUSbWRJ9JCWhITInQYYn AKsoTJHvSEHzACOcDZHiBQEkRI9AZbSnEDUpChR5Qj XtZUFwNOPyrm3BTYKuKOFkWHHeXWNpOQWkAPSaGWwrCABzKLGyBIXvPNBeXAJzBB3SMhUqAVSiQdX4Dk BmPISyVDKqcp8HCWVkLGHcQvl3POIqQHSuYYPfDAynWJMaLGTyNXOjPWAgVPWbBB9GEpMyDPSiFgD9Os lwCVWfQEJrnw4JZQRwBTMmOVq5VPByRLEgNJZdTNhd CIIeVFG4ULD2ZEHuPXOmRL9ELgDxVSXcJxHmBSMbQKGdGXFfak6FDOHxYOXjNJV5PXSbIRUnENHmHKfr GFArCNB0DuftDADvVTQsEP6XJqPqXZYyWgN0ZCDdRVHfEAOyro2AUOBpGQEvQlo6YMTlSKScONLcRRyr ISRsNZK1FIpyCDSeZIHcDB6PPgUtNPBhWrs7YnStLL LuFTPukl7WORPhGOQwFNneZVGeCGRmFTPrOImbMUAuKGM6ESu3BBAcZTZaPZ8PJyNeEKfzOTWGBer8WX qsT2p2IEMzZI7QS4Ito3PtNwhcSWWICQfmTA6cexPsMIDdHy0UM8lXMkumZnKoTGTwZPAfUBDhDmQeWZ RrZsQdIsh3WVZ8RXVoVU9fRAMbHyC3ZfI4ErKvO0Mt IgQvGdZfFdNwNrU7CRY8OBOpUfQpIQ5LSo4DKaU9ESY7iJVcCv5WGesiOvAPUdHfFU8PEDb= ID Date Data Source [id number] 06/15/2020 02:24:16 PM [facility] Name Value Range Interpretation Code Description Data Izabela rce(s) Supporting Document(s) Glucose [Mass/volume] in Capillary blood by Glucometer 159 mg/dL 70- 140 H [facility] ID Date Data Source [id number] 06/15/2020 11:49:35 AM [facility] Value Range Interpretation Code Description Data Izabela rce(s) Supporting Document(s) Glucose [Mass/volume] in Capillary blood by Glucometer 159 mg/dL 70- 140 H [facility] ID Date Data Source [id number] 06/15/2020 12:12:31 PM [facility] Value Range Interpretation Code Description Data Izabela rce(s) Supporting Document(s) Magnesium [Mass/volume] in Serum or Plasma 1.6 mg/dL 1.6-2.4 [facility] ID Date Data Source [id number] 06/15/2020 12:12:31 PM [facility] Value Range Interpretation Code Description Data Izabela rce(s) Supporting Document(s) Bicarbonate [Moles/volume] in Serum 19 mmol/L 22-29 L [facility] Chloride [Moles/volume] in Serum or Plasma 107 mmol/L 98-107 [facility] Creatinine [Mass/volume] in Serum or Plasma 8.23 mg/dL 0.70-1.20 H [facility] Glucose [Mass/volume] in Serum or Plasma 170 mg/dL 70-140 H [facility] Potassium [Moles/volume] in Serum or Plasma 5.1 mmol/L 3.4-5.1 [facility] Sodium [Moles/volume] in Serum or Plasma 142 mmol/L 136-145 [facility] Urea nitrogen [Mass/volume] in Serum or Plasma 84 mg/dL 8-23 H [facility] Anion gap 3 in Serum or Plasma 16 mmol/L 8-15 H [facility] Osmolality of Serum or Plasma by calculation 323 mosm/kg 275-300 H [facility] Creatinine/Urea nitrogen [Mass Ratio] in Serum or Plasma 10 [facility] Calcium [Mass/volume] in Serum or Plasma 8.2 mg/dL 8.8-10.2 L [facility] Glomerular filtration rate/1.73 sq M pre dicted among non-blacks [Volume Rate/Area] in Serum or Plasma by Creatinine-based formula (MDRD) >6 0 [facility] Glomerular filtration rate/1.73 sq M pre dicted among blacks [Volume Rate/Area] in Serum or Plasma by Creatinine-based formula (MDRD) >60 [facility] ID Date Data Source [id number] 06/15/2020 12:12:31 PM [facility] Name Value Range Interpretation Code Description Data Izabela rce(s) Supporting Document(s) Phosphate [Mass/volume] in Serum or Plasma 6.1 mg/dL 2.5-4.5 H [facility] ID Date Data Source [id number] 06/15/2020 08:08:26 AM [facility] Value Range Interpretation Code Description Data Izabela rce(s) Supporting Document(s) Glucose [Mass/volume] in Capillary blood by Glucometer 99 mg/dL 70- 140 [facility] ID Date Data Source [id number] 06/15/2020 04:17:46 AM [facility] Value Range Interpretation Code Description Data Izabela rce(s) Supporting Document(s) Glucose [Mass/volume] in Capillary blood by Glucometer 113 mg/dL 70- 140 [facility] ID Date Data Source [id number] 06/18/2020 08:05:33 AM [facility] Cmnt XXX-Imp : NoneMicroorganism XXX Cult : No growth 3 days Name Value Range Interpretation Code Description Data Izabela rce(s) Supporting Document(s) ID Date Data Source [id number] 06/18/2020 08:05:24 AM [facility] Cmnt XXX-Imp : NoneMicroorganism XXX Cult : No growth 3 days Name Value Range Interpretation Code Description Data Izabela rce(s) Supporting Document(s) ID Date Data Source [id number] 06/15/2020 04:29:19 AM [facility] Value Range Interpretation Code Description Data Izabela rce(s) Supporting Document(s) Color of Urine [facility] Clarity of Urine [facility] Specific gravity of Urine by Refractometry automated 1.010 1.003 -1.030 [facility] pH of Urine by Automated test strip 8.0 5.0-8.0 [facility] Protein [Mass/volume] in Urine by Automated test strip Neg [facility] Glucose [Mass/volume] in Urine by Automated test strip 150 mg/dL Neg [facility] Ketones [Mass/volume] in Urine by Automated test strip 5 mg/dL Neg [facility] Bilirubin.total [Presence] in Urine by Automated test strip Negative [facility] Hemoglobin [Presence] in Urine by Automated test strip Neg [facility] Leukocyte esterase [Presence] in Urine by Automated test strip Negative [facility] Nitrite [Presence] in Urine by Automated test strip Negati ve [facility] Leukocytes [#/area] in Urine sediment by Automated count 3 /HPF 0 -5 [facility] Erythrocytes [#/area] in Urine sediment by Automated count 8481 /HPF 0-3 H [facility] ID Date Data Source [id number] 06/15/2020 04:21:01 AM [facility] Name Value Range Interpretation Code Description Data Izabela rce(s) Supporting Document(s) Color of Urine [facility] Clarity of Urine [facility] Specific gravity of Urine by Refractometry automated 1.009 1.003 -1.030 [facility] pH of Urine by Automated test strip 7.0 5.0-8.0 [facility] Protein [Mass/volume] in Urine by Automated test strip 30 mg/dL Neg [facility] Glucose [Mass/volume] in Urine by Automated test strip 50 mg/dL Neg [facility] Ketones [Mass/volume] in Urine by Automated test strip Neg [facility] Bilirubin.total [Presence] in Urine by Automated test strip Negative [facility] Hemoglobin [Presence] in Urine by Automated test strip Neg [facility] Leukocyte esterase [Presence] in Urine by Automated test strip Negative [facility] Nitrite [Presence] in Urine by Automated test strip Negati ve [facility] Leukocytes [#/area] in Urine sediment by Automated count 2 /HPF 0 -5 [facility] Erythrocytes [#/area] in Urine sediment by Automated count 676 /HPF 0-3 H [facility] ID Date Data Source [id number] 06/15/2020 03:59:10 AM [facility] Name Value Range Interpretation Code Description Data Izabela rce(s) Supporting Document(s) Leukocytes [#/volume] in Blood by Automated count 6.0 10*3/uL 4-10 [facility] Erythrocytes [#/volume] in Blood by Automated count 3.65 10*6/uL 4.6- 6.1 L [facility] Hemoglobin [Mass/volume] in Blood 11.3 g/dL 13.5-18 L [facility] Hematocrit [Volume Fraction] of Blood by Automated count 33.7 % 4 1-53 L [facility] Erythrocyte mean corpuscular volume [Entitic volume] by Auto mated count 92.1 fL 80-96 [facility] Erythrocyte mean corpuscular hemoglobin [Entitic mass] by Automated count 30.9 pg 27-33 [facility] Erythrocyte mean corpuscular hemoglobin concentration [Mass/volume] by Automated count 33.5 g/dL 32.0-36.0 [facility] distribution width [Ratio] by Automated count 14.4 % 11.5-14.5 [facility] Platelets [#/volume] in Blood by Automated count 235 10*3/uL 150-400 [facility] Differential cell count method - Blood [facility] Neutrophils/100 leukocytes in Blood by Automated count 70 % [facility] Lymphocytes/100 leukocytes in Blood by Automated count 14 % [facility] Monocytes/100 leukocytes in Blood by Automated count 12 % [facility] Eosinophils/100 leukocytes in Blood by Automated count 3 % [facility] Basophils/100 leukocytes in Blood by Automated count 1 % [facility] Neutrophils [#/volume] in Blood by Automated count 4.28 10*3/uL 1.8-7 .0 [facility] Lymphocytes [#/volume] in Blood by Automated count 0.86 10*3/uL 1.2-4 .0 L [facility] Monocytes [#/volume] in Blood by Automated count 0.70 10*3/uL 0-0.8 [facility] Eosinophils [#/volume] in Blood by Automated count 0.17 10*3/uL 0-0.5 [facility] Basophils [#/volume] in Blood by Automated count 0.04 10*3/uL 0-0.2 [facility] Nucleated erythrocytes/100 leukocytes [Ratio] in Blood by Automated count 0 /100{WBCs} 0-0 [facility] ID Date Data Source [id number] 06/15/2020 04:10:[address] [facility] Name Value Range Interpretation Code Description Data Izabela rce(s) Supporting Document(s) Fibrin D-dimer FEU [Mass/volume] in Platelet poor plas ma by Immunoassay 2.78 ug/mL{FEU} <0.50 H [facility] ID Date Data Source [id number] 06/15/2020 04:17:19 AM [facility] Name Value Range Interpretation Code Description Data Izabela rce(s) Supporting Document(s) Bicarbonate [Moles/volume] in Serum 18 mmol/L 22-29 L [facility] Chloride [Moles/volume] in Serum or Plasma 108 mmol/L 98-107 H [facility] Creatinine [Mass/volume] in Serum or Plasma 8.99 mg/dL 0.70-1.20 H [facility] Glucose [Mass/volume] in Serum or Plasma 121 mg/dL 70-140 [facility] Potassium [Moles/volume] in Serum or Plasma 5.2 mmol/L 3.4-5.1 H [facility] Sodium [Moles/volume] in Serum or Plasma 143 mmol/L 136-145 [facility] Urea nitrogen [Mass/volume] in Serum or Plasma 90 mg/dL 8-23 H [facility] Anion gap 3 in Serum or Plasma 17 mmol/L 8-15 H [facility] Osmolality of Serum or Plasma by calculation 325 mosm/kg 275-300 H [facility] Creatinine/Urea nitrogen [Mass Ratio] in Serum or Plasma 10 [facility] Calcium [Mass/volume] in Serum or Plasma 7.8 mg/dL 8.8-10.2 [facility] Glomerular filtration rate/1.73 sq M pre dicted among non-blacks [Volume Rate/Area] in Serum or Plasma by Creatinine-based formula (MDRD) >6 0 [facility] Glomerular filtration rate/1.73 sq M pre dicted among blacks [Volume Rate/Area] in Serum or Plasma by Creatinine-based formula (MDRD) >60 [facility] ID Date Data Source [id number] 06/15/2020 04:17:19 AM [facility] Name Value Range Interpretation Code Description Data Izabela rce(s) Supporting Document(s) Magnesium [Mass/volume] in Serum or Plasma 1.6 mg/dL 1.6-2.4 [facility] ID Date Data Source [id number] 06/15/2020 04:17:19 AM [facility] Value Range Interpretation Code Description Data Izabela rce(s) Supporting Document(s) Troponin T.cardiac [Mass/volume] in Serum or Plasma 0.10 ng/mL <0.01 H [facility] ID Date Data Source [id number] 06/15/2020 04:17:19 AM [facility] Value Range Interpretation Code Description Data Izabela rce(s) Supporting Document(s) Phosphate [Mass/volume] in Serum or Plasma 6.8 mg/dL 2.5-4.5 H [facility] ID Date Data Source [id number] 06/15/2020 01:37:10 AM [facility] Value Range Interpretation Code Description Data Izabela rce(s) Supporting Document(s) Glucose [Mass/volume] in Capillary blood by Glucometer 124 mg/dL 70- 140 [facility] ID Date Data Source [id number] 06/15/2020 01:06:56 AM [facility] Value Range Interpretation Code Description Data Izabela rce(s) Supporting Document(s) Glucose [Mass/volume] in Capillary blood by Glucometer 125 mg/dL 70- 140 [facility] ID Date Data Source [id number] 06/15/2020 12:32:12 AM [facility] Value Range Interpretation Code Description Data Izabela rce(s) Supporting Document(s) Glucose [Mass/volume] in Capillary blood by Glucometer 138 mg/dL 70- 140 [facility] ID Date Data Source [id number] 06/15/2020 12:08:29 AM [facility] Value Range Interpretation Code Description Data Izabela rce(s) Supporting Document(s) Glucose [Mass/volume] in Capillary blood by Glucometer 154 mg/dL 70- 140 H [facility] ID Date Data Source [id number] 06/15/2020 12:51:47 AM [facility] Value Range Interpretation Code Description Data Izabela rce(s) Supporting Document(s) Bicarbonate [Moles/volume] in Serum 18 mmol/L 22-29 L [facility] Chloride [Moles/volume] in Serum or Plasma 104 mmol/L 98-107 [facility] Creatinine [Mass/volume] in Serum or Plasma 9.41 mg/dL 0.70-1.20 H [facility] Glucose [Mass/volume] in Serum or Plasma 196 mg/dL 70-140 H [facility] Potassium [Moles/volume] in Serum or Plasma 5.6 mmol/L 3.4-5.1 H [facility] Sodium [Moles/volume] in Serum or Plasma 137 mmol/L 136-145 [facility] Urea nitrogen [Mass/volume] in Serum or Plasma 94 mg/dL 8-23 H [facility] Anion gap 3 in Serum or Plasma 15 mmol/L 8-15 [facility] Osmolality of Serum or Plasma by calculation 318 mosm/kg 275-300 H [facility] Creatinine/Urea nitrogen [Mass Ratio] in Serum or Plasma 10 [facility] Calcium [Mass/volume] in Serum or Plasma 7.7 mg/dL 8.8-10.2 L [facility] Glomerular filtration rate/1.73 sq M pre dicted among non-blacks [Volume Rate/Area] in Serum or Plasma by Creatinine-based formula (MDRD) >6 0 [facility] Glomerular filtration rate/1.73 sq M pre dicted among blacks [Volume Rate/Area] in Serum or Plasma by Creatinine-based formula (MDRD) >60 [facility] ID Date Data Source [id number] 06/15/2020 12:51:47 AM [facility] Name Value Range Interpretation Code Description Data Izabela rce(s) Supporting Document(s) Troponin T.cardiac [Mass/volume] in Serum or Plasma 0.08 ng/mL <0.01 H [facility] ID Date Data Source [id number] 06/14/2020 11:38:59 PM [facility] Value Range Interpretation Code Description Data Izabela rce(s) Supporting Document(s) Glucose [Mass/volume] in Capillary blood by Glucometer 126 mg/dL 70- 140 [facility] ID Date Data Source [id number] 06/14/2020 10:24:44 PM [facility] Value Range Interpretation Code Description Data Izabela rce(s) Supporting Document(s) Glucose [Mass/volume] in Capillary blood by Glucometer 73 mg/dL 70- 140 [facility] ID Date Data Source [id number] 06/14/2020 09:26:30 PM [facility] IR NEPHROSTOMY INSERTION CHANGEFINAL RES ULTInterpreted by:RYAN [...] CT of the abdomen and pelvis from [facility] obtained on 06/13/2020TIME OUT: Prior [...] pelvis. Subsequently after serial dilations, a 8.5 Armenian resolve nephrostomy drainage catheter was inserted into [...] pelvis. Subsequently after serial dilations, a 8.5 Armenian resolve nephrostomy drainage catheter was inserted into the renal pelvis. The catheter was then sutured to the skin with a 2-0 Prolene suture and a gravity drainage bag was attached to the tube. A sterile, occlusive dressing was placed on the skin surrounding the drain.FINDINGS: Bilateral marked hydronephrosis.IMPRESSION: Technically successful bilateral 8.5 Armenian nephrostomy tube placement.Plan: Exchange in approximately 8-12 weeks is recommended. This document has been electronically signed by Odell Sawant DO on 06/14/2020 9:24 PM Name Value Range Interpretation Code Description Data Izabela rce(s) Supporting Document(s) ID Date Data Source [id number] 06/14/2020 07:59:00 PM [facility] Name Value Range Interpretation Code Description Data Izabela [facility](s) Supporting Document(s) History and Physical [facility] JLGTGr8vAmXFNpWs67/QAYjnZGLec8NlSUymIOv8UOixJYMcR0RcEZV3qG2kFRS4ZWkQVfWuIsDvQoRc [facility] [file] [employer]/DH57GQC46kQPgt7MlEbp2zmmx4ZLzBm0YYU6hiZUT+uY8Op650PUSLmNTE/ES5T0paCaHKawg5h/ C1dxRsey/T8tax31FC1zf03pTjdW00AB5d+D/qRvVupZhq4a+eaYoITC5c3/Q1Kfxle67RzTkktqq2o+ WTP0Wn3su8Qqv+gETAw/E/F6a4km4HPVhvan5rmvq8 ymNkuXm/y1faGglAMVdGg24qVaJr7SmrWTfW/GcUqh81zhuZq4Fl85hwrhtQ376sahiQgI24OTo6GLyo 6yGdXIJf2EuDYkH6z7D+8k67Ak4lwU9IO33tbx/4ibkbHFDHq8k6Deqy69KvetnL8mwuC+h/IWjRaQvk u2YAtRcRyXba4Q14Js24GFZrfapbg7Vi6K7W+Ra164 YDcBD2UfQJ/PXBkq61okxAQTO9rX69T2XS8kx6AgRd0yj9OX3LVK1CimU/8KIbgCCC5GZ/QjcaZTHKi7 8605enUVxu4laVwTA4icwR1YtNEtqYzrVuGjwWGEd2oXJ2Oj8zj9eYONkZrGdrUn5aND1H43MurxjN57 TpJ979JqxEDZsQ3lA4p/0t+bHH4V2qeCl+vvQa+/Rx 4kSUbHKP6SgI19y/mIcmlCAljnlyoV4KFTFjK7ktO3JkoBKHGoPh1Za98rxMC61nK6F9Bznqi0U5Ahv8 N/tmMHF4j1D+D9zvU0DidLOoFeO9tBHkjUIo0cRL9hNBM78ZXa5a+sqk6ozak3JE4NEwcoJRLH/8yYCd Martino/gu2n2EWqpebPObFboVMhH3vbn8m6ddwqZuzw/57 [file] [id number] ID Date Data Source [id number] 06/14/2020 05:46:22 PM [facility] Name Value Range Interpretation Code Description Data Izabela rce(s) Supporting Document(s) Glucose [Mass/volume] in Capillary blood by Glucometer 78 mg/dL 70- 140 [facility] ID Date Data Source [id number] 06/14/2020 05:59:23 PM [facility] Name Value Range Interpretation Code Description Data Izabela rce(s) Supporting Document(s) Leukocytes [#/volume] in Blood by Automated count 5.3 10*3/uL 4-10 [facility] Erythrocytes [#/volume] in Blood by Automated count 3.62 10*6/uL 4.6- 6.1 L [facility] Hemoglobin [Mass/volume] in Blood 11.1 g/dL 13.5-18 L [facility] Hematocrit [Volume Fraction] of Blood by Automated count 33.5 % 4 1-53 L [facility] Erythrocyte mean corpuscular volume [Entitic volume] by Auto mated count 92.6 fL 80-96 [facility] Erythrocyte mean corpuscular hemoglobin [Entitic mass] by Automated count 30.7 pg 27-33 [facility] Erythrocyte mean corpuscular hemoglobin concentration [Mass/volume] by Automated count 33.1 g/dL 32.0-36.0 [facility] E[facility]th[facility] distribution width [Ratio] by Automated count 13.6 % 11.5-14.5 [facility] Platelets [#/volume] in Blood by Automated count 209 10*3/uL 150-400 [facility] Differential cell count method - Blood [facility] Neutrophils/100 leukocytes in Blood by Automated count 72 % [facility] Lymphocytes/100 leukocytes in Blood by Automated count 16 % [facility] Monocytes/100 leukocytes in Blood by Automated count 8 % [facility] Eosinophils/100 leukocytes in Blood by Automated count 3 % [facility] Basophils/100 leukocytes in Blood by Automated count 1 % [facility] Neutrophils [#/volume] in Blood by Automated count 3.88 10*3/uL 1.8-7 .0 [facility] Lymphocytes [#/volume] in Blood by Automated count 0.84 10*3/uL 1.2-4 .0 L [facility] Monocytes [#/volume] in Blood by Automated count 0.44 10*3/uL 0-0.8 [facility] Eosinophils [#/volume] in Blood by Automated count 0.13 10*3/uL 0-0.5 [facility] Basophils [#/volume] in Blood by Automated count 0.05 10*3/uL 0-0.2 [facility] Nucleated erythrocytes/100 leukocytes [Ratio] in Blood by Automated count 0 /100{WBCs} 0-0 [facility] ID Date Data Source [id number] 06/14/2020 06:13:18 PM [facility] Name Value Range Interpretation Code Description Data Izabela rce(s) Supporting Document(s) Prothrombin time (PT) 15.4 s 12.5-14.9 H [facility] INR in Platelet poor plasma by Coagulation assay 1.20 [facility] Routine intensity oral anticoagulation I NR is typically 2.0-3.0. Target INR must be clinically individualized. ID Date Data Source [id number] 06/14/2020 06:13:18 PM [facility] Value Range Interpretation Code Description Data Izabela rce(s) Supporting Document(s) aPTT in Platelet poor plasma by Coagulation assay 27.2 s 24.0-33. 0 [facility] ID Date Data Source [id number] 06/14/2020 06:27:46 PM [facility] Name Value Range Interpretation Code Description Data Izabela rce(s) Supporting Document(s) Albumin [Mass/volume] in Serum or Plasma by Bromocresol green (BCG) dye binding method 3.1 g/dL 3.5-5.2 [facility] Bilirubin.total [Mass/volume] in Serum or Plasma 0.3 mg/dL <1.2 [facility] Calcium [Mass/volume] in Serum or Plasma 7.9 mg/dL 8.8-10.2 L [facility] Chloride [Moles/volume] in Serum or Plasma 106 mmol/L 98-107 [facility] Creatinine [Mass/volume] in Serum or Plasma 9.79 mg/dL 0.70-1.20 H [facility] Glucose [Mass/volume] in Serum or Plasma 79 mg/dL 70-140 [facility] Alkaline phosphatase [Enzymatic activity/volume] in Serum or Plasma 93 U/L 40-129 [facility] Potassium [Moles/volume] in Serum or Plasma 5.8 mmol/L 3.4-5.1 H [facility] Protein [Mass/volume] in Serum or Plasma 5.5 g/dL 6.4-8.3 L [facility] Sodium [Moles/volume] in Serum or Plasma 142 mmol/L 136-145 [facility] Aspartate aminotransferase [Enzymatic activity/volume] in Serum or Plasma 18 U/L <40 [facility] Urea nitrogen [Mass/volume] in Serum or Plasma 96 mg/dL 8-23 H [facility] Osmolality of Serum or Plasma by calculation 323 mosm/kg 275-300 H [facility] Creatinine/Urea nitrogen [Mass Ratio] in Serum or Plasma 10 [facility] Bicarbonate [Moles/volume] in Serum 20 mmol/L 22-29 L [facility] Alanine aminotransferase [Enzymatic activity/volume] in Seru m or Plasma 29 U/L <41 [facility] Anion gap 3 in Serum or Plasma 16 mmol/L 8-15 H [facility] Glomerular filtration rate/1.73 sq M pre dicted among non-blacks [Volume Rate/Area] in Serum or Plasma by Creatinine-based formula (MDRD) >6 0 [facility] Glomerular filtration rate/1.73 sq M pre dicted among blacks [Volume Rate/Area] in Serum or Plasma by Creatinine-based formula (MDRD) >60 [facility] ID Date Data Source [id number] 06/14/2020 06:27:[address] [facility] Hospital Name Value Range Interpretation Code Description Data Izabela rce(s) Supporting Document(s) Troponin T.cardiac [Mass/volume] in Serum or Plasma 0.09 ng/mL <0.01 H [facility] ID Date Data Source [id number] 06/14/2020 06:27:46 PM [facility] Name Value Range Interpretation Code Description Data Izabela rce(s) Supporting Document(s) Phosphate [Mass/volume] in Serum or Plasma 7.9 mg/dL 2.5-4.5 H [facility] ID Date Data Source [id number] 06/14/2020 06:27:46 PM [facility] Name Value Range Interpretation Code Description Data Izabela rce(s) Supporting Document(s) Magnesium [Mass/volume] in Serum or Plasma 1.6 mg/dL 1.6-2.4 [facility] ID Date Data Source [id number] 06/14/2020 04:32:00 PM EST [facility] Name Value Range Interpretation Code Description Data Izabela rce(s) Supporting Document(s) SARS-CoV-2 RNA [facility] This lab was ordered by [facility] and reported by [facility]. ID Date Data Source [id number] 06/15/2020 01:28:52 PM [facility] Name Value Range Interpretation Code Description Data Izabela rce(s) Supporting Document(s) Specimen source [Identifier] of Unspecified specimen [facility] SARS-CoV-2 RNA 2018 nCoV Real-Time RT-PCR: NOT DETECTED [facility] Assay Performed [facility] Patients first test for 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 When did you start to experience these symptoms [Date and time] [Phen X] [facility] Patient was hospitalized because of this condition [facility] patient was admitted to ICU for [facility] Patient resides in a congregate care setting [facility] status [facility] ID Date Data Source [id number] 06/14/2020 08:24:02 PM [facility] Name Value Range Interpretation Code Description Data Izabela rce(s) Supporting Document(s) Glucose [Mass/volume] in Capillary blood by Glucometer 77 mg/dL 70- 140 [facility] ID Date Data Source [id number] 06/13/2020 10:55:00 PM EST [facility] Name Value Range Interpretation Code Description Data Izabela rce(s) Supporting Document(s) Coronavirus 2019 Nasopharygeal Laboratory test result [facility] ([facility] Laboratory test finding (navigational concept) Laboratory test r esult Normal (applies to non-numeric results) [facility] A false negative result [...] pathogens. DISCLAIMER: Testing was performed using the [facility] SARS-CoV-2 test. This test was developed and its performance characteristics determined by [facility]. This test has not been FDA cleared [...] or revoked sooner. ID Date Data Source [id number] 06/13/2020 10:55:00 PM EST [facility] Name Value Range Interpretation Code Description Data Izabela rce(s) Supporting Document(s) SARS coronavirus 2 RNA [Presence] in Res piratory specimen by JOHANNE with probe detection [facility] This lab was ordered by [facility] a nd reported by [facility]. ID Date Data Source [id number] 06/13/2020 09:59:00 PM EST [facility] ([facility] Name Value Range Interpretation Code Description Data Izabela rce(s) Supporting Document(s) Troponin I.cardiac [Mass/volume] in Serum or Plasma Laboratory test result [facility] ([facility] Laboratory test finding (navigational concept) 0.14 ng/mL 0 .00-0.08 Above high normal [facility] ([facility] ) ID Date Data Source [id number] 06/13/2020 09:54:00 PM EST [facility] ([facility] Name Value Range Interpretation Code Description Data Izabela rce(s) Supporting Document(s) Natriuretic peptide.B prohormone N-Terminal [Mass/volu me] in Serum or Plasma 13526 pg/mL Above high normal [facility] ([facility] Lipoprotein lipase [Enzymatic activity/volume] in Serum or P lasma 891 U/L 73-393 Above high normal [facility] ([facility] Troponin I.cardiac [Mass/volume] in Serum or Plasma 0.08 ng/mL Normal (applies to non-numeric results) [facility] ([facility] <content>Troponin I Reference Interval f or [employer] [place] LOCI:</content>
<content></content>
<content>99th Percentile= 0.00-0.045 ng/ml</content>
<content></content>
[...] plasma 3589.24 ng/mL Above high normal [facility] ([facility] ) ID Date Data Source [id number] 06/13/2020 09:54:00 PM EST [facility] ([facility] Name Value Range Interpretation Code Description Data Izabela rce(s) Supporting Document(s) Glucose, Fasting 76 mg/dL 70-100 Normal (applies to non-numeric results) [facility] ([facility] Blood Urea Nitrogen 101 mg/dL 7-18 Above high normal [facility] ([facility] Glomerular Filtration Rate 6.2 Below low normal [facility] ([facility] <content>Units are mL/min/1.73 m2</content>
<content></content>
<content>Chronic Kidney Disease Staging per NK[facility]:</content>
<content></content>
<content>Stage I & II GFR >=60 Normal to Mildly Decreased</content>
<content>Stage III GFR 30- 59 Moderately Decreased</content>
<content>Stage IV GFR 15-29 Severely Decreased</content>
<content>Stage V GFR <15 Very Little GFR Left</content>
<content>ESRD GFR <15 on HEALTH POLICY NURSE</content>
<content></content> Creatinine For GFR 8.78 mg/dL 0.70-1.30 Above upper panic limits [facility] ([facility] Sodium Level 139 meq/L 136-145 Normal (applies to non-numeric res ults) [facility] ([facility] Chloride Level 109 meq/L 98-107 Above high normal [facility] ([facility] Potassium Serum 6.6 meq/L 3.5-5.1 Above upper panic limits [facility] ([facility] This specimen has an elevated potassium level but there is NO visible hemolysis noted. Carbon Dioxide Level 15 meq/L 21-32 Below low normal [facility] ([facility] Anion Gap 15 meq/L 8-16 Normal (applies to non-numeric resul ts) [facility] ([facility] Calcium Level 7.7 mg/dL 8.8-10.2 Below low normal [facility] ([facility] Alt/SGPT 47 U/L 12-78 Normal (applies to non-numeric resul ts) [facility] ([facility] Ast/Sgot 32 U/L 7-37 Normal (applies to non-numeric resul ts) [facility] ([facility] Bilirubin,Total 0.4 mg/dL 0.2-1.0 Normal (applies to non-numeric results) [facility] ([facility] Alkaline Phosphatase 103 U/L 45-117 Normal (applies to non-num rodrigo results) [facility] ([facility] Total Protein 6.1 GM/DL 6.4-8.2 Below low normal [facility] ([facility] Albumin/Globulin Ratio 1.1 Normal (applies to non-n umeric results) [facility] ([facility] Albumin 3.2 GM/DL 3.2-5.2 Normal (applies to non-numeric resul ts) [facility] ([facility] ID Date Data Source [id number] 06/13/2020 09:54:00 PM EST [facility] ([facility] Name Value Range Interpretation Code Description Data Izabela rce(s) Supporting Document(s) Red Blood Count 3.36 10 4.30-6.10 Below low normal [facility] ([facility] White Blood Count 6.3 10 4.0-10.0 Normal (applies to non-numeri c results) [facility] ([facility] Hemoglobin 9.9 g/dL 13.5-17.5 Below low normal [facility] ( [facility] Hematocrit 32.0 % 42.0-52.0 Below low normal [facility] ( [facility] Mean Corpuscular Volume 95.2 fl 80.0-96.0 Normal ( applies to non-numeric results) [facility] ([facility] ) Mean Corpuscular Hemoglobin 29.5 pg 27.0-33.0 Norm al (applies to non-numeric results) [facility] ([facility] ) Mean Corpuscular HGB Conc 30.9 g/dL 32.0-36.5 Below low normal [facility] ([facility] Red Cell Distribution Width 14.2 % 11.5-14.5 Norm al (applies to non-numeric results) [facility] ([facility] ) Platelet Count, Automated 224 10 150-450 Normal (applies to non-numeric results) [facility] ([facility] ) Neutrophils % 66.7 % 36.0-66.0 Above high normal [facility] ([facility] Lymph % 22.3 % 24.0-44.0 Below low normal [facility] ( [facility] Otero % 8.7 % 0.0-5.0 Above high normal [facility] ([facility] Eos % 1.3 % [...] normal [facility] ( [facility] Otero # 0.6 10 0.0-0.8 Normal (applies to non-numeric resul ts) [facility] ([facility] Eos # 0.1 10 0.0-0.5 Normal (applies to non-numeric resul ts) [facility] ([facility] Baso # 0.0 10 0.0-0.2 Normal (applies to non-numeric resul ts) [facility] ([facility] ID Date Data Source [id number] 05/30/2020 12:00:00 PM EST [facility] Name Value Range Interpretation Code Description Data Izabela rce(s) Supporting Document(s) Laboratory test finding (navigational concept) Laboratory test result [facility] ([facility] Occult Blood Reenter Laboratory test result [facility] ([facility] { DATE COLLECTED 05/28/20 { HEMOCCULT LOT # [id number] ) { LOT EXP DATE 07/06 ) Laboratory test finding (navigational concept) Laboratory test result [facility] ([facility] Laboratory test finding (navigational concept) Laboratory test result [facility] ([facility] Laboratory test finding (navigational concept) Laboratory test result [facility] ([facility] ID Date Data Source [id number] 05/31/2020 03:14:00 PM [facility] Name Value Range Interpretation Code Description Data Izabela rce(s) Supporting Document(s) OCCULT BL #1 NEGATIVE NORMAL: NEGATIVE [facility] NEGATIVE{ DATE COLLECTED OCCULT BL #2 NEGATIVE NORMAL: NEGATIVE [facility] NEGATIVE{ DATE COLLECTED OCCULT BL #3 NEGATIVE NORMAL: NEGATIVE [facility] NEGATIVE{ DATE COLLECTED { HEMOCCULT LOT # [id number] ){ LOT EXP DATE 07/06 ) CEDURAL CONTROL PO /NEG [facility] ID Date Data Source [id number] 05/28/2020 02:55:00 PM EST [facility] ([facility] Name Value Range Interpretation Code Description Data Izabela rce(s) Supporting Document(s) Microscopic observation [Identifier] in Unspecified specimen by Non- gynecological cytology method Laboratory test result [facility] ([facility] SPECIMEN: Urine 100ml Hazy yellow SPECIMEN ADEQUACY: Satisfactory for evaluation CATEGORIZATION: Negative for High-Grade Urothelial Carcinoma DESCRIPTIONS: Specimen consists mainly of abundant neutrophils COMMENTS: 05/29/2020 - 920 Signed CONCEPCION LENZ(ASCP) 05/29/2020 0921 (Prelim) Signed TROY JALLOH MD 05/29/2020 1218 ID Date Data Source [id number] 05/28/2020 02:24:00 PM EST [facility] ([facility] Name Value Range Interpretation Code Description Data Izabela rce(s) Supporting Document(s) Urate [Mass/volume] in Serum or Plasma 6.5 mg/dL 3.5-7.2 Normal (applies to non- numeric results) [facility] ([facility] ) Prostate specific Ag [Mass/volume] in Serum or Plasma 0.24 ng/mL Normal (applies to non-numeric results) [facility] The PSA assay is performed on the Arkeo analyzer by LOCI sandwich chemiluminescent immunoassay and [...] ng/mL Normal (applies to non-numeric results) [facility] ([facility] THE CEA ASSAY IS PERFORMED ON THE Symptify BY CHEMILUMINESCENCE AND SHOULD NOT BE COMPARED INTERCHANGEABLY WITH OTHER METHODS. IT SHOULD NOT BE USED ALONE A SCREENING TEST OR DIAGNOSIS FOR THE PRESENCE OR ABSENCE OF MALIGNANT DISEASE. PREDICTIONS OF DISEASE RECURRENCE SHOULD NOT BE BASED SOLELY ON VALUES OBTAINED FROM SERIAL PATIENT SERUM VALUES. ID Date Data Source [id number] 05/28/2020 02:24:00 PM EST [facility] ([facility] Name Value Range Interpretation Code Description Data Izabela rce(s) Supporting Document(s) Glucose, Fasting 83 mg/dL 70-100 Normal (applies to non-numeric results) [facility] ([facility] Blood Urea Nitrogen 59 mg/dL 7-18 Above high normal [facility] ([facility] Glomerular Filtration Rate 14.3 Below low normal [facility] ([facility] <content>Units are mL/min/1.73 m2</content>
<content></content>
<content>Chronic Kidney Disease Staging per [facility]:</content>
<content></content>
<content>Stage I & II GFR >=60 Normal to Mildly Decreased</content>
<content>Stage III GFR 30- 59 Moderately Decreased</content>
<content>Stage IV GFR 15-29 Severely Decreased</content>
<content>Stage V GFR <15 Very Little GFR Left</content>
<content>ESRD GFR <15 on HEALTH POLICY NURSE</content>
<content></content> Creatinine For GFR 4.23 mg/dL 0.70-1.30 Above high normal [facility] Sodium Level 144 meq/L 136-145 Normal (applies to non-numeric res ults) [facility] ([facility] Potassium Serum 5.2 meq/L 3.5-5.1 Above high normal [facility] ([facility] Chloride Level 114 meq/L 98-107 Above high normal [facility] ([facility] Anion Gap 4 meq/L 8-16 Below low normal [facility] ( [facility] Carbon Dioxide Level 26 [...] Normal (applies to non-n umeric results) [facility] ([facility] ID Date Data Source [id number] 05/28/2020 02:24:00 PM EST [facility] ([facility] Name Value Range Interpretation Code Description Data Izabela rce(s) Supporting Document(s) Inr 1.02 Normal (applies to non-numeric resul ts) [facility] ([facility] THERAPUTIC HUMAN INR VALUES INDICATIONS NORMAL RANGES PROPHYLAXIS/TREATMENT OF: VENOUS THROMBOSIS 2.0-3.0 PULMONARY EMBOLISM 2.0-3.0 PREVENTION OF SYSTEMIC EMBOLISM FROM: TISSUE HEART VALVES 2.0-3.0 ACUTE MYOCARDIAL INFARCTION 2.0-3.0 VALVULAR HEART DISEASE 2.0-3.0 ATRIAL FIBRILLATION 2.0-3.0 MECHANICAL VALVES(HIGH RISK) 2.5-3.5 RECURRENT MYOCARDIAL INFARCTION 2.5-3.5 Prothrombin Time 13.6 s 12.5-14.3 Normal (applies to non-numeric results) [facility] ([facility] Partial Thromboplastin Time 28.8 s 24.2-38.5 Norm al (applies to non-numeric results) [facility] ([facility] ) ID Date Data Source [id number] 05/28/2020 02:24:00 PM EST [facility] ([facility] Name Value Range Interpretation [...] Norm al (applies to non-numeric results) [facility] ([facility] ) Mean Corpuscular HGB Conc 31.8 g/dL 32.0-36.5 Below low normal [facility] ([facility] Red Cell Distribution Width 12.5 % 11.5-14.5 Norm al (applies to non-numeric results) [facility] ([facility] ) Platelet Count, Automated 184 10 150-450 Normal (applies to non-numeric results) [facility] ([facility] ) Lymph % 32.9 % 24.0-44.0 Normal (applies to non-numeric resul ts) [facility] ([facility] Neutrophils % 49.8 % 36.0-66.0 Normal (applies to non-numeric re sults) [facility] ([facility] Otero % 11.0 % 0.0-5.0 Above high normal [facility] ([facility] Baso % 0.9 % 0.0-1.0 Normal (applies to non-numeric resul ts) [facility] ([facility] Eos % 5.2 % 0.0-3.0 Above high normal [facility] ([facility] Immature Granulocyte % 0.2 % 0-3.0 Normal (applies to non-n umeric results) [facility] ([facility] Neutrophils # 2.7 10 1.5-8.5 Normal (applies to non-numeric re sults) [facility] ([facility] Nucleated Red Blood Cell % 0.0 % 0-0 Normal (applies to n on-numeric results) [facility] ([facility] Lymph # 1.8 10 1.5-5.0 Normal (applies to non-numeric resul ts) [facility] ([facility] Otero # 0.6 10 0.0-0.8 Normal (applies to non-numeric resul ts) [facility] ([facility] Baso # 0.1 10 0.0-0.2 Normal (applies to non-numeric resul ts) [facility] ([facility] Eos # 0.3 10 0.0-0.5 Normal (applies to non-numeric resul ts) [facility] ([facility] ID Date Data Source [id number] 05/18/2020 05:50:00 PM EST [facility] ([facility] Name Value Range Interpretation Code Description Data Izabela rce(s) Supporting Document(s) Basic Metabolic Pane Laboratory test result [facility] ([facility] .~.~C61 Sodium 142 meq/L 134-153 [facility] ([facility] .~.~C61 Potassium 4.9 meq/L 3.6-5.0 [facility] ([facility] .~.~C61 Chloride 107 meq/L 98-107 [facility] ([facility] .~.~C61 Co2 24 meq/L 22-30 [facility] ([facility] .~.~C61 Glucose 106 mg/dL 65-110 [facility] ([facility] .~.~C61 BUN 53 mg/dL 7-21 Above high normal [facility] .~.~C61 Creatinine 3.1 mg/dL 0.7-1.5 Above high normal [facility] ([facility] .~.~C61 Calcium 8.7 mg/dL 8.4-10.2 [facility] ([facility] .~.~C61 BUN/Creat 17 8-27 [facility] ([facility] .~.~C61 Anion Gap 11.0 mmol/L 8.0-16.0 [facility] ([facility] .~.~C61 Age 84 yrs [facility] ([facility] .~.~C61 Afr Amer GFR 25 mL/min [facility] ([facility] .~.~C61 Non-Aa GFR 21 mL/min [facility] ([facility] .~.~C61 ID Date Data Source [id number] 05/18/2020 05:50:00 PM EST [facility] ([facility] Name Value Range Interpretation Code Description Data Izabela rce(s) Supporting Document(s) Prostate specific Ag [Mass/volume] in Serum or Plasma 0.23 ng/mL 0.00 -4.00 [facility] .~.~C61 ID Date Data Source [id number] 05/18/2020 06:51:00 PM [facility] Name Value Range Interpretation Code Description Data Izabela e(s) Supporting Document(s) BASIC METABOLIC PANEL [facility] BASIC METABOLIC PANEL Sodium [Moles/volume] in Serum or Plasma 142 mEq/L 134 - 153 [facility] Potassium [Moles/volume] in Serum or Plasma 4.9 mEq/L 3.6 - 5.0 [facility] Chloride [Moles/volume] in Serum or Plasma 107 mEq/L 98 - 107 [facility] Carbon dioxide, total [Moles/volume] in Serum or Plasma 24 MEQ/L 22 - 30 [facility] Glucose [Mass/volume] in Serum or Plasma 106 MG/DL 65 - 110 [facility] BUN 53 MG[facility]DL 7 - [facility] Creatinine [Mass/volume] in Serum or Plasma 3.1 MG/DL 0.7 - 1.5 H [facility] BUN/CREAT 17 8 - 27 [facility] Calcium [Mass/volume] in Serum or Plasma 8.7 MG/DL 8.4 - 10.2 [facility] Anion gap 3 in Serum or Plasma 11.0 mmol/L 8.0 - 16.0 [facility] 84 [facility] GFR 25 mL/min [facility] NON-AA GFR 21 mL/min [facility] hussein Male GFR Inter prentation 20-49 [...] >32 mL/min Normal ID Date Data Source [id number] 05/18/2020 06:40:00 PM EST [facility] Name Value Range Interpretation Code Description Data Izabela rce(s) Supporting Document(s) Prostate specific Ag [Mass/volume] in Serum or Plasma 0.23 ng/mL 0.00 - 4.00 [facility] \\BLDo\\PSA INTERPRETA TION\\BLDx\\ The PSA [...] be used interchangeably. ID Date Data Source [id number] 04/06/2020 09:31:00 AM EDT [facility] [address] [place] [address] PHONE: [phone] FAX: [phone] Name .................. : CALLIE Young Acct Number.................. : [id number] ROOM. ................. : MR Number ................... : [id number] Stay type ............. : O/P Discharge Date......... ... : 04/04/20 Admit Date ......... : 04/04/20 Admit Phys .................... : OBENFELIX Date of ....... : 1935 Family Phys ................... : MAN SUAREZ Phone .................. : [phone] Age ................................ : 84 Film# .................. .:[id number] Sex ................................. : M Unsigned transcriptions are preliminary reports and do not represent a medical or legal document CT ABD & PELV W/[place] [address] COMPLETE:04/04/20 19:30 WISAM [id number] (REASON FOR ABDOMEN: HX MUSCLE INVASIVE BLADDER [...] the left side. Page 1 of [address] [address] PHONE: [phone] FAX: [phone] Name .................. : CALLIE Young Acct Number.................. : [id number] ROOM. ................. : MR Number ................... : [id number] Stay type ............. : O/P Discharge Date......... ... : 04/04/20 Admit Date ......... : 04/04/20 Admit Phys .................... : OBENFELIX Date of ....... : 1935 Family Phys ................... : MAN Nitero Phone .................. : [phone] Age ................................ : 84 Film# .................. .:[id number] Sex ................................. : M Unsigned transcriptions are preliminary reports and do not represent a medical or legal document CT ABD & PELV W/[place] ORAL W/[place] [address] COMPLETE:04/04/20 19 :30 WISAM [id number] (REASON FOR ABDOMEN: HX MUSCLE INVASIVE BLADDER [...] for: MAN EBER via fax Copy for: [address] [place] [address] REC Page 2 of 2 Name Value Range Interpretation Code Description Data Izabela rce(s) Supporting Document(s) ID Date Data Source [id number] 04/06/2020 09:30:00 AM EDT [facility] [address] [place] [address] PHONE: [phone] FAX: [phone] Name .................. : CALLIE Young Acct Number.................. : [id number] ROOM. ................. : MR Number ................... : [id number] Stay type ............. : O/P Discharge Date......... ... : 04/04/20 Admit Date ......... : 04/04/20 Admit Phys .................... : OBENFELIX Date of ....... : 1935 Family Phys ................... : MAN SUAREZ Phone .................. : [phone] Age ................................ : 84 Film# .................. .:[id number] Sex ................................. : M Unsigned transcriptions are preliminary reports and do not represent a medical or legal document CT THORAX W/O CONTRAST [id number] COMPLETE:04/04/20 08:35 52692 (REASON FOR CHEST: HX MUSCLE INVASIVE BLADDER [...] dose 614.[address]Gycm[address] Page [address] [facility] [address] [place] [address] [place] [address] PHONE: [phone] FAX: [phone] Name .................. : CALLIE Young Acct Number.................. : [id number] ROOM. ................. : Number ................... : [id number] Stay type ............. : O/P Discharge Date......... ... : 04/04/20 Admit Date ......... : 04/04/20 Admit Phys .................... : OBENFELIX Date of ....... : 1935 Family Phys ................... : Egoscue Phone .................. : [phone] Age ................................ : 84 Film# .................. .:[id number] Sex ................................. : M Unsigned transcriptions are preliminary reports and do not represent a medical or legal document CT THORAX W/O CONTRAST [id number] COMPLETE:04/04/20 08:35 34454 (REASON FOR CHEST: HX MUSCLE INVASIVE BLADDER [...] MAN DILLARD via fax Copy for: Serge [facility] REC 04/04/20 AT 12:10 ADDENDUM/REDICTATION [...] demonstrate degenerative changes. Page [address] [facility] [address] [place] [address] PHONE: [phone] FAX: [phone] Name .................. : CALLIE Young Acct Number.................. : [id number] ROOM. ................. : MR Number ................... : [id number] Stay type ............. : O/P Discharge Date......... ... : 04/04/20 Admit Date ......... : 04/04/20 Admit Phys .................... : OBENFELIX Date of ....... : 1935 Family Phys ................... : MAN SUAREZ Phone .................. : [phone] Age ................................ : 84 Film# .................. .:[id number] Sex ................................. : M Unsigned transcriptions are preliminary reports and do not represent a medical or legal document CT THORAX W/O CONTRAST 72556 COMPLETE:04/04/20 08:35 96111 (REASON FOR CHEST: HX MUSCLE INVASIVE BLADDER [...] for: MAN DILLARD via fax Copy for: [facility] MED REC Page 3 of 3 Name Value Range Interpretation Code Description Data Izabela rce(s) Supporting Document(s) ID Date Data Source [id number] 04/04/2020 08:32:00 AM EDT [facility] ([facility]) Name Value Range Interpretation Code Description Data Izabela rce(s) Supporting Document(s) CT Thorax W/O Contrast Laboratory test result [facility] ([facility]) ID Date Data Source [id number] 04/04/2020 08:31:00 AM EDT [facility] ([facility]) Name Value Range Interpretation Code Description Data Izabela rce(s) Supporting Document(s) CT Abd & Pelv W/O Oral W/O IV Laboratory test result [facility] ([facility]) ID Date Data Source [id number] 03/28/2020 12:54:00 PM EDT [facility] 1 OrderSheet [facility] Emergency Department [address] [place] [address] Phone #: [phone] 03/28/2020 12:32 Patient: GOYO NUÑEZ Sex: M : 1935 Age: 84yWEIGHT:63.5 kg (S) HEIGHT:65 inches (S) BMI:23.3ALLERGIES: No Known Drug AllergyCHIEF COMPLAINT: Ahn problemDIAGNOSIS: Change of urethral catheter, Urinary tract infectious diseaseLAB ORDERSOrder Description Priority Entered Acknowledged InitialedCBC w Diff STAT 13:04 03/28/2020 13:14 River Vera principal security architectTerrell ER Physician; [id number] STAT 13:04 03/28/2020 13:14 River Vera principal security architectGiancarloTerrell ER Physician; [id number] (Cath STAT 13:04 03/28/2020 13:19 Angela Joy) [...] rce(s) Supporting Document(s) ID Date Data Source [id number] 03/28/2020 12:54:00 PM EDT [facility] 1 Medication Reconciliation Report [facility] Emergency Department [address] [place] [address] Phone #: ext- [phone] 03/28/2020 12:32 Patient: GOYO NUÑEZ Sex: M [...] Dispense 14tablet. Refills: 0. Substitution permitted.Pharmacy - [facility] [address] [place] [address] ; [place], [place] [id number]. . -- Edgar Vera, Physician Name Value Range Interpretation Code Description Data Izabela rce(s) Supporting Document(s) ID Date Data Source [id number] 03/28/2020 12:54:00 PM EDT [facility] 1 Medication Administration Record [facility] Emergency Department [address] [place] [address] Phone #: ext- [phone] 03/28/2020 12:32 Patient: GOYO NUÑEZ Sex: M : 1935 Age: 84yWeight: 63.5 kgHeight/Length: 65 inBMI: 23.3ALLERGIES: No Known Drug AllergyDate/Time Medication Administered Medication Ordered Name Value Range Interpretation Code Description Data Izabela rce(s) Supporting Document(s) ID Date Data Source [id number] 03/28/2020 12:54:00 PM EDT [facility] 1 General Instructions [facility] Emergency Department [address] [place] [address] Phone #: ext- [phone] 03/28/2020 12:32 Patient: [...] Dispense 14tablet. Refills: 0. Substitution permitted.Pharmacy - [facility] [id number] [place], [place] [id number]. .Understanding of the discharge instructions verbalized by patient.Follow-up with: Fidel Marshall M.D., Urology, , [address] [place] [address], [phone] Follow up as scheduled. Reason for referral: evaluation, treatment and Neurogenic bladder / Foleyreplacements. ADDITIONAL INFORMATIONFoley Catheter Care 2 General Instructions [facility] Emergency Department [address] [place] [address] Phone #: ext- [phone] 03/28/2020 12:32 Patient: [...] by your healthcare provider 3 General Instructions [facility] Emergency Department [address] [place] [address] Phone #: ext- [phone] 03/28/2020 12:32 Patient: GOYO NUÑEZ Sex: M : 1935 Age: 84y Bladder pain or fullness Abdominal swelling, nausea or vomiting, or back pain Blood or urine leakage around the catheter Bloody urine coming from the catheter (if a new symptom) Catheter falls out Catheter stops draining for 6 hours Weakness, dizziness, or fainting [id number] [employer]. [address] [place] [address]. All rights reserved. This information is not [...] up to the kidney. 4 General Instructions [facility] Emergency Department [address] [place] [address] Phone #: ext- [phone] 03/28/2020 12:32 Patient: [...] urine and travel up to the General [facility] Emergency Department [address] [place] [address] Phone #: ext- [phone] 03/28/2020 12:32 Patient: [...] toilet, and clean your 6 General Instructions [facility] Emergency Department [address] [place] [address] Phone #: ext- [phone] 03/28/2020 12:32 Patient: [...] any findings that may affect your care.Call [phone] if any of these occur: Trouble breathing [...] pain that gets worse 7 General Instructions [facility] Emergency Department [address] [place] [address] Phone #: ext- [phone] 03/28/2020 12:32 Patient: GOYO NUÑEZ Sex: M DO B: 1935 Age: 84y Repeated vomiting, or you aren't able to keep medicine down Weakness or dizziness [phone] [employer]. [address] [place] [address]. All rights reserved. This information is not intended as asubstitute for professional medical care. Always follow your healthcare professional's instructions. You have been given the following additional information: Ahn Catheter, Care Bladder Infection, Male (Adult)(Electronically signed by Edgar Vera, Physician 03/28/2020 22:22) Name Value Range Interpretation Code Description Data Izabela rce(s) Supporting Document(s) ID Date Data Source [id number] 03/28/2020 12:54:00 PM EDT [facility] 1 Clinical Report - Nurses [facility] Emergency Department [address] [place] [address] Phone #: ext- [phone] 03/28/2020 12:32 Patient: GOYO NUÑEZ Sex: M : 1935 Age: 84yTRIAGEArrived by private vehicle. Historian: patient. ( Pt states noted urine leaking from penis around foleycatheter. Ahn placed yesterday, leaking noted today. Denies pain.).Triage time: 12:40 03/28/2020. Acuity: LEVEL 4.12:47 03/28/20.This started today.Treatment UTILITIES EQUIPMENT REPAIRER:None.SEPSIS SCREEN: SIRS Screen negative. Sepsis Screen negative. No suspected or confirmed signs ofinfection present. --12:47 03/28/20 Deanna Joy2:40 03/28/20. BP: 178/89. MAP: 118. HR: 80. RR: 16. O2 saturation: 100%. Temp: 98 F. Pain levelnow: 0/10. --12:47 03/28/20 Gary Joy Complaint: (leaking catheter).13:00 03/28/20. --13:56 03/28/20 Zachary Joy.Weight: 63.5 kg stated. Height/Length: 65 inches Per Patient. BMI: 23.3. --12:38 03/28/20 Zachary Joy.MedicationsUnknown. --13:54 03/28/20 Zachary Joy.AllergiesNo Known Drug Allergy. --13:54 03/28/20 Zachary Joy.Ernaqjl25:47 03/28/20.PAST MEDICAL HX: Immunizations: up-to-date.SOCIAL HX: Never [...] yourself?" and 2 Clinical Report - Nurses [facility] Emergency Department [address] [place] [address] Phone #: ext- [phone] 03/28/2020 12:32 Patient: [...] To treatment room. --12:47 03/28/20 Zachary Joy.PHYSICAL XPRENZUAKP73:50 03/28/20.GI / : ( [address], 10cc balloon. Urine leaking [...] ( Pt presented to ED with 16 singaporean ahn w/ 10ccballoon. 16 Armenian ahn removed. New 18 Armenian ahn inserted with minimal resistance, urine collected Pttolerated well. Will continue to monitor.). --13:22 03/28/20 Zachary Joy 13:45 03/28/20. ( New ahn catheter appears to no longer be leaking. Pt also states feels like it is no longer leakin. QMP aware.). --13:50 03/28/20 Zachary Joy.DISPOSITION / DISCHARGE 3 Clinical Report - Nurses [facility] Department [address] [place] [address] Phone #: ext- [phone] 03/28/2020 12:32 Patient: GOYO NUÑEZ Sex: M : 1935 Age: 84y 13:52 03/28/20. Departure time: 13:52 03/28/2020. Condition at departure: improved. No learning barriers present. Discharge instructions provided and reviewed with the patient. Reviewed referral to a urologist and primary care physician for followup. Patient verbalized understanding. Written instructions provided in Dominican. The patient was discharged by the physician. [...] rce(s) Supporting Document(s) ID Date Data Source [id number] 03/28/2020 12:54:00 PM EDT [facility] 1 Clinical Report - Physicians/Mid Levels [facility] Emergency Department [address] [place] [address] Phone #: ext- [phone] 03/28/2020 12:32 Patient: GOYO NUÑEZ Sex: M : 1935 Age: 84y Time Seen: 12:33 03/28/2020. Arrived- By private vehicle. Historian- patient. Disposition decision: 13:38 03/28/2020.HISTORY OF PRESENT ILLNESS Chief Complaint: AHN PROBLEM. (Leaking ahn cath). This started today and is still [...] Neck supple. 2 Clinical Report - Physicians/Mid [facility] Emergency Department [address] [place] [address] Phone #: ext- [phone] 03/28/2020 12:32 Patient: [...] 153) 3 Clinical Report - Physicians/Mid Levels [facility] Emergency Department [address] [place] [address] Phone #: ext- [phone] 03/28/2020 12:32 Patient: [...] cath 4 Clinical Report - Physicians/Mid Levels [facility] Emergency Department [address] [place] [address] Phone #: ext- [phone] 03/28/2020 12:32 Patient: [...] tablet. Refills: 0. Substitution permitted. Pharmacy - [facility] [address] [place], [place] [phone]. FaxNumber: [phone]. Understanding of the discharge instructions verbalized by patient. Follow- up with: Fidel Marshall M.D., Urology, , [address] [place] [address], [phone] Follow up as scheduled. Reason for referral: evaluation, treatment and Neurogenic bladder / Ahn replacements.(Electronically signed by Edgar Vera, Physician 03/28/2020 22:22) Name Value Range Interpretation Code Description Data Izabela rce(s) Supporting Document(s) ID Date Data Source [id number] 03/28/2020 12:54:00 PM EDT [facility] for GOYO NUÑEZ VisitID: [id number] Date: 9:27urine culture grew gram negative rods, [...] rce(s) Supporting Document(s) ID Date Data Source [id number] 03/28/2020 01:20:00 PM EDT [facility] ([facility] Name Value Range Interpretation Code Description Data Izabela rce(s) Supporting Document(s) Culture Urine Laboratory test result [facility] ([facility] _CULTURE URINE_ ^$[id number] ^^[id number] $$[id number] ^^695162 $$[id number] $$809332 $$984531 $$443016 $$296814 $$050072 $$771352 $$306847 $$448154 $$841234 $$937511 $$074249 $$208431 $$766444 $$364932 $$422810 $$027226 $$638265 $$822568 $$597959 $$836358 $$376106 $$533646 ^^718333 $$430204 $$729736 $$296665 -- Continued on next page -- Patient: CALLIE NANCE F Order: [id number] Page 2 Culture: CULTURE URINE Status: Final -- Continued on next page -- Patient: CALLIE NANCE F Order: [id number] Page 2 Culture: CULTURE URINE Status: Prelim -- Continued on next page -- Patient: CALLIE Young Order: [id number] Page 2 Culture: CULTURE URINE Status: Prelim -- Continued on next page -- Patient: CALLIE Young Order: Page 2 Culture: CULTURE URINE Status: Prelim $$[id number] $$[id number] REPORTED DATE/TIME: 04/03/2020 13:06 Culture: CULTURE URINE [...] braakii Flag: A Patient: CALLIE Young Order: [id number] Page 3 Culture: CULTURE URINE Status: Final [...] Trimethoprim/Sulfa S S P1 Test performed by: [employer] [facility] #: [id number] [address] [place] [address] [address] [id number] [facility] [address] Tire Repairer : Ranjit Caldera MD NPI #: Airplane Patrol Pilot : -- Continued on next page -- Patient: CALLIE Young Order: [id number] Page 3 Culture: CULTURE URINE Status: Prelim 04/02/20.0623.XMT.SENT REF 04/02/20.0723.XMT.SENT REF 04/02/20.0935.XMT.SENT REF 04/03/20.1354.XMT.SENT REF 04/03/201354. .to MAN SUAREZ via fax ID Date Data Source [id number] 03/28/2020 01:20:00 PM EDT [facility] ([facility] Name Value Range Interpretation Code Description Data Izabela rce(s) Supporting Document(s) Comprehensive Metabo Laboratory test result [facility] ([facility] COMPREHENSIVE METABOLIC PANEL Sodium 136 meq/L 134-153 [facility] Chloride 101 meq/L 98-107 [facility] Potassium 4.9 meq/L 3.6-5.0 [facility] Glucose 136 mg/dL 65-110 Above high normal [facility] ([facility] BUN 37 mg/dL 7-21 Above high normal [facility] ([facility] Co2 26 meq/L 22-30 [facility] Total Protein 6.3 g/dL 6.3-8.2 [facility] ([facility] Creatinine 1.9 mg/dL 0.7-1.5 Above high normal [facility] ([facility] BUN/Creat 19 8-27 [facility] A/G Ratio 1.9 0.8-2.0 [facility] Calcium 9.0 mg/dL 8.4-10.2 [facility] ([facility] Globulin 2.2 GM/DL 2.4-3.2 Below low normal [facility] ( [facility] Albumin 4.1 g/dL 3.9-5.0 [facility] Total Bili Laboratory test result 0.2-1.3 ME [facility] ([facility] Alkaline Phos 86 U/L 38-126 [facility] Sgot/Ast 19 U/L 5-40 [facility] SGPT/Alt 17 U/L 7-56 [facility] Age 84 yrs [facility] Anion Gap 9.0 mmol/L 8.0-16.0 [facility] Afr Amer GFR 44 mL/min [facility] Male GFR Interprentation [...] mL/min Normal Non-Aa GFR 36 mL/min [facility] ID Date Data Source [id number] 03/28/2020 01:20:00 PM EDT [facility] ([facility] Name Value Range Interpretation Code Description Data Izabela rce(s) Supporting Document(s) Urinalysis Laboratory test result [facility] ([facility] URINALYSIS Source Laboratory test result [facility] ([facility] Clarity Laboratory test result [facility] ([facility] Spec [place] 1.010 1.001-1.030 [facility] ([facility] Color Laboratory test result [facility] ([facility] Glucose Laboratory test result [facility] ([facility] Bilirubin Laboratory test result [facility] ([facility] pH 6.5 5-9 [facility] Protein 100 Abnormal (applies to non-numeric res ults) [facility] ([facility] Ketone Laboratory test result [facility] ([facility] Nitrite Laboratory test result [facility] ([facility] Urobilinogen Laboratory test result [facility] ([facility] Blood 250 Abnormal (applies to non-numeric res ults) [facility] ([facility] Leuk Est 500 Abnormal (applies to non-numeric res ults) [facility] ([facility] WBC Laboratory test result Abnormal (applies to non -numeric results) [facility] ([facility] Microscopic Laboratory test result M [facility] ([facility] RBC Laboratory test result Abnormal (applies to non -numeric results) [facility] ([facility] Bacteria Laboratory test result Abnormal (applies to non -numeric results) [facility] ([facility] Epithelial Laboratory test result [facility] ([facility] ID Date Data Source [id number] 03/28/2020 01:20:00 PM EDT [facility] ([facility] Name Value Range Interpretation Code Description Data Izabela rce(s) Supporting Document(s) CBC W/Automated Diff Laboratory test result [facility] ([facility] COMPLETE BLOOD COUNT WBC 4.4 10^3/uL 4.2-11.0 [facility] Hemoglobin 11.5 g/dL 14.0-16.0 Below low normal [facility] ( [facility] RBC 3.79 10^6/uL 4.50-6.30 Below low normal [facility] ([facility] MCH 30.3 pg 27.0-34.0 [facility] ([facility] MCV 92.9 fL 80.0-94.0 [facility] ([facility] Hematocrit 35.2 % 41.0-51.0 Below low normal [facility] ( [facility] RDW 12.2 % 11.5-14.8 [facility] ([facility] Platelets 188 10^3/uL 150-450 [facility] MCHC 32.7 g/dL 31.0-36.0 [facility] ([facility] Lymph 34.5 % 25.0-40.0 [facility] MPV 10.1 fL 7.4-10.4 [facility] Neut 48.6 % 37.0-80.0 [facility] Otero 10.6 % 3.0-8.0 Above high normal [facility] Baso 0.9 % 0.0-2.0 [facility] Eos 5.2 % 0.0-7.0 [facility] %NRBC 0.0 % 0.0-0.0 [facility] #Neut 2.16 10^3/uL 2.00-6.90 [facility] %Ig 0.2 % 0.0-0.0 Above high normal [facility] #Lymph 1.53 10^3/uL 0.60-3.40 [facility] #Eos 0.23 10^3/uL 0.00-0.70 [facility] #Otero 0.47 10^3/uL 0.00-0.90 [facility] #NRBC 0.00 10^3/uL 0.00-0.00 [facility] #Ig 0.01 10^3/uL 0.00-0.10 [facility] #Baso 0.04 10^3/uL 0.00-0.20 [facility] Manual Diff Laboratory test result M [facility] ([facility] RBC Morph Laboratory test result [facility] ([facility] ID Date Data Source [id number] 04/03/2020 01:54:00 PM EDT [facility] Name Value Range Interpretation Code Description Data Izabela rce(s) Supporting Document(s) CULTURE URINE [facility] _CULTURE URINE_$$[id number]$$220015$$743182$$946040$$004502$$841825$$340057$$611412$$505757$$ 435532$$668809$$140655$$305635$$026966$$922856$$960237$$140863$$338892$$374326$$ 796594$$119753$$445634$$781338$$765863$$349018$$842200$$560209 -- Continued on next page --Patient: CALLIE NANCE F Order: [id number] Page 2Culture: CULTURE URINE Status: Final ==== -- Continued on next page --Patient: CALLIE NANCE F Order: [id number] Page 2Culture: CULTURE URINE Status: Prelim ===== -- Continued on next page --Patient: CALLIE NANCE F Order: [id number] Page 2Culture: CULTURE URINE Status: Prelim ===== -- Continued on next page --Patient: CALLIE NANCE F Order: [id number] Page 2Culture: CULTURE URINE Status: Prelim =====$$[id number]$$[id number] DATE/TIME: 04/03/2020 13:06Culture: CULTURE URINE Status: FinalIsolate 1 Pseudomonas aeruginosa Flag: A . . . . . . .5Greater than 100,000 colony forming units per mL Previous result entered on 04/02/2020 07:17 ET Gram negative rods Previous result entered on 04/01/2020 11:15 ET Gram negative rods Previous result entered on 03/31/2020 05:40 ET Gram negative rodsUrine Culture,Comprehensive: [id number] aeruginosa Flag: AIsolate 2 Citrobacter braakii Flag: A . . . . . . .150,000-100,000 colony forming units per mL Previous result entered on 04/02/2020 07:17 ET Gram negative rods25,000-50,000 colony forming units per mLCitrobacter braakii Flag: APatient: CALLIE Young Order: [id number] Page 3Culture: CULTURE URINE Status: Final ISOLATE [...] Trimethoprim/Sulfa S S P1 Test performed by: [facility] #: [id number] [address] [id number] [facility] [id number] Director : Ranjit Caldera MD NPI #:Airplane Patrol Pilot : -- Continued on next page --Patient: CALLIE Young Order: [id number] Page 3Culture: CULTURE URINE Status: Prelim ===== 04/02/20.0623.XMT.SENT REF 04/02/20.0723.XMT.SENT REF 04/02/20.0935.XMT.SENT REF 04/03/20.1354.XMT.SENT REF 04/03/20.1354. .to MAN PATTRAFAEL via fax ID Date Data Source [id number] 03/28/2020 02:02:00 PM EDT [facility] Name Value Range Interpretation Code Description Data Izabela rce(s) Supporting Document(s) COMPREHENSIVE METABOLIC PANEL [facility] COMPREHENSIVE METABOLIC PANEL Sodium [Moles/volume] in Serum or Plasma 136 mEq/L 134 - 153 [facility] Potassium [Moles/volume] in Serum or Plasma 4.9 mEq/L 3.6 - 5.0 [facility] Chloride [Moles/volume] in Serum or Plasma 101 mEq/L 98 - 107 [facility] Carbon dioxide, total [Moles/volume] in Serum or Plasma 26 MEQ/L 22 - 30 [facility] Glucose [Mass/volume] in Serum or Plasma 136 MG/DL 65 - 110 [facility] BUN 37 MG/DL 7 - 21 H [facility] Creatinine [Mass/volume] in Serum or Plasma 1.9 MG/DL 0.7 - 1.5 H [facility] BUN/CREAT 19 8 - 27 [facility] Protein [Mass/volume] in Serum or Plasma 6.3 G/DL 6.3 - 8.2 [facility] Albumin [Mass/volume] in Serum or Plasma 4.1 G/DL 3.9 - 5.0 [facility] Globulin [Mass/volume] in Serum by calculation 2.2 GM/DL 2.4 - 3.2 L [facility] A/G RATIO 1.9 0.8 - 2.0 [facility] Calcium [Mass/volume] in Serum or Plasma 9.0 MG/DL 8.4 - 10.2 [facility] Bilirubin.total [Mass/volume] in Serum or Plasma <0.7 MG/DL 0.2 - 1.3 [facility] Alkaline phosphatase [Enzymatic activity/volume] in Serum or Plasma 86 U/L 38 - 126 [facility] Aspartate aminotransferase [Enzymatic activity/volume] in Serum or Plasma 19 U/L 5 - 40 [facility] Alanine aminotransferase [Enzymatic activity/volume] in Seru m or Plasma 17 U/L 7 - 56 [facility] Anion gap 3 in Serum or Plasma 9.0 mmol/L 8.0 - 16.0 [facility] AGE 84 yrs [facility] al NON-AA GFR 36 mL/min [facility] AFR AMER GFR 44 mL/min [facility] Male GFR In terprentation 20-49 [...] >32 mL/min Normal ID Date Data Source [id number] 03/28/2020 01:58:00 PM EDT [facility] Name Value Range Interpretation Code Description Data Izabela rce(s) Supporting Document(s) URINALYSIS [facility] URINALYSIS SOURCE R [facility] al COLOR yellow NORMAL: Yellow [facility] CLARITY hazy NORMAL: Clear [facility] Specific gravity of Urine by Test strip 1.010 1.001 - 1.030 [facility] pH 6.5 5 - 9 [facility] Glucose [Mass/volume] in Urine by Test strip NORM NORMAL: Negat asuncion [facility] Bilirubin.total [Presence] in Urine by Test strip NEG NORMAL: Negative [facility] Ketones [Presence] in Urine by Test strip NEG NORMAL: Negative [facility] Protein [Mass/volume] in Urine by Test strip 100 NORMAL: Negat asuncion [facility] Nitrite [Presence] in Urine by Test strip NEG NORMAL: Negative [facility] BLOOD 250 NORMAL: Negative [facility] Leukocyte esterase [Presence] in Urine by Test strip 500 MICHELLE L: Negative [facility] Urobilinogen [Mass/volume] in Urine by Test strip NOR less brittany n 1.0 mg/dL [facility] MICROSCOPIC See Below [facility] ital WBC TNTC NORMAL: NONE SEEN A [facility] Erythrocytes [#/volume] in Urine by Test strip 10 - 15 NORMAL: NON E SEEN A [facility] EPITHELIAL FEW NORMAL: NONE SEEN [facility] Bacteria [Presence] in Urine sediment by Light microscopy 2+ MOD NORMAL: NONE SEEN A [facility] ID Date Data Source [id number] 03/28/2020 01:43:00 PM EDT [facility] Name Value Range Interpretation Code Description Data Izabela rce(s) Supporting Document(s) CBC W/AUTOMATED DIFF [facility] COMPLETE BLOOD COUNT Leukocytes [#/volume] in Blood by Automated count 4.4 10^3/uL 4.2 - 1 1.0 [facility] Erythrocytes [#/volume] in Blood by Automated count 3.79 10^6/uL 4. 50 - 6.30 L [facility] Hemoglobin [Mass/volume] in Blood 11.5 g/dL 14.0 - 16.0 L [facility] Hematocrit [Volume Fraction] of Blood by Automated count 35.2 % 4 1.0 - 51.0 L [facility] Erythrocyte mean corpuscular volume [Entitic volume] by Auto mated count 92.9 fL 80.0 - 94.0 [facility] Erythrocyte mean corpuscular hemoglobin [Entitic mass] by Automated count 30.3 pg 27.0 - 34.0 [facility] Erythrocyte mean corpuscular hemoglobin concentration [Mass/volume] by Automated count 32.7 g/dL 31.0 - 36.0 [facility] Erythrocyte distribution width [Ratio] by Automated count 12.2 % 11.5 - 14.8 [facility] Platelets [#/volume] in Blood by Automated count 188 10^3/uL 150 - 45 0 [facility] Platelet mean volume [Entitic volume] in Blood by Automated count 10.1 fL 7.4 - 10.4 [facility] Neutrophils/100 leukocytes in Blood by Automated count 48.6 % 37. 0 - 80.0 [facility] Lymphocytes/100 leukocytes in Blood by Manual count 34.5 % 25.0 - 40.0 [facility] Monocytes/100 leukocytes in Blood by Automated count 10.6 % 3.0 - 8.0 H [facility] Eosinophils/100 leukocytes in Blood by Automated count 5.2 % 0.0 - 7.0 [facility] Basophils/100 leukocytes in Blood by Automated count 0.9 % 0.0 - 2.0 [facility] %IG 0.2 % 0.0 - [facility] 0.[facility] % 0.0 - 0.0 [facility] Neutrophils [#/volume] in Blood by Automated count 2.16 10^3/uL 2.00 - 6.90 [facility] Lymphocytes [#/volume] in Blood by Automated count 1.53 10^3/uL 0.60 - 3.40 [facility] Monocytes [#/volume] in Blood by Automated count 0.47 10^3/uL 0.00 - 0.90 [facility] Eosinophils [#/volume] in Blood by Automated count 0.23 10^3/uL 0.00 - 0.70 [facility] Basophils [#/volume] in Blood by Automated count 0.04 10^3/uL 0.00 - 0.20 [facility] #IG 0.01 10^3/uL 0.00 - 0.10 [facility] #NRBC 0.00 10^3/uL 0.00 - 0.00 [facility] MANUAL DIFF NOT INDICATED [facility] RBC MORPH NOT INDICATED [facility] Procedure Social History Code Duration Value Status Description Data Source(s ) Smoking 01/02/2021 12:00:00 AM EDT Patient has never smoked co mpleted Patient has never smoked [facility] ([facility] ) Smoking 12/25/2020 12:00:00 AM EDT Never Smoked Cigars complet ed Never Smoked Cigars [facility] ([facility]) Alcohol intake 06/14/2020 12:00:00 AM EST Current drinker of al cohol (finding) completed Current drinker of alcohol (finding) [facility] Tobacco use and exposure 06/14/2020 12:00:00 AM EST Never used co mpleted Never used [facility] Smoking 06/14/2020 12:00:00 AM EST Never smoker completed Never s [facility] Vital Signs ID Date Data Source UNK Name Value Range Interpretation Code Description Data Source(s) Systolic blood pressure 118 mm[Hg] 118 mm[Hg] M [facility] ([facility] Diastolic blood pressure 78 mm[Hg] 78 mm[Hg] [facility] ([facility] Body temperature 97.3 [degF] 97.3 [degF] [facility] ([facility] Heart rate 74 /min 74 /min [facility] ([facility] Respiratory rate 18 /min 18 /min [facility] ( [facility] Body height 62 [in_i] 62 [in_i] [facility] ([facility] 5'2" Body weight 135.00 [lb_av] 135.00 [lb_av] MED[facility] T ([facility] [place] body weight 118 [lb_av] 118 [lb_av] [facility] T ([facility] Body mass index (BMI) [Ratio] 24.7 kg/m2 24.7 k g/m2 [facility] ([facility] Oxygen saturation in Arterial blood by Pulse oximetry 99 % 99 % [facility] ([facility] ([place]), ([place] Air) Oxygen saturation in Arterial blood by Pulse oximetry 99 % 99 % [facility] ([facility]) Systolic blood pressure 116 mm[Hg] 116 mm[Hg] M EDENT ([facility]) Diastolic blood pressure 70 mm[Hg] 70 mm[Hg] [facility] ([facility]) Heart rate 81 /min 81 /min [facility] ([facility]) Body temperature 97.1 [degF] 97.1 [degF] [facility] ([facility]) Systolic blood pressure 128 mm[Hg] 128 mm[Hg] M EDENT ([facility]) Diastolic blood pressure 81 mm[Hg] 81 mm[Hg] [facility] ([facility]) Heart rate 76 /min 76 /min [facility] ([facility] Respiratory rate 16 /min 16 /min [facility] ( [facility] Body height 62 [in_i] 62 [in_i] [facility] ([facility] 5'2" [place] body weight 118 [lb_av] 118 [lb_av] MED[facility] T ([facility] Body mass index (BMI) [Ratio] 24.9 kg/m2 24.9 k g/m2 [facility] ([facility] Oxygen saturation in Arterial blood by Pulse oximetry 96 % 96 % [facility] Body weight 136.00 [lb_av] 136.00 [lb_av] MED[facility] T ([facility] Systolic blood pressure 116 mm[Hg] 116 mm[Hg] M EDENT ([facility] Diastolic blood pressure 74 mm[Hg] 74 mm[Hg] [facility] ([facility] Body temperature 97.9 [degF] 97.9 [degF] [facility] ([facility] Respiratory rate 20 /min 20 /min [facility] ( [facility]) Oxygen saturation in Arterial blood by Pulse oximetry 94 % 94 % [facility] ([facility]) Systolic blood pressure 118 mm[Hg] 118 mm[Hg] M EDENT ([facility]) Diastolic blood pressure 66 mm[Hg] 66 mm[Hg] [facility] ([facility]) Heart rate 80 /min 80 /min [facility] ([facility]) Body temperature 96.9 [degF] 96.9 [degF] [facility] ([facility]) Body weight 136.25 [lb_av] 136.25 [lb_av] MED[facility] T ([facility]) Body weight 61.803 kg 61.803 kg [facility] ([facility]) Systolic blood pressure 110 mm[Hg] 110 mm[Hg] [...] Body height 62 [in_i] 62 [in_i] [facility] ([facility] 5'2" Body weight 136.00 [lb_av] 136.00 [lb_av] MED[facility] T ([facility] [place] body weight 118 [lb_av] 118 [lb_av] MEDEN [...] pressure 120 mm[Hg] 120 mm[Hg] M EDENT ([facility] Diastolic blood pressure 70 mm[Hg] 70 mm[Hg] [facility] ([facility] Body temperature 97.7 [degF] 97.7 [degF] [facility] ([facility] Body height 62 [in_i] 62 [in_i] [facility] ([facility] 5'2" Body weight 135.00 [lb_av] 135.00 [lb_av] MED[facility] T ([facility] [place] body weight 118 [lb_av] 118 [lb_av] [facility] T ([facility] Body mass index (BMI) [Ratio] 24.7 kg/m2 24.7 k g/m2 [facility] ([facility] Respiratory rate 16 /min 16 /min [facility] ( [facility] Heart rate 73 /min 73 /min [facility] ([facility] Oxygen saturation in Arterial blood by Pulse oximetry 96 % 96 % [facility] ([facility] Systolic blood pressure 112 mm[Hg] 112 mm[Hg] M EDENT ([facility]) Diastolic blood pressure 62 mm[Hg] 62 mm[Hg] [facility] ([facility]) Heart rate 101 /min 101 /min [facility] ([facility]) Respiratory rate 20 /min 20 /min [facility] ( [facility]) Oxygen saturation in Arterial blood by Pulse oximetry 94 % 94 % [facility] ([facility]) Systolic blood pressure 126 mm[Hg] 126 mm[Hg] [...] Body height 62 [in_i] 62 [in_i] [facility] ([facility] 5'2" Body weight 139.00 [lb_av] 139.00 [lb_av] MED[facility] T ([facility] [place] body weight 118 [lb_av] 118 [lb_av] MEDEN [...] Body height 62 [in_i] 62 [in_i] [facility] ([facility] 5'2" Body weight 133.00 [lb_av] 133.00 [lb_av] MED[facility] T ([facility] [place] body weight 118 [lb_av] 118 [lb_av] [facility] T ([facility] Body mass index (BMI) [Ratio] 24.3 kg/m2 24.3 k g/m2 [facility] ([facility] Oxygen saturation in Arterial blood by Pulse oximetry 99 % 99 % [facility] ([facility] Heart rate 90 /min 90 /min [facility] ([facility] Respiratory rate 18 /min 18 /min [facility] ( [facility] Body height 62 [in_i] 62 [in_i] [facility] ([facility] 5'2" Body mass index (BMI) [Ratio] 20.8 kg/m2 20.8 k g/m2 [facility] ([facility] Body weight 114.00 [lb_av] 114.00 [lb_av] MED[facility] T ([facility] [place] body weight 118 [lb_av] 118 [lb_av] MED[facility] T ([facility] Oxygen saturation in Arterial blood by Pulse oximetry 97 % 97 % [facility] ([facility] Systolic blood pressure 110 mm[Hg] 110 mm[Hg] M EDENT ([facility] Diastolic blood pressure 80 mm[Hg] 80 mm[Hg] [facility] ([facility] Body temperature 97.6 [degF] 97.6 [degF] [facility] ([facility] Systolic blood pressure 129 mm[Hg] 129 mm[Hg] M EDENT ([facility]) Diastolic blood pressure 75 mm[Hg] 75 mm[Hg] [facility] ([facility]) Heart rate 90 /min 90 /min [facility] ([facility]) Body temperature 97.3 [degF] 97.3 [degF] [facility] ([facility]) Respiratory rate 14 /min 14 /min [facility] Oxygen saturation in Arterial blood by Pulse oximetry 98 % 98 % [facility] ([facility]) Body weight 128.00 [lb_av] 128.00 [lb_av] MEDEN T ([facility]) Body weight 58.061 kg 58.061 kg [facility] ([facility]) Body temperature 97.5 [degF] 97.5 [degF] [facility] ([facility]) Respiratory rate 16 /min 16 /min [facility] ( [facility]) Oxygen saturation in Arterial blood by Pulse oximetry 95 % 95 % [facility] ([facility]) Systolic blood pressure 172 mm[Hg] 172 mm[Hg] M EDENT ([facility]) Heart rate 88 /min 88 /min [facility] ([facility]) Diastolic blood pressure 93 mm[Hg] 93 mm[Hg] [facility] ([facility]) Systolic blood pressure 147 mm[Hg] 147 mm[Hg] M EDENT ([facility]) Diastolic blood pressure 80 mm[Hg] 80 mm[Hg] [facility] ([facility]) Heart rate 90 /min 90 /min [facility] ([facility]) Body temperature 97.3 [degF] 97.3 [degF] [facility] ([facility]) Respiratory rate 16 /min 16 /min [facility] ( [facility]) Oxygen saturation in Arterial blood by Pulse oximetry 94 % 94 % [facility] ([facility]) Body weight 143.00 [lb_av] 143.00 [lb_av] MEDEN T ([facility]) Body weight 64.865 kg 64.865 kg [facility] ([facility]) Systolic blood pressure 128 mm[Hg] 128 mm[Hg] [...] Body height 62 [in_i] 62 [in_i] [facility] ([facility] 5'2" Body weight 148.00 [lb_av] 148.00 [lb_av] MED[facility] T ([facility] [place] body weight 118 [lb_av] 118 [lb_av] MED[facility] T ([facility] Body mass index (BMI) [Ratio] 27.1 kg/m2 27.1 k g/m2 [facility] ([facility] Oxygen saturation in Arterial blood by Pulse oximetry 98 % 98 % [facility] ([facility] Systolic blood pressure 140 mm[Hg] 140 mm[Hg] M EDENT ([facility]) Diastolic blood pressure 67 mm[Hg] 67 mm[Hg] [facility] ([facility]) Heart rate 77 /min 77 /min [facility] ([facility]) Respiratory rate 20 /min 20 /min [facility] ( [facility]) Oxygen saturation in Arterial blood by Pulse oximetry 96 % 96 % [facility] ([facility]) Systolic blood pressure 136 mm[Hg] 136 mm[Hg] M EDENT ([facility] Diastolic blood pressure 70 mm[Hg] 70 mm[Hg] [facility] ([facility] Body temperature 98.0 [degF] 98.0 [degF] [facility] ([facility] Heart rate 88 /min 88 /min [facility] ([facility] Respiratory rate 16 /min 16 /min [facility] ( [facility] Body height 62 [in_i] 62 [in_i] [facility] ([facility] 5'2" Body weight 142.00 [lb_av] 142.00 [lb_av] MED[facility] T ([facility] [place] body weight 118 [lb_av] 118 [lb_av] MED[facility] T ([facility] Body mass index (BMI) [Ratio] 26.0 kg/m2 26.0 k g/m2 [facility] ([facility] Oxygen saturation in Arterial blood by Pulse oximetry 96 % 96 % [facility] ([facility] Systolic blood pressure 123 mm[Hg] 123 mm[Hg] M EDENT ([facility]) Diastolic blood pressure 68 mm[Hg] 68 mm[Hg] [facility] ([facility]) Heart rate 73 /min 73 /min [facility] ([facility]) Respiratory rate 22 /min 22 /min [facility] ( [facility]) Oxygen saturation in Arterial blood by Pulse oximetry 95 % 95 % [facility] ([facility]) Systolic blood pressure 128 mm[Hg] 128 mm[Hg] M [facility]ENT ([facility]) Diastolic blood pressure 78 mm[Hg] 78 mm[Hg] [facility] ([facility]) Heart rate 77 /min 77 /min [facility] ([facility]) Body temperature 97.1 [degF] 97.1 [degF] [facility] ([facility]) Respiratory rate 16 /min 16 /min [facility] ( [facility]) Oxygen saturation in Arterial blood by Pulse oximetry 96 % 96 % [facility] ([facility]) Body weight 142.00 [lb_av] 142.00 [lb_av] MEDEN T ([facility]) Body weight 64.411 kg 64.411 kg [facility] ([facility]) ID Date Data Source [id number] 04/02/2021 08:30:38 AM EDT [facility] Name Value Range Interpretation Code Description Data Source(s) WEIGHT RECORDED 135.00 pounds 135.00 pounds [facility] 60 Inches 060 Inches [facility] ID Date Data Source [id number] 02/20/2021 10:08:57 AM EDT [facility] Name Value Range Interpretation Code Description Data Source(s) WEIGHT RECORDED 125.00 pounds 125.00 pounds [facility] 60 Inches 060 Inches [facility] ID Date Data Source [id number] 11/06/2020 08:05:04 PM EDT [facility] Name Value Range Interpretation Code Description Data Source(s) WEIGHT RECORDED 139.00 pounds 139.00 pounds [facility] 65 Inches 065 Inches [facility] ID Date Data Source [id number] 08/17/2020 04:26:53 PM EST [facility] Name Value Range Interpretation Code Description Data Source(s) WEIGHT RECORDED 130.00 pounds 130.00 pounds [facility] Height 60 Inches 060 Inches [facility] ID Date Data Source [id number] 06/26/2020 04:03:32 PM [facility] Name Value Range Interpretation Code Description Data Source(s) WEIGHT RECORDED 145.5 lb 145.5 lb [facility] Body height Measured 63 in 63 in Upst [facility] TRANSFER FROM [facility] Patient Treatment Plan of Care Planned Activity Planned Date Details Description Data Source (s) Magnesium Oxide 400 MG Oral Tablet 06/21/2020 12:00:00 AM [facility] dextrose 50 % IV solution 25 mL 06/14/2020 07:48:04 PM [facility] Glucagon 1 MG Injection 06/14/2020 05:08:00 PM [facility] Glucose 0.417 MG/MG Oral Gel 06/14/2020 05:08:00 PM [facility] Metformin hydrochloride 500 MG Oral Tablet 11/16/2019 12:00:00 AM E [facility] Lisinopril 5 MG Oral Tablet 06/02/2019 12:00:00 AM [facility]
[2021-04-29 14:33] LABS: ALBUMIN 2.7 GM/DL (3.2-5.2); BILIRUBIN,DIRECT 0.2 MG/DL (0.0-0.2); BILIRUBIN,TOTAL 0.3 MG/DL (0.2-1.0); CALCIUM LEVEL 8.6 MG/DL (8.8-10.2); CREATININE FOR GFR 1.79 MG/DL (0.70-1.30); GLOMERULAR FILTRATION RATE 38.6 (>35); POTASSIUM SERUM 3.4 MEQ/L (3.5-5.1); TOTAL PROTEIN 5.8 GM/DL (6.4-8.2)
[2021-04-29 14:35] LABS: CK-MB VALUE MASS 16.6 NG/ML (<3.6); MB/CK RELATIVE INDEX 4.35 (< OR =4); TROPONIN I 0.06 NG/ML (< 0.10)
--- NOTE | 2021-04-29 14:35 | REP ---
INDICATION: LLE swelling. COMPARISON: None. TECHNIQUE: Multiple ultrasonographic images of the deep venous structures of the left lower extremity were obtained from the inguinal ligament to the ankle. Venous compression techniques, color doppler imaging, and augmentation techniques were also obtained where appropriate. As per the ACR guidelines the anterior tibial vein can not be effectively evaluated. Only compression techniques in the calf on the peroneal and posterior tibial veins was attempted/performed. FINDINGS: There is no abnormal echogenic material seen within any of the visualized deep venous structures that would suggest acute thrombosis. Coaptation is unremarkable throughout. Doppler interrogation shows an expected response to respiratory variability and augmentation in the thigh. Compression techniques in the calf showed no abnormality. The color flow images show what appears to be a normal vascular pattern throughout the thigh. IMPRESSION: There is no ultrasonographic evidence of deep venous thrombosis involving any of the visualized deep venous structures of the left lower extremity as described above.. <Electronically signed by Sameer Zaidi > 04/29/21 [id number]
--- NOTE | 2021-04-29 15:09 | REP ---
INDICATION: abdominal pain; hx of bladder CA COMPARISON: 04/10/2021 TECHNIQUE: Axial noncontrast images from the lung bases to the pubic symphysis with coronal and sagittal reformations. This CT examination was performed using the following dose reduction techniques: Automated exposure control, adjustment of mA and/or kv according to the patient's size, and use of iterative reconstruction technique. FINDINGS: Evaluation is significantly limited due to lack of contrast and beam hardening artifact from the upper extremities at the patient's side. Lung bases demonstrate chronic appearing changes without obvious consolidation, mass or effusion. Liver demonstrates few scattered rounded hypodensities most likely representing the metastatic lesions Spleen demonstrates few scattered calcifications consistent with granulomatous change. Pancreas, gallbladder, bilateral adrenal glands and kidneys are relatively stable with asymmetric atrophy to the left kidney, bilateral ureteral stents, and right renal hypodensity again noted. Small to moderate amount of ascites along with scattered generalized mesenteric stranding and suspected intra-abdominal/mesenteric adenopathy noted. No obvious bowel obstruction or free air to suggest bowel perforation. Colonic diverticulosis and moderate fecal stasis are identified. Pelvis is severely limited in evaluation. The bladder and prostate gland are incompletely evaluated although bladder wall irregularity/thickening is suspected as well as findings to suggest prior TURP. The rectosigmoid is incompletely evaluated and thickening to the distal sigmoid and rectum cannot be excluded. Osseous structures demonstrate age-related osteopenia and advanced degenerative changes scattered lytic lesions within the pelvis are nonspecific and may represent degenerative versus neoplastic changes. IMPRESSION: 1. 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 2. Incomplete poorly evaluated changes to the bladder/prostate gland and rectosigmoid. <Electronically signed by Cirilo Daley > 04/29/21 [id number]
[2021-04-29] MEDS ORDERED: NS 500 ML IV ONE (16:05)
[2021-04-29] MEDS ORDERED: ONDANSETRON 4 MG ORAL DISINTEGRATING TAB PO ONE (16:35)
[2021-04-29] MEDS ORDERED: HOME MED LIST COMPLETE! XX SCH (17:05)
[2021-04-29] MEDS ORDERED: ONDA4TAB6 PO (17:57)
[2021-04-29 18:00] VITALS: BP 133/78
[2021-04-29 18:21] LABS: RSV AMPLIFICATION NEGATIVE (NEGATIVE)
--- NOTE | 2021-04-29 18:41 | ECGEPIP ---
[facility] - ED Test Date: 2021-04-29 Pat Name: GOYO LEDESMA Department: Room: - Gender: Male Internal Medicine Physician Assistant: lorraine : 1935 Requested By: CORIE CALZADA Order Number: [id number] Reading MD: Max Ku Measurements Intervals [place] Rate: 67 P: -15 IN: 130 QRS: -5 QRSD: 92 T: -19 QT: 438 QTc: 462 Interpretive Statements Sinus rhythm with premature supraventricular complexes Low voltage QRS Incomplete right bundle branch block SIMILAR TO 06/13/20 Electronically Signed on 04-29-2021 18:41:09 EST by Max Ku
--- NOTE | 2021-04-30 19:48 | ED PDOC ---
Post-Departure Follow-Up radiology repor tfaxed to Sneha Carrion MD Apr 30, 2021 19:48
== END 2021-04-29 18:28 | disposition home or self-care (01) ==
LOC: M ED 12:27
DX: K62.5 Hemorrhage of anus and rectum (principal); D64.9 Anemia, unspecified; R11.2 Nausea with vomiting, unspecified; C67.9 Malignant neoplasm of bladder, unspecified; C61 Malignant neoplasm of prostate; R22.42 Localized swelling, mass and lump, left lower limb; I45.19 Other right bundle-branch block; Z79.899 Other long term (current) drug therapy
CPT/HCPCS: 74176; 80048; 80076; 82550; 82553; 83605; 83690; 84484; 85025; 85610; 85730; 86850; 86900; 86901; 86920; 87631; 93005; 93041; 93971; 99285; J2270; Q0162

== ENCOUNTER 2021-05-01 12:23 | Inpatient (IN) | payer MEDICARE ==
[~2021-05-01] VITALS: Ht 162.6 cm; Wt 60.5 kg
[~2021-05-01 12:23] MED LIST changes: +DIPH2.5T14 PO; +ONDA4TAB6 PO; +PANT40TA29 PO
--- OUTSIDE RECORDS SUMMARY | 2021-05-01 13:08 | CCD ---
Author Author [facility] Organization [facility] Address Unknown Phone Unavailable Care Team Providers Care Engineering Technician Parking Name Role Phone ANGELLA Belcher MD Unavailable Unavailable ANGELLA Belcher MD Unavailable Unavailable ANGELLA Belcher MD Unavailable Unavailable ANGELLA Belcher MD Unavailable Unavailable ANGELLA Belcher MD Unavailable Unavailable ANGELLA Belcher MD Unavailable Unavailable Bartoszewsjanneth, Shirley Wagoner MS, [...] ailable Rain ORANTES DPM Unavailable Unavailable Rain ORANTES DPM Unavailable Unavailable Rain ORANTES DPM Unavailable Unavailable Rain ORANTES DPM Unavailable Unavailable Rain ORANTES DPM Unavailable Unavailable Rain ORANTES DPM Unavailable Unavailable Rain ORANTESM Unavailable Unavailable Rain ORANTESM Unavailable Unavailable Rain ORANTESM Unavailable Unavailable Rain ORANTESM Unavailable Unavailable Rain ORANTESM Unavailable Unavailable Rain [...] Unavailable Unavailable MARAHHISANDY Rodrigez MD Unavailable Unavailable GAMBHISANDY Rodrigez MD Unavailable Unavailable GAMBHISANDY Rodrigez MD Unavailable Unavailable GAMBHISANDY Rodrigez MD Unavailable Unavailable GAMBHISANDY Rodrigez MD Unavailable Unavailable GAMBHISANDY Rodrigez MD Unavailable Unavailable GAMBHISANDY Rodrigez MD Unavailable Unavailable GAMBHISANDY Rodrigez MD Unavailable Unavailable GAMBHISANDY Rodrigez MD Unavailable Unavailable Dayne XAVIER MD Unavailable Unavailable Dayne XAVIER MD Unavailable Unavailable Dayne XAVIER MD Unavailable Unavailable Dayne XAVIER MD Unavailable Unavailable Dayne XAVIER MD Unavailable Unavailable Dayne XAVIER MD Unavailable Unavailable Dayne XAVIER MD Unavailable Unavailable Dayne XAVIER MD Unavailable Unavailable Dayne XAVIER MD Unavailable Unavailable Ni CAMILO MD Unavailable Unavailable Ni CAMILO MD Unavailable Unavailable Ni CAMILO MD Unavailable Unavailable Ni CAMILO MD Unavailable Unavailable OBNi ERIC MD Unavailable Unavailable Ni CAMILO MD Unavailable Unavailable OBNi ERIC MD Unavailable Unavailable Ni ACMILO MD Unavailable Unavailable Ni CAMILO MD Unavailable Unavailable OBNi ERIC MD Unavailable Unavailable OBEN, T FIDEL MD [...] T FIDEL MD Unavailable Unavailable OBEN, T FIEDL MD Unavailable Unavailable OBEN, T FIDEL MD [...] Blake Frankel MD Unavailable Unavailable Leggat Blake Frankle MD Unavailable Unavailable Leggat Blake Frankel MD [...] Unavailable Leggat Blake Frankel MD Unavailable Unavailable KNOHL, J DEEPALI MD [...] Unavailable Unavailable Dayne SERRANO MD Unavailable Unavailable Fish, J Eber Unavailable [...] is protected by Article 27-F of the [facility] Public Health law. If you continue you may have access to information: Regarding HIV / AIDS; Provided by facilities licensed or operated by the [facility] Office of Mental Health; or Provided by the [facility] Office for People With Developmental Disabilities. If such information is present, then the following [facility] mandated warning applies: This information has [...] Environmental Allergies No Known Environmental Al lergies [facility] No Known Food Allergies No Known Food Allergies [facility] Drug allergy oxybutynin oxybutynin ITCHING, RASH [facility] [id number] [facility] Family History Family Member Name Family Member Gender Family Member Status Date o f Status Description Data Source(s) Unknown Unknown Problem [facility] ([facility] Aunts and uncles Encounters Encounter Providers Location Date Indications Data Source(s ) Outpatient Attender: Romy Patten MS, Marcio t: Eber Conway 04/10/2021 11:28:00 AM EDT - 04/10/2021 12:28:00 PM EDT [facility] Patient discharged. Outpatient Attender: Eber Man [place] [facility] 04/05/2021 10:30:0 0 AM EDT [facility] ([facility] Outpatient Attender: Romy Patten MS, Marcio t: Eber Conway 04/04/2021 04:47:00 PM EDT - 04/04/2021 05:47:00 PM EDT [facility] Outpatient Attender: FIDEL CAMILO MDConsultant: Eber Conway 03/27/2021 12:00:00 PM EDT - 03/27/2021 02:18:00 PM EDT [facility] Patient discharged. Outpatient Attender: Romy Patten MS, Marcio t: Eber Conway 03/25/2021 08:57:00 AM EDT - 03/25/2021 09:57:00 AM EDT [facility] Patient discharged. Outpatient Attender: FIDEL CAMILO MDConsultant: Eber Mna 03/19/2021 02:00:00 PM EDT - 03/19/2021 02:00:00 PM EDT [facility] Outpatient Attender: Romy Patten MS, RPAMisael pascal 03/19/2021 02:00:00 PM EDT [facility] ([facility] Outpatient Attender: FIDEL CAMILO MDConsultant: Eber Man 02/20/2021 10:08:00 AM EDT - 02/20/2021 10:08:00 AM EDT [facility] Outpatient Attender: FIDEL CAMILO MD [facility] 02/13/2021 03:15:0 0 PM EDT [facility] ([facility]) Outpatient Attender: FIDEL CAMILO MDConsultant: Eber Conway 02/13/2021 02:50:00 PM EDT - 02/13/2021 02:50:00 PM EDT [facility] Outpatient Attender: FIDEL CAMILO MDConsultant: Eber Conway 01/18/2021 07:45:00 AM EDT - 01/18/2021 11:45:00 AM EDT [facility] Patient discharged. Outpatient Attender: Romy Patten MS, RPA-CConsultan t: Eber Conway 01/14/2021 11:29:00 AM EDT - 01/14/2021 12:29:00 PM EDT [facility] Patient discharged. Outpatient Attender: Eber Conway [place] [facility] 01/02/2021 01:45:0 0 PM EDT [facility] ([facility] Outpatient Attender: FIDEL CAMILO MDConsultant: Eber Conway 12/25/2020 01:43:00 PM EDT - 12/25/2020 01:43:00 PM EDT [facility] Outpatient Attender: KELLEE ORANTES [facility] 11/2020 03:30:00 PM EDT [facility] ([facility] Outpatient Attender: Eber Conway [place] [facility] 11/30/2020 01:30:0 0 PM EDT [facility] ([facility] Outpatient Attender: KELLEE ORANTES [facility] 06/2020 03:30:00 PM EDT [facility] ([facility] Outpatient Attender: FIDEL CAMILO MDConsultant: Eber Conway 10/19/2020 07:30:00 AM EDT - 10/19/2020 10:18:00 AM EDT [facility] Patient discharged. Outpatient Attender: Romy Patten MS, RPA-CConsnathan t: Eber Conway 10/15/2020 10:04:00 AM EDT - 10/15/2020 11:04:00 AM EDT [facility] Patient discharged. Outpatient Attender: Eber Man [place] [facility] 10/03/2020 02:00:0 0 PM EDT [facility] ([facility] Outpatient Attender: FIDEL CAMILO MDConsultant: Eber Conway 10/03/2020 01:37:00 PM EDT - 10/03/2020 01:37:00 PM EDT [facility] 01:20:0 0 PM EST [facility] ([facility] Outpatient Attender: FIDEL CAMILO MDConsultant: Eber Conway 07/27/2020 07:15:00 AM EST - 07/27/2020 10:10:00 AM EST [facility] Patient discharged. Outpatient Attender: Romy Patten MS, NATHEN-CConsnathan t: Eber Conway 07/23/2020 12:08:00 PM EST - 07/23/2020 01:08:00 PM EST [facility] Patient discharged. Outpatient Attender: Eber Conway [place] [facility] 07/06/2020 01:00:0 0 PM EST [facility] ([facility] Outpatient Attender: Eber [employer] [place] [facility] 07/02/2020 12:15:0 0 PM EST [facility] ([facility] Outpatient Attender: FIDEL CAMILO MDConsultant: Eber Conway 06/26/2020 01:41:00 PM EST - 06/26/2020 01:41:00 PM EST [facility] Outpatient Attender: FIDEL CAMILO MD [facility] 06/26/2020 12:30:0 0 PM EST [facility] ([facility]) Inpatient Attender: LUISITO CRAMER MDA ender: Nancy Brooks MDAttender: TIFFANY Belcher MDAdmitter: EPOALDEN Guruleigh MDReferrer: MANDYALDEN Belcher MDConsultant: Narayan Clifton JrConsultant: DEEPALI SERRANO MD [id number] 06/14/2020 12:00 :00 AM EST - 06/20/2020 06:16:00 PM EST Unspecified hydronephrosis [facility] Unspecified hydronephrosis Patient discharged. Outpatient Attender: Nancy Brooks MDReferrer: Ruchi Brooks MD 06/14/2020 12:00:00 AM [facility] Outpatient Attender: YASH FLOYD MD Referrer: YASH FLOYD MDConsultant: Eber Conway 05/30/2020 01:37:00 PM [facility] - 05/30/2020 01:47:00 PM [facility] Patient discharged. Outpatient Attender: FIDELSIMONE CAMILO MDConsultant: Eber Conway 05/23/2020 08:48:00 AM EST - 05/23/2020 08:48:[address] [facility] Outpatient Attender: FIDEL CAMILO MDConsultant: Eber Conway 05/22/2020 01:52:00 PM EST - 05/22/2020 01:52:[address] [facility] Outpatient Attender: JAYNE SOTOMAYOR DPMConsultant: Eber Browning h 05/22/2020 01:05:00 PM EST - 05/22/2020 01:05:00 PM [facility] Outpatient Attender: Marcio Angulo MS t: Eber Conway 05/21/2020 10:23:30 AM EST - 05/28/2020 10:18:00 AM [facility] Patient discharged. Outpatient Attender: Marcio Angulo MS t: Eber Conway 05/18/2020 05:40:00 PM EST - 05/18/2020 06:40:00 PM [facility] Outpatient Attender: Eber Conway [place] [facility] 05/02/2020 01:40:0 0 PM EST [facility] Outpatient Attender: FIDEL CAMILO MDConsultant: Eber Conway 04/25/2020 02:15:00 PM EST - 04/25/2020 02:15:00 PM EST [facility] Outpatient Attender: FIDEL CAMILO MDConsultant: Eber Conway 04/04/2020 08:13:00 AM EDT - 04/04/2020 09:13:00 AM EDT [facility] Patient discharged. Outpatient Attender: Eber Conway [place] [facility] 03/28/2020 02:00:0 0 PM EDT [facility] ([facility] Emergency Attender: EDGAR XAVIER MDConsultant: Eber Tierney 03/28/2020 12:54:00 PM EDT - 03/28/2020 01:57:00 PM EDT [facility] Patient discharged. Outpatient Attender: FIDEL CAMILO MD [facility] 03/27/2020 02:30:0 0 PM EDT [facility] ([facility]) Outpatient Attender: FIDEL CAMILO MDConsultant: Eber Conway 03/27/2020 02:19:00 PM EDT - 03/27/2020 02:19:00 PM EDT [facility] Outpatient Attender: Romy Perkins i, MS, RPA-CAttender: FIDEL CAMILO MDConsultant: Eber Conway 02/29/2020 11:04:00 AM EDT - 02/29/2020 11:04:00 AM EDT [facility] Outpatient Attender: Romy Perkins i, MS, RPA-CAttender: FIDEL CAMILO MDConsultant: Eber Conway 02/14/2020 01:03:00 PM EDT - 02/14/2020 01:03:00 PM EDT [facility] Outpatient Attender: FIDEL CAMILO MDConsultant: Eber Conway 10/19/2019 06:25:05 PM EDT [facility] Immunizations Vaccine Date Status Description Data Source(s) New in 2012. IIV4 03/26/2021 04:12:00 PM EDT completed [facility] ([facility] COVID-19 VACCINE Pfizer 11/30/2020 12:00:00 AM EDT completed [facility] Vaccine Series Complete: YESThis Data wa s Submitted to [facility] Via [employer]. COVID-19 VACC, MRNA(PFIZER)/PF 11/30/2020 12:00:00 AM EDT completed [facility] COVID-19 VACC, MRNA(PFIZER)/PF 11/09/2020 12:00:00 AM EDT completed [facility] COVID-19 VACCINE Pfizer 11/09/2020 12:00:00 AM EDT completed [facility] Vaccine Series Complete: NOThis Data was Submitted to [facility] Via [employer]. Medications Medication Brand Name Start Date Product Form Dose Route Admi nistrative Instructions Pharmacy Instructions Status Indications Reaction Description Data Source(s) Ondansetron 4 MG Disintegrating Oral Tablet ONDANSETRON 04/29/2021 12:00:00 AM EST tablet,disintegrating 16 DISSOLVE O NE TABLET ON TONGUE EVERY 6 TO 8 HOURS NEEDED FOR NAUSEA AND VOMITING DISSOLVE ONE TABLET ON TONGUE EVERY 6 TO 8 HOURS NEEDED FOR NAUSEA AND VOMITING SOLD: 04/29/2021 [facility] 50 mg 04/24/2021 12:00:00 AM EST tablet 90 TAKE 1 AB BY MOUTH THREE TIMES A DAY MAXIMUM DAILY DOSE = 3 TAKE 1 AB BY MOUTH THREE TIMES A DAY MAX IMUM DAILY DOSE = 3 SOLD: 04/24/2021 [facility] Atropine Sulfate 0.025 MG / [...] 12:00: 00 AM EDT ORAL active [facility] ([facility]) 50 mg 01/22/2021 12:00:00 AM EDT tablet [...] EVERY DAY BEFORE BEDTIME SOLD : 01/09/2021 [facility] Cephalexin 500 MG Oral Capsule [Keflex] Keflex 01/02/2021 12:00:0 0 AM EDT ORAL completed [facility] ([facility] Cephalexin 500 MG Oral Capsule [...] Prednisone 12/27/2020 12:00:00 AM EDT completed [facility] ([facility] 20 mg 12/27/2020 12:00:00 AM EDT tablet 7 TAKE ONE TABLET BY MOUTH EVERY DAY FOR 7 DAYS - TAKE WITH FOOD TAKE ONE TABLET BY MOUTH EVERY DAY FOR 7 DAYS - TAKE WITH FOOD SOLD: 01/02/2021 [facility] Prednisone 20 MG Oral Tablet Prednisone 12/26/2020 12:00:00 AM EDT ORAL completed [facility] ([facility] 50 mg 12/07/2020 12:00:00 AM EDT tablet 90 TAKE ONE TABLET BY MOUTH THREE TIMES A DAY MAXIMUM DAILY DOSE = 3 TAKE ONE TABLET BY MOUTH THREE TIMES A D AY MAXIMUM DAILY DOSE = 3 SOLD: 12/09/2020 [facility] Levofloxacin 250 MG Oral Tablet Levofloxacin 11/30/2020 12:00:00 AM E DT ORAL completed [facility] ([facility] 250 mg 11/30/2020 12:00:00 AM EDT tablet 7 TAKE ONE TABLET BY MOUTH EVERY DAY TAKE ONE TABLET BY MOUTH EVERY DAY SOLD: 11/30/2020 [facility] 4 mg 11/29/2020 12:00:00 AM EDT tablet 30 TAKE ONE TABLET BY MOUTH EVERY 8 HOURS NEEDED FOR NAUSEA TAKE ONE TABLET BY MOUTH EVERY 8 HOURS A S NEEDED FOR NAUSEA SOLD: 11/29/2020 [facility] Ondansetron 4 MG Oral Tablet Ondansetron HCL 11/29/2020 12:00:00 AM E DT ORAL active [facility] ([facility] pantoprazole 40 MG Delayed Release Oral Tablet PANTOPRAZOLE SODIUM 10/03/2020 12:00:00 AM EDT tablet,delayed release (DR/EC) 90 T LEEROY ONE TABLET BY MOUTH EVERY DAY TAKE ONE TABLET BY MOUTH EVERY DAY SOLD: 04/11/2021 [facility] pantoprazole 40 MG Delayed Release Oral Tablet PANTOPRAZOLE SODIUM 10/03/2020 12:00:00 AM EDT tablet,delayed release (DR/EC) 90 T LEREOY ONE TABLET BY MOUTH EVERY DAY TAKE ONE TABLET BY MOUTH EVERY DAY SOLD: 01/11/2021 [facility] pantoprazole 40 MG Delayed Release Oral Tablet [Protonix] Pr otonix 10/03/2020 12:00:00 AM EDT ORAL active M [facility] ([facility] 25 mg 10/02/2020 12:00:00 AM EDT tablet 30 TAKE ONE TABLET BY MOUTH AT BEDTIME TAKE ONE TABLET BY MOUTH AT BEDTIME SOLD: 10/03/2020 [facility] 25 mg 10/02/2020 12:00:00 AM EDT tablet 30 TAKE ONE TABLET BY MOUTH AT BEDTIME TAKE ONE TABLET BY MOUTH AT BEDTIME SOLD: 12/11/2020 [facility] 25 mg 10/02/2020 12:00:00 AM EDT tablet 30 TAKE ONE TABLET BY MOUTH AT BEDTIME TAKE ONE TABLET BY MOUTH AT BEDTIME SOLD: 10/30/2020 [facility] BLOOD SUGAR DIAGNOSTIC 09/06/2020 12:00:00 AM EDT [...] MOUTH THREE TIMES A DAY SOLD: 08/30/2020 [facility] Famotidine 40 MG Oral Tablet FAMOTIDINE 08/01/2020 12:00:00 AM EST tab let 90 TAKE ONE TABLET BY MOUTH EVERY DAY TAKE ONE TABLET BY MOUTH EVERY DAY SOLD: 08/08/2020 [facility] Famotidine 40 MG Oral Tablet [Pepcid] Pepcid 08/01/2020 12:00:00 AM EST ORAL completed [facility] ([facility] 50 mg 07/26/2020 12:00:00 AM [...] Take 1 t ablet by mouth daily [facility] Magnesium Oxide 400 MG Oral Tablet Magnesium Oxide (MA G-OX) tablet 400 mg Magnesium Oxide (MAG-OX) tablet 400 mg 06/20/2020 10:00:00 AM EST 4 00 mg Oral active 400 mg, Oral, D aily Standard, First dose on Thu06/20/20 at 1000, For 30 days [facility] Medication administered onsite POLYETHYLENE GLYCOL [id number] [...] to p otential increased risk for aspiration.
[facility] Medication administered onsite 400 mg (241.3 mg magnesium) 06/20/2020 12:00:00 AM EST table t 30 TAKE ONE TABLET BY MOUTH EVERY DAY TAKE ONE TABLET BY MOUTH EVERY DAY SOLD: 06/20/2020 [facility] heparin (porcine) 5000 UNIT/ML injection 5,000 Units 79122-5 47-10 06/19/2020 05:00:00 PM EST 5000 U Subcutaneous active 5,000 Units, Subcutaneous, Three Times Daily Standard, First dose on Thu06/19/20 at 1700, For 30 days [facility] Medication administered onsite sennosides, LONGTERM 8.6 MG Oral Tablet senna tablet 2 tablet sen na tablet 2 tablet 06/19/2020 12:30:00 PM EST 2 {tbl} Oral active 2 tablet, Oral, Nightly, First dose on Thu06/19/20 at 1230, For 30 days [facility] Medication administered onsite POLYETHYLENE GLYCOL [id number] [...] due to potential increased risk for aspiration.
[facility] Medication administered onsite NaCl infusion 0.9 % 2382-9947-86 06/18/2020 09:45:00 PM EST Intravenous aborted at 75 mL/hr, Intrave nous, Continuous, Starting Thu06/18/20 at 2145, For 30 days [facility] Medication administered onsite Sodium Bicarbonate 650 MG Oral Tablet sodium bicarbona te tablet 1,300 mg sodium bicarbonate tablet 1,300 mg 06/18/2020 09:00:00 PM EST 1300 mg Oral active 1,300 mg, Oral, 2 Ti mes Daily, First dose (after last modification) on Thu06/18/20 at 2100, For 30 days [facility] Medication administered onsite dextrose 5 % and sodium chloride 0.45 % infusion 2297-0579-0 0 06/18/2020 12:15:00 PM EST Intravenous aborted at 100 mL/hr, Intravenous, Continuous, Starting Thu06/18/20 at 1215, For 1 day [facility] Medication administered onsite Hydroxyzine Hydrochloride 25 MG Oral Tablet hydrOXYzin e (ATARAX) tablet 25 mg hydrOXYzine (ATARAX) tablet 25 mg 06/18/2020 12:15:00 PM EST 25 mg Oral completed 25 mg, Oral, Once, Thu06/18/20 at 1215, For 1 dose [facility] Medication administered onsite pantoprazole 40 MG Delayed Release Oral Tablet pantoprazole (PROTONIX) EC tablet 40 mg pantoprazole (PROTONIX) EC tablet 40 mg 06/18/2020 12:15:[address] 40 mg Oral active 40 mg, Ora l, Daily Standard, First dose on Thu06/18/20 at 1215, For 30 days
Do not crush or chew
[facility] Medication administered onsite Acetaminophen 325 MG Oral [...] mg from all sources in 24 hours.
[facility] Medication administered onsite dextrose 5 % and sodium chloride 0.45 % infusion 0847-5805-0 0 06/17/2020 11:15:00 AM EST Intravenous completed at 100 mL/hr, Intravenous, Continuous, Starting 06/17/20 at 1115, For 1 day [facility] Medication administered onsite 50 ML Magnesium Sulfate 40 MG/ML Injecti on magnesium sulfate infusion 2 g/50 mL (premix) magnesium sulfate infusion 2 g/50 mL (premix) 06/17/19 05:00:00 AM EST 2 g Intravenous completed 2 g, Intravenous, Administer over 60 Minutes, Once, [place] 06/17/20 at 0500, For 1 dose [facility] Medication administered onsite 50 ML Magnesium Sulfate 40 MG/ML Injecti on magnesium sulfate infusion 2 g/50 mL (premix) magnesium sulfate infusion 2 g/50 mL (premix) 06/17/19 01:00:00 AM EST 2 g Intravenous completed 2 g, Intravenous, Administer over 60 Minutes, Once, 06/17/20 at 0100, For 1 dose
Over 2 hours
[facility] Medication administered onsite dextrose 5 % and sodium chloride 0.45 % infusion 4418-0935-0 0 06/16/2020 03:00:00 PM EST Intravenous completed at 100 mL/hr, Intravenous, Continuous, Starting 06/16/20 at 1500, For 18 hours [facility] Medication administered onsite Sodium Bicarbonate 325 MG Oral Tablet sodium bicarbona te tablet 1,300 mg sodium bicarbonate tablet 1,300 mg 06/16/2020 09:00:00 AM EST 1300 mg Oral aborted 1,300 mg, Oral, Thre e Times Daily Standard, First dose on 06/16/20 at 0900, For 30 days [facility] Medication administered onsite dextrose 5 % and sodium chloride 0.45 % infusion 7683-3950-0 0 06/16/2020 04:00:00 AM EST Intravenous completed at 100 mL/hr, Intravenous, Continuous, Starting 06/16/20 at 0400, For 10 hours [facility] Medication administered onsite magnesium sulfate in dextrose 5 % infusion (premix) 1 g 0409 -6727-23 06/16/2020 01:15:00 AM EST 1 g Intravenous completed 1 g, Intravenous, Administer over 60 Minutes, Once, 06/16/20 at 0115, For 1 dose [facility] Medication administered onsite dextrose 5 % and sodium chloride 0.45 % infusion 6275-4978-0 0 06/15/2020 07:15:00 PM EST Intravenous completed at 100 mL/hr, Intravenous, Continuous, Starting Thu06/15/20 at 1915, For 10 hours [facility] Medication administered onsite dextrose 5 % and sodium chloride 0.45 % infusion 7324-3823-0 0 06/15/2020 02:45:00 PM EST Intravenous completed at 100 mL/hr, Intravenous, Continuous, Starting Thu06/15/20 at 1445, For 10 hours [facility] Medication administered onsite insulin lispro (HumaLOG) injection LOW DOSE EATING INS ULIN patients 1-8 Units [id number] 06/15/2020 01:00:00 PM EST U Subcutaneous active 1-8 Units, Subcutaneous, Three Times Daily-With Meals, First dose on Thu06/15/20 at 1300, For 30 days
Nursing MUST open the 'SQ Insulin Dosing Charts' Sidebar Report, or, the Patient Summary or Summary Report within the ED.
[facility] Medication administered onsite dextrose 5 % and sodium chloride 0.45 % infusion 1020-7893-0 0 06/15/2020 09:45:00 AM EST Intravenous aborted at 100 mL/hr, Intravenous, Continuous, Starting Thu06/15/20 at 0945, For 9 hours [facility] Medication administered onsite Lisinopril 2.5 MG Oral Tablet lisinopril (ZESTRIL) tab let 5 mg lisinopril (ZESTRIL) tablet 5 mg 06/15/2020 08:15:00 AM EST 5 mg Oral aborted 5 mg, Oral, Daily Standard, First dose on Thu06/15/20 at 0815, For 30 days [facility] Medication administered onsite fentaNYL (SUBLIMAZE) (PF) injection 8076-2345-05 06/14/2020 08:42:56 PM EST completed Code/Trauma Medicati on, Starting Quynh 06/14/20 at 2041 [facility] Medication administered onsite sodium bicarbonate 8.4 % 1 mL in lidocaine (XYLOCAINE) 1 % 9 mL injection 06/14/2020 08:32:12 PM EST Infiltration complete d Infiltration, Code/Trauma Medication, Starting Quynh 06/14/20 at 2031 [facility] Medication administered onsite Piperacillin 3000 MG / tazobactam 375 MG Injection piperacillin-tazobactam (ZOSYN) IVPB 3.375 g (premix) piperacillin-tazobactam (ZOSYN) IVPB 3.3 75 g (premix) 06/14/2020 08:12:13 PM EST completed Administer over 4 Hours, Code/Trauma continuous Med, Starting Quynh 06/14/20 at 2011 [facility] Medication administered onsite dextrose 50 % IV [...] 1949, Last occurrence on Quynh 06/14/20 at 211, For 4 occurrences
Does the patient have [...] hypotension requiring vasopressors: No [Order 4 End] [facility] Medication administered onsite Hydralazine Hydrochloride 20 MG/ML Injec table Solution hydrALAZINE (APRESOLINE) injection 10 mg hydrALAZINE (APRESOLINE) injection 10 mg 06/14/2020 06 :20:16 PM EST 10 mg Intravenous aborted 10 m g, Intravenous, Every 6 hours PRN, Hypertension, SBP >170, Starting Quynh 06/14/20 at 1820, For 30 days
Dilute in 25-50 ml normal saline. Administer over 30 minutes.
[facility] Medication administered onsite Glucagon 1 MG Injection glucagon (human recombinant) ( GLUCAGEN) injection 1 mg glucagon (human recombinant) (GLUCAGEN) injection 1 mg 06/14/2020 05:08:00 PM EST 1 mg Intramuscular active 1 mg, Intramuscular, PRN, for glucose <55 without IV access, Starting Quynh 06/14/20 at 1708, For 30 days [facility] Medication administered onsite Glucose 0.417 MG/MG Oral Gel glucose (GLUTOSE) 40 % or al gel 15 g glucose (GLUTOSE) 40 % oral gel 15 g 06/14/2020 05:08:00 PM EST 15 g Oral active 15 g, Oral, PRN, Low blood s ugar, for gluose 55-69 mg/dl and able to take PO, Starting Quynh 06/14/20 at 1708, For 30 days [facility] Medication administered onsite 25 mg 06/12/2020 12:00:00 [...] TABLET BY MOUTH TWICE A DAY - Najma AXIHERON DAILY DOSE = 2 SOLD: 06/20/2020 [facility] 50 mg 05/03/2020 12:00:00 AM EST tablet 60 TAKE ONE TABLET BY MOUTH TWICE A DAY, MAXIMUM DAILY DOSE = 2 TAKE ONE TABLET BY MOUTH TWICE A DAY, HUMBERTO GANDARA DAILY DOSE = 2 SOLD: 05/04/2020 [facility] [...] TABLET BY MOUTH AT BEDTIME SOLD: 04/04/2020 [facility] 25 mg 03/30/2020 12:00:00 AM EDT tablet 30 TAKE ONE TABLET BY MOUTH AT BEDTIME TAKE ONE TABLET BY MOUTH AT BEDTIME SOLD: 05/11/2020 [facility] 500 mg 03/29/2020 12:00:00 AM EDT [...] Take 500 mg by m outh daily [facility] Lisinopril 5 MG Oral Tablet Lisinopril 5 MG Oral Table t (PRINIVIL,ZESTRIL) Lisinopril 5 MG Oral Tablet (PRINIVIL,ZESTRIL) 06/02/2019 12:00:00 AM EST 5 mg Oral aborted Take 5 mg by mouth daily [facility] Insurance Providers Payer name Policy type / Coverage type Policy ID Covered constitution party ID Covered constitution party's relationship to [place] Policy [place] Plan Information MEDICARE A [id number] Self [id number] Medicare Medicare Primary [id number] Self MEDICARE [id number] SP [id number] V22 MEDICARE [id number] SP [id number] A Medicare Medicare Primary [id number] Self [id number] A Medicare Medicare Primary [id number] Self [id number] Medicare Medicare Primary [id number] Self [id number] Medicare Medicare Primary [id number] Self [id number] [employer] Med[employer] Part B [id number] Self [id number] [employer] Med[employer] Part B [id number] Self [id number] [employer] Med[employer] Part B [id number] Self [id number] [employer] Med[employer] Part B [id number] Self [id number] [employer] Med[employer] Part B [id number] Self AARP U [id number] Self [id number] AARP U [id number] Self [id number] [employer] OPTIONS [id number] MEDICARE PART A -O/P [id number] 18 [id number] [employer] HE[employer] CARE OPTIONS -O/P [id number] 18 [id number] [employer] OPTIONS [id number] 18 [id number] MEDICARE PART A [facility] [id number] 18 [id number] AARP O [id number] S [id number] MEDICARE C [id number] S [id number] V22 [employer] HE[employer]CARE OPTION [id number] 18 [id number] MEDICARE PART A -O/P [id number] 18 [id number] [facility] Part B [id number] Self [id number] [facility] Part B [id number] Self [id number] [facility] C[facility] OPTIONS-CLINIC [id number] MEDICARE PART A-CLINIC [id number] 18 [id number] MEDICARE -O/P [id number] 18 [id number] [facility] CARE OPTIONS [id number] SP [id number] Problems, Conditions, and Diagnoses Code Display Name Description Problem Type Effective Dates Data Source(s) C679 Malignant neoplasm of bladder, unspecifi ed Malignant neoplasm of bladder, unspecified Diagnosis [facility] Constipation, unspecified Constipation, unspecified Di agnosis 04/10/2021 11:28:00 AM [facility] R9341 Abnormal radiologic findings on diagnostic imaging of renal pelvis, ureter, or bladder Abnormal radiologic findings on diagnost ic imaging of renal pelvis, ureter, or bladder Diagnosis 04/10/2021 11:28:00 AM [facility] K769 Liver disease, unspecified Liver disease, unspecified Diagnosis 04/10/2021 11:28:00 AM [facility] N1330 Unspecified hydronephrosis Unspecified hydronephrosis Diagnosis 03/27/2021 12:00:00 PM [facility] Z1152 ENCOUNTER FOR SCREENING FOR COVID-19 ENCOUNTER F OR SCREENING FOR COVID-19 Diagnosis 03/25/2021 08:57:00 AM [facility] [id number] Encounter for preprocedural laboratory e xamination Encounter for preprocedural laboratory examination Diagnosis 03/25/2021 08:57:00 AM [facility] R310 Gross hematuria Gross hematuria Diagnosis 02/13/2021 02:5 0:00 PM [facility] N453 Epididymo-orchitis Epididymo-orchitis Diagnosis [facility] Family history of malignant neoplasm of digestive organs Family history of malignant neoplasm of digestive organs Diagnosis 01/18/2021 07:45:00 A M [facility] I10 Essential (primary) hypertension Essential (primary) h ypertension Diagnosis 01/18/2021 07:45:00 AM [facility] E119 Type 2 diabetes mellitus without complic ations Type 2 diabetes mellitus without complications Diagnosis 01/18/2021 07:45:00 AM EDT [facility] Z466 Encounter for fitting and adjustment of urinary device Encounter for fitting and adjustment of urinary device Diagnosis 01/18/2021 07:45:00 AM [facility] C61 Malignant neoplasm of prostate Malignant neoplasm of p rostate Diagnosis 01/18/2021 07:45:00 AM [facility] N130 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 with ureteropelvic junction obstruction Diagnosis 01/18/2021 07:45:00 AM ED [facility] Z7984 nursing home (current) use of 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 emic drugs nursing home (current) use of 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emic drugs Diagnosis 10/19/2020 07:30:00 AM [facility] H21362 nursing home (current) use of opiate analge sic nursing home (current) use of opiate analgesic Diagnosis 10/19/2020 07:30:00 AM [facility] N3281 Overactive bladder Overactive bladder Diagnosis 12/2020 07:30:00 AM [facility] Z923 Personal history of irradiation Personal history of ir radiation Diagnosis 07/27/2020 07:15:00 AM [facility] 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 Diagnosis 07/27/2020 07:15:00 AM [facility] Z8546 Personal history of malignant neoplasm o f prostate Personal history of malignant neoplasm of prostate Diagnosis 07/27/2020 07:15:00 AM [facility] N401 Benign prostatic hyperplasia with lower urinary tract symptoms Benign prostatic hyperplasia with lower urinary tract symptoms Diagnosis 07/27/2020 07:15:00 AM [facility] R32 Unspecified urinary incontinence Unspecified urinary i ncontinence Diagnosis 07/27/2020 07:15:00 AM [facility] N13.30 Unspecified hydronephrosis Unspecified hydronephrosis Diagnosis 06/20/2020 06:38:38 PM [facility] severe bilateral hydroureter nephrosis, ARF severe bilateral hydroureter nephrosis, ARF Diagnosis 06/14/2020 03:49:00 PM [facility] R99 Ill-defined and unknown cause of mortali ty Ill-defined and unknown cause of mortality Diagnosis 05/28/2020 10:18:00 AM [facility] L84 Corns and callosities Corns and callosities Diagnosis 05/22/2020 01:05:00 PM [facility] J449 Chronic obstructive pulmonary disease, u nspecified Chronic obstructive pulmonary disease, unspecified Diagnosis 04/04/2020 08:13:00 AM EDT [facility] K449 Diaphragmatic hernia without obstruction or gangrene Diaphragmatic hernia without obstruction or gangrene Diagnosis 04/04/2020 08:13:00 AM EDT [facility] Y828 Other medical devices associated with ad verse incidents Other medical devices associated with adverse incidents Diagnosis 03/28/2020 12:54:0 0 PM EDT [facility] N3000 Acute cystitis without hematuria Acute cystitis without hematuria Diagnosis 03/28/2020 12:54:00 PM EDT [facility] [id number] Other mechanical complicatio n of other urinary catheter, initial encounter Other mechanical complication of other u rinary catheter, initial encounter Diagnosis 03/28/2020 12:54:00 PM EDT [facility] N13.30 Hydronephrosis Hydronephrosis Problem 02/20/2021 12:00: 00 AM EDT [facility] ([facility]) L84 Callosity Callosity Problem 11/19/2020 12:00:00 AM ED T [facility] M79.671 Pain in limb Pain in limb Problem 11/19/2020 12:00:00 A M EDT [facility] S90.851A Superficial foreign body in foot Superficial for eign body in foot Problem 11/19/2020 12:00:00 AM EDT [facility] ([facility] N13.0 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 with ureteropelvic junction obstruction Problem 10/03/2020 12:00:00 AM ED T [facility] ([facility]) [id number] Type 2 diabetes mellitus Type 2 diabetes mellitus Prob charles 05/02/2020 12:00:00 AM EST - 08/01/2020 12:00:00 AM EST [facility] ([facility] 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 Malignant ted or of urinary bladder Problem 03/27/2020 12:00:00 AM EDT [facility] ([facility]) Surgeries/Procedures Procedure Description Date Indications Data Source(s) OFFICE OUTPATIENT VISIT 25 MINUTES 04/05/2021 12:00:00 AM EDT [facility] ([facility] OFFICE OUTPATIENT VISIT 15 MINUTES 03/19/2021 12:00:00 AM EDT [facility] ([facility]) OFFICE OUTPATIENT VISIT 15 MINUTES 02/20/2021 12:00:00 AM EDT [facility] ([facility]) OFFICE OUTPATIENT VISIT 25 MINUTES 02/13/2021 12:00:00 AM EDT [facility] ([facility]) OFFICE OUTPATIENT VISIT 10 MINUTES 02/13/2021 12:00:00 AM EDT [facility] ([facility]) OFFICE OUTPATIENT VISIT 25 MINUTES 01/02/2021 12:00:00 AM EDT [facility] ([facility] OFFICE OUTPATIENT VISIT 25 MINUTES 12/25/2020 12:00:00 AM EDT [facility] ([facility]) OFFICE OUTPATIENT VISIT 10 MINUTES 12/18/2020 12:00:00 AM EDT [facility] OFFICE OUTPATIENT VISIT 25 MINUTES 11/30/2020 12:00:00 AM EDT [facility] ([facility] OFFICE OUTPATIENT NEW 30 MINUTES 11/13/2020 12:00:00 A M EDT [facility] ([facility] OFFICE OUTPATIENT VISIT 25 MINUTES 10/03/2020 12:00:00 AM EDT [facility] ([facility]) OFFICE OUTPATIENT VISIT 25 MINUTES 10/03/2020 12:00:00 [...] 4:17 PM EST</td><td></td><td> </td> 06/20/2020 04:17:00 PM [facility] POCT GLUCOSE, DOCKED <td>POCT GLUCOSE, DOCKED</td ><td>Routine</td><td>06/20/2020 11:42 AM EST</td><td></td><td> </td> 06/20/2020 11:42:00 AM [facility] POCT GLUCOSE, DOCKED <td>POCT GLUCOSE, DOCKED</td ><td>Routine</td><td>06/20/2020 7:36 AM EST</td><td></td><td> </td> 06/20/2020 07:36:00 AM [facility] BLOOD COUNT COMPLETE AUTOMATED <td>CBC</td><td>Routine </td><td>06/20/2020 3:35 AM EST</td><td></td><td> </td> 06/20/2020 03:35:00 AM [facility] PHOSPHORUS INORGANIC <td>PHOSPHORUS LEVEL</td><td >Timed</td><td>06/20/2020 3:35 AM EST</td><td></td><td> </td> 06/20/2020 03:35:00 AM [facility] MAGNESIUM <td>MAGNESIUM LEVEL</td><td> Timed</td><td>06/20/2020 3:35 AM EST</td><td></td><td> </td> 06/20/2020 03:35:00 AM [facility] BASIC METABOLIC PANEL CALCIUM TOTAL <td>BASIC METABOLI C PANEL</td><td>Timed</td><td>06/20/2020 3:35 AM EST</td><td></td><td> </td> 06/20/2020 03:35:00 AM [facility] GLUCOSE QUANTITATIVE BLOOD XCPT REAGENT STRIP <td>POCT GLUCOSE, DOCKED</td><td>Routine</td><td>06/19/2020 9:40 PM EST</td><td></td><td> </td> 06/19/2020 09:40:00 PM [facility] BLOOD COUNT COMPLETE AUTO&AUTO DIFRNTL WBC COUNT <td>C BC AND DIFFERENTIAL</td><td>Routine</td><td>06/19/2020 8:40 PM EST</td><td></td><td> </td> 06/19/2020 08:40:00 PM [facility] PHOSPHORUS INORGANIC <td>PHOSPHORUS LEVEL</td><td >Timed</td><td>06/19/2020 5:34 PM EST</td><td></td><td> </td> 06/19/2020 05:34:00 PM [facility] MAGNESIUM <td>MAGNESIUM LEVEL</td><td> Timed</td><td>06/19/2020 5:34 PM EST</td><td></td><td> </td> 06/19/2020 05:34:00 PM [facility] BASIC METABOLIC PANEL CALCIUM TOTAL <td>BASIC METABOLI C PANEL</td><td>Timed</td><td>06/19/2020 5:34 PM EST</td><td></td><td> </td> 06/19/2020 05:34:00 PM [facility] GLUCOSE QUANTITATIVE BLOOD XCPT REAGENT STRIP <td>POCT GLUCOSE, DOCKED</td><td>Routine</td><td>06/19/2020 4:54 PM EST</td><td></td><td> </td> 06/19/2020 04:54:00 PM [facility] GLUCOSE QUANTITATIVE BLOOD XCPT REAGENT STRIP <td>POCT GLUCOSE, DOCKED</td><td>Routine</td><td>06/19/2020 11:28 AM EST</td><td></td><td> </td> 06/19/2020 11:28:00 AM [facility] CALCIUM IONIZED <td>CALCIUM, IONIZED</td><td >Routine</td><td>06/19/2020 7:58 AM EST</td><td></td><td> </td> 06/19/2020 07:58:00 AM [facility] GLUCOSE QUANTITATIVE BLOOD XCPT REAGENT STRIP <td>POCT GLUCOSE, DOCKED</td><td>Routine</td><td>06/19/2020 7:32 AM EST</td><td></td><td> </td> 06/19/2020 07:32:00 AM [facility] BLOOD COUNT COMPLETE AUTO&AUTO DIFRNTL WBC COUNT <td>C BC AND DIFFERENTIAL</td><td>Routine</td><td>06/19/2020 4:04 AM EST</td><td></td><td> </td> 06/19/2020 04:04:00 AM [facility] PHOSPHORUS INORGANIC <td>PHOSPHORUS LEVEL</td><td >Timed</td><td>06/19/2020 4:04 AM EST</td><td></td><td> </td> 06/19/2020 04:04:00 AM [facility] MAGNESIUM <td>MAGNESIUM LEVEL</td><td> Timed</td><td>06/19/2020 4:04 AM EST</td><td></td><td> </td> 06/19/2020 04:04:00 AM [facility] BASIC METABOLIC PANEL CALCIUM TOTAL <td>BASIC METABOLI C PANEL</td><td>Timed</td><td>06/19/2020 4:04 AM EST</td><td></td><td> </td> 06/19/2020 04:04:00 AM [facility] GLUCOSE QUANTITATIVE BLOOD XCPT REAGENT STRIP <td>POCT GLUCOSE, DOCKED</td><td>Routine</td><td>06/18/2020 9:30 PM EST</td><td></td><td> </td> 06/18/2020 09:30:00 PM [facility] GLUCOSE QUANTITATIVE BLOOD XCPT REAGENT STRIP <td>POCT GLUCOSE, DOCKED</td><td>Routine</td><td>06/18/2020 8:06 PM EST</td><td></td><td> </td> 06/18/2020 08:06:00 PM [facility] PHOSPHORUS INORGANIC <td>PHOSPHORUS LEVEL</td><td >Timed</td><td>06/18/2020 5:38 PM EST</td><td></td><td> </td> 06/18/2020 05:38:00 PM [facility] MAGNESIUM <td>MAGNESIUM LEVEL</td><td> Timed</td><td>06/18/2020 5:38 PM EST</td><td></td><td> </td> 06/18/2020 05:38:00 PM [facility] BASIC METABOLIC PANEL CALCIUM TOTAL <td>BASIC METABOLI C PANEL</td><td>Timed</td><td>06/18/2020 5:38 PM EST</td><td></td><td> </td> 06/18/2020 05:38:00 PM [facility] GLUCOSE QUANTITATIVE BLOOD XCPT REAGENT STRIP <td>POCT GLUCOSE, DOCKED</td><td>Routine</td><td>06/18/2020 4:33 PM EST</td><td></td><td> </td> 06/18/2020 04:33:00 PM [facility] GLUCOSE QUANTITATIVE BLOOD XCPT REAGENT STRIP <td>POCT GLUCOSE, DOCKED</td><td>Routine</td><td>06/18/2020 11:56 AM EST</td><td></td><td> </td> 06/18/2020 11:56:00 AM [facility] PHOSPHORUS INORGANIC <td>PHOSPHORUS LEVEL</td><td >Timed</td><td>06/18/2020 8:35 AM EST</td><td></td><td> </td> 06/18/2020 08:35:00 AM [facility] MAGNESIUM <td>MAGNESIUM LEVEL</td><td> Timed</td><td>06/18/2020 8:35 AM EST</td><td></td><td> </td> 06/18/2020 08:35:00 AM [facility] BASIC METABOLIC PANEL CALCIUM TOTAL <td>BASIC METABOLI C PANEL</td><td>Timed</td><td>06/18/2020 8:35 AM EST</td><td></td><td> </td> 06/18/2020 08:35:00 AM [facility] GLUCOSE QUANTITATIVE BLOOD XCPT REAGENT STRIP <td>POCT GLUCOSE, DOCKED</td><td>Routine</td><td>06/18/2020 7:44 AM EST</td><td></td><td> </td> 06/18/2020 07:44:00 AM [facility] US RETROPERITONEAL REAL TIME W/IMAGE COMPLETE <td>US R ENAL OR AORTA COMPLETE [id number]</td><td>Routine</td><td>06/18/2020 4:30 AM EST</td><td></td><td> </td> 06/18/2020 04:30:24 AM [facility] BLOOD COUNT COMPLETE AUTO&AUTO DIFRNTL WBC COUNT <td>C BC AND DIFFERENTIAL</td><td>Routine</td><td>06/18/2020 12:09 AM EST</td><td></td><td> </td> 06/18/2020 12:09:00 AM [facility] PHOSPHORUS INORGANIC <td>PHOSPHORUS LEVEL</td><td >Timed</td><td>06/18/2020 12:09 AM EST</td><td></td><td> </td> 06/18/2020 12:09:00 AM [facility] MAGNESIUM <td>MAGNESIUM LEVEL</td><td> Timed</td><td>06/18/2020 12:09 AM EST</td><td></td><td> </td> 06/18/2020 12:09:00 AM [facility] BASIC METABOLIC PANEL CALCIUM TOTAL <td>BASIC METABOLI C PANEL</td><td>Timed</td><td>06/18/2020 12:09 AM EST</td><td></td><td> </td> 06/18/2020 12:09:00 AM [facility] GLUCOSE QUANTITATIVE BLOOD XCPT REAGENT STRIP <td>POCT GLUCOSE, DOCKED</td><td>Routine</td><td>06/17/2020 9:11 PM EST</td><td></td><td> </td> 06/17/2020 09:11:00 PM [facility] PHOSPHORUS INORGANIC <td>PHOSPHORUS LEVEL</td><td >Timed</td><td>06/17/2020 4:37 PM EST</td><td></td><td> </td> 06/17/2020 04:37:00 PM [facility] MAGNESIUM <td>MAGNESIUM LEVEL</td><td> Timed</td><td>06/17/2020 4:37 PM EST</td><td></td><td> </td> 06/17/2020 04:37:00 PM [facility] BASIC METABOLIC PANEL CALCIUM TOTAL <td>BASIC METABOLI C PANEL</td><td>Timed</td><td>06/17/2020 4:37 PM EST</td><td></td><td> </td> 06/17/2020 04:37:00 PM [facility] GLUCOSE QUANTITATIVE BLOOD XCPT REAGENT STRIP <td>POCT GLUCOSE, DOCKED</td><td>Routine</td><td>06/17/2020 4:35 PM EST</td><td></td><td> </td> 06/17/2020 04:35:00 PM [facility] GLUCOSE QUANTITATIVE BLOOD XCPT REAGENT STRIP <td>POCT GLUCOSE, DOCKED</td><td>Routine</td><td>06/17/2020 11:40 AM EST</td><td></td><td> </td> 06/17/2020 11:40:00 AM [facility] GLUCOSE QUANTITATIVE BLOOD XCPT REAGENT STRIP <td>POCT GLUCOSE, DOCKED</td><td>Routine</td><td>06/17/2020 7:39 AM EST</td><td></td><td> </td> 06/17/2020 07:39:00 AM [facility] PHOSPHORUS INORGANIC <td>PHOSPHORUS LEVEL</td><td >Timed</td><td>06/17/2020 6:22 AM EST</td><td></td><td> </td> 06/17/2020 06:22:00 AM [facility] MAGNESIUM <td>MAGNESIUM LEVEL</td><td> Timed</td><td>06/17/2020 6:22 AM EST</td><td></td><td> </td> 06/17/2020 06:22:00 AM [facility] BASIC METABOLIC PANEL CALCIUM TOTAL <td>BASIC METABOLI C PANEL</td><td>Timed</td><td>06/17/2020 6:22 AM EST</td><td></td><td> </td> 06/17/2020 06:22:00 AM [facility] BLOOD COUNT COMPLETE AUTO&AUTO DIFRNTL WBC COUNT <td>C BC AND DIFFERENTIAL</td><td>Routine</td><td>06/17/2020 12:03 AM EST</td><td></td><td> </td> 06/17/2020 12:03:00 AM [facility] PHOSPHORUS INORGANIC <td>PHOSPHORUS LEVEL</td><td >Timed</td><td>06/17/2020 12:03 AM EST</td><td></td><td> </td> 06/17/2020 12:03:00 AM [facility] MAGNESIUM <td>MAGNESIUM LEVEL</td><td> Timed</td><td>06/17/2020 12:03 AM EST</td><td></td><td> </td> 06/17/2020 12:03:00 AM [facility] BASIC METABOLIC PANEL CALCIUM TOTAL <td>BASIC METABOLI C PANEL</td><td>Timed</td><td>06/17/2020 12:03 AM EST</td><td></td><td> </td> 06/17/2020 12:03:00 AM [facility] GLUCOSE QUANTITATIVE BLOOD XCPT REAGENT STRIP <td>POCT GLUCOSE, DOCKED</td><td>Routine</td><td>06/16/2020 9:09 PM EST</td><td></td><td> </td> 06/16/2020 09:09:00 PM [facility] PHOSPHORUS INORGANIC <td>PHOSPHORUS LEVEL</td><td >Timed</td><td>06/16/2020 6:25 PM EST</td><td></td><td> </td> 06/16/2020 06:25:00 PM [facility] MAGNESIUM <td>MAGNESIUM LEVEL</td><td> Timed</td><td>06/16/2020 6:25 PM EST</td><td></td><td> </td> 06/16/2020 06:25:00 PM [facility] BASIC METABOLIC PANEL CALCIUM TOTAL <td>BASIC METABOLI C PANEL</td><td>Timed</td><td>06/16/2020 6:25 PM EST</td><td></td><td> </td> 06/16/2020 06:25:00 PM [facility] GLUCOSE QUANTITATIVE BLOOD XCPT REAGENT STRIP <td>POCT GLUCOSE, DOCKED</td><td>Routine</td><td>06/16/2020 4:35 PM EST</td><td></td><td> </td> 06/16/2020 04:35:00 PM [facility] GLUCOSE QUANTITATIVE BLOOD XCPT REAGENT STRIP <td>POCT GLUCOSE, DOCKED</td><td>Routine</td><td>06/16/2020 12:51 PM EST</td><td></td><td> </td> 06/16/2020 12:51:00 PM [facility] PHOSPHORUS INORGANIC <td>PHOSPHORUS LEVEL</td><td >Timed</td><td>06/16/2020 12:01 PM EST</td><td></td><td> </td> 06/16/2020 12:01:00 PM [facility] MAGNESIUM <td>MAGNESIUM LEVEL</td><td> Timed</td><td>06/16/2020 12:01 PM EST</td><td></td><td> </td> 06/16/2020 12:01:00 PM [facility] BASIC METABOLIC PANEL CALCIUM TOTAL <td>BASIC METABOLI C PANEL</td><td>Timed</td><td>06/16/2020 12:01 PM EST</td><td></td><td> </td> 06/16/2020 12:01:00 PM [facility] ECHO TTHRC R-T 2D W/WOM-MODE COMPL SPEC&COLR DOP <td>E CHOCARDIOGRAM 2D COMPLETE</td><td>STAT</td><td>06/16/2020 8:43 AM EST</td><td></td><td> </td> 06/16/2020 08:43:07 AM [facility] GLUCOSE QUANTITATIVE BLOOD XCPT REAGENT STRIP <td>POCT GLUCOSE, DOCKED</td><td>Routine</td><td>06/16/2020 7:32 AM EST</td><td></td><td> </td> 06/16/2020 07:32:00 AM [facility] BLOOD COUNT COMPLETE AUTO&AUTO DIFRNTL WBC COUNT <td>C BC AND DIFFERENTIAL</td><td>Routine</td><td>06/16/2020 5:59 AM EST</td><td></td><td> </td> 06/16/2020 05:59:00 AM [facility] PHOSPHORUS INORGANIC <td>PHOSPHORUS LEVEL</td><td >Timed</td><td>06/16/2020 5:59 AM EST</td><td></td><td> </td> 06/16/2020 05:59:00 AM [facility] MAGNESIUM <td>MAGNESIUM LEVEL</td><td> Timed</td><td>06/16/2020 5:59 AM EST</td><td></td><td> </td> 06/16/2020 05:59:00 AM [facility] BASIC METABOLIC PANEL CALCIUM TOTAL <td>BASIC METABOLI C PANEL</td><td>Timed</td><td>06/16/2020 5:59 AM EST</td><td></td><td> </td> 06/16/2020 05:59:00 AM [facility] PHOSPHORUS INORGANIC <td>PHOSPHORUS LEVEL</td><td >Timed</td><td>06/16/2020 12:17 AM EST</td><td></td><td> </td> 06/16/2020 12:17:00 AM [facility] MAGNESIUM <td>MAGNESIUM LEVEL</td><td> Timed</td><td>06/16/2020 12:17 AM EST</td><td></td><td> </td> 06/16/2020 12:17:00 AM [facility] BASIC METABOLIC PANEL CALCIUM TOTAL <td>BASIC METABOLI C PANEL</td><td>Timed</td><td>06/16/2020 12:17 AM EST</td><td></td><td> </td> 06/16/2020 12:17:00 AM [facility] GLUCOSE QUANTITATIVE BLOOD XCPT REAGENT STRIP <td>POCT GLUCOSE, DOCKED</td><td>Routine</td><td>06/15/2020 8:57 PM EST</td><td></td><td> </td> 06/15/2020 08:57:00 PM [facility] PHOSPHORUS INORGANIC <td>PHOSPHORUS LEVEL</td><td >Timed</td><td>06/15/2020 5:27 PM EST</td><td></td><td> </td> 06/15/2020 05:27:00 PM [facility] MAGNESIUM <td>MAGNESIUM LEVEL</td><td> Timed</td><td>06/15/2020 5:27 PM EST</td><td></td><td> </td> 06/15/2020 05:27:00 PM [facility] BASIC METABOLIC PANEL CALCIUM TOTAL <td>BASIC METABOLI C PANEL</td><td>Timed</td><td>06/15/2020 5:27 PM EST</td><td></td><td> </td> 06/15/2020 05:27:00 PM [facility] GLUCOSE QUANTITATIVE BLOOD XCPT REAGENT STRIP <td>POCT GLUCOSE, DOCKED</td><td>Routine</td><td>06/15/2020 4:37 PM EST</td><td></td><td> </td> 06/15/2020 04:37:00 PM [facility] GLUCOSE QUANTITATIVE BLOOD XCPT REAGENT STRIP <td>POCT GLUCOSE, DOCKED</td><td>Routine</td><td>06/15/2020 2:21 PM EST</td><td></td><td> </td> 06/15/2020 02:21:00 PM [facility] GLUCOSE QUANTITATIVE BLOOD XCPT REAGENT STRIP <td>POCT GLUCOSE, DOCKED</td><td>Routine</td><td>06/15/2020 11:41 AM EST</td><td></td><td> </td> 06/15/2020 11:41:00 AM [facility] PHOSPHORUS INORGANIC <td>PHOSPHORUS LEVEL</td><td >STAT</td><td>06/15/2020 11:29 AM EST</td><td></td><td> </td> 06/15/2020 11:29:00 AM [facility] MAGNESIUM <td>MAGNESIUM LEVEL</td><td> STAT</td><td>06/15/2020 11:29 AM EST</td><td></td><td> </td> 06/15/2020 11:29:00 AM [facility] BASIC METABOLIC PANEL CALCIUM TOTAL <td>BASIC METABOLI C PANEL</td><td>STAT</td><td>06/15/2020 11:29 AM EST</td><td></td><td> </td> 06/15/2020 11:29:00 AM [facility] GLUCOSE QUANTITATIVE BLOOD XCPT REAGENT STRIP <td>POCT GLUCOSE, DOCKED</td><td>Routine</td><td>06/15/2020 7:50 AM EST</td><td></td><td> </td> 06/15/2020 07:50:00 AM [facility] GLUCOSE QUANTITATIVE BLOOD XCPT REAGENT STRIP <td>POCT GLUCOSE, DOCKED</td><td>Routine</td><td>06/15/2020 4:13 AM EST</td><td></td><td> </td> 06/15/2020 04:13:00 AM [facility] CULTURE BCT ISOL&PRSMPTV ID ISOLATE EA URINE <td>URINE SUPRAPUBIC CUL</td><td>Routine</td><td>06/15/2020 3:20 AM EST</td><td></td><td> </td> 06/15/2020 03:20:00 AM [facility] CULTURE BCT ISOL&PRSMPTV ID ISOLATE EA URINE <td>URINE SUPRAPUBIC CUL</td><td>Routine</td><td>06/15/2020 3:20 AM EST</td><td></td><td> </td> 06/15/2020 03:20:00 AM [facility] URNLS DIP STICK/TABLET REAGENT AUTO MICROSCOPY <td>URI NALYSIS WITH MICROSCOPIC</td><td>Routine</td><td>06/15/2020 3:20 AM EST</td><td></td><td> </td> 06/15/2020 03:20:00 AM [facility] URNLS DIP STICK/TABLET REAGENT AUTO MICROSCOPY <td>URI NALYSIS WITH MICROSCOPIC</td><td>Routine</td><td>06/15/2020 3:20 AM EST</td><td></td><td> </td> 06/15/2020 03:20:00 AM [facility] FIBRIN DGRADJ PRODUCTS D-DIMER QUAL/SEMIQUAN <td>D-DIM ER, QUANTITATIVE</td><td>Routine</td><td>06/15/2020 3:20 AM EST</td><td></td><td> </td> 06/15/2020 03:20:00 AM [facility] BLOOD COUNT COMPLETE AUTO&AUTO DIFRNTL WBC COUNT <td>C BC AND DIFFERENTIAL</td><td>Routine</td><td>06/15/2020 3:20 AM EST</td><td></td><td> </td> 06/15/2020 03:20:00 AM [facility] TROPONIN QUANTITATIVE <td>TROPONIN T</td><td>Timed </td><td>06/15/2020 3:20 AM EST</td><td></td><td> </td> 06/15/2020 03:20:00 AM [facility] PHOSPHORUS INORGANIC <td>PHOSPHORUS LEVEL</td><td >Routine</td><td>06/15/2020 3:20 AM EST</td><td></td><td> </td> 06/15/2020 03:20:00 AM [facility] MAGNESIUM <td>MAGNESIUM LEVEL</td><td> Routine</td><td>06/15/2020 3:20 AM EST</td><td></td><td> </td> 06/15/2020 03:20:00 AM [facility] BASIC METABOLIC PANEL CALCIUM TOTAL <td>BASIC METABOLI C PANEL</td><td>Timed</td><td>06/15/2020 3:20 AM EST</td><td></td><td> </td> 06/15/2020 03:20:00 AM [facility] GLUCOSE QUANTITATIVE BLOOD XCPT REAGENT STRIP <td>POCT GLUCOSE, DOCKED</td><td>Routine</td><td>06/15/2020 1:32 AM EST</td><td></td><td> </td> 06/15/2020 01:32:00 AM [facility] GLUCOSE QUANTITATIVE BLOOD XCPT REAGENT STRIP <td>POCT GLUCOSE, DOCKED</td><td>Routine</td><td>06/15/2020 1:03 AM EST</td><td></td><td> </td> 06/15/2020 01:03:00 AM [facility] GLUCOSE QUANTITATIVE BLOOD XCPT REAGENT STRIP <td>POCT GLUCOSE, DOCKED</td><td>Routine</td><td>06/15/2020 12:30 AM EST</td><td></td><td> </td> 06/15/2020 12:30:00 AM [facility] GLUCOSE QUANTITATIVE BLOOD XCPT REAGENT STRIP <td>POCT GLUCOSE, DOCKED</td><td>Routine</td><td>06/15/2020 12:02 AM EST</td><td></td><td> </td> 06/15/2020 12:02:00 AM [facility] TROPONIN QUANTITATIVE <td>TROPONIN T</td><td>Timed </td><td>06/14/2020 11:48 PM EST</td><td></td><td> </td> 06/14/2020 11:48:00 PM [facility] BASIC METABOLIC PANEL CALCIUM TOTAL <td>BASIC METABOLI C PANEL</td><td>Timed</td><td>06/14/2020 11:48 PM EST</td><td></td><td> </td> 06/14/2020 11:48:00 PM [facility] GLUCOSE QUANTITATIVE BLOOD XCPT REAGENT STRIP <td>POCT GLUCOSE, DOCKED</td><td>Routine</td><td>06/14/2020 11:25 PM EST</td><td></td><td> </td> 06/14/2020 11:25:00 PM [facility] GLUCOSE QUANTITATIVE BLOOD XCPT REAGENT STRIP <td>POCT GLUCOSE, DOCKED</td><td>Routine</td><td>06/14/2020 9:59 PM EST</td><td></td><td> </td> 06/14/2020 09:59:00 PM [facility] IR NEPHROSTOMY INSERTION CHANGE <td>IR NEPHROSTOMY INS ERTION CHANGE</td><td>STAT</td><td>06/14/2020 9:01 PM EST</td><td></td><td> </td> 06/14/2020 09:01:51 PM [facility] GLUCOSE QUANTITATIVE BLOOD XCPT REAGENT STRIP <td>POCT GLUCOSE, DOCKED</td><td>Routine</td><td>06/14/2020 5:44 PM EST</td><td></td><td> </td> 06/14/2020 05:44:00 PM [facility] THROMBOPLASTIN TIME PARTIAL PLASMA/WHOLE BLOOD <td>PAR TIAL THROMBOPLASTIN TIME (PTT)</td><td>Routine</td><td>06/14/2020 5:28 PM EST</td><td></td><td> </td> 06/14/2020 05:28:00 PM [facility] PROTHROMBIN TIME <td>PROTIME INR</td><td>Rout ine</td><td>06/14/2020 5:28 PM EST</td><td></td><td> </td> 06/14/2020 05:28:00 PM [facility] BLOOD COUNT COMPLETE AUTO&AUTO DIFRNTL WBC COUNT <td>C BC AND DIFFERENTIAL</td><td>Routine</td><td>06/14/2020 5:28 PM EST</td><td></td><td> </td> 06/14/2020 05:28:00 PM [facility] TROPONIN QUANTITATIVE <td>TROPONIN T</td><td>STAT< /td><td>06/14/2020 5:28 PM EST</td><td></td><td> </td> 06/14/2020 05:28:00 PM [facility] PHOSPHORUS INORGANIC <td>PHOSPHORUS LEVEL</td><td >Routine</td><td>06/14/2020 5:28 PM EST</td><td></td><td> </td> 06/14/2020 05:28:00 PM [facility] MAGNESIUM <td>MAGNESIUM LEVEL</td><td> Routine</td><td>06/14/2020 5:28 PM EST</td><td></td><td> </td> 06/14/2020 05:28:00 PM [facility] COMPREHENSIVE METABOLIC PANEL <td>COMPREHENSIVE METABO LIC PANEL</td><td>STAT</td><td>06/14/2020 5:28 PM EST</td><td></td><td> </td> 06/14/2020 05:28:00 PM [facility] COVID-19 PCR <td>COVID-19 PCR</td><td>Rou phylicia</td><td>06/14/2020 4:32 PM EST</td><td></td><td> </td> 06/14/2020 04:32:00 PM [facility] GLUCOSE QUANTITATIVE BLOOD XCPT REAGENT STRIP <td>POCT GLUCOSE, DOCKED</td><td>Routine</td><td>06/14/2020 3:55 PM EST</td><td></td><td> </td> 06/14/2020 03:55:00 PM [facility] Insert Of Temporary Indwelling Bladder Catheter,Simple 04/25/2020 12:00:00 AM EST [facility] ([facility]) Results ID Date Data Source [id number] 04/10/2021 02:26:00 PM EDT [facility] [address] [place] [address] PHONE: [phone] FAX: [phone] Name .................. : CALLIE Young Acct Number.................. : [id number] ROOM. ................. : Number ................... : [id number] Stay type ............. : O/P Discharge Date......... ... : 04/10/21 Admit Date ....... .. : 04/10/21 Admit Phys .................... : JANNY Date of ....... : 1935 Family Phys ................... : MAN SUAREZ Phone .................. : [phone] Age ................................ : 85 Film# .................. .:[id number] Sex ................................. : M Unsigned transcriptions are preliminary reports and do not represent a medical or legal document CT ABD & PELV W/O ORAL W/[place] [id number] COMPLETE:04/10/21 11:49 KATIA [id number] Reason for Exam: H/O BLADDER CA , [...] stones or hydronephrosis. Page 1 of [address] [place] [address] PHONE: [phone] FAX: [phone] Name .................. : CALLIE Young Acct Number.................. : [id number] ROOM. ................. : MR Number ................... : [id number] Stay type ............. : O/P Discharge Date......... ... : 04/10/21 Admit Date ......... : 04/10/21 Admit Phys .................... : JANNY Date of ....... : 1935 Family Phys ................... : MAN SUAREZ Phone .................. : [phone] Age ................................ : 85 Film# .................. .:[id number] Sex ................................. : M Unsigned transcriptions are preliminary reports and do not represent a medical or legal document CT ABD & PELV W/[place] OR[place] W/[place] [id number] COMPLETE:04/10/21 11:49 KATIA [id number] Reason for Exam: H/O BLADDER CA , [...] evaluated for masses. Page 2 of [address] [place] [address] PHONE: [phone] FAX: [phone] Name .................. : CALLIE Young Acct Number.................. : [id number] ROOM. ................. : Number ................... : [id number] Stay type ............. : O/P Discharge Date......... ... : 04/10/21 Admit Date ......... : 04/10/21 Admit Phys .................... : JANNY Date of ....... : 1935 Family Phys ................... : MAN SUAREZ Phone .................. : [phone] Age ................................ : 85 Film# .................. .:[id number] Sex ................................. : M Unsigned transcriptions are preliminary reports and do not represent a medical or legal document CT ABD & PELV W/[place] ORAL W/[place] [id number] COMPLETE:04/10/21 11:49 KATIA [id number] Reason for Exam: H/O BLADDER CA , MONITORING R/O METS Electronically Reviewed and Signed By Brendan Thurman MD , 04/10/21 14:26, JARET Transcribe Initials: JULIEN, Transcribe Date: 04/10/21 12:57, Dictation Date: Copy for: GLORIA WAGONER via fax Copy for: MAN DILLARD via fax Copy for: Serge MED REC Page 3 of 3 Name Value Range Interpretation Code Description Data Izabela rce(s) Supporting Document(s) ID Date Data Source [id number] 04/05/2021 11:24:00 AM EDT [facility] ID Date Data Source [id number] 04/05/2021 11:24:00 AM EDT [facility] Name Value Range Interpretation Code Description Data Izabela rce(s) Supporting Document(s) Ferritin [Mass/volume] in Serum or Plasma 318 ng/mL 30-400 [facility] ([facility] ID Date Data Source [id number] 04/05/2021 11:23:00 AM EDT [facility] Name Value Range Interpretation Code Description Data Izabela rce(s) Supporting Document(s) Erythrocyte sedimentation rate by Westergren method 60 mm/hr 0-20 Above high normal [facility] ([facility] ) ID Date Data Source [id number] 04/05/2021 11:23:00 AM EDT [facility] ([facility] Name Value Range Interpretation Code Description Data Izabela rce(s) Supporting Document(s) WBC 4.7 10E3/uL 4.1-10.9 [facility] RBC 3.25 10E6/uL 4.20-6.30 Below low normal [facility] ([facility] HGB 8.9 g/dL 12.0-18.0 Below low normal [facility] ( [facility] HCT 28.2 % 37.0-51.0 Below low normal [facility] ( [facility] MCHC 31.6 g/dL 31.0-36.0 [facility] MCV 86.8 fL 80.0-97.0 [facility] MCH 27.4 pg 26.0-32.0 [facility] Lym% 30.0 % 10.0-58.5 [facility] PLT 271 10E3/uL 140-440 [facility] RDW-CV 13.3 % 11.5-14.5 [facility] MXD% 12.7 % 0.1-24.0 [facility] Lym# 1.4 10E3/uL 0.6-4.1 [facility] Neut% 57.3 % 37.0-92.0 [facility] MXD# 0.6 10E3/uL 0.0-1.8 [facility] Neut# 2.7 % 2.0-7.8 [facility] MPV 8.8 fL 9.0-13.0 Below low normal [facility] ( [facility] Comment Laboratory test result [facility] ([facility] ID Date Data Source [id number] 04/04/2021 05:53:00 PM EDT [facility] Name Value Range Interpretation Code Description Data Izabela rce(s) Supporting Document(s) BASIC METABOLIC PANEL [facility] BASIC METABOLIC PANEL Sodium [Moles/volume] in Serum or Plasma 139 mEq/L 134 - 153 [facility] Potassium [Moles/volume] in Serum or Plasma 4.4 mEq/L 3.6 - 5.0 [facility] Chloride [Moles/volume] in Serum or Plasma 104 mEq/L 98 - 107 [facility] Carbon dioxide, total [Moles/volume] in Serum or Plasma 26 MEQ/L 22 - 30 [facility] Glucose [Mass/volume] in Serum or Plasma 105 MG/DL 70 - 99 H [facility] BUN 32 MG/DL 7 - 21 H [facility] Creatinine [Mass/volume] in Serum or Plasma 1.9 MG/DL 0.7 - 1.5 H [facility] BUN/CREAT 17 8 - 27 [facility] Calcium [Mass/volume] in Serum or Plasma 8.9 MG/DL 8.4 - 10.2 [facility] Anion gap 3 in Serum or Plasma 9.0 mmol/L 8.0 - 16.0 [facility] 85 [facility] AMER GFR 44 mL/min [facility] NON-AA GFR 36 mL/min [facility] hus[facility] Male GFR Inter prentation 20-49 yrs [...] >32 mL/min Normal ID Date Data Source [id number] 04/04/2021 04:52:00 PM EDT [facility] Name Value Range Interpretation Code Description Data Izabela rce(s) Supporting Document(s) Basic Metabolic Pane Laboratory test result [facility] ([facility] Is patient fasting? N Sodium 139 meq/L 134-153 [facility] Is patient fasting? N Potassium 4.4 meq/L 3.6-5.0 [facility] Is patient fasting? N Chloride 104 meq/L 98-107 [facility] Is patient fasting? N Glucose 105 mg/dL 70-99 Above high normal [facility] ([facility] Is patient fasting? N Co2 26 meq/L 22-30 [facility] Is patient fasting? N BUN 32 mg/dL 7-21 Above high normal [facility] Is patient fasting? N Creatinine 1.9 mg/dL 0.7-1.5 Above high normal [facility] ([facility] Is patient fasting? N Calcium 8.9 mg/dL 8.4-10.2 [facility] Is patient fasting? N BUN/Creat 17 8-27 [facility] Is patient fasting? N Anion Gap 9.0 mmol/L 8.0-16.0 [facility] Is patient fasting? N Afr Amer GFR 44 mL/min [facility] Is patient fasting? N Age 85 yrs [facility] Is patient fasting? N Non-Aa GFR 36 mL/min [facility] Is patient fasting? N ID Date Data Source [id number] 03/29/2021 01:43:00 [place] [address] OPERATIVE SUMMARYNAME: CALLIE Young DATE OF : 1935ENDING PHYS: FIDEL CAMILO MD DATE: 03/27/21 MR#: [id number] PROCEDURE: 03/27/2021RE-OPERATIVE DIAGNOSIS: Bilateral hydronephrosis secondary to bladder cancer.POST-OPERATIVE DIAGNOSIS: Bilateral hydronephrosis secondary to bladder cancer.PROCEDURE PERFORMED: 1. Bilateral nephrostomy tube exchange. 2. Bilateral antegrade nephrostograms.ATTENDING SURGEON: Dr. Fidel Camilo.PHYSICIAN CORPORATE COORDINATOR: EDITH Angulo.ANESTHESIA: Local.ESTIMATED BLOOD LOSS: Minimal.COMPLICATIONS: None.DRAINS: None.DISPOSITION: To the Ambulatory Surgical Unit.CONDITION: Stable.INTRAOPERTATIVE FINDINGS:Bilateral hydronephrosis with bilateral n ephrostomy tubes in good position.INDICATION FOR PROCEDURE:Mr. Goyo Ledesma is a gentleman with bilateral hydronephrosis secondary to bladder cancer.He has had bilateral nephrostomy in place and presented for bilateral nephrostomy tubesexchanges.DETAILS OF PROCEDURE:After a detailed informed consent was obtained from Mr. Ledesma, he was wheeled into theoperating room and installed on the operating table in the prone position. The indwellingnephrostomy tube sites were exposed. After ensuring the patient was comfortable and monitoring [address] [place] [address] OPERATIVE SUMMARYNAME: CALLIE Young DATE OF : 1935 PHYS: FIDEL CAMILO MD DATE: 03/27/21 MR#: [id number] were placed on the patient, the nephrostomy tube sites were cleaned, prepped, and drapedin the usual sterile fashion. We then cut the end of the nephrostomy tube and the time-out wascompleted. Under fluoroscopic guidance, a 0.03 guidewire was inserted through the nephrostomytube into the collecting system of the kidney, and the indwelling nephrostomy tube was pulled out.Over the guidewire, a 10 [place] nephrostomy tube was advanced until it got [...] well-tolerated, and there were no complications.DD: FIDEL CAMILO MD 03/29/21 12:08DT: JULIEN 03/29/21 13:35DS: FIDEL CAMILO MD 04/02/21 08:30 2 Name Value Range Interpretation Code Description Data [facility] rce(s) Supporting Document(s) ID Date Data Source [id number] 03/29/2021 11:34:00 AM EDT [facility] ([facility] Name Value Range Interpretation Code Description Data [facility] rce(s) Supporting Document(s) Request Problem Laboratory test result [facility] ([facility] Test not performed. No stool culture tra nsport device received. TEST: [id number] GI Profile, Stool, PCR ID Date Data Source [id number] 03/29/2021 11:34:00 AM EDT [facility] ([facility] Name Value Range Interpretation Code Description [facility]) Ova + Parasite Exam Laboratory test result [facility] These results were obtained [...] a parasitic infection. ID Date Data Source [id number] 03/29/2021 11:34:00 AM EDT [facility] ([facility] Name Value Range Interpretation Code Description Data [facility] Supporting Document(s) Campylobacter Laboratory test result [facility] [...] performed Sapovirus Laboratory test result [facility] ([facility] Test not performed Rotavirus A Laboratory test result [facility] ([facility] Test not performed Laboratory test finding (navigational concept) Laboratory test result [facility] ([facility] Test not performed ID Date Data Source [id number] 03/27/2021 02:37:00 PM EDT [facility] ([facility] Name Value Range Interpretation Code Description Data Izabela rce(s) Supporting Document(s) Laboratory test finding (navigational concept) Laboratory test result [facility] ([facility] Campylobacter Laboratory test result [facility] ([facility] Laboratory test finding (navigational concept) Laboratory test result [facility] ([facility] Vibrio Laboratory test result [facility] ([facility] Salmonella Laboratory test result [facility] ([facility] Laboratory test finding (navigational concept) Laboratory test result [facility] ([facility] Laboratory test finding (navigational concept) Laboratory test result [facility] ([facility] Laboratory test finding (navigational concept) Laboratory test result [facility] ([facility] Laboratory test finding (navigational concept) Laboratory test result [facility] ([facility] Laboratory test finding (navigational concept) Laboratory test result [facility] ([facility] Laboratory test finding (navigational concept) Laboratory test result [facility] ([facility] Laboratory test finding (navigational concept) Laboratory test result [facility] ([facility] Laboratory test finding (navigational concept) Laboratory test result [facility] ([facility] Entamoeba histolytica Laboratory test result [facility] ([facility] Laboratory test finding (navigational concept) Laboratory test result [facility] ([facility] Cryptosporidium Laboratory test result [facility] ([facility] Laboratory test finding (navigational concept) Laboratory test result [facility] ([facility] Astrovirus Laboratory test result [facility] ([facility] Giardia lamblia Laboratory test result [facility] ([facility] Laboratory test finding (navigational concept) Laboratory test result [facility] ([facility] Sapovirus Laboratory test result [facility] ([facility] Rotavirus A Laboratory test result M [facility] ([facility] ID Date Data Source [id number] 03/25/2021 09:30:00 AM EDT [facility] Name Value Range Interpretation Code Description Data Izabela rce(s) Supporting Document(s) SARS coronavirus 2 RNA Not Detected [facility] [place] This lab was ordered by [facility] elva and reported by [facility]. ID Date Data Source [id number] 03/26/2021 02:10:00 PM EDT [facility] Name Value Range Interpretation Code Description Data Izabela rce(s) Supporting Document(s) SARS-CoV-2, JOHANNE Not Detected Not Detected [facility] This nucleic acid amplification test was developed and its performancecharacteristics determined by [employer]. Nucleic acidamplification tests include RT-PCR and TMA. [...] assay. SARS-CoV-2, JOHANNE 2 DAY TAT Performed [facility] ID Date Data Source [id number] 03/25/2021 09:30:00 AM EDT [facility] ([facility] Name Value Range Interpretation Code Description Data Izabela rce(s) Supporting Document(s) Laboratory test finding (navigational concept) Laboratory test result [facility] ([facility] Sars-CoV-2, Johanne Laboratory test result [facility] ([facility] This nucleic acid amplification test was developed and its performance characteristics determined by [employer]. Nucleic acid amplification tests include RT-PCR and [...] in this assay. ID Date Data Source [id number] 02/13/2021 04:33:00 PM EDT [facility] Name Value Range Interpretation Code Description Data Izabela rce(s) Supporting Document(s) CBC W/AUTOMATED DIFF [facility] COMPLETE BLOOD COUNT Leukocytes [#/volume] in Blood by Automated count 6.5 10^3/uL 4.2 - 1 1.0 [facility] Erythrocytes [#/volume] in Blood by Automated count 3.18 10^6/uL 4. 50 - 6.30 L [facility] Hemoglobin [Mass/volume] in Blood 9.3 g/dL 14.0 - 16.0 L [facility] Hematocrit [Volume Fraction] of Blood by Automated count 28.8 % 4 1.0 - 51.0 L [facility] Erythrocyte mean corpuscular volume [Entitic volume] by Auto mated count 90.6 fL 80.0 - 94.0 [facility] Erythrocyte mean corpuscular hemoglobin [Entitic mass] by Automated count 29.2 pg 27.0 - 34.0 [facility] Erythrocyte mean corpuscular hemoglobin concentration [Mass/volume] by Automated count 32.3 g/dL 31.0 - 36.0 [facility] Erythrocyte distribution width [Ratio] by Automated count 13.1 % 11.5 - 14.8 [facility] Platelets [#/volume] in Blood by Automated count 251 10^3/uL 150 - 45 0 [facility] Platelet mean volume [Entitic volume] in Blood by Automated count 9.8 fL 7.4 - 10.4 [facility] Neutrophils/100 leukocytes in Blood by Automated count 62.9 % 37. 0 - 80.0 [facility] Lymphocytes/100 leukocytes in Blood by Manual count 18.7 % 25.0 - 40.0 L [facility] Monocytes/100 leukocytes in Blood by Automated count 10.7 % 3.0 - 8.0 H [facility] Eosinophils/100 leukocytes in Blood by Automated count 6.3 % 0.0 - 7.0 [facility] Basophils/100 leukocytes in Blood by Automated count 0.8 % 0.0 - 2.0 [facility] %IG 0.6 % 0.0 - 0.0 H [facility] %NRBC 0.0 % 0.0 - 0.0 [facility] al Neutrophils [#/volume] in Blood by Automated count 4.11 10^3/uL 2.00 - 6.90 [facility] [facility] Lymph[facility] [#/volume] in Blood by Automated count 1.22 10^3/uL 0.60 - 3.40 [facility] Monocytes [#/volume] in Blood by Automated count 0.70 10^3/uL 0.00 - 0.90 [facility] Eosinophils [#/volume] in Blood by Automated count 0.41 10^3/uL 0.00 - 0.70 [facility] Basophils [#/volume] in Blood by Automated count 0.05 10^3/uL 0.00 - 0.20 [facility] #IG 0.04 10^3/uL 0.00 - 0.10 [facility] #NRBC 0.00 10^3/uL 0.00 - 0.00 [facility] ospital MANUAL DIFF NOT INDICATED [facility] RBC MORPH NOT INDICATED [facility] spital ID Date Data Source [id number] 02/13/2021 04:19:00 PM EDT [facility] ([facility] Name Value Range Interpretation Code Description Data Izabela rce(s) Supporting Document(s) CBC W/Automated Diff Laboratory test result [facility] ([facility] .~.~R31.0 RBC 3.18 10^6/uL 4.50-6.30 Below low normal [facility] ([facility] .~.~R31.0 WBC 6.5 10^3/uL 4.2-11.0 [facility] ([facility] .~.~R31.0 Hematocrit 28.8 % 41.0-51.0 Below low normal [facility] ( [facility] .~.~R31.0 MCV 90.6 fL 80.0-94.0 [facility] ([facility] .~.~R31.0 Hemoglobin 9.3 g/dL 14.0-16.0 Below low normal [facility] ( [facility] .~.~R31.0 MCHC 32.3 g/dL 31.0-36.0 [facility] ([facility] .~.~R31.0 MCH 29.2 pg 27.0-34.0 [facility] ([facility] .~.~R31.0 RDW 13.1 % 11.5-14.8 [facility] ([facility] .~.~R31.0 MPV 9.8 fL 7.4-10.4 [facility] ([facility] .~.~R31.0 Platelets 251 10^3/uL 150-450 [facility] ([facility] .~.~R31.0 Lymph 18.7 % 25.0-40.0 Below low normal [facility] ( [facility] .~.~R31.0 Summit 10.7 % 3.0-8.0 Above high normal [facility] ([facility] .~.~R31.0 Neut 62.9 % 37.0-80.0 [facility] ([facility] .~.~R31.0 Eos 6.3 % 0.0-7.0 [facility] ([facility] .~.~R31.0 Baso 0.8 % 0.0-2.0 [facility] ([facility] .~.~R31.0 %Ig 0.6 % 0.0-0.0 Above high normal [facility] ([facility] .~.~R31.0 %NRBC 0.0 % 0.0-0.0 [facility] ([facility] .~.~R31.0 #Neut 4.11 10^3/uL 2.00-6.90 [facility] ([facility] .~.~R31.0 #Lymph 1.22 10^3/uL 0.60-3.40 [facility] ([facility] .~.~R31.0 #Eos 0.41 10^3/uL 0.00-0.70 [facility] ([facility] .~.~R31.0 #Summit 0.70 10^3/uL 0.00-0.90 [facility] ([facility] .~.~R31.0 #Ig 0.04 10^3/uL 0.00-0.10 [facility] ([facility] .~.~R31.0 #Baso 0.05 10^3/uL 0.00-0.20 [facility] ([facility] .~.~R31.0 Manual Diff Laboratory test result M EDENT ([facility] .~.~R31.0 #NRBC 0.00 10^3/uL 0.00-0.00 [facility] ([facility] .~.~R31.0 RBC Morph Laboratory test result ME MULLEN ([facility] .~.~R31.0 ID Date Data Source [id number] 01/14/2021 11:32:00 AM EDT [facility] ([facility] Name Value Range Interpretation Code Description Data Izabela rce(s) Supporting Document(s) Sars-CoV-2, Johanne Laboratory test result DENNISEBETH ([facility] This nucleic acid amplification test was developed and its performance characteristics determined by [email or web address]. Nucleic acid amplification tests include RT-PCR and [...] test finding (navigational concept) Laboratory test result ARABELLA ([facility] ID Date Data Source [id number] 01/14/2021 11:32:00 AM EDT [facility] Name Value Range Interpretation Code Description Data Izabela rce(s) Supporting Document(s) SARS coronavirus 2 RNA Not Detected [facility] This lab was ordered by [facility] elva and reported by [email or web address]. ID Date Data Source [id number] 01/15/2021 03:15:00 PM EDT [facility] Name Value Range Interpretation Code Description Data Izabela rce(s) Supporting Document(s) SARS-CoV-2, JOHANNE Not Detected Not Detected [facility] This nucleic acid amplification test was developed and its performancecharacteristics determined by [employer]. Nucleic acidamplification tests include RT-PCR and TMA. [...] assay. SARS-CoV-2, JOHANNE 2 DAY TAT Performed [facility] ID Date Data Source [id number] 01/02/2021 03:10:00 PM EDT [facility] ([facility] SRC:UA VOIDED ID Date Data Source [id number] 01/02/2021 02:28:00 PM EDT [facility] ([facility] Name Value Range Interpretation Code Description Data Izabela rce(s) Supporting Document(s) Color Laboratory test result [facility] ([facility] [...] HCT IS 5% LESS SOURCE FOR DATA: [employer] 1800 OPERATION MANUAL( AUTOMATED BLOOD COUNTS AND [...] Normal Glucose-Ua Laboratory test result ME MULLEN ([facility] NORMAL RANGES Age [...] HCT IS 5% LESS SOURCE FOR DATA: [employer] 1800 OPERATION MANUAL( AUTOMATED BLOOD COUNTS AND [...] >32 mL/min Normal Clarity Laboratory test result [facility] ([facility] NORMAL RANGES Age [...] HCT IS 5% LESS SOURCE FOR DATA: [employer] 1800 OPERATION MANUAL( AUTOMATED BLOOD COUNTS AND [...] >32 mL/min Normal Bilirubin,Urine Laboratory test result [facility] ([facility] NORMAL RANGES Age [...] HCT IS 5% LESS SOURCE FOR DATA: Ravel Law DYN 1800 OPERATION MANUAL( AUTOMATED BLOOD COUNTS [...] >32 mL/min Normal Ketone Laboratory test result [facility] ([facility] NORMAL RANGES Age [...] HCT IS 5% LESS SOURCE FOR DATA: [employer] 1800 OPERATION MANUAL( AUTOMATED BLOOD COUNTS AND [...] HCT IS 5% LESS SOURCE FOR DATA: [employer] 1800 OPERATION MANUAL( AUTOMATED BLOOD COUNTS AND [...] >32 mL/min Normal pH 5.0 # 5.0-8.0 [facility] ([facility] NORMAL [...] HCT IS 5% LESS SOURCE FOR DATA: [employer] 1800 OPERATION MANUAL( AUTOMATED BLOOD COUNTS AND [...] mg/dL Abnormal (applies to non-numeric res ults) [facility] ([facility] NORMAL RANGES [...] HCT IS 5% LESS SOURCE FOR DATA: [employer] 1800 OPERATION MANUAL( AUTOMATED BLOOD COUNTS AND [...] mL/min Normal Urobilinogen 0.2 NA 0.2-1.0 [facility] NORMAL RANGES Age WBC RBC [...] HCT IS 5% LESS SOURCE FOR DATA: [employer] 1800 OPERATION MANUAL( AUTOMATED BLOOD COUNTS AND [...] HCT IS 5% LESS SOURCE FOR DATA: [employer] 1800 OPERATION MANUAL( AUTOMATED BLOOD COUNTS AND [...] Abnormal (applies to non -numeric results) ARABELLA ([facility] NORMAL RANGES Age [...] HCT IS 5% LESS SOURCE FOR DATA: [employer] 1800 OPERATION MANUAL( AUTOMATED BLOOD COUNTS AND [...] Comment Laboratory test result Above high normal [facility] ([facility] NORMAL RANGES Age [...] HCT IS 5% LESS SOURCE FOR DATA: [employer] 1800 OPERATION MANUAL( AUTOMATED BLOOD COUNTS AND [...] >32 mL/min Normal ID Date Data Source [id number] 01/02/2021 02:28:00 PM EDT [facility] ([facility] Name Value Range Interpretation Code Description Data Izabela rce(s) Supporting Document(s) Hemoglobin A1c/Hemoglobin.total in Blood 5.8 % 4.40-6.10 [facility] ([facility] NORMAL RANGES Age [...] HCT IS 5% LESS SOURCE FOR DATA: [employer] 1800 OPERATION MANUAL( AUTOMATED BLOOD COUNTS AND [...] >32 mL/min Normal ID Date Data Source [id number] 01/02/2021 02:28:00 PM EDT [facility] ([facility] [...] HCT IS 5% LESS SOURCE FOR DATA: [employer] 1800 OPERATION MANUAL( AUTOMATED BLOOD COUNTS AND [...] Glu 143 mg/dL 70-110 Above high normal [facility] ([facility] NORMAL RANGES [...] HCT IS 5% LESS SOURCE FOR DATA: [employer] 1800 OPERATION MANUAL( AUTOMATED BLOOD COUNTS AND [...] >32 mL/min Normal Na 142 mmol/L 136-145 [facility] ([facility] NORMAL [...] HCT IS 5% LESS SOURCE FOR DATA: [employer] 1800 OPERATION MANUAL( AUTOMATED BLOOD COUNTS AND [...] above >32 mL/min Normal BUN/Creatinine Ratio 20.2 Calc [facility] ([facility] NORMAL RANGES Age WBC RBC [...] HCT IS 5% LESS SOURCE FOR DATA: [employer] 1800 OPERATION MANUAL( AUTOMATED BLOOD COUNTS AND [...] Creat 2.4 mg/dL 0.7-1.2 Above high normal [facility] ([facility] NORMAL RANGES Age [...] HCT IS 5% LESS SOURCE FOR DATA: [employer] 1800 OPERATION MANUAL( AUTOMATED BLOOD COUNTS AND [...] mmol/L 98.0-107.0 Above high normal MEDEN T ([facility] NORMAL RANGES Age [...] HCT IS 5% LESS SOURCE FOR DATA: [employer] 1800 OPERATION MANUAL( AUTOMATED BLOOD COUNTS AND [...] >32 mL/min Normal K 4.4 mmol/L 3.5-5.1 [facility] ([facility] NORMAL RANGES Age WBC [...] TP 5.9 g/dL 6.6-8.7 Below low normal [facility] ( [facility] NORMAL RANGES [...] HCT IS 5% LESS SOURCE FOR DATA: [employer] 1800 OPERATION MANUAL( AUTOMATED BLOOD COUNTS AND [...] >32 mL/min Normal CA 8.6 mg/dL 8.6-10.2 [facility] NORMAL RANGES Age [...] HCT IS 5% LESS SOURCE FOR DATA: [employer] 1800 OPERATION MANUAL( AUTOMATED BLOOD COUNTS AND [...] >32 mL/min Normal Co2 22.4 mmol/L 22.0-29.0 [place] ([facility] NORMAL RANGES Age WBC [...] HCT IS 5% LESS SOURCE FOR DATA: [employer] 1800 OPERATION MANUAL( AUTOMATED BLOOD COUNTS AND [...] >32 mL/min Normal Alb 3.8 g/dL 3.5-5.2 [facility] ([facility] NORMAL RANGES [...] HCT IS 5% LESS SOURCE FOR DATA: [employer] 1800 OPERATION MANUAL( AUTOMATED BLOOD COUNTS AND [...] HCT IS 5% LESS SOURCE FOR DATA: [employer] 1800 OPERATION MANUAL( AUTOMATED BLOOD COUNTS AND [...] >32 mL/min Normal A/G Ratio 1.8 Calc ARABELLA ([facility] NORMAL [...] HCT IS 5% LESS SOURCE FOR DATA: [employer] 1800 OPERATION MANUAL( AUTOMATED BLOOD COUNTS AND [...] mL/min Normal Ast (Sgot) 15 U/L 0-40 [facility] NORMAL RANGES Age WBC RBC [...] HCT IS 5% LESS SOURCE FOR DATA: [employer] 1800 OPERATION MANUAL( AUTOMATED BLOOD COUNTS AND [...] >32 mL/min Normal Alp 90.0 U/L 40-129 [facility] ([facility] NORMAL RANGES [...] HCT IS 5% LESS SOURCE FOR DATA: [employer] 1800 OPERATION MANUAL( AUTOMATED BLOOD COUNTS AND [...] mL/min Normal Alt (SGPT) 20 U/L 0-41 [facility] ([facility] NORMAL RANGES [...] HCT IS 5% LESS SOURCE FOR DATA: [employer] 1800 OPERATION MANUAL( AUTOMATED BLOOD COUNTS AND [...] >32 mL/min Normal Anion Gap 16 mmol/L [facility] NORMAL RANGES Age [...] >32 mL/min Normal Tbili 0.21 mg/dL 0.0-1.2 [place] ([facility] NORMAL RANGES Age WBC [...] HCT IS 5% LESS SOURCE FOR DATA: Ravel Law DYN 1800 OPERATION MANUAL( AUTOMATED BLOOD COUNTS [...] HCT IS 5% LESS SOURCE FOR DATA: [employer] 1800 OPERATION MANUAL( AUTOMATED BLOOD COUNTS AND [...] and above >32 mL/min Normal eGFR Non-Afr. Cymro 24 # [facility] ([facility] [...] HCT IS 5% LESS SOURCE FOR DATA: [employer] 1800 OPERATION MANUAL( AUTOMATED BLOOD COUNTS AND [...] above >32 mL/min Normal eGFR 27 # [facility] ( [facility] [...] HCT IS 5% LESS SOURCE FOR DATA: [employer] 1800 OPERATION MANUAL( AUTOMATED BLOOD COUNTS AND [...] >32 mL/min Normal ID Date Data Source [id number] 01/02/2021 02:28:00 PM EDT [facility] ([facility] Name Value Range Interpretation Code Description Data Izabela rce(s) Supporting Document(s) WBC 5.9 10E3/uL 4.1-10.9 [facility] ([facility] NORMAL RANGES Age WBC [...] HCT IS 5% LESS SOURCE FOR DATA: [employer] 1800 OPERATION MANUAL( AUTOMATED BLOOD COUNTS AND [...] RBC 3.50 10E6/uL 4.20-6.30 Below low normal [facility] ([facility] NORMAL RANGES [...] HCT IS 5% LESS SOURCE FOR DATA: [employer] 1800 OPERATION MANUAL( AUTOMATED BLOOD COUNTS AND [...] HGB 10.1 g/dL 12.0-18.0 Below low normal [facility] ( [facility] NORMAL RANGES Age [...] HCT IS 5% LESS SOURCE FOR DATA: [employer] 1800 OPERATION MANUAL( AUTOMATED BLOOD COUNTS AND [...] HCT 32.3 % 37.0-51.0 Below low normal [facility] ( [facility] NORMAL RANGES Age [...] HCT IS 5% LESS SOURCE FOR DATA: [employer] 1800 OPERATION MANUAL( AUTOMATED BLOOD COUNTS AND [...] >32 mL/min Normal MCV 92.3 fL 80.0-97.0 [facility] ([facility] NORMAL RANGES Age [...] >32 mL/min Normal MCH 28.9 pg 26.0-32.0 [facility] ([facility] NORMAL RANGES Age WBC [...] HCT IS 5% LESS SOURCE FOR DATA: [employer] 1800 OPERATION MANUAL( AUTOMATED BLOOD COUNTS AND [...] >32 mL/min Normal PLT 267 10E3/uL 140-440 [facility] ([facility] NORMAL RANGES Age WBC [...] HCT IS 5% LESS SOURCE FOR DATA: [employer] 1800 OPERATION MANUAL( AUTOMATED BLOOD COUNTS AND [...] >32 mL/min Normal MCHC 31.3 g/dL 31.0-36.0 ARABELLA ([facility] NORMAL [...] HCT IS 5% LESS SOURCE FOR DATA: [employer] 1800 OPERATION MANUAL( AUTOMATED BLOOD COUNTS AND [...] >32 mL/min Normal Lym% 35.5 % 10.0-58.5 [facility] ([facility] NORMAL [...] HCT IS 5% LESS SOURCE FOR DATA: [employer] 1800 OPERATION MANUAL( AUTOMATED BLOOD COUNTS AND [...] HCT IS 5% LESS SOURCE FOR DATA: [employer] 1800 OPERATION MANUAL( AUTOMATED BLOOD COUNTS AND [...] >32 mL/min Normal Neut% 54.8 % 37.0-92.0 [facility] ([facility] NORMAL [...] HCT IS 5% LESS SOURCE FOR DATA: [employer] 1800 OPERATION MANUAL( AUTOMATED BLOOD COUNTS AND [...] mL/min Normal Lym# 2.1 10E3/uL 0.6-4.1 ARABELLA ([facility] NORMAL RANGES Age WBC [...] HCT IS 5% LESS SOURCE FOR DATA: [employer] 1800 OPERATION MANUAL( AUTOMATED BLOOD COUNTS AND [...] >32 mL/min Normal MXD% 9.7 % 0.1-24.0 [facility] ([facility] NORMAL RANGES Age WBC RBC HGB [...] HCT IS 5% LESS SOURCE FOR DATA: [employer] 1800 OPERATION MANUAL( AUTOMATED BLOOD COUNTS AND [...] >32 mL/min Normal Neut# 3.2 % 2.0-7.8 [facility] NORMAL RANGES Age [...] MPV 8.5 fL 9.0-13.0 Below low normal [facility] ( [facility] NORMAL RANGES Age [...] HCT IS 5% LESS SOURCE FOR DATA: [employer] 1800 OPERATION MANUAL( AUTOMATED BLOOD COUNTS AND [...] >32 mL/min Normal MXD# 0.6 10E3/uL 0.0-1.8 [facility] ([facility] NORMAL RANGES Age WBC [...] HCT IS 5% LESS SOURCE FOR DATA: [employer] 1800 OPERATION MANUAL( AUTOMATED BLOOD COUNTS AND [...] >32 mL/min Normal ID Date Data Source [id number] 11/30/2020 02:33:00 PM EDT [facility] ([facility] Name Value Range Interpretation Code Description Data Izabela rce(s) Supporting Document(s) Urine Culture, Routine Laboratory test result Ab normal (applies to non-numeric results) [facility] ([facility] ) SRC:CATHETER Bacteria identified in Urine by Culture Laboratory test result Abnormal (applies to non-numeric results) [facility] ([facility] SRC:CATHETER Bacteria identified in Urine by Culture Laboratory test result Abnormal (applies to non-numeric results) [facility] ([facility] SRC:CATHETER Antimicrobial Susceptibility Laboratory test result [facility] ([facility] SRC:CATHETER ID Date Data Source [id number] 11/30/2020 02:08:00 PM EDT [facility] ([facility] Name Value Range Interpretation Code Description Data Izabela rce(s) Supporting Document(s) Color Laboratory test result ARABELLA ([facility] NORMAL RANGES Age [...] HCT IS 5% LESS SOURCE FOR DATA: [employer] 1800 OPERATION MANUAL( AUTOMATED BLOOD COUNTS AND [...] Normal Glucose-Ua Laboratory test result ME MULLEN ([facility] NORMAL RANGES Age [...] HCT IS 5% LESS SOURCE FOR DATA: [employer] 1800 OPERATION MANUAL( AUTOMATED BLOOD COUNTS AND [...] >32 mL/min Normal Clarity Laboratory test result [facility] ([facility] NORMAL RANGES Age [...] HCT IS 5% LESS SOURCE FOR DATA: [employer] 1800 OPERATION MANUAL( AUTOMATED BLOOD COUNTS AND [...] >32 mL/min Normal Bilirubin,Urine Laboratory test result [facility] ([facility] NORMAL RANGES Age [...] HCT IS 5% LESS SOURCE FOR DATA: Ravel [employer] DYN 1800 OPERATION MANUAL( AUTOMATED BLOOD COUNTS [...] >32 mL/min Normal Ketone Laboratory test result [facility] ([facility] NORMAL RANGES Age [...] HCT IS 5% LESS SOURCE FOR DATA: Ravel [employer] DYN 1800 OPERATION MANUAL( AUTOMATED BLOOD COUNTS [...] HCT IS 5% LESS SOURCE FOR DATA: [employer] 1800 OPERATION MANUAL( AUTOMATED BLOOD COUNTS AND [...] HCT IS 5% LESS SOURCE FOR DATA: [employer] 1800 OPERATION MANUAL( AUTOMATED BLOOD COUNTS AND [...] >32 mL/min Normal pH 5.0 # 5.0-8.0 [facility] ([facility] NORMAL [...] HCT IS 5% LESS SOURCE FOR DATA: [employer] 1800 OPERATION MANUAL( AUTOMATED BLOOD COUNTS AND [...] mg/dL Abnormal (applies to non-numeric res ults) [facility] ([facility] NORMAL RANGES [...] HCT IS 5% LESS SOURCE FOR DATA: [employer] 1800 OPERATION MANUAL( AUTOMATED BLOOD COUNTS AND [...] >32 mL/min Normal Urobilinogen 0.2 NA 0.2-1.0 [facility] ([facility] NORMAL RANGES Age WBC [...] HCT IS 5% LESS SOURCE FOR DATA: [employer] 1800 OPERATION MANUAL( AUTOMATED BLOOD COUNTS AND [...] Abnormal (applies to non -numeric results) ARABELLA ([facility] NORMAL RANGES Age [...] HCT IS 5% LESS SOURCE FOR DATA: [employer] 1800 OPERATION MANUAL( AUTOMATED BLOOD COUNTS AND [...] mL/min Normal Comment Laboratory test result ARABELLA ([facility] NORMAL RANGES Age [...] HCT IS 5% LESS SOURCE FOR DATA: [employer] 1800 OPERATION MANUAL( AUTOMATED BLOOD COUNTS AND [...] result Abnormal (applies to non -numeric results) [facility] ([facility] NORMAL RANGES Age [...] >32 mL/min Normal ID Date Data Source [id number] 11/30/2020 02:08:00 PM EDT [facility] ([facility] Name Value Range Interpretation Code Description Data Izabela rce(s) Supporting Document(s) Glu 168 mg/dL 70-110 Above high normal [facility] ([facility] NORMAL RANGES Age [...] HCT IS 5% LESS SOURCE FOR DATA: [employer] 1800 OPERATION MANUAL( AUTOMATED BLOOD COUNTS AND [...] BUN 48 mg/dL 8-23 Above high normal [facility] ([facility] NORMAL RANGES Age [...] HCT IS 5% LESS SOURCE FOR DATA: [employer] 1800 OPERATION MANUAL( AUTOMATED BLOOD COUNTS AND [...] above >32 mL/min Normal BUN/Creatinine Ratio 24.0 Calc [facility] ([facility] NORMAL RANGES [...] HCT IS 5% LESS SOURCE FOR DATA: [employer] 1800 OPERATION MANUAL( AUTOMATED BLOOD COUNTS AND [...] HCT IS 5% LESS SOURCE FOR DATA: Ravel Law DYN 1800 OPERATION MANUAL( AUTOMATED BLOOD COUNTS [...] CL 97.3 mmol/L 98.0-107.0 Below low normal [facility] ([facility] [...] HCT IS 5% LESS SOURCE FOR DATA: [employer] 1800 OPERATION MANUAL( AUTOMATED BLOOD COUNTS AND [...] >32 mL/min Normal K 4.0 mmol/L 3.5-5.1 [facility] ([facility] NORMAL RANGES Age [...] HCT IS 5% LESS SOURCE FOR DATA: [employer] 1800 OPERATION MANUAL( AUTOMATED BLOOD COUNTS AND [...] Na 129 mmol/L 136-145 Below low normal [facility] ( [facility] NORMAL RANGES Age [...] HCT IS 5% LESS SOURCE FOR DATA: [employer] 1800 OPERATION MANUAL( AUTOMATED BLOOD COUNTS AND [...] >32 mL/min Normal CA 8.8 mg/dL 8.6-10.2 [facility] ([facility] NORMAL RANGES Age WBC RBC HGB [...] HCT IS 5% LESS SOURCE FOR DATA: [employer] 1800 OPERATION MANUAL( AUTOMATED BLOOD COUNTS AND [...] Co2 21.7 mmol/L 22.0-29.0 Below low normal [facility] ([facility] NORMAL RANGES Age [...] HCT IS 5% LESS SOURCE FOR DATA: Ravel Law DYN 1800 OPERATION MANUAL( AUTOMATED BLOOD COUNTS [...] TP 6.2 g/dL 6.6-8.7 Below low normal [facility] ( [facility] NORMAL [...] HCT IS 5% LESS SOURCE FOR DATA: [employer] 1800 OPERATION MANUAL( AUTOMATED BLOOD COUNTS AND [...] >32 mL/min Normal A/G Ratio 1.7 Calc [facility] ([facility] NORMAL RANGES Age [...] HCT IS 5% LESS SOURCE FOR DATA: [employer] 1800 OPERATION MANUAL( AUTOMATED BLOOD COUNTS AND [...] >32 mL/min Normal Globulin 2.3 Calc [facility] ([facility] [...] HCT IS 5% LESS SOURCE FOR DATA: [employer] 1800 OPERATION MANUAL( AUTOMATED BLOOD COUNTS AND [...] >32 mL/min Normal Alb 3.9 g/dL 3.5-5.2 [facility] ([facility] NORMAL RANGES [...] HCT IS 5% LESS SOURCE FOR DATA: [employer] 1800 OPERATION MANUAL( AUTOMATED BLOOD COUNTS AND [...] HCT IS 5% LESS SOURCE FOR DATA: [employer] 1800 OPERATION MANUAL( AUTOMATED BLOOD COUNTS AND [...] mL/min Normal Alt (SGPT) 24 U/L 0-41 [facility] NORMAL RANGES Age WBC RBC [...] HCT IS 5% LESS SOURCE FOR DATA: [employer] 1800 OPERATION MANUAL( AUTOMATED BLOOD COUNTS AND [...] mL/min Normal Osmolality-Calculated 274.8 Calc [facility] ([facility] [...] HCT IS 5% LESS SOURCE FOR DATA: [employer] 1800 OPERATION MANUAL( AUTOMATED BLOOD COUNTS AND [...] mL/min Normal Ast (Sgot) 26 U/L 0-40 [facility] ([facility] NORMAL RANGES Age WBC RBC HGB [...] HCT IS 5% LESS SOURCE FOR DATA: [employer] 1800 OPERATION MANUAL( AUTOMATED BLOOD COUNTS AND [...] >32 mL/min Normal Tbili 0.33 mg/dL 0.0-1.2 [facility] ([facility] NORMAL RANGES [...] HCT IS 5% LESS SOURCE FOR DATA: [employer] 1800 OPERATION MANUAL( AUTOMATED BLOOD COUNTS AND [...] and above >32 mL/min Normal eGFR Non-Afr. Cymro 30 # [facility] ([facility] NORMAL RANGES Age [...] HCT IS 5% LESS SOURCE FOR DATA: Ravel Law DYN 1800 OPERATION MANUAL( AUTOMATED BLOOD COUNTS [...] above >32 mL/min Normal eGFR 34 # [facility] ( [facility] NORMAL RANGES [...] HCT IS 5% LESS SOURCE FOR DATA: [employer] 1800 OPERATION MANUAL( AUTOMATED BLOOD COUNTS AND [...] >32 mL/min Normal Anion Gap 14 mmol/L [facility] NORMAL RANGES Age [...] HCT IS 5% LESS SOURCE FOR DATA: [employer] 1800 OPERATION MANUAL( AUTOMATED BLOOD COUNTS AND [...] >32 mL/min Normal ID Date Data Source [id number] 11/30/2020 02:08:00 PM EDT [facility] ([facility] Name Value Range Interpretation Code Description Data Izabela rce(s) Supporting Document(s) WBC 4.7 10E3/uL 4.1-10.9 [facility] ([facility] NORMAL RANGES Age WBC [...] HCT IS 5% LESS SOURCE FOR DATA: [employer] 1800 OPERATION MANUAL( AUTOMATED BLOOD COUNTS AND [...] HCT IS 5% LESS SOURCE FOR DATA: [employer] 1800 OPERATION MANUAL( AUTOMATED BLOOD COUNTS AND [...] RBC 3.42 10E6/uL 4.20-6.30 Below low normal [facility] ([facility] NORMAL RANGES [...] HCT IS 5% LESS SOURCE FOR DATA: [employer] 1800 OPERATION MANUAL( AUTOMATED BLOOD COUNTS AND [...] HCT 30.5 % 37.0-51.0 Below low normal [facility] ( [facility] NORMAL [...] HCT IS 5% LESS SOURCE FOR DATA: [employer] 1800 OPERATION MANUAL( AUTOMATED BLOOD COUNTS AND [...] >32 mL/min Normal MCV 89.2 fL 80.0-97.0 [facility] ([facility] NORMAL RANGES Age [...] HCT IS 5% LESS SOURCE FOR DATA: [employer] 1800 OPERATION MANUAL( AUTOMATED BLOOD COUNTS AND [...] >32 mL/min Normal MCH 28.9 pg 26.0-32.0 [facility] ([facility] NORMAL RANGES Age WBC [...] HCT IS 5% LESS SOURCE FOR DATA: [employer] 1800 OPERATION MANUAL( AUTOMATED BLOOD COUNTS AND [...] >32 mL/min Normal MCHC 32.5 g/dL 31.0-36.0 [facility] ([facility] NORMAL RANGES [...] >32 mL/min Normal PLT 235 10E3/uL 140-440 [place] ([facility] NORMAL RANGES Age WBC RBC HGB [...] HCT IS 5% LESS SOURCE FOR DATA: [employer] 1800 OPERATION MANUAL( AUTOMATED BLOOD COUNTS AND [...] >32 mL/min Normal RDW-CV 13.7 % 11.5-14.5 [facility] ([facility] NORMAL RANGES Age WBC [...] HCT IS 5% LESS SOURCE FOR DATA: [employer] 1800 OPERATION MANUAL( AUTOMATED BLOOD COUNTS AND [...] >32 mL/min Normal Lym% 24.8 % 10.0-58.5 [facility] ([facility] NORMAL RANGES Age [...] HCT IS 5% LESS SOURCE FOR DATA: [employer] 1800 OPERATION MANUAL( AUTOMATED BLOOD COUNTS AND [...] >32 mL/min Normal Neut% 61.6 % 37.0-92.0 [facility] ([facility] NORMAL [...] HCT IS 5% LESS SOURCE FOR DATA: [employer] 1800 OPERATION MANUAL( AUTOMATED BLOOD COUNTS AND [...] >32 mL/min Normal MXD% 13.6 % 0.1-24.0 [facility] ([facility] NORMAL [...] HCT IS 5% LESS SOURCE FOR DATA: [employer] 1800 OPERATION MANUAL( AUTOMATED BLOOD COUNTS AND [...] >32 mL/min Normal Neut# 2.9 % 2.0-7.8 [facility] ([facility] NORMAL [...] HCT IS 5% LESS SOURCE FOR DATA: [employer] 1800 OPERATION MANUAL( AUTOMATED BLOOD COUNTS AND [...] >32 mL/min Normal Lym# 1.2 10E3/uL 0.6-4.1 [facility] ([facility] NORMAL RANGES Age WBC [...] HCT IS 5% LESS SOURCE FOR DATA: [employer] 1800 OPERATION MANUAL( AUTOMATED BLOOD COUNTS AND [...] >32 mL/min Normal MXD# 0.6 10E3/uL 0.0-1.8 [facility] ([facility] NORMAL RANGES Age WBC RBC HGB [...] HCT IS 5% LESS SOURCE FOR DATA: [employer] 1800 OPERATION MANUAL( AUTOMATED BLOOD COUNTS AND [...] >32 mL/min Normal MPV 9.1 fL 9.0-13.0 [facility] ([facility] NORMAL RANGES Age WBC [...] >32 mL/min Normal ID Date Data Source [id number] 10/20/2020 05:56:00 [place] [address] OPERATIVE SUMMARYNAME: CALLIE Young DATE OF : 1935TTENDING PHYS: FIDEL CAMILO MD DATE: 10/19/20 MR#: [id number] PROCEDURE: 10/19/20PREOPERATIVE DIAGNOSIS: Bilateral hydronephrosisPOSTOPERATIVE DIAGNOSIS: Bilateral hydronephrosisPROCEDURE PERFORMED: Bilateral nephrostomy tube exchange with bilateral antegradenephrostogramSURGEON: Fidel Camilo M.D.CORPORATE COORDINATOR: NOE AnguloTHESIA: LocalESTIMATED BLOOD LOSS: None.COMPLICATIONS: None.DRAINS: [...] the nephrostomy tubes were cut and a [address] [place] [address] OPERATIVE SUMMARYNAME: CALLIE Young DATE OF : 1935TTENDING PHYS: FIDEL CAMILO MD DATE: 10/19/20 MR#: [id number] was inserted into the collecting system of the kidney. The indwelling nephrostomy tubeswere then removed over the guidewire. A new 10-Chilean nephrostomy tube was then inserted overthe guidewire [...] was well-tolerated and there were nocomplications.DD: FIDEL CAMILO MD 10/19/20 09:53DT: WILD 10/20/20 17:45DS: FIDEL CAMILO MD 11/06/20 20:04 2 Name Value Range Interpretation Code Description Data [facility] Supporting Document(s) ID Date Data Source [id number] 10/15/2020 09:00:00 AM EDT [facility] ([facility] Name Value Range Interpretation Code Description Data Izabela e(s) Supporting Document(s) Sars-CoV-2, Johanne Laboratory test result [facility] ([facility] This nucleic acid amplification test was developed and its performance characteristics determined by [employer]. Nucleic acid amplification tests include RT-PCR and [...] finding (navigational concept) Laboratory test result [facility] ([facility] ID Date Data Source [id number] 10/15/2020 09:00:00 AM EDT [facility] Name Value Range Interpretation Code Description Data Izabela rce(s) Supporting Document(s) SARS coronavirus 2 RNA Not Detected [facility] This lab was ordered by [facility] and reported by [email or web address]. ID Date Data Source [id number] 10/17/2020 06:17:00 AM EDT [facility] Name Value Range Interpretation Code Description Data Izabela rce(s) Supporting Document(s) SARS-CoV-2, JOHANNE Not Detected Not Detected [facility] This nucleic acid amplification test was developed and its performancecharacteristics determined by [employer]. Nucleic acidamplification tests include RT-PCR and TMA. [...] assay. SARS-CoV-2, JOHANNE 2 DAY TAT Performed [facility] ID Date Data Source [id number] 10/03/2020 02:53:00 PM EDT [facility] ([facility] Name Value Range Interpretation Code Description Data Izabela rce(s) Supporting Document(s) Creatine kinase [Enzymatic activity/volume] in Serum or Plasma 243 U/L 39-308 [facility] ([facility] NORMAL RANGES Age [...] >32 mL/min Normal ID Date Data Source [id number] 10/03/2020 02:53:00 PM EDT [facility] ([facility] Name Value Range Interpretation Code Description Data Izabela rce(s) Supporting Document(s) Glu 130 mg/dL 70-110 Above high normal [facility] ([facility] NORMAL RANGES Age [...] HCT IS 5% LESS SOURCE FOR DATA: [employer] 1800 OPERATION MANUAL( AUTOMATED BLOOD COUNTS AND [...] BUN 46 mg/dL 8-23 Above high normal [facility] ([facility] NORMAL RANGES Age [...] HCT IS 5% LESS SOURCE FOR DATA: [employer] 1800 OPERATION MANUAL( AUTOMATED BLOOD COUNTS AND [...] above >32 mL/min Normal BUN/Creatinine Ratio 21.5 [facility] ([facility] NORMAL RANGES [...] HCT IS 5% LESS SOURCE FOR DATA: [employer] 1800 OPERATION MANUAL( AUTOMATED BLOOD COUNTS AND [...] HCT IS 5% LESS SOURCE FOR DATA: [employer] 1800 OPERATION MANUAL( AUTOMATED BLOOD COUNTS AND [...] >32 mL/min Normal Na 137 mmol/L 136-145 [facility] ([facility] NORMAL RANGES Age WBC RBC [...] HCT IS 5% LESS SOURCE FOR DATA: [employer] 1800 OPERATION MANUAL( AUTOMATED BLOOD COUNTS AND [...] >32 mL/min Normal K 5.0 mmol/L 3.5-5.1 [facility] ([facility] NORMAL RANGES Age WBC [...] HCT IS 5% LESS SOURCE FOR DATA: [employer] 1800 OPERATION MANUAL( AUTOMATED BLOOD COUNTS AND [...] >32 mL/min Normal CL 106.6 mmol/L 98.0-107.0 [facility] ([facility] NORMAL RANGES Age WBC RBC [...] HCT IS 5% LESS SOURCE FOR DATA: [employer] 1800 OPERATION MANUAL( AUTOMATED BLOOD COUNTS AND [...] >32 mL/min Normal Co2 22.0 mmol/L 22.0-29.0 [facility] ([facility] NORMAL RANGES Age WBC RBC HGB [...] >32 mL/min Normal CA 8.6 mg/dL 8.6-10.2 [facility] ([facility] NORMAL RANGES Age WBC [...] HCT IS 5% LESS SOURCE FOR DATA: [employer] 1800 OPERATION MANUAL( AUTOMATED BLOOD COUNTS AND [...] TP 5.8 g/dL 6.6-8.7 Below low normal [facility] ( [facility] NORMAL RANGES [...] HCT IS 5% LESS SOURCE FOR DATA: [employer] 1800 OPERATION MANUAL( AUTOMATED BLOOD COUNTS AND [...] >32 mL/min Normal Alb 3.9 g/dL 3.5-5.2 [facility] ([facility] NORMAL RANGES Age [...] HCT IS 5% LESS SOURCE FOR DATA: [employer] 1800 OPERATION MANUAL( AUTOMATED BLOOD COUNTS AND [...] HCT IS 5% LESS SOURCE FOR DATA: [employer] 1800 OPERATION MANUAL( AUTOMATED BLOOD COUNTS AND [...] HCT IS 5% LESS SOURCE FOR DATA: [employer] 1800 OPERATION MANUAL( AUTOMATED BLOOD COUNTS AND [...] Alp 152.2 U/L 40-129 Above high normal [facility] ([facility] [...] HCT IS 5% LESS SOURCE FOR DATA: [employer] 1800 OPERATION MANUAL( AUTOMATED BLOOD COUNTS AND [...] mL/min Normal Alt (SGPT) 13 U/L 0-41 [facility] ([facility] NORMAL RANGES Age [...] HCT IS 5% LESS SOURCE FOR DATA: [employer] 1800 OPERATION MANUAL( AUTOMATED BLOOD COUNTS AND [...] >32 mL/min Normal Tbili 0.08 mg/dL 0.0-1.2 [facility] NORMAL RANGES Age WBC RBC HGB [...] HCT IS 5% LESS SOURCE FOR DATA: [employer] 1800 OPERATION MANUAL( AUTOMATED BLOOD COUNTS AND [...] mL/min Normal Ast (Sgot) 17 U/L 0-40 [facility] ([facility] NORMAL RANGES [...] HCT IS 5% LESS SOURCE FOR DATA: [employer] 1800 OPERATION MANUAL( AUTOMATED BLOOD COUNTS AND [...] >32 mL/min Normal Anion Gap 13 mmol/L [facility] ([facility] NORMAL RANGES Age [...] HCT IS 5% LESS SOURCE FOR DATA: Ravel Law DYN 1800 OPERATION MANUAL( AUTOMATED BLOOD COUNTS [...] and above >32 mL/min Normal eGFR Non-Afr. Cymro 28 # [facility] ([facility] [...] HCT IS 5% LESS SOURCE FOR DATA: [employer] 1800 OPERATION MANUAL( AUTOMATED BLOOD COUNTS AND [...] HCT IS 5% LESS SOURCE FOR DATA: [employer] 1800 OPERATION MANUAL( AUTOMATED BLOOD COUNTS AND [...] >32 mL/min Normal ID Date Data Source [id number] 10/03/2020 02:53:00 PM EDT [facility] ([facility] Name Value Range Interpretation Code Description Data Izabela rce(s) Supporting Document(s) WBC 4.1 10E3/uL 4.1-10.9 [facility] ([facility] NORMAL RANGES Age WBC [...] HCT IS 5% LESS SOURCE FOR DATA: [employer] 1800 OPERATION MANUAL( AUTOMATED BLOOD COUNTS AND [...] RBC 3.57 10E6/uL 4.20-6.30 Below low normal [facility] ([facility] [...] HCT IS 5% LESS SOURCE FOR DATA: [employer] 1800 OPERATION MANUAL( AUTOMATED BLOOD COUNTS AND [...] HGB 10.7 g/dL 12.0-18.0 Below low normal [facility] ( [facility] NORMAL [...] HCT IS 5% LESS SOURCE FOR DATA: [employer] 1800 OPERATION MANUAL( AUTOMATED BLOOD COUNTS AND [...] HCT 33.0 % 37.0-51.0 Below low normal [facility] ( [facility] NORMAL RANGES Age [...] HCT IS 5% LESS SOURCE FOR DATA: [employer] 1800 OPERATION MANUAL( AUTOMATED BLOOD COUNTS AND [...] >32 mL/min Normal MCV 92.4 fL 80.0-97.0 [facility] ([facility] NORMAL RANGES Age WBC [...] HCT IS 5% LESS SOURCE FOR DATA: [employer] 1800 OPERATION MANUAL( AUTOMATED BLOOD COUNTS AND [...] >32 mL/min Normal MCH 30.0 pg 26.0-32.0 [facility] ([facility] NORMAL RANGES Age [...] >32 mL/min Normal MCHC 32.4 g/dL 31.0-36.0 [facility] ([facility] NORMAL RANGES Age WBC [...] HCT IS 5% LESS SOURCE FOR DATA: [employer] 1800 OPERATION MANUAL( AUTOMATED BLOOD COUNTS AND [...] >32 mL/min Normal RDW-CV 12.6 % 11.5-14.5 [facility] ([facility] NORMAL RANGES Age [...] HCT IS 5% LESS SOURCE FOR DATA: [employer] 1800 OPERATION MANUAL( AUTOMATED BLOOD COUNTS AND [...] >32 mL/min Normal Lym% 34.6 % 10.0-58.5 [facility] ([facility] NORMAL RANGES Age [...] HCT IS 5% LESS SOURCE FOR DATA: [employer] 1800 OPERATION MANUAL( AUTOMATED BLOOD COUNTS AND [...] >32 mL/min Normal PLT 202 10E3/uL 140-440 [facility] ([facility] NORMAL RANGES Age WBC [...] HCT IS 5% LESS SOURCE FOR DATA: [employer] 1800 OPERATION MANUAL( AUTOMATED BLOOD COUNTS AND [...] >32 mL/min Normal Neut% 54.4 % 37.0-92.0 [facility] ([facility] NORMAL [...] HCT IS 5% LESS SOURCE FOR DATA: [employer] 1800 OPERATION MANUAL( AUTOMATED BLOOD COUNTS AND [...] >32 mL/min Normal MXD% 11.0 % 0.1-24.0 [facility] ([facility] NORMAL [...] HCT IS 5% LESS SOURCE FOR DATA: [employer] 1800 OPERATION MANUAL( AUTOMATED BLOOD COUNTS AND [...] mL/min Normal MXD# 0.5 10E3/uL 0.0-1.8 [place] ([facility] NORMAL RANGES Age WBC [...] HCT IS 5% LESS SOURCE FOR DATA: [employer] 1800 OPERATION MANUAL( AUTOMATED BLOOD COUNTS AND [...] >32 mL/min Normal Neut# 2.2 % 2.0-7.8 [facility] ([facility] NORMAL RANGES Age WBC RBC HGB [...] HCT IS 5% LESS SOURCE FOR DATA: [employer] 1800 OPERATION MANUAL( AUTOMATED BLOOD COUNTS AND [...] >32 mL/min Normal Lym# 1.4 10E3/uL 0.6-4.1 [facility] ([facility] NORMAL RANGES Age WBC [...] >32 mL/min Normal MPV 9.2 fL 9.0-13.0 [facility] ([facility] NORMAL RANGES Age [...] >32 mL/min Normal ID Date Data Source [id number] 07/27/2020 11:30:00 [place] [address] OPERATIVE SUMMARYNAME: CALLIE Young DATE OF : 1935TTENDING PHYS: FIDEL CAMILO MD [facility]#: [id number] DATE: 07/27/20 MR#: [id number] PROCEDURE: 07/27/2020RE- OPERATIVE DIAGNOSIS: History of bladder cancer with bilateral hydronephrosis.POST-OPERATIVE DIAGNOSIS: History of bladder cancer with bilateral hydronephrosis.PROCEDURE PERFORMED: 1. Surveillance cystoscopy. 2. Bilateral nephrostomy tube exchange with antegrade nephrostograms.ATTENDING SURGEON: Dr. Fidel Camilo.PHYSICIAN CORPORATE COORDINATOR: EDITH Angulo.ANESTHESIA: Local.ESTIMATED BLOOD LOSS: MinimalCOMPLICATIONS: None.DRAINS: None.DISPOSITION: To the Ambulatory Surgical Unit.CONDITION: Stable.INTRAOPERTATIVE FINDINGS:Bilat eral hydronephrosis, area of tumor recurrence at the level of the trigone, and fibrosis towardsboth ureteral orifices. Both ureteral orifices were not visualized.INDICATIONS FOR PROCEDURE:Mr. Goyo Ledesma is an 84-year-old gentleman with a history [...] well as for bilateral nephrostomytube exchanges. [address] [place] [address] OPERATIVE SUMMARYNAME: CALLIE Young DATE OF : 1935TTENDING PHYS: FIDEL CAMILO MD DATE: 07/27/20 MR#: [id number] PROCEDURE:After a detailed informed consent was obtained, Mr. Ledesma was wheeled into the operatingroom and installed [...] guidewire. On the right side a 10 Chilean nephrostomy tube wasinserted over the guidewire and [...] this report to Dr. Eber Conway.DD: FIDEL CAMILO MD 07/27/20 10:22DT: JULIEN 07/27/20 11:07DS: FIDEL CAMILO MD 08/17/20 16:26 [address] [place] [address] OPERATIVE SUMMARYNAME: CALLIE Young DATE OF : 1935TTENDING PHYS: FIDEL CAMILO MD DATE: 07/27/20 MR#: [id number] Name Value Range Interpretation Code Description Data Izabela rce(s) Supporting Document(s) ID Date Data Source [id number] 07/27/2020 07:17:00 AM EST [facility] Name Value Range Interpretation Code Description Data Izabela rce(s) Supporting Document(s) COMPREHENSIVE METABOLIC PANEL [facility] COMPREHENSIVE METABOLIC PANEL Sodium [Moles/volume] in Serum or Plasma 140 mEq/L 134 - 153 [facility] Potassium [Moles/volume] in Serum or Plasma 5.4 mEq/L 3.6 - 5.0 H [facility] Chloride [Moles/volume] in Serum or Plasma 109 mEq/L 98 - 107 H [facility] Carbon dioxide, total [Moles/volume] in Serum or Plasma 24 MEQ/L 22 - 30 [facility] Glucose [Mass/volume] in Serum or Plasma 98 MG/DL 70 - 99 [facility] BUN 53 MG/DL 7 - 21 H [facility] al Creatinine [Mass/volume] in Serum or Plasma 1.9 MG/DL 0.7 - 1.5 H [facility] BUN/CREAT 28 8 - 27 H [facility] Protein [Mass/volume] in Serum or Plasma 7.1 G/DL 6.3 - 8.2 [facility] Albumin [Mass/volume] in Serum or Plasma 3.9 G/DL 3.9 - 5.0 [facility] Globulin [Mass/volume] in Serum by calculation 3.2 GM/DL 2.4 - 3.2 [facility] A/G RATIO 1.2 0.8 - 2.0 [facility] Calcium [Mass/volume] in Serum or Plasma 8.5 MG/DL 8.4 - 10.2 [facility] Bilirubin.total [Mass/volume] in Serum or Plasma <0.7 MG/DL 0.2 - 1.3 [facility] Alkaline phosphatase [Enzymatic activity/volume] in Serum or Plasma 96 U/L 38 - 126 [facility] Aspartate aminotransferase [Enzymatic activity/volume] in Serum or Plasma 20 U/L 5 - 40 [facility] Alanine aminotransferase [Enzymatic activity/volume] in Seru m or Plasma 14 U/L 7 - 56 [facility] Anion gap 3 in Serum or Plasma 7.0 mmol/L 8.0 - 16.0 L [facility] AGE 84 yrs [facility] al NON-AA GFR 36 mL/min [facility] AFR AMER GFR 44 mL/min [facility] Male GFR In terprentation 20-49 [...] >32 mL/min Normal ID Date Data Source [id number] 07/27/2020 06:51:00 AM EST [facility] ([facility] Name Value Range Interpretation Code Description Data Izabela rce(s) Supporting Document(s) [facility] Laboratory test result [facility] ([facility] Is patient fasting? Y~pt for OR Potassium 5.4 meq/L 3.6-5.0 Above high normal [facility] ([facility] Is patient fasting? Y~pt for OR Sodium 140 meq/L 134-153 [facility] ([facility] Is patient fasting? Y~pt for OR Chloride 109 meq/L 98-107 Above high normal [facility] ([facility] Is patient fasting? Y~pt for OR Co2 24 meq/L 22-30 [facility] ([facility] Is patient fasting? Y~pt for OR Creatinine 1.9 mg/dL 0.7-1.5 Above high normal [facility] ([facility] Is patient fasting? Y~pt for OR Glucose 98 mg/dL 70-99 [facility] ([facility] Is patient fasting? Y~pt for OR BUN 53 mg/dL 7-21 Above high normal [facility] Is patient fasting? Y~pt for OR BUN/Creat 28 8-27 Above high normal [facility] ([facility] Is patient fasting? Y~pt for OR Total Protein 7.1 g/dL 6.3-8.2 [facility] ([facility] Is patient fasting? Y~pt for OR Albumin 3.9 g/dL 3.9-5.0 [facility] ([facility] Is patient fasting? Y~pt for OR Globulin 3.2 GM/DL 2.4-3.2 [facility] ([facility] Is patient fasting? Y~pt for OR A/G Ratio 1.2 0.8-2.0 [facility] ([facility] Is patient fasting? Y~pt for OR Calcium 8.5 mg/dL 8.4-10.2 [facility] ([facility] Is patient fasting? Y~pt for OR Alkaline Phos 96 U/L 38-126 [facility] ([facility] Is patient fasting? Y~pt for OR Total Bili Laboratory test result 0.2-1.3 [facility] ([facility] Is patient fasting? Y~pt for OR SGPT/Alt 14 U/L 7-56 [facility] ([facility] Is patient fasting? Y~pt for OR Anion Gap 7.0 mmol/L 8.0-16.0 Below low normal [facility] ( [facility] Is patient fasting? Y~pt for OR Sgot/Ast 20 U/L 5-40 [facility] ([facility] Is patient fasting? Y~pt for OR Non-Aa GFR 36 mL/min [facility] ([facility] Is patient fasting? Y~pt for OR Age 84 yrs [facility] ([facility] Is patient fasting? Y~pt for OR Afr Amer GFR 44 mL/min [facility] ([facility] Is patient fasting? Y~pt for OR ID Date Data Source [id number] 07/23/2020 11:00:00 AM EST [facility] Name Value Range Interpretation Code Description Data Izabela rce(s) Supporting Document(s) SARS coronavirus 2 RNA Not Detected [facility] This lab was ordered by [facility] and reported by [email or web address]. ID Date Data Source [id number] 07/25/2020 06:14:00 AM EST [facility] Name Value Range Interpretation Code Description Data Izabela rce(s) Supporting Document(s) SARS-CoV-2, JOHANNE Not Detected Not Detected [facility] This nucleic acid amplification test was developed and its performancecharacteristics determined by [employer]. Nucleic acidamplification tests include RT-PCR and TMA. [...] in this assay. ID Date Data Source [id number] 07/23/2020 11:00:00 AM EST [facility] ([facility] Name Value Range Interpretation Code Description Data Izabela rce(s) Supporting Document(s) Coronavirus Covid-19 Laboratory test result [facility] ([facility] This nucleic acid amplification test was developed and its performance characteristics determined by [employer]. Nucleic acid amplification tests include RT-PCR and [...] in this assay. ID Date Data Source [id number] 07/17/2020 02:03:00 PM EST [facility] ([facility] Name Value Range Interpretation Code Description Data Izabela rce(s) Supporting Document(s) Glu 151 mg/dL 70-110 Above high normal [facility] ([facility] CHRONIC KIDNEY DISEASE STAGING [...] 47 mg/dL 8-23 Above high normal [facility] ([facility] CHRONIC KIDNEY DISEASE [...] 2.3 mg/dL 0.7-1.2 Above high normal [facility] ([facility] CHRONIC KIDNEY DISEASE STAGING [...] mL/min Normal BUN/Creatinine Ratio 20.6 CALC [facility] ([facility] CHRONIC KIDNEY DISEASE STAGING PER [...] mL/min Normal Co2 25.3 mmol/L 22.0-29.0 [facility] ([facility] CHRONIC KIDNEY DISEASE STAGING [...] mL/min Normal Na 139 mmol/L 136-145 [facility] CHRONIC KIDNEY DISEASE STAGING PER [...] 5.5 mmol/L 3.5-5.1 Above high normal [facility] ([facility] CHRONIC KIDNEY DISEASE STAGING [...] >32 mL/min Normal CA 9.7 mg/dL 8.6-10.2 [facility] ([facility] CHRONIC KIDNEY DISEASE STAGING PER [...] mL/min Normal CL 103.3 mmol/L 98.0-107.0 MEDBETH ([facility] CHRONIC KIDNEY DISEASE STAGING PER [...] >32 mL/min Normal Anion Gap 15 mmol/L [facility] CHRONIC KIDNEY DISEASE STAGING PER [...] and above >32 mL/min Normal eGFR Non-Afr. Cymro 25 # ARABELLA ([facility] CHRONIC KIDNEY DISEASE STAGING [...] mL/min Normal eGFR 29 # ARABELLA ( [facility] CHRONIC KIDNEY DISEASE STAGING [...] >32 mL/min Normal ID Date Data Source [id number] 07/10/2020 01:53:00 PM EST ARABELLA ([facility] Name Value Range Interpretation Code Description Data Izabela rce(s) Supporting Document(s) Glu 115 mg/dL 70-110 Above high normal ARABELLA ([facility] CHRONIC KIDNEY DISEASE STAGING [...] 59 mg/dL 8-23 Above high normal [facility] ([facility] CHRONIC KIDNEY DISEASE STAGING [...] 2.2 mg/dL 0.7-1.2 Above high normal [facility] ([facility] CHRONIC KIDNEY DISEASE STAGING [...] mL/min Normal BUN/Creatinine Ratio 26.4 CALC [facility] ([facility] CHRONIC KIDNEY [...] mL/min Normal Co2 24.1 mmol/L 22.0-29.0 [facility] ([facility] CHRONIC KIDNEY DISEASE STAGING [...] mL/min Normal CA 9.1 mg/dL 8.6-10.2 [facility] ([facility] CHRONIC KIDNEY DISEASE STAGING [...] 5.8 mmol/L 3.5-5.1 Above high normal [facility] ([facility] CHRONIC KIDNEY DISEASE STAGING [...] mL/min Normal Na 137 mmol/L 136-145 [facility] CHRONIC KIDNEY DISEASE STAGING PER [...] mL/min Normal CL 104.8 mmol/L 98.0-107.0 [facility] ([facility] CHRONIC KIDNEY DISEASE STAGING PER [...] mL/min Normal Anion Gap 14 mmol/L [facility] ([facility] CHRONIC KIDNEY DISEASE STAGING [...] mL/min Normal eGFR 31 # [facility] ( [facility] CKD-EPI eGFR Non-Afr. Cymro 26 # [facility] ([facility] CKD-EPI ID Date Data Source [id number] 07/06/2020 01:55:00 PM EST [facility] ([facility] Name Value Range Interpretation Code Description Data Izabela rce(s) Supporting Document(s) BUN 52 mg/dL 8-23 Above high normal [facility] ([facility] CHRONIC KIDNEY DISEASE STAGING [...] 121 mg/dL 70-110 Above high normal [facility] ([facility] CHRONIC KIDNEY DISEASE [...] 2.5 mg/dL 0.7-1.2 Above high normal [facility] ([facility] CHRONIC KIDNEY DISEASE STAGING [...] mL/min Normal BUN/Creatinine Ratio 21.0 CALC [facility] ([facility] CHRONIC KIDNEY [...] mL/min Normal Co2 23.6 mmol/L 22.0-29.0 [facility] ([facility] CHRONIC KIDNEY DISEASE STAGING [...] mL/min Normal CA 9.2 mg/dL 8.6-10.2 [facility] ([facility] CHRONIC KIDNEY DISEASE STAGING [...] >32 mL/min Normal Na 136 mmol/L 136-145 [facility] ([facility] CHRONIC KIDNEY DISEASE STAGING [...] 6.0 mmol/L 3.5-5.1 Above high normal [facility] ([facility] CHRONIC KIDNEY DISEASE STAGING [...] mL/min Normal CL 106.3 mmol/L 98.0-107.0 [facility] ([facility] CHRONIC KIDNEY DISEASE STAGING [...] mL/min Normal eGFR 26 # ARABELLA ( [facility] CKD-EPI Anion Gap 12 mmol/L ARABELLA ([facility] CHRONIC KIDNEY DISEASE STAGING [...] and above >32 mL/min Normal eGFR Non-Afr. Cymro 23 # ARABELLA ([facility] CKD-EPI ID Date Data Source [id number] 07/02/2020 01:47:00 PM EST ARABELLA ([facility] Name Value Range Interpretation Code Description Data Izabela rce(s) Supporting Document(s) Hemoglobin A1c/Hemoglobin.total in Blood 5.9 % 4.40-6.10 ARABELLA ([facility] NORMAL RANGES Age [...] HCT IS 5% LESS SOURCE FOR DATA: [employer] 1800 OPERATION MANUAL( AUTOMATED BLOOD COUNTS AND [...] >32 mL/min Normal ID Date Data Source [id number] 07/02/2020 01:47:00 PM EST ARABELLA ([facility] Name Value Range Interpretation Code Description Data Izabela rce(s) Supporting Document(s) Creat 2.6 mg/dL 0.7-1.2 Above high normal MEDBETH ([facility] NORMAL RANGES Age [...] HCT IS 5% LESS SOURCE FOR DATA: [employer] 1800 OPERATION MANUAL( AUTOMATED BLOOD COUNTS AND [...] BUN 52 mg/dL 8-23 Above high normal [facility] ([facility] NORMAL RANGES Age WBC [...] HCT IS 5% LESS SOURCE FOR DATA: [employer] 1800 OPERATION MANUAL( AUTOMATED BLOOD COUNTS AND [...] Glu 197 mg/dL 70-110 Above high normal [facility] ([facility] NORMAL RANGES Age [...] HCT IS 5% LESS SOURCE FOR DATA: [employer] 1800 OPERATION MANUAL( AUTOMATED BLOOD COUNTS AND [...] above >32 mL/min Normal BUN/Creatinine Ratio 19.9 [facility] ([facility] NORMAL RANGES Age WBC RBC [...] >32 mL/min Normal Na 137 mmol/L 136-145 [facility] ([facility] NORMAL RANGES Age WBC [...] HCT IS 5% LESS SOURCE FOR DATA: [employer] 1800 OPERATION MANUAL( AUTOMATED BLOOD COUNTS AND [...] K 6.0 mmol/L 3.5-5.1 Above high normal [facility] ([facility] NORMAL RANGES [...] HCT IS 5% LESS SOURCE FOR DATA: [employer] 1800 OPERATION MANUAL( AUTOMATED BLOOD COUNTS AND [...] >32 mL/min Normal CL 105.5 mmol/L 98.0-107.0 [facility] ([facility] NORMAL RANGES Age WBC RBC [...] HCT IS 5% LESS SOURCE FOR DATA: [employer] 1800 OPERATION MANUAL( AUTOMATED BLOOD COUNTS AND [...] TP 6.5 g/dL 6.6-8.7 Below low normal [facility] ( [facility] NORMAL [...] HCT IS 5% LESS SOURCE FOR DATA: [employer] 1800 OPERATION MANUAL( AUTOMATED BLOOD COUNTS AND [...] >32 mL/min Normal CA 9.5 mg/dL 8.6-10.2 [facility] ([facility] NORMAL [...] HCT IS 5% LESS SOURCE FOR DATA: [employer] 1800 OPERATION MANUAL( AUTOMATED BLOOD COUNTS AND [...] >32 mL/min Normal Co2 22.2 mmol/L 22.0-29.0 [facility] ([facility] NORMAL RANGES Age WBC [...] HCT IS 5% LESS SOURCE FOR DATA: [employer] 1800 OPERATION MANUAL( AUTOMATED BLOOD COUNTS AND [...] >32 mL/min Normal A/G Ratio 1.8 CALC [facility] ([facility] NORMAL [...] HCT IS 5% LESS SOURCE FOR DATA: [employer] 1800 OPERATION MANUAL( AUTOMATED BLOOD COUNTS AND [...] >32 mL/min Normal Alb 4.2 g/dL 3.5-5.2 [facility] NORMAL RANGES Age [...] HCT IS 5% LESS SOURCE FOR DATA: [employer] 1800 OPERATION MANUAL( AUTOMATED BLOOD COUNTS AND [...] >32 mL/min Normal Alp 93.5 U/L 40-129 [facility] NORMAL RANGES Age WBC [...] HCT IS 5% LESS SOURCE FOR DATA: [employer] 1800 OPERATION MANUAL( AUTOMATED BLOOD COUNTS AND [...] above >32 mL/min Normal Globulin 2.3 CALC [facility] ([facility] NORMAL RANGES Age [...] HCT IS 5% LESS SOURCE FOR DATA: [employer] DYN 1800 OPERATION MANUAL( AUTOMATED BLOOD COUNTS [...] mL/min Normal Alt (SGPT) 10 U/L 0-41 [facility] ([facility] NORMAL RANGES Age WBC [...] HCT IS 5% LESS SOURCE FOR DATA: [employer] 1800 OPERATION MANUAL( AUTOMATED BLOOD COUNTS AND [...] mL/min Normal Ast (Sgot) 13 U/L 0-40 [facility] NORMAL RANGES Age WBC RBC [...] HCT IS 5% LESS SOURCE FOR DATA: [employer] 1800 OPERATION MANUAL( AUTOMATED BLOOD COUNTS AND [...] HCT IS 5% LESS SOURCE FOR DATA: [employer] 1800 OPERATION MANUAL( AUTOMATED BLOOD COUNTS AND [...] >32 mL/min Normal Tbili 0.20 mg/dL 0.0-1.2 [facility] ([facility] NORMAL RANGES Age WBC [...] HCT IS 5% LESS SOURCE FOR DATA: [employer] 1800 OPERATION MANUAL( AUTOMATED BLOOD COUNTS AND [...] above >32 mL/min Normal eGFR 25 # [facility] ( [facility] [...] HCT IS 5% LESS SOURCE FOR DATA: [employer] 1800 OPERATION MANUAL( AUTOMATED BLOOD COUNTS AND [...] >32 mL/min Normal Anion Gap 15 mmol/L [facility]ELLA ([facility] NORMAL [...] HCT IS 5% LESS SOURCE FOR DATA: [employer] 1800 OPERATION MANUAL( AUTOMATED BLOOD COUNTS AND [...] and above >32 mL/min Normal eGFR Non-Afr. Cymro 22 # [facility] ([facility] NORMAL [...] HCT IS 5% LESS SOURCE FOR DATA: [employer] 1800 OPERATION MANUAL( AUTOMATED BLOOD COUNTS AND [...] >32 mL/min Normal ID Date Data Source [id number] 07/02/2020 01:47:00 PM EST [facility] ([facility] Name Value Range Interpretation Code Description Data Izabela rce(s) Supporting Document(s) WBC 3.9 10E3/uL 4.1-10.9 Below low normal [facility] ([facility] NORMAL RANGES Age [...] HCT IS 5% LESS SOURCE FOR DATA: [employer] 1800 OPERATION MANUAL( AUTOMATED BLOOD COUNTS AND [...] RBC 3.46 10E6/uL 4.20-6.30 Below low normal [facility] ([facility] NORMAL RANGES Age [...] HGB 10.5 g/dL 12.0-18.0 Below low normal [facility] ( [facility] NORMAL [...] HCT IS 5% LESS SOURCE FOR DATA: [employer] 1800 OPERATION MANUAL( AUTOMATED BLOOD COUNTS AND [...] HCT 32.9 % 37.0-51.0 Below low normal [facility] ( [facility] [...] HCT IS 5% LESS SOURCE FOR DATA: [employer] 1800 OPERATION MANUAL( AUTOMATED BLOOD COUNTS AND [...] >32 mL/min Normal MCV 95.1 fL 80.0-97.0 [facility] NORMAL RANGES Age [...] HCT IS 5% LESS SOURCE FOR DATA: [employer] 1800 OPERATION MANUAL( AUTOMATED BLOOD COUNTS AND [...] >32 mL/min Normal MCH 30.3 pg 26.0-32.0 [facility]ELLA ([facility] NORMAL [...] HCT IS 5% LESS SOURCE FOR DATA: [employer] 1800 OPERATION MANUAL( AUTOMATED BLOOD COUNTS AND [...] >32 mL/min Normal MCHC 31.9 g/dL 31.0-36.0 [facility] ([facility] NORMAL [...] HCT IS 5% LESS SOURCE FOR DATA: [employer] 1800 OPERATION MANUAL( AUTOMATED BLOOD COUNTS AND [...] >32 mL/min Normal PLT 313 10E3/uL 140-440 [facility] ([facility] NORMAL RANGES Age WBC [...] HCT IS 5% LESS SOURCE FOR DATA: [employer] 1800 OPERATION MANUAL( AUTOMATED BLOOD COUNTS AND [...] >32 mL/min Normal Lym% 28.9 % 10.0-58.5 [facility] ([facility] NORMAL RANGES [...] HCT IS 5% LESS SOURCE FOR DATA: [employer] 1800 OPERATION MANUAL( AUTOMATED BLOOD COUNTS AND [...] >32 mL/min Normal RDW-CV 13.5 % 11.5-14.5 [facility] ([facility] NORMAL RANGES Age WBC RBC HGB [...] HCT IS 5% LESS SOURCE FOR DATA: [employer] 1800 OPERATION MANUAL( AUTOMATED BLOOD COUNTS AND [...] >32 mL/min Normal Neut% 59.8 % 37.0-92.0 [facility] ([facility] NORMAL RANGES Age [...] HCT IS 5% LESS SOURCE FOR DATA: [employer] DYN 1800 OPERATION MANUAL( AUTOMATED BLOOD COUNTS [...] >32 mL/min Normal MXD% 11.3 % 0.1-24.0 [facility] ([facility] NORMAL RANGES Age [...] HCT IS 5% LESS SOURCE FOR DATA: [employer] 1800 OPERATION MANUAL( AUTOMATED BLOOD COUNTS AND [...] >32 mL/min Normal Lym# 1.1 10E3/uL 0.6-4.1 [facility] ([facility] NORMAL RANGES Age WBC [...] HCT IS 5% LESS SOURCE FOR DATA: [employer] 1800 OPERATION MANUAL( AUTOMATED BLOOD COUNTS AND [...] >32 mL/min Normal MXD# 0.4 10E3/uL 0.0-1.8 ARABELLA ([facility] NORMAL RANGES Age WBC [...] HCT IS 5% LESS SOURCE FOR DATA: [employer] 1800 OPERATION MANUAL( AUTOMATED BLOOD COUNTS AND [...] >32 mL/min Normal Neut# 2.4 % 2.0-7.8 [facility] ([facility] NORMAL RANGES [...] HCT IS 5% LESS SOURCE FOR DATA: [employer] 1800 OPERATION MANUAL( AUTOMATED BLOOD COUNTS AND [...] >32 mL/min Normal MPV 9.2 fL 9.0-13.0 [facility] ([facility] NORMAL [...] HCT IS 5% LESS SOURCE FOR DATA: [employer] 1800 OPERATION MANUAL( AUTOMATED BLOOD COUNTS AND [...] >32 mL/min Normal ID Date Data Source [id number] 06/25/2020 09:50:54 PM [facility] Name Value Range Interpretation Code Description Data Izabela rce(s) Supporting Document(s) Discharge Summary [facility] ZWHASj3gOzFNQkTz06/YICcfZKWyf0ExQFzoOAu6MUydALJhJ7GlMOG4yZ7cLRC3YCuZYsOlDuQnFRKi lbm SyCdlMRoGvZYGkPyqBUjVwBMblMcgdcNQpDI9DaBW9SLInQ34jHRYoINVzJ1EnEFD4JcQ+Ex7RTCYdaS YtTF2STyjN1M9SljrCBa6tWG3YThioDjRMvxbxBL2OT4VeZOaE5I2H9FfGOGSSmRNUuLyPb772qq1zOJ 3fuD9yVJBbhjtwI5K8N54Dyicaw+Kw3Q6SNxAs6ven VmIyF3/7h4q7prdq0w0CQiADqYS9AqMT/qsrf/vBD9fi+N8tbwrh+fLcrTeh4TSZ7NrOfoLljdM7gh5C ++sk6WGtgc5FJ/Ta2fveL+FKFfuh++L883B7P+S1iNm5L58jPM2sBU+Fv2lcfBvRdQ6WJ0vQXwxRYqqx sP7e90pBz7hoPogmPYwsa2yMhZcbyb8vgk8fb0fu8o Bryson/oq1iskckDrBFftcIClihBXorMO/Sjsuvmc92UVsUbWrqcXicEP+TFyun3bgBMSro0AskrxqVHoTmo [file] vp securities+urRB4iwBii7tcQgkqlGyhGwqmhq8HiHL6WaCBxmj/ah807/adUcD+o+ZVGFGrLDnOaatsMGHBPtVj [file] cgMCBSDQogICAgICAvRjIgMjAgMCBSDQogICAgICAvRjMgMjMgMCBSDQogICAgICAvRjQgMjYgMCBSPj 4EMnHhJNUaHG7aczKvvMO8JYM+Vu5SXFQaOM8ZlRPYF3OrhJYrOXxyW8YVQR3HWGU3OS7SrZRkJV1HfK MIZ7GqmIXcJq2bAESts0WgMr8gW3SVYAFBDJNcOKyi WRarXTQmIWy1C0R1KHBgW7NIC998hEJnzQu6Sh6pR2GSRDwZPmLgTYssWNwtSFJdEOm5N8Z7MVFhO0ZR P2OyVpXncjNrI3E+RzZcRHPCZR8LNPGFTTm5F6Z8bRCjI5P6lPhKsWM8JU5XTG9VkBHgiZUad81+PiAN AzPlGOVjZ5SCAQPSMbJuEIoaAEnzDNZsGZl6G6S6RK RlJ8KLH8lcC5e1HQ5+MeXKSwXmTTJkEs0ZCbXcBy5CDeOfMF4iws7SHyvmPTLyPevVHap3J6vqyaf5zT XhIoD6P5E7ByH2hXMjQR3NJ7P9cMLdHDY0HYItzPM+Da9Jh0HpESQgPOi0H3goJTJuLKLwPuArfA34J+ +1ukinzBV9C5w8AWVTkRWsaGyNdgBpR8rZIPQ7s9O1 ZCc/Sl0WJKL2vOy7vYKxJZHcPXp6lT7peQn5ZxKyRU18BVDuPFwowP9iWun3N7Fhz6QbJy2dJj7cgWZl Yu4TPpYdMIR7yiJjNyQEZqZ9sGjdahmxAWM5P9u5qSP0Uy30j1rckrBzv9KpZvM7QGrhLJWaMqZzjsRe QJU8xzDikB7xrrSbMm0ATZLhOVjtdvYmEcVGZo6PXi HdAB78SzqwtW2mnUJ+DQogICAgICAgICAgICAgICAgICAgICAgICAgICAgICAgICAgICAgICAgICAgIC AgICAgICAgICAgICAgICAgICAgICAgICAgICAgICAgICAgICAgICAgICAgICAgICAgICAgICAgDQogIC AgICAgICAgICAgICAgICAgICAgICAgICAgICAgICAg ICAgICAgICAgICAgICAgICAgICAgICAgICAgICAgICAgICAgICAgICAgICAgICAgICAgICAgICAgICAg ICAgICAgDQogICAgICAgICAgICAgICAgICAgICAgICAgICAgICAgICAgICAgICAgICAgICAgICAgICAg ICAgICAgICAgICAgICAgICAgICAgICAgICAgICAgIC AgICAgICAgICAgICAgICAgDQogICAgICAgICAgICAgICAgICAgICAgICAgICAgICAgICAgICAgICAgIC AgICAgICAgICAgICAgICAgICAgICAgICAgICAgICAgICAgICAgICAgICAgICAgICAgICAgICAgICAgDQ ogICAgICAgICAgICAgICAgICAgICAgICAgICAgICAg ICAgICAgICAgICAgICAgICAgICAgICAgICAgICAgICAgICAgICAgICAgICAgICAgICAgICAgICAgICAg ICAgICAgICAgDQogICAgICAgICAgICAgICAgICAgICAgICAgICAgICAgICAgICAgICAgICAgICAgICAg ICAgICAgICAgICAgICAgICAgICAgICAgICAgICAgIC AgICAgICAgICAgICAgICAgICAgDQogICAgICAgICAgICAgICAgICAgICAgICAgICAgICAgICAgICAgIC AgICAgICAgICAgICAgICAgICAgICAgICAgICAgICAgICAgICAgICAgICAgICAgICAgICAgICAgICAgIC AgDQogICAgICAgICAgICAgICAgICAgICAgICAgICAg ICAgICAgICAgICAgICAgICAgICAgICAgICAgICAgICAgICAgICAgICAgICAgICAgICAgICAgICAgICAg ICAgICAgICAgICAgDQogICAgICAgICAgICAgICAgICAgICAgICAgICAgICAgICAgICAgICAgICAgICAg ICAgICAgICAgICAgICAgICAgICAgICAgICAgICAgIC AgICAgICAgICAgICAgICAgICAgICAgDQogICAgICAgICAgICAgICAgICAgICAgICAgICAgICAgICAgIC AgICAgICAgICAgICAgICAgICAgICAgICAgICAgICAgICAgICAgICAgICAgICAgICAgICAgICAgICAgIC LfVTNqOUh5S9gxTZQhNSRdJX6gHJq3Qa9+DQoNCmVu BAD4atByoB1QYE3nn9LfXRciWXGje5FcPRl8II9GEYReJLdaXD3DKTlxhi7SNJVdNCTkpWFUo6bmXfWr FZF7TFHvVetkKD2BUQUcN8mgrrXzKVYzBDESEWuqMHLVFXylMOTKASZwLEVeZaLzQDfhBS1Li7XzpTY4 DQo+Zi7LEC4kl3GbSHfoQMYlDA7ham3HPWaMFkZeS3 VmmhD4XDSlZLSiWk4MHIFqKAMjiFTxOVMlKKIFYnWuM5FtlH09IYSLRu3+DQplbmRvYmoNCjMwIDAgb2 RgNXv7CF3FKBJpHMs1fDWjWMcgL1mqauxbCZF5gV9dhaleJymoPCXsJuEAWU3iqcQhnFxwDV5BZAV7QX YrIh2kJLQeVFCiPmZ6NVMNHR1OMWKbBEIcjUSmMASg OYQWPE5YQHcoZTW3HMDsweKjbHYlQOmxIF8FEMHwldTzRpuiWCSKCCd+Rt9LTB1xk0LdSFaaXPJhXF2n ao6RQEwXOmRiA3Y5iKQsK2F1FJymZr5LVMYmVOCxMxadXEKAPNmiRS3WWQ1oqjH9RN6ArWDfVFMpFDOh nKCuMDa2K02edTHqZWyoSO8BRTT+Jocelyn+Mi5LNCMeOJ VrZHGkIeKyOUGYJjRyY4SfJ4XMo9ThW1NuBX62pNnndzAfFGtbGC6HMC4iKLNxXCYDIG6QbNBtrX5btw OxJSBbVSMZRoJuO28egXLxOVTnGHQ2OXQmHy2ONHCmR1ZspwElaMhfilPlBKIvMPZAZJ2WZKulgfAtqL NbgCipXT46tRlsPH9PUn1TJqVoVA1tnf3DrOUvMd0W SBQkEp4PDYRoAUVdCEGnRQH5GFZsKxWlXPujWWIkMTNtDOR8QODmWNGcWG5YLfCaDNJkAgR6MHxwJZGn OQYdby5UPRPqVBEsKFg3ZaDaKZLkGSHnZPzgUWQnWNBxCOZ9CPIgVNOjZY5CLxZuOWLvOSI9GcNxUQQq UKXgsz6FALLaIMMsQyn9KLBgAKEzCMMsGUedYGHsKO L9Var2QUSfDDCdBW6TFeTaMLZbWMy0VGWsFJPjRQKfod0NFMXzCSJyWQBuEnZuRKHcOALnWSlzCGRhWM Y9ByS1KIZhUBTuOV0IFmAnTWLoXEhnCPyzSPLcYGPsak3WWLWoYAPlTkYkWqHfQNVsYOFtPXioDTOgZY B1TMqeWBYvFALvDH1AQrScABNiGXbuFrJlKKQcKFTw gf9VOWIyNPVlJCI7WzGyVSTbMMRaUNajIMIdNVQ0RQAxCVFxVSKrLI5AJhNlWDLgMHx2YOHoXCNfQGIu xk4OZQAiOGBlFUbuDfFoDELlAYQcGLjyMXFcTEKmPPDdDUJcKGUiDI1XCzQbTIGyUyZpZiEtJYGdOMTv xl1QCYVdYWNxELC6UWLxVTIqIUSlBCpdSZUnYYXwOc T6NOQsIHKxUP0DPkIiBDToRlK3QdcfNHHcXGIzhu7VSZYxRFJgOsCxDGTsNIGmTHJdLWavIHBwMRLiAS t0AUIqBEBrCL8VGbYaSQBbFvJ8GTNfSXSiZAQlou3YDGTxSRNjUsk9TcWcTMJkJXAdDXhfVVOwSBK5PC WbNUEuRBJcPA7BKmBxGFZtExO5ZEauTFMjUOOuyo4R GMGuNJCyBZq4RVIyGATcWWDoWMiwBEZxTJZ7LFJuGBXvESOeWO2DHiZvHNkwERFGCwd1IKdlN6f1KVJz Zu7ZZ3Lrv6YnIhFaICIEWQjlSD5rwoGkXRMmNf3KN4xSHyydIfU6VJB2NgHtDUFoTRT2TGn7YJh9ICve NHRnPeSxFy8xEJOnDceiJfNhKCZtGPY7HyJvPoiaZP l5WWO8SSSgGFZ3CyUqRB0HNx1ZJdM5PBH9rTEkLw1WJcScXIGLGkXeAR5EXDk= ID Date Data Source [id number] 06/20/2020 04:30:28 PM [facility] Value Range Interpretation Code Description Data Izabela rce(s) Supporting Document(s) Glucose [Mass/volume] in Capillary blood by Glucometer 123 mg/dL 70- 140 [facility] ID Date Data Source [id number] 06/20/2020 11:56:29 AM [facility] Value Range Interpretation Code Description Data Izabela rce(s) Supporting Document(s) Glucose [Mass/volume] in Capillary blood by Glucometer 126 mg/dL 70- 140 [facility] ID Date Data Source [id number] 06/20/2020 07:48:40 AM [facility] Value Range Interpretation Code Description Data Izabela rce(s) Supporting Document(s) Glucose [Mass/volume] in Capillary blood by Glucometer 89 mg/dL 70- 140 [facility] ID Date Data Source [id number] 06/20/2020 04:43:53 AM [facility] Value Range Interpretation Code Description Data Izabela rce(s) Supporting Document(s) Bicarbonate [Moles/volume] in Serum 20 mmol/L 22-29 L [facility] Chloride [Moles/volume] in Serum or Plasma 106 mmol/L 98-107 [facility] Creatinine [Mass/volume] in Serum or Plasma 2.84 mg/dL 0.70-1.20 H [facility] Glucose [Mass/volume] in Serum or Plasma 94 mg/dL 70-140 [facility] Potassium [Moles/volume] in Serum or Plasma 4.2 mmol/L 3.4-5.1 [facility] Sodium [Moles/volume] in Serum or Plasma 139 mmol/L 136-145 [facility] Urea nitrogen [Mass/volume] in Serum or Plasma 49 mg/dL 8-23 H [facility] Anion gap 3 in Serum or Plasma 13 mmol/L 8-15 [facility] Osmolality of Serum or Plasma by calculation 301 mosm/kg 275-300 H [facility] Creatinine/Urea nitrogen [Mass Ratio] in Serum or Plasma 17 [facility] Calcium [Mass/volume] in Serum or Plasma 8.0 mg/dL 8.8-10.2 L [facility] Glomerular filtration rate/1.73 sq M pre dicted among non-blacks [Volume Rate/Area] in Serum or Plasma by Creatinine-based formula (MDRD) >6 0 [facility] Glomerular filtration rate/1.73 sq M pre dicted among blacks [Volume Rate/Area] in Serum or Plasma by Creatinine-based formula (MDRD) >60 [facility] ID Date Data Source [id number] 06/20/2020 04:43:53 AM [facility] Name Value Range Interpretation Code Description Data Izabela rce(s) Supporting Document(s) Magnesium [Mass/volume] in Serum or Plasma 1.6 mg/dL 1.6-2.4 [facility] ID Date Data Source [id number] 06/20/2020 04:43:53 AM [facility] Value Range Interpretation Code Description Data Izabela rce(s) Supporting Document(s) Phosphate [Mass/volume] in Serum or Plasma 2.9 mg/dL 2.5-4.5 [facility] ID Date Data Source [id number] 06/20/2020 07:59:30 AM [facility] Value Range Interpretation Code Description Data Izabela rce(s) Supporting Document(s) Leukocytes [#/volume] in Blood by Automated count 8.1 10*3/uL 4-10 [facility] Erythrocytes [#/volume] in Blood by Automated count 3.45 10*6/uL 4.6- 6.1 L [facility] Hemoglobin [Mass/volume] in Blood 10.6 g/dL 13.5-18 L [facility] Hematocrit [Volume Fraction] of Blood by Automated count 31.6 % 4 1-53 L [facility] Erythrocyte mean corpuscular volume [Entitic volume] by Auto mated count 91.6 fL 80-96 [facility] Erythrocyte mean corpuscular hemoglobin [Entitic mass] by Automated count 30.6 pg 27-33 [facility] Erythrocyte mean corpuscular hemoglobin concentration [Mass/volume] by Automated count 33.4 g/dL 32.0-36.0 [facility] Erythrocyte distribution width [Ratio] by Automated count 13.8 % 11.5-14.5 [facility] Platelets [#/volume] in Blood by Automated count 202 10*3/uL 150-400 [facility] ID Date Data Source [id number] 06/19/2020 09:55:21 PM [facility] Name Value Range Interpretation Code Description Data Izabela rce(s) Supporting Document(s) Glucose [Mass/volume] in Capillary blood by Glucometer 138 mg/dL 70- 140 [facility] ID Date Data Source [id number] 06/19/2020 09:13:48 PM [facility] Name Value Range Interpretation Code Description Data Izabela rce(s) Supporting Document(s) Leukocytes [#/volume] in Blood by Automated count 6.9 10*3/uL 4-10 [facility] Erythrocytes [#/volume] in Blood by Automated count 3.18 10*6/uL 4.6- 6.1 L [facility] Hemoglobin [Mass/volume] in Blood 9.9 g/dL 13.5-18 L [facility] Hematocrit [Volume Fraction] of Blood by Automated count 29.4 % 4 1-53 L [facility] Erythrocyte mean corpuscular volume [Entitic volume] by Auto mated count 92.6 fL 80-96 [facility] Erythrocyte mean corpuscular hemoglobin [Entitic mass] by Automated count 31.2 pg 27-33 [facility] Erythrocyte mean corpuscular hemoglobin concentration [Mass/volume] by Automated count 33.7 g/dL 32.0-36.0 [facility] Erythrocyte distribution width [Ratio] by Automated count 14.0 % 11.5-14.5 [facility] Platelets [#/volume] in Blood by Automated count 189 10*3/uL 150-400 [facility] Differential cell count method - Blood [facility] Neutrophils/100 leukocytes in Blood by Automated count 66 % [facility] Lymphocytes/100 leukocytes in Blood by Automated count 16 % [facility] Monocytes/100 leukocytes in Blood by Automated count 14 % [facility] Eosinophils/100 leukocytes in Blood by Automated count 3 % [facility] Basophils/100 leukocytes in Blood by Automated count 1 % [facility] Neutrophils [#/volume] in Blood by Automated count 4.62 10*3/uL 1.8-7 .0 [facility] Lymphocytes [#/volume] in Blood by Automated count 1.08 10*3/uL 1.2-4 .0 L [facility] Monocytes [#/volume] in Blood by Automated count 0.97 10*3/uL 0-0.8 H [facility] Eosinophils [#/volume] in Blood by Automated count 0.19 10*3/uL 0-0.5 [facility] Basophils [#/volume] in Blood by Automated count 0.04 10*3/uL 0-0.2 [facility] Nucleated erythrocytes/100 leukocytes [Ratio] in Blood by Automated count 0 /100{WBCs} 0-0 [facility] ID Date Data Source [id number] 06/19/2020 06:49:27 PM [facility] Name Value Range Interpretation Code Description Data Izabela rce(s) Supporting Document(s) Magnesium [Mass/volume] in Serum or Plasma 1.7 mg/dL 1.6-2.4 [facility] ID Date Data Source [id number] 06/19/2020 06:49:27 PM [facility] Name Value Range Interpretation Code Description Data Izabela rce(s) Supporting Document(s) Bicarbonate [Moles/volume] in Serum 19 mmol/L 22-29 L [facility] Chloride [Moles/volume] in Serum or Plasma 105 mmol/L 98-107 [facility] Creatinine [Mass/volume] in Serum or Plasma 2.86 mg/dL 0.70-1.20 H [facility] Glucose [Mass/volume] in Serum or Plasma 135 mg/dL 70-140 [facility] Potassium [Moles/volume] in Serum or Plasma 4.1 mmol/L 3.4-5.1 [facility] Sodium [Moles/volume] in Serum or Plasma 138 mmol/L 136-145 [facility] Urea nitrogen [Mass/volume] in Serum or Plasma 51 mg/dL 8-23 H [facility] Anion gap 3 in Serum or Plasma 14 mmol/L 8-15 [facility] Osmolality of Serum or Plasma by calculation 301 mosm/kg 275-300 H [facility] Creatinine/Urea nitrogen [Mass Ratio] in Serum or Plasma 18 [facility] Calcium [Mass/volume] in Serum or Plasma 8.1 mg/dL 8.8-10.2 L [facility] Glomerular filtration rate/1.73 sq M pre dicted among non-blacks [Volume Rate/Area] in Serum or Plasma by Creatinine-based formula (MDRD) >6 0 [facility] Glomerular filtration rate/1.73 sq M pre dicted among blacks [Volume Rate/Area] in Serum or Plasma by Creatinine-based formula (MDRD) >60 [facility] ID Date Data Source [id number] 06/19/2020 06:49:27 PM [facility] Value Range Interpretation Code Description Data Izabela rce(s) Supporting Document(s) Phosphate [Mass/volume] in Serum or Plasma 3.0 mg/dL 2.5-4.5 [facility] ID Date Data Source [id number] 06/19/2020 04:56:13 PM [facility] Value Range Interpretation Code Description Data Izabela rce(s) Supporting Document(s) Glucose [Mass/volume] in Capillary blood by Glucometer 125 mg/dL 70- 140 [facility] ID Date Data Source [id number] 06/19/2020 11:34:14 AM [facility] Value Range Interpretation Code Description Data Izabela rce(s) Supporting Document(s) Glucose [Mass/volume] in Capillary blood by Glucometer 97 mg/dL 70- 140 [facility] ID Date Data Source [id number] 06/19/2020 08:54:24 AM [facility] Value Range Interpretation Code Description Data Izabela rce(s) Supporting Document(s) Calcium.ionized [Moles/volume] in Arterial blood 1.07 mmol/L 1.13-1.3 2 [facility] ID Date Data Source [id number] 06/19/2020 07:58:59 AM [facility] Value Range Interpretation Code Description Data Izabela rce(s) Supporting Document(s) Glucose [Mass/volume] in Capillary blood by Glucometer 95 mg/dL 70- 140 [facility] ID Date Data Source [id number] 06/19/2020 04:54:58 AM [facility] Value Range Interpretation Code Description Data Izabela rce(s) Supporting Document(s) Leukocytes [#/volume] in Blood by Automated count 7.3 10*3/uL 4-10 [facility] Erythrocytes [#/volume] in Blood by Automated count 3.48 10*6/uL 4.6- 6.1 L [facility] Hemoglobin [Mass/volume] in Blood 10.7 g/dL 13.5-18 L [facility] Hematocrit [Volume Fraction] of Blood by Automated count 32.4 % 4 1-53 L [facility] Erythrocyte mean corpuscular volume [Entitic volume] by Auto mated count 93.1 fL 80-96 [facility] Erythrocyte mean corpuscular hemoglobin [Entitic mass] by Automated count 30.8 pg 27-33 [facility] Erythrocyte mean corpuscular hemoglobin concentration [Mass/volume] by Automated count 33.1 g/dL 32.0-36.[facility] distribution width [Ratio] by Automated count 14.5 % 11.5-14.5 [facility] Platelets [#/volume] in Blood by Automated count 202 10*3/uL 150-400 [facility] Differential cell count method - Blood [facility] Neutrophils/100 leukocytes in Blood by Automated count 64 % [facility] Lymphocytes/100 leukocytes in Blood by Automated count 17 % [facility] Monocytes/100 leukocytes in Blood by Automated count 14 % [facility] Eosinophils/100 leukocytes in Blood by Automated count 4 % [facility] Basophils/100 leukocytes in Blood by Automated count 1 % [facility] Neutrophils [#/volume] in Blood by Automated count 4.68 10*3/uL 1.8-7 .0 [facility] Lymphocytes [#/volume] in Blood by Automated count 1.27 10*3/uL 1.2-4 .0 [facility] Monocytes [#/volume] in Blood by Automated count 1.04 10*3/uL 0-0.8 H [facility] Eosinophils [#/volume] in Blood by Automated count 0.28 10*3/uL 0-0.5 [facility] Basophils [#/volume] in Blood by Automated count 0.04 10*3/uL 0-0.2 [facility] Nucleated erythrocytes/100 leukocytes [Ratio] in Blood by Automated count 0 /100{WBCs} 0-0 [facility] ID Date Data Source [id number] 06/19/2020 05:13:02 AM [facility] Value Range Interpretation Code Description Data Izabela rce(s) Supporting Document(s) Bicarbonate [Moles/volume] in Serum 18 mmol/L 22-29 L [facility] Chloride [Moles/volume] in Serum or Plasma 105 mmol/L 98-107 [facility] Creatinine [Mass/volume] in Serum or Plasma 3.07 mg/dL 0.70-1.20 H [facility] Glucose [Mass/volume] in Serum or Plasma 142 mg/dL 70-140 H [facility] Potassium [Moles/volume] in Serum or Plasma 3.5 mmol/L 3.4-5.1 [facility] Sodium [Moles/volume] in Serum or Plasma 133 mmol/L 136-145 L [facility] Urea nitrogen [Mass/volume] in Serum or Plasma 48 mg/dL 8-23 H [facility] Anion gap 3 in Serum or Plasma 10 mmol/L 8-15 [facility] Osmolality of Serum or Plasma by calculation 291 mosm/kg 275-300 [facility] Creatinine/Urea nitrogen [Mass Ratio] in Serum or Plasma 16 [facility] Calcium [Mass/volume] in Serum or Plasma 7.7 mg/dL 8.8-10.2 L [facility] Glomerular filtration rate/1.73 sq M pre dicted among non-blacks [Volume Rate/Area] in Serum or Plasma by Creatinine-based formula (MDRD) >6 0 [facility] Glomerular filtration rate/1.73 sq M pre dicted among blacks [Volume Rate/Area] in Serum or Plasma by Creatinine-based formula (MDRD) >60 [facility] ID Date Data Source [id number] 06/19/2020 05:13:02 AM [facility] Value Range Interpretation Code Description Data Izabela rce(s) Supporting Document(s) Magnesium [Mass/volume] in Serum or Plasma 1.8 mg/dL 1.6-2.4 [facility] ID Date Data Source [id number] 06/19/2020 05:13:02 AM [facility] Value Range Interpretation Code Description Data Izabela rce(s) Supporting Document(s) Phosphate [Mass/volume] in Serum or Plasma 2.8 mg/dL 2.5-4.5 [facility] ID Date Data Source [id number] 06/18/2020 09:33:02 PM [facility] Value Range Interpretation Code Description Data Izabela rce(s) Supporting Document(s) Glucose [Mass/volume] in Capillary blood by Glucometer 157 mg/dL 70- 140 H [facility] ID Date Data Source [id number] 06/18/2020 08:09:53 PM [facility] Value Range Interpretation Code Description Data Izabela rce(s) Supporting Document(s) Glucose [Mass/volume] in Capillary blood by Glucometer 128 mg/dL 70- 140 [facility] ID Date Data Source [id number] 06/18/2020 07:20:48 PM [facility] Value Range Interpretation Code Description Data Izabela rce(s) Supporting Document(s) Magnesium [Mass/volume] in Serum or Plasma 1.9 mg/dL 1.6-2.4 [facility] ID Date Data Source [id number] 06/18/2020 07:20:48 PM [facility] Value Range Interpretation Code Description Data Izabela rce(s) Supporting Document(s) Phosphate [Mass/volume] in Serum or Plasma 3.4 mg/dL 2.5-4.5 [facility] ID Date Data Source [id number] 06/18/2020 07:20:48 PM [facility] Value Range Interpretation Code Description Data Izabela rce(s) Supporting Document(s) Bicarbonate [Moles/volume] in Serum 19 mmol/L 22-29 L [facility] Chloride [Moles/volume] in Serum or Plasma 102 mmol/L 98-107 [facility] Creatinine [Mass/volume] in Serum or Plasma 3.44 mg/dL 0.70-1.20 H [facility] Glucose [Mass/volume] in Serum or Plasma 201 mg/dL 70-140 H [facility] Potassium [Moles/volume] in Serum or Plasma 3.7 mmol/L 3.4-5.1 [facility] Sodium [Moles/volume] in Serum or Plasma 131 mmol/L 136-145 L [facility] Urea nitrogen [Mass/volume] in Serum or Plasma 53 mg/dL 8-23 H [facility] Anion gap 3 in Serum or Plasma 10 mmol/L 8-15 [facility] Osmolality of Serum or Plasma by calculation 292 mosm/kg 275-300 [facility] Creatinine/Urea nitrogen [Mass Ratio] in Serum or Plasma 15 [facility] Calcium [Mass/volume] in Serum or Plasma 7.9 mg/dL 8.8-10.2 L [facility] Glomerular filtration rate/1.73 sq M pre dicted among non-blacks [Volume Rate/Area] in Serum or Plasma by Creatinine-based formula (MDRD) >6 0 [facility] Glomerular filtration rate/1.73 sq M pre dicted among blacks [Volume Rate/Area] in Serum or Plasma by Creatinine-based formula (MDRD) >60 [facility] ID Date Data Source [id number] 06/18/2020 04:44:18 PM [facility] Name Value Range Interpretation Code Description Data Izabela rce(s) Supporting Document(s) Glucose [Mass/volume] in Capillary blood by Glucometer 118 mg/dL 70- 140 [facility] ID Date Data Source [id number] 06/18/2020 12:18:59 PM [facility] Name Value Range Interpretation Code Description Data Izabela rce(s) Supporting Document(s) Glucose [Mass/volume] in Capillary blood by Glucometer 110 mg/dL 70- 140 [facility] ID Date Data Source [id number] 06/18/2020 09:24:44 AM [facility] Name Value Range Interpretation Code Description Data Izabela rce(s) Supporting Document(s) Bicarbonate [Moles/volume] in Serum 20 mmol/L 22-29 L [facility] Chloride [Moles/volume] in Serum or Plasma 103 mmol/L 98-107 [facility] Creatinine [Mass/volume] in Serum or Plasma 3.49 mg/dL 0.70-1.20 H [facility] Glucose [Mass/volume] in Serum or Plasma 185 mg/dL 70-140 H [facility] Potassium [Moles/volume] in Serum or Plasma 3.6 mmol/L 3.4-5.1 [facility] Sodium [Moles/volume] in Serum or Plasma 134 mmol/L 136-145 L [facility] Urea nitrogen [Mass/volume] in Serum or Plasma 47 mg/dL 8-23 H [facility] Anion gap 3 in Serum or Plasma 10 mmol/L 8-15 [facility] Osmolality of Serum or Plasma by calculation 294 mosm/kg 275-300 [facility] Creatinine/Urea nitrogen [Mass Ratio] in Serum or Plasma 14 [facility] Calcium [Mass/volume] in Serum or Plasma 7.9 mg/dL 8.8-10.2 L [facility] Glomerular filtration rate/1.73 sq M pre dicted among non-blacks [Volume Rate/Area] in Serum or Plasma by Creatinine-based formula (MDRD) >6 0 [facility] Glomerular filtration rate/1.73 sq M pre dicted among blacks [Volume Rate/Area] in Serum or Plasma by Creatinine-based formula (MDRD) >60 [facility] ID Date Data Source [id number] 06/18/2020 09:24:44 AM [facility] Name Value Range Interpretation Code Description Data Izabela rce(s) Supporting Document(s) Magnesium [Mass/volume] in Serum or Plasma 2.0 mg/dL 1.6-2.4 [facility] ID Date Data Source [id number] 06/18/2020 09:24:44 AM [facility] Name Value Range Interpretation Code Description Data Izabela rce(s) Supporting Document(s) Phosphate [Mass/volume] in Serum or Plasma 3.0 mg/dL 2.5-4.5 [facility] ID Date Data Source [id number] 06/18/2020 07:58:07 AM [facility] Name Value Range Interpretation Code Description Data Izabela rce(s) Supporting Document(s) Glucose [Mass/volume] in Capillary blood by Glucometer 127 mg/dL 70- 140 [facility] ID Date Data Source [id number] 06/18/2020 05:30:36 AM [facility] US RENAL OR AORTA COMPLETE [id number] RE SULTInterpreted by:VALENTIN CaballeroROCEDDAILY INFORMATION: Exam: US Retroperitoneal; Complete; Kidneys and [...] rce(s) Supporting Document(s) ID Date Data Source [id number] 06/18/2020 01:34:15 AM [facility] Name Value Range Interpretation Code Description Data Izabela rce(s) Supporting Document(s) Leukocytes [#/volume] in Blood by Automated count 8.0 10*3/uL 4-10 [facility] Erythrocytes [#/volume] in Blood by Automated count 3.77 10*6/uL 4.6- 6.1 L [facility] Hemoglobin [Mass/volume] in Blood 11.6 g/dL 13.5-18 L [facility] Hematocrit [Volume Fraction] of Blood by Automated count 34.7 % 4 1-53 L [facility] Erythrocyte mean corpuscular volume [Entitic volume] by Auto mated count 92.0 fL 80-96 [facility] Erythrocyte mean corpuscular hemoglobin [Entitic mass] by Automated count 30.7 pg 27-33 [facility] Erythrocyte mean corpuscular hemoglobin concentration [Mass/volume] by Automated count 33.4 g/dL 32.0-36.[facility] E[facility]throcyte distribution width [Ratio] by Automated count 14.2 % 11.5-14.5 [facility] Platelets [#/volume] in Blood by Automated count 207 10*3/uL 150-400 [facility] Differential cell count method - Blood [facility] Neutrophils/100 leukocytes in Blood by Automated count 69 % [facility] Lymphocytes/100 leukocytes in Blood by Automated count 14 % [facility] Monocytes/100 leukocytes in Blood by Automated count 14 % [facility] Eosinophils/100 leukocytes in Blood by Automated count 3 % [facility] Basophils/100 leukocytes in Blood by Automated count 0 % [facility] Neutrophils [#/volume] in Blood by Automated count 5.62 10*3/uL 1.8-7 .0 [facility] Lymphocytes [#/volume] in Blood by Automated count 1.08 10*3/uL 1.2-4 .0 L [facility] Monocytes [#/volume] in Blood by Automated count 1.08 10*3/uL 0-0.8 H [facility] Eosinophils [#/volume] in Blood by Automated count 0.20 10*3/uL 0-0.5 [facility] Basophils [#/volume] in Blood by Automated count 0.02 10*3/uL 0-0.2 [facility] Nucleated erythrocytes/100 leukocytes [Ratio] in Blood by Automated count 0 /100{WBCs} 0-0 [facility] ID Date Data Source [id number] 06/18/2020 02:05:11 AM [facility] Name Value Range Interpretation Code Description Data Izabela rce(s) Supporting Document(s) Bicarbonate [Moles/volume] in Serum 18 mmol/L 22-29 L [facility] Chloride [Moles/volume] in Serum or Plasma 106 mmol/L 98-107 [facility] Creatinine [Mass/volume] in Serum or Plasma 3.69 mg/dL 0.70-1.20 H [facility] Glucose [Mass/volume] in Serum or Plasma 110 mg/dL 70-140 [facility] Potassium [Moles/volume] in Serum or Plasma 4.0 mmol/L 3.4-5.1 [facility] Sodium [Moles/volume] in Serum or Plasma 135 mmol/L 136-145 L [facility] Urea nitrogen [Mass/volume] in Serum or Plasma 53 mg/dL 8-23 H [facility] Anion gap 3 in Serum or Plasma 11 mmol/L 8-15 [facility] Osmolality of Serum or Plasma by calculation 294 mosm/kg 275-300 [facility] Creatinine/Urea nitrogen [Mass Ratio] in Serum or Plasma 14 [facility] Calcium [Mass/volume] in Serum or Plasma 7.8 mg/dL 8.8-10.2 L [facility] Glomerular filtration rate/1.73 sq M pre dicted among non-blacks [Volume Rate/Area] in Serum or Plasma by Creatinine-based formula (MDRD) >6 0 [facility] Glomerular filtration rate/1.73 sq M pre dicted among blacks [Volume Rate/Area] in Serum or Plasma by Creatinine-based formula (MDRD) >60 [facility] ID Date Data Source [id number] 06/18/2020 02:05:11 AM [facility] Value Range Interpretation Code Description Data Izabela rce(s) Supporting Document(s) Phosphate [Mass/volume] in Serum or Plasma 3.8 mg/dL 2.5-4.5 [facility] ID Date Data Source [id number] 06/18/2020 02:05:11 AM [facility] Value Range Interpretation Code Description Data Izabela rce(s) Supporting Document(s) Magnesium [Mass/volume] in Serum or Plasma 2.1 mg/dL 1.6-2.4 [facility] ID Date Data Source [id number] 06/17/2020 09:31:47 PM [facility] Value Range Interpretation Code Description Data Izabela rce(s) Supporting Document(s) Glucose [Mass/volume] in Capillary blood by Glucometer 111 mg/dL 70- 140 [facility] ID Date Data Source [id number] 06/17/2020 05:34:58 PM [facility] Value Range Interpretation Code Description Data Izabela rce(s) Supporting Document(s) Magnesium [Mass/volume] in Serum or Plasma 2.4 mg/dL 1.6-2.4 [facility] ID Date Data Source [id number] 06/17/2020 05:34:58 PM [facility] Value Range Interpretation Code Description Data Izabela rce(s) Supporting Document(s) Bicarbonate [Moles/volume] in Serum 21 mmol/L 22-29 L [facility] Chloride [Moles/volume] in Serum or Plasma 105 mmol/L 98-107 [facility] Creatinine [Mass/volume] in Serum or Plasma 4.18 mg/dL 0.70-1.20 H [facility] Glucose [Mass/volume] in Serum or Plasma 111 mg/dL 70-140 [facility] Potassium [Moles/volume] in Serum or Plasma 4.5 mmol/L 3.4-5.1 [facility] Sodium [Moles/volume] in Serum or Plasma 137 mmol/L 136-145 [facility] Urea nitrogen [Mass/volume] in Serum or Plasma 57 mg/dL 8-23 H [facility] Anion gap 3 in Serum or Plasma 11 mmol/L 8-15 [facility] Osmolality of Serum or Plasma by calculation 300 mosm/kg 275-300 [facility] Creatinine/Urea nitrogen [Mass Ratio] in Serum or Plasma 14 [facility] Calcium [Mass/volume] in Serum or Plasma 7.9 mg/dL 8.8-10.2 L [facility] Glomerular filtration rate/1.73 sq M pre dicted among non-blacks [Volume Rate/Area] in Serum or Plasma by Creatinine-based formula (MDRD) >6 0 [facility] Glomerular filtration rate/1.73 sq M pre dicted among blacks [Volume Rate/Area] in Serum or Plasma by Creatinine-based formula (MDRD) >60 [facility] ID Date Data Source [id number] 06/17/2020 05:34:58 PM [facility] Name Value Range Interpretation Code Description Data Izabela rce(s) Supporting Document(s) Phosphate [Mass/volume] in Serum or Plasma 4.1 mg/dL 2.5-4.5 [facility] ID Date Data Source [id number] 06/17/2020 04:53:19 PM [facility] Value Range Interpretation Code Description Data Izabela rce(s) Supporting Document(s) Glucose [Mass/volume] in Capillary blood by Glucometer 105 mg/dL 70- 140 [facility] ID Date Data Source [id number] 06/17/2020 01:12:43 PM [facility] Name Value Range Interpretation Code Description Data Izabela rce(s) Supporting Document(s) [facility] PUGKTl2fMhMFEwPo18/XETvdQGRgx1MkQRgrKQk0SZlgAKXqC8DvGUD3qN7mAZQ0LNlDWfQqPsDhRCFo [facility] [file] ZIHAYRIPFVK+7WDcwRcsXi+g1mhBIRPLL2tYGM794i XXc2kMsyu/ymQC54yn+2z8McTRgU5IFs/mOzfdXWj+AVufOrgt1iy26dsYHoh533eJ+Ewjdrl+iTLq7F OMB2bOBcYYxNAE0f5RE7xoJk9HflcvfveMp4m77bf8Rt0vCLv5AXWjnTX9bqzIcafk1d9M59Fi4nNFzt roDFGWI9AQ35XhJ4YT9o+9FGfnOaBshfkulspREicN aXbnKIznSg8+vy9EUqA6NFiAtSuK7lvv1gyT48+Now+W05n+2+kE7MaRiDTyiy1wRWu7Z5ZrTMHDhaN+ Fb356AascWb67jycMxhY6c7nDNboXg/8PJtXuEFgD22POMGPCZHveblIUyE1YNLj/IoYcUZMCiUZDlB+ PR4n4+395yBIeNu00smoyPVBoDBxKNDIvAV3xnf/kR jViYX6UXfAos/Ar9GZTPewkkLodevYmuu6rf6/XQRBZCCvEXNc4LuebybGq0xvOvDfhXkdnsskXZ5oXj G7JUyaH4ZDenExRZGPejeF7TskblXx5IEoB5u6kp+hmUEAPR+jzZpZAkDVYspHjT7LRJlkc52gu8c6FX V4QCXFGDAcuajSQX4IZRfQ6iqrTQ+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 [file] [id number]== ID Date Data Source [id number] 06/17/2020 11:42:47 AM [facility] Value Range Interpretation Code Description Data Izabela rce(s) Supporting Document(s) Glucose [Mass/volume] in Capillary blood by Glucometer 82 mg/dL 70- 140 [facility] ID Date Data Source [id number] 06/17/2020 07:46:26 AM [facility] Value Range Interpretation Code Description Data Izabela rce(s) Supporting Document(s) Glucose [Mass/volume] in Capillary blood by Glucometer 119 mg/dL 70- 140 [facility] ID Date Data Source [id number] 06/17/2020 08:02:55 AM [facility] Value Range Interpretation Code Description Data Izabela rce(s) Supporting Document(s) Bicarbonate [Moles/volume] in Serum 18 mmol/L 22-29 L [facility] Chloride [Moles/volume] in Serum or Plasma 105 mmol/L 98-107 [facility] Creatinine [Mass/volume] in Serum or Plasma 4.02 mg/dL 0.70-1.20 H [facility] Glucose [Mass/volume] in Serum or Plasma 112 mg/dL 70-140 [facility] Potassium [Moles/volume] in Serum or Plasma 4.0 mmol/L 3.4-5.1 [facility] Sodium [Moles/volume] in Serum or Plasma 136 mmol/L 136-145 [facility] Urea nitrogen [Mass/volume] in Serum or Plasma 54 mg/dL 8-23 H [facility] Anion gap 3 in Serum or Plasma 12 mmol/L 8-15 [facility] Osmolality of Serum or Plasma by calculation 297 mosm/kg 275-300 [facility] Creatinine/Urea nitrogen [Mass Ratio] in Serum or Plasma 13 [facility] Calcium [Mass/volume] in Serum or Plasma 7.8 mg/dL 8.8-10.2 L [facility] Glomerular filtration rate/1.73 sq M pre dicted among non-blacks [Volume Rate/Area] in Serum or Plasma by Creatinine-based formula (MDRD) >6 0 [facility] Glomerular filtration rate/1.73 sq M pre dicted among blacks [Volume Rate/Area] in Serum or Plasma by Creatinine-based formula (MDRD) >60 [facility] ID Date Data Source [id number] 06/17/2020 08:02:55 AM [facility] Name Value Range Interpretation Code Description Data Izabela rce(s) Supporting Document(s) Magnesium [Mass/volume] in Serum or Plasma 2.9 mg/dL 1.6-2.4 H [facility] ID Date Data Source [id number] 06/17/2020 08:02:55 AM [facility] Name Value Range Interpretation Code Description Data Izabela rce(s) Supporting Document(s) Phosphate [Mass/volume] in Serum or Plasma 3.8 mg/dL 2.5-4.5 [facility] ID Date Data Source [id number] 06/17/2020 01:14:12 AM [facility] Name Value Range Interpretation Code Description Data Izabela rce(s) Supporting Document(s) Leukocytes [#/volume] in Blood by Automated count 8.1 10*3/uL 4-10 [facility] Erythrocytes [#/volume] in Blood by Automated count 3.91 10*6/uL 4.6- 6.1 L [facility] Hemoglobin [Mass/volume] in Blood 12.1 g/dL 13.5-18 L [facility] Hematocrit [Volume Fraction] of Blood by Automated count 36.9 % 4 1-53 L [facility] Erythrocyte mean corpuscular volume [Entitic volume] by Auto mated count 94.4 fL 80-96 [facility] Erythrocyte mean corpuscular hemoglobin [Entitic mass] by Automated count 31.0 pg 27-33 [facility] Erythrocyte mean corpuscular hemoglobin concentration [Mass/volume] by Autom[facility] 32.8 [facility] distribution width [Ratio] by Automated count 14.6 % 11.5-14.5 H [facility] Platelets [#/volume] in Blood by Automated count 201 10*3/uL 150-400 [facility] Differential cell count method - Blood [facility] Neutrophils/100 leukocytes in Blood by Automated count 66 % [facility] Lymphocytes/100 leukocytes in Blood by Automated count 17 % [facility] Monocytes/100 leukocytes in Blood by Automated count 14 % [facility] Eosinophils/100 leukocytes in Blood by Automated count 3 % [facility] Basophils/100 leukocytes in Blood by Automated count 0 % [facility] Neutrophils [#/volume] in Blood by Automated count 5.38 10*3/uL 1.8-7 .0 [facility] Lymphocytes [#/volume] in Blood by Automated count 1.39 10*3/uL 1.2-4 .0 [facility] Monocytes [#/volume] in Blood by Automated count 1.11 10*3/uL 0-0.8 H [facility] Eosinophils [#/volume] in Blood by Automated count 0.21 10*3/uL 0-0.5 [facility] Basophils [#/volume] in Blood by Automated count 0.03 10*3/uL 0-0.2 [facility] Nucleated erythrocytes/100 leukocytes [Ratio] in Blood by Automated count 0 /100{WBCs} 0-0 [facility] ID Date Data Source [id number] 06/17/2020 01:44:49 AM [facility] Name Value Range Interpretation Code Description Data Izabela rce(s) Supporting Document(s) Phosphate [Mass/volume] in Serum or Plasma 4.0 mg/dL 2.5-4.5 [facility] ID Date Data Source [id number] 06/17/2020 01:44:49 AM [facility] Name Value Range Interpretation Code Description Data Izabela rce(s) Supporting Document(s) Bicarbonate [Moles/volume] in Serum 17 mmol/L 22-29 L [facility] Chloride [Moles/volume] in Serum or Plasma 106 mmol/L 98-107 [facility] Creatinine [Mass/volume] in Serum or Plasma 4.71 mg/dL 0.70-1.20 H [facility] Glucose [Mass/volume] in Serum or Plasma 117 mg/dL 70-140 [facility] Potassium [Moles/volume] in Serum or Plasma 4.5 mmol/L 3.4-5.1 [facility] Sodium [Moles/volume] in Serum or Plasma 137 mmol/L 136-145 [facility] Urea nitrogen [Mass/volume] in Serum or Plasma 57 mg/dL 8-23 H [facility] Anion gap 3 in Serum or Plasma 14 mmol/L 8-15 [facility] Osmolality of Serum or Plasma by calculation 301 mosm/kg 275-300 H [facility] Creatinine/Urea nitrogen [Mass Ratio] in Serum or Plasma 12 [facility] Calcium [Mass/volume] in Serum or Plasma 7.6 mg/dL 8.8-10.2 [facility] Glomerular filtration rate/1.73 sq M pre dicted among non-blacks [Volume Rate/Area] in Serum or Plasma by Creatinine-based formula (MDRD) >6 0 [facility] Glomerular filtration rate/1.73 sq M pre dicted among blacks [Volume Rate/Area] in Serum or Plasma by Creatinine-based formula (MDRD) >60 [facility] ID Date Data Source [id number] 06/17/2020 01:44:49 AM [facility] Value Range Interpretation Code Description Data Izabela rce(s) Supporting Document(s) Magnesium [Mass/volume] in Serum or Plasma 1.4 mg/dL 1.6-2.4 [facility] ID Date Data Source [id number] 06/16/2020 09:12:35 PM [facility] Value Range Interpretation Code Description Data Izabela rce(s) Supporting Document(s) Glucose [Mass/volume] in Capillary blood by Glucometer 116 mg/dL 70- 140 [facility] ID Date Data Source [id number] 06/16/2020 07:40:51 PM EST [facility] Name Value Range Interpretation Code Description Data Izabeal rce(s) Supporting Document(s) Bicarbonate [Moles/volume] in Serum 21 mmol/L 22-29 L [facility] Chloride [Moles/volume] in Serum or Plasma 105 mmol/L 98-107 [facility] Creatinine [Mass/volume] in Serum or Plasma 4.89 mg/dL 0.70-1.20 H [facility] Glucose [Mass/volume] in Serum or Plasma 125 mg/dL 70-140 [facility] Potassium [Moles/volume] in Serum or Plasma 4.7 mmol/L 3.4-5.1 [facility] Sodium [Moles/volume] in Serum or Plasma 139 mmol/L 136-145 [facility] Urea nitrogen [Mass/volume] in Serum or Plasma 61 mg/dL 8-23 H [facility] Anion gap 3 in Serum or Plasma 13 mmol/L 8-15 [facility] Osmolality of Serum or Plasma by calculation 307 mosm/kg 275-300 [facility] Creatinine/Urea nitrogen [Mass Ratio] in Serum or Plasma 13 [facility] Calcium [Mass/volume] in Serum or Plasma 8.0 mg/dL 8.8-10.2 L [facility] Glomerular filtration rate/1.73 sq M pre dicted among non-blacks [Volume Rate/Area] in Serum or Plasma by Creatinine-based formula (MDRD) >6 0 [facility] Glomerular filtration rate/1.73 sq M pre dicted among blacks [Volume Rate/Area] in Serum or Plasma by Creatinine-based formula (MDRD) >60 [facility] ID Date Data Source [id number] 06/16/2020 07:40:51 PM [facility] Value Range Interpretation Code Description Data Izabela rce(s) Supporting Document(s) Magnesium [Mass/volume] in Serum or Plasma 1.5 mg/dL 1.6-2.4 [facility] ID Date Data Source [id number] 06/16/2020 07:40:51 PM [facility] Value Range Interpretation Code Description Data Izabela rce(s) Supporting Document(s) Phosphate [Mass/volume] in Serum or Plasma 3.8 mg/dL 2.5-4.5 [facility] ID Date Data Source [id number] 06/16/2020 04:37:53 PM [facility] Value Range Interpretation Code Description Data Izabela rce(s) Supporting Document(s) Glucose [Mass/volume] in Capillary blood by Glucometer 105 mg/dL 70- 140 [facility] ID Date Data Source [id number] 06/16/2020 12:53:49 PM [facility] Name Value Range Interpretation Code Description Data Izabela rce(s) Supporting Document(s) Glucose [Mass/volume] in Capillary blood by Glucometer 157 mg/dL 70- 140 H [facility] ID Date Data Source [id number] 06/16/2020 01:07:16 PM [facility] Name Value Range Interpretation Code Description Data Izabela rce(s) Supporting Document(s) Magnesium [Mass/volume] in Serum or Plasma 1.6 mg/dL 1.6-2.4 [facility] ID Date Data Source [id number] 06/16/2020 01:07:16 PM [facility] Value Range Interpretation Code Description Data Izabela rce(s) Supporting Document(s) Phosphate [Mass/volume] in Serum or Plasma 4.0 mg/dL 2.5-4.5 [facility] ID Date Data Source [id number] 06/16/2020 01:07:16 PM [facility] Name Value Range Interpretation Code Description Data Izabela rce(s) Supporting Document(s) Bicarbonate [Moles/volume] in Serum 20 mmol/L 22-29 L [facility] Chloride [Moles/volume] in Serum or Plasma 109 mmol/L 98-107 [facility] Creatinine [Mass/volume] in Serum or Plasma 5.65 mg/dL 0.70-1.20 H [facility] Glucose [Mass/volume] in Serum or Plasma 152 mg/dL 70-140 [facility] Potassium [Moles/volume] in Serum or Plasma 4.5 mmol/L 3.4-5.1 [facility] Sodium [Moles/volume] in Serum or Plasma 143 mmol/L 136-145 [facility] Urea nitrogen [Mass/volume] in Serum or Plasma 64 mg/dL 8-23 H [facility] Anion gap 3 in Serum or Plasma 14 mmol/L 8-15 [facility] Osmolality of Serum or Plasma by calculation 317 mosm/kg 275-300 [facility] Creatinine/Urea nitrogen [Mass Ratio] in Serum or Plasma 11 [facility] Calcium [Mass/volume] in Serum or Plasma 8.1 mg/dL 8.8-10.2 L [facility] Glomerular filtration rate/1.73 sq M pre dicted among non-blacks [Volume Rate/Area] in Serum or Plasma by Creatinine-based formula (MDRD) >6 0 [facility] Glomerular filtration rate/1.73 sq M pre dicted among blacks [Volume Rate/Area] in Serum or Plasma by Creatinine-based formula (MDRD) >60 [facility] ID Date Data Source [id number] 06/16/2020 07:41:26 AM [facility] Name Value Range Interpretation Code Description Data Izabela rce(s) Supporting Document(s) Glucose [Mass/volume] in Capillary blood by Glucometer 121 mg/dL 70- 140 [facility] ID Date Data Source [id number] 06/16/2020 06:42:14 AM [facility] Name Value Range Interpretation Code Description Data Izabela rce(s) Supporting Document(s) Leukocytes [#/volume] in Blood by Automated count 6.0 10*3/uL 4-10 [facility] Erythrocytes [#/volume] in Blood by Automated count 3.96 10*6/uL 4.6- 6.1 L [facility] Hemoglobin [Mass/volume] in Blood 12.2 g/dL 13.5-18 L [facility] Hematocrit [Volume Fraction] of Blood by Automated count 37.0 % 4 1-53 L [facility] Erythrocyte mean corpuscular volume [Entitic volume] by Auto mated count 93.5 fL 80-96 [facility] Erythrocyte mean corpuscular hemoglobin [Entitic mass] by Automated count 30.8 pg 27-33 [facility] Erythrocyte mean corpuscular hemoglobin concentration [Mass/volume] by Automated count 33.0 g/dL 32.0-36.[facility] E[facility]throcyte distribution width [Ratio] by Automated count 14.2 % 11.5-14.5 [facility] Platelets [#/volume] in Blood by Automated count 217 10*3/uL 150-400 [facility] Differential cell count method - Blood [facility] Neutrophils/100 leukocytes in Blood by Automated count 59 % [facility] Lymphocytes/100 leukocytes in Blood by Automated count 21 % [facility] Monocytes/100 leukocytes in Blood by Automated count 12 % [facility] Eosinophils/100 leukocytes in Blood by Automated count 7 % [facility] Basophils/100 leukocytes in Blood by Automated count 1 % [facility] Neutrophils [#/volume] in Blood by Automated count 3.59 10*3/uL 1.8-7 .0 [facility] Lymphocytes [#/volume] in Blood by Automated count 1.25 10*3/uL 1.2-4 .0 [facility] Monocytes [#/volume] in Blood by Automated count 0.70 10*3/uL 0-0.8 [facility] Eosinophils [#/volume] in Blood by Automated count 0.42 10*3/uL 0-0.5 [facility] Basophils [#/volume] in Blood by Automated count 0.03 10*3/uL 0-0.2 [facility] Nucleated erythrocytes/100 leukocytes [Ratio] in Blood by Automated count 0 /100{WBCs} 0-0 [facility] ID Date Data Source [id number] 06/16/2020 07:53:27 AM [facility] Name Value Range Interpretation Code Description Data Izabela rce(s) Supporting Document(s) Bicarbonate [Moles/volume] in Serum 18 mmol/L 22-29 L [facility] Chloride [Moles/volume] in Serum or Plasma 108 mmol/L 98-107 H [facility] Creatinine [Mass/volume] in Serum or Plasma 5.64 mg/dL 0.70-1.20 H [facility] Glucose [Mass/volume] in Serum or Plasma 124 mg/dL 70-140 [facility] Potassium [Moles/volume] in Serum or Plasma 4.3 mmol/L 3.4-5.1 [facility] Sodium [Moles/volume] in Serum or Plasma 141 mmol/L 136-145 [facility] Urea nitrogen [Mass/volume] in Serum or Plasma 66 mg/dL 8-23 H [facility] Anion gap 3 in Serum or Plasma 14 mmol/L 8-15 [facility] Osmolality of Serum or Plasma by calculation 312 mosm/kg 275-300 H [facility] Creatinine/Urea nitrogen [Mass Ratio] in Serum or Plasma 12 [facility] Calcium [Mass/volume] in Serum or Plasma 7.8 mg/dL 8.8-10.2 L [facility] Glomerular filtration rate/1.73 sq M pre dicted among non-blacks [Volume Rate/Area] in Serum or Plasma by Creatinine-based formula (MDRD) >6 0 [facility] Glomerular filtration rate/1.73 sq M pre dicted among blacks [Volume Rate/Area] in Serum or Plasma by Creatinine-based formula (MDRD) >60 [facility] ID Date Data Source [id number] 06/16/2020 07:53:27 AM [facility] Name Value Range Interpretation Code Description Data Izabela rce(s) Supporting Document(s) Magnesium [Mass/volume] in Serum or Plasma 1.8 mg/dL 1.6-2.4 [facility] ID Date Data Source [id number] 06/16/2020 07:53:27 AM [facility] Name Value Range Interpretation Code Description Data Izabela rce(s) Supporting Document(s) Phosphate [Mass/volume] in Serum or Plasma 4.4 mg/dL 2.5-4.5 [facility] ID Date Data Source [id number] 06/16/2020 01:07:13 AM [facility] Name Value Range Interpretation Code Description Data Izabela rce(s) Supporting Document(s) Bicarbonate [Moles/volume] in Serum 21 mmol/L 22-29 L [facility] Chloride [Moles/volume] in Serum or Plasma 109 mmol/L 98-107 H [facility] Creatinine [Mass/volume] in Serum or Plasma 6.50 mg/dL 0.70-1.20 H [facility] Glucose [Mass/volume] in Serum or Plasma 122 mg/dL 70-140 [facility] Potassium [Moles/volume] in Serum or Plasma 5.0 mmol/L 3.4-5.1 [facility] Sodium [Moles/volume] in Serum or Plasma 142 mmol/L 136-145 [facility] Urea nitrogen [Mass/volume] in Serum or Plasma 74 mg/dL 8-23 H [facility] Anion gap 3 in Serum or Plasma 12 mmol/L 8-15 [facility] Osmolality of Serum or Plasma by calculation 317 mosm/kg 275-300 H [facility] Creatinine/Urea nitrogen [Mass Ratio] in Serum or Plasma 11 [facility] Calcium [Mass/volume] in Serum or Plasma 7.8 mg/dL 8.8-10.2 L [facility] Glomerular filtration rate/1.73 sq M pre dicted among non-blacks [Volume Rate/Area] in Serum or Plasma by Creatinine-based formula (MDRD) >6 0 [facility] Glomerular filtration rate/1.73 sq M pre dicted among blacks [Volume Rate/Area] in Serum or Plasma by Creatinine-based formula (MDRD) >60 [facility] ID Date Data Source [id number] 06/16/2020 01:07:13 AM [facility] Value Range Interpretation Code Description Data Izabela rce(s) Supporting Document(s) Magnesium [Mass/volume] in Serum or Plasma 1.5 mg/dL 1.6-2.4 [facility] ID Date Data Source [id number] 06/16/2020 01:07:13 AM [facility] Value Range Interpretation Code Description Data Izabela rce(s) Supporting Document(s) Phosphate [Mass/volume] in Serum or Plasma 5.2 mg/dL 2.5-4.5 H [facility] ID Date Data Source [id number] 06/15/2020 09:02:35 PM [facility] Value Range Interpretation Code Description Data Izabela rce(s) Supporting Document(s) Glucose [Mass/volume] in Capillary blood by Glucometer 119 mg/dL 70- 140 [facility] ID Date Data Source [id number] 06/15/2020 07:23:22 PM [facility] Value Range Interpretation Code Description Data Izabela rce(s) Supporting Document(s) Magnesium [Mass/volume] in Serum or Plasma 1.7 mg/dL 1.6-2.4 [facility] ID Date Data Source [id number] 06/15/2020 07:23:22 PM [facility] Value Range Interpretation Code Description Data Izabela rce(s) Supporting Document(s) Phosphate [Mass/volume] in Serum or Plasma 5.6 mg/dL 2.5-4.5 H [facility] ID Date Data Source [id number] 06/15/2020 07:23:22 PM [facility] Value Range Interpretation Code Description Data Izabela rce(s) Supporting Document(s) Bicarbonate [Moles/volume] in Serum 20 mmol/L 22-29 L [facility] Chloride [Moles/volume] in Serum or Plasma 106 mmol/L 98-107 [facility] Creatinine [Mass/volume] in Serum or Plasma 6.95 mg/dL 0.70-1.20 H [facility] Glucose [Mass/volume] in Serum or Plasma 121 mg/dL 70-140 [facility] Potassium [Moles/volume] in Serum or Plasma 4.8 mmol/L 3.4-5.1 [facility] Sodium [Moles/volume] in Serum or Plasma 144 mmol/L 136-145 [facility] Urea nitrogen [Mass/volume] in Serum or Plasma 80 mg/dL 8-23 H [facility] Anion gap 3 in Serum or Plasma 18 mmol/L 8-15 H [facility] Osmolality of Serum or Plasma by calculation 323 mosm/kg 275-300 H [facility] Creatinine/Urea nitrogen [Mass Ratio] in Serum or Plasma 12 [facility] Calcium [Mass/volume] in Serum or Plasma 8.0 mg/dL 8.8-10.2 L [facility] Glomerular filtration rate/1.73 sq M pre dicted among non-blacks [Volume Rate/Area] in Serum or Plasma by Creatinine-based formula (MDRD) >6 0 [facility] Glomerular filtration rate/1.73 sq M pre dicted among blacks [Volume Rate/Area] in Serum or Plasma by Creatinine-based formula (MDRD) >60 [facility] ID Date Data Source [id number] 06/15/2020 04:48:16 PM [facility] Name Value Range Interpretation Code Description Data Izabela rce(s) Supporting Document(s) Glucose [Mass/volume] in Capillary blood by Glucometer 122 mg/dL 70- 140 [facility] ID Date Data Source [id number] 06/15/2020 03:32:28 PM [facility] Name Value Range Interpretation Code Description Data Izabela rce(s) Supporting Document(s) [facility] OPNKNw2sWxNPRgYo20/ORQpsYJUbk7RoNOtaOHv2EUluJUZoU1XiRFG0kC8uWTS0MEeWLxHbUqLfZFRg lb NqWskLTfWdUPUhQkvFDgPfSWksBkotdNLyFD4YaAF9IRSiK37tMXZtFGHhI1CtING3XnH+Uz2XYTTjkS MeUN7PYphG7U2wjzo2Jd2pwG6DatKdRshuRutOr4VbQA2LplYaFFEp+kGxVo+cSmp4FV3/ffcpacarX8 Poavj9SZhqJjHkIZpuJmniAPyu79Sj1VeYYpv/61+D SImbO/GMv2aFI7jwI3y7xu3sRkldmLY1jkAQQE+/lWvYj66ueSCMuUKANPOj96ukwXIGv/Di+mo2UB1L Qd8Xf2a8csaPq5YgVbvQx8JEBZxC/mLOL8T3UjkglC+N6UrHd+Wa8vv+DTKQgPle5gHqtUGdBqi3MlFo 7D667ppSli4CdVsMfjU/7jKlKmgbgPpXOYrRnn9IuN 72WN7YVyKkO21XimaOdhutyTv79U24qDGaUI+Pr3p2NBwi0Kg898+UJmuLc7LGTpNvkFpCsBuxvCe+zF G97UNzSsVl9AU72I/PZaPkx8M4NwAsx0K6YJx7QnU1/Fo0lWAsb9Ar4D4gVJ6OWXw/YOrJGMy7nz8rXk iyVI3lyy3yME2287rdmR95kp+nursing home/YUuruYDCPFxYN [file] AgICAgICAgICAgICAgICAgICAgICAgICAgICAgICAgICAgICAgICAgICAgICAgICAgICAgICAgICAgIC VcRLMwAMOyJCVqYIAhARVeHCOqRWZjJJSaACCqKX2J ICAgICAgICAgICAgICAgICAgICAgICAgICAgICAgICAgICAgICAgICAgICAgICAgICAgICAgICAgICAg MSQxZLYiCCTkTSOxASDbPJBbPDAkJESkRGGmRBYzAFMwMKLoWYCqZW8SLVBrFNRzPBEkNLTlJCOhUBMv ICAgICAgICAgICAgICAgICAgICAgICAgICAgICAgIC OeIZPjIXZwIDRhVYXaUNQkABKqEITcJEEgOYTuNKDgMSQuMWXwLLYwAVBaFBVtIUOtOE8MVSHyULTiFJ AgICAgICAgICAgICAgICAgICAgICAgICAgICAgICAgICAgICAgICAgICAgICAgICAgICAgICAgICAgIC AgICAgICAgICAgICAgICAgICAgICAgICAgICAgICAg MR2WZNHeJSBoONApGHRaVNUvFSMkJAUlCBVlUPZpBOXqPRKeDSPsUVAcNGKcZEKfRCCiENNvINRxHNHg AETjOOSkFAWkBJWwUSQyFDKoKBSjWHHwGRLzOTMoCSQnOXZeXEPyDHOoVV6HVYOkOTXlZUXcFALjSXCg ICAgICAgICAgICAgICAgICAgICAgICAgICAgICAgIC TdVWZxYOKyTXXzASLmHAKnXBYgKOTmTZAhKUHsXIMxRWRzQLGdONNsEDGkFSGbFIJmEQOfAR0WEKKwTH AgICAgICAgICAgICAgICAgICAgICAgICAgICAgICAgICAgICAgICAgICAgICAgICAgICAgICAgICAgIC AgICAgICAgICAgICAgICAgICAgICAgICAgICAgICAg LWNtPH3WFGOyATJhMJFnPTOvTUCwOVIhJWAwQUDcHOLzUEVyAPDhVDInDECkKXZzVOIaRUBcEDQeKDPh TXJoMNIvMPAhLKGxNSTmTDPgHUGmNJBuIDMqGQByZSYpDFJhFSNsAXDiIBCtZV5DTLUsEVVqWJWgPYVl ICAgICAgICAgICAgICAgICAgICAgICAgICAgICAgIC RmOQMsWMVqRTAjPOIzPITxUEGyZXTcWVIqBZIrSZUbABGzSKYxFRYqGNLiWJLdYCOrQXSrOTYqPN9HUX AgICAgICAgICAgICAgICAgICAgICAgICAgICAgICAgICAgICAgICAgICAgICAgICAgICAgICAgICAgIC AgICAgICAgICAgICAgICAgICAgICAgICAgICAgICAg IBPrEPAzXZ7NLP34jRZdj9R8YRZoIH1jejl/Cd1WMQptrlMtuUTnVB6VRyUzXI8ccv5BLuVzOV8fup9Q NYwYRfWeJ1G8aALlRQGzMNKKCvUdU62rZVesBt85ZEmhIJMaQeApUXt4Vb3BTtYdB0yrTWVcJoQ2KOEw PsT9DTKzUtZ3ZMJwUwJlYFEaILHcPNWjFSNISSC2OY JnTuCcXNiuGG1Lc9IygIT9YIe+Jh0SSA2gc8LpPCtnREFuDO1ydv4RICbQZzZzV5HebqX6DON1MFNqCz 5EFZQrDMOlgCTsEyZySYERRcMoQ1JhuO75LMNRIi5+SFyjvdTpEjlBWcH1EXGcl4FgAOw7SL3WJXZiDN v0dGYgI99rb3AbqJFxBznvY2udtdLuLQ8fEGWiXGZH QnGNVBK1PGHtHL5tBXNkZSMoEuLyLCIXZB1PTLZeBMBbjDRoEJAfIYTXBC8XTPmpWTD2YWQpnnHgcKWb CJbbTN7BUJBcueBoDrJaYCWMWJa+Dl5DAA8hk9FlVKrrWhLtOJ0qgt8UONjGQoSgD0F9bQNkA1I2KQzg Cz7XMBZoZSTwWiGuEFPUUSfsOK2LNB2qoaO0HT7HgQ QxJBBlYKKudYLvQKk3Y92qoBNkXDomIC3XQBT+Jocelyn+Cv2DNIHwFHMyLTMjCrXyWMEFTtQkR1TzU2TKu1 YoJ7ViQQ35qXzderRrVRvbAS7OBF4vWVIoAGUFQG4OrMRrmG1qvkCzLSMeBKIQEuPrX03auMWsYAEzAS C5FSOkDb2TOBJxI8ZrwzGzoMxbypKsZPFlSYAWJA4J RHntloKbiQHxpOasDS91zPbsGW4IAa9LGhHuZH9iuh6CmUHfGp6TQFDmSD8KYOLwRVRiUAGnIQC5YDBb YjBbVTpiCWFuIBBtMEO7MOFrAXEnYD5AYqBgHEFiFyL4EDUoSFFdDOUrcz8TLVVwZJPhOUJdQtZxOBKm PPZeDOcqYFGoKTLpBGO8ZONzHGNuFV4AWdUtLGBjNX O7ANZaWVYzTZSqtu4UWAVyQTUiNtwoFaEwUMWxLSEaJLpaLFCvHAW8UUNqSJUrJGGuYV1RFgLbTXMiZM rtBHnjAHKlXTXqyv4HQRJgOCTxGKE6NrFaTUBtXOHrHZqmQDQhUNScKTJdXCRpIPLlRA5PWpPoRYGmXP WpOQJjYIRfPLJizr0SFPJgWSEuGwRvVXXyYIShGZSz LPgjRVApIPY1OFdvDOHiUGXyLO8BWlLdUJSmJUf9ViklHDLfAWMtnk8NVSErRFXuDBcoTmCsBNDfDVIl HNiyBTAmCAM7FRJyTGIwTJAvRY1RSfVuWUSgKaDdHRAcSHTdZKZkib4SSYCpDDPwMQI6SPBrKZWzNOVa AEkgUWYgYHApBZYuUTSbONPqQD1KVuNuTVOxWxU9Je JsXRQsXNUgru0OCBCcANMmLMFoXHOoWUCmOUHsNQlrBAUzHXSzNKPlVUGvLXSyCW5SKyOoTZIjUvC5Qg CwOFNsWJFbnk4RHWZvDAHjTsr8OLYcZUMvGCYvEZcrCGSzFZFjHVVoKKQgJGIzRR5NDkHqVYXhIoH3Ve hxJPUjIRBobo8SRRRcOKIfLEc7GEKuETZfUHRpYHfa GYArSVZ9EVE0AJVvLUAsNK2LWhWpPWCmUvCwLKKvFBGhMTTqdw1RIOGmUVHcNYP4JHMfUHSwXBAiBYpl OIAoFWJ6QihrTAOiNZVnBM2GPuEgZLZsLyR8KOCgZPZlVQRiqb9UZINwGHGpKjk6KLIiCGNmWLFkIRac SGEcCPY1OUbhPZIqDHLcIC1RHrTmSYDqMph4AnQgCS IeOCIodi9AKHMpGHExZOgaTDFwRSQbSAHdHOuwBBHuZNX5XLn4SSImUVNsTU5UNgFdFLabGAGHCdb1XC htS5d0QRZiMZ6FH4Wkj8OoIwhgIFKTGNntUX5njrWaRFOdSr2UX6vCKxliEhRrSJPgPYCqTMIcMbPyZA PlUgEiXwk8VJU2PGKoMN8yFICxQbB2YrE7ZbXtN6Bs ZtYiAtWqHwCuGrS5XLO0YBZbIsOfZZ5FKn0CAsT1QYQ7fRGfIr5QIvcsDqHFRqKaAJ5TZNx= ID Date Data Source [id number] 06/15/2020 02:24:16 PM [facility] Name Value Range Interpretation Code Description Data Izabela rce(s) Supporting Document(s) Glucose [Mass/volume] in Capillary blood by Glucometer 159 mg/dL 70- 140 [facility] ID Date Data Source [id number] 06/15/2020 11:49:35 AM [facility] Name Value Range Interpretation Code Description Data Izabela rce(s) Supporting Document(s) Glucose [Mass/volume] in Capillary blood by Glucometer 159 mg/dL 70- 140 H [facility] ID Date Data Source [id number] 06/15/2020 12:12:31 PM [facility] Name Value Range Interpretation Code Description Data Izabela rce(s) Supporting Document(s) Magnesium [Mass/volume] in Serum or Plasma 1.6 mg/dL 1.6-2.4 [facility] ID Date Data Source [id number] 06/15/2020 12:12:31 PM [facility] Name Value Range Interpretation Code Description Data Izabela rce(s) Supporting Document(s) Bicarbonate [Moles/volume] in Serum 19 mmol/L 22-29 L [facility] Chloride [Moles/volume] in Serum or Plasma 107 mmol/L 98-107 [facility] Creatinine [Mass/volume] in Serum or Plasma 8.23 mg/dL 0.70-1.20 [facility] Glucose [Mass/volume] in Serum or Plasma 170 mg/dL 70-140 H [facility] Potassium [Moles/volume] in Serum or Plasma 5.1 mmol/L 3.4-5.1 [facility] Sodium [Moles/volume] in Serum or Plasma 142 mmol/L 136-145 [facility] Urea nitrogen [Mass/volume] in Serum or Plasma 84 mg/dL 8-23 [facility] Anion gap 3 in Serum or Plasma 16 mmol/L 8-15 H [facility] Osmolality of Serum or Plasma by calculation 323 mosm/kg 275-300 H [facility] Creatinine/Urea nitrogen [Mass Ratio] in Serum or Plasma 10 [facility] Calcium [Mass/volume] in Serum or Plasma 8.2 mg/dL 8.8-10.2 L [facility] Glomerular filtration rate/1.73 sq M pre dicted among non-blacks [Volume Rate/Area] in Serum or Plasma by Creatinine-based formula (MDRD) >6 0 [facility] Glomerular filtration rate/1.73 sq M pre dicted among blacks [Volume Rate/Area] in Serum or Plasma by Creatinine-based formula (MDRD) >60 [facility] ID Date Data Source [id number] 06/15/2020 12:12:31 PM [facility] Value Range Interpretation Code Description Data Izabela rce(s) Supporting Document(s) Phosphate [Mass/volume] in Serum or Plasma 6.1 mg/dL 2.5-4.5 H [facility] ID Date Data Source [id number] 06/15/2020 08:08:26 AM [facility] Value Range Interpretation Code Description Data Izabela rce(s) Supporting Document(s) Glucose [Mass/volume] in Capillary blood by Glucometer 99 mg/dL 70- 140 [facility] ID Date Data Source [id number] 06/15/2020 04:17:46 AM [facility] Value Range Interpretation Code Description Data Izabela rce(s) Supporting Document(s) Glucose [Mass/volume] in Capillary blood by Glucometer 113 mg/dL 70- 140 [facility] ID Date Data Source [id number] 06/18/2020 08:05:33 AM [facility] Service Cmnt XXX-Imp : NoneMicroorganism XXX Cult : No growth 3 days Name Value Range Interpretation Code Description Data Izabela rce(s) Supporting Document(s) ID Date Data Source [id number] 06/18/2020 08:05:24 AM [facility] Cmnt XXX-Imp : NoneMicroorganism XXX Cult : No growth 3 days Name Value Range Interpretation Code Description Data Izabela rce(s) Supporting Document(s) ID Date Data Source [id number] 06/15/2020 04:29:19 AM [facility] Value Range Interpretation Code Description Data Izabela rce(s) Supporting Document(s) Color of Urine [facility] Clarity of Urine [facility] Specific gravity of Urine by Refractometry automated 1.010 1.003 -1.030 [facility] pH of Urine by Automated test strip 8.0 5.0-8.0 [facility] Protein [Mass/volume] in Urine by Automated test strip Neg ative A [facility] Glucose [Mass/volume] in Urine by Automated test strip 150 mg/dL Neg ative A [facility] Ketones [Mass/volume] in Urine by Automated test strip 5 mg/dL Neg [facility] Bilirubin.total [Presence] in Urine by Automated test strip Negative [facility] Hemoglobin [Presence] in Urine by Automated test strip Neg [facility] Leukocyte esterase [Presence] in Urine by Automated test strip Negative [facility] Nitrite [Presence] in Urine by Automated test strip Negati [facility] Leukocytes [#/area] in Urine sediment by Automated count 3 /HPF 0 -5 [facility] Erythrocytes [#/area] in Urine sediment by Automated count 8481 /HPF 0-3 H [facility] ID Date Data Source [id number] 06/15/2020 04:21:01 AM [facility] Name Value Range Interpretation Code Description Data Izabela rce(s) Supporting Document(s) Color of Urine [facility] Clarity of Urine [facility] Specific gravity of Urine by Refractometry automated 1.009 1.003 -1.030 [facility] pH of Urine by Automated test strip 7.0 5.0-8.0 [facility] Protein [Mass/volume] in Urine by Automated test strip 30 mg/dL Neg [facility] Glucose [Mass/volume] in Urine by Automated test strip 50 mg/dL Neg [facility] Ketones [Mass/volume] in Urine by Automated test strip Neg [facility] Bilirubin.total [Presence] in Urine by Automated test strip Negative [facility] Hemoglobin [Presence] in Urine by Automated test strip Neg [facility] Leukocyte esterase [Presence] in Urine by Automated test strip Negative [facility] Nitrite [Presence] in Urine by Automated test strip Negati [facility] Leukocytes [#/area] in Urine sediment by Automated count 2 /HPF 0 -5 [facility] Erythrocytes [#/area] in Urine sediment by Automated count 676 /HPF 0-3 H [facility] ID Date Data Source [id number] 06/15/2020 03:59:10 AM [facility] Name Value Range Interpretation Code Description Data Izabela rce(s) Supporting Document(s) Leukocytes [#/volume] in Blood by Automated count 6.0 10*3/uL 4-10 [facility] Erythrocytes [#/volume] in Blood by Automated count 3.65 10*6/uL 4.6- 6.1 L [facility] Hemoglobin [Mass/volume] in Blood 11.3 g/dL 13.5-18 L [facility] Hematocrit [Volume Fraction] of Blood by Automated count 33.7 % 4 1-53 L [facility] Erythrocyte mean corpuscular volume [Entitic volume] by Auto mated count 92.1 fL 80-96 [facility] Erythrocyte mean corpuscular hemoglobin [Entitic mass] by Automated count 30.9 pg 27-33 [facility] Erythrocyte mean corpuscular hemoglobin concentration [Mass/volume] by [facility] 33.5 [facility] width [Ratio] by Automated count 14.4 % 11.5-14.5 [facility] Platelets [#/volume] in Blood by Automated count 235 10*3/uL 150-400 [facility] Differential cell count method - Blood [facility] Neutrophils/100 leukocytes in Blood by Automated count 70 % [facility] Lymphocytes/100 leukocytes in Blood by Automated count 14 % [facility] Monocytes/100 leukocytes in Blood by Automated count 12 % [facility] Eosinophils/100 leukocytes in Blood by Automated count 3 % [facility] Basophils/100 leukocytes in Blood by Automated count 1 % [facility] Neutrophils [#/volume] in Blood by Automated count 4.28 10*3/uL 1.8-7 .0 [facility] Lymphocytes [#/volume] in Blood by Automated count 0.86 10*3/uL 1.2-4 .0 L [facility] Monocytes [#/volume] in Blood by Automated count 0.70 10*3/uL 0-0.8 [facility] Eosinophils [#/volume] in Blood by Automated count 0.17 10*3/uL 0-0.5 [facility] Basophils [#/volume] in Blood by Automated count 0.04 10*3/uL 0-0.2 [facility] Nucleated erythrocytes/100 leukocytes [Ratio] in Blood by Automated count 0 /100{WBCs} 0-0 [facility] ID Date Data Source [id number] 06/15/2020 04:10:11 AM [facility] Name Value Range Interpretation Code Description Data Izabela rce(s) Supporting Document(s) Fibrin D-dimer FEU [Mass/volume] in Platelet poor plas ma by Immunoassay 2.78 ug/mL{FEU} <0.50 H [facility] ID Date Data Source [id number] 06/15/2020 04:17:19 AM [facility] Name Value Range Interpretation Code Description Data Izabela rce(s) Supporting Document(s) Bicarbonate [Moles/volume] in Serum 18 mmol/L 22-29 L [facility] Chloride [Moles/volume] in Serum or Plasma 108 mmol/L 98-107 [facility] Creatinine [Mass/volume] in Serum or Plasma 8.99 mg/dL 0.70-1.20 H [facility] Glucose [Mass/volume] in Serum or Plasma 121 mg/dL 70-140 [facility] Potassium [Moles/volume] in Serum or Plasma 5.2 mmol/L 3.4-5.1 [facility] Sodium [Moles/volume] in Serum or Plasma 143 mmol/L 136-145 [facility] Urea nitrogen [Mass/volume] in Serum or Plasma 90 mg/dL 8-23 H [facility] Anion gap 3 in Serum or Plasma 17 mmol/L 8-15 [facility] Osmolality of Serum or Plasma by calculation 325 mosm/kg 275-300 H [facility] Creatinine/Urea nitrogen [Mass Ratio] in Serum or Plasma 10 [facility] Calcium [Mass/volume] in Serum or Plasma 7.8 mg/dL 8.8-10.2 L [facility] Glomerular filtration rate/1.73 sq M pre dicted among non-blacks [Volume Rate/Area] in Serum or Plasma by Creatinine-based formula (MDRD) >6 0 [facility] Glomerular filtration rate/1.73 sq M pre dicted among blacks [Volume Rate/Area] in Serum or Plasma by Creatinine-based formula (MDRD) >60 [facility] ID Date Data Source [id number] 06/15/2020 04:17:19 AM [facility] Value Range Interpretation Code Description Data Izabela rce(s) Supporting Document(s) Magnesium [Mass/volume] in Serum or Plasma 1.6 mg/dL 1.6-2.4 [facility] ID Date Data Source [id number] 06/15/2020 04:17:19 AM [facility] Name Value Range Interpretation Code Description Data Izabela rce(s) Supporting Document(s) Troponin T.cardiac [Mass/volume] in Serum or Plasma 0.10 ng/mL <0.01 H [facility] ID Date Data Source [id number] 06/15/2020 04:17:19 AM [facility] Value Range Interpretation Code Description Data Izabela rce(s) Supporting Document(s) Phosphate [Mass/volume] in Serum or Plasma 6.8 mg/dL 2.5-4.5 H [facility] ID Date Data Source [id number] 06/15/2020 01:37:10 AM [facility] Value Range Interpretation Code Description Data Izabela rce(s) Supporting Document(s) Glucose [Mass/volume] in Capillary blood by Glucometer 124 mg/dL 70- 140 [facility] ID Date Data Source [id number] 06/15/2020 01:06:56 AM [facility] Value Range Interpretation Code Description Data Izabela rce(s) Supporting Document(s) Glucose [Mass/volume] in Capillary blood by Glucometer 125 mg/dL 70- 140 [facility] ID Date Data Source [id number] 06/15/2020 12:32:12 AM [facility] Value Range Interpretation Code Description Data Izabela rce(s) Supporting Document(s) Glucose [Mass/volume] in Capillary blood by Glucometer 138 mg/dL 70- 140 [facility] ID Date Data Source [id number] 06/15/2020 12:08:29 AM [facility] Value Range Interpretation Code Description Data Izabela rce(s) Supporting Document(s) Glucose [Mass/volume] in Capillary blood by Glucometer 154 mg/dL 70- 140 H [facility] ID Date Data Source [id number] 06/15/2020 12:51:47 AM [facility] Value Range Interpretation Code Description Data Izabela rce(s) Supporting Document(s) Bicarbonate [Moles/volume] in Serum 18 mmol/L 22-29 L [facility] Chloride [Moles/volume] in Serum or Plasma 104 mmol/L 98-107 [facility] Creatinine [Mass/volume] in Serum or Plasma 9.41 mg/dL 0.70-1.20 H [facility] Glucose [Mass/volume] in Serum or Plasma 196 mg/dL 70-140 H [facility] Potassium [Moles/volume] in Serum or Plasma 5.6 mmol/L 3.4-5.1 H [facility] Sodium [Moles/volume] in Serum or Plasma 137 mmol/L 136-145 [facility] Urea nitrogen [Mass/volume] in Serum or Plasma 94 mg/dL 8-23 H [facility] Anion gap 3 in Serum or Plasma 15 mmol/L 8-15 [facility] Osmolality of Serum or Plasma by calculation 318 mosm/kg 275-300 H [facility] Creatinine/Urea nitrogen [Mass Ratio] in Serum or Plasma 10 [facility] Calcium [Mass/volume] in Serum or Plasma 7.7 mg/dL 8.8-10.2 L [facility] Glomerular filtration rate/1.73 sq M pre dicted among non-blacks [Volume Rate/Area] in Serum or Plasma by Creatinine-based formula (MDRD) >6 0 [facility] Glomerular filtration rate/1.73 sq M pre dicted among blacks [Volume Rate/Area] in Serum or Plasma by Creatinine-based formula (MDRD) >60 [facility] ID Date Data Source [id number] 06/15/2020 12:51:47 AM [facility] Name Value Range Interpretation Code Description Data Izabela rce(s) Supporting Document(s) Troponin T.cardiac [Mass/volume] in Serum or Plasma 0.08 ng/mL <0.01 H [facility] ID Date Data Source [id number] 06/14/2020 11:38:59 PM [facility] Value Range Interpretation Code Description Data Izabela rce(s) Supporting Document(s) Glucose [Mass/volume] in Capillary blood by Glucometer 126 mg/dL 70- 140 [facility] ID Date Data Source [id number] 06/14/2020 10:24:44 PM [facility] Value Range Interpretation Code Description Data Izabela rce(s) Supporting Document(s) Glucose [Mass/volume] in Capillary blood by Glucometer 73 mg/dL 70- 140 [facility] ID Date Data Source [id number] 06/14/2020 09:26:30 PM [facility] IR NEPHROSTOMY INSERTION CHANGEFINAL RES ULTInterpreted by:RYAN [...] CT of the abdomen and pelvis from [facility] obtained on 06/13/2020TIME OUT: Prior to [...] pelvis. Subsequently after serial dilations, a 8.5 [place]an resolve nephrostomy drainage catheter was inserted into [...] pelvis. Subsequently after serial dilations, a 8.5 [place]an resolve nephrostomy drainage catheter was inserted into the renal pelvis. The catheter was then sutured to the skin with a 2-0 Prolene suture and a gravity drainage bag was attached to the tube. A sterile, occlusive dressing was placed on the skin surrounding the drain.FINDINGS: Bilateral marked hydronephrosis.IMPRESSION: Technically successful bilateral 8.5 [place]an nephrostomy tube placement.Plan: Exchange in approximately 8-12 weeks is recommended. This document has been electronically signed by Odell Sawant DO on 06/14/2020 9:24 PM Name Value Range Interpretation Code Description Data Izabela rce(s) Supporting Document(s) ID Date Data Source [id number] 06/14/2020 07:59:00 PM [facility] Name Value Range Interpretation Code Description Data Izabela rce(s) Supporting Document(s) History and Physical [facility] [id number] lbm [file] [id number] ID Date Data Source [id number] 06/14/2020 05:46:22 PM [facility] Name Value Range Interpretation Code Description Data Izabela rce(s) Supporting Document(s) Glucose [Mass/volume] in Capillary blood by Glucometer 78 mg/dL 70- 140 [facility] ID Date Data Source [id number] 06/14/2020 05:59:23 PM [facility] Name Value Range Interpretation Code Description Data Izabela rce(s) Supporting Document(s) Leukocytes [#/volume] in Blood by Automated count 5.3 10*3/uL 4-10 [facility] Erythrocytes [#/volume] in Blood by Automated count 3.62 10*6/uL 4.6- 6.1 L [facility] Hemoglobin [Mass/volume] in Blood 11.1 g/dL 13.5-18 L [facility] Hematocrit [Volume Fraction] of Blood by Automated count 33.5 % 4 1-53 L [facility] Erythrocyte mean corpuscular volume [Entitic volume] by Auto mated count 92.6 fL 80-96 [facility] Erythrocyte mean corpuscular hemoglobin [Entitic mass] by Automated count 30.7 pg 27-33 [facility] Erythrocyte mean corpuscular hemoglobin concentration [Mass/volume] by Automated count 33.1 g/dL 32.0-36.[facility] E[facility]th[facility] distribution width [Ratio] by Automated count 13.6 % 11.5-14.5 [facility] Platelets [#/volume] in Blood by Automated count 209 10*3/uL 150-400 [facility] Differential cell count method - Blood [facility] Neutrophils/100 leukocytes in Blood by Automated count 72 % [facility] Lymphocytes/100 leukocytes in Blood by Automated count 16 % [facility] Monocytes/100 leukocytes in Blood by Automated count 8 % [facility] Eosinophils/100 leukocytes in Blood by Automated count 3 % [facility] Basophils/100 leukocytes in Blood by Automated count 1 % [facility] Neutrophils [#/volume] in Blood by Automated count 3.88 10*3/uL 1.8-7 .0 [facility] Lymphocytes [#/volume] in Blood by Automated count 0.84 10*3/uL 1.2-4 .0 L [facility] Monocytes [#/volume] in Blood by Automated count 0.44 10*3/uL 0-0.8 [facility] Eosinophils [#/volume] in Blood by Automated count 0.13 10*3/uL 0-0.5 [facility] Basophils [#/volume] in Blood by Automated count 0.05 10*3/uL 0-0.2 [facility] Nucleated erythrocytes/100 leukocytes [Ratio] in Blood by Automated count 0 /100{WBCs} 0-0 [facility] ID Date Data Source [id number] 06/14/2020 06:13:18 PM [facility] Name Value Range Interpretation Code Description Data Izabela rce(s) Supporting Document(s) Prothrombin time (PT) 15.4 s 12.5-14.9 H [facility] INR in Platelet poor plasma by Coagulation assay 1.20 [facility] Routine intensity oral anticoagulation I NR is typically 2.0-3.0. Target INR must be clinically individualized. ID Date Data Source [id number] 06/14/2020 06:13:18 PM [facility] Value Range Interpretation Code Description Data Izabela rce(s) Supporting Document(s) aPTT in Platelet poor plasma by Coagulation assay 27.2 s 24.0-33. 0 [facility] ID Date Data Source [id number] 06/14/2020 06:27:46 PM [facility] Value Range Interpretation Code Description Data Izabela rce(s) Supporting Document(s) Albumin [Mass/volume] in Serum or Plasma by Bromocresol green (BCG) dye binding method 3.1 g/dL 3.5-5.2 [facility] Bilirubin.total [Mass/volume] in Serum or Plasma 0.3 mg/dL <1.2 [facility] Calcium [Mass/volume] in Serum or Plasma 7.9 mg/dL 8.8-10.2 L [facility] Chloride [Moles/volume] in Serum or Plasma 106 mmol/L 98-107 [facility] Creatinine [Mass/volume] in Serum or Plasma 9.79 mg/dL 0.70-1.20 H [facility] Glucose [Mass/volume] in Serum or Plasma 79 mg/dL 70-140 [facility] Alkaline phosphatase [Enzymatic activity/volume] in Serum or Plasma 93 U/L 40-129 [facility] Potassium [Moles/volume] in Serum or Plasma 5.8 mmol/L 3.4-5.1 H [facility] Protein [Mass/volume] in Serum or Plasma 5.5 g/dL 6.4-8.3 L [facility] Sodium [Moles/volume] in Serum or Plasma 142 mmol/L 136-145 [facility] Aspartate aminotransferase [Enzymatic activity/volume] in Serum or Plasma 18 U/L <40 [facility] Urea nitrogen [Mass/volume] in Serum or Plasma 96 mg/dL 8-23 H [facility] Osmolality of Serum or Plasma by calculation 323 mosm/kg 275-300 H [facility] Creatinine/Urea nitrogen [Mass Ratio] in Serum or Plasma 10 [facility] Bicarbonate [Moles/volume] in Serum 20 mmol/L 22-29 L [facility] Alanine aminotransferase [Enzymatic activity/volume] in Seru m or Plasma 29 U/L <41 [facility] Anion gap 3 in Serum or Plasma 16 mmol/L 8-15 H [facility] Glomerular filtration rate/1.73 sq M pre dicted among non-blacks [Volume Rate/Area] in Serum or Plasma by Creatinine-based formula (MDRD) >6 0 [facility] Glomerular filtration rate/1.73 sq M pre dicted among blacks [Volume Rate/Area] in Serum or Plasma by Creatinine-based formula (MDRD) >60 [facility] ID Date Data Source [id number] 06/14/2020 06:27:46 PM [facility] Name Value Range Interpretation Code Description Data Izabela rce(s) Supporting Document(s) Troponin T.cardiac [Mass/volume] in Serum or Plasma 0.09 ng/mL <0.01 H [facility] ID Date Data Source [id number] 06/14/2020 06:27:46 PM EST [facility] Name Value Range Interpretation Code Description Data Izabela rce(s) Supporting Document(s) Phosphate [Mass/volume] in Serum or Plasma 7.9 mg/dL 2.5-4.5 H [facility] ID Date Data Source [id number] 06/14/2020 06:27:46 PM [facility] Name Value Range Interpretation Code Description Data Izabela rce(s) Supporting Document(s) Magnesium [Mass/volume] in Serum or Plasma 1.6 mg/dL 1.6-2.4 [facility] ID Date Data Source [id number] 06/14/2020 04:32:00 PM EST [facility] Name Value Range Interpretation Code Description Data Izabela rce(s) Supporting Document(s) SARS-CoV-2 RNA [facility] This lab was ordered by [facility] and reported by [facility]. 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 [facility] Patient has symptoms related to [facility] When did you start to experience these symptoms [Date and time] [Phen X] [facility] Patient was hospitalized because of this condition [facility] patient was admitted to ICU for [facility] Patient resides in a congregate care setting [facility] status [facility] ID Date Data Source [id number] 06/14/2020 08:24:02 PM [facility] Name Value Range Interpretation Code Description Data Izabela rce(s) Supporting Document(s) Glucose [Mass/volume] in Capillary blood by Glucometer 77 mg/dL 70- 140 [facility] ID Date Data Source [id number] 06/13/2020 10:55:00 PM EST [facility] Name Value Range Interpretation Code Description Data Izabela rce(s) Supporting Document(s) Coronavirus 2019 Nasopharygeal Laboratory test result [facility] ([facility] Laboratory test finding (navigational concept) Laboratory test r esult Normal (applies to non-numeric results) [facility] ([facility] A false negative result may [...] pathogens. DISCLAIMER: Testing was performed using the [employer] SARS-CoV-2 test. This test was developed and its performance characteristics determined by [employer]. This test has not been FDA cleared [...] or revoked sooner. ID Date Data Source [id number] 06/13/2020 10:55:00 PM EST [facility] Name Value Range Interpretation Code Description Data Izabela rce(s) Supporting Document(s) SARS coronavirus 2 RNA [Presence] in Res piratory specimen by JOHANNE with probe detection [facility] This lab was ordered by [facility] a nd reported by [facility]. ID Date Data Source [id number] 06/13/2020 09:59:00 PM EST [facility] ([facility] Name Value Range Interpretation Code Description Data Izabela rce(s) Supporting Document(s) Troponin I.cardiac [Mass/volume] in Serum or Plasma Laboratory test result [facility] ([facility] Laboratory test finding (navigational concept) 0.14 ng/mL 0 .00-0.08 Above high normal [facility] ([facility] ) ID Date Data Source [id number] 06/13/2020 09:54:00 PM EST [facility] ([facility] Name Value Range Interpretation Code Description Data Izabela rce(s) Supporting Document(s) Natriuretic peptide.B prohormone N-Terminal [Mass/volu me] in Serum or Plasma 63815 pg/mL Above high normal [facility] ([facility] Lipoprotein lipase [Enzymatic activity/volume] in Serum or P lasma 891 U/L 73-393 Above high normal [facility] ([facility] Troponin I.cardiac [Mass/volume] in Serum or Plasma 0.08 ng/mL Normal (applies to non-numeric results) [facility] ([facility] <content>Troponin I Reference Interval f or Siemens [place] LOCI:</content>
<content></content>
<content>99th Percentile= 0.00-0.045 ng/ml</content>
<content></content>
[...] plasma 3589.24 ng/mL Above high normal [facility] ([facility] ) ID Date Data Source [id number] 06/13/2020 09:54:00 PM EST [facility] ([facility] Name Value Range Interpretation Code Description Data Izabela rce(s) Supporting Document(s) Glucose, Fasting 76 mg/dL 70-100 Normal (applies to non-numeric results) [facility] ([facility] Blood Urea Nitrogen 101 mg/dL 7-18 Above high normal [facility] ([facility] Glomerular Filtration Rate 6.2 Below low normal [facility] ([facility] <content>Units are mL/min/1.73 m2</content>
<content></content>
<content>Chronic Kidney Disease Staging per NKF:</content>
<content></content>
<content>Stage I & II GFR >=60 Normal to Mildly Decreased</content>
<content>Stage III GFR 30- 59 Moderately Decreased</content>
<content>Stage IV GFR 15-29 Severely Decreased</content>
<content>Stage V GFR <15 Very Little GFR Left</content>
<content>ESRD GFR <15 on TIME RECORDER</content>
<content></content> Creatinine For GFR 8.78 mg/dL 0.70-1.30 Above upper panic limits [facility] ([facility] Sodium Level 139 meq/L 136-145 Normal (applies to non-numeric res ults) [facility] ([facility] Chloride Level 109 meq/L 98-107 Above high normal [facility] ([facility] Potassium Serum 6.6 meq/L 3.5-5.1 Above upper panic limits [facility] ([facility] This specimen has an elevated potassium level but there is NO visible hemolysis noted. Carbon Dioxide Level 15 meq/L 21-32 Below low normal [facility] ([facility] Anion Gap 15 meq/L 8-16 Normal (applies to non-numeric resul ts) [facility] ([facility] Calcium Level 7.7 mg/dL 8.8-10.2 Below low normal [facility] ([facility] Alt/SGPT 47 U/L 12-78 Normal (applies to non-numeric resul ts) [facility] ([facility] Ast/Sgot 32 U/L 7-37 Normal (applies to non-numeric resul ts) [facility] ([facility] Bilirubin,Total 0.4 mg/dL 0.2-1.0 Normal (applies to non-numeric results) [facility] ([facility] Alkaline Phosphatase 103 U/L 45-117 Normal (applies to non-num rodrigo results) [facility] ([facility] Total Protein 6.1 GM/DL 6.4-8.2 Below low normal [facility] ([facility] Albumin/Globulin Ratio 1.1 Normal (applies to non-n umeric results) [facility] ([facility] Albumin 3.2 GM/DL 3.2-5.2 Normal (applies to non-numeric resul ts) [facility] ([facility] ID Date Data Source [id number] 06/13/2020 09:54:00 PM EST [facility] ([facility] Name Value Range Interpretation Code Description Data Izabela rce(s) Supporting Document(s) Red Blood Count 3.36 10 4.30-6.10 Below low normal [facility] ([facility] White Blood Count 6.3 10 4.0-10.0 Normal (applies to non-numeri c results) [facility] ([facility] Hemoglobin 9.9 g/dL 13.5-17.5 Below low normal [facility] ( [facility] Hematocrit 32.0 % 42.0-52.0 Below low normal [facility] ( [facility] Mean Corpuscular Volume 95.2 fl 80.0-96.0 Normal ( applies to non-numeric results) [facility] ([facility] ) Mean Corpuscular Hemoglobin 29.5 pg 27.0-33.0 Norm al (applies to non-numeric results) [facility] ([facility] ) Mean Corpuscular HGB Conc 30.9 g/dL 32.0-36.5 Below low normal [facility] ([facility] Red Cell Distribution Width 14.2 % 11.5-14.5 Norm al (applies to non-numeric results) [facility] ([facility] ) Platelet Count, Automated 224 10 150-450 Normal (applies to non-numeric results) [facility] ([facility] ) Neutrophils % 66.7 % 36.0-66.0 Above high normal [facility] ([facility] Lymph % 22.3 % 24.0-44.0 Below low normal [facility] ( [facility] Summit % 8.7 % 0.0-5.0 Above high normal [facility] ([facility] Eos % 1.3 % [...] normal [facility] ( [facility] Summit # 0.6 10 0.0-0.8 Normal (applies to non-numeric resul ts) [facility] ([facility] Eos # 0.1 10 0.0-0.5 Normal (applies to non-numeric resul ts) [facility] ([facility] Baso # 0.0 10 0.0-0.2 Normal (applies to non-numeric resul ts) [facility] ([facility] ID Date Data Source [id number] 05/30/2020 12:00:00 PM EST [facility] ([facility] Name Value Range Interpretation Code Description Data Izabela rce(s) Supporting Document(s) Laboratory test finding (navigational concept) Laboratory test result [facility] ([facility] Occult Blood Reenter Laboratory test result [facility] ([facility] { DATE COLLECTED 05/28/20 { HEMOCCULT LOT # [id number] ) { LOT EXP DATE 07/06 ) Laboratory test finding (navigational concept) Laboratory test result [facility] ([facility] Laboratory test finding (navigational concept) Laboratory test result [facility] ([facility] Laboratory test finding (navigational concept) Laboratory test result [facility] ([facility] ID Date Data Source [id number] 05/31/2020 03:14:00 PM [facility] Name Value Range Interpretation Code Description Data Izabela rce(s) Supporting Document(s) OCCULT BL #1 NEGATIVE NORMAL: NEGATIVE [facility] NEGATIVE{ DATE COLLECTED OCCULT BL #2 NEGATIVE NORMAL: NEGATIVE [facility] NEGATIVE{ DATE COLLECTED OCCULT BL #3 NEGAT[address]ORMAL: NEGATIVE [facility] NEGATIVE{ DATE COLLECTED { HEMOCCULT LOT # [id number] ){ LOT EXP DATE 07/06 ) CEDURAL CONTROL PO /NEG [facility] ID Date Data Source [id number] 05/28/2020 02:55:00 PM EST [facility] ([facility] Name Value Range Interpretation Code Description Data Izabela rce(s) Supporting Document(s) Microscopic observation [Identifier] in Unspecified specimen by Non- gynecological cytology method Laboratory test result [facility] ([facility] SPECIMEN: Urine 100ml Hazy yellow SPECIMEN ADEQUACY: Satisfactory for evaluation CATEGORIZATION: Negative for High-Grade Urothelial Carcinoma DESCRIPTIONS: Specimen consists mainly of abundant neutrophils COMMENTS: 05/29/2020 - 920 Signed CONCEPCION LENZ(ASCP) 05/29/2020 09 (Prelim) Signed TROY JALLOH MD 05/29/2020 1218 ID Date Data Source [id number] 05/28/2020 02:24:00 PM EST [facility] ([facility] Name Value Range Interpretation Code Description Data Izabela rce(s) Supporting Document(s) Urate [Mass/volume] in Serum or Plasma 6.5 mg/dL 3.5-7.2 Normal (applies to non- numeric results) [facility] ([facility] ) Prostate specific Ag [Mass/volume] in Serum or Plasma 0.24 ng/mL Normal (applies to non-numeric results) [facility] The PSA assay is performed on the [employer] analyzer by [employer] sandwich chemiluminescent immunoassay and [...] ng/mL Normal (applies to non-numeric results) [facility] ([facility] THE CEA ASSAY IS PERFORMED ON THE [employer] BY CHEMILUMINESCENCE AND SHOULD NOT BE COMPARED INTERCHANGEABLY WITH OTHER METHODS. IT SHOULD NOT BE USED ALONE A SCREENING TEST OR DIAGNOSIS FOR THE PRESENCE OR ABSENCE OF MALIGNANT DISEASE. PREDICTIONS OF DISEASE RECURRENCE SHOULD NOT BE BASED SOLELY ON VALUES OBTAINED FROM SERIAL PATIENT SERUM VALUES. ID Date Data Source [id number] 05/28/2020 02:24:00 PM EST [facility] ([facility] Name Value Range Interpretation Code Description Data Izabela rce(s) Supporting Document(s) Glucose, Fasting 83 mg/dL 70-100 Normal (applies to non-numeric results) [facility] ([facility] Blood Urea Nitrogen 59 mg/dL 7-18 Above high normal [facility] ([facility] Glomerular Filtration Rate 14.3 Below low normal [facility] ([facility] <content>Units are mL/min/1.73 m2</content>
<content></content>
<content>Chronic Kidney Disease Staging per NKF:</content>
<content></content>
<content>Stage I & II GFR >=60 Normal to Mildly Decreased</content>
<content>Stage III GFR 30- 59 Moderately Decreased</content>
<content>Stage IV GFR 15-29 Severely Decreased</content>
<content>Stage V GFR <15 Very Little GFR Left</content>
<content>ESRD GFR <15 on TIME RECORDER</content>
<content></content> Creatinine For GFR 4.23 mg/dL 0.70-1.30 Above high normal [facility] ([facility] Sodium Level 144 meq/L 136-145 Normal (applies to non-numeric res ults) [facility] ([facility] Potassium Serum 5.2 meq/L 3.5-5.1 Above high normal [facility] ([facility] Chloride Level 114 meq/L 98-107 Above high normal [facility] ([facility] Anion Gap 4 meq/L 8-16 Below low normal [facility] ( [facility] Carbon Dioxide Level 26 [...] umeric results) [facility] ([facility] ID Date Data Source [id number] 05/28/2020 02:24:00 PM EST [facility] ([facility] Name Value Range Interpretation Code Description Data Izabela rce(s) Supporting Document(s) Inr 1.02 Normal (applies to non-numeric resul ts) [facility] ([facility] THERAPUTIC HUMAN INR VALUES INDICATIONS NORMAL RANGES PROPHYLAXIS/TREATMENT OF: VENOUS THROMBOSIS 2.0-3.0 PULMONARY EMBOLISM 2.0-3.0 PREVENTION OF SYSTEMIC EMBOLISM FROM: TISSUE HEART VALVES 2.0-3.0 ACUTE MYOCARDIAL INFARCTION 2.0-3.0 VALVULAR HEART DISEASE 2.0-3.0 ATRIAL FIBRILLATION 2.0-3.0 MECHANICAL VALVES(HIGH RISK) 2.5-3.5 RECURRENT MYOCARDIAL INFARCTION 2.5-3.5 Prothrombin Time 13.6 s 12.5-14.3 Normal (applies to non-numeric results) [facility] ([facility] Partial Thromboplastin Time 28.8 s 24.2-38.5 Norm al (applies to non-numeric results) [facility] ([facility] ) ID Date Data Source [id number] 05/28/2020 02:24:00 PM EST [facility] ([facility] Name Value Range Interpretation Code Description Data Izabela rce(s) Supporting Document(s) White Blood Count 5.4 10 4.0-10.0 Normal (applies to non-numeri c results) [facility] ([facility] Red Blood Count 3.15 10 4.30-6.10 Below low normal [facility] ([facility] Hemoglobin 9.6 g/dL 13.5-17.5 Below low normal [facility] ( [facility] Mean Corpuscular Volume 95.9 fl 80.0-96.0 Normal ( applies to non-numeric results) [facility] ([facility] ) Hematocrit 30.2 % 42.0-52.0 Below low normal [facility] ( [facility] Mean Corpuscular Hemoglobin 30.5 pg 27.0-33.0 Norm al (applies to non-numeric results) [facility] ([facility] ) Mean Corpuscular HGB Conc 31.8 g/dL 32.0-36.5 Below low normal [facility] ([facility] Red Cell Distribution Width 12.5 % 11.5-14.5 Norm al (applies to non-numeric results) [facility] ([facility] ) Platelet Count, Automated 184 10 150-450 Normal (applies to non-numeric results) [facility] ([facility] ) Lymph % 32.9 % 24.0-44.0 Normal (applies to non-numeric resul ts) [facility] ([facility] Neutrophils % 49.8 % 36.0-66.0 Normal (applies to non-numeric re sults) [facility] ([facility] Summit % 11.0 % 0.0-5.0 Above high normal [facility] ([facility] Baso % 0.9 % 0.0-1.0 Normal (applies to non-numeric resul ts) [facility] ([facility] Eos % 5.2 % 0.0-3.0 Above high normal [facility] ([facility] Immature Granulocyte % 0.2 % 0-3.0 Normal (applies to non-n umeric results) [facility] ([facility] Neutrophils # 2.7 10 1.5-8.5 Normal (applies to non-numeric re sults) [facility] ([facility] Nucleated Red Blood Cell % 0.0 % 0-0 Normal (applies to n on-numeric results) [facility] ([facility] Lymph # 1.8 10 1.5-5.0 Normal (applies to non-numeric resul ts) [facility] ([facility] Summit # 0.6 10 0.0-0.8 Normal (applies to non-numeric resul ts) [facility] ([facility] Baso # 0.1 10 0.0-0.2 Normal (applies to non-numeric resul ts) [facility] ([facility] Eos # 0.3 10 0.0-0.5 Normal (applies to non-numeric resul ts) [facility] ([facility] ID Date Data Source [id number] 05/18/2020 05:50:00 PM EST [facility] ([facility] Name Value Range Interpretation Code Description Data Izabela rce(s) Supporting Document(s) Basic Metabolic Pane Laboratory test result [facility] ([facility] .~.~C61 Sodium 142 meq/L 134-153 [facility] ([facility] .~.~C61 Potassium 4.9 meq/L 3.6-5.0 [facility] ([facility] .~.~C61 Chloride 107 meq/L 98-107 [facility] ([facility] .~.~C61 Co2 24 meq/L 22-30 [facility] ([facility] .~.~C61 Glucose 106 mg/dL 65-110 [facility] .~.~C61 BUN 53 mg/dL 7-21 Above high normal [facility] ([facility] .~.~C61 Creatinine 3.1 mg/dL 0.7-1.5 Above high normal [facility] ([facility] .~.~C61 Calcium 8.7 mg/dL 8.4-10.2 [facility] .~.~C61 BUN/Creat 17 8-27 [facility] .~.~C61 Anion Gap 11.0 mmol/L 8.0-16.0 [facility] ([facility] .~.~C61 Age 84 yrs [facility] .~.~C61 Afr Amer GFR 25 mL/min [facility] .~.~C61 Non-Aa GFR 21 mL/min [facility] ([facility] .~.~C61 ID Date Data Source [id number] 05/18/2020 05:50:00 PM EST [facility] ([facility] Name Value Range Interpretation Code Description Data Izabela rce(s) Supporting Document(s) Prostate specific Ag [Mass/volume] in Serum or Plasma 0.23 ng/mL 0.00 -4.00 [facility] ([facility] .~.~C61 ID Date Data Source [id number] 05/18/2020 06:51:00 PM [facility] Name Value Range Interpretation Code Description Data Izabela rce(s) Supporting Document(s) BASIC METABOLIC PANEL [facility] BASIC METABOLIC PANEL Sodium [Moles/volume] in Serum or Plasma 142 mEq/L 134 - 153 [facility] Potassium [Moles/volume] in Serum or Plasma 4.9 mEq/L 3.6 - 5.0 [facility] Chloride [Moles/volume] in Serum or Plasma 107 mEq/L 98 - 107 [facility] Carbon dioxide, total [Moles/volume] in Serum or Plasma 24 MEQ/L 22 - 30 [facility] Glucose [Mass/volume] in Serum or Plasma 106 MG/DL 65 - 110 [facility] BUN 53 MG/DL 7 - 21 [facility] Creatinine [Mass/volume] in Serum or Plasma 3.1 MG/DL 0.7 - 1.5 H [facility] BUN/CREAT 17 8 - 27 [facility] Calcium [Mass/volume] in Serum or Plasma 8.7 MG/DL 8.4 - 10.2 [facility] Anion gap 3 in Serum or Plasma 11.0 mmol/L 8.0 - 16.0 [facility] AGE 84 yrs [facility] AFR AMER GFR 25 mL/min [facility] NON-AA GFR 21 mL/min [facility] Male GFR Inter prentation 20-49 yrs [...] >32 mL/min Normal ID Date Data Source [id number] 05/18/2020 06:40:00 PM EST [facility] Name Value Range Interpretation Code Description Data Izabela rce(s) Supporting Document(s) Prostate specific Ag [Mass/volume] in Serum or Plasma 0.23 ng/mL 0.00 - 4.00 [facility] \\BLDo\\PSA INTERPRETA TION\\BLDx\\ The PSA assay should not be used alone for a screening test or diagnosis for presence or absence of malignant disease. Predictions of disease recurrence should not be based solely on values obtained from serial patient serum values. The PSA result was determined by "[employer]", on the [employer] ANY 6000. Values obtained with different assay methods or kits cannot be used interchangeably. ID Date Data Source [id number] 04/06/2020 09:31:00 [place] [address] PHONE: [phone] FAX: [phone] Name .................. : CALLIE Young Acct Number.................. : [id number] ROOM. ................. : Number ................... : [id number] Stay type ............. : O/P Discharge Date......... ... : 04/04/20 Admit Date ......... : 04/04/20 Admit Phys .................... : OBENFELIX Date of ....... : 1935 Family Phys ................... : MAN SUAREZ Phone .................. : [phone] Age ................................ : 84 Film# .................. .:[id number] Sex ................................. : M Unsigned transcriptions are preliminary reports and do not represent a medical or legal document CT ABD & PELV W/[place] OR[place] W/[place] [id number] COMPLETE:04/04/20 19:30 WISAM 93453 (REASON FOR ABDOMEN: HX MUSCLE INVASIVE BLADDER [...] as compared to the previous examination. A Felipe catheter is present. The urinary bladder is [...] the left side. Page 1 of [address] [place] [address] PHONE: [phone] FAX: [phone] Name .................. : CALLIE Young Acct Number.................. : [id number] ROOM. ................. : MR Number ................... : [id number] Stay type ............. : O/P Discharge Date......... ... : 04/04/20 Admit Date ......... : 04/04/20 Admit Phys .................... : OBENFELIX Date of ....... : 1935 Family Phys ................... : MAN SUAREZ Phone .................. : [phone] Age ................................ : 84 Film# .................. .:[id number] Sex ................................. : M Unsigned transcriptions are preliminary reports and do not represent a medical or legal document CT ABD & PELV W/[place] OR[place] W/[place] [id number] COMPLETE:04/04/20 19 :30 WISAM 71646 (REASON FOR ABDOMEN: HX MUSCLE INVASIVE BLADDER [...] EDITH Vidal. Examination was reviewed with Thanh Howell MD, radiologist at the time of this dictation. Electronically Reviewed and Signed By Thanh Howell MD , 04/06/20 09:31, KG Transcribe Initials: SSR, Transcribe Date: 04/05/20 07:05, Dictation Date: Copy for: LESLEE TUCKER via fax Copy for: MAN DILLARD via fax Copy for: [facility] REC Page 2 of 2 Name Value Range Interpretation Code Description Data Izabela rce(s) Supporting Document(s) ID Date Data Source [id number] 04/06/2020 09:30:00 [place] [address] PHONE: [phone] FAX: [phone] Name .................. : CALLIE Young Acct Number.................. : [id number] ROOM. ................. : MR Number ................... : [id number] Stay type ............. : O/P Discharge Date......... ... : 04/04/20 Admit Date ......... : 04/04/20 Admit Phys .................... : OBENFELIX Date of ....... : 1935 Family Phys ................... : MAN SUAREZ Phone .................. : [phone] Age ................................ : 84 Film# .................. .:[id number] Sex ................................. : M Unsigned transcriptions are preliminary reports and do not represent a medical or legal document CT THORAX W/O CONTRAST 11222 COMPLETE:04/04/20 08:35 [id number] (REASON FOR CHEST: HX MUSCLE INVASIVE BLADDER [...] dose 614.2 mGycm. Page 1 of [address] [place] [address] PHONE: [phone] FAX: [phone] Name .................. : CALLIE Young Acct Number.................. : [id number] ROOM. ................. : MR Number ................... : [id number] Stay type ............. : O/P Discharge Date......... ... : 04/04/20 Admit Date ......... : 04/04/20 Admit Phys .................... : OBENFELIX Date of ....... : 1935 Family Phys ................... : MAN SUAREZ Phone .................. : [phone] Age ................................ : 84 Film# .................. .:[id number] Sex ................................. 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 Examination was reviewed with Thanh Howell MD, radiologist at the time of this dictation. Electronically Reviewed and Signed By Thanh Howell MD , 04/04/20 12:24, KG Transcribe Initials: SSR, Transcribe Date: 04/04/20 11:27, Dictation Date: Copy for: LESLEE TUCKER via fax Copy for: MAN DILLARD via fax Copy for: [facility] MED REC 04/04/20 AT 12:10 ADDENDUM/REDICTATION BY EDITH LINN/THANH HOWELL MD: COMPARISON: Previous examination from 12/14/19. FINDINGS: [...] demonstrate degenerative changes. Page 2 of 3 [place] [address] PHONE: [phone] FAX: [phone] Name .................. : CALLIE Young Acct Number.................. : [id number] ROOM. ................. : MR Number ................... : [id number] Stay type ............. : O/P Discharge Date......... ... : 04/04/20 Admit Date ......... : 04/04/20 Admit Phys .................... : OBENFELIX Date of ....... : 1935 Family Phys ................... : MAN SUAREZ Phone .................. : [phone] Age ................................ : 84 Film# .................. .:[id number] Sex ................................. 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 Continued follow up in one year is recommended. Examination dictated by EDITH Vidal. Examination was reviewed with Thanh Howell MD, radiologist at the time of this dictation. Electronically Reviewed and Signed By Thanh Howell MD , 04/06/20 09:30, KG Transcribe Initials: DZ , Transcribe Date: 04/04/20 23:49, Dictation Date: Copy for: LESLEE TUCKER via fax Copy for: MAN DILLARD via fax Copy for: [facility] MED REC Page 3 of 3 Name Value Range Interpretation Code Description Data Izabela rce(s) Supporting Document(s) ID Date Data Source [id number] 04/04/2020 08:32:00 AM EDT [facility] ([facility]) Name Value Range Interpretation Code Description Data Izabela rce(s) Supporting Document(s) CT Thorax W/O Contrast Laboratory test result [facility] ([facility]) ID Date Data Source [id number] 04/04/2020 08:31:00 AM EDT [facility] ([facility]) Name Value Range Interpretation Code Description Data Izabela rce(s) Supporting Document(s) CT Abd & Pelv W/O Oral W/O IV Laboratory test result [facility] ([facility]) ID Date Data Source [id number] 03/28/2020 12:54:00 PM EDT [facility] 1 OrderSheet [facility] Emergency Department [address] [place] [address] Phone #: kat- [phone] 03/28/2020 12:32 Patient: GOYO LEDESMA Sex: M : 1935 Age: 84yWEIGHT:63.5 kg (S) HEIGHT:65 inches (S) BMI:23.3ALLERGIES: No Known Drug AllergyCHIEF COMPLAINT: Felipe problemDIAGNOSIS: Change of urethral catheter, Urinary tract infectious diseaseLAB ORDERSOrder Description Priority Entered Acknowledged InitialedCBC w Diff STAT 13:04 03/28/2020 13:14 Arnold Edgar Xavier design sales consultant, [place] Physician; [id number] STAT 13:04 03/28/2020 13:14 Arnold Edgar Xavier design sales consultant, [place] [facility] Physician; [id number] (Cath STAT 13:04 03/28/2020 13:19 Angela Joy) Edgar Sharma Physician;DIAGNOSTIC STUDY ORDERSOrder Description Priority Entered Acknowledged InitialedMEDICATION/IV/DRIP/FLUID ORDERSOrder Description Priority Entered Acknowledged InitialedGENERAL ORDERSOrder Description Priority Entered Acknowledged Initialed-- (Remove felipe 13:04 03/28/2020 13:19 Rufino,and replace with Edgar Peñaw felipe cath) Physician;[Electronically signed by Zachary Joy (13:57 03/28/2020)][Electronically signed by Edgar Xavier Physician (22:22 03/28/2020)][Electronically locked by Zachary Joy (13:57 03/28/2020)] Name Value Range Interpretation Code Description Data Izabela rce(s) Supporting Document(s) ID Date Data Source [id number] 03/28/2020 12:54:00 PM EDT [facility] 1 Medication Reconciliation Report [facility] Emergency Department [address] [place] [address] Phone #: ext- [phone] 03/28/2020 12:32 Patient: GOYO LEDESMA Sex: M : 1935 Age: 84yWeight: 63.5 [...] Dispense 14tablet. Refills: 0. Substitution permitted.Pharmacy - [facility] - [address] [place] [address] [phone]. . -- Edgar Xavier, Physician Name Value Range Interpretation Code Description Data Izabela rce(s) Supporting Document(s) ID Date Data Source [id number] 03/28/2020 12:54:00 PM EDT [facility] 1 Medication Administration Record [facility] Emergency Department [address] [place] [address] Phone #: ext [phone] 03/28/2020 12:32 Patient: GOYO LEDESMA Sex: M : 1935 Age: 84yWeight: 63.5 kgHeight/Length: 65 inBMI: 23.3ALLERGIES: No Known Drug AllergyDate/Time Medication Administered Medication Ordered Name Value Range Interpretation Code Description Data Izabela rce(s) Supporting Document(s) ID Date Data Source [id number] 03/28/2020 12:54:00 PM EDT [facility] 1 General Instructions [facility] Emergency Department [address] [place] [address] Phone #: ext- [phone] 03/28/2020 12:32 Patient: GOYO LEDESMA Sex: M : 1935 Age: 84yFoley catheter [...] Dispense 14tablet. Refills: 0. Substitution permitted.Pharmacy - [facility] - [address] [facility] ; [place], [place] [id number]. .Understanding of the discharge instructions verbalized by patient.Follow-up with: Fidel Camilo M.D., Urology, , [address] [place] [address], [facility] Follow up as scheduled. Reason for referral: evaluation, treatment and Neurogenic bladder / Foleyreplacements. ADDITIONAL INFORMATIONFoley Catheter Care 2 General Instructions [facility] Emergency Department [address] [place] [address] Phone #: ext- [phone] 03/28/2020 12:32 Patient: GOYO LEDESMA Sex: M : 1935 Age: 84yA Felipe catheter is a rubber tube that is placed through the urethra (opening where urine comes out)and into the bladder. This helps drain urine from the bladder. There is a small balloon on the end ofthe tube that is inflated after insertion. This keeps the catheter from sliding out of the bladder.A Felipe catheter is used to treat urinary retention [...] by your healthcare provider 3 General Instructions [facility] Emergency Department [address] [place] [address] Phone #: ext- [phone] 03/28/2020 12:32 Patient: GOYO LEDESMA Sex: M : 1935 Age: 84y Bladder pain or fullness Abdominal swelling, nausea or vomiting, or back pain Blood or urine leakage around the catheter Bloody urine coming from the catheter (if a new symptom) Catheter falls out Catheter stops draining for 6 hours Weakness, dizziness, or fainting [id number] [employer]. [address] [place] [address], [place] [address]. All rights reserved. This information is not [...] up to the kidney. 4 General Instructions [facility] Emergency Department [address] [place] [address] Phone #: ext- [phone] 03/28/2020 12:32 Patient: GOYO LEDESMA Sex: M : 1935 Age: 84yThe terms [...] the urine and travel up to the [address] [place] [address] Emergency Department [address] [place] [address] Phone #: ext- [phone] 03/28/2020 12:32 Patient: GOYO LEDESMA Sex: M : 1935 Age: 84ybladder. This causes inflammation and an infection. This usually happens because of: An enlarged prostate Poor cleaning of the genitals Procedures that put a tube in your bladder, like a Felipe catheter Bowel incontinence Older age Not emptying [...] toilet, and clean your 6 General Instructions [facility] Emergency Department [address] [place] [address] Phone #: ext- [phone] 03/28/2020 12:32 Patient: GOYO LEDESMA Sex: M : 1935 Age: 84y penis [...] any findings that may affect your care.Call [phone] if any of these occur: Trouble breathing [...] pain that gets worse 7 General Instructions [facility] Emergency Department [address] [place] [address] Phone #: ext- [phone] 03/28/2020 12:32 Patient: GOYO LEDESMA Sex: M DO B: 1935 Age: 84y Repeated vomiting, or you aren't able to keep medicine down Weakness or dizziness [id number] [employer]. [address] [place] [address]. All rights reserved. This information is not intended as asubstitute for professional medical care. Always follow your healthcare professional's instructions. You have been given the following additional information: Felipe Catheter, Care Bladder Infection, Male (Adult)(Electronically signed by Edgar Xavier, Physician 03/28/2020 22:22) Name Value Range Interpretation Code Description Data Izabela rce(s) Supporting Document(s) ID Date Data Source [id number] 03/28/2020 12:54:00 PM EDT [facility] 1 Clinical Report - Nurses [facility] Emergency Department [address] [place] [address] Phone #: ext- [phone] 03/28/2020 12:32 Patient: GOYO LEDESMA Sex: M : 1935 Age: 84yTRIAGEArrived by private vehicle. Historian: patient. ( Pt states noted urine leaking from penis around foleycatheter. Felipe placed yesterday, leaking noted today. Denies pain.).Triage time: 12:40 03/28/2020. Acuity: LEVEL 4.12:47 03/28/20.This started today.Treatment HEEL SEAT LASTER:None.SEPSIS SCREEN: SIRS Screen negative. Sepsis Screen negative. [...] Joy.AllergiesNo Known Drug Allergy. --13:54 03/28/20 Zachary Joy.Yuvltzu87:47 03/28/20.PAST MEDICAL HX: Immunizations: up-to-date.SOCIAL HX: Never [...] yourself?" and 2 Clinical Report - Nurses [facility] Emergency Department [address] [place] [address] Phone #: ext- [phone] 03/28/2020 12:32 Patient: GOYO LEDESMA Sex: M : 1935 Age: 84y "Have [...] To treatment room. --12:47 03/28/20 Zachary Joy.PHYSICAL [id number] 03/28/20.GI / : ( [address], 10cc balloon. Urine leaking [...] ( Pt presented to ED with 16 senegalese felipe w/ 10ccballoon. 16 Chilean felipe removed. New 18 Chilean felipe inserted with minimal resistance, urine collected Pttolerated well. Will continue to monitor.). --13:22 03/28/20 Zachary Joy 13:45 03/28/20. ( New felipe catheter appears to no longer be leaking. Pt also states feels like it is no longer leakin. QMP aware.). --13:50 03/28/20 Zachary Joy.DISPOSITION / DISCHARGE 3 Clinical Report - Nurses [facility] Emergency Department [address] [place] [address] Phone #: ext- [phone] 03/28/2020 12:32 Patient: GOYO LEDESMA Sex: M : 1935 Age: 84y 13:52 03/28/20. Departure time: 13:52 03/28/2020. Condition at departure: improved. No learning barriers present. Discharge instructions provided and reviewed with the patient. Reviewed referral to a urologist and primary care physician for followup. Patient verbalized understanding. Written instructions provided in Spanish. The patient was discharged by the physician. He was discharged home. He left ambulatory and via private vehicle. Patient driving. --13:52 03/28/20 Zachary Joy 13:50 03/28/20. BP: 156/85. MAP: 108. HR: 80. RR: 16. O2 saturation: 98% on room air. Temp: 98.1 F. Pain level now: 0/10. --13:52 03/28/20 Zachary Joy.Locked/Released at 03/28/2020 13:57 by Zachary Joy, Name Value Range Interpretation Code Description Data Izabela rce(s) Supporting Document(s) ID Date Data Source [id number] 03/28/2020 12:54:00 PM EDT [facility] 1 Clinical Report - Physicians/Mid Levels [facility] Emergency Department [address] [place] [address] Phone #: ext- [phone] 03/28/2020 12:32 Patient: GOYO LEDESMA Sex: M : 1935 Age: 84y Time Seen: 12:33 03/28/2020. Arrived- By private vehicle. Historian- patient. Disposition decision: 13:38 03/28/2020.HISTORY OF PRESENT ILLNESS Chief Complaint: FELIPE PROBLEM. (Leaking felipe cath). This started today and is still present. The problem is described as mild. It was abrupt in onset. No penile discharge, discomfort with urination, urinary frequency, genital lesion or testicular pain. No urgency of urination or flank pain. Able to void. Not voiding only small amounts. The patient has had Felipe catheter problems (Leaking around catheter). Sexual history is noncontributory. Similar symptoms previously. Patient has had similar symptoms chronically. 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 Recent medical care: The patient was seen recently at another facility in the office. ( Seen at Dr. Camilo's office recently for Felipe change.).REVIEW OF SYSTEMSNo fever, chills, flank pain, [...] Neck supple. 2 Clinical Report - Physicians/Mid Levels [facility] Emergency Department [address] [place] [address] Phone #: ext- [phone] 03/28/2020 12:32 Patient: GOYO LEDESMA Sex: M : 1935 Age: 84y CVS: Heart sounds normal. Respiratory: No respiratory distress. Painless inspiration. Breath sounds normal. Abdomen: Soft and nontender. Bowel sounds normal. No organomegaly. No mass. Back: Normal external inspection. : Normal genitalia. Testes descended. Felipe catheter (Slight urine leak around catheter). Skin: [...] 153) 3 Clinical Report - Physicians/Mid Levels [facility] Emergency Department [address] [place] [address] Phone #: ext- [phone] 03/28/2020 12:32 Patient: GOYO LEDESMA Sex: M : 1935 Age: 84y POTASSIUM [...] cath 4 Clinical Report - Physicians/Mid Levels [facility] Emergency Department [address] [place] [address] Phone #: ext- [phone] 03/28/2020 12:32 Patient: GOYO LEDESMA Sex: M : 1935 Age: 84y without any resistance. So far no leakage is appreciated. Urinalysis and labs pending. 13:36 Mar 28 2020. Catheter is working well and not leaking. He wants to leave to go to his doctor's apptmt. at 14:00. Will discharge. Disposition: Discharged home in good and improved condition (13:38 Mar 28 2020). Condition: good.CLINICAL IMPRESSION Felipe catheter replacement (S/P leaking 16Fr. catheter on [...] tablet. Refills: 0. Substitution permitted. Pharmacy - [facility] - [address] [facility] ; [place], [place] [id number]. FaxNumber: . Understanding of the discharge instructions verbalized by patient. Follow- up with: Fidel Camilo M.D., Urology, , [address] [place] [address], [id number] Follow up as scheduled. Reason for referral: evaluation, treatment and Neurogenic bladder / Felipe replacements.(Electronically signed by Edgar Xavier, Physician 03/28/2020 22:22) Name Value Range Interpretation Code Description Data Izabela rce(s) Supporting Document(s) ID Date Data Source [id number] 03/28/2020 12:54:00 PM EDT [facility] VisitID: [id number] Date: 9:27urine culture grew gram negative rods, [...] rce(s) Supporting Document(s) ID Date Data Source [id number] 03/28/2020 01:20:00 PM EDT [facility] ([facility] Name Value Range Interpretation Code Description Data Izabela rce(s) Supporting Document(s) Culture Urine Laboratory test result [facility] ([facility] _CULTURE URINE_ ^$[id number] ^^[id number] $$[id number] ^^[id number] $$[id number] $$[id number] $$000129 $$885440 $$115674 $$303860 $$367141 $$869551 $$204453 $$112845 $$443088 $$520384 $$548033 $$354808 $$786059 $$347639 $$768042 $$839479 $$077105 $$055625 $$012384 $$466653 $$387515 ^^828746 $$839544 $$963206 $$500306 -- Continued on next page -- Patient: SCHWENDY GOYO F Order: [id number] Page 2 Culture: CULTURE URINE Status: Final -- Continued on next page -- Patient: SCHWENDY GOYO F Order: Page 2 Culture: CULTURE URINE Status: Prelim -- Continued on next page -- Patient: SCHWENDY GOYO F Order: [id number] Page 2 Culture: CULTURE URINE Status: Prelim -- Continued on next page -- Patient: CALLIE Young Order: [id number] Page 2 Culture: CULTURE URINE Status: Prelim $$[id number] $$[id number] REPORTED DATE/TIME: 04/03/2020 13:06 Culture: CULTURE URINE [...] braakii Flag: A Patient: CALLIE Young Order: [id number] Page 3 Culture: CULTURE URINE Status: Final [...] Trimethoprim/Sulfa S S P1 Test performed by: [employer] [facility] #: [id number] [address] [place] [id number] [facility] [id number] Supervisor Plasma : Ranjit Caldera MD NPI #: Family Assistant : -- Continued on next page -- Patient: CALLIE Young Order: [id number] Page 3 Culture: CULTURE URINE Status: Prelim 04/02/20.0623.XMT.SENT REF 04/02/20.0723.XMT.SENT REF 04/02/20.0935.XMT.SENT REF 04/03/20.1354.XMT.SENT REF 04/03/20.1354. .to MAN SUAREZ via fax ID Date Data Source [id number] 03/28/2020 01:20:00 PM EDT [facility] ([facility] Name Value Range Interpretation Code Description Data Izabela rce(s) Supporting Document(s) Comprehensive [employer] Laboratory test result [facility] ([facility] COMPREHENSIVE METABOLIC PANEL Sodium 136 meq/L 134-153 [facility] Chloride 101 meq/L 98-107 [facility] Potassium 4.9 meq/L 3.6-5.0 [facility] Glucose 136 mg/dL 65-110 Above high normal [facility] ([facility] BUN 37 mg/dL 7-21 Above high normal [facility] ([facility] Co2 26 meq/L 22-30 [facility] Total Protein 6.3 g/dL 6.3-8.2 [facility] ([facility] Creatinine 1.9 mg/dL 0.7-1.5 Above high normal [facility] ([facility] BUN/Creat 19 8-27 [facility] A/G Ratio 1.9 0.8-2.0 [facility] Calcium 9.0 mg/dL 8.4-10.2 [facility] Globulin 2.2 GM/DL 2.4-3.2 Below low normal [facility] ( [facility] Albumin 4.1 g/dL 3.9-5.0 [facility] Total Bili Laboratory test result 0.2-1.3 ME [facility] ([facility] Alkaline Phos 86 U/L 38-126 [facility] Sgot/Ast 19 U/L 5-40 [facility] SGPT/Alt 17 U/L 7-56 [facility] Age 84 yrs [facility] Anion Gap 9.0 mmol/L 8.0-16.0 [facility] Afr Amer GFR 44 mL/min [facility] Male GFR Interprentation 20-49 [...] mL/min Normal Non-Aa GFR 36 mL/min [facility] ID Date Data Source [id number] 03/28/2020 01:20:00 PM EDT [facility] ([facility] Name Value Range Interpretation Code Description Data Izabela rce(s) Supporting Document(s) Urinalysis Laboratory test result [facility] ([facility] URINALYSIS Source Laboratory test result [facility] ([facility] Clarity Laboratory test result [facility] ([facility] Spec [place] 1.010 1.001-1.030 [facility] ([facility] Color Laboratory test result [facility] ([facility] Glucose Laboratory test result [facility] ([facility] Bilirubin Laboratory test result ME [facility] ([facility] pH 6.5 5-9 [facility] Protein 100 Abnormal (applies to non-numeric res ults) [facility] ([facility] Ketone Laboratory test result [facility] ([facility] Nitrite Laboratory test result [facility] ([facility] Urobilinogen Laboratory test result [facility] ([facility] Blood 250 Abnormal (applies to non-numeric res ults) [facility] ([facility] Leuk Est 500 Abnormal (applies to non-numeric res ults) [facility] ([facility] WBC Laboratory test result Abnormal (applies to non -numeric results) [facility] ([facility] Microscopic Laboratory test result M [facility] ([facility] RBC Laboratory test result Abnormal (applies to non -numeric results) [facility] ([facility] Bacteria Laboratory test result Abnormal (applies to non -numeric results) [facility] ([facility] Epithelial Laboratory test result [facility] ([facility] ID Date Data Source [id number] 03/28/2020 01:20:00 PM EDT [facility] ([facility] Name Value Range Interpretation Code Description Data Izabela rce(s) Supporting Document(s) CBC W/Automated Diff Laboratory test result [facility] ([facility] COMPLETE BLOOD COUNT WBC 4.4 10^3/uL 4.2-11.0 [facility] ([facility] Hemoglobin 11.5 g/dL 14.0-16.0 Below low normal [facility] ( [facility] RBC 3.79 10^6/uL 4.50-6.30 Below low normal [facility] ([facility] MCH 30.3 pg 27.0-34.0 [facility] MCV 92.9 fL 80.0-94.0 [facility] Hematocrit 35.2 % 41.0-51.0 Below low normal [facility] ( [facility] RDW 12.2 % 11.5-14.8 [facility] Platelets 188 10^3/uL 150-450 [facility] MCHC 32.7 g/dL 31.0-36.0 [facility] Lymph 34.5 % 25.0-40.0 [facility] MPV 10.1 fL 7.4-10.4 [facility] Neut 48.6 % 37.0-80.0 [facility] Summit 10.6 % 3.0-8.0 Above high normal [facility] ([facility] Baso 0.9 % 0.0-2.0 [facility] Eos 5.2 % 0.0-7.0 [facility] %NRBC 0.0 % 0.0-0.0 [facility] #Neut 2.16 10^3/uL 2.00-6.90 [facility] %Ig 0.2 % 0.0-0.0 Above high normal [facility] #Lymph 1.53 10^3/uL 0.60-3.40 [facility] #Eos 0.23 10^3/uL 0.00-0.70 [facility] #Summit 0.47 10^3/uL 0.00-0.90 [facility] #NRBC 0.00 10^3/uL 0.00-0.00 [facility] #Ig 0.01 10^3/uL 0.00-0.10 [facility] #Baso 0.04 10^3/uL 0.00-0.20 [facility] Manual Diff Laboratory test result M [facility] ([facility] RBC Morph Laboratory test result ME [facility] ([facility] ID Date Data Source [id number] 04/03/2020 01:54:00 PM EDT [facility] Name Value Range Interpretation Code Description Data Izabela rce(s) Supporting Document(s) CULTURE URINE [facility] _CULTURE URINE_$$[id number]$$[id number]$$[id number]$$[id number]$$[id number]$$[id number]$$[id number]$$[id number]$$[id number]$$ [id number]$$[id number]$$[id number]$$[id number]$$[id number]$$[id number]$$[id number]$$[id number]$$109154$$[id number]$$ [id number]$$[id number]$$[id number]$$649371$$495340$$650374$$[id number]$$[id number] -- Continued on next page --Patient: CALLIE NANCE F Order: [id number] Page 2Culture: CULTURE URINE Status: Final ==== -- Continued on next page --Patient: CALLIE NANCE F Order: [id number] Page 2Culture: CULTURE URINE Status: Prelim ===== -- Continued on next page --Patient: CALLIE NANCE F Order: [id number] Page 2Culture: CULTURE URINE Status: Prelim ===== -- Continued on next page --Patient: CALLIE NANCE F Order: [id number] Page 2Culture: CULTURE URINE Status: Prelim =====$$[id number] DATE/TIME: 04/03/2020 13:06Culture: CULTURE URINE Status: FinalIsolate 1 Pseudomonas aeruginosa Flag: A . . . . . . .5Greater than 100,000 colony forming units per mL Previous result entered on 04/02/2020 07:17 ET Gram negative rods Previous result entered on 04/01/2020 11:15 ET Gram negative rods Previous result entered on 03/31/2020 05:40 ET Gram negative rodsUrine Culture,Comprehensive: [id number] aeruginosa Flag: AIsolate 2 Citrobacter braakii Flag: A . . . . . . .150,000-100,000 colony forming units per mL Previous result entered on 04/02/2020 07:17 ET Gram negative rods25,000-50,000 colony forming units per mLCitrobacter braakii Flag: APatient: CALLIE GOYO Hannah Order: [id number] Page 3Culture: CULTURE URINE Status: Final ISOLATE [...] Trimethoprim/Sulfa S S P1 Test performed by: [facility] Chris HERB #: [id number] [address] [place] [address] [id number] [facility] [id number] Director : Ranjit Caldera MD NPI #:Family Assistant : -- Continued on next page --Patient: CALLIE Young Order: [id number] Page 3Culture: CULTURE URINE Status: Prelim ===== 04/02/20.0623.XMT.SENT REF 04/02/20.0723.XMT.SENT REF 04/02/20.0935.XMT.SENT REF 04/03/20.1354.XMT.SENT REF 04/03/20.1354.MD .to MAN SUAREZ via fax ID Date Data Source [id number] 03/28/2020 02:02:00 PM EDT [facility] Name Value Range Interpretation Code Description Data Izabela rce(s) Supporting Document(s) COMPREHENSIVE METABOLIC PANEL [facility] COMPREHENSIVE METABOLIC PANEL Sodium [Moles/volume] in Serum or Plasma 136 mEq/L 134 - 153 [facility] Potassium [Moles/volume] in Serum or Plasma 4.9 mEq/L 3.6 - 5.0 [facility] Chloride [Moles/volume] in Serum or Plasma 101 mEq/L 98 - 107 [facility] Carbon dioxide, total [Moles/volume] in Serum or Plasma 26 MEQ/L 22 - 30 [facility] Glucose [Mass/volume] in Serum or Plasma 136 MG/DL 65 - 110 H [facility] BUN 37 MG/DL 7 - 21 [facility] Creatinine [Mass/volume] in Serum or Plasma 1.9 MG/DL 0.7 - 1.5 H [facility] BUN/CREAT 19 8 - 27 [facility] Protein [Mass/volume] in Serum or Plasma 6.3 G/DL 6.3 - 8.2 [facility] Albumin [Mass/volume] in Serum or Plasma 4.1 G/DL 3.9 - 5.0 [facility] Globulin [Mass/volume] in Serum by calculation 2.2 GM/DL 2.4 - 3.2 L [facility] A/G RATIO 1.9 0.8 - 2.0 [facility] Calcium [Mass/volume] in Serum or Plasma 9.0 MG/DL 8.4 - 10.2 [facility] Bilirubin.total [Mass/volume] in Serum or Plasma <0.7 MG/DL 0.2 - 1.3 [facility] Alkaline phosphatase [Enzymatic activity/volume] in Serum or Plasma 86 U/L 38 - 126 [facility] Aspartate aminotransferase [Enzymatic activity/volume] in Serum or Plasma 19 U/L 5 - 40 [facility] Alanine aminotransferase [Enzymatic activity/volume] in Seru m or Plasma 17 U/L 7 - 56 [facility] Anion gap 3 in Serum or Plasma 9.0 mmol/L 8.0 - 16.0 [facility] AGE 84 yrs [facility] NON-AA GFR 36 mL/min [facility] AFR AMER GFR 44 mL/min [facility] Male GFR In terprentation 20-49 [...] >32 mL/min Normal ID Date Data Source [id number] 03/28/2020 01:58:00 PM EDT [facility] Name Value Range Interpretation Code Description Data Izabela rce(s) Supporting Document(s) URINALYSIS [facility] URINALYSIS SOURCE R [facility] COLOR yellow NORMAL: Yellow [facility] CLARITY hazy NORMAL: Clear [facility] Specific gravity of Urine by Test strip 1.010 1.001 - 1.030 [facility] pH 6.5 5 - 9 [facility] Glucose [Mass/volume] in Urine by Test strip NORM NORMAL: Negat asuncion [facility] Bilirubin.total [Presence] in Urine by Test strip NEG NORMAL: Negative [facility] Ketones [Presence] in Urine by Test strip NEG NORMAL: Negative [facility] Protein [Mass/volume] in Urine by Test strip 100 NORMAL: Negat asuncion [facility] Nitrite [Presence] in Urine by Test strip NEG NORMAL: Negative [facility] BLOOD 250 NORMAL: Negative [facility] Leukocyte esterase [Presence] in Urine by Test strip 500 MICHELLE L: Negative [facility] Urobilinogen [Mass/volume] in Urine by Test strip NOR less brittany n 1.0 mg/dL [facility] MICROSCOPIC See Below [facility] ital WBC TNTC NORMAL: NONE SEEN A [facility] Erythrocytes [#/volume] in Urine by Test strip 10 - 15 NORMAL: NON E SEEN A [facility] EPITHELIAL FEW NORMAL: NONE SEEN [facility] Bacteria [Presence] in Urine sediment by Light microscopy 2+ MOD NORMAL: NONE SEEN A [facility] ID Date Data Source [id number] 03/28/2020 01:43:00 PM EDT [facility] Name Value Range Interpretation Code Description Data Izabela rce(s) Supporting Document(s) CBC W/AUTOMATED DIFF [facility] COMPLETE BLOOD COUNT Leukocytes [#/volume] in Blood by Automated count 4.4 10^3/uL 4.2 - 1 1.0 [facility] Erythrocytes [#/volume] in Blood by Automated count 3.79 10^6/uL 4. 50 - 6.30 L [facility] Hemoglobin [Mass/volume] in Blood 11.5 g/dL 14.0 - 16.0 L [facility] Hematocrit [Volume Fraction] of Blood by Automated count 35.2 % 4 1.0 - 51.0 L [facility] Erythrocyte mean corpuscular volume [Entitic volume] by Auto mated count 92.9 fL 80.0 - 94.0 [facility] Erythrocyte mean corpuscular hemoglobin [Entitic mass] by Automated count 30.3 pg 27.0 - 34.0 [facility] Erythrocyte mean corpuscular hemoglobin concentration [Mass/volume] by Automated count 32.7 g/dL 31.0 - 36.0 [facility] Erythrocyte distribution width [Ratio] by Automated count 12.2 % 11.5 - 14.8 [facility] Platelets [#/volume] in Blood by Automated count 188 10^3/uL 150 - 45 0 [facility] Platelet mean volume [Entitic volume] in Blood by Automated count 10.1 fL 7.4 - 10.4 [facility] Neutrophils/100 leukocytes in Blood by Automated count 48.6 % 37. 0 - 80.0 [facility] Lymphocytes/100 leukocytes in Blood by Manual count 34.5 % 25.0 - 40.0 [facility] Monocytes/100 leukocytes in Blood by Automated count 10.6 % 3.0 - 8.0 H [facility] Eosinophils/100 leukocytes in Blood by Automated count 5.2 % 0.0 - 7.0 [facility] Basophils/100 leukocytes in Blood by Automated count 0.9 % 0.0 - 2.0 [facility] %IG 0.2 % 0.0 - 0.0 H [facility] %NRBC 0.0 % 0.0 - 0.0 [facility] al Neutrophils [#/volume] in Blood by Automated count 2.16 10^3/uL 2.00 - 6.90 [facility] Lymphocytes [#/volume] in Blood by Automated count 1.53 10^3/uL 0.60 - 3.40 [facility] Monocytes [#/volume] in Blood by Automated count 0.47 10^3/uL 0.00 - 0.90 [facility] Eosinophils [#/volume] in Blood by Automated count 0.23 10^3/uL 0.00 - 0.70 [facility] Basophils [#/volume] in Blood by Automated count 0.04 10^3/uL 0.00 - 0.20 [facility] #IG 0.01 10^3/uL 0.00 - 0.10 [facility] #NRBC 0.00 10^3/uL 0.00 - 0.00 [facility] MANUAL DIFF NOT INDICATED [facility] RBC MORPH NOT INDICATED [facility] Procedure Social History Code Duration Value Status Description Data Source(s ) Smoking 01/02/2021 12:00:00 AM EDT Patient has never smoked co mpleted Patient has never smoked [facility] ([facility] Smoking 12/25/2020 12:00:00 AM EDT Never Smoked Cigars complet ed Never Smoked Cigars [facility] ([facility]) Alcohol intake 06/14/2020 12:00:00 AM EST Current drinker of al cohol (finding) completed Current drinker of alcohol (finding) [facility] Tobacco use and exposure 06/14/2020 12:00:00 AM EST Never used co mpleted Never used [facility] Smoking 06/14/2020 12:00:00 AM EST Never smoker completed Never s [facility] Vital Signs ID Date Data Source UNK Name Value Range Interpretation Code Description Data Source(s) Systolic blood pressure 118 mm[Hg] 118 mm[Hg] M [facility] ([facility] Diastolic blood pressure 78 mm[Hg] 78 mm[Hg] [facility] ([facility] Body temperature 97.3 [degF] 97.3 [degF] [facility] ([facility] Heart rate 74 /min 74 /min [facility] ([facility] Respiratory rate 18 /min 18 /min [facility] ( [facility] Body height 62 [in_i] 62 [in_i] [facility] ([facility] 5'2" Body weight 135.00 [lb_av] 135.00 [lb_av] [facility] ([facility] Weed body weight 118 [lb_av] 118 [lb_av] [facility] ([facility] Body mass index (BMI) [Ratio] 24.7 kg/m2 24.7 k g/m2 [facility] ([facility] Oxygen saturation in Arterial blood by Pulse oximetry 99 % 99 % [facility] ([facility] ([place]), (Room Air) Oxygen saturation in Arterial blood by Pulse oximetry 99 % 99 % [facility] ([facility]) Systolic blood pressure 116 mm[Hg] 116 mm[Hg] M [facility] ([facility]) Diastolic blood pressure 70 mm[Hg] 70 mm[Hg] [facility] ([facility]) Heart rate 81 /min 81 /min [facility] ([facility]) Body temperature 97.1 [degF] 97.1 [degF] [facility] ([facility]) Systolic blood pressure 128 mm[Hg] 128 mm[Hg] M [facility] ([facility]) Diastolic blood pressure 81 mm[Hg] 81 mm[Hg] [facility] ([facility]) Heart rate 76 /min 76 /min [facility] ([facility] Respiratory rate 16 /min 16 /min [facility] ( [facility] Body height 62 [in_i] 62 [in_i] [facility] ([facility] 5'2" Weed body weight 118 [lb_av] 118 [lb_av] [facility] ([facility] Body mass index (BMI) [Ratio] 24.9 kg/m2 24.9 k g/m2 [facility] ([facility] Oxygen saturation in Arterial blood by Pulse oximetry 96 % 96 % [facility] ([facility] Body weight 136.00 [lb_av] 136.00 [lb_av] [facility] ([facility] Systolic blood pressure 116 mm[Hg] 116 mm[Hg] M [facility] ([facility] Diastolic blood pressure 74 mm[Hg] 74 mm[Hg] [facility] ([facility] Body temperature 97.9 [degF] 97.9 [degF] [facility] ([facility] Respiratory rate 20 /min 20 /min [facility] ( [facility]) Oxygen saturation in Arterial blood by Pulse oximetry 94 % 94 % [facility] ([facility]) Systolic blood pressure 118 mm[Hg] 118 mm[Hg] M [facility] ([facility]) Diastolic blood pressure 66 mm[Hg] 66 mm[Hg] [facility] ([facility]) Heart rate 80 /min 80 /min [facility] ([facility]) Body temperature 96.9 [degF] 96.9 [degF] [facility] ([facility]) Body weight 136.25 [lb_av] 136.25 [lb_av] [facility] ([facility]) Body weight 61.803 kg 61.803 kg [facility] ([facility]) Systolic blood pressure 110 mm[Hg] 110 mm[Hg] M [facility] ([facility] Diastolic blood pressure 52 mm[Hg] 52 mm[Hg] [facility] ([facility] Body temperature 97.1 [degF] 97.1 [degF] [facility] ([facility] Heart rate 90 /min 90 /min [facility] ([facility] Respiratory rate 18 /min 18 /min [facility] ( [facility] Body height 62 [in_i] 62 [in_i] [facility] ([facility] 5'2" Body weight 136.00 [lb_av] 136.00 [lb_av] [facility] ([facility] Weed body weight 118 [lb_av] 118 [lb_av] [facility] ([facility] Body mass index (BMI) [Ratio] 24.9 kg/m2 24.9 k g/m2 [facility] ([facility] Oxygen saturation in Arterial blood by Pulse oximetry 96 % 96 % [facility] ([facility] Body height 62 [in_i] 62 [in_i] [facility] ([facility] 5'2" Body weight 139.00 [lb_av] 139.00 [lb_av] [facility] ([facility] Systolic blood pressure 112 mm[Hg] 112 mm[Hg] M [facility] ([facility] Diastolic blood pressure 72 mm[Hg] 72 mm[Hg] [facility] ([facility] Heart rate 72 /min 72 /min [facility] ([facility] Body mass index (BMI) [Ratio] 25.4 kg/m2 25.4 k g/m2 [facility] Systolic blood pressure 120 mm[Hg] 120 mm[Hg] M [facility] ([facility] Diastolic blood pressure 70 mm[Hg] 70 mm[Hg] [facility] ([facility] Body temperature 97.7 [degF] 97.7 [degF] [facility] ([facility] Body height 62 [in_i] 62 [in_i] [facility] ([facility] 5'2" Body weight 135.00 [lb_av] 135.00 [lb_av] [facility] ([facility] Weed body weight 118 [lb_av] 118 [lb_av] [facility] ([facility] Body mass index (BMI) [Ratio] 24.7 kg/m2 24.7 k g/m2 [facility] ([facility] Respiratory rate 16 /min 16 /min [facility] ( [facility] Heart rate 73 /min 73 /min [facility] ([facility] Oxygen saturation in Arterial blood by Pulse oximetry 96 % 96 % [facility] ([facility] Systolic blood pressure 112 mm[Hg] 112 mm[Hg] M [facility] ([facility]) Diastolic blood pressure 62 mm[Hg] 62 mm[Hg] [facility] ([facility]) Heart rate 101 /min 101 /min [facility] ([facility]) Respiratory rate 20 /min 20 /min [facility] ( [facility]) Oxygen saturation in Arterial blood by Pulse oximetry 94 % 94 % [facility] ([facility]) Systolic blood pressure 126 mm[Hg] 126 mm[Hg] M [facility] ([facility] Diastolic blood pressure 70 mm[Hg] 70 mm[Hg] [facility] ([facility] Body temperature 98.1 [degF] 98.1 [degF] [facility] ([facility] Heart rate 78 /min 78 /min [facility] ([facility] Respiratory rate 16 /min 16 /min [facility] ( [facility] Body height 62 [in_i] 62 [in_i] [facility] 5'2" Body weight 139.00 [lb_av] 139.00 [lb_av] [facility] ([facility] Weed body weight 118 [lb_av] 118 [lb_av] [facility] ([facility] Body mass index (BMI) [...] Body height 62 [in_i] 62 [in_i] [facility] ([facility] 5'2" Body weight 133.00 [lb_av] 133.00 [lb_av] [facility] ([facility] Weed body weight 118 [lb_av] 118 [lb_av] [facility] ([facility] Body mass index (BMI) [Ratio] 24.3 kg/m2 24.3 k g/m2 [facility] ([facility] Oxygen saturation in Arterial blood by Pulse oximetry 99 % 99 % [facility] ([facility] Heart rate 90 /min 90 /min [facility] ([facility] Respiratory rate 18 /min 18 /min [facility] ( [facility] Body height 62 [in_i] 62 [in_i] [facility] ([facility] 5'2" Body mass index (BMI) [Ratio] 20.8 kg/m2 20.8 k g/m2 [facility] ([facility] Body weight 114.00 [lb_av] 114.00 [lb_av] [facility] ([facility] Weed body weight 118 [lb_av] 118 [lb_av] [facility] T ([facility] Oxygen saturation in Arterial blood by Pulse oximetry 97 % 97 % [facility] ([facility] Systolic blood pressure 110 mm[Hg] 110 mm[Hg] M [facility] ([facility] Diastolic blood pressure 80 mm[Hg] 80 mm[Hg] [facility] ([facility] Body temperature 97.6 [degF] 97.6 [degF] [facility] ([facility] Systolic blood pressure 129 mm[Hg] 129 mm[Hg] M [facility] ([facility]) Diastolic blood pressure 75 mm[Hg] 75 mm[Hg] [facility] ([facility]) Heart rate 90 /min 90 /min [facility] ([facility]) Body temperature 97.3 [degF] 97.3 [degF] [facility] ([facility]) Respiratory rate 14 /min 14 /min [facility] ( [facility]) Oxygen saturation in Arterial blood by Pulse oximetry 98 % 98 % [facility] ([facility]) Body weight 128.00 [lb_av] 128.00 [lb_av] [facility] ([facility]) Body weight 58.061 kg 58.061 kg [facility] ([facility]) Body temperature 97.5 [degF] 97.5 [degF] [facility] ([facility]) Respiratory rate 16 /min 16 /min [facility] ( [facility]) Oxygen saturation in Arterial blood by Pulse oximetry 95 % 95 % [facility] ([facility]) Systolic blood pressure 172 mm[Hg] 172 mm[Hg] M [facility] ([facility]) Heart rate 88 /min 88 /min [facility] ([facility]) Diastolic blood pressure 93 mm[Hg] 93 mm[Hg] [facility] ([facility]) Systolic blood pressure 147 mm[Hg] 147 mm[Hg] M [facility] ([facility]) Diastolic blood pressure 80 mm[Hg] 80 mm[Hg] [facility] ([facility]) Heart rate 90 /min 90 /min [facility] ([facility]) Body temperature 97.3 [degF] 97.3 [degF] [facility] ([facility]) Respiratory rate 16 /min 16 /min [facility] ( [facility]) Oxygen saturation in Arterial blood by Pulse oximetry 94 % 94 % [facility] ([facility]) Body weight 143.00 [lb_av] 143.00 [lb_av] [facility] ([facility]) Body weight 64.865 kg 64.865 kg [facility] ([facility]) Systolic blood pressure 128 mm[Hg] 128 [...] Body height 62 [in_i] 62 [in_i] [facility] ([facility] 5'2" Body weight 148.00 [lb_av] 148.00 [lb_av] [facility] ([facility] Weed body weight 118 [lb_av] 118 [lb_av] [facility] ([facility] Body mass index (BMI) [Ratio] 27.1 kg/m2 27.1 k g/m2 [facility] ([facility] Oxygen saturation in Arterial blood by Pulse oximetry 98 % 98 % [facility] ([facility] Systolic blood pressure 140 mm[Hg] 140 mm[Hg] M [facility] ([facility]) Diastolic blood pressure 67 mm[Hg] 67 mm[Hg] [facility] ([facility]) Heart rate 77 /min 77 /min [facility] ([facility]) Respiratory rate 20 /min 20 /min [facility] ( [facility]) Oxygen saturation in Arterial blood by Pulse oximetry 96 % 96 % [facility] ([facility]) Systolic blood pressure 136 mm[Hg] 136 mm[Hg] M [facility] ([facility] Diastolic blood pressure 70 mm[Hg] 70 mm[Hg] [facility] ([facility] Body temperature 98.0 [degF] 98.0 [degF] [facility] ([facility] Heart rate 88 /min 88 /min [facility] ([facility] Respiratory rate 16 /min 16 /min [facility] ( [facility] Body height 62 [in_i] 62 [in_i] [facility] ([facility] 5'2" Body weight 142.00 [lb_av] 142.00 [lb_av] [facility] T ([facility] Weed body weight 118 [lb_av] 118 [lb_av] [facility] ([facility] Body mass index (BMI) [Ratio] 26.0 kg/m2 26.0 k g/m2 [facility] ([facility] Oxygen saturation in Arterial blood by Pulse oximetry 96 % 96 % [facility] ([facility] Systolic blood pressure 123 mm[Hg] 123 mm[Hg] M [facility] ([facility]) Diastolic blood pressure 68 mm[Hg] 68 mm[Hg] [facility] ([facility]) Heart rate 73 /min 73 /min [facility] ([facility]) Respiratory rate 22 /min 22 /min [facility] ( [facility]) Oxygen saturation in Arterial blood by Pulse oximetry 95 % 95 % [facility] ([facility]) ID Date Data Source [id number] 04/02/2021 08:30:38 AM EDT [facility] Name Value Range Interpretation Code Description Data Source(s) WEIGHT RECORDED 135.00 pounds 135.00 pounds [facility] Height 60 Inches 060 Inches [facility] ID Date Data Source [id number] 02/20/2021 10:08:57 AM EDT [facility] Name Value Range Interpretation Code Description Data Source(s) WEIGHT RECORDED 125.00 pounds 125.00 pounds [facility] Height 60 Inches 060 Inches [facility] ID Date Data Source [id number] 11/06/2020 08:05:04 PM EDT [facility] Name Value Range Interpretation Code Description Data Source(s) WEIGHT RECORDED 139.00 pounds 139.00 pounds [facility] Height 65 Inches 065 Inches [facility] ID Date Data Source [id number] 08/17/2020 04:26:53 PM [facility] Name Value Range Interpretation Code Description Data Source(s) WEIGHT RECORDED 130.00 pounds 130.00 pounds [facility] Height 60 Inches 060 Inches [facility] ID Date Data Source [id number] 06/26/2020 04:03:32 PM [facility] Name Value Range Interpretation Code Description Data Source(s) WEIGHT RECORDED 145.5 lb 145.5 lb [facility] Body height Measured 63 in 63 in [facility] TRANSFER FROM [facility] Patient Treatment Plan of Care Planned Activity Planned Date Details Description Data Source (s) Magnesium Oxide 400 MG Oral Tablet 06/21/2020 12:00:00 AM [facility] dextrose 50 % IV solution 25 mL 06/14/2020 07:48:04 PM [facility] Glucagon 1 MG Injection 06/14/2020 05:08:00 PM [facility] Glucose 0.417 MG/MG Oral Gel 06/14/2020 05:08:00 PM [facility] Metformin hydrochloride 500 MG Oral Tablet 11/16/2019 12:00:00 AM [facility] [facility] Lisinopril 5 MG Oral Tablet 06/02/2019 12:00:00 AM [facility]
[2021-05-01 13:55] VITALS: BP 158/87
--- NOTE | 2021-05-01 14:16 | REP ---
INDICATION: N. COMPARISON: 06/13/2020 also portable TECHNIQUE: Portable FINDINGS: The technique utilized in obtaining the radiograph has magnified the cardiac silhouette and accentuated the interstitial markings. There is cardiomegaly accentuated by technique. The increased interstitial and airspace opacities seen on the prior exam have resolved. The pleural angles remain sharp. There is no change in the osseous structures IMPRESSION: Cardiomegaly without evidence of acute cardiopulmonary disease. <Electronically signed by Sameer Zaidi > 05/01/21 [id number]
[2021-05-01 14:25] LABS: BASO % 0.2 % (0.0-1.0); HEMATOCRIT 30.2 % (42.0-52.0); HEMOGLOBIN 9.6 g/dl (13.5-17.5); LYMPH # 0.8 10^3/uL (1.5-5.0); LYMPH % 12.5 % (24.0-44.0); MEAN CORPUSCULAR HEMOGLOBIN 27.4 pg (27.0-33.0); MEAN CORPUSCULAR HGB CONC 31.8 g/dl (32.0-36.5); MONO # 0.6 10^3/uL (0.0-0.8); MONO % 9.3 % (2.0-8.0); NEUTROPHILS # 5.1 10^3/uL (1.5-8.5); NEUTROPHILS % 77.7 % (36.0-66.0); PLATELET COUNT, AUTOMATED 328 10^3/uL (150-450); RED BLOOD COUNT 3.51 10^6/uL (4.30-6.10); WHITE BLOOD COUNT 6.6 10^3/uL (4.0-10.0)
[2021-05-01 14:48] LABS: BILIRUBIN,TOTAL 0.4 MG/DL (0.2-1.0); C REACTIVE PROTEIN QUANTITATIV 2.49 MG/DL (0.00-0.30); CALCIUM LEVEL 8.7 MG/DL (8.8-10.2); CREATININE FOR GFR 2.02 MG/DL (0.70-1.30); GLOMERULAR FILTRATION RATE 33.6 (>35); POTASSIUM SERUM 3.9 MEQ/L (3.5-5.1); TOTAL PROTEIN 6.2 GM/DL (6.4-8.2)
[2021-05-01 14:50] LABS: CK-MB VALUE MASS 23.6 NG/ML (<3.6); MB/CK RELATIVE INDEX 5.43 (< OR =4); TROPONIN I 0.11 NG/ML (< 0.10)
[2021-05-01 14:54] LABS: ERYTHROCYTE SEDIMENTATION RATE 27 mm/hr (0-20)
[2021-05-01] MEDS ORDERED: DEXTROSE 50% 50 ML SYRINGE IV PRN (15:00)
[2021-05-01] MEDS ORDERED: ACETAMINOPHEN TAB 650MG DOSE (2X325MG) PO PRN (15:00)
[2021-05-01] MEDS ORDERED: ONDANSETRON 4MG/2ML VIAL IV PRN (15:00)
[2021-05-01] MEDS ORDERED: GLUCAGON INJ 1MG VIAL SC PRN (15:00)
[2021-05-01] MEDS ORDERED: GLUCOSE 4GM CHEW TABLET PO PRN (15:00)
--- NOTE | 2021-05-01 15:12 | HPEPDOC ---
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 Patient was last seen by the cancer Center 1 year ago and had failed to follow- up. He had recently presented to the ER on 04/29 with nausea and vomiting. He is also reported chronic diarrhea since November. Patient has reported over the last few days it has become greasy like. Upon evaluation in the emergency room. Imaging had suggested metastatic spread of his underlying cancer. Patient was instructed to follow-up with his oncologist on discharge. Patient followed up with [facility] 05/01, today and was subsequently directly admitted to the hospitalist service. Currently patient denies any chest pain, short of breath or cough. He denies any nausea at the moment but did report vomiting yesterday evening 2 times without any evidence of blood. He reported that yesterday evening he ate oatmeal. He reports lower abdominal discomfort that radiates to the back. Patient denies any fevers or chills at home. Reports a poor appetite and some weight loss. 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 [employer] Review of Systems: 10 point review of systems complete, all negative otherwise stated in HPI Physical exam: - Vitals: BP [158/87], HR [76], RR [20], Sat [98%RA], Temp [98.3F] - General: Lying in bed, No acute distress, Speaking in full sentences, AAOx3 - HEENT: NC, AT, PERRLA - CVS: RRR, +S1S2, - Murmurs / rubs / gallops - Lungs: Fair air entry bilaterally, No appreciable wheezing / rales / rhonchi - Abdomen: Soft, Mildly distended, tenderness at bilateral lower quadrants - Extremities: 2+ pitting edema bilaterally, No calf tenderness - Neuro: No focal motor or sensory deficit - Skin: No visible rashes Labs: See below Imaging: Duplex US 04/29: There is no ultrasonographic evidence of deep venous thrombosis involving any of the visualized deep venous structures of the left lower extremity as described above. CT abdomen / pelvis 04/29: 1. 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 2. Incomplete poorly evaluated changes to the bladder/prostate gland and rectosigmoid. CXR 05/01: Cardiomegaly without evidence of acute cardiopulmonary disease. 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 However, had refused in the past - Patient was also instructed to have a radical prostatectomy, however, had refused this when it was offered - Imaging recently completed does reveal evidence of hepatic lesions suggestive of metastatic spread - Called and discussed with Dr. Trejo; unfortunately not a good candidate for intervention / chemotherapy Prostate CA - s/p Radiation NIDDM2 - Will start ISS - Will start clear liquid diet for now CKD3 / Bilateral nephrostomy tubes - 2/2 obstructive nephropathy - Patient appears grossly volume overloaded - Baseline Cr from 04/04/2021 was noted to be 1.9 - Cr currently appears to be close to baseline - Will consult Nephrology GERD - c/w home medications DVT prophylaxis - Will start heparin Code status: - Discussed CODE STATUS with patient - Currently, patient would like to have full resuscitation efforts Disposition: - Discussed with daughter; Criss Judd about goals of care; understands extremely poor prognosis - Discussed with ; Ayse Nuñez about goals of care; understands extremely poor prognosis - Discussed code status with patient; unsure of how to proceed about code status Vital Signs Vital Signs Date Time Temp Pulse Resp B/P (MAP) Pulse Ox O2 Delivery O2 Flow Rate FiO2 05/01/21 13:55 98.3 76 20 158/87 (110) 98 Laboratory Data Labs 24H Laboratory Tests 2 05/01/21 13:51: Coronavirus (COVID-19)(PCR) NEGATIVE 05/01/21 14:10: Immature Granulocyte % (Auto) 0.3, Neutrophils (%) (Auto) 77.7H, Lymphocytes (%) (Auto) 12.5L, Monocytes (%) (Auto) 9.3H, Eosinophils (%) (Auto) 0.0, Basophils (%) (Auto) 0.2, Neutrophils # (Auto) 5.1, Lymphocytes # (Auto) 0.8L, Monocytes # (Auto) 0.6, Eosinophils # (Auto) 0.0, Basophils # (Auto) 0.0, Nucleated Red Blood Cells % (auto) 0.0, Erythrocyte Sedimentation Rate 27H, Anion Gap 9, Glomerular Filtration Rate 33.6L, Lactic Acid Level 0.9, Calcium Level 8.7L, Total Bilirubin 0.4, Aspartate Amino Transf (AST/SGOT) 40H, Alanine Aminotransferase (ALT/SGPT) 42, Alkaline Phosphatase 112, Total Creatine Kinase 435H, Creatine Kinase MB 23.6H, Creatine Kinase MB Relative Index 5.43H, Troponin I 0.11H, C-Reactive Protein, Quantitative 2.49H, Total Protein 6.2L, Albumin 3.0L, Albumin/Globulin Ratio 0.9, Amylase Level 15L, Lipase 46L CBC/BMP Laboratory Tests 05/01/21 14:10 Home Medications Scheduled Hydroxyzine HCl (Hydroxyzine HCl) 25 Mg Tablet, 25 MG PO QHS Pantoprazole Sodium (Pantoprazole Sodium) 40 Mg Tablet.dr, 40 MG PO DAILY Scheduled PRN Diphenoxylate HCl/Atropine (Diphenoxylate-Atrop 2.5-0.025) 1 Each Tablet, 1 TAB PO DAILY PRN for DIARRHEA Ondansetron (Ondansetron Odt) 4 Mg Tab.rapdis, 1 TAB PO Q6-8HP PRN for nausea/vomiting Tramadol HCl (Tramadol HCl) 50 Mg Tablet, 50 MG PO BID PRN for PAIN LEVEL 4-7 Allergies Coded Allergies: No Known Allergies (Unverified , 06/13/20) SANA DOMINGUEZ MD May 01, 2021 15:12
--- NOTE | 2021-05-01 16:09 | REP ---
INDICATION: SWETHA on CKD3. COMPARISON: None. FINDINGS: Multiple ultrasonographic images of the right kidney show the right kidney to measure 9.4 x 4.3 x 3.6 cm. The renal cortical echotexture is increased. There is a complex appearing 2.4 x 2.6 x 2.6 cm sized cystic structure in the inferior pole. There is nearly non-existent corticomedullary differentiation. There is moderate hydronephrosis. There are no perinephric fluid collections. The left kidney is not identified There is ascites. There is a potential 3 cm sized lesion seen in the liver but in a limited fashion on this renal ultrasound exam IMPRESSION: 1. The left kidney is not visualized. 2. Moderate right-sided hydronephrosis with evidence of medical renal disease. 3. Other findings as described above. Contrast-enhanced CT is recommended. <Electronically signed by Sameer Zaidi > 05/01/21 [id number]
[2021-05-01] MEDS ORDERED: HOME MED LIST COMPLETE! XX SCH (16:30)
[2021-05-01 17:20] LABS: CREATININE,RANDOM URINE 61.3 MG/DL; OSMOLALITY URINE 320 MOSM/KG (50-1400); SODIUM,RANDOM URINE 49 MEQ/L; UREA NITROGEN RANDOM URINE 383 MG/DL
[2021-05-01] MEDS: HumaLOG INSULIN (NovoLOG) PER UNIT SC SCH ×2 (17:30→21:00)
[2021-05-01 22:00] VITALS: BP 148/76
[2021-05-01] MEDS: PANTOPRAZOLE 40MG VIAL (C9113 PER 1) IV SCH (22:06)
[2021-05-01] MEDS: traMADol 50 MG TAB PO PRN (22:06)
[2021-05-01] MEDS: HEPARIN SOD (PORCINE) 5000UNITS/ML 1ML VIAL/SYRINGE SC SCH (22:07)
[2021-05-01] MEDS: hydrOXYzine 25 MG TAB PO SCH (22:07)
[2021-05-02] MEDS: HEPARIN SOD (PORCINE) 5000UNITS/ML 1ML VIAL/SYRINGE SC SCH ×3 (05:13→21:11)
[2021-05-02 06:00] VITALS: BP 142/79
[2021-05-02] MEDS: HumaLOG INSULIN (NovoLOG) PER UNIT SC SCH ×4 (07:30→21:00)
[2021-05-02 08:27] LABS: BASO % 0.2 % (0.0-1.0); EOS % 0.7 % (0.0-3.0); HEMOGLOBIN 9.3 g/dl (13.5-17.5); LYMPH # 1.2 10^3/uL (1.5-5.0); LYMPH % 20.3 % (24.0-44.0); MEAN CORPUSCULAR HEMOGLOBIN 27.6 pg (27.0-33.0); MEAN CORPUSCULAR HGB CONC 32.1 g/dl (32.0-36.5); MEAN CORPUSCULAR VOLUME 86.1 fl (80.0-96.0); MONO # 0.7 10^3/uL (0.0-0.8); MONO % 12.3 % (2.0-8.0); NEUTROPHILS # 3.8 10^3/uL (1.5-8.5); NEUTROPHILS % 66.1 % (36.0-66.0); PLATELET COUNT, AUTOMATED 319 10^3/uL (150-450); RED BLOOD COUNT 3.37 10^6/uL (4.30-6.10); WHITE BLOOD COUNT 5.7 10^3/uL (4.0-10.0)
--- NOTE | 2021-05-02 08:29 | ECGEPIP ---
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
[2021-05-02 08:56] LABS: CALCIUM LEVEL 8.4 MG/DL (8.8-10.2); CREATININE FOR GFR 2.04 MG/DL (0.70-1.30); GLOMERULAR FILTRATION RATE 33.2 (>35); MAGNESIUM LEVEL 2.4 MG/DL (1.8-2.4); POTASSIUM SERUM 3.3 MEQ/L (3.5-5.1)
[2021-05-02] MEDS: KCL 10MEQ/100ML SWI (KRUN) 10 MEQ in IV 1 EA IV SCH ×2 (10:59→11:15)
[2021-05-02] MEDS: traMADol 50 MG TAB PO PRN ×2 (11:15→21:11)
--- NOTE | 2021-05-02 12:07 | REP ---
INDICATION: Ascites COMPARISON: None. TECHNIQUE: Real time helms scale ultrasound examination using curved array transducer. FINDINGS: Limited examination through the abdomen and pelvis demonstrates very minimal amount of ascites insufficient for safe paracentesis. IMPRESSION: Very minimal amount of ascites. <Electronically signed by Cirilo Daley > 05/02/21 [id number]
[2021-05-02] MEDS ORDERED: FUROSEMIDE 40MG/4ML VIAL (J1940) IV ONE (12:15)
[2021-05-02] MEDS ORDERED: POTASSIUM CHLORIDE 10MEQ SR TABLET PO ONE (12:15)
--- NOTE | 2021-05-02 13:12 | IPNPDOC ---
Text Note Date of Service The patient was seen on 05/02/21. 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 Patient had reported chronic diarrhea since November. Patient has reported over the last few days it has become greasy like. Upon evaluation in the ER on 04/29, imaging suggested metastatic spread of his underlying cancer. Patient was instructed to follow-up with his oncologist on 05/01 at which point patient was sent directly to the hospital for admission. Nephrology was called on consultation. Patient was seen and examined at the bedside. Patient reports that he has not experience any nausea, vomiting or any bowel movements since admission. Reports that he has been able to tolerate a clear liquid diet. Denies any chest pain, shortness of breath or palpitations. Patient has bilateral nephrostomy tubes with adequate urine output. Objective: Vitals (See below) General: Lying in bed, appears comfortable, AAOx3 HEENT: NC, AT CVS: +S1S2 Lungs: Fair air entry b/l, no wheezing, rales or rhonchi Abdomen: Soft, mildly distended, no significant tenderness appreciated today Extremities: 1+ pitting edema bilaterally Imaging: Duplex US 04/29: There is no ultrasonographic evidence of deep venous thrombosis involving any of the visualized deep venous structures of the left lower extremity as described above. CT abdomen / pelvis 04/29: 1. 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 2. Incomplete poorly evaluated changes to the bladder/prostate gland and rectosigmoid. CXR 05/01: Cardiomegaly without evidence of acute cardiopulmonary disease. US abdomen 05/02: Very minimal amount of ascites. Assessment and plan: Nausea / Vomiting / Diarrhea - Patient had reported nausea and vomiting over several days; currently, patient has not experienced any of the above symptoms since admission - Has reported diarrhea since November 2020; but over the last few days was noted to be greasy - Physical reveals abdominal distention - Unable to get complete paracentesis; imaging suggested in significant amount of fluid for paracentesis - Will repeat imaging of the abdomen with oral contrast to evaluate for any obstructive etiologies - Will likely DC GI panel - c/w Zofran PRN Hypokalemia - Will supplement s/p Hyponatremia - Will check osmolality, urine electrolytes 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 However, had refused in the past - Patient was also instructed to have a radical prostatectomy, however, had refused this when it was offered - Imaging recently completed does reveal evidence of hepatic lesions suggestive of metastatic spread - Called and discussed with Dr. Trejo; unfortunately not a good candidate for intervention / chemotherapy Prostate CA - s/p Radiation NIDDM2 - c/w ISS CKD3 / Bilateral nephrostomy tubes - 2/2 obstructive nephropathy - Clinically patient still exhibits signs of fluid overload - Baseline Cr from 04/04/2021 was noted to be 1.9 - Cr currently appears to be close to baseline - Will start gentle diuresis today - Nephrology on consultation; appreciate their input GERD - c/w home medications DVT prophylaxis - c/w heparin Code status: - DNR / DNI Disposition: - Discussed with daughter; Criss Judd and ; Ayse Nuñez yesterday about goals of care; understands extremely poor prognosis VS,Fishbone, I+O VS, Fishbone, I+O Laboratory Tests 05/01/21 14:10 05/02/21 08:13 Vital Signs Date Time Temp Pulse Resp B/P (MAP) Pulse Ox O2 Delivery O2 Flow Rate FiO2 05/02/21 11:15 18 Room Air 05/02/21 06:00 98.9 74 142/79 (100) 99 I&O- Last 24 Hours up to 6 AM 05/02/21 05:59 Intake Total 200 ml Output Total 300 ml Balance -100 ml SANA DOMINGUEZ MD May 02, 2021 13:12
[2021-05-02 14:00] VITALS: BP 131/75
[2021-05-02] MEDS: GASTROGRAFIN SOLUTION 30ML PO SCH ×2 (14:25→14:54)
[2021-05-02] MEDS ORDERED: FLEET ENEMA PR PRN (16:05)
--- NOTE | 2021-05-02 16:09 | REP ---
INDICATION: N/V/Diarrhea / ascites, hydronephrosis b/l nephrostomy COMPARISON: 04/29/2021 TECHNIQUE: Axial images from the lung bases to the pubic symphysis with coronal and sagittal reformations after the administration of oral contrast material. This CT examination was performed using the following dose reduction techniques: Automated exposure control, adjustment of mA and/or kv according to the patient's size, and use of iterative reconstruction technique. FINDINGS: Lung bases demonstrate small bilateral pleural effusions and bibasilar atelectasis which represent relatively new findings. Oral contrast noted in the distal esophagus and hiatal hernia. Liver again demonstrates hypodensities suspicious for metastatic disease. Spleen, pancreas, gallbladder, bilateral adrenal glands and kidneys are relatively normal/stable. Kidneys again demonstrate bilateral percutaneous nephrostomy tubes along with left renal atrophy and right renal hypodensity stable and likely cyst. The enteric system demonstrates continued colonic distention and fecal stasis. Oral contrast material is identified within relatively normal nondilated small bowel to the level of the terminal ileum and cecum. A distal colonic obstruction at the level of the rectosigmoid cannot be excluded and evaluation of the pelvis is severely limited due to lack of contrast, surrounding fluid and paucity of intraperitoneal fat. There is no free air to suggest bowel perforation. Further evaluation of the pelvis including evaluation of the bladder and prostate gland are also limited due to the lack of intrinsic and intravenous contrast as well as surrounding soft tissue structures and paucity of internal fat. A small to moderate amount of ascites is identified primarily in a perihepatic and perisplenic distribution and to a lesser extent within the right lower quadrant and pelvis. Mesenteric stranding as well as the possibility of mesenteric soft tissue/metastases cannot be excluded. Intraperitoneal a and retroperitoneal adenopathy cannot be excluded as well although findings within the abdomen and pelvis appear essentially unchanged. Atherosclerotic changes to the aorta noted without aneurysm. Surrounding musculoskeletal structures demonstrate stable degenerative changes without obvious acute osseous abnormality. IMPRESSION: 1. Colonic distension and fecal stasis similar to prior examination. Further evaluation of the colon is severely limited. Distal colonic obstruction at the pelvis involving the rectosigmoid cannot definitively be excluded and evaluation is limited due to lack of both intrinsic and intravenous contrast. 2. Relatively new small bilateral pleural effusions and bibasilar atelectasis. 3. Remainder of the examination demonstrates findings unchanged from 04/29/2021. <Electronically signed by Cirilo Daley > 05/02/21 [id number]
[2021-05-02] MEDS ORDERED: BISACODYL 10 MG SUPP PR SCH (16:45)
--- NOTE | 2021-05-02 18:19 | CR ---
NEPHROLOGY CONSULTATION DATE: 05/02/2021 REQUESTING PHYSICIAN: Kenya Owusu M.D. REASON FOR CONSULTATION: Fluid overload in this patient with obstructive uropathy status post bilateral percutaneous nephrostomies. HISTORY OF PRESENT ILLNESS: Mr. David Nuñez is an 85-year-old male with a past medical history of urothelial bladder cancer status post transurethral resection of bladder tumor (TURBT) in October of 2019, now with recent imaging suggestive of metastatic disease. 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 Patient was admitted to [facility] yesterday because of complaint of nausea, vomiting and diarrhea along with recent imaging that had suggested metastatic spread of his underlying cancer (CAT scan abdomen and pelvis done on April 29, 2021), along with new development of ascites and peripheral edema. Laboratory studies reveal that renal function is close to patient's usual baseline with creatinine on admission 2.0 and creatinine three days ago 1.8. Patient is pending paracentesis. He reports that he chronically has more output from the right nephrostomy as compared to the left nephrostomy. He has not had any more episodes of diarrhea since being admitted. He also denies any further nausea or vomiting. He is tolerating oral intake well. PAST MEDICAL HISTORY: 1. Prostate cancer status post radiation. 2. Bladder cancer status post transurethral resection of bladder tumor (TURBT), October 2019. 3. Diabetes mellitus type 2. 4. Obstructive uropathy with bilateral percutaneous nephrostomies. 5. Gastroesophageal reflux disease (GERD). PAST SURGICAL HISTORY: 1. Hernia repair times two. 2. Prostate radiation. 3. Percutaneous nephrostomies. 4. Transurethral resection of bladder tumor (TURBT). ALLERGIES: No known drug allergies. HOME MEDICATIONS: - hydroxyzine 25 mg by mouth at bedtime - Protonix 40 mg by mouth daily PRIMARY CARE PHYSICIAN: Eber Conway M.D. FAMILY HISTORY: Father at age 89. Mother at age 60 with history of heart disease and diabetes. SOCIAL HISTORY: Lives with his . Denies alcohol, tobacco or drugs. He is a patient of Dr. Eber Conway. He does not follow up with the cancer center regularly. REVIEW OF SYSTEMS: CONSTITUTIONAL: He reports generalized fatigue and weakness. Denies fevers or chills. EYES: Denies visual changes or tearing. EARS, NOSE, THROAT (ENT): Denies rhinorrhea or epistaxis. CARDIOVASCULAR: Reports leg swelling. Reports dyspnea with exertion. Denies chest pain or palpitations. RESPIRATORY: Reports dyspnea with exertion. Denies shortness of breath at rest. Denies cough. GASTROINTESTINAL: Reports increased abdominal distention. Reports recent nausea, vomiting and diarrhea. GENITOURIARY: Reports bilateral percutaneous nephrostomies. Reports bladder cancer and prostate cancer. ENDOCRINE: Reports diabetes mellitus. HEMATOLOGIC: Reports anemia. Denies anticoagulant use. MUSCULOSKELETAL: Reports leg swelling. Reports generalized weakness. NEUROLGOCIAL: Denies seizure or syncope. SKIN: Denies any new rashes or ulcers. The remainder of the review of systems is negative or as per history of present illness (HPI). PHYSICAL EXAMINATION: VITAL SIGNS: Temperature 98.0, pulse 75respiratory rate 16, blood pressure 131/75, saturating 96% on room air. INTAKE AND OUTPUT: Weight in the bed scale today was 60 kg. GENERAL: Patient was seen awake, alert and oriented times three, lying in bed with the head of the bed elevated, elderly male, appears chronically ill, but is not in any acute distress. HEENT: Extraocular muscles are intact. Tongue is moist. NECK: Jugular veins are mildly elevated. HEART SOUNDS: Regular. S1, S2. There is 1+ to 2+ pitting edema in the lower extremities that extends up to the thighs. LUNGS: Diminished at the bases bilaterally. There is no accessory muscle use. There is no tachypnea. He is comfortable on room air. ABDOMEN: Protuberant and distended. There are bilateral percutaneous nephrostomy tubes with urine leg bags. There is more urine in the right leg bag as compared to the left leg bag. NEUROLOGIC: He is oriented times three, interactive, conversational. Moves all four extremities on command. SKIN: Mild pallor, but no rashes. LABORATORY STUDIES: White count 5.7, hemoglobin 9.3, platelets 319. Sodium 136, potassium 3.3, bicarbonate 24, BUN 42, creatinine 2.0, magnesium 2.4. MICROBIOLOGY: Urine culture from each nephrostomy is pending. IMAGING: Renal ultrasound done yesterday is limited. The left kidney was not visualized. It also shows moderate right-sided hydronephrosis along with ascites. Prior CAT scan shows asymmetric atrophy of the left kidney. CAT scan done April 29, 2021 is reviewed, with small to moderate ascites and asymmetric left-sided renal atrophy. INPATIENT MEDICATIONS: Reviewed by myself. Patient received: - potassium chloride supplementation - heparin 5000 units subcutaneous every 8 hours - hydroxyzine 25 mg by mouth at bedtime - insulin - Protonix 40 mg intravenous (IV) daily - Tramadol as needed PROBLEMS: 1. Obstructive uropathy. Patient has a history of bilateral hydronephrosis secondary to bladder neoplasm. He is status post percutaneous nephrostomies bilaterally. He chronically reports more urine output to the right nephrostomy as compared to the left nephrostomy. CAT scan done three days ago shows chronic and asymmetric atrophic appearance of the left kidney. The atrophic appearance of the left kidney on CAT scan, along with patient reporting that the left nephrostomy puts out much less urine suggests that the left kidney is chronically poorly functional and most of his function in urine output comes from the right kidney. Renal ultrasound done yesterday shows that the right kidney is moderately hydronephrotic. It looks to be a chronic hydronephrosis. He is in fluid overload with small to moderate ascites and peripheral edema. I had initially planned to hold off on diuresing him today, as patient was supposed to have a paracentesis. However, ascites was not felt to be sufficient enough for paracentesis. Hence, we will give a dose of IV Lasix and see how he responds. 2. Hypokalemia. IV and oral supplementation is given. 3. Bladder cancer with obstructive uropathy status post bilateral percutaneous nephrostomies with ongoing obstruction on recent renal imaging and now with new development of ascites along with hepatic lesion seen on CAT scan suggestive of metastatic spread. Patient's overall prognosis is very poor. If his renal function worsens, then I would suggest to have urology recommendations to see if anything further can be done for his obstruction. 4. Hypervolemic hyponatremia. It is mild. It is improving. I would not aggressively diurese this patient given his obstructive uropathy. He is saturating well on room air. His ascites is minimal. There is no need for aggressive diuresis at this time. 5. Nausea, vomiting diarrhea. Appears to have resolved. Patient is tolerating oral intake. He has not had any bowel movements since he was admitted. We will try to gently diurese him, as he does have mild fluid overload on exam. DISPOSITION: Patient's overall prognosis is poor. Thank you for involving me in the care of Mr. Nuñez. I shall be happy to follow him along with you.
[2021-05-02] MEDS: PANTOPRAZOLE 40MG VIAL (C9113 PER 1) IV SCH (21:11)
[2021-05-02] MEDS: hydrOXYzine 25 MG TAB PO SCH (21:11)
[2021-05-02 22:00] VITALS: BP 140/81
[2021-05-03] MEDS: HEPARIN SOD (PORCINE) 5000UNITS/ML 1ML VIAL/SYRINGE SC SCH (05:27)
[2021-05-03 06:00] VITALS: BP 140/77
[2021-05-03 06:44] LABS: BASO % 0.4 % (0.0-1.0); EOS # 0.1 10^3/uL (0.0-0.5); EOS % 1.4 % (0.0-3.0); HEMATOCRIT 27.8 % (42.0-52.0); LYMPH # 1.3 10^3/uL (1.5-5.0); LYMPH % 26.5 % (24.0-44.0); MEAN CORPUSCULAR HEMOGLOBIN 28.1 pg (27.0-33.0); MEAN CORPUSCULAR HGB CONC 32.4 g/dl (32.0-36.5); MEAN CORPUSCULAR VOLUME 86.9 fl (80.0-96.0); MONO # 0.7 10^3/uL (0.0-0.8); MONO % 13.7 % (2.0-8.0); NEUTROPHILS # 2.9 10^3/uL (1.5-8.5); NEUTROPHILS % 57.8 % (36.0-66.0); PLATELET COUNT, AUTOMATED 271 10^3/uL (150-450)
[2021-05-03 07:00] LABS: CALCIUM LEVEL 8.4 MG/DL (8.8-10.2); CREATININE FOR GFR 1.9 MG/DL (0.70-1.30); MAGNESIUM LEVEL 2.3 MG/DL (1.8-2.4); POTASSIUM SERUM 3.9 MEQ/L (3.5-5.1)
--- NOTE | 2021-05-03 07:08 | CR ---
CONSULTATION DATE: 05/02/2021 REASON FOR CONSULTATION: Colonic obstruction. 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 This was locally resected cystoscopically. He was counseled that appropriate treatment would be a cystectomy but given the patient's age and other medical issues, this course was not taken. He had previously received radiation therapy for prostate cancer. He presented in about May of 2020 with bilateral hydronephrosis and renal failure, presumed related to progression of his cancer. He underwent bilateral percutaneous nephrostomies. The patient has done fairly well with this. Over the last several months he has reported chronic diarrhea. More recently he has noticed some abdominal distention. He presented to the Emergency Department on referral from the cancer center for abdominal distention with nausea and vomiting and an absence of bowel movements for several days. He was admitted by the Hospitalist. A CT scan shows a distended colon all the way from the cecum to the area of the rectosigmoid. The colon is quite thickened and full of fluid and air. I have been asked to evaluate the patient. ALLERGIES: The patient denies any known drug allergies. HOME MEDICATIONS: Home medications apparently include: 1. Hydroxyzine. 2. Protonix. 3. He has p.r.n. medications of an antidiarrheal medication, Zofran and Tramadol. PAST MEDICAL HISTORY: The patient's past medical history is significant for: 1. Prostate cancer treated with radiation in the past. 2. He had a transitional cell carcinoma of the bladder treated with transurethral resection of his bladder tumor in about October of 2019. 3. He also has non insulin dependent diabetes. 4. Bilateral nephrostomy tubes for bilateral ureteral obstructions. 5. History of gastroesophageal reflux disease. 6. Chronic kidney disease stage 3. PAST SURGICAL HISTORY: The patient's past surgical history includes: 1. Hernia repairs on two occasions. 2. Cystoscopic resection of his bladder tumor. FAMILY HISTORY: The patient's family history is noncontributory at his age. SOCIAL HISTORY: The patient is and lives with his at home. He has a daughter in town who is a nurse. The patient is fully retired. REVIEW OF SYSTEMS: The patient's review of systems shows no history of chest pains or palpitations. He denies any shortness of breath or wheezing. He has been quite weak recently. He reports that the diarrhea has been persistent until very recently when it has diminished and stopped. He feels bloated and uncomfortable. He did have nausea and vomiting apparently at the time of admission but this has stopped. PHYSICAL EXAMINATION: VITAL SIGNS: Tonight temperature of 98 degrees, pulse of 84, respirations of about 18 and his blood pressure is 140/81. GENERAL APPEARANCE: A somewhat frail appearing elderly man. He was dozing when I came to see him but awakened to voice. He appears somewhat pale. HEENT: Sclerae are anicteric. NECK: Supple. HEART: Regular rhythm. LUNGS: Bilateral breath sounds that are clear. ABDOMEN: Somewhat distended. He has a few bowel sounds present. There is tympani to percussion across the upper and mid abdomen. The abdomen is full and has some mild diffuse tenderness to palpation. LABORATORY STUDIES: Today white count of 6, hemoglobin 9, hematocrit 29 and a platelet count of 319,000. Differential count showed 66% neutrophils, 20% lymphocytes and 121% monocytes. Chemistry profile today showed a sodium of 136, potassium 3.3, chloride 102, CO2 of 24, BUN of 42, creatinine 2.0 and a glucose of 82. IMAGING: Today a CT scan of the abdomen and pelvis I reviewed the images myself as well as the report. He has colonic distention from the cecum all the way down into the pelvis. He was noted to have some small bilateral pleural effusions. He has some ascites as well. His nephrostomy tubes are noted within somewhat atrophic appearing kidneys. IMPRESSION: The patient appears to have a colonic obstruction in the area of the rectosigmoid which is likely related to direct invasion of his bladder cancer. His history of diarrhea over the last few months would be consistent with a gradually worsening stricture, but now he has progressed to an obstruction. His cancer had previously caused obstruction of the ureters bilaterally which was addressed by nephrostomy tubes. He has been noted to have presumed metastases within the liver. The patient appears frail and has some ascites and pleural effusions which are also likely related to his tumor advancement, but also suggest some poor nutrition. RECOMMENDATIONS: I suspect very strongly that this represents advancement of his tumor with invasion of the rectum. I discussed with the patient options for further evaluation and treatment. I advised him that there is a chance his colon could perforate and that would lead to fecal peritonitis and likely a fairly rapid . We could proceed with a diverting colostomy and give him what will be a lifelong colostomy. We could see if Gastroenterology is able to perform an endoscopic exam and potentially if they believe the patient is a candidate, stent his stricture. The other alternative would be to provide comfort measures and potentially discharge him home with Hospice. Unfortunately if his obstruction is unrelieved, he will be likely unable to eat or drink anything of significance. After seeing the patient, I spoke with his daughter and by telephone on a speaker phone at their home. I explained the situation to them. The daughter who is the nurse feels strongly that her father would likely want to come where he could spend his final days with his family around him. I did speak to them about the potential for a gastroenterology evaluation regarding the possibility of a stent, and they are not currently strongly in favor of that. The patient's advised me that he had said before that he would never want a colostomy. I explained that even if a colostomy was performed, it would not help to slow the growth of his cancer or likely provide a much longer life span. After some discussion, we agreed that his daughter and would speak with other members of the family. Apparently there is another son and daughter. They will speak with the patient as well. I told them that I think returning home with Hospice is likely an excellent plan and would provide him the most comfort and the most enjoyment in this period of his life, as he would be able to be surrounded by family.
[2021-05-03] MEDS: HumaLOG INSULIN (NovoLOG) PER UNIT SC SCH (07:30)
[2021-05-03] MEDS ORDERED: FLEET ENEMA PR SCH (08:00)
[2021-05-03] MEDS ORDERED: LORazepam 1 MG TAB PO PRN (10:50)
[2021-05-03] MEDS ORDERED: ONDANSETRON 4 MG ORAL DISINTEGRATING TAB PO PRN (10:50)
[2021-05-03] MEDS ORDERED: MORPHINE 10MG/0.5ML ORAL CONCENTRATE SOLUTION U/D SL PRN (10:50)
[2021-05-03] MEDS ORDERED: SCOPOLAMINE 1MG TRANSDERMAL PATCH TOP PRN (10:50)
--- NOTE | 2021-05-03 13:06 | ECHO ---
ECHOCARDIOGRAM DATE OF PROCEDURE: 05/01/2021 Age: 85 Gender: Male Height: 64 inches Weight: 132 pounds Body surface area: 1.64 m2 PATIENT LOCATION: Inpatient, [address] [place] [address], Room 5143. REFERRING PHYSICIAN: Kenya Owusu M.D. INDICATION: Edema. MEASUREMENTS: 2D Measurements: RV - 3.7 cm LV - 4.2 cm Septum 1.1 cm Posterior wall 1.0 cm Aortic root 3.0 cm LA - 4.0 cm LVEF 65% Doppler Measurements: AV - 1.13 m/sec LVOT - 0.8 m/sec LVOT diameter 2.0 cm MV-E 68, A 80, EA ratio 0.9 Early mitral deceleration time 254 msec E prime medial 6.6 A prime medial 9.1 E prime lateral 7.2 Average E/E prime ratio 9.9/PCWP 14 mmHg PV - 0.8 m/sec Pulmonary artery acceleration time 140 msec RVSP - 34 mmHg IVC - 1.7 cm COMMENTS: Normal sinus rhythm without intraventricular conduction disturbance. M-mode and 2-dimensional cardiography was performed with pulse, continuous wave, color flow and tissue Doppler studies. Normal left ventricular size with wall thickness upper limits of normal with normal wall motion. Borderline left atrial enlargement with grade 1 left ventricular (LV) diastolic dysfunction, but currently normal estimated mean left atrial pressure. Normal right heart chamber sizes and motion with Doppler evidence of mild pulmonary hypertension. Normal inferior vena cava (IVC) size and collapse against an elevated central venous pressure. Normal aortic dimensions. Mild aortic valvular sclerosis without stenosis and very mild insufficiency. Mild degenerative changes of the mitral valvular apparatus without inflow tract obstruction and only mild insufficiency. Normal appearing tricuspid valve with mild insufficiency. No apparent intracardiac mass or pericardial effusion.
--- NOTE | 2021-05-03 13:06 | IPN ---
PROGRESS NOTE DATE: 05/03/2021 SUBJECTIVE: Mr. Nuñez is seen and examined this morning at the bedside. He is NPO today. I note evaluation with Dr. Mathews this morning for colonic obstruction related to invasion of bladder cancer and discussion for a probable change of status to comfort measures only. Patient denies any new complaints. He continues to saturate while on room air. His renal function has been stable the past 24 hours. He received a dose of Lasix yesterday. OBJECTIVE: VITAL SIGNS: Temperature is 97.9, pulse is 85, respiratory rate is 18, blood pressure is 140/77, saturating 96% on room air. INTAKE AND OUTPUT: Intake yesterday was 1.4 liters and urine output was 1.1 liter. Weight on the bed scale today is 60.5 kg. GENERAL: Patient is seen walking around the room and in bed. Elderly male in no distress. Thin, frail and chronically ill-appearing. HEENT: Extraocular muscles are intact. Tongue is moist. NECK: Supple. Jugular veins are mildly elevated. HEART: S1 and S2, regular. There is 1+ leg edema bilaterally. LUNGS: Diminished breath sounds at the bases but he is comfortable. There is no accessory muscle use or tachypnea. He is on room air. ABDOMEN: Soft with distention. There is bilateral percutaneous nephrostomies with leg bags with clear yellow urine. NEUROLOGIC: He is oriented x3. Moves all four extremities on command. LABORATORY DATA: Hemoglobin is 9.0, white count is 5.0, platelets 271,000, sodium is 139, potassium is 3.9, BUN 39, creatinine 1.9. Magnesium is 2.3. Urine cultures are pending. CT of the abdomen and pelvis done yesterday with oral contrast showed possible distal colonic obstruction involving the rectosigmoid colon. INPATIENT MEDICATIONS: Reviewed by myself. He got a dose of IV Lasix yesterday. There is no diuretic ordered for today. PROBLEMS: 1. Obstructive uropathy secondary to malignancy and status post bilateral nephrostomy tubes. Patient's renal function is stable. There is mild to moderate fluid overload but he is NPO and there is no need for diuresis today. He is saturating well on room air. His overall prognosis is poor in the setting of metastatic cancer. 2. Nausea, vomiting and diarrhea. Patient had an abnormal CT of abdomen and pelvis yesterday. Surgical input from Dr. Mathews as noted. Discussing the colonic obstruction in the rectosigmoid likely related to direct invasion of bladder cancer. Patient is most likely going to change status to comfort measures. 3. Hypokalemia, status post potassium supplementation. It has resolved. 4. Disposition: Nephrology is signing off at this time. If patient wishes to continue with medical care, I will be happy to see the patient once more. It is to my understanding that his prognosis is poor and the patient is leaning towards comfort measures at this time and hospice care.
--- NOTE | 2021-05-03 13:52 | IPNPDOC ---
Text Note Date of Service The patient was seen on 05/03/21. NOTE Subjective: Patient is an 85-year-old male with a PMHx of Prostate CA (s/p Radiation), Bladder (Urothelial) CA (s/p TURBT 10/2019), NIDDM2, GERD who pres ented to [facility] as a direct admission for nausea, vomiting and diarrhea. Patient had reported chronic diarrhea since November. Patient has reported over the last few days it has become greasy like. Upon evaluation in the ER on 04/29, imaging suggested metastatic spread of his underlying cancer. Patient was instructed to follow-up with his oncologist on 05/01 at which point patient was sent directly to the hospital for admission. Nephrology was called on consultation. Surgery was called on consultation yesterday after imaging suggested obstruction in the distal colon. After extensive discussion with patient and family, patient had opted against any aggressive surgical intervention. Instead a decision to proceed with comfort measures was decided. I have seen and examined the patient at the bedside. I have again discussed goals of care and we have proceeded with comfort measures. MOLST form has been updated to reflect this change. I have called and discussed the case with patient's and daughter. Will seek hospice at home setup. Currently patient has not experience any nausea, vomiting, chest pain or abdominal discomfort. He still has not had any bowel movements and realistically it is unlikely that he will have any bowel movements given his obstruction. Patient continues to have output from his nephrostomy tubes. Objective: Vitals (See below) General: Sitting up in bed, appears to be relatively comfortable. He is not in any acute distress, is awake, alert and oriented to person, place and time HEENT: HM manic and normocephalic CVS: +S1S2 Lungs: Appears to have fair air entry bilaterally without any auscultated of crackles, wheezing or rhonchi Abdomen: Soft, mildly distended, no significant tenderness Extremities: LE with 1+ pitting edema bilaterally Imaging: Duplex US 04/29: There is no ultrasonographic evidence of deep venous thrombosis involving any of the visualized deep venous structures of the left lower extremity as described above. CT abdomen / pelvis 04/29: 1. 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 2. Incomplete poorly evaluated changes to the bladder/prostate gland and rectosigmoid. CXR 05/01: Cardiomegaly without evidence of acute cardiopulmonary disease. US abdomen 05/02: Very minimal amount of ascites. CT abdomen / pelvis 05/02: 1. Colonic distension and fecal stasis similar to prior examination. Further evaluation of the colon is severely limited. Distal colonic obstruction at the pelvis involving the rectosigmoid cannot definitively be excluded and evaluation is limited due to lack of both intrinsic and intravenous contrast. 2. Relatively new small bilateral pleural effusions and bibasilar atelectasis. 3. Remainder of the examination demonstrates findings unchanged from 04/29/2021. Assessment: Nausea / Vomiting / Diarrhea - likely 2/2 colonic obstruction - likely 2/2 progressive metastatic cancer s/p Hypokalemia s/p Hyponatremia Suspected metastatic bladder (Urothelial) CA (s/p TURBT 10/2019) Prostate CA NIDDM2 CKD3 / Bilateral nephrostomy tubes - 2/2 obstructive nephropathy GERD DVT prophylaxis Plan: - Patient has been transitioned to comfort measures - MOLST form update - Will be seeking hospice at home placement once available - Nonessential medications were discontinued - Medications for comfort alone instituted Code status: - DNR / DNI Disposition: - Called and discussed care plan with daughter; Criss Judd and ; Ayse Nuñez VS,Alvino, I+O VS, Alvino, I+O Laboratory Tests 05/03/21 05:53 Vital Signs Date Time Temp Pulse Resp B/P (MAP) Pulse Ox O2 Delivery O2 Flow Rate FiO2 05/03/21 06:00 97.9 85 18 140/77 (98) 96 Room Air I&O- Last 24 Hours up to 6 AM 05/03/21 06:00 Intake Total 1250 ml Output Total 1825 ml Balance -575 ml SANA DOMINGUEZ MD May 03, 2021 13:52
[2021-05-03] MEDS ORDERED: HYOS125TA PO (15:14)
[2021-05-03] MEDS ORDERED: ATIV1TAB10 PO (15:14)
[2021-05-03] MEDS ORDERED: MORP1SOL5 PO (15:14)
--- NOTE | 2021-05-03 16:23 | DS.PDOC ---
Discharge Summary General Date of Admission May 01, 2021 at 12:51 Date of Discharge 05/03/2021 Discharge Summary PROCEDURES PERFORMED DURING STAY: [None]. ADMITTING DIAGNOSES / DISCHARGE DIAGNOSES: Nausea / Vomiting / Diarrhea - likely 2/2 colonic obstruction - likely 2/2 progressive metastatic cancer s/p Hypokalemia s/p Hyponatremia Suspected metastatic bladder (Urothelial) CA (s/p TURBT 10/2019) Prostate CA NIDDM2 CKD3 / Bilateral nephrostomy tubes - 2/2 obstructive nephropathy GERD DVT prophylaxis COMPLICATIONS/CHIEF COMPLAINT: Nausea / Vomiting / Diarrhea HISTORY OF PRESENT ILLNESS / HOSPITAL COURSE: Patient is an 85-year-old male with a PMHx of Prostate CA (s/p Radiation), Bladder (Urothelial) CA (s/p TURBT 10/2019), NIDDM2, GERD who presented to [facility] as a direct admission for nausea, vomiting and diarrhea. Patient had reported chronic diarrhea since November. Patient has reported over the last few days it has become greasy like. Upon evaluation in the ER on 04/29, imaging suggested metastatic spread of his underlying cancer. Patient was instructed to follow-up with his oncologist on 05/01 at which point patient was sent directly to the hospital for admission. Nephrology was called on consultation. Surgery was called on consultation yesterday after imaging suggested obstruction in the distal colon. After extensive discussion with patient and family, patient had opted against any aggressive surgical intervention. Instead a decision to proceed with comfort measures was decided. I have seen and examined the patient at the bedside. I have again discussed goals of care and we have proceeded with comfort measures. MOLST form has been updated to reflect this change. I have called and discussed the case with patient's and daughter. Currently patient has not experience any nausea, vomiting, chest pain or abdominal discomfort. He still has not had any bowel movements and realistically it is unlikely that he will have any bowel movements given his obstruction. Patient continues to have output from his nephrostomy tubes. Patient will be transitioned home with hospice today. Patient's daughter is a retired hospice nurse for the same [employer] and she will be helping in the interim until hospice will assume his care starting Thursday. DISCHARGE MEDICATIONS: Please see below. ALLERGIES: Please see below. PHYSICAL EXAMINATION ON DISCHARGE: Vitals (See below) General: Sitting up in bed, appears to be relatively comfortable. He is not in any acute distress, is awake, alert and oriented to person, place and time HEENT: HM manic and normocephalic CVS: +S1S2 Lungs: Appears to have fair air entry bilaterally without any auscultated of crackles, wheezing or rhonchi Abdomen: Soft, mildly distended, no significant tenderness Extremities: LE with 1+ pitting edema bilaterally LABORATORY DATA: Please see below. IMAGING: Duplex US 04/29: There is no ultrasonographic evidence of deep venous thrombosis involving any of the visualized deep venous structures of the left lower extremity as described above. CT abdomen / pelvis 04/29: 1. 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 2. Incomplete poorly evaluated changes to the bladder/prostate gland and rectosigmoid. CXR 05/01: Cardiomegaly without evidence of acute cardiopulmonary disease. US abdomen 05/02: Very minimal amount of ascites. CT abdomen / pelvis 05/02: 1. Colonic distension and fecal stasis similar to prior examination. Further evaluation of the colon is severely limited. Distal colonic obstruction at the pelvis involving the rectosigmoid cannot definitively be excluded and evaluation is limited due to lack of both intrinsic and intravenous contrast. 2. Relatively new small bilateral pleural effusions and bibasilar atelectasis. 3. Remainder of the examination demonstrates findings unchanged from 04/29/2021. ACTIVITY: [As tolerated]. DISCHARGE PLAN: Follow-up with primary care provider as needed Remain compliant with treatment plan and medications Return to the ER if you experience any problems DISPOSITION: Home with hospice CODE STATUS: DNR / DNI / SODA JERKER TIME SPENT ON DISCHARGE: 35 minutes. Vital Signs/I&Os Vital Signs Date Time Temp Pulse Resp B/P (MAP) Pulse Ox O2 Delivery O2 Flow Rate FiO2 05/03/21 06:00 97.9 85 18 140/77 (98) 96 Room Air I&O- Last 24 Hours up to 6 AM 05/03/21 06:00 Intake Total 1250 ml Output Total 1825 ml Balance -575 ml Laboratory Data Labs 24H Laboratory Tests 2 05/02/21 16:31: Bedside Glucose (Misc Panel) 101 05/03/21 05:53: Immature Granulocyte % (Auto) 0.2, Neutrophils (%) (Auto) 57.8, Lymphocytes (%) (Auto) 26.5, Monocytes (%) (Auto) 13.7H, Eosinophils (%) (Auto) 1.4, Basophils (%) (Auto) 0.4, Neutrophils # (Auto) 2.9, Lymphocytes # (Auto) 1.3L, Monocytes # (Auto) 0.7, Eosinophils # (Auto) 0.1, Basophils # (Auto) 0.0, Nucleated Red Blood Cells % (auto) 0.0, Anion Gap 7L, Glomerular Filtration Rate 36.0, Calcium Level 8.4L, Magnesium Level 2.3 CBC/BMP Laboratory Tests 05/03/21 05:53 FSBS Laboratory Tests Test 05/02/21 16:31 Range/Units Bedside Glucose (Misc Panel) 101 83-110 MG/DL Microbiology Microbiology 05/01/21 Urine Culture, Received Pending 05/01/21 Urine Culture, Received Pending Discharge Medications Scheduled PRN Hyoscyamine Sulfate (Hyoscyamine Sulfate) 0.125 Mg Tab.subl, 0.125 MG PO Q4HP PRN for TERMINAL SECRETIONS Use sublingually if unable to swallow Lorazepam (Ativan) 0.5 Mg Tablet, 0.5 MG PO Q4HP PRN for ANXIETY/AGITATION Use sublingually if unable to swallow Morphine Sulfate (Morphine Sulfate) 100 Mg/5 Ml Solution, 0.25-1 ML PO Q2H PRN for PAIN OR DYSPNEA Use sublingually if unable to swallow Ondansetron (Ondansetron Odt) 4 Mg Tab.rapdis, 1 TAB PO Q6-8HP PRN for nausea/vomiting Allergies Coded Allergies: No Known Allergies (Unverified , 06/13/20) SANA DOMINGUEZ MD May 03, 2021 16:23
== END 2021-05-03 19:35 | disposition home or self-care (01) | DRG 641 ==
LOC: M MS5PR 12:51
PROVIDERS: ADMIT General Practice; ATTEND Internal Medicine
DX: E87.1 Hypo-osmolality and hyponatremia (principal); C79.11 Secondary malignant neoplasm of bladder; K56.609 Unspecified intestinal obstruction, unspecified as to partial versus complete obstruction; C78.7 Secondary malignant neoplasm of liver and intrahepatic bile duct; R11.2 Nausea with vomiting, unspecified; R19.7 Diarrhea, unspecified; C61 Malignant neoplasm of prostate; E87.6 Hypokalemia; K21.9 Gastro-esophageal reflux disease without esophagitis; N18.30 Chronic kidney disease, stage 3 unspecified; E11.9 Type 2 diabetes mellitus without complications; Z51.5 Encounter for palliative care; Z92.3 Personal history of irradiation; Z79.899 Other long term (current) drug therapy